=== PATIENT | male | born 1930 | race Caucasian/White ===

== ENCOUNTER 2016-09-12 18:03 | Inpatient (IN) | payer MEDICARE, OTHER ==
[2016-09-12 18:04] VITALS: PULSE 80; BMI 19.5
[2016-09-12] MEDS ORDERED: Vancomycin 1 gm/NS 200 ml 1 GM/200 ML BAG IVPB STA (18:53)
[2016-09-12] MEDS ORDERED: Cefepime IV 2 gm in Dextrose 2 GM/100 ML BAG IVPB STA (18:53)
[2016-09-12] MEDS ORDERED: Moxifloxacin IV 400mg/250ml NS 400 MG/250 ML BAG IVPB STA (18:53)
[2016-09-12 19:13] LABS: BASO # 0.1 K/uL (0.0-0.2); BASO % 0.5 % (0.0-2.0); EOS # 0.1 K/uL (0.0-0.7); EOS % 0.7 % (0.0-4.0); HEMATOCRIT 30.8 % (35.0-51.0); LYMPH # 0.7 K/uL (1.0-4.3); LYMPH % 4.1 % (20.0-40.0); MEAN CORPUSCULAR HEMOGLOBIN 26.8 pg (27.0-31.0); MEAN CORPUSCULAR HGB CONC 31.5 g/dL (33.0-37.0); MEAN PLATELET VOLUME 7.8 fL (7.2-11.7); MONO # 0.6 K/uL (0.0-0.8); MONO % 3.6 % (0.0-10.0); PLATELET COUNT 365 K/uL (130-400); RED CELL DISTRIBUTION WIDTH 13.6 % (11.5-14.5); WHITE BLOOD COUNT 15.7 K/uL (4.8-10.8)
[2016-09-12 19:13] LABS: VENOUS BLOOD GAS BASE EXCESS -4.8 mmol/L (0.0-2.0); VENOUS BLOOD GAS PCO2 47 mmHg (40-60); VENOUS BLOOD PH 7.28 (7.32-7.43)
--- NOTE | 2016-09-12 19:15 | C.PDOC ---
History Of Present Illness 86 y/o male sent from shelter for SOB and elevated white count. He was hypotensive and tachycardic. Pt poor historian. When asked why he is here, patient states he has "no idea what's happening...and feels fine." No complaints at this time. He was admitted here in Jun for CHF with pneumonia. He had a new onset afib at that time. Time Seen by Provider: 09/12/16 18:44 Chief Complaint (Nursing): Shortness Of Breath History Per: Patient History/Exam Limitations: clinical condition Recent travel outside of the [place]: No Additional History Per: [facility] Past Medical History Reviewed: Historical Data, Nursing Documentation, Vital Signs Vital Signs: Last Vital Signs Temp 97.2 F L 09/12/16 18:16 Pulse 103 H 09/12/16 20:48 Resp 24 09/12/16 20:48 BP 109/58 L 09/12/16 20:48 Pulse Ox 100 09/12/16 20:48 - Medical History PMH: Anemia, Arthritis, Bronchitis, COPD, Emphysema, Gastritis, HTN, Osteoporosis, Chronic Kidney Disease - [facility] Procedures BONE MARROW BIOPSY (10/20/03) CLOSED ENDOSCOPIC BIOPSY OF LARGE INTESTINE (05/02/14) COLONOSCOPY (10/20/03) ESOPHAGOGASTRODUODENOSCOPY [EGD] W/CLOSED BIOPSY (10/20/03) EXCISION OF ASCENDING COLON, ENDO, DIAGN (06/09/16) EXCISION OF LEFT UPPER LUNG LOBE, PERC APPROACH, DIAGN (06/09/16) EXCISION OF SIGMOID COLON, ENDO, DIAGN (06/09/16) EXCISION OF STOMACH, ENDO, DIAGN (06/09/16) INJECT STEROID (10/20/03) INJECTION INTO JOINT (10/20/03) INSPECTION OF UPPER INTESTINAL TRACT, ENDO (05/27/16) INTRODUCTION OF NUTRITIONAL INTO PERIPH ART, PERC APPROACH (06/09/16) PACKED CELL TRANSFUSION (10/20/03) RESECTION OF APPENDIX, OPEN APPROACH (06/09/16) RESECTION OF SIGMOID COLON, OPEN APPROACH (06/09/16) TRANSFUSE NONAUT RED BLOOD CELLS IN PERIPH VEIN, PERC (06/09/16) VACCINATION NEC (05/02/14) Family History: States: Unknown Family Hx, Diabetes - Social History Hx Tobacco Use: No (quit 15 yrs ago, was a heavy smoker) Hx Alcohol Use: Yes Hx Substance Use: No - Immunization History Hx Tetanus Toxoid Vaccination: No Hx Influenza Vaccination: No Hx Pneumococcal Vaccination: No Review Of Systems Review Of Systems: ROS cannot be obtained secondary to pt's inabilty to answer questions. Respiratory: Positive for: Shortness of Breath Physical Exam - Physical Exam Appears: In Acute Distress, Chronically Ill, Other (cachectic) Skin: Warm, Dry, No Rash Head: Atraumatic, Normacephalic Oral Mucosa: Dry Neck: Normal, Normal ROM, Supple Lymphatic: No Adenopathy Chest: Symmetrical Cardiovascular: Rhythm Regular (tachycardic), No Murmur Respiratory: No Accessory Muscle Use, No Rales, Rhonchi (course rhonchi L>R), No Wheezing Gastrointestinal/Abdominal: Soft, No Tenderness Back: Normal Inspection, No CVA Tenderness Extremity: No Pedal Edema Extremity: Bilateral: Atraumatic Neurological/Psych: Normal Motor, Normal Sensation ED Course And Treatment - Laboratory Results Result Diagrams: 09/12/16 19:06 09/12/16 19:06 Lab Interpretation: Abnormal (WBC 15.7 with left shift, BUN 116 Cr 2.6 c/w severe dehydration) ECG: Interpreted By Tn ECG Rhythm: Sinus Tachycardia ECG Interpretation: Abnormal O2 Sat by Pulse Oximetry: 100 (room air) Pulse Ox Interpretation: Normal - Radiology CXR: Interpreted by Me CXR Interpretation: Yes: Other (chronic interstitial changes. LLL pneumonia) Progress Note: Plan: labs, EKG, CXR, UA, avelox, maxipime in dextrose Reevaluation Time: 20:59 Reassessment Condition: Unchanged - Physician Consult Information Outcome Of Conversation: Case discussed with Dr Jayson Doan. Patient to be evaluated for admission to ICU due to severe dehydration with hypotension. IV fluids and antibiotics started in ED. Disposition - Disposition Disposition: HOSPITALIZED Disposition Time: 21:01 Condition: GUARDED - POA Present On Arrival: None - Clinical Impression Clinical Impression: Pneumonia, Severe dehydration, Hypotension - Scribe Statement The provider has reviewed the documentation as recorded by the Elaine Carpenter Provider Attestation: All medical record entries made by the Scribe were at my direction and personally dictated by me. I have reviewed the chart and agree that the record accurately reflects my personal performance of the history, physical exam, medical decision making, and the department course for this patient. I have also personally directed, reviewed, and agree with the discharge instructions and disposition.
[2016-09-12 19:22] LABS: POTASSIUM 4.5 mmol/L (3.6-5.2)
[2016-09-12 19:23] LABS: INR 1.2
[2016-09-12 19:24] LABS: BILIRUBIN,TOTAL 0.5 mg/dL (0.2-1.3)
[2016-09-12 19:25] LABS: CALCIUM 8.9 mg/dl (8.6-10.4); PHOSPHOROUS 5.1 mg/dL (2.5-4.5); TOTAL PROTEIN 7.2 g/dL (6.3-8.3)
[2016-09-12 19:26] LABS: MAGNESIUM 2.9 mg/dL (1.6-2.3)
[2016-09-12 19:29] LABS: ALB/GLOB RATIO 0.8 (1.0-2.1)
[2016-09-12] MEDS ORDERED: Sodium Chloride 0.9% 1,000 ML ONE (19:39)
[2016-09-12] MEDS ORDERED: Moxifloxacin IV 400mg/250ml NS 400 MG/250 ML BAG IVPB ONE (19:40)
[2016-09-12 19:55] LABS: NEUTROPHIL 89 % (50-75); TOTAL CELLS COUNTED 100
[2016-09-12] MEDS ORDERED: Sodium Chloride 0.9% 1,000 ML IV ONE (20:34)
[2016-09-12 20:54] LABS: RBC URINE < 1 /hpf (0-3); URINE BILIRUBIN NEGATIVE (NEGATIVE); URINE BLOOD NEGATIVE (NEGATIVE); URINE COLOR Yellow (YELLOW); URINE GLUCOSE (UA) NORMAL (Normal); URINE KETONE NEGATIVE (NEGATIVE); URINE LEUKOCYTE ESTERASE NEG Leu/uL (Negative); URINE PROTEIN NEGATIVE (NEGATIVE); URINE UROBILINOGEN NORMAL mg/dL (0.2-1.0); WBC URINE 2 /hpf (0-5)
--- NOTE | 2016-09-12 22:09 | CP.PCM.CON ---
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 patient had BUN/Cr of 27/1 on 08/17/16.Todays BUN/cr is 116/2.4 patient doesnot know why he was sent to hospital .daughter at bedside c/o cough and congestion,poor apitite and recent loss of weight.Denies chest pain and difficulty breathing Patient was living alone at home prior to admission to hospital end of may 2016.In [place] patient is wheelchair bound Review of Systems - Review of Systems Systems not reviewed;Unavailable: Unstable Vital Signs - Constitutional Constitutional: Anorexia, Fatigue, Weight Loss, Weakness. absent: Chills, Fever - EENT Eyes: absent: Change in Vision, Discharge Ears: absent: Ear Pain, Dizziness Nose/Mouth/Throat: absent: Nasal Congestion, Bleeding Gums, Dry Mouth, Neck Pain - Cardiovascular Cardiovascular: absent: Chest Pain, Diaphoresis, Dyspnea, Edema, Irregular Heart Rhythm, Leg Edema, Slow Heart Rate, Syncope - Respiratory Respiratory: Cough, Chest Congestion, Excessive Mucous Production. absent: Dyspnea, Hemoptysis, Wheezing - Gastrointestinal Gastrointestinal: absent: Abdominal Pain, Diarrhea, Nausea, Vomiting - Genitourinary Genitourinary: absent: Difficulty Urinating, Dysuria - Musculoskeletal Musculoskeletal: absent: Joint Swelling - Integumentary Integumentary: Dry Skin. 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 Alcohol: None (h/o excessive alchohol use in the past) Drugs: Denies - CARDIAC Hx Atrial Fibrillation: Yes Hx Hypertension: Yes - PULMONARY Hx Bronchitis: Yes Hx Chronic Obstructive Pulmonary Disease (COPD): Yes Hx Emphysema: Yes - NEUROLOGICAL Hx Neurological Disorder: No - HEENT Hx HEENT Problems: Yes Hx Cataracts: Yes - ENDOCRINE/METABOLIC Hx Hypothyroidism: No - HEMATOLOGICAL/ONCOLOGICAL Hx Anemia: Yes - INTEGUMENTARY Hx Dermatological Problems: No Hx Basil Cell: No Hx Sykes: No Hx Cellulitis: No Hx Eczema: No Hx Melanoma: No Hx Psoriasis: No Hx Squamous Cell: No Other/Comment: hx of temporary rashes. SI sacral ulcer - MUSCULOSKELETAL/RHEUMATOLOGICAL Hx Arthritis: Yes Hx Osteoporosis: Yes Other/Comment: h/o left hip surgery - GASTROINTESTINAL Hx Gastritis: Yes Other/Comment: Colon cancer and neuroendocrine tumor of appendix - GENITOURINARY/GYNECOLOGICAL Hx Sexually Transmitted Disorders: No - PSYCHIATRIC Hx Substance Use: No - SURGICAL HISTORY Hx Surgeries: Yes Hx Joint Replacement: Yes (left hip replacement) Hx Orthopedic Surgery: Yes (hip surgery) - ANESTHESIA Hx Anesthesia: Yes Hx Anesthesia Reactions: No Meds Allergies/Adverse Reactions: Allergies Allergy/AdvReac Type Severity Reaction Status Date / Time No Known Allergies Allergy Verified 05/27/16 01:08 Physical Exam - Constitutional Appears: No Acute Distress Additional comments: coughing - Head Exam Head Exam: ATRAUMATIC, NORMAL INSPECTION, NORMOCEPHALIC - Eye Exam Eye Exam: EOMI, Normal appearance Pupil Exam: NORMAL ACCOMODATION - ENT Exam ENT Exam: Mucous Membranes Dry - Neck Exam Neck exam: Positive for: Normal Inspection - Respiratory Exam Respiratory Exam: Rhonchi (bilateral rhonchi). absent: Chest Wall Tenderness, Rales, Respiratory Distress - Cardiovascular Exam Cardiovascular Exam: Tachycardia. absent: JVD - GI/Abdominal Exam GI & Abdominal Exam: Normal Bowel Sounds, Soft. absent: Guarding, Organomegaly , Tenderness - Rectal Exam Rectal Exam: Deferred - Exam Exam: NORMAL INSPECTION - Extremities Exam Extremities exam: Positive for: normal inspection. Negative for: calf tenderness, pedal edema, tenderness - Neurological Exam Neurological exam: Alert, Oriented x3 - Skin Skin Exam: Dry, Normal Color Results - Vital Signs Recent Vital Signs: Last Vital Signs Temp 97.2 F L 09/12/16 18:16 Pulse 102 H 09/12/16 21:11 Resp 25 H 09/12/16 21:11 BP 102/70 09/12/16 21:11 Pulse Ox 100 09/12/16 21:11 - Labs Result Diagrams: 09/12/16 19:06 09/12/16 19:06 - EKG Data EKG Interpreted by: Myself EKG shows normal: Sinus rhythm Rate: Tachycardia - Imaging and Cardiology Chest x-ray Status: Image reviewed by me (Bilateral increased intestitial markings,?mid lung infiltrates) Assessment & Plan - Assessment and Plan (Free Text) Assessment: 1.Acute Renal insufficiency/ dehydration- BUN/Cr was 27/1 on 08/17/16 slow hydration(pt with h/o CHF) hold lasix 2.Hypotension-?secondary to dehydration.r/o sepsis.Lactic acid normal.Chest xray with increased markings r/o pneumonia IV antibiotics given in ER rpt lactic acid level 3.H/O atrial fibrillation on [place]iltiazem in [place] 4.Hypothyrodism.Start meds.f/u TSH 5.anemia-f/u H/H 6.COPD-cont meds 7.Carcinoma colon/Neuroendocrine tumor appendix s/p resection,being f/u by Oncology
[2016-09-12 22:26] LABS: VENOUS BLOOD GAS BASE EXCESS -5.6 mmol/L (0.0-2.0); VENOUS BLOOD GAS PCO2 39 mmHg (40-60); VENOUS BLOOD PH 7.32 (7.32-7.43)
[2016-09-12] MEDS ORDERED: Dextrose 5%/0.9% NS 1,000 ML IV ONE (22:31)
[2016-09-12] MEDS ORDERED: guaiFENesin 100 mg/5 ml Syrup UD PO PRN (22:31)
[2016-09-13] MEDS: Albuterol-Ipratrop 3 mg / 0.5 (3 ml) UD INH SCH ×4 (02:14→19:17)
[2016-09-13 06:41] LABS: BASO # 0.1 K/uL (0.0-0.2); BASO % 0.4 % (0.0-2.0); EOS # 0.3 K/uL (0.0-0.7); LYMPH # 0.8 K/uL (1.0-4.3); LYMPH % 4.7 % (20.0-40.0); MEAN CELL VOLUME 84.9 fL (80.0-94.0); MEAN CORPUSCULAR HEMOGLOBIN 26.8 pg (27.0-31.0); MEAN CORPUSCULAR HGB CONC 31.6 g/dL (33.0-37.0); MEAN PLATELET VOLUME 7.5 fL (7.2-11.7); MONO # 0.7 K/uL (0.0-0.8); MONO % 4.4 % (0.0-10.0); PLATELET COUNT 299 K/uL (130-400); RED CELL DISTRIBUTION WIDTH 13.5 % (11.5-14.5); WHITE BLOOD COUNT 16.4 K/uL (4.8-10.8)
[2016-09-13] MEDS: Levothyroxine 100 MCG TAB PO SCH (06:42)
[2016-09-13 06:51] LABS: POTASSIUM 4.3 mmol/L (3.6-5.2)
[2016-09-13 06:53] LABS: ALB/GLOB RATIO 0.8 (1.0-2.1); BILIRUBIN,TOTAL 0.4 mg/dL (0.2-1.3); TOTAL PROTEIN 6.1 g/dL (6.3-8.3)
[2016-09-13 06:54] LABS: CALCIUM 8.1 mg/dl (8.6-10.4); PHOSPHOROUS 4.5 mg/dL (2.5-4.5)
[2016-09-13 06:55] LABS: MAGNESIUM 2.5 mg/dL (1.6-2.3)
[2016-09-13 07:24] LABS: THYROID STIMULATING HORMONE 0.62 mIU/L (0.46-4.68)
--- NOTE | 2016-09-13 07:48 | CP.CCUPN ---
Addendum entered and electronically signed by Tran Franco DO 09/13/16 12:31 : CT Chest: 12 mm right lung apex cavitary nodule re-identified, grossly stable. Irregular spiculated 10 mm nodule noted within the inferior aspect of the right upper lobe. 3.6 x 2.6 cm lingular masslike consolidation. Multiple additional scattered nodular and ground-glass patchy densities are evident. Bilateral left -[id number] compressive consolidations and small left pleural effusion. Recommend clinical correlation and continued follow-up. 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 Patient was admitted in June for CHF with pneumonia, where he had new onset A-Fib. Patient was seen and examined at bedside. He reports no SOB or pain. Patient is unaware of why he is in the hospital, states he feels fine. CCU Objective - Vital Signs / Intake & Output Vital Signs (Last 4 hours): Vital Signs Temp Pulse Resp BP Pulse Ox 09/13/16 06:00 91 H 26 H 121/57 L 98 09/13/16 05:00 100 H 24 113/53 L 100 09/13/16 04:00 97.6 F 09/13/16 03:59 82 21 115/60 100 Intake and Output (Last 8hrs): Intake & Output 09/12/16 09/13/16 09/13/16 22:59 06:59 14:59 Intake Total 800 Output Total 400 Balance 400 Intake: Intake, IV Amount 800 Left Forearm 800 Output: Urine 400 Urine, Voided 400 Other: Voiding Method Urinal - Physical Exam Head: Positive for: Atraumatic, Normocephalic Pupils: Positive for: PERRL Extroacular Muscles: Positive for: EOMI Mouth: Positive for: Dry Respiratory/Chest: Positive for: Decreased Breath Sounds, Rhonchi Cardiovascular: Positive for: Tachycardic Abdomen: Positive for: Normal Bowel Sounds Upper Extremity: Positive for: Normal Inspection, NORMAL PULSES. Negative for: Cyanosis, Edema Lower Extremity: Positive for: Normal Inspection, Edema, NORMAL PULSES. Negative for: CALF TENDERNESS Neurological: Positive for: GCS=15, CN II-XII Intact Skin: Positive for: Warm, Dry, Normal Color Psychiatric: Positive for: Alert, Oriented x 3 - Medications Active Medications: Active Medications Generic Name Dose Route Start Last Admin Trade Name Freq PRN Reason Stop Dose Admin Albuterol/Ipratropium 3 ml 09/13/16 02:00 09/13/16 07:26 Duoneb 3 Mg/0.5 Mg (3 Ml) Ud INH 3 ml RQ6 ANDREA Administration Famotidine 20 mg 09/13/16 10:00 Pepcid PO DAILY ANDREA Guaifenesin 100 mg 09/12/16 22:31 Robitussin PO Q4H PRN Cough Heparin Sodium (Porcine) 5,000 units 09/13/16 06:00 09/13/16 06:42 Heparin SC 5,000 units Q8 ANDREA Administration Dextrose/Sodium Chloride 1,000 mls @ 100 mls/hr 09/12/16 22:31 09/12/16 23:02 Dextrose 5%/0.9% Ns 1000 Ml IV 09/13/16 08:30 100 mls/hr .Q10H ONE Administration Moxifloxacin HCl 400 mg in 250 mls @ 167 mls/hr 09/13/16 10:00 Avelox Iv 400mg/250ml Ns IVPB Q24H [facility] Levothyroxine Sodium 100 mcg 09/13/16 06:30 09/13/16 06:42 Synthroid PO 100 mcg DAILY@0630 ANDREA Administration - Patient Studies Lab Studies: Lab Studies 09/13/16 09/13/16 09/13/16 Range/Units 06:52 06:38 06:38 WBC 16.4 H (4.8-10.8) K/uL RBC 3.06 L (4.40-5.90) Mil/uL Hgb 8.2 L (12.0-18.0) g/dL Hct 26.0 L (35.0-51.0) % MCV 84.9 (80.0-94.0) fL MCH 26.8 L (27.0-31.0) pg MCHC 31.6 L (33.0-37.0) g/dL RDW 13.5 (11.5-14.5) % Plt Count 299 (130-400) K/uL MPV 7.5 (7.2-11.7) fL Neut % (Auto) 88.5 H (50.0-75.0) % Lymph % (Auto) 4.7 L (20.0-40.0) % Wise % (Auto) 4.4 (0.0-10.0) % Eos % (Auto) 2.0 (0.0-4.0) % Baso % (Auto) 0.4 (0.0-2.0) % Neut # 14.5 H (1.8-7.0) K/uL Lymph # 0.8 L (1.0-4.3) K/uL Wise # 0.7 (0.0-0.8) K/uL Eos # 0.3 (0.0-0.7) K/uL Baso # 0.1 (0.0-0.2) K/uL pO2 (30-55) mm/Hg VBG pH (7.32-7.43) VBG pCO2 (40-60) mmHg VBG HCO3 mmol/L VBG Total CO2 (22-28) mmol/L VBG O2 Sat (Calc) (40-65) % VBG Base Excess (0.0-2.0) mmol/L VBG Potassium (3.6-5.2) mmol/L Sodium 140 (132-148) mmol/l Chloride 107 (98-107) mmol/L Glucose (75-110) mg/dl Lactate (0.7-2.1) mmol/L Potassium 4.3 (3.6-5.2) mmol/L Carbon Dioxide 18 L (22-30) mmol/L Anion Gap 19 (10-20) BUN 94 H (9-20) mg/dL Creatinine 2.0 H (0.8-1.5) MG/DL Est GFR ( Amer) 39 Est GFR (Non-Af Amer) 32 Random Glucose 104 (75-110) mg/dL Lactic Acid 1.2 (0.7-2.1) mmol/L Calcium 8.1 L (8.6-10.4) mg/dl Phosphorus 4.5 (2.5-4.5) mg/dL Magnesium 2.5 H (1.6-2.3) mg/dL Total Bilirubin 0.4 (0.2-1.3) mg/dL AST 11 L (17-59) U/L ALT 19 L D (21-72) U/L Alkaline Phosphatase 74 (38-126) U/L Total Protein 6.1 L (6.3-8.3) g/dL Albumin 2.8 L (3.5-5.0) g/dL Globulin 3.3 (2.2-3.9) gm/dL Albumin/Globulin Ratio 0.8 L (1.0-2.1) TSH 3rd Generation 0.62 (0.46-4.68) mIU/L Venous Blood Potassium (3.6-5.2) mmol/L /07/27 Range/Units 22:05 WBC (4.8-10.8) K/uL RBC (4.40-5.90) Mil/uL Hgb (12.0-18.0) g/dL Hct (35.0-51.0) % MCV (80.0-94.0) fL MCH (27.0-31.0) pg MCHC (33.0-37.0) g/dL RDW (11.5-14.5) % Plt Count (130-400) K/uL MPV (7.2-11.7) fL Neut % (Auto) (50.0-75.0) % Lymph % (Auto) (20.0-40.0) % Wise % (Auto) (0.0-10.0) % Eos % (Auto) (0.0-4.0) % Baso % (Auto) (0.0-2.0) % Neut # (1.8-7.0) K/uL Lymph # (1.0-4.3) K/uL Wise # (0.0-0.8) K/uL Eos # (0.0-0.7) K/uL Baso # (0.0-0.2) K/uL pO2 43 (30-55) mm/Hg VBG pH 7.32 (7.32-7.43) VBG pCO2 39 L (40-60) mmHg VBG HCO3 19.9 mmol/L VBG Total CO2 21.3 L (22-28) mmol/L VBG O2 Sat (Calc) 83.2 H (40-65) % VBG Base Excess -5.6 L (0.0-2.0) mmol/L VBG Potassium 4.1 (3.6-5.2) mmol/L Sodium 139.0 (132-148) mmol/l Chloride 111.0 H (98-107) mmol/L Glucose 82 (75-110) mg/dl Lactate 1.1 (0.7-2.1) mmol/L Potassium (3.6-5.2) mmol/L Carbon Dioxide (22-30) mmol/L Anion Gap (10-20) BUN (9-20) mg/dL Creatinine (0.8-1.5) MG/DL Est GFR ( Amer) Est GFR (Non-Af Amer) Random Glucose (75-110) mg/dL Lactic Acid (0.7-2.1) mmol/L Calcium (8.6-10.4) mg/dl Phosphorus (2.5-4.5) mg/dL Magnesium (1.6-2.3) mg/dL Total Bilirubin (0.2-1.3) mg/dL AST (17-59) U/L ALT (21-72) U/L Alkaline Phosphatase (38-126) U/L Total Protein (6.3-8.3) g/dL Albumin (3.5-5.0) g/dL Globulin (2.2-3.9) gm/dL Albumin/Globulin Ratio (1.0-2.1) TSH 3rd Generation (0.46-4.68) mIU/L Venous Blood Potassium 4.1 (3.6-5.2) mmol/L Laboratory Results - last 24 hr 09/12/16 09/13/16 09/13/16 22:05 06:38 06:38 WBC 16.4 H RBC 3.06 L Hgb 8.2 L Hct 26.0 L MCV 84.9 MCH 26.8 L MCHC 31.6 L RDW 13.5 Plt Count 299 MPV 7.5 Neut % (Auto) 88.5 H Lymph % (Auto) 4.7 L Wise % (Auto) 4.4 Eos % (Auto) 2.0 Baso % (Auto) 0.4 Neut # 14.5 H Lymph # 0.8 L Wise # 0.7 Eos # 0.3 Baso # 0.1 pO2 43 VBG pH 7.32 VBG pCO2 39 L VBG HCO3 19.9 VBG Total CO2 21.3 L VBG O2 Sat (Calc) 83.2 H VBG Base Excess -5.6 L VBG Potassium 4.1 Sodium 139.0 140 Chloride 111.0 H 107 Glucose 82 Lactate 1.1 Potassium 4.3 Carbon Dioxide 18 L Anion Gap 19 BUN 94 H Creatinine 2.0 H Est GFR ( Amer) 39 Est GFR (Non-Af Amer) 32 Random Glucose 104 Lactic Acid Calcium 8.1 L Phosphorus 4.5 Magnesium 2.5 H Total Bilirubin 0.4 AST 11 L ALT 19 L D Alkaline Phosphatase 74 Total Protein 6.1 L Albumin 2.8 L Globulin 3.3 Albumin/Globulin Ratio 0.8 L TSH 3rd Generation 0.62 Venous Blood Potassium 4.1 09/13/16 06:52 WBC RBC Hgb Hct MCV MCH MCHC RDW Plt Count MPV Neut % (Auto) Lymph % (Auto) Wise % (Auto) Eos % (Auto) Baso % (Auto) Neut # Lymph # Wise # Eos # Baso # pO2 VBG pH VBG pCO2 VBG HCO3 VBG Total CO2 VBG O2 Sat (Calc) VBG Base Excess VBG Potassium Sodium Chloride Glucose Lactate Potassium Carbon Dioxide Anion Gap BUN Creatinine Est GFR ( Amer) Est GFR (Non-Af Amer) Random Glucose Lactic Acid 1.2 Calcium Phosphorus Magnesium Total Bilirubin AST ALT Alkaline Phosphatase Total Protein Albumin Globulin Albumin/Globulin Ratio TSH 3rd Generation Venous Blood Potassium Assessment/Plan - Assessment and Plan (Free Text) Assessment: 86 M with PMHx of COPD, anemia, GI bleed, CHF (last ECHO done at 06/2015 EF 65 %), atrial fibrillation, hypothyroidism, history of colon carcinoma, and 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 Patient was admitted in June for CHF with pneumonia, where he had new onset A-Fib. Plan: Pneumonia * Afebrile, tachycardic, Leukocytosis, no bandemia, lactate level 1.6, 1.1 * CXR: increased lung markings, LLL infiltrate ? * Received cefepime and vanco in the ED, currently on Avelox. * On previous admission, chest ct on 06/22/16 showed: showed moderate bilateral pleural effusion increased from 05/08/2016. Multiple bilateral pulmonary nodules with cavitation in 2 right sided nodules, infectious vs neoplasm vs septic emboli. Several nonspecific ground-glass density (see full report). He underwent a lung biopsy ->>> PNA * ID consulted- Dr. Lorenzana- help appreciated * F/U CT CHEST * F/U procalcitonin Acute Renal Insufficiency * Severely dehydrated * Baseline creatine is 1.0-1.4. On admission BUN/CRE 116/2.6, now 94/2.0 * Slow IVF hydration @ 80cc/hr (hx of CHF) Hx of Anemia, GI bleed * Basline hemoglobin is 9-10. 9.7 on admission, currently 8.2 * Type and screen, crossmatch -2 units held * Continue Feosol * F/U stool occult * Monitor H/H Hx of A-Fib * Patient takes Cardizem 30mg PO Q8H and Midodrine 5mg PO BID- held due to hypotension Hypothyroidism * Resume home med: Synthroid 100mcg PO daily * TSH WNL Hx of CHF * Patient takes lasix 80mg PO daily - held due to hypotension * F/U ECHO Hx of COPD * Duonebs Carcinoma colon/Neuroendocrine tumor appendix s/p resection * Ex-Lap with resection of sigmoid mass and side to side anastomosis with Dr Agrawal. 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 * F/U by oncology BPH * Continue Flomax Prophylactic Measure * GI PPX: Pepcid 20mg PO daily * DVT PPX: Heparin 5000 SC Q8H * Heart Healthy Diet DW Joan Arias DO, PGY-1 <Yinka King - Last Filed: 09/13/16 14:55> CCU Objective - Vital Signs / Intake & Output Vital Signs (Last 4 hours): Vital Signs Temp Pulse Resp BP Pulse Ox 09/13/16 13:30 101 H 23 100 09/13/16 13:20 92 H 25 H 100 09/13/16 12:59 79 18 88/43 L 100 09/13/16 12:01 89 25 H 113/66 100 09/13/16 12:00 97.3 F L 100 09/13/16 11:01 85 18 96/40 L 100 Intake and Output (Last 8hrs): Intake & Output 09/12/16 09/13/16 09/13/16 22:59 06:59 14:59 Intake Total 800 1350 Output Total 400 250 Balance 400 1100 Intake: Intake, IV Amount 800 870 Left Forearm 800 870 Oral 480 Output: Urine 400 250 Urine, Voided 400 250 Other: Voiding Method Urinal # Voids Urine, Voided 0 # Bowel Movements 0 - Medications Active Medications: Active Medications Generic Name Dose Route Start Last Admin Trade Name Freq PRN Reason Stop Dose Admin Albuterol/Ipratropium 3 ml 09/13/16 02:00 09/13/16 13:00 Duoneb 3 Mg/0.5 Mg (3 Ml) Ud INH 3 ml RQ6 ANDREA Administration Famotidine 20 mg 09/13/16 10:00 09/13/16 09:37 Pepcid PO 20 mg DAILY ANDREA Administration Ferrous Sulfate 325 mg 09/13/16 10:00 09/13/16 09:37 Feosol PO 325 mg DAILY ANDREA Administration Folic Acid 1 mg 09/13/16 10:00 09/13/16 09:37 Folic Acid PO 1 mg DAILY ANDREA Administration Guaifenesin 100 mg 09/12/16 22:31 Robitussin PO Q4H PRN Cough Heparin Sodium (Porcine) 5,000 units 09/13/16 06:00 09/13/16 13:48 Heparin SC 5,000 units Q8 ANDREA Administration Moxifloxacin HCl 400 mg in 250 mls @ 167 mls/hr 09/13/16 10:00 09/13/16 09:37 Avelox Iv 400mg/250ml Ns IVPB 167 mls/hr Q24H ANDREA Administration Sodium Chloride 1,000 mls @ 80 mls/hr 09/13/16 08:15 09/13/16 09:35 Sodium Chloride 0.9% IV 80 mls/hr .[id number] ANDREA Administration Levothyroxine Sodium 100 mcg 09/13/16 06:30 09/13/16 06:42 Synthroid PO 100 mcg DAILY@0630 ANDREA Administration Megestrol Acetate 400 mg 09/13/16 10:45 09/13/16 11:32 Megace PO 400 mg DAILY ANDREA Administration Tamsulosin HCl 0.4 mg 09/13/16 10:00 09/13/16 09:37 Flomax PO 0.4 mg DAILY ANDREA Administration - Patient Studies Lab Studies: Lab Studies 09/13/16 09/13/16 09/13/16 Range/Units 09:06 09:06 06:52 WBC (4.8-10.8) K/uL RBC (4.40-5.90) Mil/uL Hgb (12.0-18.0) g/dL Hct (35.0-51.0) % MCV (80.0-94.0) fL MCH (27.0-31.0) pg MCHC (33.0-37.0) g/dL RDW (11.5-14.5) % Plt Count (130-400) K/uL MPV (7.2-11.7) fL Neut % (Auto) (50.0-75.0) % Lymph % (Auto) (20.0-40.0) % Wise % (Auto) (0.0-10.0) % Eos % (Auto) (0.0-4.0) % Baso % (Auto) (0.0-2.0) % Neut # (1.8-7.0) K/uL Lymph # (1.0-4.3) K/uL Wise # (0.0-0.8) K/uL Eos # (0.0-0.7) K/uL Baso # (0.0-0.2) K/uL Neutrophils % (Manual) (50-75) % Band Neutrophils % (0-2) % Lymphocytes % (Manual) (20-40) % Monocytes % (Manual) (0-10) % Eosinophils % (Manual) (0-4) % Toxic Granulation Platelet Estimate (NORMAL) Hypochromasia (manual) Poikilocytosis (manual Anisocytosis (manual) pO2 (30-55) mm/Hg VBG pH (7.32-7.43) VBG pCO2 (40-60) mmHg VBG HCO3 mmol/L VBG Total CO2 (22-28) mmol/L VBG O2 Sat (Calc) (40-65) % VBG Base Excess (0.0-2.0) mmol/L VBG Potassium (3.6-5.2) mmol/L Sodium (132-148) mmol/l Chloride (98-107) mmol/L Glucose (75-110) mg/dl Lactate (0.7-2.1) mmol/L Potassium (3.6-5.2) mmol/L Carbon Dioxide (22-30) mmol/L Anion Gap (10-20) BUN (9-20) mg/dL Creatinine (0.8-1.5) MG/DL Est GFR ( Amer) Est GFR (Non-Af Amer) Random Glucose (75-110) mg/dL Lactic Acid 1.2 (0.7-2.1) mmol/L Calcium (8.6-10.4) mg/dl Phosphorus (2.5-4.5) mg/dL Magnesium (1.6-2.3) mg/dL Total Bilirubin (0.2-1.3) mg/dL AST (17-59) U/L ALT (21-72) U/L Alkaline Phosphatase (38-126) U/L Total Protein (6.3-8.3) g/dL Albumin (3.5-5.0) g/dL Globulin (2.2-3.9) gm/dL Albumin/Globulin Ratio (1.0-2.1) Procalcitonin 0.67 H (0.19-0.49) NG/ML TSH 3rd Generation (0.46-4.68) mIU/L Venous Blood Potassium (3.6-5.2) mmol/L Blood Type A POSITIVE Antibody Screen Negative 09/13/16 09/13/16 09/12/16 Range/Units 06:38 06:38 22:05 WBC 16.4 H (4.8-10.8) K/uL RBC 3.06 L (4.40-5.90) Mil/uL Hgb 8.2 L (12.0-18.0) g/dL Hct 26.0 L (35.0-51.0) % MCV 84.9 (80.0-94.0) fL MCH 26.8 L (27.0-31.0) pg MCHC 31.6 L (33.0-37.0) g/dL RDW 13.5 (11.5-14.5) % Plt Count 299 (130-400) K/uL MPV 7.5 (7.2-11.7) fL Neut % (Auto) 88.5 H (50.0-75.0) % Lymph % (Auto) 4.7 L (20.0-40.0) % Wise % (Auto) 4.4 (0.0-10.0) % Eos % (Auto) 2.0 (0.0-4.0) % Baso % (Auto) 0.4 (0.0-2.0) % Neut # 14.5 H (1.8-7.0) K/uL Lymph # 0.8 L (1.0-4.3) K/uL Wise # 0.7 (0.0-0.8) K/uL Eos # 0.3 (0.0-0.7) K/uL Baso # 0.1 (0.0-0.2) K/uL Neutrophils % (Manual) 82 H (50-75) % Band Neutrophils % 1 (0-2) % Lymphocytes % (Manual) 6 L (20-40) % Monocytes % (Manual) 9 (0-10) % Eosinophils % (Manual) 2 (0-4) % Toxic Granulation Present Platelet Estimate Normal (NORMAL) Hypochromasia (manual) Slight Poikilocytosis (manual Slight Anisocytosis (manual) Slight pO2 43 (30-55) mm/Hg VBG pH 7.32 (7.32-7.43) VBG pCO2 39 L (40-60) mmHg VBG HCO3 19.9 mmol/L VBG Total CO2 21.3 L (22-28) mmol/L VBG O2 Sat (Calc) 83.2 H (40-65) % VBG Base Excess -5.6 L (0.0-2.0) mmol/L VBG Potassium 4.1 (3.6-5.2) mmol/L Sodium 140 139.0 (132-148) mmol/l Chloride 107 111.0 H (98-107) mmol/L Glucose 82 (75-110) mg/dl Lactate 1.1 (0.7-2.1) mmol/L Potassium 4.3 (3.6-5.2) mmol/L Carbon Dioxide 18 L (22-30) mmol/L Anion Gap 19 (10-20) BUN 94 H (9-20) mg/dL Creatinine 2.0 H (0.8-1.5) MG/DL Est GFR ( Amer) 39 Est GFR (Non-Af Amer) 32 Random Glucose 104 (75-110) mg/dL Lactic Acid (0.7-2.1) mmol/L Calcium 8.1 L (8.6-10.4) mg/dl Phosphorus 4.5 (2.5-4.5) mg/dL Magnesium 2.5 H (1.6-2.3) mg/dL Total Bilirubin 0.4 (0.2-1.3) mg/dL AST 11 L (17-59) U/L ALT 19 L D (21-72) U/L Alkaline Phosphatase 74 (38-126) U/L Total Protein 6.1 L (6.3-8.3) g/dL Albumin 2.8 L (3.5-5.0) g/dL Globulin 3.3 (2.2-3.9) gm/dL Albumin/Globulin Ratio 0.8 L (1.0-2.1) Procalcitonin (0.19-0.49) NG/ML TSH 3rd Generation 0.62 (0.46-4.68) mIU/L Venous Blood Potassium 4.1 (3.6-5.2) mmol/L Blood Type Antibody Screen Laboratory Results - last 24 hr 09/12/16 09/13/16 09/13/16 22:05 06:38 06:38 WBC 16.4 H RBC 3.06 L Hgb 8.2 L Hct 26.0 L MCV 84.9 MCH 26.8 L MCHC 31.6 L RDW 13.5 Plt Count 299 MPV 7.5 Neut % (Auto) 88.5 H Lymph % (Auto) 4.7 L Wise % (Auto) 4.4 Eos % (Auto) 2.0 Baso % (Auto) 0.4 Neut # 14.5 H Lymph # 0.8 L Wise # 0.7 Eos # 0.3 Baso # 0.1 Neutrophils % (Manual) 82 H Band Neutrophils % 1 Lymphocytes % (Manual) 6 L Monocytes % (Manual) 9 Eosinophils % (Manual) 2 Toxic Granulation Present Platelet Estimate Normal Hypochromasia (manual) Slight Poikilocytosis (manual Slight Anisocytosis (manual) Slight pO2 43 VBG pH 7.32 VBG pCO2 39 L VBG HCO3 19.9 VBG Total CO2 21.3 L VBG O2 Sat (Calc) 83.2 H VBG Base Excess -5.6 L VBG Potassium 4.1 Sodium 139.0 140 Chloride 111.0 H 107 Glucose 82 Lactate 1.1 Potassium 4.3 Carbon Dioxide 18 L Anion Gap 19 BUN 94 H Creatinine 2.0 H Est GFR ( Amer) 39 Est GFR (Non-Af Amer) 32 Random Glucose 104 Lactic Acid Calcium 8.1 L Phosphorus 4.5 Magnesium 2.5 H Total Bilirubin 0.4 AST 11 L ALT 19 L D Alkaline Phosphatase 74 Total Protein 6.1 L Albumin 2.8 L Globulin 3.3 Albumin/Globulin Ratio 0.8 L Procalcitonin TSH 3rd Generation 0.62 Venous Blood Potassium 4.1 Blood Type Antibody Screen 09/13/16 09/13/16 09/13/16 06:52 09:06 09:06 WBC RBC Hgb Hct MCV MCH MCHC RDW Plt Count MPV Neut % (Auto) Lymph % (Auto) Wise % (Auto) Eos % (Auto) Baso % (Auto) Neut # Lymph # Wise # Eos # Baso # Neutrophils % (Manual) Band Neutrophils % Lymphocytes % (Manual) Monocytes % (Manual) Eosinophils % (Manual) Toxic Granulation Platelet Estimate Hypochromasia (manual) Poikilocytosis (manual Anisocytosis (manual) pO2 VBG pH VBG pCO2 VBG HCO3 VBG Total CO2 VBG O2 Sat (Calc) VBG Base Excess VBG Potassium Sodium Chloride Glucose Lactate Potassium Carbon Dioxide Anion Gap BUN Creatinine Est GFR ( Amer) Est GFR (Non-Af Amer) Random Glucose Lactic Acid 1.2 Calcium Phosphorus Magnesium Total Bilirubin AST ALT Alkaline Phosphatase Total Protein Albumin Globulin Albumin/Globulin Ratio Procalcitonin 0.67 H TSH 3rd Generation Venous Blood Potassium Blood Type A POSITIVE Antibody Screen Negative Critical Care Progress Note - Nutrition Nutrition: Nutrition Category Date Time Status Heart Healthy Diet [DIET] Diets 09/13/16 Breakfast Active Attending/Attestation - Attestation I have personally seen and examined this patient.: Yes I have fully participated in the care of the patient.: Yes I have reviewed all pertinent clinical information: Yes Notes (Text): 09/13/16 14:53 I have seen and examined the patient. Medical records, lab studies, and imaging were reviewed by me and a management plan was formulated on multidisciplinary rounds with resident Dr. Franco. I agree with their above documented assessment and plan. Patient's chest CT shows improvement of pneumonia. WBC rising, unsure why, will reassess abx with Dr. Salomón RODRIGEZ. Assessing questionable history of CHF with echo. Critical Care Time 35 minutes. Multi-disciplinary rounds were performed with house staff, nursing, speech therapy, respiratory therapy, pharmacy and nutrition with integrated input from the primary team/attending and other consulting services. The documented time is cumulative and includes review of patient data/exams/labs/chart review and examination of the patient on rounds and throughout the day; time is exclusive of any procedures or teaching time.
--- NOTE | 2016-09-13 08:53 | RAD ---
PROCEDURE: CHEST RADIOGRAPH, 1 VIEW HISTORY: ?pneumonia COMPARISON: 09/12/2016 FINDINGS: LUNGS: Confluent consolidative changes seen within the left mid to lower lung zone laterally. Diffuse increased interstitial lung markings. Moderate venous congestion. Milder patchy left basilar airspace opacity. Right hilar prominence. Biapical pleural thickening with upper lobe granulomatous changes. PLEURA: As above. CARDIOVASCULAR: Normal. OSSEOUS STRUCTURES: Deformities of several right lateral ribs, likely chronic. Question deformity of the mid right clavicle which may be artifact. Clinical correlation. VISUALIZED UPPER ABDOMEN: Normal. OTHER FINDINGS: None. IMPRESSION: Confluent consolidative changes seen within the left mid to lower lung zone laterally. Post treatment interval followup study would be helpful. Diffuse increased interstitial lung markings. Moderate venous congestion. Milder patchy left basilar airspace opacity. Right hilar prominence. Biapical pleural thickening with upper lobe granulomatous changes.
--- NOTE | 2016-09-13 08:56 | RAD ---
HISTORY: Sepsis Patient COMPARISON: 07/02/2016 FINDINGS: LUNGS: Diffuse increased interstitial lung markings throughout the left lung suggestive for infiltrate and or edema. Bilateral hilar prominence. Biapical pleural thickening with upper lobe granulomatous changes. PLEURA: As above. CARDIOVASCULAR: Normal. OSSEOUS STRUCTURES: Deformities of several right lateral ribs. VISUALIZED UPPER ABDOMEN: Normal. OTHER FINDINGS: None. IMPRESSION: Diffuse increased interstitial lung markings throughout the left lung suggestive for infiltrate and or edema. Bilateral hilar prominence. Biapical pleural thickening with upper lobe granulomatous changes.
[2016-09-13 09:12] LABS: EOSINOPHIL 2 % (0-4); NEUTROPHIL 82 % (50-75); TOTAL CELLS COUNTED 100
[2016-09-13] MEDS: Sodium Chloride 0.9% 1,000 ML IV SCH ×2 (09:35→21:45)
[2016-09-13] MEDS: Moxifloxacin IV 400mg/250ml NS 400 MG/250 ML BAG IVPB SCH (09:37)
[2016-09-13] MEDS: Megestrol Acetate 40 mg/ml Cup PO SCH (11:32)
--- NOTE | 2016-09-13 12:15 | CT ---
CT chest without IV contrast Indication: Shortness of breath, pneumonia, severe dehydration Technique: Contiguous axial images were obtained through the chest without intravenous contrast enhancement. Sagittal and coronal reconstructions were generated and reviewed. This CT exam was performed using 1 or more of the falling dose reduction techniques: Automated exposure control, adjustment of the MAA and/or kV according to patient size, and/or use of iterative reconstruction technique. Radiation dose (DLP): 292.91 MGy-cm. Comparison: Chest x-ray performed 09/13/16, CT chest without contrast performed 06/22/16 Findings: Visualized portions of the inferior thyroid gland appear unremarkable. The heart appears within normal limits of size. Dense coronary artery calcifications. Dense atherosclerotic calcifications of the thoracic in included abdominal aorta. 12 mm right lung apex cavitary nodule re-identified, grossly stable. Irregular spiculated 10 mm nodule noted within the inferior aspect of the right upper lobe. 3.6 x 2.6 cm lingular masslike consolidation. Multiple additional scattered nodular and ground-glass patchy densities are evident. Bilateral [id number]-right compressive consolidations and small left pleural effusion. No pneumothorax. Limited visualization of the noncontrast upper abdomen demonstrates partially imaged gallstones. Osseous demineralization. Multilevel degenerative changes. Multiple compression fracture deformities. Vertebral plana at L1. Impression: 12 mm right lung apex cavitary nodule re-identified, grossly stable. Irregular spiculated 10 mm nodule noted within the inferior aspect of the right upper lobe. 3.6 x 2.6 cm lingular masslike consolidation. Multiple additional scattered nodular and ground-glass patchy densities are evident. Bilateral [id number]-right compressive consolidations and small left pleural effusion. Recommend clinical correlation and continued follow-up. Partially imaged cholelithiasis.
--- NOTE | 2016-09-13 14:21 | CP.PCM.CON ---
History of Present Illness - History of Present Illness History of Present Illness: Palliative consult requested by Joan MOTA Reason: Goals of care discussion Patient is a 86 yo male admitted [place] [facility] with SOB, hypotnsion, tachycardia , and decreased PO intake. CXR upon admission showed venous congestion and granulomatous changes. The CT chest confirmed right upper lobe mass 3.6 X 2.6 cm. WBC 16.4 on admission. Avelox IV started. BUN 94, Bartender Server 2.0. Doctor Paul called for consult. Hb 8.2 today, was 9.7 on admission. PMH: A fib, colon CA, excision of sigmoid colon in , Left lung Bx, anemia, COPD, HTN. OA Soc. 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 hx: Unknown Review of Systems - Review of Systems Systems not reviewed;Unavailable: Acuity of Condition, Altered Mental Status Past Patient History - Infectious Disease Hx of Infectious Diseases: None - Past Medical History & Family History Past Medical History?: Yes - Past Social History Smoking Status: Never Smoked - CARDIAC Hx Cardiac Disorders: Yes Hx Atrial Fibrillation: Yes Hx Hypertension: Yes - PULMONARY Hx Respiratory Disorders: Yes Hx Bronchitis: Yes Hx Chronic Obstructive Pulmonary Disease (COPD): Yes Hx Emphysema: Yes - NEUROLOGICAL Hx Neurological Disorder: No - HEENT Hx HEENT Problems: Yes Hx Cataracts: Yes - RENAL Hx Chronic Kidney Disease: Yes - ENDOCRINE/METABOLIC Hx Endocrine Disorders: No - HEMATOLOGICAL/ONCOLOGICAL Hx Blood Disorders: Yes Hx Anemia: Yes Hx Cancer: Yes - INTEGUMENTARY Hx Dermatological Problems: Yes Other/Comment: hx of temporary rashes. 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 - GENITOURINARY/GYNECOLOGICAL Hx Genitourinary Disorders: No - PSYCHIATRIC Hx Substance Use: No - SURGICAL HISTORY Hx Surgeries: Yes Hx Joint Replacement: Yes (left hip replacement) Hx Orthopedic Surgery: Yes (hip surgery) Other/Comment: colon resection 06/2016 - ANESTHESIA Hx Anesthesia: Yes Hx Anesthesia Reactions: No Hx Malignant Hyperthermia: No Has any member of the family had a problem w/ anesthesia?: No Meds Allergies/Adverse Reactions: Allergies Allergy/AdvReac Type Severity Reaction Status Date / Time No Known Allergies Allergy Verified 05/27/16 01:08 - Medications Medications: Current Medications Albuterol/Ipratropium (Duoneb 3 Mg/0.5 Mg (3 Ml) Ud) 3 ml INH RQ6 [facility] Last Admin: 09/13/16 13:00 Dose: 3 ml Famotidine (Pepcid) 20 mg PO DAILY [facility] Last Admin: 09/13/16 09:37 Dose: 20 mg Ferrous Sulfate (Feosol) 325 mg PO DAILY [facility] Last Admin: 09/13/16 09:37 Dose: 325 mg Folic Acid (Folic Acid) 1 mg PO DAILY [facility] Last Admin: 09/13/16 09:37 Dose: 1 mg Guaifenesin (Robitussin) 100 mg PO Q4H PRN PRN Reason: Cough Heparin Sodium (Porcine) (Heparin) 5,000 units SC Q8 [facility] Last Admin: 09/13/16 13:48 Dose: 5,000 units Moxifloxacin HCl (Avelox Iv 400mg/250ml Ns) 400 mg in 250 mls @ 167 mls/hr IVPB Q24H [facility] Last Admin: 09/13/16 09:37 Dose: 167 mls/hr Sodium Chloride (Sodium Chloride 0.9%) 1,000 mls @ 80 mls/hr IV .[id number] [facility] Last Admin: 09/13/16 09:35 Dose: 80 mls/hr Levothyroxine Sodium (Synthroid) 100 mcg PO DAILY@0630 [facility] Last Admin: 09/13/16 06:42 Dose: 100 mcg Megestrol Acetate (Megace) 400 mg PO DAILY [facility] Last Admin: 09/13/16 11:32 Dose: 400 mg Tamsulosin HCl (Flomax) 0.4 mg PO DAILY [facility] Last Admin: 09/13/16 09:37 Dose: 0.4 mg Physical Exam - Constitutional Appears: Chronically Ill - Head Exam Head Exam: ATRAUMATIC, NORMAL INSPECTION, NORMOCEPHALIC - Eye Exam Eye Exam: EOMI, Normal appearance, PERRL Pupil Exam: NORMAL ACCOMODATION, PERRL - ENT Exam ENT Exam: Mucous Membranes Moist, Normal Exam - Neck Exam Neck exam: Positive for: Normal Inspection - Respiratory Exam Respiratory Exam: Decreased Breath Sounds, Rhonchi, NORMAL BREATHING PATTERN - Cardiovascular Exam Cardiovascular Exam: Tachycardia, REGULAR RHYTHM, +S1, +S2 - GI/Abdominal Exam GI & Abdominal Exam: Hypoactive Bowel Sounds - Rectal Exam Rectal Exam: Deferred - Extremities Exam Extremities exam: Positive for: normal inspection - Back Exam Back exam: NORMAL INSPECTION - Neurological Exam Neurological exam: Alert, Altered - Psychiatric Exam Psychiatric exam: Flat Affect - Skin Skin Exam: Dry Results - Vital Signs Recent Vital Signs: Last Vital Signs Temp 97.3 F L 09/13/16 12:00 Pulse 101 H 09/13/16 13:30 Resp 23 09/13/16 13:30 BP 88/43 L 09/13/16 12:59 Pulse Ox 100 09/13/16 13:30 - Labs Result Diagrams: 09/13/16 06:38 09/13/16 06:38 Labs: Laboratory Results - last 24 hr 09/12/16 09/13/16 09/13/16 22:05 06:38 06:38 WBC 16.4 H RBC 3.06 L Hgb 8.2 L Hct 26.0 L MCV 84.9 MCH 26.8 L MCHC 31.6 L RDW 13.5 Plt Count 299 MPV 7.5 Neut % (Auto) 88.5 H Lymph % (Auto) 4.7 L [place] % (Auto) 4.4 Eos % (Auto) 2.0 Baso % (Auto) 0.4 Neut # 14.5 H Lymph # 0.8 L [place] # 0.7 Eos # 0.3 Baso # 0.1 Neutrophils % (Manual) 82 H Band Neutrophils % 1 Lymphocytes % (Manual) 6 L Monocytes % (Manual) 9 Eosinophils % (Manual) 2 Toxic Granulation Present Platelet Estimate Normal Hypochromasia (manual) Slight Poikilocytosis (manual Slight Anisocytosis (manual) Slight pO2 43 VBG pH 7.32 VBG pCO2 39 L VBG HCO3 19.9 VBG Total CO2 21.3 L VBG O2 Sat (Calc) 83.2 H VBG Base Excess -5.6 L VBG Potassium 4.1 Sodium 139.0 140 Chloride 111.0 H 107 Glucose 82 Lactate 1.1 Potassium 4.3 Carbon Dioxide 18 L Anion Gap 19 BUN 94 H Creatinine 2.0 H Est GFR ( Amer) 39 Est GFR (Non-Af Amer) 32 Random Glucose 104 Lactic Acid Calcium 8.1 L Phosphorus 4.5 Magnesium 2.5 H Total Bilirubin 0.4 AST 11 L ALT 19 L D Alkaline Phosphatase 74 Total Protein 6.1 L Albumin 2.8 L Globulin 3.3 Albumin/Globulin Ratio 0.8 L Procalcitonin TSH 3rd Generation 0.62 Venous Blood Potassium 4.1 Blood Type Antibody Screen 09/13/16 09/13/16 09/13/16 06:52 09:06 09:06 WBC RBC Hgb Hct MCV MCH MCHC RDW Plt Count MPV Neut % (Auto) Lymph % (Auto) [place] % (Auto) Eos % (Auto) Baso % (Auto) Neut # Lymph # [place] # Eos # Baso # Neutrophils % (Manual) Band Neutrophils % Lymphocytes % (Manual) Monocytes % (Manual) Eosinophils % (Manual) Toxic Granulation Platelet Estimate Hypochromasia (manual) Poikilocytosis (manual Anisocytosis (manual) pO2 VBG pH VBG pCO2 VBG HCO3 VBG Total CO2 VBG O2 Sat (Calc) VBG Base Excess VBG Potassium Sodium Chloride Glucose Lactate Potassium Carbon Dioxide Anion Gap BUN Creatinine Est GFR ( Amer) Est GFR (Non-Af Amer) Random Glucose Lactic Acid 1.2 Calcium Phosphorus Magnesium Total Bilirubin AST ALT Alkaline Phosphatase Total Protein Albumin Globulin Albumin/Globulin Ratio Procalcitonin 0.67 H TSH 3rd Generation Venous Blood Potassium Blood Type A POSITIVE Antibody Screen Negative Assessment & Plan - Assessment and Plan (Free Text) Assessment: Palliative consult Code status Full Code. No Advance directive on chart. PPS 20 %. YURY unobtainable due to acuity of condition and AMS I reviewed medical records, all diagnostic studies, examined patient in the bed and discussed goals of care with patient's daughter Oneyda at bed side. Patient is alert, but altered. Patient looks chronically ill. Patient is able only to answer simple questions. Patient unable to participate in decision making discussion. I met with patient's daughter Oneyda. Oneyda stated noticing changes in her father's condition since the Colon Sx in . She sees him looking more tired, depressed, with decreased appetite. She sees slow decline in patient's condition. The daughter siggessts that patient lost his [place] dent[place] and chewing become a problem for him. Patient likes fruit cup, pasta, oat meal and mashed potato. 91 lb at present. Ensure TID ordered and Dietitian consult. I reviewed the latest test results with the daughter, including the CT chest showing right upper lobe mass. Oneyda recalls that last lung Bx was negative. Patient was fallowed by Doctor Chu. We discussed goals of care and Code status. Oneyda agrees that her father is not able to be left home alone any more, and that bed bug exterminator facility placement looks like best option. She would also want her father to be allowed natural when he reaches the point that all prudent medical interventions were exhausted. Oneyda will talk to her sister before signing the POLST form. Daughter would like Doctor Vlad to continue taking care of her father. Impression * Anemia * Confusion * Weight loss * Decreassed appetite * Dehydration * Moist cough, chest congestion * generalized weakness * Right lung mass seen on CT * Patient's wishes for the end of life care are not known * Patient unable to participate in end of life care discussion due to confusion * Patient's daughter Oneyda prefers natural for the father. She would want to talk to her sister before POLST signed Suggestion * Soft diet, patient prefers pasta, fruit cup, mashed potato * Offer PO fluids as tolerated * Doctor Chu to fallow up with lung mass Palliative care will continue to fallow up with goals of care based on patient' s progress.
--- NOTE | 2016-09-13 16:03 | CP.PCM.HP ---
History of Present Illness - History of Present Illness History of Present Illness: 86-year-old male patient with a past medical history of COPD, emphysema, hypertension, osteoporosis, chronic kidney disease sent [facility] to [facility] ED for shortness of breath and elevated white count. Patient was hypotensive and tachycardic with. Patient is poor historian. When asked why he is here, patient states he has "no idea what is happening and feels fine". No complaint at this time. Patient was admitted here in June for CHF with pneumonia. Patient had a new onset atrial fibrillation at the time. Present on Admission - Present on Admission Any Indicators Present on Admission: No Past Patient History - Infectious Disease Hx of Infectious Diseases: None - Past Medical History & Family History Past Medical History?: Yes - Past Social History Smoking Status: Never Smoked - CARDIAC Hx Cardiac Disorders: Yes Hx Atrial Fibrillation: Yes Hx Hypertension: Yes - PULMONARY Hx Respiratory Disorders: Yes Hx Bronchitis: Yes Hx Chronic Obstructive Pulmonary Disease (COPD): Yes Hx Emphysema: Yes - NEUROLOGICAL Hx Neurological Disorder: No - HEENT Hx HEENT Problems: Yes Hx Cataracts: Yes - RENAL Hx Chronic Kidney Disease: Yes - ENDOCRINE/METABOLIC Hx Endocrine Disorders: No - HEMATOLOGICAL/ONCOLOGICAL Hx Blood Disorders: Yes Hx Anemia: Yes Hx Cancer: Yes - INTEGUMENTARY Hx Dermatological Problems: Yes Other/Comment: hx of temporary rashes. 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 - GENITOURINARY/GYNECOLOGICAL Hx Genitourinary Disorders: No - PSYCHIATRIC Hx Substance Use: No - SURGICAL HISTORY Hx Surgeries: Yes Hx Joint Replacement: Yes (left hip replacement) Hx Orthopedic Surgery: Yes (hip surgery) Other/Comment: colon resection 06/2016 - ANESTHESIA Hx Anesthesia: Yes Hx Anesthesia Reactions: No Hx Malignant Hyperthermia: No Has any member of the family had a problem w/ anesthesia?: No Meds Allergies/Adverse Reactions: Allergies Allergy/AdvReac Type Severity Reaction Status Date / Time No Known Allergies Allergy Verified 05/27/16 01:08 Results - Vital Signs Recent Vital Signs: Last Vital Signs Temp 97.3 F L 09/13/16 12:00 Pulse 90 09/13/16 15:10 Resp 21 09/13/16 15:10 BP 99/47 L 09/13/16 14:59 Pulse Ox 100 09/13/16 15:10 - Labs Result Diagrams: 09/24/16 07:00 09/24/16 07:00 Labs: Laboratory Results - last 24 hr 09/12/16 09/13/16 09/13/16 22:05 06:38 06:38 WBC 16.4 H RBC 3.06 L Hgb 8.2 L Hct 26.0 L MCV 84.9 MCH 26.8 L MCHC 31.6 L RDW 13.5 Plt Count 299 MPV 7.5 Neut % (Auto) 88.5 H Lymph % (Auto) 4.7 L [place] % (Auto) 4.4 Eos % (Auto) 2.0 Baso % (Auto) 0.4 Neut # 14.5 H Lymph # 0.8 L [place] # 0.7 Eos # 0.3 Baso # 0.1 Neutrophils % (Manual) 82 H Band Neutrophils % 1 Lymphocytes % (Manual) 6 L Monocytes % (Manual) 9 Eosinophils % (Manual) 2 Toxic Granulation Present Platelet Estimate Normal Hypochromasia (manual) Slight Poikilocytosis (manual Slight Anisocytosis (manual) Slight pO2 43 VBG pH 7.32 VBG pCO2 39 L VBG HCO3 19.9 VBG Total CO2 21.3 L VBG O2 Sat (Calc) 83.2 H VBG Base Excess -5.6 L VBG Potassium 4.1 Sodium 139.0 140 Chloride 111.0 H 107 Glucose 82 Lactate 1.1 Potassium 4.3 Carbon Dioxide 18 L Anion Gap 19 BUN 94 H Creatinine 2.0 H Est GFR ( Amer) 39 Est GFR (Non-Af Amer) 32 Random Glucose 104 Lactic Acid Calcium 8.1 L Phosphorus 4.5 Magnesium 2.5 H Total Bilirubin 0.4 AST 11 L ALT 19 L D Alkaline Phosphatase 74 Total Protein 6.1 L Albumin 2.8 L Globulin 3.3 Albumin/Globulin Ratio 0.8 L Procalcitonin TSH 3rd Generation 0.62 Venous Blood Potassium 4.1 Blood Type Antibody Screen 09/13/16 09/13/16 09/13/16 06:52 09:06 09:06 WBC RBC Hgb Hct MCV MCH MCHC RDW Plt Count MPV Neut % (Auto) Lymph % (Auto) [place] % (Auto) Eos % (Auto) Baso % (Auto) Neut # Lymph # [place] # Eos # Baso # Neutrophils % (Manual) Band Neutrophils % Lymphocytes % (Manual) Monocytes % (Manual) Eosinophils % (Manual) Toxic Granulation Platelet Estimate Hypochromasia (manual) Poikilocytosis (manual Anisocytosis (manual) pO2 VBG pH VBG pCO2 VBG HCO3 VBG Total CO2 VBG O2 Sat (Calc) VBG Base Excess VBG Potassium Sodium Chloride Glucose Lactate Potassium Carbon Dioxide Anion Gap BUN Creatinine Est GFR ( Amer) Est GFR (Non-Af Amer) Random Glucose Lactic Acid 1.2 Calcium Phosphorus Magnesium Total Bilirubin AST ALT Alkaline Phosphatase Total Protein Albumin Globulin Albumin/Globulin Ratio Procalcitonin 0.67 H TSH 3rd Generation Venous Blood Potassium Blood Type A POSITIVE Antibody Screen Negative Assessment & Plan (1) NOEMI (acute kidney injury) Status: Acute (2) Abdominal pain Status: Acute (3) Anemia Status: Acute (4) Anemia Status: Acute (5) Antral gastritis Status: Acute (6) Atrial fibrillation with rapid ventricular response Status: Acute (7) Chest pain Status: Acute (8) Coagulopathy Status: Acute (9) Coffee ground emesis Status: Acute (10) Colon cancer Status: Acute (11) Constipation Status: Acute (12) Contusion Status: Acute (13) Dehydration Status: Acute (14) Disorder of mediastinum Status: Acute (15) Dyspnea Status: Acute (16) Fall Status: Acute (17) GI bleed Status: Acute (18) Gastritis Status: Acute (19) Gastritis Status: Acute (20) Gouty arthritis Status: Acute (21) Hyperkalemia Status: Acute (22) Hypotension Status: Acute (23) Hypotension Status: Acute (24) Leukocytosis Status: Acute (25) Leukocytosis Status: Acute (26) Leukocytosis Status: Acute (27) Lung nodule < 6cm on CT Status: Acute (28) Mass of colon Status: Acute (29) Nausea Status: Acute (30) Pleural effusion Status: Acute (31) Pneumonia Status: Acute (32) Pneumonia Status: Acute (33) Pneumonia Status: Acute (34) Prophylactic measure Status: Acute (35) Rheumatoid arthritis Status: Acute (36) Severe dehydration Status: Acute (37) Skin tear of elbow without complication Status: Acute (38) Wedge compression fracture of T9 vertebra Status: Acute (39) COPD (chronic obstructive pulmonary disease) Status: Chronic (40) Hypertension Status: Chronic (41) Renal insufficiency Status: Chronic - Assessment and Plan (Free Text) Plan: Consult pulmonology Consult ID Consult nephrology Consult cardiology pt. denies Blood transfusion despite low hgb CT shows B/l nodules IV antibiotic Follow-up with labs
--- NOTE | 2016-09-13 16:43 | CP.PCM.CON ---
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 The patient is currently confused and I am unable to obtain further history from the patient. A CT chest shows bilateral lung nodules. Per his granddaughter at the bedside, he is looking better and looks more comfortable since being treated with antibiotics. Past medical, surgical, family, social history cannot be obtained from the patient. Allergies: Per documentation, NKA Review of systems cannot be obtained from the patient. Past Patient History - Infectious Disease Hx of Infectious Diseases: None - Past Medical History & Family History Past Medical History?: Yes - Past Social History Smoking Status: Never Smoked - CARDIAC Hx Cardiac Disorders: Yes Hx Atrial Fibrillation: Yes Hx Hypertension: Yes - PULMONARY Hx Respiratory Disorders: Yes Hx Bronchitis: Yes Hx Chronic Obstructive Pulmonary Disease (COPD): Yes Hx Emphysema: Yes - NEUROLOGICAL Hx Neurological Disorder: No - HEENT Hx HEENT Problems: Yes Hx Cataracts: Yes - RENAL Hx Chronic Kidney Disease: Yes - ENDOCRINE/METABOLIC Hx Endocrine Disorders: No - HEMATOLOGICAL/ONCOLOGICAL Hx Blood Disorders: Yes Hx Anemia: Yes Hx Cancer: Yes - INTEGUMENTARY Hx Dermatological Problems: Yes Other/Comment: hx of temporary rashes. 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 - GENITOURINARY/GYNECOLOGICAL Hx Genitourinary Disorders: No - PSYCHIATRIC Hx Substance Use: No - SURGICAL HISTORY Hx Surgeries: Yes Hx Joint Replacement: Yes (left hip replacement) Hx Orthopedic Surgery: Yes (hip surgery) Other/Comment: colon resection 06/2016 - ANESTHESIA Hx Anesthesia: Yes Hx Anesthesia Reactions: No Hx Malignant Hyperthermia: No Has any member of the family had a problem w/ anesthesia?: No Meds Allergies/Adverse Reactions: Allergies Allergy/AdvReac Type Severity Reaction Status Date / Time No Known Allergies Allergy Verified 05/27/16 01:08 - Medications Medications: Current Medications Albuterol/Ipratropium (Duoneb 3 Mg/0.5 Mg (3 Ml) Ud) 3 ml INH RQ6 [facility] Last Admin: 09/13/16 13:00 Dose: 3 ml Famotidine (Pepcid) 20 mg PO DAILY [facility] Last Admin: 09/13/16 09:37 Dose: 20 mg Ferrous Sulfate (Feosol) 325 mg PO DAILY [facility] Last Admin: 09/13/16 09:37 Dose: 325 mg Folic Acid (Folic Acid) 1 mg PO DAILY [facility] Last Admin: 09/13/16 09:37 Dose: 1 mg Guaifenesin (Robitussin) 100 mg PO Q4H PRN PRN Reason: Cough Heparin Sodium (Porcine) (Heparin) 5,000 units SC Q8 [facility] Last Admin: 09/13/16 13:48 Dose: 5,000 units Moxifloxacin HCl (Avelox Iv 400mg/250ml Ns) 400 mg in 250 mls @ 167 mls/hr IVPB Q24H [facility] Last Admin: 09/13/16 09:37 Dose: 167 mls/hr Sodium Chloride (Sodium Chloride 0.9%) 1,000 mls @ 80 mls/hr IV .[id number] [facility] Last Admin: 09/13/16 09:35 Dose: 80 mls/hr Levothyroxine Sodium (Synthroid) 100 mcg PO DAILY@0630 [facility] Last Admin: 09/13/16 06:42 Dose: 100 mcg Megestrol Acetate (Megace) 400 mg PO DAILY [facility] Last Admin: 09/13/16 11:32 Dose: 400 mg Tamsulosin HCl (Flomax) 0.4 mg PO DAILY [facility] Last Admin: 09/13/16 09:37 Dose: 0.4 mg Physical Exam - Head Exam Head Exam: ATRAUMATIC - Eye Exam Eye Exam: Normal appearance - ENT Exam ENT Exam: Mucous Membranes Dry - Respiratory Exam Respiratory Exam: Decreased Breath Sounds - Cardiovascular Exam Cardiovascular Exam: +S1, +S2 - GI/Abdominal Exam GI & Abdominal Exam: Normal Bowel Sounds - Extremities Exam Extremities exam: Positive for: normal inspection - Neurological Exam Neurological exam: Altered - Psychiatric Exam Psychiatric exam: Flat Affect - Skin Skin Exam: Warm Results - Vital Signs Recent Vital Signs: Last Vital Signs Temp 97.5 F L 09/13/16 16:00 Pulse 91 H 09/13/16 16:00 Resp 24 09/13/16 16:00 BP 99/55 L 09/13/16 16:00 Pulse Ox 100 09/13/16 16:00 - Labs Result Diagrams: 09/13/16 06:38 09/13/16 06:38 Labs: Laboratory Results - last 24 hr 09/12/16 09/13/16 09/13/16 22:05 06:38 06:38 WBC 16.4 H RBC 3.06 L Hgb 8.2 L Hct 26.0 L MCV 84.9 MCH 26.8 L MCHC 31.6 L RDW 13.5 Plt Count 299 MPV 7.5 Neut % (Auto) 88.5 H Lymph % (Auto) 4.7 L [place] % (Auto) 4.4 Eos % (Auto) 2.0 Baso % (Auto) 0.4 Neut # 14.5 H Lymph # 0.8 L [place] # 0.7 Eos # 0.3 Baso # 0.1 Neutrophils % (Manual) 82 H Band Neutrophils % 1 Lymphocytes % (Manual) 6 L Monocytes % (Manual) 9 Eosinophils % (Manual) 2 Toxic Granulation Present Platelet Estimate Normal Hypochromasia (manual) Slight Poikilocytosis (manual Slight Anisocytosis (manual) Slight pO2 43 VBG pH 7.32 VBG pCO2 39 L VBG HCO3 19.9 VBG Total CO2 21.3 L VBG O2 Sat (Calc) 83.2 H VBG Base Excess -5.6 L VBG Potassium 4.1 Sodium 139.0 140 Chloride 111.0 H 107 Glucose 82 Lactate 1.1 Potassium 4.3 Carbon Dioxide 18 L Anion Gap 19 BUN 94 H Creatinine 2.0 H Est GFR ( Amer) 39 Est GFR (Non-Af Amer) 32 Random Glucose 104 Lactic Acid Calcium 8.1 L Phosphorus 4.5 Magnesium 2.5 H Total Bilirubin 0.4 AST 11 L ALT 19 L D Alkaline Phosphatase 74 Total Protein 6.1 L Albumin 2.8 L Globulin 3.3 Albumin/Globulin Ratio 0.8 L Procalcitonin TSH 3rd Generation 0.62 Venous Blood Potassium 4.1 Blood Type Antibody Screen 09/13/16 09/13/16 09/13/16 06:52 09:06 09:06 WBC RBC Hgb Hct MCV MCH MCHC RDW Plt Count MPV Neut % (Auto) Lymph % (Auto) [place] % (Auto) Eos % (Auto) Baso % (Auto) Neut # Lymph # [place] # Eos # Baso # Neutrophils % (Manual) Band Neutrophils % Lymphocytes % (Manual) Monocytes % (Manual) Eosinophils % (Manual) Toxic Granulation Platelet Estimate Hypochromasia (manual) Poikilocytosis (manual Anisocytosis (manual) pO2 VBG pH VBG pCO2 VBG HCO3 VBG Total CO2 VBG O2 Sat (Calc) VBG Base Excess VBG Potassium Sodium Chloride Glucose Lactate Potassium Carbon Dioxide Anion Gap BUN Creatinine Est GFR ( Amer) Est GFR (Non-Af Amer) Random Glucose Lactic Acid 1.2 Calcium Phosphorus Magnesium Total Bilirubin AST ALT Alkaline Phosphatase Total Protein Albumin Globulin Albumin/Globulin Ratio Procalcitonin 0.67 H TSH 3rd Generation Venous Blood Potassium Blood Type A POSITIVE Antibody Screen Negative Assessment & Plan (1) NOEMI (acute kidney injury) Assessment and Plan: has 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 Status: Acute
--- NOTE | 2016-09-13 17:02 | CP.PCM.CON ---
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 Patient was living alone at home prior to admission to hospital end of may 2016. [place] patient is wheelchair bound Review of Systems - Review of Systems Systems not reviewed;Unavailable: Altered Mental Status - Constitutional Constitutional: As Per HPI - EENT Eyes: absent: As Per HPI, Blind Spots, Blurred Vision, Change in Vision, Decreased Night Vision, Diplopia, Discharge, Dry Eye, Exophthalmos, Floaters, Irritation, Itchy Eyes, Loss of Peripheral Vision, Pain, Photophobia, Requires Corrective Lenses, Sees Flashes, Spots in Vision, Tunnel Vision, Other Visual Disturbances, Loss of Vision, Other Ears: absent: As Per HPI, Decreased Hearing, Ear Discharge, Ear Pain, Tinnitus, Abnormal Hearing, Disequilibrium, Dizziness, Other Nose/Mouth/Throat: absent: As Per HPI, Epistaxis, Nasal Congestion, Nasal Discharge, Nasal Obstruction, Nasal Trauma, Nose Pain, Post Nasal Drip, Sinus Pain, Sinus Pressure, Bleeding Gums, Change in Voice, Dental Pain, Dry Mouth, Dysphagia, Halitosis, Hoarsness, Lip Swelling, Mouth Lesions, Mouth Pain, Odynophagia, Sore Throat, Throat Swelling, Tongue Swelling, Facial Pain, Neck Pain, Neck Mass, Other - Cardiovascular Cardiovascular: As Per HPI - Respiratory Respiratory: As Per HPI - Gastrointestinal Gastrointestinal: absent: As Per HPI, Abdominal Pain, Belching, Bloating, Change in Bowel Habits, Change in Stool Character, Coffee Ground Emesis, Constipation, Cramping, Diarrhea, Dyspepsia, Dysphagia, Early Satiety, Excessive Flatus, Fecal Incontinence, Heartburn, Hematemesis, Hematochezia, Loose Stools, Melena, Nausea, Odynophagia, Temesmus, Vomiting, Other - Genitourinary Genitourinary: absent: As Per HPI, Change in Urinary Stream, Difficulty Urinating, Dysuria, Flank Pain, Hematuria, Pyuria, Nocturia, Urinary Incontinence, Urinary Frequency, Urinary Hesitance, Urinary Urgency, Voiding Freq/Small Amts, Freq UTI, Hx Renal/Bladder Calculi, Hx /Renal Surgery, Bladder Distension, Other - Musculoskeletal Musculoskeletal: As Per HPI - Integumentary Integumentary: As Per HPI - Neurological Neurological: As Per HPI, Abnormal Gait - Psychiatric Psychiatric: absent: As Per HPI, Abnormal Sleep Pattern, Anhedonia, Anxiety, Auditory Hallucinations, Behavioral Changes, Change in Appetite, Change in Libido, Confusion, Depression, Difficulty Concentrating, Hallucinations, Homicidal Ideation, Hopelessness, Irritability, Memory Loss, Mood Swings, Panic Attacks, Paranoia, Suicidal Ideation, Visual Hallucinations, Tactile Hallucinations, Other - Endocrine Endocrine: absent: As Per HPI, Change in Body Appearance, Change in Libido, Cold Intolorance, Deepening of Voice, Excessive Sweating, Fatigue, Flushing, Heat Intolorance, Increase in Ring/Shoe/Hat Size, Palpitations, Polydipsia, Polyphagia, Polyuria, Other - Hematologic/Lymphatic Hematologic: absent: As Per HPI, Easy Bleeding, Easy Bruising, Lymphadenopathy, Other Past Patient History - Infectious Disease Hx of Infectious Diseases: None - Past Medical History & Family History Past Medical History?: Yes - Past Social History Smoking Status: Never Smoked - CARDIAC Hx Cardiac Disorders: Yes Hx Atrial Fibrillation: Yes Hx Hypertension: Yes - PULMONARY Hx Respiratory Disorders: Yes Hx Bronchitis: Yes Hx Chronic Obstructive Pulmonary Disease (COPD): Yes Hx Emphysema: Yes - NEUROLOGICAL Hx Neurological Disorder: No - HEENT Hx HEENT Problems: Yes Hx Cataracts: Yes - RENAL Hx Chronic Kidney Disease: Yes - ENDOCRINE/METABOLIC Hx Endocrine Disorders: No - HEMATOLOGICAL/ONCOLOGICAL Hx Blood Disorders: Yes Hx Anemia: Yes Hx Cancer: Yes - INTEGUMENTARY Hx Dermatological Problems: Yes Other/Comment: hx of temporary rashes. 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 - GENITOURINARY/GYNECOLOGICAL Hx Genitourinary Disorders: No - PSYCHIATRIC Hx Substance Use: No - SURGICAL HISTORY Hx Surgeries: Yes Hx Joint Replacement: Yes (left hip replacement) Hx Orthopedic Surgery: Yes (hip surgery) Other/Comment: colon resection 06/2016 - ANESTHESIA Hx Anesthesia: Yes Hx Anesthesia Reactions: No Hx Malignant Hyperthermia: No Has any member of the family had a problem w/ anesthesia?: No Meds Allergies/Adverse Reactions: Allergies Allergy/AdvReac Type Severity Reaction Status Date / Time No Known Allergies Allergy Verified 05/27/16 01:08 - Medications Medications: Current Medications Albuterol/Ipratropium (Duoneb 3 Mg/0.5 Mg (3 Ml) Ud) 3 ml INH RQ6 [facility] Last Admin: 09/13/16 13:00 Dose: 3 ml Famotidine (Pepcid) 20 mg PO DAILY [facility] Last Admin: 09/13/16 09:37 Dose: 20 mg Ferrous Sulfate (Feosol) 325 mg PO DAILY [facility] Last Admin: 09/13/16 09:37 Dose: 325 mg Folic Acid (Folic Acid) 1 mg PO DAILY [facility] Last Admin: 09/13/16 09:37 Dose: 1 mg Guaifenesin (Robitussin) 100 mg PO Q4H PRN PRN Reason: Cough Heparin Sodium (Porcine) (Heparin) 5,000 units SC Q8 [facility] Last Admin: 09/13/16 13:48 Dose: 5,000 units Moxifloxacin HCl (Avelox Iv 400mg/250ml Ns) 400 mg in 250 mls @ 167 mls/hr IVPB Q24H [facility] Last Admin: 09/13/16 09:37 Dose: 167 mls/hr Sodium Chloride (Sodium Chloride 0.9%) 1,000 mls @ 80 mls/hr IV .[id number] [facility] Last Admin: 09/13/16 09:35 Dose: 80 mls/hr Levothyroxine Sodium (Synthroid) 100 mcg PO DAILY@0630 [facility] Last Admin: 09/13/16 06:42 Dose: 100 mcg Megestrol Acetate (Megace) 400 mg PO DAILY [facility] Last Admin: 09/13/16 11:32 Dose: 400 mg Tamsulosin HCl (Flomax) 0.4 mg PO DAILY [facility] Last Admin: 09/13/16 09:37 Dose: 0.4 mg Physical Exam - Constitutional Appears: Toxic, Confused, Cachectic, Chronically Ill - Head Exam Head Exam: ATRAUMATIC, NORMAL INSPECTION, NORMOCEPHALIC - Eye Exam Eye Exam: EOMI, PERRL. absent: Scleral icterus - ENT Exam ENT Exam: Mucous Membranes Dry, Normal External Ear Exam - Neck Exam Neck exam: Negative for: Lymphadenopathy - Respiratory Exam Respiratory Exam: Decreased Breath Sounds, Rales, Rhonchi - Cardiovascular Exam Cardiovascular Exam: Tachycardia, REGULAR RHYTHM, +S1, +S2 - GI/Abdominal Exam GI & Abdominal Exam: Diminished Bowel Sounds, Soft. absent: Tenderness - Rectal Exam Rectal Exam: Deferred - Exam Exam: NORMAL INSPECTION - Extremities Exam Extremities exam: Positive for: pedal pulses present. Negative for: calf tenderness, pedal edema, tenderness - Back Exam Back exam: absent: CVA tenderness (L), CVA tenderness (R), paraspinal tenderness - Neurological Exam Neurological exam: Abnormal Gait, Alert, Altered, CN II-XII Intact, Motor Sensory Deficit - Psychiatric Exam Psychiatric exam: Depressed - Skin Skin Exam: Dry, Intact Results - Vital Signs Recent Vital Signs: Last Vital Signs Temp 97.5 F L 09/13/16 16:00 Pulse 91 H 09/13/16 16:00 Resp 24 09/13/16 16:00 BP 99/55 L 09/13/16 16:00 Pulse Ox 100 09/13/16 16:00 - Labs Result Diagrams: 09/13/16 06:38 09/13/16 06:38 Labs: Laboratory Results - last 24 hr 09/12/16 09/13/16 09/13/16 22:05 06:38 06:38 WBC 16.4 H RBC 3.06 L Hgb 8.2 L Hct 26.0 L MCV 84.9 MCH 26.8 L MCHC 31.6 L RDW 13.5 Plt Count 299 MPV 7.5 Neut % (Auto) 88.5 H Lymph % (Auto) 4.7 L [place] % (Auto) 4.4 Eos % (Auto) 2.0 Baso % (Auto) 0.4 Neut # 14.5 H Lymph # 0.8 L [place] # 0.7 Eos # 0.3 Baso # 0.1 Neutrophils % (Manual) 82 H Band Neutrophils % 1 Lymphocytes % (Manual) 6 L Monocytes % (Manual) 9 Eosinophils % (Manual) 2 Toxic Granulation Present Platelet Estimate Normal Hypochromasia (manual) Slight Poikilocytosis (manual Slight Anisocytosis (manual) Slight pO2 43 VBG pH 7.32 VBG pCO2 39 L VBG HCO3 19.9 VBG Total CO2 21.3 L VBG O2 Sat (Calc) 83.2 H VBG Base Excess -5.6 L VBG Potassium 4.1 Sodium 139.0 140 Chloride 111.0 H 107 Glucose 82 Lactate 1.1 Potassium 4.3 Carbon Dioxide 18 L Anion Gap 19 BUN 94 H Creatinine 2.0 H Est GFR ( Amer) 39 Est GFR (Non-Af Amer) 32 Random Glucose 104 Lactic Acid Calcium 8.1 L Phosphorus 4.5 Magnesium 2.5 H Total Bilirubin 0.4 AST 11 L ALT 19 L D Alkaline Phosphatase 74 Total Protein 6.1 L Albumin 2.8 L Globulin 3.3 Albumin/Globulin Ratio 0.8 L Procalcitonin TSH 3rd Generation 0.62 Venous Blood Potassium 4.1 Blood Type Antibody Screen 09/13/16 09/13/16 09/13/16 06:52 09:06 09:06 WBC RBC Hgb Hct MCV MCH MCHC RDW Plt Count MPV Neut % (Auto) Lymph % (Auto) [place] % (Auto) Eos % (Auto) Baso % (Auto) Neut # Lymph # [place] # Eos # Baso # Neutrophils % (Manual) Band Neutrophils % Lymphocytes % (Manual) Monocytes % (Manual) Eosinophils % (Manual) Toxic Granulation Platelet Estimate Hypochromasia (manual) Poikilocytosis (manual Anisocytosis (manual) pO2 VBG pH VBG pCO2 VBG HCO3 VBG Total CO2 VBG O2 Sat (Calc) VBG Base Excess VBG Potassium Sodium Chloride Glucose Lactate Potassium Carbon Dioxide Anion Gap BUN Creatinine Est GFR ( Amer) Est GFR (Non-Af Amer) Random Glucose Lactic Acid 1.2 Calcium Phosphorus Magnesium Total Bilirubin AST ALT Alkaline Phosphatase Total Protein Albumin Globulin Albumin/Globulin Ratio Procalcitonin 0.67 H TSH 3rd Generation Venous Blood Potassium Blood Type A POSITIVE Antibody Screen Negative Assessment & Plan (1) NOEMI (acute kidney injury) Status: Acute (2) Hypotension Status: Acute (3) Pneumonia Status: Acute (4) Severe dehydration Status: Acute (5) Abdominal pain Status: Acute (6) Rheumatoid arthritis Status: Acute (7) COPD (chronic obstructive pulmonary disease) Status: Chronic (8) Hypertension Status: Chronic (9) Renal insufficiency Status: Chronic - Assessment and Plan (Free Text) Assessment: r/o sepsis pneumonia dehydration cont IV antibiotics cultures sent
[2016-09-13] MEDS: Cefepime IV 1 gm in Dextrose 1 GM/50 ML BAG IVPB SCH (18:08)
--- NOTE | 2016-09-13 20:55 | CP.PCM.PN ---
Subjective - Date & Time of Evaluation Date of Evaluation: 09/13/16 Time of Evaluation: 14:00 - Subjective Subjective: clinically same Objective - Vital Signs/Intake and Output Vital Signs (last 24 hours): Temp Pulse Resp BP Pulse Ox 97.5 F L 82 20 91/38 L 100 09/13/16 16:00 09/13/16 18:59 09/13/16 18:59 09/13/16 18:59 09/13/16 18:59 Intake and Output: 09/13/16 09/14/16 18:59 06:59 Intake Total 2100 80 Output Total 850 Balance 1250 80 - Medications Medications: Current Medications Albuterol/Ipratropium (Duoneb 3 Mg/0.5 Mg (3 Ml) Ud) 3 ml INH RQ6 [facility] Last Admin: 09/13/16 19:17 Dose: 3 ml Famotidine (Pepcid) 20 mg PO DAILY [facility] Last Admin: 09/13/16 09:37 Dose: 20 mg Ferrous Sulfate (Feosol) 325 mg PO DAILY [facility] Last Admin: 09/13/16 09:37 Dose: 325 mg Folic Acid (Folic Acid) 1 mg PO DAILY [facility] Last Admin: 09/13/16 09:37 Dose: 1 mg Guaifenesin (Robitussin) 100 mg PO Q4H PRN PRN Reason: Cough Heparin Sodium (Porcine) (Heparin) 5,000 units SC Q8 [facility] Last Admin: 09/13/16 13:48 Dose: 5,000 units Moxifloxacin HCl (Avelox Iv 400mg/250ml Ns) 400 mg in 250 mls @ 167 mls/hr IVPB Q24H [facility] Last Admin: 09/13/16 09:37 Dose: 167 mls/hr Sodium Chloride (Sodium Chloride 0.9%) 1,000 mls @ 80 mls/hr IV .[id number] [facility] Last Admin: 09/13/16 09:35 Dose: 80 mls/hr Cefepime HCl (Maxipime Iv 1 Gm Premix) 1 gm in 50 mls @ 100 mls/hr IVPB Q12H [facility] Last Admin: 09/13/16 18:08 Dose: 100 mls/hr Levothyroxine Sodium (Synthroid) 100 mcg PO DAILY@0630 [facility] Last Admin: 09/13/16 06:42 Dose: 100 mcg Megestrol Acetate (Megace) 400 mg PO DAILY [facility] Last Admin: 09/13/16 11:32 Dose: 400 mg Tamsulosin HCl (Flomax) 0.4 mg PO DAILY [facility] Last Admin: 09/13/16 09:37 Dose: 0.4 mg - Labs Labs: 09/13/16 06:38 09/13/16 06:38 PT 13.5 SECONDS (9.7-12.2) H 09/12/16 19:06 INR 1.2 09/12/16 19:06 APTT 28 SECONDS (21-34) 09/12/16 19:06 - Constitutional Appears: Well - Head Exam Head Exam: ATRAUMATIC, NORMAL INSPECTION, NORMOCEPHALIC - Eye Exam Eye Exam: EOMI, Normal appearance, PERRL Pupil Exam: NORMAL ACCOMODATION, PERRL - ENT Exam ENT Exam: Mucous Membranes Moist, Normal Exam - Neck Exam Neck Exam: Full ROM, Normal Inspection. absent: Lymphadenopathy - Respiratory Exam Respiratory Exam: Decreased Breath Sounds - Cardiovascular Exam Cardiovascular Exam: REGULAR RHYTHM, +S1, +S2 - GI/Abdominal Exam GI & Abdominal Exam: Soft, Diminished Bowel Sounds - Rectal Exam Rectal Exam: Deferred Assessment and Plan - Assessment and Plan (Free Text) Plan: Consulting telegraph office manager consulting ID Appraiser Consulting parts department manager Consult hem/onc CT shows B/l nodules s/p lung biopsy shows organizing pneumonia and suspicious for malignancy IV antibiotic Follow-up with labs
[2016-09-14] MEDS: Albuterol-Ipratrop 3 mg / 0.5 (3 ml) UD INH SCH ×4 (01:14→19:17)
[2016-09-14] MEDS: Cefepime IV 1 gm in Dextrose 1 GM/50 ML BAG IVPB SCH ×2 (06:30→18:15)
[2016-09-14] MEDS: Levothyroxine 100 MCG TAB PO SCH (06:41)
--- NOTE | 2016-09-14 06:45 | CP.CCUPN ---
<Ney Golden - Last Filed: 09/14/16 11:50> CCU Subjective - Physician Review Subjective (Free Text): 09/14/16 06:44 Patient was seen and examined at bedside. Patient refusing blood transfusion this AM, despite low Hgb (7.3). Pt not actively bleeding. Repeat CBC ordered for this afternoon. Erika, Palliative care nurse, will follow up with daughter about pt care goals. Pt denies pain or discomfort this AM. Critical Care Time Spent (in minutes): 40 CCU Objective - Vital Signs / Intake & Output Vital Signs (Last 4 hours): Vital Signs Temp Pulse Resp BP Pulse Ox 09/14/16 04:10 92 H 31 H 100 09/14/16 04:00 98.1 F 80 18 100 09/14/16 03:59 78 19 92/46 L 100 09/14/16 03:50 89 26 H 100 09/14/16 03:40 96 H 23 100 09/14/16 03:30 88 26 H 100 09/14/16 03:20 69 17 100 09/14/16 03:10 85 21 100 09/14/16 03:00 93 H 25 H 100 09/14/16 02:59 91 H 26 H 112/56 L 100 09/14/16 02:50 75 19 100 Intake and Output (Last 8hrs): Intake & Output 09/13/16 09/13/16 09/14/16 14:59 22:59 06:59 Intake Total 1530 990 480 Output Total 350 700 350 Balance 1180 290 130 Intake: Intake, IV Amount 950 690 480 Left Forearm 950 690 480 Oral 580 300 0 Output: Urine 350 700 350 Urine, Voided 350 700 350 Other: # Voids Urine, Voided 1 1 1 # Bowel Movements 0 0 0 - Physical Exam Head: Positive for: Atraumatic, Normocephalic Pupils: Positive for: PERRL Extroacular Muscles: Positive for: EOMI Mouth: Positive for: Dry Respiratory/Chest: Positive for: Decreased Breath Sounds, Rhonchi Cardiovascular: Positive for: Tachycardic Abdomen: Positive for: Normal Bowel Sounds Upper Extremity: Positive for: Normal Inspection, NORMAL PULSES. Negative for: Cyanosis, Edema Lower Extremity: Positive for: Normal Inspection, Edema, NORMAL PULSES. Negative for: CALF TENDERNESS Neurological: Positive for: GCS=15, CN II-XII Intact Skin: Positive for: Warm, Dry, Normal Color Psychiatric: Positive for: Alert, Oriented x 3 - Medications Active Medications: Active Medications Generic Name Dose Route Start Last Admin Trade Name Freq PRN Reason Stop Dose Admin Albuterol/Ipratropium 3 ml 09/13/16 02:00 09/14/16 01:14 Duoneb 3 Mg/0.5 Mg (3 Ml) Ud INH Not Given RQ6 ANDREA Famotidine 20 mg 09/13/16 10:00 09/13/16 09:37 Pepcid PO 20 mg DAILY ANDREA Administration Ferrous Sulfate 325 mg 09/13/16 10:00 09/13/16 09:37 Feosol PO 325 mg DAILY ANDREA Administration Folic Acid 1 mg 09/13/16 10:00 09/13/16 09:37 Folic Acid PO 1 mg DAILY ANDREA Administration Guaifenesin 100 mg 09/12/16 22:31 Robitussin PO Q4H PRN Cough Heparin Sodium (Porcine) 5,000 units 09/13/16 06:00 09/14/16 06:41 Heparin SC 5,000 units Q8 ANDREA Administration Moxifloxacin HCl 400 mg in 250 mls @ 167 mls/hr 09/13/16 10:00 09/13/16 09:37 Avelox Iv 400mg/250ml Ns IVPB 167 mls/hr Q24H ANDREA Administration Sodium Chloride 1,000 mls @ 80 mls/hr 09/13/16 08:15 09/13/16 21:45 Sodium Chloride 0.9% IV 80 mls/hr .[id number] ANDREA Administration Cefepime HCl 1 gm in 50 mls @ 100 mls/hr 09/13/16 19:00 09/14/16 06:30 Maxipime Iv 1 Gm Premix IVPB 100 mls/hr Q12H ANDREA Administration Levothyroxine Sodium 100 mcg 09/13/16 06:30 09/14/16 06:41 Synthroid PO 100 mcg DAILY@0630 ANDREA Administration Megestrol Acetate 400 mg 09/13/16 10:45 09/13/16 11:32 Megace PO 400 mg DAILY ANDREA Administration Tamsulosin HCl 0.4 mg 09/13/16 10:00 09/13/16 09:37 Flomax PO 0.4 mg DAILY ANDREA Administration - Patient Studies Lab Studies: Microbiology Studies 09/12/16 22:15 Blood Culture - Preliminary Blood NO GROWTH AFTER 24 HOURS 09/12/16 22:15 Blood Culture - Preliminary Blood NO GROWTH AFTER 24 HOURS Lab Studies 09/13/16 09/13/16 09/13/16 Range/Units 17:38 17:38 09:06 WBC (4.8-10.8) K/uL RBC (4.40-5.90) Mil/uL Hgb (12.0-18.0) g/dL Hct (35.0-51.0) % MCV (80.0-94.0) fL MCH (27.0-31.0) pg MCHC (33.0-37.0) g/dL RDW (11.5-14.5) % Plt Count (130-400) K/uL MPV (7.2-11.7) fL Neut % (Auto) (50.0-75.0) % Lymph % (Auto) (20.0-40.0) % Wilson % (Auto) (0.0-10.0) % Eos % (Auto) (0.0-4.0) % Baso % (Auto) (0.0-2.0) % Neut # (1.8-7.0) K/uL Lymph # (1.0-4.3) K/uL Wilson # (0.0-0.8) K/uL Eos # (0.0-0.7) K/uL Baso # (0.0-0.2) K/uL Neutrophils % (Manual) (50-75) % Band Neutrophils % (0-2) % Lymphocytes % (Manual) (20-40) % Monocytes % (Manual) (0-10) % Eosinophils % (Manual) (0-4) % Toxic Granulation Platelet Estimate (NORMAL) Hypochromasia (manual) Poikilocytosis (manual Anisocytosis (manual) Sodium (132-148) mmol/L Potassium (3.6-5.2) mmol/L Chloride (98-107) mmol/L Carbon Dioxide (22-30) mmol/L Anion Gap (10-20) BUN (9-20) mg/dL Creatinine (0.8-1.5) MG/DL Est GFR ( Amer) Est GFR (Non-Af Amer) Random Glucose (75-110) mg/dL Lactic Acid (0.7-2.1) mmol/L Calcium (8.6-10.4) mg/dl Phosphorus (2.5-4.5) mg/dL Magnesium (1.6-2.3) mg/dL Total Bilirubin (0.2-1.3) mg/dL AST (17-59) U/L ALT (21-72) U/L Alkaline Phosphatase (38-126) U/L Total Protein (6.3-8.3) g/dL Albumin (3.5-5.0) g/dL Globulin (2.2-3.9) gm/dL Albumin/Globulin Ratio (1.0-2.1) Carcinoembryonic Ag 8.2 H (0-3.0) ng/mL Procalcitonin 0.67 H (0.19-0.49) NG/ML TSH 3rd Generation (0.46-4.68) mIU/L Ur L.pneumophila Ag Negative (NEGATIVE) Blood Type Antibody Screen 09/13/16 09/13/16 09/13/16 Range/Units 09:06 06:52 06:38 WBC (4.8-10.8) K/uL RBC (4.40-5.90) Mil/uL Hgb (12.0-18.0) g/dL Hct (35.0-51.0) % MCV (80.0-94.0) fL MCH (27.0-31.0) pg MCHC (33.0-37.0) g/dL RDW (11.5-14.5) % Plt Count (130-400) K/uL MPV (7.2-11.7) fL Neut % (Auto) (50.0-75.0) % Lymph % (Auto) (20.0-40.0) % Wilson % (Auto) (0.0-10.0) % Eos % (Auto) (0.0-4.0) % Baso % (Auto) (0.0-2.0) % Neut # (1.8-7.0) K/uL Lymph # (1.0-4.3) K/uL Wilson # (0.0-0.8) K/uL Eos # (0.0-0.7) K/uL Baso # (0.0-0.2) K/uL Neutrophils % (Manual) (50-75) % Band Neutrophils % (0-2) % Lymphocytes % (Manual) (20-40) % Monocytes % (Manual) (0-10) % Eosinophils % (Manual) (0-4) % Toxic Granulation Platelet Estimate (NORMAL) Hypochromasia (manual) Poikilocytosis (manual Anisocytosis (manual) Sodium 140 (132-148) mmol/L Potassium 4.3 (3.6-5.2) mmol/L Chloride 107 (98-107) mmol/L Carbon Dioxide 18 L (22-30) mmol/L Anion Gap 19 (10-20) BUN 94 H (9-20) mg/dL Creatinine 2.0 H (0.8-1.5) MG/DL Est GFR ( Amer) 39 Est GFR (Non-Af Amer) 32 Random Glucose 104 (75-110) mg/dL Lactic Acid 1.2 (0.7-2.1) mmol/L Calcium 8.1 L (8.6-10.4) mg/dl Phosphorus 4.5 (2.5-4.5) mg/dL Magnesium 2.5 H (1.6-2.3) mg/dL Total Bilirubin 0.4 (0.2-1.3) mg/dL AST 11 L (17-59) U/L ALT 19 L D (21-72) U/L Alkaline Phosphatase 74 (38-126) U/L Total Protein 6.1 L (6.3-8.3) g/dL Albumin 2.8 L (3.5-5.0) g/dL Globulin 3.3 (2.2-3.9) gm/dL Albumin/Globulin Ratio 0.8 L (1.0-2.1) Carcinoembryonic Ag (0-3.0) ng/mL Procalcitonin (0.19-0.49) NG/ML TSH 3rd Generation 0.62 (0.46-4.68) mIU/L Ur L.pneumophila Ag (NEGATIVE) Blood Type A POSITIVE Antibody Screen Negative 09/13/16 Range/Units 06:38 WBC 16.4 H (4.8-10.8) K/uL RBC 3.06 L (4.40-5.90) Mil/uL Hgb 8.2 L (12.0-18.0) g/dL Hct 26.0 L (35.0-51.0) % MCV 84.9 (80.0-94.0) fL MCH 26.8 L (27.0-31.0) pg MCHC 31.6 L (33.0-37.0) g/dL RDW 13.5 (11.5-14.5) % Plt Count 299 (130-400) K/uL MPV 7.5 (7.2-11.7) fL Neut % (Auto) 88.5 H (50.0-75.0) % Lymph % (Auto) 4.7 L (20.0-40.0) % Wilson % (Auto) 4.4 (0.0-10.0) % Eos % (Auto) 2.0 (0.0-4.0) % Baso % (Auto) 0.4 (0.0-2.0) % Neut # 14.5 H (1.8-7.0) K/uL Lymph # 0.8 L (1.0-4.3) K/uL Wilson # 0.7 (0.0-0.8) K/uL Eos # 0.3 (0.0-0.7) K/uL Baso # 0.1 (0.0-0.2) K/uL Neutrophils % (Manual) 82 H (50-75) % Band Neutrophils % 1 (0-2) % Lymphocytes % (Manual) 6 L (20-40) % Monocytes % (Manual) 9 (0-10) % Eosinophils % (Manual) 2 (0-4) % Toxic Granulation Present Platelet Estimate Normal (NORMAL) Hypochromasia (manual) Slight Poikilocytosis (manual Slight Anisocytosis (manual) Slight Sodium (132-148) mmol/L Potassium (3.6-5.2) mmol/L Chloride (98-107) mmol/L Carbon Dioxide (22-30) mmol/L Anion Gap (10-20) BUN (9-20) mg/dL Creatinine (0.8-1.5) MG/DL Est GFR ( Amer) Est GFR (Non-Af Amer) Random Glucose (75-110) mg/dL Lactic Acid (0.7-2.1) mmol/L Calcium (8.6-10.4) mg/dl Phosphorus (2.5-4.5) mg/dL Magnesium (1.6-2.3) mg/dL Total Bilirubin (0.2-1.3) mg/dL AST (17-59) U/L ALT (21-72) U/L Alkaline Phosphatase (38-126) U/L Total Protein (6.3-8.3) g/dL Albumin (3.5-5.0) g/dL Globulin (2.2-3.9) gm/dL Albumin/Globulin Ratio (1.0-2.1) Carcinoembryonic Ag (0-3.0) ng/mL Procalcitonin (0.19-0.49) NG/ML TSH 3rd Generation (0.46-4.68) mIU/L Ur L.pneumophila Ag (NEGATIVE) Blood Type Antibody Screen Laboratory Results - last 24 hr 09/13/16 09/13/16 09/13/16 06:38 06:38 06:52 WBC 16.4 H RBC 3.06 L Hgb 8.2 L Hct 26.0 L MCV 84.9 MCH 26.8 L MCHC 31.6 L RDW 13.5 Plt Count 299 MPV 7.5 Neut % (Auto) 88.5 H Lymph % (Auto) 4.7 L Wilson % (Auto) 4.4 Eos % (Auto) 2.0 Baso % (Auto) 0.4 Neut # 14.5 H Lymph # 0.8 L Wilson # 0.7 Eos # 0.3 Baso # 0.1 Neutrophils % (Manual) 82 H Band Neutrophils % 1 Lymphocytes % (Manual) 6 L Monocytes % (Manual) 9 Eosinophils % (Manual) 2 Toxic Granulation Present Platelet Estimate Normal Hypochromasia (manual) Slight Poikilocytosis (manual Slight Anisocytosis (manual) Slight Sodium 140 Potassium 4.3 Chloride 107 Carbon Dioxide 18 L Anion Gap 19 BUN 94 H Creatinine 2.0 H Est GFR ( Amer) 39 Est GFR (Non-Af Amer) 32 Random Glucose 104 Lactic Acid 1.2 Calcium 8.1 L Phosphorus 4.5 Magnesium 2.5 H Total Bilirubin 0.4 AST 11 L ALT 19 L D Alkaline Phosphatase 74 Total Protein 6.1 L Albumin 2.8 L Globulin 3.3 Albumin/Globulin Ratio 0.8 L Carcinoembryonic Ag Procalcitonin TSH 3rd Generation 0.62 Ur L.pneumophila Ag Blood Type Antibody Screen 09/13/16 09/13/16 09/13/16 09:06 09:06 17:38 WBC RBC Hgb Hct MCV MCH MCHC RDW Plt Count MPV Neut % (Auto) Lymph % (Auto) Wilson % (Auto) Eos % (Auto) Baso % (Auto) Neut # Lymph # Wilson # Eos # Baso # Neutrophils % (Manual) Band Neutrophils % Lymphocytes % (Manual) Monocytes % (Manual) Eosinophils % (Manual) Toxic Granulation Platelet Estimate Hypochromasia (manual) Poikilocytosis (manual Anisocytosis (manual) Sodium Potassium Chloride Carbon Dioxide Anion Gap BUN Creatinine Est GFR ( Amer) Est GFR (Non-Af Amer) Random Glucose Lactic Acid Calcium Phosphorus Magnesium Total Bilirubin AST ALT Alkaline Phosphatase Total Protein Albumin Globulin Albumin/Globulin Ratio Carcinoembryonic Ag 8.2 H Procalcitonin 0.67 H TSH 3rd Generation Ur L.pneumophila Ag Blood Type A POSITIVE Antibody Screen Negative 09/13/16 17:38 WBC RBC Hgb Hct MCV MCH MCHC RDW Plt Count MPV Neut % (Auto) Lymph % (Auto) Wilson % (Auto) Eos % (Auto) Baso % (Auto) Neut # Lymph # Wilson # Eos # Baso # Neutrophils % (Manual) Band Neutrophils % Lymphocytes % (Manual) Monocytes % (Manual) Eosinophils % (Manual) Toxic Granulation Platelet Estimate Hypochromasia (manual) Poikilocytosis (manual Anisocytosis (manual) Sodium Potassium Chloride Carbon Dioxide Anion Gap BUN Creatinine Est GFR ( Amer) Est GFR (Non-Af Amer) Random Glucose Lactic Acid Calcium Phosphorus Magnesium Total Bilirubin AST ALT Alkaline Phosphatase Total Protein Albumin Globulin Albumin/Globulin Ratio Carcinoembryonic Ag Procalcitonin TSH 3rd Generation Ur L.pneumophila Ag Negative Blood Type Antibody Screen Review of Systems - Constitutional Constitutional: absent: Fever, Chills - Cardiovascular Cardiovascular: absent: Chest Pain - Respiratory Respiratory: absent: Hemoptysis - Gastrointestinal Gastrointestinal: absent: Abdominal Pain - Musculoskeletal Musculoskeletal: absent: Back Pain - Neurological Neurological: absent: Tingling, Weakness Critical Care Progress Note - Nutrition Nutrition: Nutrition Category Date Time Status Heart Healthy Diet [DIET] Diets 09/13/16 Breakfast Active Assessment/Plan - Assessment and Plan (Free Text) Assessment: 86 M with PMHx of COPD, anemia, GI bleed, CHF (last ECHO done at 06/2015 EF 65 %), atrial fibrillation, hypothyroidism, history of colon carcinoma, and 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 Patient was admitted in June for CHF with pneumonia, where he had new onset A-Fib. Plan: Pneumonia * Afebrile, tachycardic, Leukocytosis, no bandemia, lactate level 1.6, 1.1 * CXR: increased lung markings, LLL infiltrate ? * Received cefepime and vanco in the ED, currently on Avelox. * On previous admission, chest ct on 06/22/16 showed: showed moderate bilateral pleural effusion increased from 05/08/2016. Multiple bilateral pulmonary nodules with cavitation in 2 right sided nodules, infectious vs neoplasm vs septic emboli. Several nonspecific ground-glass density (see full report). He underwent a lung biopsy ->>> PNA * ID consulted- Dr. Lorenzana- help appreciated * CT CHEST (09/13/16): 12 mm right lung apex cavitary nodule re-identified, grossly stable. Irregular spiculated 10 mm nodule noted within the inferior aspect of the right upper lobe. 3.6 x 2.6 cm lingular masslike consolidation. Multiple additional scattered nodular and ground-glass patchy densities are evident. Bilateral [id number]-right compressive consolidations and small left pleural effusion. Recommend clinical correlation and continued follow -up. * procalcitonin: 0.67, elevated Acute Renal Insufficiency * Severely dehydrated * Baseline creatine is 1.0-1.4. On admission BUN/CRE 116/2.6, now 94/2.0 * Slow IVF hydration @ 80cc/hr (hx of CHF) Hx of Anemia, GI bleed * Basline hemoglobin is 9-10. 9.7 on admission, currently 7.9 * Type and screen, crossmatch -2 units held * Continue Feosol * F/U stool occult * Monitor H/H Hx of A-Fib * Patient takes Cardizem 30mg PO Q8H and Midodrine 5mg PO BID- held due to hypotension Hypothyroidism * Resume home med: Synthroid 100mcg PO daily * TSH WNL Hx of CHF * Patient takes lasix 80mg PO daily - held due to hypotension * F/U ECHO Hx of COPD * Duonebs Carcinoma colon/Neuroendocrine tumor appendix s/p resection * Ex-Lap with resection of sigmoid mass and side to side anastomosis with Dr Agrawal. 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 * F/U by oncology BPH * Continue Flomax Prophylactic Measure * GI PPX: Pepcid 20mg PO daily * DVT PPX: Heparin 5000 SC Q8H * Heart Healthy Diet DW Dr. Honeycutt, Ney Golden DO, PGY-1 <Yinka King - Last Filed: 09/14/16 14:07> CCU Objective - Vital Signs / Intake & Output Vital Signs (Last 4 hours): Vital Signs Temp Pulse Resp BP Pulse Ox 09/14/16 13:01 85 28 H 112/37 L 100 09/14/16 12:00 98.5 F 100 09/14/16 11:59 79 21 102/47 L 98 09/14/16 10:59 92 H 24 104/53 L 100 Intake and Output (Last 8hrs): Intake & Output 09/13/16 09/14/16 09/14/16 22:59 06:59 14:59 Intake Total 653 326 0470 Output Total 700 550 100 Balance 290 130 900 Intake: Intake, IV Amount 690 640 730 Left Forearm 690 640 730 Oral 300 40 270 Output: Urine 700 550 100 Urine, Voided 700 550 100 Other: # Voids Urine, Voided 1 1 0 # Bowel Movements 0 0 0 - Medications Active Medications: Active Medications Generic Name Dose Route Start Last Admin Trade Name Freq PRN Reason Stop Dose Admin Albuterol/Ipratropium 3 ml 09/13/16 02:00 09/14/16 13:09 Duoneb 3 Mg/0.5 Mg (3 Ml) Ud INH 3 ml RQ6 ANDREA Administration Famotidine 20 mg 09/13/16 10:00 09/14/16 09:28 Pepcid PO 20 mg DAILY ANDREA Administration Ferrous Sulfate 325 mg 09/13/16 10:00 09/14/16 09:28 Feosol PO 325 mg DAILY ANDREA Administration Folic Acid 1 mg 09/13/16 10:00 09/14/16 09:28 Folic Acid PO 1 mg DAILY ANDREA Administration Guaifenesin 100 mg 09/12/16 22:31 Robitussin PO Q4H PRN Cough Heparin Sodium (Porcine) 5,000 units 09/13/16 06:00 09/14/16 13:38 Heparin SC 5,000 units Q8 ANDREA Administration Moxifloxacin HCl 400 mg in 250 mls @ 167 mls/hr 09/13/16 10:00 09/14/16 09:25 Avelox Iv 400mg/250ml Ns IVPB 167 mls/hr Q24H ANDREA Administration Sodium Chloride 1,000 mls @ 80 mls/hr 09/13/16 08:15 09/14/16 09:29 Sodium Chloride 0.9% IV 80 mls/hr .[id number] ANDREA Administration Cefepime HCl 1 gm in 50 mls @ 100 mls/hr 09/13/16 19:00 09/14/16 06:30 Maxipime Iv 1 Gm Premix IVPB 100 mls/hr Q12H ANDREA Administration Levothyroxine Sodium 100 mcg 09/13/16 06:30 09/14/16 06:41 Synthroid PO 100 mcg DAILY@0630 ANDREA Administration Megestrol Acetate 400 mg 09/13/16 10:45 09/14/16 09:28 Megace PO 400 mg DAILY ANDREA Administration Tamsulosin HCl 0.4 mg 09/13/16 10:00 09/14/16 09:28 Flomax PO 0.4 mg DAILY ANDREA Administration - Patient Studies Lab Studies: Microbiology Studies 09/13/16 07:00 MRSA Culture (Admit) - Final Naris MRSA NOT DETECTED 09/12/16 22:15 Blood Culture - Preliminary Blood NO GROWTH AFTER 24 HOURS 09/12/16 22:15 Blood Culture - Preliminary Blood NO GROWTH AFTER 24 HOURS Lab Studies 09/14/16 09/14/16 09/14/16 Range/Units 12:54 07:19 07:19 WBC 10.2 9.8 (4.8-10.8) K/uL RBC 2.73 L 2.75 L (4.40-5.90) Mil/uL Hgb 7.3 L 7.3 L (12.0-18.0) g/dL Hct 23.5 L 23.5 L (35.0-51.0) % MCV 86.0 85.7 (80.0-94.0) fL MCH 26.9 L 26.6 L (27.0-31.0) pg MCHC 31.3 L 31.0 L (33.0-37.0) g/dL RDW 13.6 13.6 (11.5-14.5) % Plt Count 266 284 (130-400) K/uL MPV 7.1 L 7.3 (7.2-11.7) fL Neut % (Auto) 82.7 H (50.0-75.0) % Lymph % (Auto) 7.7 L (20.0-40.0) % Wilson % (Auto) 4.6 (0.0-10.0) % Eos % (Auto) 3.9 (0.0-4.0) % Baso % (Auto) 1.1 (0.0-2.0) % Neut # 8.1 H (1.8-7.0) K/uL Lymph # 0.8 L (1.0-4.3) K/uL Wilson # 0.5 (0.0-0.8) K/uL Eos # 0.4 (0.0-0.7) K/uL Baso # 0.1 (0.0-0.2) K/uL Neutrophils % (Manual) 81 H (50-75) % Band Neutrophils % 1 (0-2) % Lymphocytes % (Manual) 8 L (20-40) % Monocytes % (Manual) 4 (0-10) % Eosinophils % (Manual) 5 H (0-4) % Basophils % (Manual) 1 (0-2) % Platelet Estimate Normal (NORMAL) Hypochromasia (manual) Slight Poikilocytosis (manual Slight Anisocytosis (manual) Slight Sodium 140 (132-148) mmol/L Potassium 4.9 (3.6-5.2) mmol/L Chloride 112 H (98-107) mmol/L Carbon Dioxide 21 L (22-30) mmol/L Anion Gap 12 (10-20) BUN 68 H (9-20) mg/dL Creatinine 1.6 H (0.8-1.5) MG/DL Est GFR ( Amer) 50 Est GFR (Non-Af Amer) 41 Random Glucose 89 (75-110) mg/dL Calcium 7.7 L (8.6-10.4) mg/dl Phosphorus 3.7 (2.5-4.5) mg/dL Magnesium 2.1 (1.6-2.3) mg/dL Total Bilirubin 0.4 (0.2-1.3) mg/dL AST 13 L (17-59) U/L ALT 21 (21-72) U/L Alkaline Phosphatase 73 (38-126) U/L Total Protein 5.6 L (6.3-8.3) g/dL Albumin 2.4 L (3.5-5.0) g/dL Globulin 3.2 (2.2-3.9) gm/dL Albumin/Globulin Ratio 0.8 L (1.0-2.1) Carcinoembryonic Ag (0-3.0) ng/mL Ur L.pneumophila Ag (NEGATIVE) 09/13/16 09/13/16 09/13/16 Range/Units 18:00 17:38 17:38 WBC (4.8-10.8) K/uL RBC (4.40-5.90) Mil/uL Hgb (12.0-18.0) g/dL Hct (35.0-51.0) % MCV (80.0-94.0) fL MCH (27.0-31.0) pg MCHC (33.0-37.0) g/dL RDW (11.5-14.5) % Plt Count (130-400) K/uL MPV (7.2-11.7) fL Neut % (Auto) (50.0-75.0) % Lymph % (Auto) (20.0-40.0) % Wilson % (Auto) (0.0-10.0) % Eos % (Auto) (0.0-4.0) % Baso % (Auto) (0.0-2.0) % Neut # (1.8-7.0) K/uL Lymph # (1.0-4.3) K/uL Wilson # (0.0-0.8) K/uL Eos # (0.0-0.7) K/uL Baso # (0.0-0.2) K/uL Neutrophils % (Manual) (50-75) % Band Neutrophils % (0-2) % Lymphocytes % (Manual) (20-40) % Monocytes % (Manual) (0-10) % Eosinophils % (Manual) (0-4) % Basophils % (Manual) (0-2) % Platelet Estimate (NORMAL) Hypochromasia (manual) Poikilocytosis (manual Anisocytosis (manual) Sodium (132-148) mmol/L Potassium (3.6-5.2) mmol/L Chloride (98-107) mmol/L Carbon Dioxide (22-30) mmol/L Anion Gap (10-20) BUN (9-20) mg/dL Creatinine (0.8-1.5) MG/DL Est GFR ( Amer) Est GFR (Non-Af Amer) Random Glucose (75-110) mg/dL Calcium (8.6-10.4) mg/dl Phosphorus (2.5-4.5) mg/dL Magnesium (1.6-2.3) mg/dL Total Bilirubin (0.2-1.3) mg/dL AST (17-59) U/L ALT (21-72) U/L Alkaline Phosphatase (38-126) U/L Total Protein (6.3-8.3) g/dL Albumin (3.5-5.0) g/dL Globulin (2.2-3.9) gm/dL Albumin/Globulin Ratio (1.0-2.1) Carcinoembryonic Ag 8.2 H (0-3.0) ng/mL Ur L.pneumophila Ag Negative Negative (NEGATIVE) Laboratory Results - last 24 hr 09/13/16 09/13/16 09/13/16 17:38 17:38 18:00 WBC RBC Hgb Hct MCV MCH MCHC RDW Plt Count MPV Neut % (Auto) Lymph % (Auto) Wilson % (Auto) Eos % (Auto) Baso % (Auto) Neut # Lymph # Wilson # Eos # Baso # Neutrophils % (Manual) Band Neutrophils % Lymphocytes % (Manual) Monocytes % (Manual) Eosinophils % (Manual) Basophils % (Manual) Platelet Estimate Hypochromasia (manual) Poikilocytosis (manual Anisocytosis (manual) Sodium Potassium Chloride Carbon Dioxide Anion Gap BUN Creatinine Est GFR ( Amer) Est GFR (Non-Af Amer) Random Glucose Calcium Phosphorus Magnesium Total Bilirubin AST ALT Alkaline Phosphatase Total Protein Albumin Globulin Albumin/Globulin Ratio Carcinoembryonic Ag 8.2 H Ur L.pneumophila Ag Negative Negative 09/14/16 09/14/16 09/14/16 07:19 07:19 12:54 WBC 9.8 10.2 RBC 2.75 L 2.73 L Hgb 7.3 L 7.3 L Hct 23.5 L 23.5 L MCV 85.7 86.0 MCH 26.6 L 26.9 L MCHC 31.0 L 31.3 L RDW 13.6 13.6 Plt Count 284 266 MPV 7.3 7.1 L Neut % (Auto) 82.7 H Lymph % (Auto) 7.7 L Wilson % (Auto) 4.6 Eos % (Auto) 3.9 Baso % (Auto) 1.1 Neut # 8.1 H Lymph # 0.8 L Wilson # 0.5 Eos # 0.4 Baso # 0.1 Neutrophils % (Manual) 81 H Band Neutrophils % 1 Lymphocytes % (Manual) 8 L Monocytes % (Manual) 4 Eosinophils % (Manual) 5 H Basophils % (Manual) 1 Platelet Estimate Normal Hypochromasia (manual) Slight Poikilocytosis (manual Slight Anisocytosis (manual) Slight Sodium 140 Potassium 4.9 Chloride 112 H Carbon Dioxide 21 L Anion Gap 12 BUN 68 H Creatinine 1.6 H Est GFR ( Amer) 50 Est GFR (Non-Af Amer) 41 Random Glucose 89 Calcium 7.7 L Phosphorus 3.7 Magnesium 2.1 Total Bilirubin 0.4 AST 13 L ALT 21 Alkaline Phosphatase 73 Total Protein 5.6 L Albumin 2.4 L Globulin 3.2 Albumin/Globulin Ratio 0.8 L Carcinoembryonic Ag Ur L.pneumophila Ag Critical Care Progress Note - Nutrition Nutrition: Nutrition Category Date Time Status Heart Healthy Diet [DIET] Diets 09/13/16 Breakfast Active Attending/Attestation - Attestation I have personally seen and examined this patient.: Yes I have fully participated in the care of the patient.: Yes I have reviewed all pertinent clinical information: Yes Notes (Text): 09/14/16 14:03 I have seen and examined the patient. Medical records, lab studies, and imaging were reviewed by me and a management plan was formulated on multidisciplinary rounds with resident Dr. Golden. I agree with their above documented assessment and plan. Patient's pneumonia has significantly improved. After reviewing CT chest with radiologist, no determination can be made about possibility of pulmonary mets, it is suggested to repeat chest CT once infection has completely resolved. Patient is clinically stable for downgrade to floors. Critical Care Time 35 minutes. Multi-disciplinary rounds were performed with house staff, nursing, speech therapy, respiratory therapy, pharmacy and nutrition with integrated input from the primary team/attending and other consulting services. The documented time is cumulative and includes review of patient data/exams/labs/chart review and examination of the patient on rounds and throughout the day; time is exclusive of any procedures or teaching time.
[2016-09-14 07:22] LABS: BASO # 0.1 K/uL (0.0-0.2); BASO % 1.1 % (0.0-2.0); EOS # 0.4 K/uL (0.0-0.7); EOS % 3.9 % (0.0-4.0); HEMATOCRIT 23.5 % (35.0-51.0); LYMPH # 0.8 K/uL (1.0-4.3); LYMPH % 7.7 % (20.0-40.0); MEAN CELL VOLUME 85.7 fL (80.0-94.0); MEAN CORPUSCULAR HEMOGLOBIN 26.6 pg (27.0-31.0); MEAN PLATELET VOLUME 7.3 fL (7.2-11.7); MONO # 0.5 K/uL (0.0-0.8); MONO % 4.6 % (0.0-10.0); PLATELET COUNT 284 K/uL (130-400); RED CELL DISTRIBUTION WIDTH 13.6 % (11.5-14.5); WHITE BLOOD COUNT 9.8 K/uL (4.8-10.8)
[2016-09-14 07:46] LABS: POTASSIUM 4.9 mmol/L (3.6-5.2)
[2016-09-14 07:48] LABS: BILIRUBIN,TOTAL 0.4 mg/dL (0.2-1.3); TOTAL PROTEIN 5.6 g/dL (6.3-8.3)
[2016-09-14 07:49] LABS: CALCIUM 7.7 mg/dl (8.6-10.4); MAGNESIUM 2.1 mg/dL (1.6-2.3); PHOSPHOROUS 3.7 mg/dL (2.5-4.5)
[2016-09-14 07:56] LABS: ALB/GLOB RATIO 0.8 (1.0-2.1)
[2016-09-14] MEDS: Moxifloxacin IV 400mg/250ml NS 400 MG/250 ML BAG IVPB SCH (09:25)
[2016-09-14] MEDS: Megestrol Acetate 40 mg/ml Cup PO SCH (09:28)
[2016-09-14] MEDS: Sodium Chloride 0.9% 1,000 ML IV SCH ×2 (09:29→22:47)
[2016-09-14 09:31] LABS: BASOPHIL 1 % (0-2); EOSINOPHIL 5 % (0-4); NEUTROPHIL 81 % (50-75); TOTAL CELLS COUNTED 100
--- NOTE | 2016-09-14 09:43 | CP.PCM.PN ---
Subjective - Date & Time of Evaluation Date of Evaluation: 09/14/16 Time of Evaluation: 15:00 - Subjective Subjective: clinically same Objective - Vital Signs/Intake and Output Vital Signs (last 24 hours): Temp Pulse Resp BP Pulse Ox 98.4 F 101 H 21 137/50 L 100 09/14/16 08:00 09/14/16 07:59 09/14/16 07:59 09/14/16 07:59 09/14/16 08:00 Intake and Output: 09/14/16 09/14/16 06:59 18:59 Intake Total 1100 160 Output Total 750 100 Balance 350 60 - Medications Medications: Current Medications Albuterol/Ipratropium (Duoneb 3 Mg/0.5 Mg (3 Ml) Ud) 3 ml INH RQ6 [facility] Last Admin: 09/14/16 07:20 Dose: 3 ml Famotidine (Pepcid) 20 mg PO DAILY [facility] Last Admin: 09/14/16 09:28 Dose: 20 mg Ferrous Sulfate (Feosol) 325 mg PO DAILY [facility] Last Admin: 09/14/16 09:28 Dose: 325 mg Folic Acid (Folic Acid) 1 mg PO DAILY [facility] Last Admin: 09/14/16 09:28 Dose: 1 mg Guaifenesin (Robitussin) 100 mg PO Q4H PRN PRN Reason: Cough Heparin Sodium (Porcine) (Heparin) 5,000 units SC Q8 [facility] Last Admin: 09/14/16 06:41 Dose: 5,000 units Moxifloxacin HCl (Avelox Iv 400mg/250ml Ns) 400 mg in 250 mls @ 167 mls/hr IVPB Q24H [facility] Last Admin: 09/14/16 09:25 Dose: 167 mls/hr Sodium Chloride (Sodium Chloride 0.9%) 1,000 mls @ 80 mls/hr IV .[id number] [facility] Last Admin: 09/14/16 09:29 Dose: 80 mls/hr Cefepime HCl (Maxipime Iv 1 Gm Premix) 1 gm in 50 mls @ 100 mls/hr IVPB Q12H [facility] Last Admin: 09/14/16 06:30 Dose: 100 mls/hr Levothyroxine Sodium (Synthroid) 100 mcg PO DAILY@0630 [facility] Last Admin: 09/14/16 06:41 Dose: 100 mcg Megestrol Acetate (Megace) 400 mg PO DAILY [facility] Last Admin: 09/14/16 09:28 Dose: 400 mg Tamsulosin HCl (Flomax) 0.4 mg PO DAILY [facility] Last Admin: 09/14/16 09:28 Dose: 0.4 mg - Labs Labs: 09/14/16 07:19 09/14/16 07:19 PT 13.5 SECONDS (9.7-12.2) H 09/12/16 19:06 INR 1.2 09/12/16 19:06 APTT 28 SECONDS (21-34) 09/12/16 19:06 - Constitutional Appears: Well - Head Exam Head Exam: ATRAUMATIC, NORMAL INSPECTION, NORMOCEPHALIC - Eye Exam Eye Exam: EOMI, Normal appearance, PERRL Pupil Exam: NORMAL ACCOMODATION, PERRL - ENT Exam ENT Exam: Mucous Membranes Moist, Normal Exam - Neck Exam Neck Exam: Full ROM, Normal Inspection. 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 denies Blood transfusion despite low hgb CT shows B/l nodules s/p lung biopsy shows organizing pneumonia and suspicious for malignancy IV antibiotic Follow-up with labs
--- NOTE | 2016-09-14 12:52 | CON ---
DATE: 09/14/2016 An 86-year-old male, known to me, history of COPD, colon cancer, status post resection. Admitted to the hospital with chief complaint of generalized weakness, fatigue, altered mental status patie nt found to be anemic. CAT scan chest revealed evidence of severe COPD and spiculated mass. The willow diaz is now in ICU, very lethargic, underbuilt. PHYSICAL EXAMINATION: VITAL SIGNS: Temperature 98, pulse 90. HEENT: Within normal limits. NECK: Supple. CHEST: Symmetrical. HEART: Regular. ABDOMEN: Soft. EXTREMITIES: No edema. The patient suffers from altered mental status with dehydration, anemia, history of colon cancer, dominic g nodule 1.1 cm. The patient neoplasm versus versus fibrotic lesion. At this point, willow diaz is very deconditioned, needs supportive care. Will reevaluate when infection is better. Finn Manning MD cc: [id number] TT: 09/14/2016 12:50:51 Confirmation # [id number] Dictation # [id number] en
[2016-09-14 13:01] LABS: HEMATOCRIT 23.5 % (35.0-51.0); MEAN CORPUSCULAR HEMOGLOBIN 26.9 pg (27.0-31.0); MEAN CORPUSCULAR HGB CONC 31.3 g/dL (33.0-37.0); MEAN PLATELET VOLUME 7.1 fL (7.2-11.7); RED CELL DISTRIBUTION WIDTH 13.6 % (11.5-14.5); WHITE BLOOD COUNT 10.2 K/uL (4.8-10.8)
--- NOTE | 2016-09-14 16:09 | CP.PCM.CON ---
History of Present Illness - History of Present Illness History of Present Illness: Patient refusing blood transfusion this AM, despite low Hgb (7.3). weak lethargic bedridden iv antibiotics in progress await cultures entire chart reviewed discussed with tone Doan on rounds Review of Systems - Review of Systems All systems: reviewed and no additional remarkable complaints except - EENT Eyes: As Per HPI Ears: As Per HPI Nose/Mouth/Throat: As Per HPI - Cardiovascular Cardiovascular: As Per HPI - Respiratory Respiratory: As Per HPI - Gastrointestinal Gastrointestinal: As Per HPI - Genitourinary Genitourinary: As Per HPI - Reproductive: Male Reproductive:Male: As Per HPI - Musculoskeletal Musculoskeletal: As Per HPI - Integumentary Integumentary: As Per HPI - Neurological Neurological: As Per HPI - Psychiatric Psychiatric: As Per HPI - Endocrine Endocrine: As Per HPI - Hematologic/Lymphatic Hematologic: As Per HPI Past Patient History - Infectious Disease Hx of Infectious Diseases: None - Past Medical History & Family History Past Medical History?: Yes - Past Social History Smoking Status: Never Smoked - CARDIAC Hx Cardiac Disorders: Yes Hx Atrial Fibrillation: Yes Hx Hypertension: Yes - PULMONARY Hx Respiratory Disorders: Yes Hx Bronchitis: Yes Hx Chronic Obstructive Pulmonary Disease (COPD): Yes Hx Emphysema: Yes - NEUROLOGICAL Hx Neurological Disorder: No - HEENT Hx HEENT Problems: Yes Hx Cataracts: Yes - RENAL Hx Chronic Kidney Disease: Yes - ENDOCRINE/METABOLIC Hx Endocrine Disorders: No - HEMATOLOGICAL/ONCOLOGICAL Hx Blood Disorders: Yes Hx Anemia: Yes Hx Cancer: Yes - INTEGUMENTARY Hx Dermatological Problems: Yes Other/Comment: hx of temporary rashes. 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 - GENITOURINARY/GYNECOLOGICAL Hx Genitourinary Disorders: No - PSYCHIATRIC Hx Substance Use: No - SURGICAL HISTORY Hx Surgeries: Yes Hx Joint Replacement: Yes (left hip replacement) Hx Orthopedic Surgery: Yes (hip surgery) Other/Comment: colon resection 06/2016 - ANESTHESIA Hx Anesthesia: Yes Hx Anesthesia Reactions: No Hx Malignant Hyperthermia: No Has any member of the family had a problem w/ anesthesia?: No Meds Allergies/Adverse Reactions: Allergies Allergy/AdvReac Type Severity Reaction Status Date / Time No Known Allergies Allergy Verified 05/27/16 01:08 - Medications Medications: Current Medications Albuterol/Ipratropium (Duoneb 3 Mg/0.5 Mg (3 Ml) Ud) 3 ml INH RQ6 [facility] Last Admin: 09/14/16 13:09 Dose: 3 ml Famotidine (Pepcid) 20 mg PO DAILY [facility] Last Admin: 09/14/16 09:28 Dose: 20 mg Ferrous Sulfate (Feosol) 325 mg PO DAILY [facility] Last Admin: 09/14/16 09:28 Dose: 325 mg Folic Acid (Folic Acid) 1 mg PO DAILY [facility] Last Admin: 09/14/16 09:28 Dose: 1 mg Guaifenesin (Robitussin) 100 mg PO Q4H PRN PRN Reason: Cough Heparin Sodium (Porcine) (Heparin) 5,000 units SC Q8 [facility] Last Admin: 09/14/16 13:38 Dose: 5,000 units Moxifloxacin HCl (Avelox Iv 400mg/250ml Ns) 400 mg in 250 mls @ 167 mls/hr IVPB Q24H [facility] Last Admin: 09/14/16 09:25 Dose: 167 mls/hr Sodium Chloride (Sodium Chloride 0.9%) 1,000 mls @ 80 mls/hr IV .[id number] [facility] Last Admin: 09/14/16 09:29 Dose: 80 mls/hr Cefepime HCl (Maxipime Iv 1 Gm Premix) 1 gm in 50 mls @ 100 mls/hr IVPB Q12H [facility] Last Admin: 09/14/16 06:30 Dose: 100 mls/hr Levothyroxine Sodium (Synthroid) 100 mcg PO DAILY@0630 [facility] Last Admin: 09/14/16 06:41 Dose: 100 mcg Megestrol Acetate (Megace) 400 mg PO DAILY [facility] Last Admin: 09/14/16 09:28 Dose: 400 mg Tamsulosin HCl (Flomax) 0.4 mg PO DAILY [facility] Last Admin: 09/14/16 09:28 Dose: 0.4 mg Physical Exam - Constitutional Appears: Confused, Cachectic, Chronically Ill - Head Exam Head Exam: ATRAUMATIC, NORMAL INSPECTION, NORMOCEPHALIC - Eye Exam Eye Exam: PERRL. absent: Scleral icterus - ENT Exam ENT Exam: Mucous Membranes Dry, Normal External Ear Exam, Normal Oropharynx - Neck Exam Neck exam: Negative for: Lymphadenopathy, Thyromegaly - Expanded Respiratory Exam Expanded Respiratory: decreased breath sounds: Right, rales: Right, rhonchi: Left - Cardiovascular Exam Cardiovascular Exam: REGULAR RHYTHM, +S1, +S2 - GI/Abdominal Exam GI & Abdominal Exam: Diminished Bowel Sounds, Soft. absent: Tenderness - Rectal Exam Rectal Exam: Deferred - Exam Exam: NORMAL INSPECTION. absent: Scrotal Swelling - Extremities Exam Extremities exam: Negative for: pedal edema - Back Exam Back exam: absent: CVA tenderness (L), CVA tenderness (R) - Neurological Exam Neurological exam: Alert, CN II-XII Intact, Oriented x3, Reflexes Normal - Psychiatric Exam Psychiatric exam: Normal Mood - Skin Skin Exam: Dry, Intact Results - Vital Signs Recent Vital Signs: Last Vital Signs Temp 98.4 F 09/14/16 16:00 Pulse 88 09/14/16 15:59 Resp 27 H 09/14/16 15:59 BP 117/56 L 09/14/16 15:59 Pulse Ox 100 09/14/16 16:00 - Labs Result Diagrams: 09/14/16 12:54 09/14/16 07:19 Labs: Laboratory Results - last 24 hr 09/13/16 09/13/16 09/13/16 17:38 17:38 18:00 WBC RBC Hgb Hct MCV MCH MCHC RDW Plt Count MPV Neut % (Auto) Lymph % (Auto) Kleberg % (Auto) Eos % (Auto) Baso % (Auto) Neut # Lymph # Kleberg # Eos # Baso # Neutrophils % (Manual) Band Neutrophils % Lymphocytes % (Manual) Monocytes % (Manual) Eosinophils % (Manual) Basophils % (Manual) Platelet Estimate Hypochromasia (manual) Poikilocytosis (manual Anisocytosis (manual) Sodium Potassium Chloride Carbon Dioxide Anion Gap BUN Creatinine Est GFR ( Amer) Est GFR (Non-Af Amer) Random Glucose Calcium Phosphorus Magnesium Total Bilirubin AST ALT Alkaline Phosphatase Total Protein Albumin Globulin Albumin/Globulin Ratio Carcinoembryonic Ag 8.2 H Ur L.pneumophila Ag Negative Negative 09/14/16 09/14/16 09/14/16 07:19 07:19 12:54 WBC 9.8 10.2 RBC 2.75 L 2.73 L Hgb 7.3 L 7.3 L Hct 23.5 L 23.5 L MCV 85.7 86.0 MCH 26.6 L 26.9 L MCHC 31.0 L 31.3 L RDW 13.6 13.6 Plt Count 284 266 MPV 7.3 7.1 L Neut % (Auto) 82.7 H Lymph % (Auto) 7.7 L Kleberg % (Auto) 4.6 Eos % (Auto) 3.9 Baso % (Auto) 1.1 Neut # 8.1 H Lymph # 0.8 L Kleberg # 0.5 Eos # 0.4 Baso # 0.1 Neutrophils % (Manual) 81 H Band Neutrophils % 1 Lymphocytes % (Manual) 8 L Monocytes % (Manual) 4 Eosinophils % (Manual) 5 H Basophils % (Manual) 1 Platelet Estimate Normal Hypochromasia (manual) Slight Poikilocytosis (manual Slight Anisocytosis (manual) Slight Sodium 140 Potassium 4.9 Chloride 112 H Carbon Dioxide 21 L Anion Gap 12 BUN 68 H Creatinine 1.6 H Est GFR ( Amer) 50 Est GFR (Non-Af Amer) 41 Random Glucose 89 Calcium 7.7 L Phosphorus 3.7 Magnesium 2.1 Total Bilirubin 0.4 AST 13 L ALT 21 Alkaline Phosphatase 73 Total Protein 5.6 L Albumin 2.4 L Globulin 3.2 Albumin/Globulin Ratio 0.8 L Carcinoembryonic Ag Ur L.pneumophila Ag Assessment & Plan (1) NOEMI (acute kidney injury) Status: Acute (2) Hypotension Status: Acute (3) Pneumonia Status: Acute (4) Severe dehydration Status: Acute (5) Abdominal pain Status: Acute (6) Rheumatoid arthritis Status: Acute (7) COPD (chronic obstructive pulmonary disease) Status: Chronic (8) Hypertension Status: Chronic (9) Renal insufficiency Status: Chronic - Assessment and Plan (Free Text) Assessment: cont iv rx await cultures
[2016-09-15] MEDS: Albuterol-Ipratrop 3 mg / 0.5 (3 ml) UD INH SCH ×4 (01:17→20:05)
[2016-09-15 05:58] LABS: BASO # 0.1 K/uL (0.0-0.2); EOS # 0.3 K/uL (0.0-0.7); EOS % 3.2 % (0.0-4.0); HEMATOCRIT 24.7 % (35.0-51.0); LYMPH # 0.8 K/uL (1.0-4.3); LYMPH % 7.6 % (20.0-40.0); MEAN CELL VOLUME 86.2 fL (80.0-94.0); MEAN CORPUSCULAR HEMOGLOBIN 26.8 pg (27.0-31.0); MEAN CORPUSCULAR HGB CONC 31.2 g/dL (33.0-37.0); MEAN PLATELET VOLUME 7.4 fL (7.2-11.7); MONO # 0.6 K/uL (0.0-0.8); MONO % 6.3 % (0.0-10.0); PLATELET COUNT 327 K/uL (130-400); RED CELL DISTRIBUTION WIDTH 13.4 % (11.5-14.5); WHITE BLOOD COUNT 9.9 K/uL (4.8-10.8)
[2016-09-15 06:08] LABS: POTASSIUM 5.3 mmol/L (3.6-5.2)
[2016-09-15] MEDS: Cefepime IV 1 gm in Dextrose 1 GM/50 ML BAG IVPB SCH (06:09)
[2016-09-15 06:10] LABS: ALB/GLOB RATIO 0.8 (1.0-2.1); BILIRUBIN,TOTAL 0.4 mg/dL (0.2-1.3); PHOSPHOROUS 2.5 mg/dL (2.5-4.5); TOTAL PROTEIN 5.6 g/dL (6.3-8.3)
[2016-09-15] MEDS: Levothyroxine 100 MCG TAB PO SCH (06:10)
[2016-09-15 06:11] LABS: MAGNESIUM 2.1 mg/dL (1.6-2.3)
[2016-09-15 08:16] LABS: ABG ALLEN TEST POS; DRAW SITE RR
[2016-09-15 09:09] LABS: EOSINOPHIL 3 % (0-4); NEUTROPHIL 80 % (50-75); TOTAL CELLS COUNTED 100
[2016-09-15 09:13] LABS: PLATELET CLUMPS PRESENT
[2016-09-15] MEDS: Moxifloxacin IV 400mg/250ml NS 400 MG/250 ML BAG IVPB SCH (09:43)
[2016-09-15] MEDS ORDERED: Acetylcysteine 20% Inhal Soln (4ml) INH SCH (10:45)
[2016-09-15] MEDS: Megestrol Acetate 40 mg/ml Cup PO SCH ×2 (11:55→12:02)
[2016-09-15] MEDS: Linezolid 600 mg in D5W 300 ml 600 MG/300 ML BAG IVPB SCH ×2 (12:00→22:00)
[2016-09-15 12:07] LABS: RBC URINE < 1 /hpf (0-3); URINE BILIRUBIN NEGATIVE (NEGATIVE); URINE BLOOD NEGATIVE (NEGATIVE); URINE COLOR Straw (YELLOW); URINE GLUCOSE (UA) NORMAL (Normal); URINE KETONE NEGATIVE (NEGATIVE); URINE LEUKOCYTE ESTERASE NEG Leu/uL (Negative); URINE PROTEIN NEGATIVE (NEGATIVE); URINE UROBILINOGEN NORMAL mg/dL (0.2-1.0); WBC URINE 1 /hpf (0-5)
[2016-09-15] MEDS: Meropenem 500 MG in Sodium Chloride 0.9% 100 ML IVPB SCH ×2 (12:08→20:00)
--- NOTE | 2016-09-15 12:10 | CP.CCUPN ---
CCU Subjective - Physician Review Events Since Last Encounter (Free Text): 09/15/16 12:09 patient is tachypneic and appears more ill today. CCU Objective - Vital Signs / Intake & Output Vital Signs (Last 4 hours): Vital Signs Pulse Resp BP 09/15/16 11:00 106 H 30 H 09/15/16 10:52 109 H 27 H 109/52 L 09/15/16 10:00 97 H 26 H 09/15/16 09:51 105 H 26 H 125/63 09/15/16 09:00 117 H 26 H 09/15/16 08:52 120 H 28 H 118/61 09/15/16 08:50 121 H 28 H Intake and Output (Last 8hrs): Intake & Output 09/14/16 09/15/16 09/15/16 22:59 06:59 14:59 Intake Total 1080 760 705 Output Total 200 800 600 Balance 880 -40 105 Intake: Intake, IV Amount 660 640 405 Left Forearm 660 640 405 Oral 420 120 300 Output: Urine 200 800 600 Urine, Voided 200 800 600 Other: # Voids Urine, Voided 0 # Bowel Movements 0 - Physical Exam Head: Positive for: Atraumatic, Normocephalic Pupils: Positive for: PERRL Extroacular Muscles: Positive for: EOMI Mouth: Positive for: Dry Respiratory/Chest: Positive for: Clear to Auscultation, Tachypneic Cardiovascular: Positive for: Tachycardic Abdomen: Positive for: Normal Bowel Sounds Upper Extremity: Positive for: Normal Inspection, NORMAL PULSES. Negative for: Cyanosis, Edema Lower Extremity: Positive for: Normal Inspection, Edema, NORMAL PULSES. Negative for: CALF TENDERNESS Neurological: Positive for: GCS=15, CN II-XII Intact Skin: Positive for: Warm, Dry, Normal Color Psychiatric: Positive for: Alert, Oriented x 3 - Medications Active Medications: Active Medications Generic Name Dose Route Start Last Admin Trade Name Freq PRN Reason Stop Dose Admin Acetylcysteine 4 ml 09/15/16 14:00 Acetylcysteine 20% INH RQ6 [facility] Albuterol/Ipratropium 3 ml 09/15/16 14:00 Duoneb 3 Mg/0.5 Mg (3 Ml) Ud INH RQ6 [facility] Famotidine 20 mg 09/13/16 10:00 09/15/16 09:44 Pepcid PO 20 mg DAILY [facility] Administration Ferrous Sulfate 325 mg 09/13/16 10:00 09/15/16 09:44 Feosol PO 325 mg DAILY [facility] Administration Folic Acid 1 mg 09/13/16 10:00 09/15/16 09:44 Folic Acid PO 1 mg DAILY [facility] Administration Guaifenesin 100 mg 09/12/16 22:31 Robitussin PO Q4H PRN Cough Heparin Sodium (Porcine) 5,000 units 09/13/16 06:00 09/15/16 06:09 Heparin SC 5,000 units Q8 [facility] Administration Sodium Bicarbonate 150 meq/ 1,150 mls @ 75 mls/hr 09/15/16 08:00 09/15/16 12: 02 Sodium Chloride IV 75 mls/hr .[id number] [facility] Administration Linezolid 600 mg in 300 mls @ 100 mls/hr 09/15/16 11:00 09/15/16 12:00 Zyvox 600mg/300ml D5w IVPB 100 mls/hr Q12H [facility] Administration Meropenem 500 mg/ Sodium 100 mls @ 100 mls/hr 09/15/16 13:00 Chloride IVPB Q8H [facility] Levothyroxine Sodium 100 mcg 09/13/16 06:30 09/15/16 06:10 Synthroid PO 100 mcg DAILY@0630 [facility] Administration Megestrol Acetate 400 mg 09/13/16 10:45 09/15/16 12:02 Megace PO 400 mg DAILY [facility] Administration Tamsulosin HCl 0.4 mg 09/13/16 10:00 09/15/16 09:44 Flomax PO 0.4 mg DAILY [facility] Administration - Patient Studies Lab Studies: Microbiology Studies 09/12/16 22:15 Blood Culture - Preliminary Blood NO GROWTH AFTER 48 HOURS 09/12/16 22:15 Blood Culture - Preliminary Blood NO GROWTH AFTER 48 HOURS 09/13/16 07:00 MRSA Culture (Admit) - Final Naris MRSA NOT DETECTED Lab Studies 09/15/16 09/15/16 09/15/16 Range/Units 08:13 05:50 05:50 WBC 9.9 (4.8-10.8) K/uL RBC 2.87 L (4.40-5.90) Mil/uL Hgb 7.7 L (12.0-18.0) g/dL Hct 24.7 L (35.0-51.0) % MCV 86.2 (80.0-94.0) fL MCH 26.8 L (27.0-31.0) pg MCHC 31.2 L (33.0-37.0) g/dL RDW 13.4 (11.5-14.5) % Plt Count 327 (130-400) K/uL MPV 7.4 (7.2-11.7) fL Neut % (Auto) 81.9 H (50.0-75.0) % Lymph % (Auto) 7.6 L (20.0-40.0) % Franklin % (Auto) 6.3 (0.0-10.0) % Eos % (Auto) 3.2 (0.0-4.0) % Baso % (Auto) 1.0 (0.0-2.0) % Neut # 8.1 H (1.8-7.0) K/uL Lymph # 0.8 L (1.0-4.3) K/uL Franklin # 0.6 (0.0-0.8) K/uL Eos # 0.3 (0.0-0.7) K/uL Baso # 0.1 (0.0-0.2) K/uL Neutrophils % (Manual) 80 H (50-75) % Band Neutrophils % 2 (0-2) % Lymphocytes % (Manual) 8 L (20-40) % Monocytes % (Manual) 7 (0-10) % Eosinophils % (Manual) 3 (0-4) % Toxic Granulation Present Platelet Estimate Normal (NORMAL) Plt Clumps, EDTA Present Polychromasia Slight Hypochromasia (manual) Slight Poikilocytosis (manual Slight Basophilic Stippling Slight Anisocytosis (manual) Slight Tear Drop Cells Slight Schistocytes Slight Puncture Site Rr pCO2 29 L (35-45) mm/Hg pO2 65 L (80-100) mm/Hg HCO3 20.5 L (21-28) mmol/L ABG pH 7.40 (7.35-7.45) ABG Total CO2 18.9 L (22-28) mmol/L ABG O2 Saturation 98.2 H (95-98) % ABG Base Excess -5.5 L (-2.0-3.0) mmol/L Alber Test Pos ABG Potassium 4.8 (3.6-5.2) mmol/L A-a O2 Difference 48.0 mm/Hg Respiratory Index 0.7 Glucose 96 (75-110) mg/dl Lactate 0.6 L (0.7-2.1) mmol/L FiO2 21.0 % Sodium 144.0 145 (132-148) mmol/L Potassium 5.3 H (3.6-5.2) mmol/L Chloride 123.0 H 113 H (98-107) mmol/L Carbon Dioxide 17 L (22-30) mmol/L Anion Gap 20 (10-20) BUN 52 H (9-20) mg/dL Creatinine 1.4 (0.8-1.5) MG/DL Est GFR ( Amer) 58 Est GFR (Non-Af Amer) 48 Random Glucose 82 (75-110) mg/dL Calcium 8.0 L (8.6-10.4) mg/dl Phosphorus 2.5 (2.5-4.5) mg/dL Magnesium 2.1 (1.6-2.3) mg/dL Total Bilirubin 0.4 (0.2-1.3) mg/dL AST 13 L (17-59) U/L ALT 21 (21-72) U/L Alkaline Phosphatase 66 (38-126) U/L Total Protein 5.6 L (6.3-8.3) g/dL Albumin 2.5 L (3.5-5.0) g/dL Globulin 3.1 (2.2-3.9) gm/dL Albumin/Globulin Ratio 0.8 L (1.0-2.1) Arterial Blood Potassium 4.8 (3.6-5.2) mmol/L /09/26 Range/Units 12:54 WBC 10.2 (4.8-10.8) K/uL RBC 2.73 L (4.40-5.90) Mil/uL Hgb 7.3 L (12.0-18.0) g/dL Hct 23.5 L (35.0-51.0) % MCV 86.0 (80.0-94.0) fL MCH 26.9 L (27.0-31.0) pg MCHC 31.3 L (33.0-37.0) g/dL RDW 13.6 (11.5-14.5) % Plt Count 266 (130-400) K/uL MPV 7.1 L (7.2-11.7) fL Neut % (Auto) (50.0-75.0) % Lymph % (Auto) (20.0-40.0) % Franklin % (Auto) (0.0-10.0) % Eos % (Auto) (0.0-4.0) % Baso % (Auto) (0.0-2.0) % Neut # (1.8-7.0) K/uL Lymph # (1.0-4.3) K/uL Franklin # (0.0-0.8) K/uL Eos # (0.0-0.7) K/uL Baso # (0.0-0.2) K/uL Neutrophils % (Manual) (50-75) % Band Neutrophils % (0-2) % Lymphocytes % (Manual) (20-40) % Monocytes % (Manual) (0-10) % Eosinophils % (Manual) (0-4) % Toxic Granulation Platelet Estimate (NORMAL) Plt Clumps, EDTA Polychromasia Hypochromasia (manual) Poikilocytosis (manual Basophilic Stippling Anisocytosis (manual) Tear Drop Cells Schistocytes Puncture Site pCO2 (35-45) mm/Hg pO2 (80-100) mm/Hg HCO3 (21-28) mmol/L ABG pH (7.35-7.45) ABG Total CO2 (22-28) mmol/L ABG O2 Saturation (95-98) % ABG Base Excess (-2.0-3.0) mmol/L Alber Test ABG Potassium (3.6-5.2) mmol/L A-a O2 Difference mm/Hg Respiratory Index Glucose (75-110) mg/dl Lactate (0.7-2.1) mmol/L FiO2 % Sodium (132-148) mmol/L Potassium (3.6-5.2) mmol/L Chloride (98-107) mmol/L Carbon Dioxide (22-30) mmol/L Anion Gap (10-20) BUN (9-20) mg/dL Creatinine (0.8-1.5) MG/DL Est GFR ( Amer) Est GFR (Non-Af Amer) Random Glucose (75-110) mg/dL Calcium (8.6-10.4) mg/dl Phosphorus (2.5-4.5) mg/dL Magnesium (1.6-2.3) mg/dL Total Bilirubin (0.2-1.3) mg/dL AST (17-59) U/L ALT (21-72) U/L Alkaline Phosphatase (38-126) U/L Total Protein (6.3-8.3) g/dL Albumin (3.5-5.0) g/dL Globulin (2.2-3.9) gm/dL Albumin/Globulin Ratio (1.0-2.1) Arterial Blood Potassium (3.6-5.2) mmol/L Laboratory Results - last 24 hr 09/14/16 09/15/16 09/15/16 12:54 05:50 05:50 WBC 10.2 9.9 RBC 2.73 L 2.87 L Hgb 7.3 L 7.7 L Hct 23.5 L 24.7 L MCV 86.0 86.2 MCH 26.9 L 26.8 L MCHC 31.3 L 31.2 L RDW 13.6 13.4 Plt Count 266 327 MPV 7.1 L 7.4 Neut % (Auto) 81.9 H Lymph % (Auto) 7.6 L Franklin % (Auto) 6.3 Eos % (Auto) 3.2 Baso % (Auto) 1.0 Neut # 8.1 H Lymph # 0.8 L Franklin # 0.6 Eos # 0.3 Baso # 0.1 Neutrophils % (Manual) 80 H Band Neutrophils % 2 Lymphocytes % (Manual) 8 L Monocytes % (Manual) 7 Eosinophils % (Manual) 3 Toxic Granulation Present Platelet Estimate Normal Plt Clumps, EDTA Present Polychromasia Slight Hypochromasia (manual) Slight Poikilocytosis (manual Slight Basophilic Stippling Slight Anisocytosis (manual) Slight Tear Drop Cells Slight Schistocytes Slight Puncture Site pCO2 pO2 HCO3 ABG pH ABG Total CO2 ABG O2 Saturation ABG Base Excess Alber Test ABG Potassium A-a O2 Difference Respiratory Index Glucose Lactate FiO2 Sodium 145 Potassium 5.3 H Chloride 113 H Carbon Dioxide 17 L Anion Gap 20 BUN 52 H Creatinine 1.4 Est GFR ( Amer) 58 Est GFR (Non-Af Amer) 48 Random Glucose 82 Calcium 8.0 L Phosphorus 2.5 Magnesium 2.1 Total Bilirubin 0.4 AST 13 L ALT 21 Alkaline Phosphatase 66 Total Protein 5.6 L Albumin 2.5 L Globulin 3.1 Albumin/Globulin Ratio 0.8 L Arterial Blood Potassium 09/15/16 08:13 WBC RBC Hgb Hct MCV MCH MCHC RDW Plt Count MPV Neut % (Auto) Lymph % (Auto) Franklin % (Auto) Eos % (Auto) Baso % (Auto) Neut # Lymph # Franklin # Eos # Baso # Neutrophils % (Manual) Band Neutrophils % Lymphocytes % (Manual) Monocytes % (Manual) Eosinophils % (Manual) Toxic Granulation Platelet Estimate Plt Clumps, EDTA Polychromasia Hypochromasia (manual) Poikilocytosis (manual Basophilic Stippling Anisocytosis (manual) Tear Drop Cells Schistocytes Puncture Site Rr pCO2 29 L pO2 65 L HCO3 20.5 L ABG pH 7.40 ABG Total CO2 18.9 L ABG O2 Saturation 98.2 H ABG Base Excess -5.5 L Alber Test Pos ABG Potassium 4.8 A-a O2 Difference 48.0 Respiratory Index 0.7 Glucose 96 Lactate 0.6 L FiO2 21.0 Sodium 144.0 Potassium Chloride 123.0 H Carbon Dioxide Anion Gap BUN Creatinine Est GFR ( Amer) Est GFR (Non-Af Amer) Random Glucose Calcium Phosphorus Magnesium Total Bilirubin AST ALT Alkaline Phosphatase Total Protein Albumin Globulin Albumin/Globulin Ratio Arterial Blood Potassium 4.8 Review of Systems - Review of Systems Systems not reviewed;Unavailable: Altered Mental Status All systems: reviewed and no additional remarkable complaints except Critical Care Progress Note - Nutrition Nutrition: Nutrition Category Date Time Status Heart Healthy Diet [DIET] Diets 09/13/16 Breakfast Active Assessment/Plan (1) Pneumonia Assessment and plan: 86 M with PMHx of COPD, anemia, GI bleed, CHF (last ECHO done at 06/2015 EF 65 %), atrial fibrillation, hypothyroidism, history of colon carcinoma, and 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 Patient was admitted in June for CHF with pneumonia, where he had new onset A-Fib. Neuro: Alert, metabolic encephalopathy secondary to sepsis. Pulm: Persistent left lingular pneumonia, continue duo nebs, mucolytics, antibiotics. Tachypnea as compensatory mechanism for underlying metabolic acidosis. CV: Hemodynamically stable, tachycardic. A. fib self rate controlled, Cardizem by mouth and Midodrine by mouth held for recent hypotension. Hem: No acute issues Renal: High anion gap Metabolic acidosis, lactate normal, possibly secondary to underlying infection. Started hypochloremic fluid 1/2NS+75meq SB@75 Endo: Hypothyroidism, continue Synthroid. GI: Heart healthy diet, megace for appetite stimulation. ID: Sepsis from pneumonia, started on Zyvox and meropenem. Will panculture. DVT proph - heparin subcutaneous GI proph -Pepcid weber for strict I/O's during acute illness Code status - full code Crtical Care Time spent 60 minutes Multi-disciplinary rounds were performed with house staff, nursing, speech therapy, respiratory therapy, pharmacy and nutrition with integrated input from the primary team/attending and other consulting services. The documented time is cumulative and includes review of patient data/exams/labs/chart review and examination of the patient on rounds and throughout the day; time is exclusive of any procedures or teaching time. Current Visit: Yes Status: Acute
--- NOTE | 2016-09-15 13:02 | RAD ---
HISTORY: Pneumonia. Portable study 08:06. COMPARISON: Multiple serial examinations preceding the most recent study: 09/13/2016 chest radiograph. 09/13/2016 CT thorax. FINDINGS: LUNGS: Stable stable infiltrates better seen on the prior CT scan in the lingula. PLEURA: No significant pleural effusion identified, no pneumothorax apparent. CARDIOVASCULAR: Normal. OSSEOUS STRUCTURES: No significant abnormalities. VISUALIZED UPPER ABDOMEN: Normal. OTHER FINDINGS: None. IMPRESSION: Stable lingular infiltrate. No new findings or interval changes.
[2016-09-15] MEDS: Acetylcysteine 20% Inhal Soln (4ml) INH SCH ×2 (13:24→20:04)
--- NOTE | 2016-09-15 14:27 | CP.PCM.PN ---
Subjective - Date & Time of Evaluation Date of Evaluation: 09/15/16 Time of Evaluation: 15:00 - Subjective Subjective: clinically same Objective - Vital Signs/Intake and Output Vital Signs (last 24 hours): Temp Pulse Resp BP Pulse Ox 98.1 F 105 H 30 H 109/52 L 87 L 09/15/16 08:00 09/15/16 12:00 09/15/16 12:00 09/15/16 10:52 09/15/16 08:00 Intake and Output: 09/15/16 09/15/16 06:59 18:59 Intake Total 1200 1230 Output Total 800 900 Balance 400 330 - Medications Medications: Current Medications Acetylcysteine (Acetylcysteine 20%) 4 ml INH RQ6 [facility] Last Admin: 09/15/16 13:24 Dose: 4 ml Albuterol/Ipratropium (Duoneb 3 Mg/0.5 Mg (3 Ml) Ud) 3 ml INH RQ6 [facility] Last Admin: 09/15/16 13:29 Dose: 3 ml Famotidine (Pepcid) 20 mg PO DAILY [facility] Last Admin: 09/15/16 09:44 Dose: 20 mg Ferrous Sulfate (Feosol) 325 mg PO DAILY [facility] Last Admin: 09/15/16 09:44 Dose: 325 mg Folic Acid (Folic Acid) 1 mg PO DAILY [facility] Last Admin: 09/15/16 09:44 Dose: 1 mg Guaifenesin (Robitussin) 100 mg PO Q4H PRN PRN Reason: Cough Heparin Sodium (Porcine) (Heparin) 5,000 units SC Q8 [facility] Last Admin: 09/15/16 06:09 Dose: 5,000 units Sodium Bicarbonate 150 meq/ (Sodium Chloride) 1,150 mls @ 75 mls/hr IV .[id number] [facility] Last Admin: 09/15/16 12:02 Dose: 75 mls/hr Linezolid (Zyvox 600mg/300ml D5w) 600 mg in 300 mls @ 100 mls/hr IVPB Q12H [facility] Last Admin: 09/15/16 12:00 Dose: 100 mls/hr Meropenem 500 mg/ Sodium (Chloride) 100 mls @ 100 mls/hr IVPB Q8H [facility] Last Admin: 09/15/16 12:08 Dose: 100 mls/hr Levothyroxine Sodium (Synthroid) 100 mcg PO DAILY@0630 [facility] Last Admin: 09/15/16 06:10 Dose: 100 mcg Megestrol Acetate (Megace) 400 mg PO DAILY [facility] Last Admin: 09/15/16 12:02 Dose: 400 mg Tamsulosin HCl (Flomax) 0.4 mg PO DAILY [facility] Last Admin: 09/15/16 09:44 Dose: 0.4 mg - Labs Labs: 09/15/16 05:50 09/15/16 05:50 PT 13.5 SECONDS (9.7-12.2) H 09/12/16 19:06 INR 1.2 09/12/16 19:06 APTT 28 SECONDS (21-34) 09/12/16 19:06 - Constitutional Appears: Well - Head Exam Head Exam: ATRAUMATIC, NORMAL INSPECTION, NORMOCEPHALIC - Eye Exam Eye Exam: EOMI, Normal appearance, PERRL Pupil Exam: NORMAL ACCOMODATION, PERRL - ENT Exam ENT Exam: Mucous Membranes Moist, Normal Exam - Neck Exam Neck Exam: Full ROM, Normal Inspection. 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 other meds as ordered Follow-up with labs
--- NOTE | 2016-09-15 15:06 | PN ---
DATE: 09/15/2016 An 12-ejpf-[age]-male, ____ very weak. Shortness of breath still present on exertion. ____ bronchodil ator, oxygen, antibiotic, ____. Finn Manning MD cc: [id number] TT: 09/15/2016 10:41:37 Confirmation # [id number] Dictation # [id number]
--- NOTE | 2016-09-15 21:33 | CP.PCM.PN ---
Subjective - Date & Time of Evaluation Date of Evaluation: 09/15/16 Time of Evaluation: 18:50 - Subjective Subjective: Appears uncomfortable, states he feels weak Objective - Vital Signs/Intake and Output Vital Signs (last 24 hours): Temp Pulse Resp BP Pulse Ox 98.6 F 100 H 27 H 105/51 L 87 L 09/15/16 16:00 09/15/16 20:00 09/15/16 20:00 09/15/16 19:51 09/15/16 08:00 Intake and Output: 09/15/16 09/16/16 18:59 06:59 Intake Total 2055 Output Total 1400 Balance 655 - Medications Medications: Current Medications Acetylcysteine (Acetylcysteine 20%) 4 ml INH RQ6 [facility] Last Admin: 09/15/16 20:04 Dose: 4 ml Albuterol/Ipratropium (Duoneb 3 Mg/0.5 Mg (3 Ml) Ud) 3 ml INH RQ6 [facility] Last Admin: 09/15/16 20:05 Dose: 3 ml Famotidine (Pepcid) 20 mg PO DAILY [facility] Last Admin: 09/15/16 09:44 Dose: 20 mg Ferrous Sulfate (Feosol) 325 mg PO DAILY [facility] Last Admin: 09/15/16 09:44 Dose: 325 mg Folic Acid (Folic Acid) 1 mg PO DAILY [facility] Last Admin: 09/15/16 09:44 Dose: 1 mg Guaifenesin (Robitussin) 100 mg PO Q4H PRN PRN Reason: Cough Heparin Sodium (Porcine) (Heparin) 5,000 units SC Q8 [facility] Last Admin: 09/15/16 21:01 Dose: 5,000 units Sodium Bicarbonate 150 meq/ (Sodium Chloride) 1,150 mls @ 75 mls/hr IV .[id number] [facility] Last Admin: 09/15/16 12:02 Dose: 75 mls/hr Linezolid (Zyvox 600mg/300ml D5w) 600 mg in 300 mls @ 100 mls/hr IVPB Q12H [facility] Last Admin: 09/15/16 12:00 Dose: 100 mls/hr Meropenem 500 mg/ Sodium (Chloride) 100 mls @ 100 mls/hr IVPB Q8H [facility] Last Admin: 09/15/16 20:00 Dose: 100 mls/hr Levothyroxine Sodium (Synthroid) 100 mcg PO DAILY@0630 [facility] Last Admin: 09/15/16 06:10 Dose: 100 mcg Megestrol Acetate (Megace) 400 mg PO DAILY [facility] Last Admin: 09/15/16 12:02 Dose: 400 mg Tamsulosin HCl (Flomax) 0.4 mg PO DAILY [facility] Last Admin: 09/15/16 09:44 Dose: 0.4 mg - Labs Labs: 09/15/16 05:50 09/15/16 05:50 PT 13.5 SECONDS (9.7-12.2) H 09/12/16 19:06 INR 1.2 09/12/16 19:06 APTT 28 SECONDS (21-34) 09/12/16 19:06 - Head Exam Head Exam: ATRAUMATIC - ENT Exam ENT Exam: Mucous Membranes Dry - Respiratory Exam Respiratory Exam: Rhonchi - Cardiovascular Exam Cardiovascular Exam: +S1, +S2 - GI/Abdominal Exam GI & Abdominal Exam: Normal Bowel Sounds - Extremities Exam Extremities Exam: Normal Inspection - Psychiatric Exam Psychiatric exam: Agitated Assessment and Plan (1) Anemia Assessment & Plan: anemia of chronic disease and anemia of CKD transfusion support PRN Status: Acute (2) Colon cancer Assessment & Plan: 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
[2016-09-15 22:32] LABS: BASO # 0.1 K/uL (0.0-0.2); BASO % 1.6 % (0.0-2.0); EOS # 0.2 K/uL (0.0-0.7); EOS % 2.1 % (0.0-4.0); LYMPH # 0.6 K/uL (1.0-4.3); LYMPH % 7.5 % (20.0-40.0); MEAN CELL VOLUME 85.8 fL (80.0-94.0); MEAN CORPUSCULAR HEMOGLOBIN 26.4 pg (27.0-31.0); MEAN CORPUSCULAR HGB CONC 30.7 g/dL (33.0-37.0); MEAN PLATELET VOLUME 7.1 fL (7.2-11.7); MONO # 0.5 K/uL (0.0-0.8); MONO % 6.3 % (0.0-10.0); PLATELET COUNT 297 K/uL (130-400); RED CELL DISTRIBUTION WIDTH 13.4 % (11.5-14.5); WHITE BLOOD COUNT 8.5 K/uL (4.8-10.8)
[2016-09-15 22:36] LABS: CHLORIDE 109 mmol/L (98-107); POTASSIUM 5.2 mmol/L (3.6-5.2); SODIUM 143 mmol/L (132-148)
[2016-09-15 22:38] LABS: AST/SGOT 13 U/L (17-59); BILIRUBIN,TOTAL 0.6 mg/dL (0.2-1.3); CARBON DIOXIDE 20 mmol/L (22-30); GFR AFRICAN-AMERICAN > 60
[2016-09-15 22:39] LABS: ALB/GLOB RATIO 0.8 (1.0-2.1); ALKALINE PHOSPHATASE 72 U/L (38-126); ALT/SGPT 15 U/L (21-72); BLOOD UREA NITROGEN 44 mg/dL (9-20); CALCIUM 7.9 mg/dl (8.6-10.4); GLUCOSE,RANDOM 111 mg/dL (75-110); TOTAL PROTEIN 6.1 g/dL (6.3-8.3)
[2016-09-15 23:39] LABS: EOSINOPHIL 2 % (0-4); METAMYELOCYTE 2 % (0-0); MYELOCYTE 1 % (0-0); NEUTROPHIL 75 % (50-75); TOTAL CELLS COUNTED 100
[2016-09-16] MEDS: Albuterol-Ipratrop 3 mg / 0.5 (3 ml) UD INH SCH ×4 (01:04→19:49)
[2016-09-16] MEDS: Acetylcysteine 20% Inhal Soln (4ml) INH SCH ×4 (01:04→19:49)
[2016-09-16] MEDS: Meropenem 500 MG in Sodium Chloride 0.9% 100 ML IVPB SCH ×3 (04:00→20:30)
[2016-09-16] MEDS: Levothyroxine 100 MCG TAB PO SCH (06:13)
[2016-09-16] MEDS: Linezolid 600 mg in D5W 300 ml 600 MG/300 ML BAG IVPB SCH ×2 (10:00→22:00)
[2016-09-16] MEDS: Megestrol Acetate 40 mg/ml Cup PO SCH (10:22)
--- NOTE | 2016-09-16 12:54 | CP.PCM.PN ---
Subjective - Date & Time of Evaluation Date of Evaluation: 09/16/16 Time of Evaluation: 14:00 - Subjective Subjective: clinically same Objective - Vital Signs/Intake and Output Vital Signs (last 24 hours): Temp Pulse Resp BP Pulse Ox 98.1 F 114 H 16 120/56 L 98 09/16/16 12:00 09/16/16 12:00 09/16/16 12:00 09/16/16 11:52 09/15/16 21:00 Intake and Output: 09/16/16 09/16/16 06:59 18:59 Intake Total 1360 800 Output Total 1485 235 Balance -125 565 - Medications Medications: Current Medications Acetylcysteine (Acetylcysteine 20%) 4 ml INH RQ6 [facility] Last Admin: 09/16/16 07:42 Dose: 4 ml Albuterol/Ipratropium (Duoneb 3 Mg/0.5 Mg (3 Ml) Ud) 3 ml INH RQ6 [facility] Last Admin: 09/16/16 07:41 Dose: 3 ml Famotidine (Pepcid) 20 mg PO DAILY [facility] Last Admin: 09/16/16 10:22 Dose: 20 mg Ferrous Sulfate (Feosol) 325 mg PO DAILY [facility] Last Admin: 09/16/16 10:22 Dose: 325 mg Folic Acid (Folic Acid) 1 mg PO DAILY [facility] Last Admin: 09/16/16 10:22 Dose: 1 mg Guaifenesin (Robitussin) 100 mg PO Q4H PRN PRN Reason: Cough Sodium Bicarbonate 150 meq/ (Sodium Chloride) 1,150 mls @ 75 mls/hr IV .[id number] [facility] Last Admin: 09/16/16 03:00 Dose: 75 mls/hr Linezolid (Zyvox 600mg/300ml D5w) 600 mg in 300 mls @ 100 mls/hr IVPB Q12H [facility] Last Admin: 09/16/16 10:00 Dose: 100 mls/hr Meropenem 500 mg/ Sodium (Chloride) 100 mls @ 100 mls/hr IVPB Q8H [facility] Last Admin: 09/16/16 04:00 Dose: 100 mls/hr Levothyroxine Sodium (Synthroid) 100 mcg PO DAILY@0630 [facility] Last Admin: 09/16/16 06:13 Dose: 100 mcg Megestrol Acetate (Megace) 400 mg PO DAILY [facility] Last Admin: 09/16/16 10:22 Dose: 400 mg Tamsulosin HCl (Flomax) 0.4 mg PO DAILY [facility] Last Admin: 09/16/16 10:22 Dose: 0.4 mg - Labs Labs: 09/15/16 22:22 09/15/16 22:22 PT 13.5 SECONDS (9.7-12.2) H 09/12/16 19:06 INR 1.2 09/12/16 19:06 APTT 28 SECONDS (21-34) 09/12/16 19:06 - Constitutional Appears: Well - Head Exam Head Exam: ATRAUMATIC, NORMAL INSPECTION, NORMOCEPHALIC - Eye Exam Eye Exam: EOMI, Normal appearance, PERRL Pupil Exam: NORMAL ACCOMODATION, PERRL - ENT Exam ENT Exam: Mucous Membranes Moist, Normal Exam - Neck Exam Neck Exam: Full ROM, Normal Inspection. 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
--- NOTE | 2016-09-16 13:11 | CP.CCUPN ---
CCU Subjective - Physician Review Events Since Last Encounter (Free Text): 09/16/16 12:50 Patient is alert and, persistently agitated and refusing most interventions. CCU Objective - Vital Signs / Intake & Output Vital Signs (Last 4 hours): Vital Signs Temp Pulse Resp BP 09/16/16 12:00 98.1 F 114 H 16 09/16/16 11:52 84 19 120/56 L 09/16/16 11:00 103 H 21 09/16/16 10:52 114 H 19 110/65 09/16/16 10:00 109 H 23 09/16/16 09:52 121 H 17 95/65 L 09/16/16 09:00 107 H 18 09/16/16 08:53 116 H 20 101/62 09/16/16 08:51 109 H 18 88/56 L Intake and Output (Last 8hrs): Intake & Output 09/15/16 09/16/16 09/16/16 22:59 06:59 14:59 Intake Total 995 940 800 Output Total 905 1080 235 Balance 90 -140 565 Intake: Intake, IV Amount 625 700 500 Left Forearm 625 700 500 Oral 370 240 300 Output: Urine 905 1080 235 Urine, Voided 905 1080 235 Other: # Bowel Movements 1 - Physical Exam Head: Positive for: Atraumatic, Normocephalic Pupils: Positive for: PERRL Extroacular Muscles: Positive for: EOMI Mouth: Positive for: Dry Respiratory/Chest: Positive for: Clear to Auscultation, Tachypneic Cardiovascular: Positive for: Tachycardic Abdomen: Positive for: Normal Bowel Sounds Upper Extremity: Positive for: Normal Inspection, NORMAL PULSES. Negative for: Cyanosis, Edema Lower Extremity: Positive for: Normal Inspection, Edema, NORMAL PULSES. Negative for: CALF TENDERNESS Neurological: Positive for: GCS=15, CN II-XII Intact Skin: Positive for: Warm, Dry, Normal Color Psychiatric: Positive for: Alert, Oriented x 3 - Medications Active Medications: Active Medications Generic Name Dose Route Start Last Admin Trade Name Freq PRN Reason Stop Dose Admin Acetylcysteine 4 ml 09/15/16 14:00 09/16/16 07:42 Acetylcysteine 20% INH 4 ml RQ6 [facility] Administration Albuterol/Ipratropium 3 ml 09/15/16 14:00 09/16/16 07:41 Duoneb 3 Mg/0.5 Mg (3 Ml) Ud INH 3 ml RQ6 [facility] Administration Famotidine 20 mg 09/13/16 10:00 09/16/16 10:22 Pepcid PO 20 mg DAILY [facility] Administration Ferrous Sulfate 325 mg 09/13/16 10:00 09/16/16 10:22 Feosol PO 325 mg DAILY [facility] Administration Folic Acid 1 mg 09/13/16 10:00 09/16/16 10:22 Folic Acid PO 1 mg DAILY [facility] Administration Guaifenesin 100 mg 09/12/16 22:31 Robitussin PO Q4H PRN Cough Sodium Bicarbonate 150 meq/ 1,150 mls @ 75 mls/hr 09/15/16 08:00 09/16/16 03: 00 Sodium Chloride IV 75 mls/hr .[id number] [facility] Administration Linezolid 600 mg in 300 mls @ 100 mls/hr 09/15/16 11:00 09/16/16 10:00 Zyvox 600mg/300ml D5w IVPB 100 mls/hr Q12H [facility] Administration Meropenem 500 mg/ Sodium 100 mls @ 100 mls/hr 09/15/16 13:00 09/16/16 04:00 Chloride IVPB 100 mls/hr Q8H [facility] Administration Levothyroxine Sodium 100 mcg 09/13/16 06:30 09/16/16 06:13 Synthroid PO 100 mcg DAILY@0630 [facility] Administration Megestrol Acetate 400 mg 09/13/16 10:45 09/16/16 10:22 Megace PO 400 mg DAILY [facility] Administration Tamsulosin HCl 0.4 mg 09/13/16 10:00 09/16/16 10:22 Flomax PO 0.4 mg DAILY [facility] Administration - Patient Studies Lab Studies: Microbiology Studies 09/15/16 12:00 Blood Culture - Preliminary Blood-Venous NO GROWTH AFTER 24 HOURS 09/15/16 12:00 Blood Culture - Preliminary Blood-Venous NO GROWTH AFTER 24 HOURS 09/15/16 15:30 Gram Stain - Final Sputum Induced Sputum Culture - Preliminary Gram Negative Iban 09/15/16 12:00 Urine Culture - Final Urine,Catheterized No Growth (<1,000 CFU/ML) 09/12/16 22:15 Blood Culture - Preliminary Blood NO GROWTH AFTER 3 DAYS 09/12/16 22:15 Blood Culture - Preliminary Blood NO GROWTH AFTER 3 DAYS Lab Studies 09/15/16 09/15/16 Range/Units 22:22 22:22 WBC 8.5 (4.8-10.8) K/uL RBC 2.91 L (4.40-5.90) Mil/uL Hgb 7.7 L (12.0-18.0) g/dL Hct 25.0 L (35.0-51.0) % MCV 85.8 (80.0-94.0) fL MCH 26.4 L (27.0-31.0) pg MCHC 30.7 L (33.0-37.0) g/dL RDW 13.4 (11.5-14.5) % Plt Count 297 (130-400) K/uL MPV 7.1 L (7.2-11.7) fL Neut % (Auto) 82.5 H (50.0-75.0) % Lymph % (Auto) 7.5 L (20.0-40.0) % [place] % (Auto) 6.3 (0.0-10.0) % Eos % (Auto) 2.1 (0.0-4.0) % Baso % (Auto) 1.6 (0.0-2.0) % Neut # 7.1 H (1.8-7.0) K/uL Lymph # 0.6 L (1.0-4.3) K/uL [place] # 0.5 (0.0-0.8) K/uL Eos # 0.2 (0.0-0.7) K/uL Baso # 0.1 (0.0-0.2) K/uL Neutrophils % (Manual) 75 (50-75) % Band Neutrophils % 1 (0-2) % Lymphocytes % (Manual) 10 L (20-40) % Monocytes % (Manual) 9 (0-10) % Eosinophils % (Manual) 2 (0-4) % Metamyelocytes % 2 H (0-0) % Myelocytes % 1 H (0-0) % Platelet Estimate Normal (NORMAL) RBC Morphology Normal Sodium 143 (132-148) mmol/L Potassium 5.2 (3.6-5.2) mmol/L Chloride 109 H (98-107) mmol/L Carbon Dioxide 20 L (22-30) mmol/L Anion Gap 19 (10-20) BUN 44 H (9-20) mg/dL Creatinine 1.3 (0.8-1.5) MG/DL Est GFR ( Amer) > 60 Est GFR (Non-Af Amer) 53 Random Glucose 111 H (75-110) mg/dL Calcium 7.9 L (8.6-10.4) mg/dl Total Bilirubin 0.6 (0.2-1.3) mg/dL AST 13 L (17-59) U/L ALT 15 L D (21-72) U/L Alkaline Phosphatase 72 (38-126) U/L Total Protein 6.1 L (6.3-8.3) g/dL Albumin 2.8 L (3.5-5.0) g/dL Globulin 3.3 (2.2-3.9) gm/dL Albumin/Globulin Ratio 0.8 L (1.0-2.1) Laboratory Results - last 24 hr 09/15/16 09/15/16 22:22 22:22 WBC 8.5 RBC 2.91 L Hgb 7.7 L Hct 25.0 L MCV 85.8 MCH 26.4 L MCHC 30.7 L RDW 13.4 Plt Count 297 MPV 7.1 L Neut % (Auto) 82.5 H Lymph % (Auto) 7.5 L [place] % (Auto) 6.3 Eos % (Auto) 2.1 Baso % (Auto) 1.6 Neut # 7.1 H Lymph # 0.6 L [place] # 0.5 Eos # 0.2 Baso # 0.1 Neutrophils % (Manual) 75 Band Neutrophils % 1 Lymphocytes % (Manual) 10 L Monocytes % (Manual) 9 Eosinophils % (Manual) 2 Metamyelocytes % 2 H Myelocytes % 1 H Platelet Estimate Normal RBC Morphology Normal Sodium 143 Potassium 5.2 Chloride 109 H Carbon Dioxide 20 L Anion Gap 19 BUN 44 H Creatinine 1.3 Est GFR ( Amer) > 60 Est GFR (Non-Af Amer) 53 Random Glucose 111 H Calcium 7.9 L Total Bilirubin 0.6 AST 13 L ALT 15 L D Alkaline Phosphatase 72 Total Protein 6.1 L Albumin 2.8 L Globulin 3.3 Albumin/Globulin Ratio 0.8 L Review of Systems - Review of Systems Systems not reviewed;Unavailable: Uncooperative Critical Care Progress Note - Nutrition Nutrition: Nutrition Category Date Time Status Heart Healthy Diet [DIET] Diets 09/13/16 Breakfast Active Assessment/Plan (1) Pneumonia Assessment and plan: 86 M with PMHx of COPD, anemia, GI bleed, CHF (last ECHO done at 06/2015 EF 65 %), atrial fibrillation, hypothyroidism, history of colon carcinoma, and 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 Patient was admitted in June for CHF with pneumonia, where he had new onset A-Fib. Neuro: Alert, metabolic encephalopathy secondary to sepsis. Pulm: Persistent left lingular pneumonia, continue duo nebs, mucolytics, antibiotics. Tachypnea as compensatory mechanism for underlying metabolic acidosis. CV: Hemodynamically stable, tachycardic. A. fib self rate controlled, Cardizem by mouth and Midodrine by mouth held for recent hypotension. Hem: No acute issues Renal: High anion gap Metabolic acidosis, lactate normal, possibly secondary to underlying infection. continue hypochloremic fluid 1/2NS+75meq SB@75. Patient may need to be on extended sodium bicarbonate tabs by mouth. Would consult renal. Endo: Hypothyroidism, continue Synthroid. GI: Heart healthy diet, megace for appetite stimulation. ID: Sepsis from pneumonia, started on Zyvox and meropenem. Will panculture. DVT proph - heparin subcutaneous GI proph -Pepcid weber for strict I/O's during acute illness Code status - full code Patient is clinically stable, and refusing most medical interventions, will downgrade to the floor. Patient has underlying moderate dementia goals of care and advanced directives should be addressed with family. Crtical Care Time spent 35 minutes Multi-disciplinary rounds were performed with house staff, nursing, speech therapy, respiratory therapy, pharmacy and nutrition with integrated input from the primary team/attending and other consulting services. The documented time is cumulative and includes review of patient data/exams/labs/chart review and examination of the patient on rounds and throughout the day; time is exclusive of any procedures or teaching time. Current Visit: Yes Status: Acute
--- NOTE | 2016-09-16 16:55 | CP.PCM.PN ---
Subjective - Date & Time of Evaluation Date of Evaluation: 09/16/16 Time of Evaluation: 08:00 - Subjective Subjective: alert/ confused still septic denies chest pain Objective - Vital Signs/Intake and Output Vital Signs (last 24 hours): Temp Pulse Resp BP Pulse Ox 98.1 F 114 H 26 H 131/71 98 09/16/16 12:00 09/16/16 15:00 09/16/16 15:00 09/16/16 14:53 09/15/16 21:00 Intake and Output: 09/16/16 09/16/16 06:59 18:59 Intake Total 1360 1075 Output Total 1485 435 Balance -125 640 - Medications Medications: Current Medications Acetylcysteine (Acetylcysteine 20%) 4 ml INH RQ6 [facility] Last Admin: 09/16/16 14:18 Dose: 4 ml Albuterol/Ipratropium (Duoneb 3 Mg/0.5 Mg (3 Ml) Ud) 3 ml INH RQ6 [facility] Last Admin: 09/16/16 14:18 Dose: 3 ml Famotidine (Pepcid) 20 mg PO DAILY [facility] Last Admin: 09/16/16 10:22 Dose: 20 mg Ferrous Sulfate (Feosol) 325 mg PO DAILY [facility] Last Admin: 09/16/16 10:22 Dose: 325 mg Folic Acid (Folic Acid) 1 mg PO DAILY [facility] Last Admin: 09/16/16 10:22 Dose: 1 mg Guaifenesin (Robitussin) 100 mg PO Q4H PRN PRN Reason: Cough Sodium Bicarbonate 150 meq/ (Sodium Chloride) 1,150 mls @ 75 mls/hr IV .[id number] [facility] Last Admin: 09/16/16 03:00 Dose: 75 mls/hr Linezolid (Zyvox 600mg/300ml D5w) 600 mg in 300 mls @ 100 mls/hr IVPB Q12H [facility] Last Admin: 09/16/16 10:00 Dose: 100 mls/hr Meropenem 500 mg/ Sodium (Chloride) 100 mls @ 100 mls/hr IVPB Q8H [facility] Last Admin: 09/16/16 13:25 Dose: 100 mls/hr Levothyroxine Sodium (Synthroid) 100 mcg PO DAILY@0630 [facility] Last Admin: 09/16/16 06:13 Dose: 100 mcg Megestrol Acetate (Megace) 400 mg PO DAILY [facility] Last Admin: 09/16/16 10:22 Dose: 400 mg Tamsulosin HCl (Flomax) 0.4 mg PO DAILY [facility] Last Admin: 09/16/16 10:22 Dose: 0.4 mg - Labs Labs: 09/15/16 22:22 09/15/16 22:22 PT 13.5 SECONDS (9.7-12.2) H 09/12/16 19:06 INR 1.2 09/12/16 19:06 APTT 28 SECONDS (21-34) 09/12/16 19:06 - Constitutional Appears: Non-toxic, Cachectic, Chronically Ill - Head Exam Head Exam: NORMOCEPHALIC - Eye Exam Eye Exam: PERRL. absent: Scleral icterus - ENT Exam ENT Exam: Mucous Membranes Dry, Normal External Ear Exam, Normal Oropharynx - Neck Exam Neck Exam: absent: Lymphadenopathy - Respiratory Exam Respiratory Exam: Decreased Breath Sounds, Rhonchi - Cardiovascular Exam Cardiovascular Exam: REGULAR RHYTHM, +S1, +S2 - GI/Abdominal Exam GI & Abdominal Exam: Distended, Soft. absent: Tenderness - Rectal Exam Rectal Exam: Deferred - Exam Exam: NORMAL INSPECTION - Extremities Exam Extremities Exam: absent: Pedal Edema - Back Exam Back Exam: absent: CVA tenderness (L), CVA tenderness (R) - Neurological Exam Neurological Exam: Alert, Awake, Oriented x3 Assessment and Plan (1) NOEMI (acute kidney injury) Status: Acute (2) Hypotension Status: Acute (3) Pneumonia Status: Acute (4) Severe dehydration Status: Acute (5) Abdominal pain Status: Acute (6) Rheumatoid arthritis Status: Acute (7) COPD (chronic obstructive pulmonary disease) Status: Chronic (8) Hypertension Status: Chronic (9) Renal insufficiency Status: Chronic
--- NOTE | 2016-09-16 19:07 | CP.PCM.PN ---
Subjective - Date & Time of Evaluation Date of Evaluation: 09/16/16 Time of Evaluation: 17:40 - Subjective Subjective: No complaints but agitated Objective - Vital Signs/Intake and Output Vital Signs (last 24 hours): Temp Pulse Resp BP Pulse Ox 98 F 117 H 27 H 86/58 L 100 09/16/16 16:00 09/16/16 18:00 09/16/16 18:00 09/16/16 17:52 09/16/16 16:00 Intake and Output: 09/16/16 09/17/16 18:59 06:59 Intake Total 2100 Output Total 660 Balance 1440 - Medications Medications: Current Medications Acetylcysteine (Acetylcysteine 20%) 4 ml INH RQ6 [facility] Last Admin: 09/16/16 14:18 Dose: 4 ml Albuterol/Ipratropium (Duoneb 3 Mg/0.5 Mg (3 Ml) Ud) 3 ml INH RQ6 [facility] Last Admin: 09/16/16 14:18 Dose: 3 ml Famotidine (Pepcid) 20 mg PO DAILY [facility] Last Admin: 09/16/16 10:22 Dose: 20 mg Ferrous Sulfate (Feosol) 325 mg PO DAILY [facility] Last Admin: 09/16/16 10:22 Dose: 325 mg Folic Acid (Folic Acid) 1 mg PO DAILY [facility] Last Admin: 09/16/16 10:22 Dose: 1 mg Guaifenesin (Robitussin) 100 mg PO Q4H PRN PRN Reason: Cough Sodium Bicarbonate 150 meq/ (Sodium Chloride) 1,150 mls @ 75 mls/hr IV .[id number] [facility] Last Admin: 09/16/16 03:00 Dose: 75 mls/hr Linezolid (Zyvox 600mg/300ml D5w) 600 mg in 300 mls @ 100 mls/hr IVPB Q12H [facility] Last Admin: 09/16/16 10:00 Dose: 100 mls/hr Meropenem 500 mg/ Sodium (Chloride) 100 mls @ 100 mls/hr IVPB Q8H [facility] Last Admin: 09/16/16 13:25 Dose: 100 mls/hr Levothyroxine Sodium (Synthroid) 100 mcg PO DAILY@0630 [facility] Last Admin: 09/16/16 06:13 Dose: 100 mcg Megestrol Acetate (Megace) 400 mg PO DAILY [facility] Last Admin: 09/16/16 10:22 Dose: 400 mg Tamsulosin HCl (Flomax) 0.4 mg PO DAILY [facility] Last Admin: 09/16/16 10:22 Dose: 0.4 mg - Labs Labs: 09/15/16 22:22 09/15/16 22:22 PT 13.5 SECONDS (9.7-12.2) H 09/12/16 19:06 INR 1.2 09/12/16 19:06 APTT 28 SECONDS (21-34) 09/12/16 19:06 - Head Exam Head Exam: ATRAUMATIC - Eye Exam Eye Exam: Normal appearance - ENT Exam ENT Exam: Mucous Membranes Dry - Respiratory Exam Respiratory Exam: Decreased Breath Sounds - Cardiovascular Exam Cardiovascular Exam: +S1, +S2 - GI/Abdominal Exam GI & Abdominal Exam: Normal Bowel Sounds - Extremities Exam Extremities Exam: Normal Inspection Assessment and Plan (1) Anemia Assessment & Plan: chronic disease transfusion support PRN Status: Acute (2) Colon cancer Assessment & Plan: s/p surgery lung lesions suspicious for metastatic malignancy despite past biopsy showing organizing pneumonia Status: Acute
[2016-09-17] MEDS: Acetylcysteine 20% Inhal Soln (4ml) INH SCH ×4 (01:13→19:47)
[2016-09-17] MEDS: Albuterol-Ipratrop 3 mg / 0.5 (3 ml) UD INH SCH ×4 (01:13→19:47)
[2016-09-17] MEDS: Meropenem 500 MG in Sodium Chloride 0.9% 100 ML IVPB SCH ×3 (04:15→20:15)
[2016-09-17] MEDS: Levothyroxine 100 MCG TAB PO SCH (06:12)
[2016-09-17 06:26] LABS: BASO # 0.1 K/uL (0.0-0.2); EOS # 0.4 K/uL (0.0-0.7); EOS % 3.9 % (0.0-4.0); HEMATOCRIT 23.1 % (35.0-51.0); LYMPH # 0.8 K/uL (1.0-4.3); LYMPH % 8.1 % (20.0-40.0); MEAN CELL VOLUME 84.4 fL (80.0-94.0); MEAN CORPUSCULAR HEMOGLOBIN 26.9 pg (27.0-31.0); MEAN CORPUSCULAR HGB CONC 31.8 g/dL (33.0-37.0); MEAN PLATELET VOLUME 6.7 fL (7.2-11.7); MONO # 0.7 K/uL (0.0-0.8); MONO % 7.1 % (0.0-10.0); PLATELET COUNT 280 K/uL (130-400); RED CELL DISTRIBUTION WIDTH 13.5 % (11.5-14.5); WHITE BLOOD COUNT 10.2 K/uL (4.8-10.8)
[2016-09-17 06:38] LABS: CHLORIDE 105 mmol/L (98-107); SODIUM 139 mmol/L (132-148)
[2016-09-17 06:39] LABS: POTASSIUM 5.6 mmol/L (3.6-5.2)
[2016-09-17 06:40] LABS: GFR AFRICAN-AMERICAN > 60
[2016-09-17 06:41] LABS: ALB/GLOB RATIO 0.8 (1.0-2.1); ALKALINE PHOSPHATASE 74 U/L (38-126); ALT/SGPT 26 U/L (21-72); AST/SGOT 10 U/L (17-59); BILIRUBIN,TOTAL < 0.1 mg/dL (0.2-1.3); BLOOD UREA NITROGEN 38 mg/dL (9-20); CARBON DIOXIDE 26 mmol/L (22-30); GLUCOSE,RANDOM 85 mg/dL (75-110); PHOSPHOROUS 1.9 mg/dL (2.5-4.5); TOTAL PROTEIN 5.3 g/dL (6.3-8.3)
[2016-09-17 06:42] LABS: CALCIUM 7.6 mg/dl (8.6-10.4); MAGNESIUM 1.6 mg/dL (1.6-2.3)
--- NOTE | 2016-09-17 07:28 | PN ---
DATE: 09/16/2016 The patient is complaining of weakness, fatigue, confusion, shortness of breath. The patient will ge t bedrest, supportive care, IV hydration, bronchodilator. Finn Manning MD cc: [id number] TT: 09/16/2016 13:40:46 Confirmation # [id number] Dictation # [id number]
[2016-09-17 08:53] LABS: MYELOCYTE 1 % (0-0); TOTAL CELLS COUNTED 100
[2016-09-17 08:54] LABS: EOSINOPHIL 1 % (0-4); NEUTROPHIL 86 % (50-75)
[2016-09-17] MEDS: Megestrol Acetate 40 mg/ml Cup PO SCH (10:01)
[2016-09-17] MEDS: Linezolid 600 mg in D5W 300 ml 600 MG/300 ML BAG IVPB SCH ×2 (10:02→22:17)
--- NOTE | 2016-09-17 10:07 | CARD ---
APPROVED REPORT EKG Measurement Heart [id number] CA [id number] [id number] <Conclusion> Sinus tachycardia Otherwise normal ECG
--- NOTE | 2016-09-17 11:00 | PN ---
DATE: 09/17/2016 The patient is still confused. Shortness of breath at rest. He is receiving oxygen, bronchodilators , ____ prognosis guarded. Finn Manning MD cc: [id number] TT: 09/17/2016 10:52:41 Confirmation # [id number] Dictation # [id number]
--- NOTE | 2016-09-17 12:42 | CP.PCM.PN ---
Subjective - Date & Time of Evaluation Date of Evaluation: 09/17/16 Time of Evaluation: 09:00 - Subjective Subjective: Patient is asking for mittens to be removed. Sputum and urine C&S positive. Zyvox and Merrem IV on board. Objective - Vital Signs/Intake and Output Vital Signs (last 24 hours): Temp Pulse Resp BP Pulse Ox 97.5 F L 110 H 19 116/61 100 09/17/16 12:00 09/17/16 12:00 09/17/16 12:00 09/17/16 12:00 09/17/16 12:00 Intake and Output: 09/17/16 09/17/16 06:59 18:59 Intake Total 1050 725 Output Total 1200 Balance -150 725 - Medications Medications: Current Medications Acetylcysteine (Acetylcysteine 20%) 4 ml INH RQ6 [facility] Last Admin: 09/17/16 07:29 Dose: 4 ml Albuterol/Ipratropium (Duoneb 3 Mg/0.5 Mg (3 Ml) Ud) 3 ml INH RQ6 [facility] Last Admin: 09/17/16 07:29 Dose: 3 ml Famotidine (Pepcid) 20 mg PO DAILY [facility] Last Admin: 09/17/16 10:02 Dose: 20 mg Ferrous Sulfate (Feosol) 325 mg PO DAILY [facility] Last Admin: 09/17/16 10:02 Dose: 325 mg Folic Acid (Folic Acid) 1 mg PO DAILY [facility] Last Admin: 09/17/16 10:02 Dose: 1 mg Guaifenesin (Robitussin) 100 mg PO Q4H PRN PRN Reason: Cough Sodium Bicarbonate 150 meq/ (Sodium Chloride) 1,150 mls @ 75 mls/hr IV .[id number] [facility] Last Admin: 09/17/16 05:30 Dose: 75 mls/hr Linezolid (Zyvox 600mg/300ml D5w) 600 mg in 300 mls @ 100 mls/hr IVPB Q12H [facility] Last Admin: 09/17/16 10:02 Dose: 100 mls/hr Meropenem 500 mg/ Sodium (Chloride) 100 mls @ 100 mls/hr IVPB Q8H [facility] Last Admin: 09/17/16 04:15 Dose: 100 mls/hr Levothyroxine Sodium (Synthroid) 100 mcg PO DAILY@0630 [facility] Last Admin: 09/17/16 06:12 Dose: 100 mcg Megestrol Acetate (Megace) 400 mg PO DAILY [facility] Last Admin: 09/17/16 10:01 Dose: 400 mg Tamsulosin HCl (Flomax) 0.4 mg PO DAILY [facility] Last Admin: 09/17/16 10:04 Dose: 0.4 mg - Labs Labs: 09/17/16 06:18 09/17/16 06:17 PT 13.5 SECONDS (9.7-12.2) H 09/12/16 19:06 INR 1.2 09/12/16 19:06 APTT 28 SECONDS (21-34) 09/12/16 19:06 - Constitutional Appears: No Acute Distress, Chronically Ill - Head Exam Head Exam: ATRAUMATIC, NORMAL INSPECTION, NORMOCEPHALIC - Eye Exam Eye Exam: Normal appearance, PERRL Pupil Exam: NORMAL ACCOMODATION, PERRL - ENT Exam ENT Exam: Mucous Membranes Moist, Normal Exam - Neck Exam Neck Exam: Full ROM, Normal Inspection - Respiratory Exam Respiratory Exam: Decreased Breath Sounds, NORMAL BREATHING PATTERN - Cardiovascular Exam Cardiovascular Exam: Tachycardia, REGULAR RHYTHM, +S1, +S2 - GI/Abdominal Exam GI & Abdominal Exam: Hypoactive Bowel Sounds, Normal Bowel Sounds - Rectal Exam Rectal Exam: Deferred - Exam Exam: NORMAL INSPECTION - Extremities Exam Extremities Exam: Full ROM, Normal Capillary Refill, Normal Inspection - Back Exam Back Exam: NORMAL INSPECTION - Neurological Exam Neurological Exam: Alert Neuro motor strength exam: Left Upper Extremity: 2/1, Right Upper Extremity: 2/1 , Left Lower Extremity: 2/1, Right Lower Extremity: 2/1 - Skin Skin Exam: Normal Color, Warm Assessment and Plan - Assessment and Plan (Free Text) Assessment: Patient examined in bed in no acute distress. Mittens on. Patient is alert, fallow commends, able to make basic needs known. Speech is mumbled. Patient swallows well. Patient is missing upper dentures and prefers soft food only. As per nursing, patient has been refusing food and care. Patient took two orange juices from or. Patient is agitated and is asking for the mittens to be removed. HR 110. O2Sat 100% NC. There are ronchis on auscultation and occasional moist cough. Sputum C& S positive E jass. Patient is afebrile. I discussed patient's clinical presentation with nursing and case management. We agreed that patient is chronically ill, stable at present in no acute distress and able to return back to [facility]. I called patient's daughter Oneyda to discuss further goals of care and left voice mail. Patient was seen by Doctor Vlad for right lung mass. Prognosis was deemed guarded. I will suggest patient's daughter DNR/DNI status for this patient. 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 Prognosis seen as guarded * Patient has mild shortness of breath, but saturates at 100% on NC * Patient is agitated , with mild confusion, alert enough to fallow commends and ask simple questions * I feel that patient feels restricted by the ICU environment and safety measures what is causing his agitation. * Positive sputum and urine culture , needing IV Tx * Code status not defined yet Suggestion * DNR/ DNI would be appropriate level of care for this patient ( discussed once with daughter, needs to be confirmed) * Would consider PICC line * * Transfer patient back to [facility] for completion of IV Tx and long-term care. Patient would feel less agitated in the familiar surrounding * Soft food, patient likes fruit cups, massed potato and pasta
--- NOTE | 2016-09-17 13:08 | CP.PCM.PN ---
Subjective - Date & Time of Evaluation Date of Evaluation: 09/17/16 Time of Evaluation: 08:00 - Subjective Subjective: iv merrem in progress esbl e coli in sputum, Objective - Vital Signs/Intake and Output Vital Signs (last 24 hours): Temp Pulse Resp BP Pulse Ox 97.5 F L 110 H 19 116/61 100 09/17/16 12:00 09/17/16 12:00 09/17/16 12:00 09/17/16 12:00 09/17/16 12:00 Intake and Output: 09/17/16 09/17/16 06:59 18:59 Intake Total 1050 725 Output Total 1200 Balance -150 725 - Medications Medications: Current Medications Acetylcysteine (Acetylcysteine 20%) 4 ml INH RQ6 [facility] Last Admin: 09/17/16 07:29 Dose: 4 ml Albuterol/Ipratropium (Duoneb 3 Mg/0.5 Mg (3 Ml) Ud) 3 ml INH RQ6 [facility] Last Admin: 09/17/16 07:29 Dose: 3 ml Famotidine (Pepcid) 20 mg PO DAILY [facility] Last Admin: 09/17/16 10:02 Dose: 20 mg Ferrous Sulfate (Feosol) 325 mg PO DAILY [facility] Last Admin: 09/17/16 10:02 Dose: 325 mg Folic Acid (Folic Acid) 1 mg PO DAILY [facility] Last Admin: 09/17/16 10:02 Dose: 1 mg Guaifenesin (Robitussin) 100 mg PO Q4H PRN PRN Reason: Cough Linezolid (Zyvox 600mg/300ml D5w) 600 mg in 300 mls @ 100 mls/hr IVPB Q12H [facility] Last Admin: 09/17/16 10:02 Dose: 100 mls/hr Meropenem 500 mg/ Sodium (Chloride) 100 mls @ 100 mls/hr IVPB Q8H [facility] Last Admin: 09/17/16 04:15 Dose: 100 mls/hr Levothyroxine Sodium (Synthroid) 100 mcg PO DAILY@0630 [facility] Last Admin: 09/17/16 06:12 Dose: 100 mcg Megestrol Acetate (Megace) 400 mg PO DAILY [facility] Last Admin: 09/17/16 10:01 Dose: 400 mg Sodium Bicarbonate (Sodium Bicarbonate Tab) 650 mg PO TID [facility] Tamsulosin HCl (Flomax) 0.4 mg PO DAILY [facility] Last Admin: 09/17/16 10:04 Dose: 0.4 mg - Labs Labs: 09/17/16 06:18 09/17/16 06:17 PT 13.5 SECONDS (9.7-12.2) H 09/12/16 19:06 INR 1.2 09/12/16 19:06 APTT 28 SECONDS (21-34) 09/12/16 19:06 - Constitutional Appears: Cachectic, Chronically Ill - Eye Exam Eye Exam: PERRL. absent: Scleral icterus - ENT Exam ENT Exam: Mucous Membranes Dry - Neck Exam Neck Exam: absent: Lymphadenopathy - Respiratory Exam Respiratory Exam: Decreased Breath Sounds, Rhonchi - Cardiovascular Exam Cardiovascular Exam: REGULAR RHYTHM, +S1, +S2 - GI/Abdominal Exam GI & Abdominal Exam: Distended, Soft. absent: Tenderness - Rectal Exam Rectal Exam: Deferred - Exam Exam: NORMAL INSPECTION - Extremities Exam Extremities Exam: absent: Pedal Edema - Back Exam Back Exam: absent: CVA tenderness (L), CVA tenderness (R) - Neurological Exam Neurological Exam: Alert, Altered, Awake Assessment and Plan (1) NOEMI (acute kidney injury) Status: Acute (2) Hypotension Status: Acute (3) Pneumonia Status: Acute (4) Severe dehydration Status: Acute (5) Abdominal pain Status: Acute (6) Rheumatoid arthritis Status: Acute (7) COPD (chronic obstructive pulmonary disease) Status: Chronic (8) Hypertension Status: Chronic (9) Renal insufficiency Status: Chronic
--- NOTE | 2016-09-17 14:09 | CP.PCM.PN ---
Subjective - Date & Time of Evaluation Date of Evaluation: 09/17/16 Time of Evaluation: 15:20 - Subjective Subjective: clinically same Objective - Vital Signs/Intake and Output Vital Signs (last 24 hours): Temp Pulse Resp BP Pulse Ox 97.5 F L 110 H 19 116/61 100 09/17/16 12:00 09/17/16 12:00 09/17/16 12:00 09/17/16 12:00 09/17/16 12:00 Intake and Output: 09/17/16 09/17/16 06:59 18:59 Intake Total 1050 925 Output Total 1200 Balance -150 925 - Medications Medications: Current Medications Acetylcysteine (Acetylcysteine 20%) 4 ml INH RQ6 [facility] Last Admin: 09/17/16 13:12 Dose: 4 ml Albuterol/Ipratropium (Duoneb 3 Mg/0.5 Mg (3 Ml) Ud) 3 ml INH RQ6 [facility] Last Admin: 09/17/16 13:12 Dose: 3 ml Famotidine (Pepcid) 20 mg PO DAILY [facility] Last Admin: 09/17/16 10:02 Dose: 20 mg Ferrous Sulfate (Feosol) 325 mg PO DAILY [facility] Last Admin: 09/17/16 10:02 Dose: 325 mg Folic Acid (Folic Acid) 1 mg PO DAILY [facility] Last Admin: 09/17/16 10:02 Dose: 1 mg Guaifenesin (Robitussin) 100 mg PO Q4H PRN PRN Reason: Cough Linezolid (Zyvox 600mg/300ml D5w) 600 mg in 300 mls @ 100 mls/hr IVPB Q12H [facility] Last Admin: 09/17/16 10:02 Dose: 100 mls/hr Meropenem 500 mg/ Sodium (Chloride) 100 mls @ 100 mls/hr IVPB Q8H [facility] Last Admin: 09/17/16 13:16 Dose: 100 mls/hr Levothyroxine Sodium (Synthroid) 100 mcg PO DAILY@0630 [facility] Last Admin: 09/17/16 06:12 Dose: 100 mcg Megestrol Acetate (Megace) 400 mg PO DAILY [facility] Last Admin: 09/17/16 10:01 Dose: 400 mg Sodium Bicarbonate (Sodium Bicarbonate Tab) 650 mg PO TID [facility] Tamsulosin HCl (Flomax) 0.4 mg PO DAILY [facility] Last Admin: 09/17/16 10:04 Dose: 0.4 mg - Labs Labs: 09/17/16 06:18 09/17/16 06:17 PT 13.5 SECONDS (9.7-12.2) H 09/12/16 19:06 INR 1.2 09/12/16 19:06 APTT 28 SECONDS (21-34) 09/12/16 19:06 - Constitutional Appears: Well - Head Exam Head Exam: ATRAUMATIC, NORMAL INSPECTION, NORMOCEPHALIC - Eye Exam Eye Exam: EOMI, Normal appearance, PERRL Pupil Exam: NORMAL ACCOMODATION, PERRL - ENT Exam ENT Exam: Mucous Membranes Moist, Normal Exam - Neck Exam Neck Exam: Full ROM, Normal Inspection. 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
[2016-09-17] MEDS ORDERED: Epoetin Alfa Dialysis 20000 UNIT/ML Inj SC ONE (20:59)
--- NOTE | 2016-09-17 21:00 | CP.PCM.PN ---
Subjective - Date & Time of Evaluation Date of Evaluation: 09/17/16 Time of Evaluation: 20:20 - Subjective Subjective: Appears comfortable but agitated at times Objective - Vital Signs/Intake and Output Vital Signs (last 24 hours): Temp Pulse Resp BP Pulse Ox 97.5 F L 110 H 22 128/79 4 L 09/17/16 12:00 09/17/16 16:00 09/17/16 16:00 09/17/16 16:00 09/17/16 16:00 Intake and Output: 09/17/16 09/18/16 18:59 06:59 Intake Total 975 Balance 975 - Medications Medications: Current Medications Acetylcysteine (Acetylcysteine 20%) 4 ml INH RQ6 [facility] Last Admin: 09/17/16 19:47 Dose: 4 ml Albuterol/Ipratropium (Duoneb 3 Mg/0.5 Mg (3 Ml) Ud) 3 ml INH RQ6 [facility] Last Admin: 09/17/16 19:47 Dose: 3 ml Famotidine (Pepcid) 20 mg PO DAILY [facility] Last Admin: 09/17/16 10:02 Dose: 20 mg Ferrous Sulfate (Feosol) 325 mg PO DAILY [facility] Last Admin: 09/17/16 10:02 Dose: 325 mg Folic Acid (Folic Acid) 1 mg PO DAILY [facility] Last Admin: 09/17/16 10:02 Dose: 1 mg Guaifenesin (Robitussin) 100 mg PO Q4H PRN PRN Reason: Cough Linezolid (Zyvox 600mg/300ml D5w) 600 mg in 300 mls @ 100 mls/hr IVPB Q12H [facility] Last Admin: 09/17/16 10:02 Dose: 100 mls/hr Meropenem 500 mg/ Sodium (Chloride) 100 mls @ 100 mls/hr IVPB Q8H [facility] Last Admin: 09/17/16 20:15 Dose: 100 mls/hr Levothyroxine Sodium (Synthroid) 100 mcg PO DAILY@0630 [facility] Last Admin: 09/17/16 06:12 Dose: 100 mcg Megestrol Acetate (Megace) 400 mg PO DAILY [facility] Last Admin: 09/17/16 10:01 Dose: 400 mg Sodium Bicarbonate (Sodium Bicarbonate Tab) 650 mg PO TID [facility] Last Admin: 09/17/16 17:55 Dose: 650 mg Tamsulosin HCl (Flomax) 0.4 mg PO DAILY [facility] Last Admin: 09/17/16 10:04 Dose: 0.4 mg - Labs Labs: 09/17/16 06:18 09/17/16 06:17 PT 13.5 SECONDS (9.7-12.2) H 09/12/16 19:06 INR 1.2 09/12/16 19:06 APTT 28 SECONDS (21-34) 09/12/16 19:06 - Head Exam Head Exam: ATRAUMATIC - Eye Exam Eye Exam: Normal appearance - ENT Exam ENT Exam: Mucous Membranes Dry - Respiratory Exam Respiratory Exam: Decreased Breath Sounds - Cardiovascular Exam Cardiovascular Exam: +S1, +S2 - GI/Abdominal Exam GI & Abdominal Exam: Normal Bowel Sounds Assessment and Plan (1) Anemia Assessment & Plan: anemia of chronic disease will give Procrit today in attempt to decrease transfusion dependence Status: Acute (2) 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
[2016-09-18] MEDS: Acetylcysteine 20% Inhal Soln (4ml) INH SCH ×4 (02:33→20:12)
[2016-09-18] MEDS: Albuterol-Ipratrop 3 mg / 0.5 (3 ml) UD INH SCH ×4 (02:34→20:12)
[2016-09-18] MEDS: Meropenem 500 MG in Sodium Chloride 0.9% 100 ML IVPB SCH ×3 (05:02→20:55)
[2016-09-18] MEDS: Levothyroxine 100 MCG TAB PO SCH (06:05)
[2016-09-18 06:47] LABS: CHLORIDE 105 mmol/L (98-107)
[2016-09-18 06:48] LABS: BASO # 0.1 K/uL (0.0-0.2); EOS # 0.3 K/uL (0.0-0.7); EOS % 2.6 % (0.0-4.0); LYMPH % 8.4 % (20.0-40.0); MEAN CELL VOLUME 84.9 fL (80.0-94.0); MEAN CORPUSCULAR HEMOGLOBIN 26.5 pg (27.0-31.0); MEAN CORPUSCULAR HGB CONC 31.2 g/dL (33.0-37.0); MONO # 0.7 K/uL (0.0-0.8); MONO % 6.1 % (0.0-10.0); NRBC % 0.1 % (0.0-2.0); PLATELET COUNT 298 K/uL (130-400); RED CELL DISTRIBUTION WIDTH 13.5 % (11.5-14.5); WHITE BLOOD COUNT 12.2 K/uL (4.8-10.8)
[2016-09-18 06:48] LABS: POTASSIUM 5.9 mmol/L (3.6-5.2); SODIUM 135 mmol/L (132-148)
[2016-09-18 06:50] LABS: ALB/GLOB RATIO 0.7 (1.0-2.1); ALKALINE PHOSPHATASE 84 U/L (38-126); AST/SGOT 14 U/L (17-59); BILIRUBIN,TOTAL < 0.1 mg/dL (0.2-1.3); CARBON DIOXIDE 20 mmol/L (22-30); GFR AFRICAN-AMERICAN 58; TOTAL PROTEIN 6.2 g/dL (6.3-8.3)
[2016-09-18 06:51] LABS: ALT/SGPT 25 U/L (21-72); BLOOD UREA NITROGEN 34 mg/dL (9-20); CALCIUM 8.4 mg/dl (8.6-10.4); GLUCOSE,RANDOM 81 mg/dL (75-110); MAGNESIUM 1.6 mg/dL (1.6-2.3); PHOSPHOROUS 2.2 mg/dL (2.5-4.5)
[2016-09-18 09:31] LABS: EOSINOPHIL 3 % (0-4); NEUTROPHIL 85 % (50-75); TOTAL CELLS COUNTED 100
[2016-09-18] MEDS: Megestrol Acetate 40 mg/ml Cup PO SCH (09:40)
--- NOTE | 2016-09-18 10:19 | CP.PCM.PN ---
Subjective - Date & Time of Evaluation Date of Evaluation: 09/18/16 Time of Evaluation: 10:00 - Subjective Subjective: remains lethargic and bed bound in ICU all entries reviewed labs reviewed Has ESBL + organism in sputum Objective - Vital Signs/Intake and Output Vital Signs (last 24 hours): Temp Pulse Resp BP Pulse Ox 98 F 88 21 140/85 100 09/18/16 08:00 09/18/16 08:00 09/18/16 08:00 09/18/16 08:00 09/18/16 08:00 Intake and Output: 09/18/16 09/18/16 06:59 18:59 Intake Total 1020 Output Total 1001 Balance 19 - Medications Medications: Current Medications Acetylcysteine (Acetylcysteine 20%) 4 ml INH RQ6 [facility] Last Admin: 09/18/16 08:52 Dose: 4 ml Albuterol/Ipratropium (Duoneb 3 Mg/0.5 Mg (3 Ml) Ud) 3 ml INH RQ6 [facility] Last Admin: 09/18/16 08:52 Dose: 3 ml Famotidine (Pepcid) 20 mg PO DAILY [facility] Last Admin: 09/18/16 09:40 Dose: 20 mg Ferrous Sulfate (Feosol) 325 mg PO DAILY [facility] Last Admin: 09/18/16 09:40 Dose: 325 mg Folic Acid (Folic Acid) 1 mg PO DAILY [facility] Last Admin: 09/18/16 09:40 Dose: 1 mg Guaifenesin (Robitussin) 100 mg PO Q4H PRN PRN Reason: Cough Linezolid (Zyvox 600mg/300ml D5w) 600 mg in 300 mls @ 100 mls/hr IVPB Q12H [facility] Last Admin: 09/17/16 22:17 Dose: 100 mls/hr Meropenem 500 mg/ Sodium (Chloride) 100 mls @ 100 mls/hr IVPB Q8H [facility] Last Admin: 09/18/16 05:02 Dose: 100 mls/hr Levothyroxine Sodium (Synthroid) 100 mcg PO DAILY@0630 [facility] Last Admin: 09/18/16 06:05 Dose: 100 mcg Megestrol Acetate (Megace) 400 mg PO DAILY [facility] Last Admin: 09/18/16 09:40 Dose: 400 mg Sodium Bicarbonate (Sodium Bicarbonate Tab) 650 mg PO TID [facility] Last Admin: 09/18/16 09:40 Dose: 650 mg Tamsulosin HCl (Flomax) 0.4 mg PO DAILY [facility] Last Admin: 09/18/16 09:40 Dose: 0.4 mg - Labs Labs: 09/18/16 06:43 09/18/16 06:04 PT 13.5 SECONDS (9.7-12.2) H 09/12/16 19:06 INR 1.2 09/12/16 19:06 APTT 28 SECONDS (21-34) 09/12/16 19:06 - Constitutional Appears: Confused, Cachectic, Chronically Ill - Head Exam Head Exam: NORMOCEPHALIC - Eye Exam Eye Exam: PERRL. absent: Scleral icterus - ENT Exam ENT Exam: Mucous Membranes Dry, Normal External Ear Exam - Neck Exam Neck Exam: absent: Lymphadenopathy - Respiratory Exam Respiratory Exam: Decreased Breath Sounds, Rhonchi - Cardiovascular Exam Cardiovascular Exam: REGULAR RHYTHM, +S1, +S2 - GI/Abdominal Exam GI & Abdominal Exam: Distended, Soft. absent: Tenderness - Rectal Exam Rectal Exam: Deferred - Exam Exam: NORMAL INSPECTION - Extremities Exam Extremities Exam: absent: Pedal Edema - Back Exam Back Exam: absent: CVA tenderness (L), CVA tenderness (R) - Neurological Exam Neurological Exam: Altered Neuro motor strength exam: Left Upper Extremity: 2/1, Right Upper Extremity: 2/1 , Left Lower Extremity: 2/1, Right Lower Extremity: 2/1 - Psychiatric Exam Psychiatric exam: Flat Affect - Skin Skin Exam: Intact Assessment and Plan (1) NOEMI (acute kidney injury) Status: Acute (2) Hypotension Status: Acute (3) Pneumonia Status: Acute (4) Severe dehydration Status: Acute (5) Abdominal pain Status: Acute (6) Rheumatoid arthritis Status: Acute (7) COPD (chronic obstructive pulmonary disease) Status: Chronic (8) Hypertension Status: Chronic (9) Renal insufficiency Status: Chronic - Assessment and Plan (Free Text) Assessment: sepsis / pneumonia / resp failure hx of GI malignancy x2 cont iv antibiotics
--- NOTE | 2016-09-18 10:27 | CARD ---
APPROVED REPORT EXAM: Two-dimensional and M-mode echocardiogram with Doppler and color Doppler. Other Information Quality : Technically LimitedRhythm : INDICATION Dyspnea COPD CKD, RISK FACTORS Hypertension M-Mode DIMENSIONS RVDd1.41 (2.1-3.2cm)Left Atrium (MM)2.11 (2.5-4.0cm) IVSd1.09 (0.7-1.1cm)Aortic Root2.54 (2.2-3.7cm) LVDd4.72 (4.0-5.6cm)Aortic Cusp Exc.1.41 (1.5-2.0cm) PWd1.33 (0.7-1.1cm)FS (%) 17 % LVDs3.94 (2.0-3.8cm)LVEF (%)35 (>50%) Aortic Valve AoV Peak Foehwceg520.5cm/Osman Peak GR.5mmHg Mitral Valve MV E Prbkpklg24.5cm/sMV A Ahazczuo376.1cm/sE/A ratio0.7 TDI E/Lateral E'0.0E/Medial E'0.0 Tricuspid Valve TR Peak Vtqguewn166zp/sTR Peak Gr.[id number] LEFT VENTRICLE The left ventricle is normal size. There is mild asymmetric left ventricular hypertrophy. The Ejection Fraction is 45-50%. No regional wall motion abnormalities noted. The left ventricular diastolic function is normal. No left ventricle thrombus noted on this study. There is no ventricular septal defect visualized. There is no left ventricular aneurysm. There is no mass noted in the left ventricle. RIGHT VENTRICLE The right ventricle is normal size. There is normal right ventricular wall thickness. The right ventricular systolic function is normal. ATRIA The left atrium size is normal. The right atrium size is normal. The interatrial septum is intact with no evidence for an atrial septal defect. AORTIC VALVE The aortic valve is normal in structure and function. No aortic regurgitation is present. There is no aortic valvular stenosis. There is no aortic valvular vegetation. MITRAL VALVE The mitral valve is normal in structure and function. There is no evidence of mitral valve prolapse. There is no mitral valve stenosis. There is no mitral valve regurgitation noted. TRICUSPID VALVE The tricuspid valve is normal in structure and function. There is trace to mild tricuspid regurgitation. Right ventricular systolic pressure is estimated at 30-40 mmHg. There is mild pulmonary hypertension. There is no tricuspid valve prolapse or vegetation. There is no tricuspid valve stenosis. PULMONIC VALVE The pulmonary valve is normal in structure and function. There is no pulmonic valvular regurgitation. There is no pulmonic valvular stenosis. GREAT VESSELS The aortic root is normal in size. The ascending aorta is normal in size. The pulmonary artery is normal. The IVC is normal in size and collapses >50% with inspiration. PERICARDIAL EFFUSION The pericardium appears normal. There is no pleural effusion. <Conclusion> The left ventricle is normal size. There is mild asymmetric left ventricular hypertrophy. The Ejection Fraction is 45-50%. Right ventricular systolic pressure is estimated at 30-40 mmHg. There is trace to mild tricuspid regurgitation.
[2016-09-18] MEDS: Linezolid 600 mg in D5W 300 ml 600 MG/300 ML BAG IVPB SCH ×2 (11:19→22:49)
--- NOTE | 2016-09-18 16:17 | CP.PCM.PN ---
Subjective - Date & Time of Evaluation Date of Evaluation: 09/18/16 Time of Evaluation: 16:00 - Subjective Subjective: clinically same Objective - Vital Signs/Intake and Output Vital Signs (last 24 hours): Temp Pulse Resp BP Pulse Ox 97.3 F L 90 15 141/79 100 09/18/16 12:00 09/18/16 12:00 09/18/16 12:00 09/18/16 12:00 09/18/16 12:00 Intake and Output: 09/18/16 09/18/16 06:59 18:59 Intake Total 1020 240 Output Total 1001 150 Balance 19 90 - Medications Medications: Current Medications Acetylcysteine (Acetylcysteine 20%) 4 ml INH RQ6 [facility] Last Admin: 09/18/16 13:58 Dose: 4 ml Albuterol/Ipratropium (Duoneb 3 Mg/0.5 Mg (3 Ml) Ud) 3 ml INH RQ6 [facility] Last Admin: 09/18/16 13:58 Dose: 3 ml Famotidine (Pepcid) 20 mg PO DAILY [facility] Last Admin: 09/18/16 09:40 Dose: 20 mg Ferrous Sulfate (Feosol) 325 mg PO DAILY [facility] Last Admin: 09/18/16 09:40 Dose: 325 mg Folic Acid (Folic Acid) 1 mg PO DAILY [facility] Last Admin: 09/18/16 09:40 Dose: 1 mg Guaifenesin (Robitussin) 100 mg PO Q4H PRN PRN Reason: Cough Linezolid (Zyvox 600mg/300ml D5w) 600 mg in 300 mls @ 100 mls/hr IVPB Q12H [facility] Last Admin: 09/18/16 11:19 Dose: 100 mls/hr Meropenem 500 mg/ Sodium (Chloride) 100 mls @ 100 mls/hr IVPB Q8H [facility] Last Admin: 09/18/16 13:26 Dose: 100 mls/hr Levothyroxine Sodium (Synthroid) 100 mcg PO DAILY@0630 [facility] Last Admin: 09/18/16 06:05 Dose: 100 mcg Megestrol Acetate (Megace) 400 mg PO DAILY [facility] Last Admin: 09/18/16 09:40 Dose: 400 mg Sodium Bicarbonate (Sodium Bicarbonate Tab) 650 mg PO TID [facility] Last Admin: 09/18/16 13:28 Dose: 650 mg Tamsulosin HCl (Flomax) 0.4 mg PO DAILY [facility] Last Admin: 09/18/16 09:40 Dose: 0.4 mg - Labs Labs: 09/18/16 06:43 09/18/16 06:04 PT 13.5 SECONDS (9.7-12.2) H 09/12/16 19:06 INR 1.2 09/12/16 19:06 APTT 28 SECONDS (21-34) 09/12/16 19:06 - Constitutional Appears: Well - Head Exam Head Exam: ATRAUMATIC, NORMAL INSPECTION, NORMOCEPHALIC - Eye Exam Eye Exam: EOMI, Normal appearance, PERRL Pupil Exam: NORMAL ACCOMODATION, PERRL - ENT Exam ENT Exam: Mucous Membranes Moist, Normal Exam - Neck Exam Neck Exam: Full ROM, Normal Inspection. absent: Lymphadenopathy - Respiratory Exam Respiratory Exam: Decreased Breath Sounds - Cardiovascular Exam Cardiovascular Exam: REGULAR RHYTHM, +S1, +S2 - GI/Abdominal Exam GI & Abdominal Exam: Soft, Diminished Bowel Sounds - Rectal Exam Rectal Exam: Deferred Assessment and Plan - Assessment and Plan (Free Text) Plan: Follow-up student development dean Follow-up ID Follow-up Minesweeping Officer Follow-up supervisor net making Follow-up hem/onc Culture and sensitivity is positive IV Zyvox and IV Merrem and IV antibiotic Follow-up with labs
--- NOTE | 2016-09-18 17:11 | CP.PCM.PN ---
Subjective - Date & Time of Evaluation Date of Evaluation: 09/18/16 Time of Evaluation: 16:35 - Subjective Subjective: Fatigued with periods of agitation Objective - Vital Signs/Intake and Output Vital Signs (last 24 hours): Temp Pulse Resp BP Pulse Ox 97.3 F L 90 15 141/79 100 09/18/16 12:00 09/18/16 12:00 09/18/16 12:00 09/18/16 12:00 09/18/16 12:00 Intake and Output: 09/18/16 09/18/16 06:59 18:59 Intake Total 1020 240 Output Total 1001 150 Balance 19 90 - Medications Medications: Current Medications Acetylcysteine (Acetylcysteine 20%) 4 ml INH RQ6 [facility] Last Admin: 09/18/16 13:58 Dose: 4 ml Albuterol/Ipratropium (Duoneb 3 Mg/0.5 Mg (3 Ml) Ud) 3 ml INH RQ6 [facility] Last Admin: 09/18/16 13:58 Dose: 3 ml Famotidine (Pepcid) 20 mg PO DAILY [facility] Last Admin: 09/18/16 09:40 Dose: 20 mg Ferrous Sulfate (Feosol) 325 mg PO DAILY [facility] Last Admin: 09/18/16 09:40 Dose: 325 mg Folic Acid (Folic Acid) 1 mg PO DAILY [facility] Last Admin: 09/18/16 09:40 Dose: 1 mg Guaifenesin (Robitussin) 100 mg PO Q4H PRN PRN Reason: Cough Linezolid (Zyvox 600mg/300ml D5w) 600 mg in 300 mls @ 100 mls/hr IVPB Q12H [facility] Last Admin: 09/18/16 11:19 Dose: 100 mls/hr Meropenem 500 mg/ Sodium (Chloride) 100 mls @ 100 mls/hr IVPB Q8H [facility] Last Admin: 09/18/16 13:26 Dose: 100 mls/hr Levothyroxine Sodium (Synthroid) 100 mcg PO DAILY@0630 [facility] Last Admin: 09/18/16 06:05 Dose: 100 mcg Megestrol Acetate (Megace) 400 mg PO DAILY [facility] Last Admin: 09/18/16 09:40 Dose: 400 mg Sodium Bicarbonate (Sodium Bicarbonate Tab) 650 mg PO TID [facility] Last Admin: 09/18/16 13:28 Dose: 650 mg Tamsulosin HCl (Flomax) 0.4 mg PO DAILY [facility] Last Admin: 09/18/16 09:40 Dose: 0.4 mg - Labs Labs: 09/18/16 06:43 09/18/16 06:04 PT 13.5 SECONDS (9.7-12.2) H 09/12/16 19:06 INR 1.2 09/12/16 19:06 APTT 28 SECONDS (21-34) 09/12/16 19:06 - Head Exam Head Exam: ATRAUMATIC - Eye Exam Eye Exam: Normal appearance - ENT Exam ENT Exam: Mucous Membranes Dry - Respiratory Exam Respiratory Exam: Decreased Breath Sounds, Rhonchi - Cardiovascular Exam Cardiovascular Exam: +S1, +S2 - GI/Abdominal Exam GI & Abdominal Exam: Normal Bowel Sounds - Extremities Exam Extremities Exam: Normal Inspection Assessment and Plan (1) Anemia Assessment & Plan: chronic disease transfusion support PRN Status: Acute (2) Colon cancer Assessment & Plan: 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
[2016-09-18] MEDS ORDERED: Sod Polystyrene Sulf 15 gm/60 ml Oral Susp PO ONE ×2 (17:29→19:15)
[2016-09-19] MEDS: Acetylcysteine 20% Inhal Soln (4ml) INH SCH ×4 (01:27→20:02)
[2016-09-19] MEDS: Albuterol-Ipratrop 3 mg / 0.5 (3 ml) UD INH SCH ×4 (01:27→20:02)
[2016-09-19] MEDS: Meropenem 500 MG in Sodium Chloride 0.9% 100 ML IVPB SCH ×3 (04:51→21:00)
[2016-09-19] MEDS: Levothyroxine 100 MCG TAB PO SCH (06:14)
[2016-09-19 06:22] LABS: POTASSIUM 5.6 mmol/L (3.6-5.2)
[2016-09-19 06:26] LABS: CALCIUM 8.3 mg/dl (8.6-10.4)
[2016-09-19] MEDS: Megestrol Acetate 40 mg/ml Cup PO SCH (09:08)
[2016-09-19] MEDS ORDERED: Sod Polystyrene Sulf 15 gm/60 ml Oral Susp PO ONE (11:00)
--- NOTE | 2016-09-19 11:53 | CP.PCM.PN ---
Subjective - Date & Time of Evaluation Date of Evaluation: 09/19/16 Time of Evaluation: 11:10 - Subjective Subjective: Appears comfortable Objective - Vital Signs/Intake and Output Vital Signs (last 24 hours): Temp Pulse Resp BP Pulse Ox 98 F 78 17 113/67 100 09/19/16 08:00 09/19/16 08:00 09/19/16 08:00 09/19/16 08:00 09/19/16 08:00 Intake and Output: 09/19/16 09/19/16 06:59 18:59 Intake Total 620 250 Output Total 485 100 Balance 135 150 - Medications Medications: Current Medications Acetylcysteine (Acetylcysteine 20%) 4 ml INH RQ6 [facility] Last Admin: 09/19/16 08:00 Dose: 4 ml Albuterol/Ipratropium (Duoneb 3 Mg/0.5 Mg (3 Ml) Ud) 3 ml INH RQ6 [facility] Last Admin: 09/19/16 08:00 Dose: 3 ml Famotidine (Pepcid) 20 mg PO DAILY [facility] Last Admin: 09/19/16 09:09 Dose: 20 mg Ferrous Sulfate (Feosol) 325 mg PO DAILY [facility] Last Admin: 09/19/16 09:09 Dose: 325 mg Folic Acid (Folic Acid) 1 mg PO DAILY [facility] Last Admin: 09/19/16 09:09 Dose: 1 mg Guaifenesin (Robitussin) 100 mg PO Q4H PRN PRN Reason: Cough Linezolid (Zyvox 600mg/300ml D5w) 600 mg in 300 mls @ 100 mls/hr IVPB Q12H [facility] Last Admin: 09/18/16 22:49 Dose: 100 mls/hr Meropenem 500 mg/ Sodium (Chloride) 100 mls @ 100 mls/hr IVPB Q8H [facility] Last Admin: 09/19/16 04:51 Dose: 100 mls/hr Levothyroxine Sodium (Synthroid) 100 mcg PO DAILY@0630 [facility] Last Admin: 09/19/16 06:14 Dose: 100 mcg Megestrol Acetate (Megace) 400 mg PO DAILY [facility] Last Admin: 09/19/16 09:08 Dose: 400 mg Sodium Bicarbonate (Sodium Bicarbonate Tab) 650 mg PO TID [facility] Last Admin: 09/19/16 09:08 Dose: 650 mg Tamsulosin HCl (Flomax) 0.4 mg PO DAILY [facility] Last Admin: 09/19/16 09:09 Dose: 0.4 mg - Labs Labs: 09/18/16 06:43 09/19/16 06:05 PT 13.5 SECONDS (9.7-12.2) H 09/12/16 19:06 INR 1.2 09/12/16 19:06 APTT 28 SECONDS (21-34) 09/12/16 19:06 - Head Exam Head Exam: ATRAUMATIC - Eye Exam Eye Exam: Normal appearance - ENT Exam ENT Exam: Mucous Membranes Dry - Respiratory Exam Respiratory Exam: NORMAL BREATHING PATTERN - Cardiovascular Exam Cardiovascular Exam: +S1, +S2 - GI/Abdominal Exam GI & Abdominal Exam: Normal Bowel Sounds - Extremities Exam Extremities Exam: Normal Inspection Assessment and Plan (1) Anemia Assessment & Plan: chronic disease and CKD transfusion support PRN Status: Acute (2) Colon cancer Assessment & Plan: 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
[2016-09-19] MEDS: Linezolid 600 mg in D5W 300 ml 600 MG/300 ML BAG IVPB SCH ×2 (12:35→22:30)
--- NOTE | 2016-09-19 13:32 | PN ---
DATE: 09/19/2016 The patient is feeling better. Shortness of breath is less, more awake. ____ at this point suggest followup CAT scan of the chest to assess this patient's status of the lesion in the lung. Supportive care. Finn Manning MD cc: [id number] TT: 09/19/2016 10:38:50 Confirmation # [id number] Dictation # [id number]
--- NOTE | 2016-09-19 16:06 | CP.PCM.PN ---
Subjective - Date & Time of Evaluation Date of Evaluation: 09/19/16 Time of Evaluation: 08:00 - Subjective Subjective: IMPROVING Objective - Vital Signs/Intake and Output Vital Signs (last 24 hours): Temp Pulse Resp BP Pulse Ox 97.9 F 88 16 90/45 L 100 09/19/16 12:00 09/19/16 12:00 09/19/16 12:00 09/19/16 12:00 09/19/16 12:00 Intake and Output: 09/19/16 09/19/16 06:59 18:59 Intake Total 620 700 Output Total 485 250 Balance 135 450 - Medications Medications: Current Medications Acetylcysteine (Acetylcysteine 20%) 4 ml INH RQ6 [facility] Last Admin: 09/19/16 13:48 Dose: 4 ml Albuterol/Ipratropium (Duoneb 3 Mg/0.5 Mg (3 Ml) Ud) 3 ml INH RQ6 [facility] Last Admin: 09/19/16 13:47 Dose: 3 ml Famotidine (Pepcid) 20 mg PO DAILY [facility] Last Admin: 09/19/16 09:09 Dose: 20 mg Ferrous Sulfate (Feosol) 325 mg PO DAILY [facility] Last Admin: 09/19/16 09:09 Dose: 325 mg Folic Acid (Folic Acid) 1 mg PO DAILY [facility] Last Admin: 09/19/16 09:09 Dose: 1 mg Guaifenesin (Robitussin) 100 mg PO Q4H PRN PRN Reason: Cough Linezolid (Zyvox 600mg/300ml D5w) 600 mg in 300 mls @ 100 mls/hr IVPB Q12H [facility] Last Admin: 09/19/16 12:35 Dose: 100 mls/hr Meropenem 500 mg/ Sodium (Chloride) 100 mls @ 100 mls/hr IVPB Q8H [facility] Last Admin: 09/19/16 15:36 Dose: 100 mls/hr Levothyroxine Sodium (Synthroid) 100 mcg PO DAILY@0630 [facility] Last Admin: 09/19/16 06:14 Dose: 100 mcg Megestrol Acetate (Megace) 400 mg PO DAILY [facility] Last Admin: 09/19/16 09:08 Dose: 400 mg Sodium Bicarbonate (Sodium Bicarbonate Tab) 650 mg PO TID [facility] Last Admin: 09/19/16 14:00 Dose: Not Given Tamsulosin HCl (Flomax) 0.4 mg PO DAILY [facility] Last Admin: 09/19/16 09:09 Dose: 0.4 mg - Labs Labs: 09/18/16 06:43 09/19/16 06:05 PT 13.5 SECONDS (9.7-12.2) H 09/12/16 19:06 INR 1.2 09/12/16 19:06 APTT 28 SECONDS (21-34) 09/12/16 19:06 - Constitutional Appears: Confused, Cachectic, Chronically Ill - Head Exam Head Exam: NORMOCEPHALIC - Eye Exam Eye Exam: PERRL. absent: Scleral icterus - ENT Exam ENT Exam: Mucous Membranes Dry - Neck Exam Neck Exam: absent: Lymphadenopathy - Respiratory Exam Respiratory Exam: Decreased Breath Sounds - Cardiovascular Exam Cardiovascular Exam: REGULAR RHYTHM, +S1, +S2 Assessment and Plan (1) NOEMI (acute kidney injury) Status: Acute (2) Hypotension Status: Acute (3) Pneumonia Status: Acute (4) Severe dehydration Status: Acute (5) Abdominal pain Status: Acute (6) Rheumatoid arthritis Status: Acute (7) COPD (chronic obstructive pulmonary disease) Status: Chronic (8) Hypertension Status: Chronic (9) Renal insufficiency Status: Chronic
--- NOTE | 2016-09-19 18:17 | CP.PCM.PN ---
Subjective - Date & Time of Evaluation Date of Evaluation: 09/19/16 Time of Evaluation: 14:20 - Subjective Subjective: clinically same Objective - Vital Signs/Intake and Output Vital Signs (last 24 hours): Temp Pulse Resp BP Pulse Ox 97.9 F 88 16 90/45 L 100 09/19/16 12:00 09/19/16 12:00 09/19/16 12:00 09/19/16 12:00 09/19/16 12:00 Intake and Output: 09/19/16 09/19/16 06:59 18:59 Intake Total 620 700 Output Total 485 250 Balance 135 450 - Medications Medications: Current Medications Acetylcysteine (Acetylcysteine 20%) 4 ml INH RQ6 [facility] Last Admin: 09/19/16 13:48 Dose: 4 ml Albuterol/Ipratropium (Duoneb 3 Mg/0.5 Mg (3 Ml) Ud) 3 ml INH RQ6 [facility] Last Admin: 09/19/16 13:47 Dose: 3 ml Famotidine (Pepcid) 20 mg PO DAILY [facility] Last Admin: 09/19/16 09:09 Dose: 20 mg Ferrous Sulfate (Feosol) 325 mg PO DAILY [facility] Last Admin: 09/19/16 09:09 Dose: 325 mg Folic Acid (Folic Acid) 1 mg PO DAILY [facility] Last Admin: 09/19/16 09:09 Dose: 1 mg Guaifenesin (Robitussin) 100 mg PO Q4H PRN PRN Reason: Cough Linezolid (Zyvox 600mg/300ml D5w) 600 mg in 300 mls @ 100 mls/hr IVPB Q12H [facility] Last Admin: 09/19/16 12:35 Dose: 100 mls/hr Meropenem 500 mg/ Sodium (Chloride) 100 mls @ 100 mls/hr IVPB Q8H [facility] Last Admin: 09/19/16 15:36 Dose: 100 mls/hr Levothyroxine Sodium (Synthroid) 100 mcg PO DAILY@0630 [facility] Last Admin: 09/19/16 06:14 Dose: 100 mcg Megestrol Acetate (Megace) 400 mg PO DAILY [facility] Last Admin: 09/19/16 09:08 Dose: 400 mg Sodium Bicarbonate (Sodium Bicarbonate Tab) 650 mg PO TID [facility] Last Admin: 09/19/16 17:59 Dose: 650 mg Tamsulosin HCl (Flomax) 0.4 mg PO DAILY [facility] Last Admin: 09/19/16 09:09 Dose: 0.4 mg - Labs Labs: 09/18/16 06:43 09/19/16 06:05 PT 13.5 SECONDS (9.7-12.2) H 09/12/16 19:06 INR 1.2 09/12/16 19:06 APTT 28 SECONDS (21-34) 09/12/16 19:06 - Constitutional Appears: Well - Head Exam Head Exam: ATRAUMATIC, NORMAL INSPECTION, NORMOCEPHALIC - Eye Exam Eye Exam: EOMI, Normal appearance, PERRL Pupil Exam: NORMAL ACCOMODATION, PERRL - ENT Exam ENT Exam: Mucous Membranes Moist, Normal Exam - Neck Exam Neck Exam: Full ROM, Normal Inspection. absent: Lymphadenopathy - Respiratory Exam Respiratory Exam: Decreased Breath Sounds - Cardiovascular Exam Cardiovascular Exam: REGULAR RHYTHM, +S1, +S2 - GI/Abdominal Exam GI & Abdominal Exam: Soft, Diminished Bowel Sounds - Rectal Exam Rectal Exam: Deferred Assessment and Plan - Assessment and Plan (Free Text) Plan: Follow-up longwall headgate operator Follow-up ID Follow-up Burnt Lime Drawer Follow-up rehab care assistant Follow-up hem/onc Continue IV antibiotic Follow-up with labs Continue other meds as ordered
[2016-09-20] MEDS: Acetylcysteine 20% Inhal Soln (4ml) INH SCH ×3 (01:24→20:05)
[2016-09-20] MEDS: Albuterol-Ipratrop 3 mg / 0.5 (3 ml) UD INH SCH ×3 (01:24→20:05)
[2016-09-20] MEDS: Meropenem 500 MG in Sodium Chloride 0.9% 100 ML IVPB SCH ×3 (04:05→21:25)
[2016-09-20] MEDS: Levothyroxine 100 MCG TAB PO SCH (07:18)
--- NOTE | 2016-09-20 09:19 | CP.PCM.PN ---
Subjective - Date & Time of Evaluation Date of Evaluation: 09/20/16 Time of Evaluation: 12:40 - Subjective Subjective: clinically same Objective - Vital Signs/Intake and Output Vital Signs (last 24 hours): Temp Pulse Resp BP Pulse Ox 98.4 F 89 20 128/68 99 09/20/16 04:00 09/20/16 04:00 09/20/16 04:00 09/20/16 04:00 09/20/16 04:00 Intake and Output: 09/20/16 09/20/16 06:59 18:59 Intake Total 450 Output Total 450 Balance 0 - Medications Medications: Current Medications Acetylcysteine (Acetylcysteine 20%) 4 ml INH RQ6 [facility] Last Admin: 09/20/16 07:58 Dose: 4 ml Albuterol/Ipratropium (Duoneb 3 Mg/0.5 Mg (3 Ml) Ud) 3 ml INH RQ6 [facility] Last Admin: 09/20/16 07:58 Dose: 3 ml Famotidine (Pepcid) 20 mg PO DAILY [facility] Last Admin: 09/19/16 09:09 Dose: 20 mg Ferrous Sulfate (Feosol) 325 mg PO DAILY [facility] Last Admin: 09/19/16 09:09 Dose: 325 mg Folic Acid (Folic Acid) 1 mg PO DAILY [facility] Last Admin: 09/19/16 09:09 Dose: 1 mg Guaifenesin (Robitussin) 100 mg PO Q4H PRN PRN Reason: Cough Linezolid (Zyvox 600mg/300ml D5w) 600 mg in 300 mls @ 100 mls/hr IVPB Q12H [facility] Last Admin: 09/19/16 22:30 Dose: 100 mls/hr Meropenem 500 mg/ Sodium (Chloride) 100 mls @ 100 mls/hr IVPB Q8H [facility] Last Admin: 09/20/16 04:05 Dose: 100 mls/hr Levothyroxine Sodium (Synthroid) 100 mcg PO DAILY@0630 [facility] Last Admin: 09/20/16 07:18 Dose: 100 mcg Megestrol Acetate (Megace) 400 mg PO DAILY [facility] Last Admin: 09/19/16 09:08 Dose: 400 mg Sodium Bicarbonate (Sodium Bicarbonate Tab) 650 mg PO TID [facility] Last Admin: 09/19/16 17:59 Dose: 650 mg Tamsulosin HCl (Flomax) 0.4 mg PO DAILY [facility] Last Admin: 09/19/16 09:09 Dose: 0.4 mg - Labs Labs: 09/18/16 06:43 09/19/16 06:05 PT 13.5 SECONDS (9.7-12.2) H 09/12/16 19:06 INR 1.2 09/12/16 19:06 APTT 28 SECONDS (21-34) 09/12/16 19:06 - Constitutional Appears: Well - Head Exam Head Exam: ATRAUMATIC, NORMAL INSPECTION, NORMOCEPHALIC - Eye Exam Eye Exam: EOMI, Normal appearance, PERRL Pupil Exam: NORMAL ACCOMODATION, PERRL - ENT Exam ENT Exam: Mucous Membranes Moist, Normal Exam - Neck Exam Neck Exam: Full ROM, Normal Inspection. absent: Lymphadenopathy - Respiratory Exam Respiratory Exam: Decreased Breath Sounds - Cardiovascular Exam Cardiovascular Exam: REGULAR RHYTHM, +S1, +S2 - GI/Abdominal Exam GI & Abdominal Exam: Soft, Diminished Bowel Sounds - Rectal Exam Rectal Exam: Deferred Assessment and Plan - Assessment and Plan (Free Text) Plan: Follow-up dental ceramist Follow-up ID Follow-up Grinding Wheel Operator Follow-up margin trimmer Follow-up hem/onc Continue IV antibiotic Continue CBC monitor Continue other meds as ordered
[2016-09-20] MEDS: Linezolid 600 mg in D5W 300 ml 600 MG/300 ML BAG IVPB SCH ×2 (10:59→22:34)
[2016-09-20] MEDS: Megestrol Acetate 40 mg/ml Cup PO SCH (11:00)
[2016-09-20] MEDS ORDERED: Lidocaine 2% Inj (20ml) ONE (15:29)
--- NOTE | 2016-09-20 15:46 | PCM.SURG1 ---
Surgeon's Initial Post Op Note - Surgeon's Notes Surgeon: Rodrigue Oseguera md Isolation Washer: none Type of Anesthesia: Local Pre-Operative Diagnosis: pNA Operative Findings: Patent brachial vein Post-Operative Diagnosis: PNA Operation Performed: Right brachial single lumen picc placement. Lenght 35 cm. Tip in the SVC. Specimen/Specimens Removed: none Estimated Blood Loss: EBL {In ML}: 2 Blood Products Given: N/A Drains Used: No Drains Post-Op Condition: Fair Date of Surgery/Procedure: 09/20/16 Time of Surgery/Procedure: 15:45
[2016-09-20] MEDS ORDERED: Epoetin Alfa 20000 UNIT/ML Inj SC ONE (17:33)
--- NOTE | 2016-09-20 17:34 | CP.PCM.PN ---
Subjective - Date & Time of Evaluation Date of Evaluation: 09/20/16 Time of Evaluation: 14:00 - Subjective Subjective: No complaints, eating lunch Objective - Vital Signs/Intake and Output Vital Signs (last 24 hours): Temp Pulse Resp BP Pulse Ox 97.9 F 91 H 22 114/60 98 09/20/16 15:21 09/20/16 15:21 09/20/16 15:21 09/20/16 15:21 09/20/16 15:21 Intake and Output: 09/20/16 09/20/16 06:59 18:59 Intake Total 450 780 Output Total 450 Balance 0 780 - Medications Medications: Current Medications Acetylcysteine (Acetylcysteine 20%) 4 ml INH RQ6 [facility] Last Admin: 09/20/16 07:58 Dose: 4 ml Famotidine (Pepcid) 20 mg PO DAILY [facility] Last Admin: 09/20/16 09:45 Dose: 20 mg Ferrous Sulfate (Feosol) 325 mg PO DAILY [facility] Last Admin: 09/20/16 09:45 Dose: 325 mg Folic Acid (Folic Acid) 1 mg PO DAILY [facility] Last Admin: 09/20/16 09:45 Dose: 1 mg Guaifenesin (Robitussin) 100 mg PO Q4H PRN PRN Reason: Cough Linezolid (Zyvox 600mg/300ml D5w) 600 mg in 300 mls @ 100 mls/hr IVPB Q12H [facility] Last Admin: 09/20/16 10:59 Dose: 100 mls/hr Meropenem 500 mg/ Sodium (Chloride) 100 mls @ 100 mls/hr IVPB Q8H [facility] Last Admin: 09/20/16 13:30 Dose: Not Given Levothyroxine Sodium (Synthroid) 100 mcg PO DAILY@0630 [facility] Last Admin: 09/20/16 07:18 Dose: 100 mcg Megestrol Acetate (Megace) 400 mg PO DAILY [facility] Last Admin: 09/20/16 11:00 Dose: 400 mg Sodium Bicarbonate (Sodium Bicarbonate Tab) 650 mg PO TID [facility] Last Admin: 09/20/16 14:30 Dose: Not Given Tamsulosin HCl (Flomax) 0.4 mg PO DAILY [facility] Last Admin: 09/20/16 09:45 Dose: 0.4 mg - Labs Labs: 09/18/16 06:43 09/19/16 06:05 PT 13.5 SECONDS (9.7-12.2) H 09/12/16 19:06 INR 1.2 09/12/16 19:06 APTT 28 SECONDS (21-34) 09/12/16 19:06 - Head Exam Head Exam: ATRAUMATIC - Eye Exam Eye Exam: Normal appearance - ENT Exam ENT Exam: Mucous Membranes Dry - Respiratory Exam Respiratory Exam: NORMAL BREATHING PATTERN - Cardiovascular Exam Cardiovascular Exam: +S1, +S2 - GI/Abdominal Exam GI & Abdominal Exam: Normal Bowel Sounds Assessment and Plan (1) Anemia Assessment & Plan: chronic disease, CKD transfusion support PRN will give Procrit to decrease transfusion dependence Status: Acute (2) Colon cancer Assessment & Plan: 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
[2016-09-20 18:42] LABS: AB TO F ANTIGEN NEGATIVE; AB TO TP ANTIGEN NEGATIVE
[2016-09-21] MEDS: Acetylcysteine 20% Inhal Soln (4ml) INH SCH ×4 (01:35→19:25)
[2016-09-21] MEDS: Meropenem 500 MG in Sodium Chloride 0.9% 100 ML IVPB SCH ×3 (05:36→21:33)
[2016-09-21] MEDS: Levothyroxine 100 MCG TAB PO SCH (06:45)
[2016-09-21 07:05] LABS: BASO # 0.1 K/uL (0.0-0.2); BASO % 1.4 % (0.0-2.0); EOS # 0.3 K/uL (0.0-0.7); EOS % 3.1 % (0.0-4.0); LYMPH # 1.6 K/uL (1.0-4.3); LYMPH % 16.3 % (20.0-40.0); MEAN CELL VOLUME 86.6 fL (80.0-94.0); MEAN CORPUSCULAR HEMOGLOBIN 27.6 pg (27.0-31.0); MEAN CORPUSCULAR HGB CONC 31.8 g/dL (33.0-37.0); MEAN PLATELET VOLUME 7.5 fL (7.2-11.7); MONO # 0.8 K/uL (0.0-0.8); MONO % 7.8 % (0.0-10.0); RED CELL DISTRIBUTION WIDTH 13.8 % (11.5-14.5); WHITE BLOOD COUNT 9.7 K/uL (4.8-10.8)
[2016-09-21 07:43] LABS: POTASSIUM 4.4 mmol/L (3.6-5.2)
[2016-09-21 07:45] LABS: ALB/GLOB RATIO 0.8 (1.0-2.1); BILIRUBIN,TOTAL 0.4 mg/dL (0.2-1.3); CALCIUM 7.6 mg/dl (8.6-10.4); TOTAL PROTEIN 5.3 g/dL (6.3-8.3)
--- NOTE | 2016-09-21 10:16 | CP.PCM.PN ---
Subjective - Date & Time of Evaluation Date of Evaluation: 09/21/16 Time of Evaluation: 11:00 - Subjective Subjective: clinically same Objective - Vital Signs/Intake and Output Vital Signs (last 24 hours): Temp Pulse Resp BP Pulse Ox 98.3 F 89 18 109/61 100 09/21/16 09:44 09/21/16 09:44 09/21/16 09:44 09/21/16 09:44 09/21/16 09:44 Intake and Output: 09/21/16 09/21/16 06:59 18:59 Intake Total 300 Balance 300 - Medications Medications: Current Medications Acetylcysteine (Acetylcysteine 20%) 4 ml INH RQ6 [facility] Last Admin: 09/21/16 01:35 Dose: Not Given Famotidine (Pepcid) 20 mg PO DAILY [facility] Last Admin: 09/20/16 09:45 Dose: 20 mg Ferrous Sulfate (Feosol) 325 mg PO DAILY [facility] Last Admin: 09/20/16 09:45 Dose: 325 mg Folic Acid (Folic Acid) 1 mg PO DAILY [facility] Last Admin: 09/20/16 09:45 Dose: 1 mg Guaifenesin (Robitussin) 100 mg PO Q4H PRN PRN Reason: Cough Linezolid (Zyvox 600mg/300ml D5w) 600 mg in 300 mls @ 100 mls/hr IVPB Q12H [facility] Last Admin: 09/20/16 22:34 Dose: 100 mls/hr Meropenem 500 mg/ Sodium (Chloride) 100 mls @ 100 mls/hr IVPB Q8H [facility] Last Admin: 09/21/16 05:36 Dose: 100 mls/hr Levothyroxine Sodium (Synthroid) 100 mcg PO DAILY@0630 [facility] Last Admin: 09/21/16 06:45 Dose: 100 mcg Megestrol Acetate (Megace) 400 mg PO DAILY [facility] Last Admin: 09/20/16 11:00 Dose: 400 mg Sodium Bicarbonate (Sodium Bicarbonate Tab) 650 mg PO TID [facility] Last Admin: 09/20/16 18:56 Dose: 650 mg Tamsulosin HCl (Flomax) 0.4 mg PO DAILY [facility] Last Admin: 09/20/16 09:45 Dose: 0.4 mg - Labs Labs: 09/21/16 06:55 09/21/16 06:55 PT 13.5 SECONDS (9.7-12.2) H 09/12/16 19:06 INR 1.2 09/12/16 19:06 APTT 28 SECONDS (21-34) 09/12/16 19:06 - Constitutional Appears: Well - Head Exam Head Exam: ATRAUMATIC, NORMAL INSPECTION, NORMOCEPHALIC - Eye Exam Eye Exam: EOMI, Normal appearance, PERRL Pupil Exam: NORMAL ACCOMODATION, PERRL - ENT Exam ENT Exam: Mucous Membranes Moist, Normal Exam - Neck Exam Neck Exam: Full ROM, Normal Inspection. absent: Lymphadenopathy - Respiratory Exam Respiratory Exam: Decreased Breath Sounds - Cardiovascular Exam Cardiovascular Exam: REGULAR RHYTHM, +S1, +S2 - GI/Abdominal Exam GI & Abdominal Exam: Soft, Diminished Bowel Sounds - Rectal Exam Rectal Exam: Deferred Assessment and Plan - Assessment and Plan (Free Text) Plan: Follow-up distributed energy systems consultant Follow-up ID Follow-up Professor Of Business Administration Follow-up supervisor fertilizer processing Follow-up hem/onc Continue CBC monitor IV antibiotic Follow-up with labs
--- NOTE | 2016-09-21 10:34 | SPECPROC ---
PROCEDURE: Date of procedure: 09/20/2016 Procedure: 1. Placement of a right arm PICC with ultrasound and fluoroscopic guidance, CPT 23752 2. PICC tip confirmation with spot radiograph and is in the superior vena cava Medications: 3cc 1 percent lidocaine HISTORY: Infection requiring long-term IV antibiotics TECHNIQUE: Following informed consent and procedure time-out, the patient was placed supine on the interventional table and the right arm prepped and draped in the usual sterile fashion. Ultrasound showed a patent and compressible right brachial vein. After the skin was anesthetized with lidocaine, the brachial vein was accessed with micro micropuncture technique using ultrasound guidance. A guidewire was then advanced under fluoroscopic guidance into the superior vena cava. An image documenting ultrasound guidance for vascular access was permanently saved. The length of the single-lumen 4 Turkish PICC was trimmed to 35 centimeters and advanced through a peel-away sheath. The PICC was position with tip of PICC confirm a spot radiograph the superior vena cava. The PICC was secured to the patient's skin. The PICC was flushed. A biopatch and sterile dressing was applied. IMPRESSION: Placement of a single-lumen 4 Turkish PICC trimmed to 35 centimeters via right brachial vein. The tip of the PICC is confirmed with spot radiograph and is in the superior vena cava.
[2016-09-21] MEDS: Sodium Chloride 0.9% 1,000 ML IV SCH (11:06)
[2016-09-21] MEDS: Megestrol Acetate 40 mg/ml Cup PO SCH (11:06)
[2016-09-21] MEDS: Linezolid 600 mg in D5W 300 ml 600 MG/300 ML BAG IVPB SCH (12:48)
--- NOTE | 2016-09-21 18:34 | CP.PCM.PN ---
Subjective - Date & Time of Evaluation Date of Evaluation: 09/21/16 Time of Evaluation: 08:00 - Subjective Subjective: seen on rounds awake alert afebrile all entries reviewed cultures and labs reviewed for possible d/c after transfusion Objective - Vital Signs/Intake and Output Vital Signs (last 24 hours): Temp Pulse Resp BP Pulse Ox 98 F 88 20 115/65 100 09/21/16 15:51 09/21/16 15:51 09/21/16 15:51 09/21/16 15:51 09/21/16 15:51 Intake and Output: 09/21/16 09/21/16 06:59 18:59 Intake Total 300 0 Output Total 200 Balance 300 -200 - Medications Medications: Current Medications Acetylcysteine (Acetylcysteine 20%) 4 ml INH RQ6 [facility] Last Admin: 09/21/16 13:19 Dose: Not Given Albuterol Sulfate (Albuterol 0.083% Inhal Luz (2.5 Mg/3 Ml) Ud) 2.5 mg INH RQ6 [facility] Famotidine (Pepcid) 20 mg PO DAILY [facility] Last Admin: 09/21/16 11:06 Dose: 20 mg Ferrous Sulfate (Feosol) 325 mg PO DAILY [facility] Last Admin: 09/21/16 11:06 Dose: 325 mg Folic Acid (Folic Acid) 1 mg PO DAILY [facility] Last Admin: 09/21/16 11:06 Dose: 1 mg Guaifenesin (Robitussin) 100 mg PO Q4H PRN PRN Reason: Cough Linezolid (Zyvox 600mg/300ml D5w) 600 mg in 300 mls @ 100 mls/hr IVPB Q12H [facility] Last Admin: 09/21/16 12:48 Dose: 100 mls/hr Meropenem 500 mg/ Sodium (Chloride) 100 mls @ 100 mls/hr IVPB Q8H [facility] Last Admin: 09/21/16 17:16 Dose: Not Given Sodium Chloride (Sodium Chloride 0.9%) 1,000 mls @ 50 mls/hr IV .Q20H [facility] Stop: 09/22/16 11:00 Last Admin: 09/21/16 11:06 Dose: 50 mls/hr Levothyroxine Sodium (Synthroid) 100 mcg PO DAILY@0630 [facility] Last Admin: 09/21/16 06:45 Dose: 100 mcg Megestrol Acetate (Megace) 400 mg PO DAILY [facility] Last Admin: 09/21/16 11:06 Dose: 400 mg Sodium Bicarbonate (Sodium Bicarbonate Tab) 650 mg PO TID [facility] Last Admin: 09/21/16 14:15 Dose: 650 mg Tamsulosin HCl (Flomax) 0.4 mg PO DAILY [facility] Last Admin: 09/21/16 11:06 Dose: 0.4 mg - Labs Labs: 09/21/16 06:55 09/21/16 06:55 PT 13.5 SECONDS (9.7-12.2) H 09/12/16 19:06 INR 1.2 09/12/16 19:06 APTT 28 SECONDS (21-34) 09/12/16 19:06 - Constitutional Appears: Non-toxic, Chronically Ill - Head Exam Head Exam: NORMOCEPHALIC - Eye Exam Eye Exam: PERRL. absent: Scleral icterus - ENT Exam ENT Exam: Mucous Membranes Dry, Normal External Ear Exam - Neck Exam Neck Exam: absent: Lymphadenopathy - Respiratory Exam Respiratory Exam: Decreased Breath Sounds, Rhonchi - Cardiovascular Exam Cardiovascular Exam: REGULAR RHYTHM, +S1, +S2 - GI/Abdominal Exam GI & Abdominal Exam: Distended, Soft. absent: Tenderness - Rectal Exam Rectal Exam: Deferred - Exam Exam: NORMAL INSPECTION - Extremities Exam Extremities Exam: absent: Pedal Edema - Back Exam Back Exam: absent: CVA tenderness (L), CVA tenderness (R) - Neurological Exam Neurological Exam: Alert, Awake, Oriented x3 Assessment and Plan (1) NOEMI (acute kidney injury) Status: Acute (2) Hypotension Status: Acute (3) Pneumonia Status: Acute (4) Severe dehydration Status: Acute (5) Abdominal pain Status: Acute (6) Rheumatoid arthritis Status: Acute (7) COPD (chronic obstructive pulmonary disease) Status: Chronic (8) Hypertension Status: Chronic (9) Renal insufficiency Status: Chronic - Assessment and Plan (Free Text) Assessment: d/c zyvox cont merrem for esbl putum
[2016-09-21] MEDS: Albuterol 0.083% Inhal Sol (2.5 mg/3 mL) UD INH SCH (19:25)
[2016-09-22] MEDS: Albuterol 0.083% Inhal Sol (2.5 mg/3 mL) UD INH SCH ×4 (01:34→20:05)
[2016-09-22] MEDS: Acetylcysteine 20% Inhal Soln (4ml) INH SCH ×4 (01:34→20:05)
[2016-09-22] MEDS: Meropenem 500 MG in Sodium Chloride 0.9% 100 ML IVPB SCH ×3 (05:16→22:02)
[2016-09-22] MEDS: Levothyroxine 100 MCG TAB PO SCH (06:00)
[2016-09-22] MEDS: Megestrol Acetate 40 mg/ml Cup PO SCH (09:24)
[2016-09-22] MEDS: Sodium Chloride 0.9% 1,000 ML IV SCH (13:15)
--- NOTE | 2016-09-22 14:40 | CP.PCM.PN ---
Subjective - Date & Time of Evaluation Date of Evaluation: 09/22/16 Time of Evaluation: 11:20 - Subjective Subjective: clinically same Objective - Vital Signs/Intake and Output Vital Signs (last 24 hours): Temp Pulse Resp BP Pulse Ox 98.3 F 101 H 18 128/63 95 09/22/16 08:15 09/22/16 08:15 09/22/16 08:15 09/22/16 08:15 09/22/16 08:15 Intake and Output: 09/22/16 09/22/16 06:59 18:59 Intake Total 400 Output Total 350 Balance 50 - Medications Medications: Current Medications Acetylcysteine (Acetylcysteine 20%) 4 ml INH RQ6 [facility] Last Admin: 09/22/16 14:00 Dose: 4 ml Albuterol Sulfate (Albuterol 0.083% Inhal Luz (2.5 Mg/3 Ml) Ud) 2.5 mg INH RQ6 [facility] Last Admin: 09/22/16 14:01 Dose: 2.5 mg Famotidine (Pepcid) 20 mg PO DAILY [facility] Last Admin: 09/22/16 09:24 Dose: 20 mg Ferrous Sulfate (Feosol) 325 mg PO DAILY [facility] Last Admin: 09/22/16 09:24 Dose: 325 mg Folic Acid (Folic Acid) 1 mg PO DAILY [facility] Last Admin: 09/22/16 09:24 Dose: 1 mg Guaifenesin (Robitussin) 100 mg PO Q4H PRN PRN Reason: Cough Meropenem 500 mg/ Sodium (Chloride) 100 mls @ 100 mls/hr IVPB Q8H [facility] Last Admin: 09/22/16 13:15 Dose: 100 mls/hr Levothyroxine Sodium (Synthroid) 100 mcg PO DAILY@0630 [facility] Last Admin: 09/22/16 06:00 Dose: 100 mcg Megestrol Acetate (Megace) 400 mg PO DAILY [facility] Last Admin: 09/22/16 09:24 Dose: 400 mg Sodium Bicarbonate (Sodium Bicarbonate Tab) 650 mg PO TID [facility] Last Admin: 09/22/16 13:16 Dose: 650 mg Tamsulosin HCl (Flomax) 0.4 mg PO DAILY [facility] Last Admin: 09/22/16 09:24 Dose: 0.4 mg - Labs Labs: 09/21/16 06:55 09/21/16 06:55 PT 13.5 SECONDS (9.7-12.2) H 09/12/16 19:06 INR 1.2 09/12/16 19:06 APTT 28 SECONDS (21-34) 09/12/16 19:06 - Constitutional Appears: Well - Head Exam Head Exam: ATRAUMATIC, NORMAL INSPECTION, NORMOCEPHALIC - Eye Exam Eye Exam: EOMI, Normal appearance, PERRL Pupil Exam: NORMAL ACCOMODATION, PERRL - ENT Exam ENT Exam: Mucous Membranes Moist, Normal Exam - Neck Exam Neck Exam: Full ROM, Normal Inspection. 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
[2016-09-22 22:22] LABS: BASO # 0.2 K/uL (0.0-0.2); BASO % 1.9 % (0.0-2.0); EOS # 0.3 K/uL (0.0-0.7); HEMATOCRIT 29.1 % (35.0-51.0); LYMPH # 1.3 K/uL (1.0-4.3); LYMPH % 14.6 % (20.0-40.0); MEAN CELL VOLUME 85.8 fL (80.0-94.0); MEAN CORPUSCULAR HEMOGLOBIN 27.1 pg (27.0-31.0); MEAN CORPUSCULAR HGB CONC 31.6 g/dL (33.0-37.0); MEAN PLATELET VOLUME 7.3 fL (7.2-11.7); MONO # 0.8 K/uL (0.0-0.8); MONO % 8.3 % (0.0-10.0); PLATELET COUNT 278 K/uL (130-400); RED CELL DISTRIBUTION WIDTH 14.4 % (11.5-14.5); WHITE BLOOD COUNT 9.2 K/uL (4.8-10.8)
[2016-09-22 22:55] LABS: EOSINOPHIL 1 % (0-4); METAMYELOCYTE 1 % (0-0); MYELOCYTE 1 % (0-0); NEUTROPHIL 74 % (50-75); TOTAL CELLS COUNTED 100
[2016-09-22 22:56] LABS: LARGE PLATELETS PRESENT
[2016-09-23] MEDS: Albuterol 0.083% Inhal Sol (2.5 mg/3 mL) UD INH SCH ×4 (02:06→20:15)
[2016-09-23] MEDS: Acetylcysteine 20% Inhal Soln (4ml) INH SCH ×4 (02:06→20:15)
[2016-09-23] MEDS: Meropenem 500 MG in Sodium Chloride 0.9% 100 ML IVPB SCH ×3 (05:29→21:09)
[2016-09-23] MEDS: Levothyroxine 100 MCG TAB PO SCH (05:35)
[2016-09-23] MEDS: Megestrol Acetate 40 mg/ml Cup PO SCH (09:13)
[2016-09-23 11:11] LABS: BASO # 0.2 K/uL (0.0-0.2); BASO % 1.9 % (0.0-2.0); EOS # 0.3 K/uL (0.0-0.7); EOS % 3.6 % (0.0-4.0); HEMATOCRIT 29.2 % (35.0-51.0); LYMPH # 1.4 K/uL (1.0-4.3); LYMPH % 15.4 % (20.0-40.0); MEAN CELL VOLUME 86.7 fL (80.0-94.0); MEAN CORPUSCULAR HEMOGLOBIN 26.8 pg (27.0-31.0); MEAN PLATELET VOLUME 7.5 fL (7.2-11.7); MONO # 0.7 K/uL (0.0-0.8); MONO % 8.1 % (0.0-10.0); NRBC % 0.1 % (0.0-2.0); RED CELL DISTRIBUTION WIDTH 14.5 % (11.5-14.5)
[2016-09-23 11:24] LABS: CHLORIDE 109 mmol/L (98-107)
[2016-09-23 11:25] LABS: POTASSIUM 3.5 mmol/L (3.6-5.2); SODIUM 141 mmol/L (132-148)
[2016-09-23 11:27] LABS: ALB/GLOB RATIO 0.8 (1.0-2.1); ALKALINE PHOSPHATASE 56 U/L (38-126); ALT/SGPT 19 U/L (21-72); AST/SGOT 11 U/L (17-59); BILIRUBIN,TOTAL 0.4 mg/dL (0.2-1.3); BLOOD UREA NITROGEN 31 mg/dL (9-20); CARBON DIOXIDE 23 mmol/L (22-30); GFR AFRICAN-AMERICAN > 60; TOTAL PROTEIN 5.5 g/dL (6.3-8.3)
[2016-09-23 11:28] LABS: CALCIUM 7.7 mg/dl (8.6-10.4); GLUCOSE,RANDOM 68 mg/dL (75-110)
[2016-09-23] MEDS ORDERED: Potassium Chloride 20 mEq ER Tab PO STA (11:41)
--- NOTE | 2016-09-23 14:29 | CP.PCM.PN ---
Subjective - Date & Time of Evaluation Date of Evaluation: 09/23/16 Time of Evaluation: 09:00 - Subjective Subjective: AFEB ALERT NAD Objective - Vital Signs/Intake and Output Vital Signs (last 24 hours): Temp Pulse Resp BP Pulse Ox 98.4 F 95 H 19 149/70 94 L 09/23/16 08:13 09/23/16 08:13 09/23/16 08:13 09/23/16 08:13 09/23/16 08:13 Intake and Output: 09/23/16 09/23/16 06:59 18:59 Intake Total 500 Output Total 800 Balance -300 - Medications Medications: Current Medications Acetylcysteine (Acetylcysteine 20%) 4 ml INH RQ6 [facility] Last Admin: 09/23/16 14:13 Dose: 4 ml Albuterol Sulfate (Albuterol 0.083% Inhal Luz (2.5 Mg/3 Ml) Ud) 2.5 mg INH RQ6 [facility] Last Admin: 09/23/16 14:13 Dose: 2.5 mg Famotidine (Pepcid) 20 mg PO DAILY [facility] Last Admin: 09/23/16 09:13 Dose: 20 mg Ferrous Sulfate (Feosol) 325 mg PO DAILY [facility] Last Admin: 09/23/16 09:12 Dose: 325 mg Folic Acid (Folic Acid) 1 mg PO DAILY [facility] Last Admin: 09/23/16 09:13 Dose: 1 mg Guaifenesin (Robitussin) 100 mg PO Q4H PRN PRN Reason: Cough Meropenem 500 mg/ Sodium (Chloride) 100 mls @ 100 mls/hr IVPB Q8H [facility] Last Admin: 09/23/16 13:27 Dose: 100 mls/hr Levothyroxine Sodium (Synthroid) 100 mcg PO DAILY@0630 [facility] Last Admin: 09/23/16 05:35 Dose: 100 mcg Megestrol Acetate (Megace) 400 mg PO DAILY [facility] Last Admin: 09/23/16 09:13 Dose: 400 mg Sodium Bicarbonate (Sodium Bicarbonate Tab) 650 mg PO TID [facility] Last Admin: 09/23/16 13:27 Dose: 650 mg Tamsulosin HCl (Flomax) 0.4 mg PO DAILY [facility] Last Admin: 09/23/16 09:13 Dose: 0.4 mg - Labs Labs: 09/23/16 11:03 09/23/16 11:03 PT 13.5 SECONDS (9.7-12.2) H 09/12/16 19:06 INR 1.2 09/12/16 19:06 APTT 28 SECONDS (21-34) 09/12/16 19:06 - Constitutional Appears: Non-toxic, Cachectic, Chronically Ill - Head Exam Head Exam: NORMOCEPHALIC - Eye Exam Eye Exam: PERRL. absent: Scleral icterus - ENT Exam ENT Exam: Mucous Membranes Dry - Neck Exam Neck Exam: absent: Lymphadenopathy - Respiratory Exam Respiratory Exam: Decreased Breath Sounds, Rhonchi - Cardiovascular Exam Cardiovascular Exam: REGULAR RHYTHM, +S1, +S2 - GI/Abdominal Exam GI & Abdominal Exam: Distended, Soft - Rectal Exam Rectal Exam: Deferred - Exam Exam: NORMAL INSPECTION - Extremities Exam Extremities Exam: absent: Pedal Edema - Back Exam Back Exam: absent: CVA tenderness (L), CVA tenderness (R) - Neurological Exam Neurological Exam: Alert, Awake, Normal Gait - Psychiatric Exam Psychiatric exam: Normal Mood - Skin Skin Exam: Dry, Intact Assessment and Plan (1) NOEMI (acute kidney injury) Status: Acute (2) Hypotension Status: Acute (3) Pneumonia Status: Acute (4) Severe dehydration Status: Acute (5) Abdominal pain Status: Acute (6) Rheumatoid arthritis Status: Acute (7) COPD (chronic obstructive pulmonary disease) Status: Chronic (8) Hypertension Status: Chronic (9) Renal insufficiency Status: Chronic
--- NOTE | 2016-09-23 14:54 | CP.PCM.PN ---
Subjective - Date & Time of Evaluation Date of Evaluation: 09/22/16 Time of Evaluation: 16:00 - Subjective Subjective: No complaints Objective - Vital Signs/Intake and Output Vital Signs (last 24 hours): Temp Pulse Resp BP Pulse Ox 98.4 F 95 H 19 149/70 94 L 09/23/16 08:13 09/23/16 08:13 09/23/16 08:13 09/23/16 08:13 09/23/16 08:13 Intake and Output: 09/23/16 09/23/16 06:59 18:59 Intake Total 500 Output Total 800 Balance -300 - Medications Medications: Current Medications Acetylcysteine (Acetylcysteine 20%) 4 ml INH RQ6 [facility] Last Admin: 09/23/16 14:13 Dose: 4 ml Albuterol Sulfate (Albuterol 0.083% Inhal Luz (2.5 Mg/3 Ml) Ud) 2.5 mg INH RQ6 [facility] Last Admin: 09/23/16 14:13 Dose: 2.5 mg Famotidine (Pepcid) 20 mg PO DAILY [facility] Last Admin: 09/23/16 09:13 Dose: 20 mg Ferrous Sulfate (Feosol) 325 mg PO DAILY [facility] Last Admin: 09/23/16 09:12 Dose: 325 mg Folic Acid (Folic Acid) 1 mg PO DAILY [facility] Last Admin: 09/23/16 09:13 Dose: 1 mg Guaifenesin (Robitussin) 100 mg PO Q4H PRN PRN Reason: Cough Meropenem 500 mg/ Sodium (Chloride) 100 mls @ 100 mls/hr IVPB Q8H [facility] Last Admin: 09/23/16 13:27 Dose: 100 mls/hr Levothyroxine Sodium (Synthroid) 100 mcg PO DAILY@0630 [facility] Last Admin: 09/23/16 05:35 Dose: 100 mcg Megestrol Acetate (Megace) 400 mg PO DAILY [facility] Last Admin: 09/23/16 09:13 Dose: 400 mg Sodium Bicarbonate (Sodium Bicarbonate Tab) 650 mg PO TID [facility] Last Admin: 09/23/16 13:27 Dose: 650 mg Tamsulosin HCl (Flomax) 0.4 mg PO DAILY [facility] Last Admin: 09/23/16 09:13 Dose: 0.4 mg - Labs Labs: 09/23/16 11:03 09/23/16 11:03 PT 13.5 SECONDS (9.7-12.2) H 09/12/16 19:06 INR 1.2 09/12/16 19:06 APTT 28 SECONDS (21-34) 09/12/16 19:06 - Head Exam Head Exam: ATRAUMATIC - Eye Exam Eye Exam: Normal appearance - ENT Exam ENT Exam: Mucous Membranes Moist - Respiratory Exam Respiratory Exam: NORMAL BREATHING PATTERN - Cardiovascular Exam Cardiovascular Exam: +S1, +S2 - GI/Abdominal Exam GI & Abdominal Exam: Normal Bowel Sounds Assessment and Plan (1) Anemia Assessment & Plan: chronic disease, CKD transfusion support PRN Status: Acute (2) Colon cancer Assessment & Plan: 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
[2016-09-23] MEDS ORDERED: Potassium Chloride 10 mEq ER Tab PO STA (16:17)
--- NOTE | 2016-09-23 16:24 | CP.PCM.PN ---
Subjective - Date & Time of Evaluation Date of Evaluation: 09/23/16 Time of Evaluation: 07:00 - Subjective Subjective: Clinically same Objective - Vital Signs/Intake and Output Vital Signs (last 24 hours): Temp Pulse Resp BP Pulse Ox 98.4 F 95 H 19 149/70 94 L 09/23/16 08:13 09/23/16 08:13 09/23/16 08:13 09/23/16 08:13 09/23/16 08:13 Intake and Output: 09/23/16 09/23/16 06:59 18:59 Intake Total 500 350 Output Total 800 400 Balance -300 -50 - Medications Medications: Current Medications Acetylcysteine (Acetylcysteine 20%) 4 ml INH RQ6 [facility] Last Admin: 09/23/16 14:13 Dose: 4 ml Albuterol Sulfate (Albuterol 0.083% Inhal Luz (2.5 Mg/3 Ml) Ud) 2.5 mg INH RQ6 [facility] Last Admin: 09/23/16 14:13 Dose: 2.5 mg Famotidine (Pepcid) 20 mg PO DAILY [facility] Last Admin: 09/23/16 09:13 Dose: 20 mg Ferrous Sulfate (Feosol) 325 mg PO DAILY [facility] Last Admin: 09/23/16 09:12 Dose: 325 mg Folic Acid (Folic Acid) 1 mg PO DAILY [facility] Last Admin: 09/23/16 09:13 Dose: 1 mg Guaifenesin (Robitussin) 100 mg PO Q4H PRN PRN Reason: Cough Meropenem 500 mg/ Sodium (Chloride) 100 mls @ 100 mls/hr IVPB Q8H [facility] Last Admin: 09/23/16 13:27 Dose: 100 mls/hr Levothyroxine Sodium (Synthroid) 100 mcg PO DAILY@0630 [facility] Last Admin: 09/23/16 05:35 Dose: 100 mcg Megestrol Acetate (Megace) 400 mg PO DAILY [facility] Last Admin: 09/23/16 09:13 Dose: 400 mg Sodium Bicarbonate (Sodium Bicarbonate Tab) 650 mg PO TID [facility] Last Admin: 09/23/16 13:27 Dose: 650 mg Tamsulosin HCl (Flomax) 0.4 mg PO DAILY [facility] Last Admin: 09/23/16 09:13 Dose: 0.4 mg - Labs Labs: 09/23/16 11:03 09/23/16 11:03 PT 13.5 SECONDS (9.7-12.2) H 09/12/16 19:06 INR 1.2 09/12/16 19:06 APTT 28 SECONDS (21-34) 09/12/16 19:06 - Constitutional Appears: Well - Head Exam Head Exam: ATRAUMATIC, NORMAL INSPECTION, NORMOCEPHALIC - Eye Exam Eye Exam: EOMI, Normal appearance, PERRL Pupil Exam: NORMAL ACCOMODATION, PERRL - ENT Exam ENT Exam: Mucous Membranes Moist, Normal Exam - Neck Exam Neck Exam: Full ROM, Normal Inspection. absent: Lymphadenopathy - Respiratory Exam Respiratory Exam: Clear to Ausculation Bilateral, NORMAL BREATHING PATTERN - Cardiovascular Exam Cardiovascular Exam: REGULAR RHYTHM, +S1, +S2. absent: Murmur - GI/Abdominal Exam GI & Abdominal Exam: Soft, Diminished Bowel Sounds - Rectal Exam Rectal Exam: Deferred - Neurological Exam Neurological Exam: Oriented x3 Assessment and Plan - Assessment and Plan (Free Text) Plan: Patient can be discharged Continue antibiotics as ordered Continue other meds
[2016-09-24 00:35] VITALS: TEMP 98
[2016-09-24] MEDS: Albuterol 0.083% Inhal Sol (2.5 mg/3 mL) UD INH SCH ×3 (01:58→13:49)
[2016-09-24] MEDS: Acetylcysteine 20% Inhal Soln (4ml) INH SCH ×3 (01:58→13:49)
[2016-09-24] MEDS: Meropenem 500 MG in Sodium Chloride 0.9% 100 ML IVPB SCH ×2 (05:27→13:09)
[2016-09-24] MEDS: Levothyroxine 100 MCG TAB PO SCH (05:30)
[2016-09-24 07:05] LABS: BASO # 0.2 K/uL (0.0-0.2); BASO % 2.2 % (0.0-2.0); EOS # 0.4 K/uL (0.0-0.7); EOS % 4.6 % (0.0-4.0); HEMATOCRIT 30.6 % (35.0-51.0); LYMPH # 1.4 K/uL (1.0-4.3); LYMPH % 16.2 % (20.0-40.0); MEAN CELL VOLUME 86.7 fL (80.0-94.0); MEAN CORPUSCULAR HEMOGLOBIN 27.1 pg (27.0-31.0); MEAN CORPUSCULAR HGB CONC 31.3 g/dL (33.0-37.0); MEAN PLATELET VOLUME 7.6 fL (7.2-11.7); MONO # 0.7 K/uL (0.0-0.8); NRBC % 0.1 % (0.0-2.0); RED CELL DISTRIBUTION WIDTH 14.2 % (11.5-14.5); WHITE BLOOD COUNT 8.6 K/uL (4.8-10.8)
--- NOTE | 2016-09-24 07:36 | PN ---
DATE: 09/22/2016 The patient getting supportive care. Continue treatment . Finn Manning MD cc: [id number] TT: 09/22/2016 19:44:45 Confirmation # [id number] Dictation # [id number]
[2016-09-24 07:37] LABS: CHLORIDE 108 mmol/L (98-107); POTASSIUM 4.1 mmol/L (3.6-5.2); SODIUM 140 mmol/L (132-148)
[2016-09-24 07:39] LABS: GFR AFRICAN-AMERICAN > 60
[2016-09-24 07:40] LABS: ALB/GLOB RATIO 0.8 (1.0-2.1); ALKALINE PHOSPHATASE 63 U/L (38-126); ALT/SGPT 19 U/L (21-72); AST/SGOT 15 U/L (17-59); BILIRUBIN,TOTAL 0.5 mg/dL (0.2-1.3); BLOOD UREA NITROGEN 27 mg/dL (9-20); CALCIUM 7.9 mg/dl (8.6-10.4); CARBON DIOXIDE 23 mmol/L (22-30); GLUCOSE,RANDOM 93 mg/dL (75-110); TOTAL PROTEIN 5.7 g/dL (6.3-8.3)
[2016-09-24] MEDS: Megestrol Acetate 40 mg/ml Cup PO SCH (09:05)
--- NOTE | 2016-09-24 12:34 | CP.PCM.PN ---
Subjective - Date & Time of Evaluation Date of Evaluation: 09/24/16 Time of Evaluation: 06:00 - Subjective Subjective: afebrile alert NAD less cough needs 14 days merrem ESBL sputum Objective - Vital Signs/Intake and Output Vital Signs (last 24 hours): Temp Pulse Resp BP Pulse Ox 98 F 88 19 152/72 H 95 09/24/16 07:00 09/24/16 07:00 09/24/16 07:00 09/24/16 07:00 09/24/16 07:00 Intake and Output: 09/24/16 09/24/16 06:59 18:59 Intake Total 300 Output Total 250 Balance 50 - Medications Medications: Current Medications Acetylcysteine (Acetylcysteine 20%) 4 ml INH RQ6 [facility] Last Admin: 09/24/16 07:34 Dose: 4 ml Albuterol Sulfate (Albuterol 0.083% Inhal Luz (2.5 Mg/3 Ml) Ud) 2.5 mg INH RQ6 [facility] Last Admin: 09/24/16 07:34 Dose: 2.5 mg Famotidine (Pepcid) 20 mg PO DAILY [facility] Last Admin: 09/24/16 09:05 Dose: 20 mg Ferrous Sulfate (Feosol) 325 mg PO DAILY [facility] Last Admin: 09/24/16 09:06 Dose: 325 mg Folic Acid (Folic Acid) 1 mg PO DAILY [facility] Last Admin: 09/24/16 09:05 Dose: 1 mg Guaifenesin (Robitussin) 100 mg PO Q4H PRN PRN Reason: Cough Meropenem 500 mg/ Sodium (Chloride) 100 mls @ 100 mls/hr IVPB Q8H [facility] Last Admin: 09/24/16 05:27 Dose: 100 mls/hr Levothyroxine Sodium (Synthroid) 100 mcg PO DAILY@0630 [facility] Last Admin: 09/24/16 05:30 Dose: 100 mcg Megestrol Acetate (Megace) 400 mg PO DAILY [facility] Last Admin: 09/24/16 09:05 Dose: 400 mg Sodium Bicarbonate (Sodium Bicarbonate Tab) 650 mg PO TID [facility] Last Admin: 09/24/16 09:05 Dose: 650 mg Tamsulosin HCl (Flomax) 0.4 mg PO DAILY [facility] Last Admin: 09/24/16 09:05 Dose: 0.4 mg - Labs Labs: 09/24/16 07:00 09/24/16 07:00 PT 13.5 SECONDS (9.7-12.2) H 09/12/16 19:06 INR 1.2 09/12/16 19:06 APTT 28 SECONDS (21-34) 09/12/16 19:06 - Constitutional Appears: Non-toxic, Cachectic, Chronically Ill - Head Exam Head Exam: NORMOCEPHALIC - Eye Exam Eye Exam: PERRL. absent: Scleral icterus - ENT Exam ENT Exam: Mucous Membranes Dry, Normal External Ear Exam - Neck Exam Neck Exam: absent: Lymphadenopathy - Respiratory Exam Respiratory Exam: Decreased Breath Sounds, Rhonchi - Cardiovascular Exam Cardiovascular Exam: REGULAR RHYTHM, +S1, +S2 - GI/Abdominal Exam GI & Abdominal Exam: Distended, Soft. absent: Tenderness - Rectal Exam Rectal Exam: Deferred - Extremities Exam Extremities Exam: absent: Pedal Edema - Back Exam Back Exam: absent: CVA tenderness (L), CVA tenderness (R) - Neurological Exam Neurological Exam: Alert, Awake, Oriented x3 - Psychiatric Exam Psychiatric exam: Depressed - Skin Skin Exam: Dry Assessment and Plan (1) NOEMI (acute kidney injury) Status: Acute (2) Hypotension Status: Acute (3) Pneumonia Status: Acute (4) Severe dehydration Status: Acute (5) Abdominal pain Status: Acute (6) Rheumatoid arthritis Status: Acute (7) COPD (chronic obstructive pulmonary disease) Status: Chronic (8) Hypertension Status: Chronic (9) Renal insufficiency Status: Chronic
--- NOTE | 2016-09-24 13:25 | PN ---
DATE: 09/23/2016 The patient has less shortness of breath. Receiving bronchodilators. Monitor vital signs. Finn Manning MD cc: [id number] TT: 09/24/2016 10:26:07 Confirmation # [id number] Dictation # [id number]
[2016-09-24 14:59] VITALS: BP 140/70; PULSE 86; RESP 18; O2SAT 98
--- NOTE | 2016-09-24 17:50 | CP.PCM.PN ---
Subjective - Date & Time of Evaluation Date of Evaluation: 09/24/16 Time of Evaluation: 11:00 - Subjective Subjective: AWke, alert, remains weak , no acute distress. Objective - Vital Signs/Intake and Output Vital Signs (last 24 hours): Temp Pulse Resp BP Pulse Ox 98 F 86 18 140/70 98 09/24/16 14:58 09/24/16 14:58 09/24/16 14:58 09/24/16 14:58 09/24/16 14:58 Intake and Output: 09/24/16 09/24/16 06:59 18:59 Intake Total 300 375 Output Total 250 340 Balance 50 35 - Labs Labs: 09/24/16 07:00 09/24/16 07:00 PT 13.5 SECONDS (9.7-12.2) H 09/12/16 19:06 INR 1.2 09/12/16 19:06 APTT 28 SECONDS (21-34) 09/12/16 19:06 Assessment and Plan - Assessment and Plan (Free Text) Assessment: Patient with multiple medical issues, seen and examined, remains weak no acute distress. D/W DR Jayson Doan and DR Lorenzana on iv meropenum to complete 14 days. [address]ICC line in place.
== END 2016-09-24 15:45 | DRG 871 ==
LOC: C.ER 18:03 → C.9I 21:02 → C.5T 09-20 11:41
PROVIDERS: ADMIT Internal Medicine Nephrology; ATTEND Internal Medicine Nephrology
PROC: 02HV33Z Insertion of Infusion Device into Superior Vena Cava, Percutaneous Approach (ICD-10-PCS; principal; 2016-09-21)
DX: A41.9 Sepsis, unspecified organism (principal); J18.9 Pneumonia, unspecified organism; J96.90 Respiratory failure, unspecified, unspecified whether with hypoxia or hypercapnia; N17.9 Acute kidney failure, unspecified; G93.41 Metabolic encephalopathy; I13.0 Hypertensive heart and chronic kidney disease with heart failure and stage 1 through stage 4 chronic kidney disease, or unspecified chronic kidney disease; D68.9 Coagulation defect, unspecified; I95.9 Hypotension, unspecified; I50.9 Heart failure, unspecified; F03.90 Unspecified dementia, unspecified severity, without behavioral disturbance, psychotic disturbance, mood disturbance, and anxiety; R65.20 Severe sepsis without septic shock; I48.91 Unspecified atrial fibrillation; J43.9 Emphysema, unspecified; N18.9 Chronic kidney disease, unspecified; E86.0 Dehydration; M19.90 Unspecified osteoarthritis, unspecified site; D64.9 Anemia, unspecified; M81.0 Age-related osteoporosis without current pathological fracture; Z96.642 Presence of left artificial hip joint; Z85.038 Personal history of other malignant neoplasm of large intestine; E03.9 Hypothyroidism, unspecified; Z99.3 Dependence on wheelchair; Z87.891 Personal history of nicotine dependence; M06.9 Rheumatoid arthritis, unspecified; R91.8 Other nonspecific abnormal finding of lung field

== ENCOUNTER 2016-10-26 16:14 | Inpatient (IN) | payer MEDICARE ==
[2016-10-26 16:14] VITALS: PULSE 80; BMI 19.5
--- NOTE | 2016-10-26 16:38 | C.PDOC ---
History Of Present Illness 86 y/o M c PMHx Afib, CHF, COPD from [place] being actively treated for PNA sent for episode of CHF this morning. Patient states that he does not know why he was sent here and denies any shortness of breath, chest pain, palpitations, or any other complaint. Time Seen by Provider: 10/26/16 16:23 Chief Complaint (Nursing): Shortness Of Breath Past Medical History Vital Signs: Last Vital Signs Temp Pulse 98 H 10/26/16 16:21 Resp 22 10/26/16 16:21 BP 125/67 10/26/16 17:08 Pulse Ox 99 10/26/16 17:08 - Medical History PMH: Anemia, Arthritis, Atrial Fibrillation, Bronchitis, CHF, COPD, Emphysema, Gastritis, HTN, Osteoporosis, Pneumonia, Chronic Kidney Disease Denies: Anxiety, Bipolar Disorder, Crohn's Disease, Depression, Diverticulitis, Gall Bladder Disease, HIV, Hypothyroidism, Kidney Stones, Pancreatitis, Post Traumatic Stress Disorder, Rheumatoid Arthritis, Schizophrenia, Sickle Cell Disease, Sexually Transmitted Disease Surgical History: - [facility] Procedures BONE MARROW BIOPSY (10/20/03) CLOSED ENDOSCOPIC BIOPSY OF LARGE INTESTINE (05/02/14) COLONOSCOPY (10/20/03) ESOPHAGOGASTRODUODENOSCOPY [EGD] W/CLOSED BIOPSY (10/20/03) EXCISION OF ASCENDING COLON, ENDO, DIAGN (06/09/16) EXCISION OF LEFT UPPER LUNG LOBE, PERC APPROACH, DIAGN (06/09/16) EXCISION OF SIGMOID COLON, ENDO, DIAGN (06/09/16) EXCISION OF STOMACH, ENDO, DIAGN (06/09/16) INJECT STEROID (10/20/03) INJECTION INTO JOINT (10/20/03) INSERTION OF INFUSION DEV INTO SUP VENA CAVA, PERC APPROACH (09/12/16) INSPECTION OF UPPER INTESTINAL TRACT, ENDO (05/27/16) INTRODUCTION OF NUTRITIONAL INTO PERIPH ART, PERC APPROACH (06/09/16) PACKED CELL TRANSFUSION (10/20/03) RESECTION OF APPENDIX, OPEN APPROACH (06/09/16) RESECTION OF SIGMOID COLON, OPEN APPROACH (06/09/16) TRANSFUSE NONAUT RED BLOOD CELLS IN PERIPH VEIN, PERC (06/09/16) VACCINATION NEC (05/02/14) Family History: States: Unknown Family Hx, Diabetes - Social History Hx Tobacco Use: No (quit 15 yrs ago, was a heavy smoker) Hx Alcohol Use: No Hx Substance Use: No - Immunization History Hx Tetanus Toxoid Vaccination: No Hx Influenza Vaccination: No Hx Pneumococcal Vaccination: No Review Of Systems Except As Marked, All Systems Reviewed And Found Negative. Constitutional: Negative for: Fever Cardiovascular: Negative for: Chest Pain Respiratory: Negative for: Shortness of Breath Physical Exam - Physical Exam Additional Physical Exam Comments: Constitutional: No acute distress. Head: Normocephalic. Atraumatic. Eyes: PERRL. ENT: Moist mucous membranes. Neck: Supple. No JVD. Cardiovascular: Regular rate. Radial pulses 2+ bilaterally. No S3. Chest: No tenderness. Respiratory: Clear to auscultation bilaterally. No respiratory distress. Crackles bilaterally. GI: Soft. Nontender. Nondistended. Back: No CVA tenderness. Musculoskeletal: No tenderness or swelling of extremities. Skin: No rashes. Neurologic: Alert, no focal deficit. ED Course And Treatment - Laboratory Results Result Diagrams: 10/26/16 16:51 10/26/16 16:51 O2 Sat by Pulse Oximetry: 99 Medical Decision Making Medical Decision Makin86 y/o M sent from [place] for CHF exacerbation with no current complaints but with bilateral crackles on exam. Plan: Check labs, vital signs off supplemental O2, CXR, EKG and reassess patient. EKG NS 95 bpm, no ST/T wave changes. CXR shows no pulm edema, does show consolidation. Leukocytosis worsened, also with anemia, dehydration, worsening renal function. Dr. Doan accepts patient to his service on telemetry. Disposition Discussed With : Angelica Doan Doctor Will See Patient In The: Hospital - Disposition Disposition: HOSPITALIZED Disposition Time: 17:44 Condition: GUARDED - POA Core Measure Indicators: Pneumonia - Clinical Impression Clinical Impression: Pneumonia, Leukocytosis, Dehydration, Anemia
[2016-10-26 16:54] LABS: BASO # 0.1 K/uL (0.0-0.2); BASO % 0.5 % (0.0-2.0); EOS # 0.3 K/uL (0.0-0.7); EOS % 1.6 % (0.0-4.0); HEMATOCRIT 25.6 % (35.0-51.0); LYMPH # 0.8 K/uL (1.0-4.3); LYMPH % 4.7 % (20.0-40.0); MEAN CELL VOLUME 84.8 fL (80.0-94.0); MEAN CORPUSCULAR HEMOGLOBIN 26.3 pg (27.0-31.0); MEAN PLATELET VOLUME 7.3 fL (7.2-11.7); MONO # 1.5 K/uL (0.0-0.8); MONO % 8.3 % (0.0-10.0); PLATELET COUNT 294 K/uL (130-400); RED CELL DISTRIBUTION WIDTH 15.1 % (11.5-14.5)
[2016-10-26 17:04] LABS: INR 1.1
[2016-10-26 17:07] LABS: CHLORIDE 107 mmol/L (98-107)
[2016-10-26 17:08] LABS: POTASSIUM 5.3 mmol/L (3.6-5.2); SODIUM 140 mmol/L (132-148)
[2016-10-26 17:10] LABS: AST/SGOT 9 U/L (17-59); BILIRUBIN,TOTAL 0.3 mg/dL (0.2-1.3); CARBON DIOXIDE 24 mmol/L (22-30); GFR AFRICAN-AMERICAN 50
[2016-10-26 17:11] LABS: ALB/GLOB RATIO 0.9 (1.0-2.1); ALKALINE PHOSPHATASE 82 U/L (38-126); ALT/SGPT 20 U/L (21-72); BLOOD UREA NITROGEN 49 mg/dL (9-20); GLUCOSE,RANDOM 88 mg/dL (75-110); TOTAL PROTEIN 6.3 g/dL (6.3-8.3)
--- NOTE | 2016-10-26 17:11 | RAD ---
HISTORY: crackles COMPARISON: 09/15/2016 FINDINGS: The right PICC line terminates in the SVC. LUNGS: There is redemonstration of airspace disease in the lingula slightly improved since the prior examination. The right lung is clear. PLEURA: No significant pleural effusion identified, no pneumothorax apparent. CARDIOVASCULAR: Normal. OSSEOUS STRUCTURES: No significant abnormalities. VISUALIZED UPPER ABDOMEN: Normal. OTHER FINDINGS: None. IMPRESSION: Improving lingular pneumonia. Follow-up to resolution is advised.
[2016-10-26 18:19] LABS: EOSINOPHIL 2 % (0-4); NEUTROPHIL 85 % (50-75); TOTAL CELLS COUNTED 100
[2016-10-26] MEDS ORDERED: Azithromycin 500 MG in Sodium Chloride 0.9% 250 ML IVPB STA (18:25)
[2016-10-26] MEDS ORDERED: cefTRIAXone IV 1 gm in Dextros 50 ML IVPB ONE (18:47)
[2016-10-26] MEDS ORDERED: Azithromycin 500mg/250ML NS 500 MG/250 ML BAG IVPB ONE (18:48)
[2016-10-26] MEDS: guaiFENesin 600 mg ER Tab PO SCH (22:24)
[2016-10-26] MEDS: Albuterol-Ipratrop 3 mg / 0.5 (3 ml) UD INH SCH (23:56)
[2016-10-27] MEDS: Acetylcysteine 20% Inhal Soln (4ml) INH SCH ×3 (03:04→21:21)
[2016-10-27] MEDS: Albuterol-Ipratrop 3 mg / 0.5 (3 ml) UD INH SCH ×4 (03:05→21:21)
[2016-10-27] MEDS: Levothyroxine 100 MCG TAB PO SCH (06:59)
[2016-10-27] MEDS ORDERED: ZINC PO SCH (10:00)
[2016-10-27] MEDS ORDERED: AMINO ACID PO SCH (10:00)
[2016-10-27] MEDS ORDERED: PROTEIN PO SCH (10:00)
[2016-10-27] MEDS ORDERED: VIT C PO SCH (10:00)
[2016-10-27] MEDS: Megestrol Acetate 40 mg/ml Cup PO SCH (10:18)
[2016-10-27] MEDS: Enoxaparin 40 mg Syringe SC SCH (10:18)
[2016-10-27] MEDS: guaiFENesin 600 mg ER Tab PO SCH ×2 (10:18→21:54)
--- NOTE | 2016-10-27 10:29 | CP.PCM.HP ---
Past Patient History - Infectious Disease Hx of Infectious Diseases: None - Past Medical History & Family History Past Medical History?: Yes - Past Social History Smoking Status: Former Smoker - CARDIAC Hx Atrial Fibrillation: Yes Hx Congestive Heart Failure: Yes Hx Hypertension: Yes - PULMONARY Hx Bronchitis: Yes Hx Chronic Obstructive Pulmonary Disease (COPD): Yes Hx Emphysema: Yes Hx Pneumonia: Yes - NEUROLOGICAL Hx Neurological Disorder: No - HEENT Hx HEENT Problems: Yes Hx Cataracts: Yes - RENAL Hx Chronic Kidney Disease: Yes Hx Kidney Stones: No - ENDOCRINE/METABOLIC Hx Hypothyroidism: No - HEMATOLOGICAL/ONCOLOGICAL Hx Anemia: Yes Hx Human Immunodeficiency Virus (HIV): No Hx Sickle Cell Disease: No - INTEGUMENTARY Hx Dermatological Problems: Yes Other/Comment: hx of temporary rashes. SI sacral ulcer - MUSCULOSKELETAL/RHEUMATOLOGICAL Hx Arthritis: Yes Hx Falls: Yes Hx Osteoporosis: Yes Hx Rheumatoid Arthritis: No - GASTROINTESTINAL Hx Crohn's Disease: No Hx Diverticulitis: No Hx Gall Bladder Disease: No Hx Gastritis: Yes Hx Pancreatitis: No - GENITOURINARY/GYNECOLOGICAL Hx Sexually Transmitted Disorders: No - PSYCHIATRIC Hx Anxiety: No Hx Bipolar Disorder: No Hx Depression: No Hx Post Traumatic Stress Disorder: No Hx Schizophrenia: No Hx Substance Use: No - SURGICAL HISTORY Hx Surgeries: Yes Hx Joint Replacement: Yes (left hip replacement) Hx Orthopedic Surgery: Yes (hip surgery) Other/Comment: colon resection 06/2016 - ANESTHESIA Hx Anesthesia: Yes Hx Anesthesia Reactions: No Hx Malignant Hyperthermia: No Meds Allergies/Adverse Reactions: Allergies Allergy/AdvReac Type Severity Reaction Status Date / Time No Known Allergies Allergy Verified 05/27/16 01:08 Physical Exam - Constitutional Appears: Well - Head Exam Head Exam: ATRAUMATIC, NORMAL INSPECTION, NORMOCEPHALIC - Eye Exam Eye Exam: EOMI, Normal appearance, PERRL Pupil Exam: NORMAL ACCOMODATION, PERRL - ENT Exam ENT Exam: Mucous Membranes Moist, Normal Exam - Neck Exam Neck exam: Positive for: Normal Inspection - Respiratory Exam Respiratory Exam: Decreased Breath Sounds - Cardiovascular Exam Cardiovascular Exam: REGULAR RHYTHM, +S1, +S2 - GI/Abdominal Exam GI & Abdominal Exam: Diminished Bowel Sounds, Soft - Rectal Exam Rectal Exam: Deferred Results - Vital Signs Recent Vital Signs: Last Vital Signs Temp 98.2 F 10/27/16 08:48 Pulse 90 10/27/16 08:59 Resp 18 10/27/16 08:48 BP 128/61 10/27/16 08:48 Pulse Ox 97 10/27/16 08:48 - Labs Result Diagrams: 10/26/16 16:51 10/26/16 16:51
[2016-10-27] MEDS: Bacitracin Ointment 30 GM TUBE TOP SCH ×2 (15:02→21:56)
--- NOTE | 2016-10-27 16:25 | CP.PCM.CON ---
Past Patient History - Infectious Disease Hx of Infectious Diseases: None - Past Medical History & Family History Past Medical History?: Yes - Past Social History Smoking Status: Former Smoker - CARDIAC Hx Atrial Fibrillation: Yes Hx Congestive Heart Failure: Yes Hx Hypertension: Yes - PULMONARY Hx Bronchitis: Yes Hx Chronic Obstructive Pulmonary Disease (COPD): Yes Hx Emphysema: Yes Hx Pneumonia: Yes - NEUROLOGICAL Hx Neurological Disorder: No - HEENT Hx HEENT Problems: Yes Hx Cataracts: Yes - RENAL Hx Chronic Kidney Disease: Yes Hx Kidney Stones: No - ENDOCRINE/METABOLIC Hx Hypothyroidism: No - HEMATOLOGICAL/ONCOLOGICAL Hx Anemia: Yes Hx Human Immunodeficiency Virus (HIV): No Hx Sickle Cell Disease: No - INTEGUMENTARY Hx Dermatological Problems: Yes Other/Comment: hx of temporary rashes. SI sacral ulcer - MUSCULOSKELETAL/RHEUMATOLOGICAL Hx Arthritis: Yes Hx Falls: Yes Hx Osteoporosis: Yes Hx Rheumatoid Arthritis: No - GASTROINTESTINAL Hx Crohn's Disease: No Hx Diverticulitis: No Hx Gall Bladder Disease: No Hx Gastritis: Yes Hx Pancreatitis: No - GENITOURINARY/GYNECOLOGICAL Hx Sexually Transmitted Disorders: No - PSYCHIATRIC Hx Anxiety: No Hx Bipolar Disorder: No Hx Depression: No Hx Post Traumatic Stress Disorder: No Hx Schizophrenia: No Hx Substance Use: No - SURGICAL HISTORY Hx Surgeries: Yes Hx Joint Replacement: Yes (left hip replacement) Hx Orthopedic Surgery: Yes (hip surgery) Other/Comment: colon resection 06/2016 - ANESTHESIA Hx Anesthesia: Yes Hx Anesthesia Reactions: No Hx Malignant Hyperthermia: No Meds Allergies/Adverse Reactions: Allergies Allergy/AdvReac Type Severity Reaction Status Date / Time No Known Allergies Allergy Verified 05/27/16 01:08 - Medications Medications: Current Medications Acetaminophen (Tylenol 325mg Tab) 650 mg PO Q4 PRN PRN Reason: Pain, Mild (1-3) Acetylcysteine (Acetylcysteine 20%) 4 ml INH RQ6 [facility] Last Admin: 10/27/16 08:54 Dose: 4 ml Albuterol/Ipratropium (Duoneb 3 Mg/0.5 Mg (3 Ml) Ud) 3 ml INH RQ6 [facility] Albuterol/Ipratropium (Duoneb 3 Mg/0.5 Mg (3 Ml) Ud) 3 ml INH RQ6 [facility] Bacitracin (Bacitracin) 0 gm TOP QSHIFT [facility] Last Admin: 10/27/16 15:02 Dose: Not Given Enoxaparin Sodium (Lovenox) 40 mg SC DAILY [facility] Last Admin: 10/27/16 10:18 Dose: 40 mg Famotidine (Pepcid) 20 mg PO DAILY [facility] Last Admin: 10/27/16 10:18 Dose: 20 mg Ferrous Sulfate (Feosol) 325 mg PO DAILY [facility] Last Admin: 10/27/16 10:18 Dose: 325 mg Folic Acid (Folic Acid) 1 mg PO DAILY [facility] Last Admin: 10/27/16 10:18 Dose: 1 mg Guaifenesin (Mucinex La) 600 mg PO Q12 [facility] Last Admin: 10/27/16 10:18 Dose: 600 mg Azithromycin 500 mg/ Sodium (Chloride) 250 mls @ 250 mls/hr IVPB Q24H [facility] Ceftriaxone Sodium 1 gm/ (Sodium Chloride) 100 mls @ 100 mls/hr IVPB Q24H [facility] Levothyroxine Sodium (Synthroid) 100 mcg PO DAILY@0630 [facility] Last Admin: 10/27/16 06:59 Dose: 100 mcg Megestrol Acetate (Megace) 400 mg PO DAILY [facility] Last Admin: 10/27/16 10:18 Dose: 400 mg Sodium Bicarbonate (Sodium Bicarbonate Tab) 650 mg PO TID [facility] Last Admin: 10/27/16 15:00 Dose: Not Given Tamsulosin HCl (Flomax) 0.4 mg PO DAILY [facility] Last Admin: 10/27/16 10:18 Dose: 0.4 mg Results - Vital Signs Recent Vital Signs: Last Vital Signs Temp 98.6 F 10/27/16 15:35 Pulse 86 10/27/16 15:35 Resp 20 10/27/16 15:35 BP 113/65 10/27/16 15:35 Pulse Ox 96 10/27/16 15:35 - Labs Result Diagrams: 10/26/16 16:51 10/26/16 16:51
[2016-10-27 16:57] LABS: BASO # 0.1 K/uL (0.0-0.2); BASO % 1.1 % (0.0-2.0); EOS # 0.5 K/uL (0.0-0.7); EOS % 5.6 % (0.0-4.0); HEMATOCRIT 24.7 % (35.0-51.0); LYMPH # 1.1 K/uL (1.0-4.3); LYMPH % 11.7 % (20.0-40.0); MEAN CELL VOLUME 84.5 fL (80.0-94.0); MEAN CORPUSCULAR HEMOGLOBIN 26.7 pg (27.0-31.0); MEAN CORPUSCULAR HGB CONC 31.6 g/dL (33.0-37.0); MEAN PLATELET VOLUME 7.3 fL (7.2-11.7); MONO # 0.7 K/uL (0.0-0.8); MONO % 7.6 % (0.0-10.0); RED CELL DISTRIBUTION WIDTH 15.8 % (11.5-14.5); WHITE BLOOD COUNT 9.7 K/uL (4.8-10.8)
[2016-10-27] MEDS: Azithromycin 500 MG in Sodium Chloride 0.9% 250 ML IVPB SCH (19:43)
[2016-10-28] MEDS: Albuterol-Ipratrop 3 mg / 0.5 (3 ml) UD INH SCH ×4 (01:48→19:54)
[2016-10-28] MEDS: Acetylcysteine 20% Inhal Soln (4ml) INH SCH ×4 (01:48→19:54)
[2016-10-28] MEDS: Levothyroxine 100 MCG TAB PO SCH (05:57)
[2016-10-28] MEDS: Bacitracin 500 Units/gm Oint Foilpak UD TOP SCH ×3 (06:05→21:19)
[2016-10-28] MEDS: Megestrol Acetate 40 mg/ml Cup PO SCH (10:07)
[2016-10-28] MEDS: guaiFENesin 600 mg ER Tab PO SCH ×2 (10:07→21:18)
[2016-10-28] MEDS: Enoxaparin 40 mg Syringe SC SCH (10:07)
--- NOTE | 2016-10-28 18:11 | CP.PCM.PN ---
Subjective - Date & Time of Evaluation Date of Evaluation: 10/28/16 Time of Evaluation: 18:10 Objective - Vital Signs/Intake and Output Vital Signs (last 24 hours): Temp Pulse Resp BP Pulse Ox 98.1 F 99 H 20 106/64 95 10/28/16 15:52 10/28/16 15:56 10/28/16 15:52 10/28/16 15:52 10/28/16 15:52 Intake and Output: 10/28/16 10/28/16 06:59 18:59 Intake Total 120 Balance 120 - Medications Medications: Current Medications Acetaminophen (Tylenol 325mg Tab) 650 mg PO Q4 PRN PRN Reason: Pain, Mild (1-3) Acetylcysteine (Acetylcysteine 20%) 4 ml INH RQ6 [facility] Last Admin: 10/28/16 13:57 Dose: 4 ml Albuterol/Ipratropium (Duoneb 3 Mg/0.5 Mg (3 Ml) Ud) 3 ml INH RQ6 [facility] Last Admin: 10/28/16 13:57 Dose: 3 ml Albuterol/Ipratropium (Duoneb 3 Mg/0.5 Mg (3 Ml) Ud) 3 ml INH RQ6 [facility] Bacitracin (Bacitracin) 0 ea TOP QSHIFT [facility] Last Admin: 10/28/16 13:54 Dose: 1 ea Enoxaparin Sodium (Lovenox) 40 mg SC DAILY [facility] Last Admin: 10/28/16 10:07 Dose: 40 mg Famotidine (Pepcid) 20 mg PO DAILY [facility] Last Admin: 10/28/16 10:07 Dose: 20 mg Ferrous Sulfate (Feosol) 325 mg PO DAILY [facility] Last Admin: 10/28/16 10:07 Dose: 325 mg Folic Acid (Folic Acid) 1 mg PO DAILY [facility] Last Admin: 10/28/16 10:07 Dose: 1 mg Guaifenesin (Mucinex La) 600 mg PO Q12 [facility] Last Admin: 10/28/16 10:07 Dose: 600 mg Azithromycin 500 mg/ Sodium (Chloride) 250 mls @ 250 mls/hr IVPB Q24H [facility] Last Admin: 10/27/16 19:43 Dose: 250 mls/hr Ceftriaxone Sodium 1 gm/ (Sodium Chloride) 100 mls @ 100 mls/hr IVPB Q24H [facility] Last Admin: 10/28/16 17:08 Dose: 100 mls/hr Levothyroxine Sodium (Synthroid) 100 mcg PO DAILY@0630 [facility] Last Admin: 10/28/16 05:57 Dose: 100 mcg Megestrol Acetate (Megace) 400 mg PO DAILY [facility] Last Admin: 10/28/16 10:07 Dose: 400 mg Sodium Bicarbonate (Sodium Bicarbonate Tab) 650 mg PO TID [facility] Last Admin: 10/28/16 17:08 Dose: 650 mg Tamsulosin HCl (Flomax) 0.4 mg PO DAILY [facility] Last Admin: 10/28/16 10:07 Dose: 0.4 mg - Labs Labs: 10/27/16 16:54 PT 12.5 SECONDS (9.7-12.2) H 10/26/16 16:51 INR 1.1 10/26/16 16:51 APTT 27 SECONDS (21-34) 10/26/16 16:51
[2016-10-28] MEDS: Azithromycin 500 MG in Sodium Chloride 0.9% 250 ML IVPB SCH (18:33)
[2016-10-29] MEDS: Acetylcysteine 20% Inhal Soln (4ml) INH SCH ×4 (01:51→20:55)
[2016-10-29] MEDS: Levothyroxine 100 MCG TAB PO SCH (05:58)
[2016-10-29] MEDS: Bacitracin 500 Units/gm Oint Foilpak UD TOP SCH ×3 (05:58→21:55)
[2016-10-29] MEDS: Enoxaparin 40 mg Syringe SC SCH (09:33)
[2016-10-29] MEDS: Megestrol Acetate 40 mg/ml Cup PO SCH (09:33)
[2016-10-29] MEDS: guaiFENesin 600 mg ER Tab PO SCH ×2 (09:34→21:52)
[2016-10-29] MEDS: Albuterol-Ipratrop 3 mg / 0.5 (3 ml) UD INH SCH ×3 (10:11→20:55)
[2016-10-29 11:21] LABS: BASO # 0.1 K/uL (0.0-0.2); BASO % 1.6 % (0.0-2.0); EOS # 0.6 K/uL (0.0-0.7); EOS % 8.4 % (0.0-4.0); HEMATOCRIT 27.1 % (35.0-51.0); LYMPH # 1.2 K/uL (1.0-4.3); LYMPH % 15.9 % (20.0-40.0); MEAN CELL VOLUME 85.6 fL (80.0-94.0); MEAN CORPUSCULAR HEMOGLOBIN 26.3 pg (27.0-31.0); MEAN CORPUSCULAR HGB CONC 30.7 g/dL (33.0-37.0); MONO # 0.7 K/uL (0.0-0.8); MONO % 9.1 % (0.0-10.0); WHITE BLOOD COUNT 7.5 K/uL (4.8-10.8)
[2016-10-29 11:33] LABS: POTASSIUM 4.6 mmol/L (3.6-5.2)
[2016-10-29 11:35] LABS: BILIRUBIN,TOTAL 0.3 mg/dL (0.2-1.3); TOTAL PROTEIN 6.1 g/dL (6.3-8.3)
[2016-10-29 11:36] LABS: CALCIUM 8.1 mg/dl (8.6-10.4)
--- NOTE | 2016-10-29 15:41 | CP.PCM.PN ---
Subjective - Date & Time of Evaluation Date of Evaluation: 10/29/16 Time of Evaluation: 15:41 Objective - Vital Signs/Intake and Output Vital Signs (last 24 hours): Temp Pulse Resp BP Pulse Ox 98.9 F 79 18 143/76 95 10/29/16 07:10 10/29/16 08:56 10/29/16 07:10 10/29/16 07:10 10/29/16 07:10 Intake and Output: 10/29/16 10/29/16 06:59 18:59 Intake Total 450 Output Total 500 Balance -50 - Medications Medications: Current Medications Acetaminophen (Tylenol 325mg Tab) 650 mg PO Q4 PRN PRN Reason: Pain, Mild (1-3) Acetylcysteine (Acetylcysteine 20%) 4 ml INH RQ6 [facility] Last Admin: 10/29/16 10:11 Dose: Not Given Albuterol/Ipratropium (Duoneb 3 Mg/0.5 Mg (3 Ml) Ud) 3 ml INH RQ6 [facility] Last Admin: 10/29/16 10:11 Dose: Not Given Albuterol/Ipratropium (Duoneb 3 Mg/0.5 Mg (3 Ml) Ud) 3 ml INH RQ6 [facility] Bacitracin (Bacitracin) 0 ea TOP QSHIFT [facility] Last Admin: 10/29/16 13:42 Dose: Not Given Enoxaparin Sodium (Lovenox) 40 mg SC DAILY [facility] Last Admin: 10/29/16 09:33 Dose: 40 mg Famotidine (Pepcid) 20 mg PO DAILY [facility] Last Admin: 10/29/16 09:34 Dose: 20 mg Ferrous Sulfate (Feosol) 325 mg PO DAILY [facility] Last Admin: 10/29/16 09:34 Dose: 325 mg Folic Acid (Folic Acid) 1 mg PO DAILY [facility] Last Admin: 10/29/16 09:34 Dose: 1 mg Guaifenesin (Mucinex La) 600 mg PO Q12 [facility] Last Admin: 10/29/16 09:34 Dose: 600 mg Azithromycin 500 mg/ Sodium (Chloride) 250 mls @ 250 mls/hr IVPB Q24H [facility] Last Admin: 10/28/16 18:33 Dose: 250 mls/hr Ceftriaxone Sodium 1 gm/ (Sodium Chloride) 100 mls @ 100 mls/hr IVPB Q24H [facility] Last Admin: 10/28/16 17:08 Dose: 100 mls/hr Levothyroxine Sodium (Synthroid) 100 mcg PO DAILY@0630 [facility] Last Admin: 10/29/16 05:58 Dose: 100 mcg Megestrol Acetate (Megace) 400 mg PO DAILY [facility] Last Admin: 10/29/16 09:33 Dose: 400 mg Sodium Bicarbonate (Sodium Bicarbonate Tab) 650 mg PO TID [facility] Last Admin: 10/29/16 13:42 Dose: 650 mg Tamsulosin HCl (Flomax) 0.4 mg PO DAILY [facility] Last Admin: 10/29/16 09:34 Dose: 0.4 mg - Labs Labs: 10/29/16 11:06 10/29/16 11:06 PT 12.5 SECONDS (9.7-12.2) H 10/26/16 16:51 INR 1.1 10/26/16 16:51 APTT 27 SECONDS (21-34) 10/26/16 16:51
[2016-10-29 15:53] VITALS: RESP 20
--- NOTE | 2016-10-29 17:02 | CP.PCM.PN ---
Subjective - Date & Time of Evaluation Date of Evaluation: 10/29/16 Time of Evaluation: 12:00 - Subjective Subjective: clinically same Objective - Vital Signs/Intake and Output Vital Signs (last 24 hours): Temp Pulse Resp BP Pulse Ox 98.2 F 87 20 110/62 97 10/29/16 15:46 10/29/16 15:46 10/29/16 15:46 10/29/16 15:46 10/29/16 15:46 Intake and Output: 10/29/16 10/29/16 06:59 18:59 Intake Total 450 Output Total 500 Balance -50 - Medications Medications: Current Medications Acetaminophen (Tylenol 325mg Tab) 650 mg PO Q4 PRN PRN Reason: Pain, Mild (1-3) Acetylcysteine (Acetylcysteine 20%) 4 ml INH RQ6 [facility] Last Admin: 10/29/16 10:11 Dose: Not Given Albuterol/Ipratropium (Duoneb 3 Mg/0.5 Mg (3 Ml) Ud) 3 ml INH RQ6 [facility] Bacitracin (Bacitracin) 0 ea TOP QSHIFT [facility] Last Admin: 10/29/16 13:42 Dose: Not Given Enoxaparin Sodium (Lovenox) 40 mg SC DAILY [facility] Last Admin: 10/29/16 09:33 Dose: 40 mg Famotidine (Pepcid) 20 mg PO DAILY [facility] Last Admin: 10/29/16 09:34 Dose: 20 mg Ferrous Sulfate (Feosol) 325 mg PO DAILY [facility] Last Admin: 10/29/16 09:34 Dose: 325 mg Folic Acid (Folic Acid) 1 mg PO DAILY [facility] Last Admin: 10/29/16 09:34 Dose: 1 mg Guaifenesin (Mucinex La) 600 mg PO Q12 [facility] Last Admin: 10/29/16 09:34 Dose: 600 mg Azithromycin 500 mg/ Sodium (Chloride) 250 mls @ 250 mls/hr IVPB Q24H [facility] Last Admin: 10/28/16 18:33 Dose: 250 mls/hr Ceftriaxone Sodium 1 gm/ (Sodium Chloride) 100 mls @ 100 mls/hr IVPB Q24H [facility] Last Admin: 10/28/16 17:08 Dose: 100 mls/hr Levothyroxine Sodium (Synthroid) 100 mcg PO DAILY@0630 [facility] Last Admin: 10/29/16 05:58 Dose: 100 mcg Megestrol Acetate (Megace) 400 mg PO DAILY [facility] Last Admin: 10/29/16 09:33 Dose: 400 mg Sodium Bicarbonate (Sodium Bicarbonate Tab) 650 mg PO TID [facility] Last Admin: 10/29/16 13:42 Dose: 650 mg Tamsulosin HCl (Flomax) 0.4 mg PO DAILY [facility] Last Admin: 10/29/16 09:34 Dose: 0.4 mg - Labs Labs: 10/29/16 11:06 10/29/16 11:06 PT 12.5 SECONDS (9.7-12.2) H 10/26/16 16:51 INR 1.1 10/26/16 16:51 APTT 27 SECONDS (21-34) 10/26/16 16:51 - Constitutional Appears: Well - Head Exam Head Exam: ATRAUMATIC, NORMAL INSPECTION, NORMOCEPHALIC - Eye Exam Eye Exam: EOMI, Normal appearance, PERRL Pupil Exam: NORMAL ACCOMODATION, PERRL - ENT Exam ENT Exam: Mucous Membranes Moist, Normal Exam - Neck Exam Neck Exam: Full ROM, Normal Inspection. absent: Lymphadenopathy - Respiratory Exam Respiratory Exam: Decreased Breath Sounds - Cardiovascular Exam Cardiovascular Exam: REGULAR RHYTHM, +S1, +S2 - GI/Abdominal Exam GI & Abdominal Exam: Soft, Diminished Bowel Sounds - Rectal Exam Rectal Exam: Deferred
[2016-10-29] MEDS: Azithromycin 500 MG in Sodium Chloride 0.9% 250 ML IVPB SCH (17:19)
--- NOTE | 2016-10-29 21:19 | CP.PCM.CON ---
History of Present Illness - History of Present Illness History of Present Illness: History Of Present Illness 86 y/o M c PMHx Aof CHF, COPD from NH being actively treated for PNA sent for episode of CHF this morning. Patient states that he does not know why he was sent here and denies any shortness of breath, chest pain, palpitations, or any other complaint. Chief Complaint (Nursing): Shortness Of Breath - Medical History PMH: Anemia, Arthritis, Atrial Fibrillation, Bronchitis, CHF, COPD, Emphysema, Gastritis, HTN, Osteoporosis, Pneumonia, Chronic Kidney Disease Denies: Anxiety, Bipolar Disorder, Crohn's Disease, Depression, Diverticulitis, Gall Bladder Disease, HIV, Hypothyroidism, Kidney Stones, Pancreatitis, Post Traumatic Stress Disorder, Rheumatoid Arthritis, Schizophrenia, Sickle Cell Disease, Sexually Transmitted Disease Surgical History: - [facility] Procedures BONE MARROW BIOPSY (10/20/03) CLOSED ENDOSCOPIC BIOPSY OF LARGE INTESTINE (05/02/14) COLONOSCOPY (10/20/03) ESOPHAGOGASTRODUODENOSCOPY [EGD] W/CLOSED BIOPSY (10/20/03) EXCISION OF ASCENDING COLON, ENDO, DIAGN (06/09/16) EXCISION OF LEFT UPPER LUNG LOBE, PERC APPROACH, DIAGN (06/09/16) EXCISION OF SIGMOID COLON, ENDO, DIAGN (06/09/16) EXCISION OF STOMACH, ENDO, DIAGN (06/09/16) INJECT STEROID (10/20/03) INJECTION INTO JOINT (10/20/03) INSERTION OF INFUSION DEV INTO SUP VENA CAVA, PERC APPROACH (09/12/16) INSPECTION OF UPPER INTESTINAL TRACT, ENDO (05/27/16) INTRODUCTION OF NUTRITIONAL INTO PERIPH ART, PERC APPROACH (06/09/16) PACKED CELL TRANSFUSION (10/20/03) RESECTION OF APPENDIX, OPEN APPROACH (06/09/16) RESECTION OF SIGMOID COLON, OPEN APPROACH (06/09/16) TRANSFUSE NONAUT RED BLOOD CELLS IN PERIPH VEIN, PERC (06/09/16) VACCINATION NEC (05/02/14) Family History: States: Unknown Family Hx, Diabetes - Social History Hx Tobacco Use: No (quit 15 yrs ago, was a heavy smoker) Hx Alcohol Use: No Hx Substance Use: No - Immunization History Hx Tetanus Toxoid Vaccination: No Hx Influenza Vaccination: No Hx Pneumococcal Vaccination: No Review Of Systems Except As Marked, All Systems Reviewed And Found Negative. Constitutional: Negative for: Fever Cardiovascular: Negative for: Chest Pain Respiratory: Negative for: Shortness of Breath Physical Exam - Physical Exam Additional Physical Exam Comments: Constitutional: No acute distress. Head: Normocephalic. Atraumatic. Eyes: PERRL. ENT: Moist mucous membranes. Neck: Supple. No JVD. Cardiovascular: Regular rate. Radial pulses 2+ bilaterally. No S3. Chest: No tenderness. Respiratory: Clear to auscultation bilaterally. No respiratory distress. Crackles bilaterally. GI: Soft. Nontender. Nondistended. Back: No CVA tenderness. Musculoskeletal: No tenderness or swelling of extremities. Skin: No rashes. Neurologic: Alert, no focal deficit. Past Patient History - Infectious Disease Hx of Infectious Diseases: None - Past Medical History & Family History Past Medical History?: Yes - Past Social History Smoking Status: Former Smoker - CARDIAC Hx Atrial Fibrillation: Yes Hx Congestive Heart Failure: Yes Hx Hypertension: Yes - PULMONARY Hx Bronchitis: Yes Hx Chronic Obstructive Pulmonary Disease (COPD): Yes Hx Emphysema: Yes Hx Pneumonia: Yes - NEUROLOGICAL Hx Neurological Disorder: No - HEENT Hx HEENT Problems: Yes Hx Cataracts: Yes - RENAL Hx Chronic Kidney Disease: Yes Hx Kidney Stones: No - ENDOCRINE/METABOLIC Hx Hypothyroidism: No - HEMATOLOGICAL/ONCOLOGICAL Hx Anemia: Yes Hx Human Immunodeficiency Virus (HIV): No Hx Sickle Cell Disease: No - INTEGUMENTARY Hx Dermatological Problems: Yes Other/Comment: hx of temporary rashes. SI sacral ulcer - MUSCULOSKELETAL/RHEUMATOLOGICAL Hx Arthritis: Yes Hx Falls: Yes Hx Osteoporosis: Yes Hx Rheumatoid Arthritis: No - GASTROINTESTINAL Hx Crohn's Disease: No Hx Diverticulitis: No Hx Gall Bladder Disease: No Hx Gastritis: Yes Hx Pancreatitis: No - GENITOURINARY/GYNECOLOGICAL Hx Sexually Transmitted Disorders: No - PSYCHIATRIC Hx Anxiety: No Hx Bipolar Disorder: No Hx Depression: No Hx Post Traumatic Stress Disorder: No Hx Schizophrenia: No Hx Substance Use: No - SURGICAL HISTORY Hx Surgeries: Yes Hx Joint Replacement: Yes (left hip replacement) Hx Orthopedic Surgery: Yes (hip surgery) Other/Comment: colon resection 06/2016 - ANESTHESIA Hx Anesthesia: Yes Hx Anesthesia Reactions: No Hx Malignant Hyperthermia: No Meds Allergies/Adverse Reactions: Allergies Allergy/AdvReac Type Severity Reaction Status Date / Time No Known Allergies Allergy Verified 05/27/16 01:08 - Medications Medications: Current Medications Acetaminophen (Tylenol 325mg Tab) 650 mg PO Q4 PRN PRN Reason: Pain, Mild (1-3) Acetylcysteine (Acetylcysteine 20%) 4 ml INH RQ6 [facility] Last Admin: 10/29/16 20:55 Dose: 4 ml Albuterol/Ipratropium (Duoneb 3 Mg/0.5 Mg (3 Ml) Ud) 3 ml INH RQ6 [facility] Last Admin: 10/29/16 20:55 Dose: 3 ml Bacitracin (Bacitracin) 0 ea TOP QSHIFT [facility] Last Admin: 10/29/16 13:42 Dose: Not Given Enoxaparin Sodium (Lovenox) 40 mg SC DAILY [facility] Last Admin: 10/29/16 09:33 Dose: 40 mg Famotidine (Pepcid) 20 mg PO DAILY [facility] Last Admin: 10/29/16 09:34 Dose: 20 mg Ferrous Sulfate (Feosol) 325 mg PO DAILY [facility] Last Admin: 10/29/16 09:34 Dose: 325 mg Folic Acid (Folic Acid) 1 mg PO DAILY [facility] Last Admin: 10/29/16 09:34 Dose: 1 mg Guaifenesin (Mucinex La) 600 mg PO Q12 [facility] Last Admin: 10/29/16 09:34 Dose: 600 mg Azithromycin 500 mg/ Sodium (Chloride) 250 mls @ 250 mls/hr IVPB Q24H [facility] Last Admin: 10/29/16 17:19 Dose: 250 mls/hr Ceftriaxone Sodium 1 gm/ (Sodium Chloride) 100 mls @ 100 mls/hr IVPB Q24H [facility] Last Admin: 10/29/16 17:19 Dose: 100 mls/hr Levothyroxine Sodium (Synthroid) 100 mcg PO DAILY@0630 [facility] Last Admin: 10/29/16 05:58 Dose: 100 mcg Megestrol Acetate (Megace) 400 mg PO DAILY [facility] Last Admin: 10/29/16 09:33 Dose: 400 mg Sodium Bicarbonate (Sodium Bicarbonate Tab) 650 mg PO TID [facility] Last Admin: 10/29/16 17:19 Dose: 650 mg Tamsulosin HCl (Flomax) 0.4 mg PO DAILY [facility] Last Admin: 10/29/16 09:34 Dose: 0.4 mg Results - Vital Signs Recent Vital Signs: Last Vital Signs Temp 98.2 F 10/29/16 15:46 Pulse 87 10/29/16 15:46 Resp 20 10/29/16 15:46 BP 110/62 10/29/16 15:46 Pulse Ox 97 10/29/16 15:46 - Labs Result Diagrams: 10/29/16 11:06 10/29/16 11:06 Labs: Laboratory Results - last 24 hr 10/29/16 10/29/16 11:06 11:06 WBC 7.5 RBC 3.16 L Hgb 8.3 L Hct 27.1 L MCV 85.6 MCH 26.3 L MCHC 30.7 L RDW 16.0 H Plt Count 323 MPV 8.0 Neut % (Auto) 65.0 Lymph % (Auto) 15.9 L Bradley % (Auto) 9.1 Eos % (Auto) 8.4 H Baso % (Auto) 1.6 Neut # 4.9 Lymph # 1.2 Bradley # 0.7 Eos # 0.6 Baso # 0.1 Sodium 144 Potassium 4.6 Chloride 111 H Carbon Dioxide 22 Anion Gap 16 BUN 42 H Creatinine 1.6 H Est GFR ( Amer) 50 Est GFR (Non-Af Amer) 41 Random Glucose 91 Calcium 8.1 L Total Bilirubin 0.3 AST 12 L D ALT 13 L D Alkaline Phosphatase 76 Total Protein 6.1 L Albumin 3.0 L Globulin 3.1 Albumin/Globulin Ratio 1.0 Assessment & Plan - Assessment and Plan (Free Text) Assessment: 1. Diastolic CHF 2. HTN 3. Hyperlipidemia ECHO reviewed. EF normal Clinically stable Continue all meds
[2016-10-30] MEDS: Albuterol-Ipratrop 3 mg / 0.5 (3 ml) UD INH SCH ×3 (02:35→13:40)
[2016-10-30] MEDS: Acetylcysteine 20% Inhal Soln (4ml) INH SCH ×3 (02:35→13:39)
[2016-10-30] MEDS: Levothyroxine 100 MCG TAB PO SCH (06:19)
[2016-10-30] MEDS: Bacitracin 500 Units/gm Oint Foilpak UD TOP SCH ×2 (06:21→14:03)
[2016-10-30 08:02] LABS: BASO % 0.3 % (0.0-2.0); EOS # 0.6 K/uL (0.0-0.7); EOS % 7.8 % (0.0-4.0); HEMATOCRIT 27.7 % (35.0-51.0); LYMPH # 1.5 K/uL (1.0-4.3); LYMPH % 17.8 % (20.0-40.0); MEAN CELL VOLUME 86.5 fL (80.0-94.0); MEAN CORPUSCULAR HEMOGLOBIN 26.6 pg (27.0-31.0); MEAN CORPUSCULAR HGB CONC 30.7 g/dL (33.0-37.0); MEAN PLATELET VOLUME 7.9 fL (7.2-11.7); MONO # 0.7 K/uL (0.0-0.8); MONO % 8.2 % (0.0-10.0); NRBC % 0.4 % (0.0-2.0); RED CELL DISTRIBUTION WIDTH 16.2 % (11.5-14.5); WHITE BLOOD COUNT 8.3 K/uL (4.8-10.8)
[2016-10-30 08:15] LABS: POTASSIUM 5.2 mmol/L (3.6-5.2)
[2016-10-30 08:17] LABS: BILIRUBIN,TOTAL 0.4 mg/dL (0.2-1.3)
[2016-10-30 08:18] LABS: ALB/GLOB RATIO 0.9 (1.0-2.1); CALCIUM 8.3 mg/dl (8.6-10.4); TOTAL PROTEIN 6.2 g/dL (6.3-8.3)
[2016-10-30 10:03] VITALS: O2SAT 95
[2016-10-30] MEDS: Megestrol Acetate 40 mg/ml Cup PO SCH (10:06)
[2016-10-30] MEDS: Enoxaparin 40 mg Syringe SC SCH (10:06)
[2016-10-30] MEDS: guaiFENesin 600 mg ER Tab PO SCH (10:07)
--- NOTE | 2016-10-30 11:59 | CP.PCM.PN ---
Subjective - Date & Time of Evaluation Date of Evaluation: 10/30/16 Time of Evaluation: 07:55 - Subjective Subjective: PGY2 Medicine Note - Dr. Gill's / Dr. Doan's Service Patient seen and examined at bedside. No overnight events per nursing. Patient is resting comfortably, however reports weakness and mild SOB. Denies f/c, headache, blurry vision, chest pain, palpitations, abdominal pain, n/v, d/c, dysuria, urinary frequency, or any other acute complaints. Objective - Vital Signs/Intake and Output Vital Signs (last 24 hours): Temp Pulse Resp BP Pulse Ox 98.6 F 77 20 130/64 95 10/30/16 07:00 10/30/16 07:00 10/30/16 07:00 10/30/16 07:00 10/30/16 07:00 Intake and Output: 10/30/16 10/30/16 06:59 18:59 Output Total 200 Balance -200 - Medications Medications: Current Medications Acetaminophen (Tylenol 325mg Tab) 650 mg PO Q4 PRN PRN Reason: Pain, Mild (1-3) Acetylcysteine (Acetylcysteine 20%) 4 ml INH RQ6 [facility] Last Admin: 10/30/16 07:38 Dose: Not Given Albuterol/Ipratropium (Duoneb 3 Mg/0.5 Mg (3 Ml) Ud) 3 ml INH RQ6 [facility] Last Admin: 10/30/16 07:38 Dose: Not Given Bacitracin (Bacitracin) 0 ea TOP QSHIFT [facility] Last Admin: 10/30/16 06:21 Dose: 1 ea Enoxaparin Sodium (Lovenox) 40 mg SC DAILY [facility] Last Admin: 10/30/16 10:06 Dose: 40 mg Famotidine (Pepcid) 20 mg PO DAILY [facility] Last Admin: 10/30/16 10:07 Dose: 20 mg Ferrous Sulfate (Feosol) 325 mg PO DAILY [facility] Last Admin: 10/30/16 10:07 Dose: 325 mg Folic Acid (Folic Acid) 1 mg PO DAILY [facility] Last Admin: 10/30/16 10:07 Dose: 1 mg Guaifenesin (Mucinex La) 600 mg PO Q12 [facility] Last Admin: 10/30/16 10:07 Dose: 600 mg Azithromycin 500 mg/ Sodium (Chloride) 250 mls @ 250 mls/hr IVPB Q24H [facility] Last Admin: 10/29/16 17:19 Dose: 250 mls/hr Ceftriaxone Sodium 1 gm/ (Sodium Chloride) 100 mls @ 100 mls/hr IVPB Q24H [facility] Last Admin: 10/29/16 17:19 Dose: 100 mls/hr Levothyroxine Sodium (Synthroid) 100 mcg PO DAILY@0630 [facility] Last Admin: 10/30/16 06:19 Dose: 100 mcg Megestrol Acetate (Megace) 400 mg PO DAILY [facility] Last Admin: 10/30/16 10:06 Dose: 400 mg Sodium Bicarbonate (Sodium Bicarbonate Tab) 650 mg PO TID [facility] Last Admin: 10/30/16 10:06 Dose: 650 mg Tamsulosin HCl (Flomax) 0.4 mg PO DAILY [facility] Last Admin: 10/30/16 10:07 Dose: 0.4 mg - Labs Labs: 10/30/16 07:53 10/30/16 07:53 PT 12.5 SECONDS (9.7-12.2) H 10/26/16 16:51 INR 1.1 10/26/16 16:51 APTT 27 SECONDS (21-34) 10/26/16 16:51 Assessment and Plan - Assessment and Plan (Free Text) Assessment: Diastolic CHF Pneumonia HTN Hyperlipidemia ECHO reviewed. EF normal Clinically stable
--- NOTE | 2016-10-30 14:56 | CP.PCM.PN ---
Subjective - Date & Time of Evaluation Date of Evaluation: 10/30/16 Time of Evaluation: 14:56 Objective - Vital Signs/Intake and Output Vital Signs (last 24 hours): Temp Pulse Resp BP Pulse Ox 98.6 F 77 20 130/64 95 10/30/16 07:00 10/30/16 07:00 10/30/16 07:00 10/30/16 07:00 10/30/16 07:00 Intake and Output: 10/30/16 10/30/16 06:59 18:59 Output Total 200 Balance -200 - Medications Medications: Current Medications Acetaminophen (Tylenol 325mg Tab) 650 mg PO Q4 PRN PRN Reason: Pain, Mild (1-3) Acetylcysteine (Acetylcysteine 20%) 4 ml INH RQ6 [facility] Last Admin: 10/30/16 13:39 Dose: 4 ml Albuterol/Ipratropium (Duoneb 3 Mg/0.5 Mg (3 Ml) Ud) 3 ml INH RQ6 [facility] Last Admin: 10/30/16 13:40 Dose: 3 ml Bacitracin (Bacitracin) 0 ea TOP QSHIFT [facility] Last Admin: 10/30/16 14:03 Dose: 1 ea Enoxaparin Sodium (Lovenox) 40 mg SC DAILY [facility] Last Admin: 10/30/16 10:06 Dose: 40 mg Famotidine (Pepcid) 20 mg PO DAILY [facility] Last Admin: 10/30/16 10:07 Dose: 20 mg Ferrous Sulfate (Feosol) 325 mg PO DAILY [facility] Last Admin: 10/30/16 10:07 Dose: 325 mg Folic Acid (Folic Acid) 1 mg PO DAILY [facility] Last Admin: 10/30/16 10:07 Dose: 1 mg Guaifenesin (Mucinex La) 600 mg PO Q12 [facility] Last Admin: 10/30/16 10:07 Dose: 600 mg Azithromycin 500 mg/ Sodium (Chloride) 250 mls @ 250 mls/hr IVPB Q24H [facility] Last Admin: 10/29/16 17:19 Dose: 250 mls/hr Ceftriaxone Sodium 1 gm/ (Sodium Chloride) 100 mls @ 100 mls/hr IVPB Q24H [facility] Last Admin: 10/29/16 17:19 Dose: 100 mls/hr Levothyroxine Sodium (Synthroid) 100 mcg PO DAILY@0630 [facility] Last Admin: 10/30/16 06:19 Dose: 100 mcg Megestrol Acetate (Megace) 400 mg PO DAILY [facility] Last Admin: 10/30/16 10:06 Dose: 400 mg Sodium Bicarbonate (Sodium Bicarbonate Tab) 650 mg PO TID [facility] Last Admin: 10/30/16 14:02 Dose: 650 mg Tamsulosin HCl (Flomax) 0.4 mg PO DAILY [facility] Last Admin: 10/30/16 10:07 Dose: 0.4 mg - Labs Labs: 10/30/16 07:53 10/30/16 07:53 PT 12.5 SECONDS (9.7-12.2) H 10/26/16 16:51 INR 1.1 10/26/16 16:51 APTT 27 SECONDS (21-34) 10/26/16 16:51
--- NOTE | 2016-10-30 15:30 | CP.PCM.PN ---
Subjective - Date & Time of Evaluation Date of Evaluation: 10/30/16 Time of Evaluation: 15:30 Objective - Vital Signs/Intake and Output Vital Signs (last 24 hours): Temp Pulse Resp BP Pulse Ox 98.6 F 77 20 130/64 95 10/30/16 07:00 10/30/16 07:00 10/30/16 07:00 10/30/16 07:00 10/30/16 07:00 Intake and Output: 10/30/16 10/30/16 06:59 18:59 Output Total 200 Balance -200 - Medications Medications: Current Medications Acetaminophen (Tylenol 325mg Tab) 650 mg PO Q4 PRN PRN Reason: Pain, Mild (1-3) Acetylcysteine (Acetylcysteine 20%) 4 ml INH RQ6 [facility] Last Admin: 10/30/16 13:39 Dose: 4 ml Albuterol/Ipratropium (Duoneb 3 Mg/0.5 Mg (3 Ml) Ud) 3 ml INH RQ6 [facility] Last Admin: 10/30/16 13:40 Dose: 3 ml Bacitracin (Bacitracin) 0 ea TOP QSHIFT [facility] Last Admin: 10/30/16 14:03 Dose: 1 ea Enoxaparin Sodium (Lovenox) 40 mg SC DAILY [facility] Last Admin: 10/30/16 10:06 Dose: 40 mg Famotidine (Pepcid) 20 mg PO DAILY [facility] Last Admin: 10/30/16 10:07 Dose: 20 mg Ferrous Sulfate (Feosol) 325 mg PO DAILY [facility] Last Admin: 10/30/16 10:07 Dose: 325 mg Folic Acid (Folic Acid) 1 mg PO DAILY [facility] Last Admin: 10/30/16 10:07 Dose: 1 mg Guaifenesin (Mucinex La) 600 mg PO Q12 [facility] Last Admin: 10/30/16 10:07 Dose: 600 mg Azithromycin 500 mg/ Sodium (Chloride) 250 mls @ 250 mls/hr IVPB Q24H [facility] Last Admin: 10/29/16 17:19 Dose: 250 mls/hr Ceftriaxone Sodium 1 gm/ (Sodium Chloride) 100 mls @ 100 mls/hr IVPB Q24H [facility] Last Admin: 10/29/16 17:19 Dose: 100 mls/hr Levothyroxine Sodium (Synthroid) 100 mcg PO DAILY@0630 [facility] Last Admin: 10/30/16 06:19 Dose: 100 mcg Megestrol Acetate (Megace) 400 mg PO DAILY [facility] Last Admin: 10/30/16 10:06 Dose: 400 mg Sodium Bicarbonate (Sodium Bicarbonate Tab) 650 mg PO TID [facility] Last Admin: 10/30/16 14:02 Dose: 650 mg Tamsulosin HCl (Flomax) 0.4 mg PO DAILY [facility] Last Admin: 10/30/16 10:07 Dose: 0.4 mg - Labs Labs: 10/30/16 07:53 10/30/16 07:53 PT 12.5 SECONDS (9.7-12.2) H 10/26/16 16:51 INR 1.1 10/26/16 16:51 APTT 27 SECONDS (21-34) 10/26/16 16:51
[2016-10-30 15:36] VITALS: BP 118/66; PULSE 84; TEMP 98.4
--- NOTE | 2016-10-30 15:41 | CP.PCM.PN ---
Subjective - Date & Time of Evaluation Date of Evaluation: 10/30/16 Time of Evaluation: 11:20 - Subjective Subjective: clinically same Objective - Vital Signs/Intake and Output Vital Signs (last 24 hours): Temp Pulse Resp BP Pulse Ox 98.4 F 84 20 118/66 95 10/30/16 15:31 10/30/16 15:31 10/30/16 15:31 10/30/16 15:31 10/30/16 15:31 Intake and Output: 10/30/16 10/30/16 06:59 18:59 Output Total 200 300 Balance -200 -300 - Medications Medications: Current Medications Acetaminophen (Tylenol 325mg Tab) 650 mg PO Q4 PRN PRN Reason: Pain, Mild (1-3) Acetylcysteine (Acetylcysteine 20%) 4 ml INH RQ6 [facility] Last Admin: 10/30/16 13:39 Dose: 4 ml Albuterol/Ipratropium (Duoneb 3 Mg/0.5 Mg (3 Ml) Ud) 3 ml INH RQ6 [facility] Last Admin: 10/30/16 13:40 Dose: 3 ml Bacitracin (Bacitracin) 0 ea TOP QSHIFT [facility] Last Admin: 10/30/16 14:03 Dose: 1 ea Enoxaparin Sodium (Lovenox) 40 mg SC DAILY [facility] Last Admin: 10/30/16 10:06 Dose: 40 mg Famotidine (Pepcid) 20 mg PO DAILY [facility] Last Admin: 10/30/16 10:07 Dose: 20 mg Ferrous Sulfate (Feosol) 325 mg PO DAILY [facility] Last Admin: 10/30/16 10:07 Dose: 325 mg Folic Acid (Folic Acid) 1 mg PO DAILY [facility] Last Admin: 10/30/16 10:07 Dose: 1 mg Guaifenesin (Mucinex La) 600 mg PO Q12 [facility] Last Admin: 10/30/16 10:07 Dose: 600 mg Azithromycin 500 mg/ Sodium (Chloride) 250 mls @ 250 mls/hr IVPB Q24H [facility] Last Admin: 10/29/16 17:19 Dose: 250 mls/hr Ceftriaxone Sodium 1 gm/ (Sodium Chloride) 100 mls @ 100 mls/hr IVPB Q24H [facility] Last Admin: 10/29/16 17:19 Dose: 100 mls/hr Levothyroxine Sodium (Synthroid) 100 mcg PO DAILY@0630 [facility] Last Admin: 10/30/16 06:19 Dose: 100 mcg Megestrol Acetate (Megace) 400 mg PO DAILY [facility] Last Admin: 10/30/16 10:06 Dose: 400 mg Sodium Bicarbonate (Sodium Bicarbonate Tab) 650 mg PO TID [facility] Last Admin: 10/30/16 14:02 Dose: 650 mg Tamsulosin HCl (Flomax) 0.4 mg PO DAILY [facility] Last Admin: 10/30/16 10:07 Dose: 0.4 mg - Labs Labs: 10/30/16 07:53 10/30/16 07:53 PT 12.5 SECONDS (9.7-12.2) H 10/26/16 16:51 INR 1.1 10/26/16 16:51 APTT 27 SECONDS (21-34) 10/26/16 16:51 - Constitutional Appears: Well - Head Exam Head Exam: ATRAUMATIC, NORMAL INSPECTION, NORMOCEPHALIC - Eye Exam Eye Exam: EOMI, Normal appearance, PERRL Pupil Exam: NORMAL ACCOMODATION, PERRL - ENT Exam ENT Exam: Mucous Membranes Moist, Normal Exam - Neck Exam Neck Exam: Full ROM, Normal Inspection. absent: Lymphadenopathy - Respiratory Exam Respiratory Exam: Decreased Breath Sounds - Cardiovascular Exam Cardiovascular Exam: REGULAR RHYTHM, +S1, +S2 - GI/Abdominal Exam GI & Abdominal Exam: Soft, Diminished Bowel Sounds - Rectal Exam Rectal Exam: Deferred
== END 2016-10-30 17:50 | DRG 291 ==
LOC: C.ER 16:14 → C.9E 18:24 → C.6T 19:11
PROVIDERS: ADMIT Internal Medicine Nephrology; ATTEND Internal Medicine Nephrology
DX: I13.0 Hypertensive heart and chronic kidney disease with heart failure and stage 1 through stage 4 chronic kidney disease, or unspecified chronic kidney disease (principal); J18.9 Pneumonia, unspecified organism; E86.0 Dehydration; J44.0 Chronic obstructive pulmonary disease with (acute) lower respiratory infection; I48.91 Unspecified atrial fibrillation; D64.9 Anemia, unspecified; I50.33 Acute on chronic diastolic (congestive) heart failure; N18.9 Chronic kidney disease, unspecified; Z87.891 Personal history of nicotine dependence; M81.0 Age-related osteoporosis without current pathological fracture; Z96.642 Presence of left artificial hip joint; E78.5 Hyperlipidemia, unspecified

== ENCOUNTER 2016-11-07 23:01 | Inpatient (IN) | payer MEDICARE ==
[2016-11-07 23:02] VITALS: PULSE 80; BMI 19.5
--- NOTE | 2016-11-08 00:11 | C.PDOC ---
History Of Present Illness Patient is an 86 year old male who was sent to the ER by [facility] for abnormal labs. Patient has a Hx of renal insufficiency, CHF, COPD, and colon CA with possible metathesis to the lungs. shelter has been monitoring his BUN and creatinine; initially they notice his BUN was 51, creatinine 2.3, and potassium 2.3. Patient was given kayexalate PO and reevaluated; on reevaluation BUN was 47, creatinine 2.2, and potassium 6.6 which prompted ER visit. Patient has no physical complaints other than his chronic back pain and chronic SOB; which he report is unchanged from his baseline. He did receive another dose of kayexalate today. Time Seen by Provider: 11/07/16 23:43 Chief Complaint (Nursing): Abnormal Labs History Per: Patient, Other History/Exam Limitations: no limitations Onset/Duration Of Symptoms: Hrs Current Symptoms Are (Timing): Still Present Recent travel outside of the [place]: No Additional History Per: Assisted Past Medical History Reviewed: Historical Data, Nursing Documentation, Vital Signs Vital Signs: Last Vital Signs Temp 98.5 F 11/08/16 00:14 Pulse 111 H 11/08/16 00:14 Resp 22 11/08/16 00:14 BP 118/68 11/08/16 00:14 Pulse Ox 92 L 11/08/16 00:14 - Medical History PMH: Anemia, Arthritis, Atrial Fibrillation, Bronchitis, CHF, COPD, Emphysema, Gastritis, HTN, Hypothyroidism, Osteoporosis, Pneumonia Surgical History: - [facility] Procedures BONE MARROW BIOPSY (10/20/03) CLOSED ENDOSCOPIC BIOPSY OF LARGE INTESTINE (05/02/14) COLONOSCOPY (10/20/03) ESOPHAGOGASTRODUODENOSCOPY [EGD] W/CLOSED BIOPSY (10/20/03) EXCISION OF ASCENDING COLON, ENDO, DIAGN (06/09/16) EXCISION OF LEFT UPPER LUNG LOBE, PERC APPROACH, DIAGN (06/09/16) EXCISION OF SIGMOID COLON, ENDO, DIAGN (06/09/16) EXCISION OF STOMACH, ENDO, DIAGN (06/09/16) INJECT STEROID (10/20/03) INJECTION INTO JOINT (10/20/03) INSERTION OF INFUSION DEV INTO SUP VENA CAVA, PERC APPROACH (09/12/16) INSPECTION OF UPPER INTESTINAL TRACT, ENDO (05/27/16) INTRODUCTION OF NUTRITIONAL INTO PERIPH ART, PERC APPROACH (06/09/16) PACKED CELL TRANSFUSION (10/20/03) RESECTION OF APPENDIX, OPEN APPROACH (06/09/16) RESECTION OF SIGMOID COLON, OPEN APPROACH (06/09/16) TRANSFUSE NONAUT RED BLOOD CELLS IN PERIPH VEIN, PERC (06/09/16) VACCINATION NEC (05/02/14) Family History: States: Unknown Family Hx, Diabetes - Social History Hx Tobacco Use: No (quit 15 yrs ago, was a heavy smoker) Hx Alcohol Use: No Hx Substance Use: No - Immunization History Hx Tetanus Toxoid Vaccination: No Hx Influenza Vaccination: No Hx Pneumococcal Vaccination: No Review Of Systems Constitutional: Negative for: Fever, Chills Cardiovascular: Negative for: Chest Pain Respiratory: Positive for: Shortness of Breath (Chronic) Gastrointestinal: Negative for: Nausea, Vomiting, Abdominal Pain Musculoskeletal: Positive for: Back Pain (Chronic) Physical Exam - Physical Exam Appears: Non-toxic, Other (tachypneic) Skin: Normal Color, Warm, Dry Head: Atraumatic, Normacephalic Oral Mucosa: Moist Chest: Symmetrical, No Tenderness Cardiovascular: Rhythm Regular (Tachycardic), No Murmur Respiratory: Other (Audible crackles at bedside) Gastrointestinal/Abdominal: Soft, No Tenderness Extremity: Pedal Edema (Mild, no pitting) Neurological/Psych: Oriented x3, Normal Speech, Normal Cognition ED Course And Treatment ECG: Interpreted By Me ECG Rhythm: Sinus Tachycardia (with left axis deviation) - Radiology CXR: Interpreted by Me CXR Interpretation: Yes: No Acute Disease (imporved from prior done 10/26 which showed left lingular pneumonia) Progress Note: EKG, blood work, CXR, and urinalysis ordered. Lasix administered. Disposition - Disposition Disposition Time: 00:29 Condition: STABLE - Clinical Impression Clinical Impression: Renal insufficiency, Hyperkalemia - Scribe Statement The provider has reviewed the documentation as recorded by the Scribelan Montano All medical record entries made by the Scribe were at my direction and personally dictated by me. I have reviewed the chart and agree that the record accurately reflects my personal performance of the history, physical exam, medical decision making, and the department course for this patient. I have also personally directed, reviewed, and agree with the discharge instructions and disposition. Physician Patient Turnover Patient Signed Over To: Gerald Friedman Handoff Comments: Pending labs and disposition.
[2016-11-08 00:20] LABS: BASO # 0.1 K/uL (0.0-0.2); LYMPH # 1.2 K/uL (1.0-4.3)
[2016-11-08 00:36] LABS: BASO % 0.9 % (0.0-2.0); EOS # 0.6 K/uL (0.0-0.7); HEMOGLOBIN 8.5 g/dL (12.0-18.0); LYMPH % 10.8 % (20.0-40.0); MEAN CELL VOLUME 85.9 fL (80.0-94.0); MEAN CORPUSCULAR HEMOGLOBIN 26.6 pg (27.0-31.0); MEAN PLATELET VOLUME 7.8 fL (7.2-11.7); MONO # 0.8 K/uL (0.0-0.8); NEUT # 8.5 K/uL (1.8-7.0); NEUT % 76.3 % (50.0-75.0); NRBC % 0.1 % (0.0-2.0); RBC 3.19 Mil/uL (4.40-5.90); RED CELL DISTRIBUTION WIDTH 16.5 % (11.5-14.5); WHITE BLOOD COUNT 11.2 K/uL (4.8-10.8)
[2016-11-08 00:47] LABS: ALBUMIN 3.5 g/dL (3.5-5.0)
[2016-11-08 00:51] LABS: CALCIUM 8.6 mg/dl (8.6-10.4)
[2016-11-08 00:52] LABS: MAGNESIUM 2.3 mg/dL (1.6-2.3)
[2016-11-08] MEDS ORDERED: Sod Polystyrene Sulf 15 gm/60 ml Oral Susp PO ONE ×2 (00:59→10:00)
[2016-11-08] MEDS ORDERED: Albuterol 0.083% Inhal Sol (2.5 mg/3 mL) UD IH STA (00:59)
[2016-11-08 01:03] LABS: TROPONIN I 0.018 ng/mL (0.00-0.120)
[2016-11-08] MEDS ORDERED: Albuterol 0.083% Inhal Sol (2.5 mg/3 mL) UD ONE (01:27)
[2016-11-08] MEDS ORDERED: Sod Polystyrene Sulf 15 gm/60 ml Oral Susp ONE (01:52)
[2016-11-08 01:56] LABS: URINE BILIRUBIN NEGATIVE (NEGATIVE); URINE BLOOD NEGATIVE (NEGATIVE); URINE CLARITY Clear (Clear); URINE COLOR Straw (YELLOW); URINE GLUCOSE (UA) NORMAL (Normal); URINE LEUKOCYTE ESTERASE TRACE Leu/uL (Negative); URINE NITRATE NEGATIVE (NEGATIVE); URINE PROTEIN NEGATIVE (NEGATIVE); URINE UROBILINOGEN NORMAL mg/dL (0.2-1.0)
[2016-11-08] MEDS ORDERED: Albuterol-Ipratrop 3 mg / 0.5 (3 ml) UD ONE (04:49)
[2016-11-08] MEDS: Albuterol-Ipratrop 3 mg / 0.5 (3 ml) UD INH SCH ×5 (04:49→20:05)
[2016-11-08 05:00] LABS: BASO # 0.1 K/uL (0.0-0.2); EOS # 0.4 K/uL (0.0-0.7); EOS % 3.5 % (0.0-4.0); HEMOGLOBIN 7.9 g/dL (12.0-18.0); MEAN CELL VOLUME 84.8 fL (80.0-94.0); MEAN CORPUSCULAR HEMOGLOBIN 26.8 pg (27.0-31.0); MEAN CORPUSCULAR HGB CONC 31.6 g/dL (33.0-37.0); MEAN PLATELET VOLUME 6.8 fL (7.2-11.7); MONO # 0.8 K/uL (0.0-0.8); MONO % 7.4 % (0.0-10.0); NEUT # 8.3 K/uL (1.8-7.0); NEUT % 79.1 % (50.0-75.0); PLATELET COUNT 227 K/uL (130-400); RBC 2.94 Mil/uL (4.40-5.90); RED CELL DISTRIBUTION WIDTH 16.3 % (11.5-14.5); WHITE BLOOD COUNT 10.5 K/uL (4.8-10.8)
[2016-11-08 05:11] LABS: ALBUMIN 3.3 g/dL (3.5-5.0)
[2016-11-08 05:15] LABS: CALCIUM 8.5 mg/dl (8.6-10.4)
[2016-11-08] MEDS: Bacitracin Ointment 30 GM TUBE TOP SCH ×3 (06:06→22:48)
[2016-11-08] MEDS: Acetylcysteine 20% Inhal Soln (4ml) INH SCH ×3 (07:15→20:05)
[2016-11-08 07:44] LABS: BANDS 5 % (0-2); BASOPHIL 1 % (0-2); EOSINOPHIL 6 % (0-4); LYMPHOCYTE 6 % (20-40); METAMYELOCYTE 1 % (0-0); MONOCYTE 9 % (0-10); MYELOCYTE 1 % (0-0); NEUTROPHIL 71 % (50-75); PLATELET ESTIMATE NORMAL (NORMAL); TOTAL CELLS COUNTED 100
[2016-11-08 07:45] LABS: ANISOCYTOSIS SLIGHT; HYPOCHROMIC SLIGHT
[2016-11-08] MEDS ORDERED: VIT C PO SCH (10:00)
[2016-11-08] MEDS ORDERED: ZINC PO SCH (10:00)
[2016-11-08] MEDS ORDERED: SODIUM BICARBONATE 650 MG PO SCH (10:00)
[2016-11-08] MEDS ORDERED: Levothyroxine 100 MCG TAB PO SCH (10:00)
[2016-11-08] MEDS ORDERED: PROTEIN PO SCH (10:00)
[2016-11-08] MEDS ORDERED: AMINO ACID PO SCH (10:00)
--- NOTE | 2016-11-08 10:38 | RAD ---
PROCEDURE: CHEST RADIOGRAPH, 1 VIEW HISTORY: Shortness of breath COMPARISON: None available. FINDINGS: LUNGS: Clear. PLEURA: No pneumothorax or pleural fluid seen. CARDIOVASCULAR: Normal. OSSEOUS STRUCTURES: No significant abnormalities. VISUALIZED UPPER ABDOMEN: Normal. OTHER FINDINGS: None. IMPRESSION: No active disease.
--- NOTE | 2016-11-08 10:46 | CP.PCM.HP ---
Past Patient History - Infectious Disease Hx of Infectious Diseases: None - Past Medical History & Family History Past Medical History?: Yes - Past Social History Smoking Status: Former Smoker - CARDIAC Hx Atrial Fibrillation: Yes Hx Congestive Heart Failure: Yes Hx Hypertension: Yes - PULMONARY Hx Bronchitis: Yes Hx Chronic Obstructive Pulmonary Disease (COPD): Yes Hx Emphysema: Yes Hx Pneumonia: Yes - NEUROLOGICAL Hx Neurological Disorder: No - HEENT Hx HEENT Problems: Yes Hx Cataracts: Yes - RENAL Hx Chronic Kidney Disease: No Hx Kidney Stones: No - ENDOCRINE/METABOLIC Hx Hypothyroidism: Yes - HEMATOLOGICAL/ONCOLOGICAL Hx Anemia: Yes - INTEGUMENTARY Hx Dermatological Problems: No - MUSCULOSKELETAL/RHEUMATOLOGICAL Hx Arthritis: Yes Hx Osteoporosis: Yes - GASTROINTESTINAL Hx Gastritis: Yes - GENITOURINARY/GYNECOLOGICAL Hx Sexually Transmitted Disorders: No - PSYCHIATRIC Hx Substance Use: No - SURGICAL HISTORY Hx Surgeries: Yes Hx Joint Replacement: Yes (left hip replacement) Hx Orthopedic Surgery: Yes (hip surgery) Other/Comment: colon resection 06/2016 - ANESTHESIA Hx Anesthesia: Yes Hx Anesthesia Reactions: No Hx Malignant Hyperthermia: No Meds Allergies/Adverse Reactions: Allergies Allergy/AdvReac Type Severity Reaction Status Date / Time No Known Allergies Allergy Verified 05/27/16 01:08 Physical Exam - Constitutional Appears: Well - Head Exam Head Exam: ATRAUMATIC, NORMAL INSPECTION, NORMOCEPHALIC - Eye Exam Eye Exam: EOMI, Normal appearance, PERRL Pupil Exam: NORMAL ACCOMODATION, PERRL - ENT Exam ENT Exam: Mucous Membranes Moist, Normal Exam - Neck Exam Neck exam: Positive for: Normal Inspection - Respiratory Exam Respiratory Exam: Decreased Breath Sounds - Cardiovascular Exam Cardiovascular Exam: REGULAR RHYTHM, +S1, +S2 - GI/Abdominal Exam GI & Abdominal Exam: Diminished Bowel Sounds, Soft - Rectal Exam Rectal Exam: Deferred Results - Vital Signs Recent Vital Signs: Last Vital Signs Temp 98.1 F 11/08/16 08:54 Pulse 108 H 11/08/16 08:54 Resp 18 11/08/16 08:54 BP 144/79 11/08/16 08:54 Pulse Ox 95 11/08/16 08:54 - Labs Result Diagrams: 11/08/16 04:54 11/08/16 04:54 Labs: Laboratory Results - last 24 hr 11/08/16 11/08/16 11/08/16 01:38 04:54 04:54 WBC 10.5 RBC 2.94 L Hgb 7.9 L Hct 25.0 L MCV 84.8 MCH 26.8 L MCHC 31.6 L RDW 16.3 H Plt Count 227 MPV 6.8 L Neut % (Auto) 79.1 H Lymph % (Auto) 9.0 L [place] % (Auto) 7.4 Eos % (Auto) 3.5 Baso % (Auto) 1.0 Neut # 8.3 H Lymph # 1.0 [place] # 0.8 Eos # 0.4 Baso # 0.1 Neutrophils % (Manual) 71 Band Neutrophils % 5 H Lymphocytes % (Manual) 6 L Monocytes % (Manual) 9 Eosinophils % (Manual) 6 H Basophils % (Manual) 1 Metamyelocytes % 1 H Myelocytes % 1 H Platelet Estimate Normal Hypochromasia (manual) Slight Basophilic Stippling Slight Anisocytosis (manual) Slight Sodium 144 Potassium 5.7 H Chloride 106 Carbon Dioxide 25 Anion Gap 19 BUN 56 H Creatinine 2.0 H Est GFR ( Amer) 39 Est GFR (Non-Af Amer) 32 Random Glucose 107 Calcium 8.5 L Total Bilirubin 0.5 AST 14 L ALT 11 L D Alkaline Phosphatase 71 Total Protein 6.7 Albumin 3.3 L Globulin 3.4 Albumin/Globulin Ratio 1.0 Urine Color Straw Urine Clarity Clear Urine pH 5.0 Ur Specific [place] 1.009 Urine Protein Negative Urine Glucose (UA) Normal Urine Ketones Negative Urine Blood Negative Urine Nitrate Negative Urine Bilirubin Negative Urine Urobilinogen Normal Ur Leukocyte Esterase Trace Urine WBC (Auto) 16 H Hyaline Casts 3-5 H
[2016-11-08] MEDS: Megestrol Acetate 40 mg/ml Cup PO SCH (12:15)
[2016-11-08] MEDS: guaiFENesin 600 mg ER Tab PO SCH ×2 (12:15→22:48)
[2016-11-08 12:22] LABS: IRON 80 ug/dL (49-181)
[2016-11-08 12:32] LABS: % IRON SATURATION 38 (20-55); TOTAL IRON BINDING CAPACITY 210 ug/dL (250-450)
--- NOTE | 2016-11-08 22:43 | CARD ---
APPROVED REPORT EKG Measurement Heart [id number] <Conclusion> Sinus tachycardia Left axis deviation Possible Anterior infarct, age undetermined Abnormal ECG
[2016-11-09] MEDS: Albuterol-Ipratrop 3 mg / 0.5 (3 ml) UD INH SCH ×6 (00:59→19:12)
[2016-11-09] MEDS: Acetylcysteine 20% Inhal Soln (4ml) INH SCH ×4 (02:17→19:12)
[2016-11-09] MEDS: Levothyroxine 100 MCG TAB PO SCH (06:25)
[2016-11-09] MEDS: Bacitracin Ointment 30 GM TUBE TOP SCH ×3 (06:25→22:07)
[2016-11-09] MEDS ORDERED: Sod Polystyrene Sulf 15 gm/60 ml Oral Susp PO ONE (09:00)
--- NOTE | 2016-11-09 09:00 | CP.PCM.PN ---
Subjective - Date & Time of Evaluation Date of Evaluation: 11/09/16 Time of Evaluation: 07:45 - Subjective Subjective: Dr. Jayson Doan's Service: Patient seen and examined at bedside this AM. He is lying comfortably in bed. He is alert and oriented to self, place and time. He has no complaints this AM other than feeling cold. Denies chest pain, SOB, fevers, chills, nausea, vomiting. Objective - Vital Signs/Intake and Output Vital Signs (last 24 hours): Temp Pulse Resp BP Pulse Ox 98.6 F 89 20 122/70 98 11/09/16 08:33 11/09/16 08:33 11/09/16 08:33 11/09/16 08:33 11/09/16 08:33 - Medications Medications: Current Medications Acetaminophen (Tylenol 325mg Tab) 650 mg PO Q4 PRN PRN Reason: Pain, Mild (1-3) Acetylcysteine (Acetylcysteine 20%) 4 ml INH RQ6 [facility] Last Admin: 11/09/16 07:38 Dose: Not Given Albuterol/Ipratropium (Duoneb 3 Mg/0.5 Mg (3 Ml) Ud) 3 ml INH RQ4 [facility] Last Admin: 11/09/16 07:38 Dose: Not Given Bacitracin (Bacitracin) 0 gm TOP QSHIFT [facility] Last Admin: 11/09/16 06:25 Dose: 1 applic Famotidine (Pepcid) 20 mg PO DAILY [facility] Last Admin: 11/08/16 12:15 Dose: 20 mg Ferrous Sulfate (Feosol) 325 mg PO DAILY [facility] Last Admin: 11/08/16 12:15 Dose: 325 mg Folic Acid (Folic Acid) 1 mg PO DAILY [facility] Last Admin: 11/08/16 12:15 Dose: 1 mg Furosemide (Lasix) 40 mg IVP DAILY [facility] Last Admin: 11/08/16 12:15 Dose: 40 mg Guaifenesin (Mucinex La) 600 mg PO Q12 [facility] Last Admin: 11/08/16 22:48 Dose: 600 mg Levothyroxine Sodium (Synthroid) 100 mcg PO DAILY@0630 [facility] Last Admin: 11/09/16 06:25 Dose: 100 mcg Megestrol Acetate (Megace) 400 mg PO DAILY [facility] Last Admin: 11/08/16 12:15 Dose: 400 mg Sodium Bicarbonate (Sodium Bicarbonate Tab) 650 mg PO TID [facility] Last Admin: 11/08/16 18:47 Dose: 650 mg Sodium Polystyrene Sulfonate (Kayexalate Oral Susp) 30 gm PO ONCE ONE Stop: 11/09/16 09:01 Tamsulosin HCl (Flomax) 0.4 mg PO DAILY [facility] Last Admin: 11/08/16 12:15 Dose: 0.4 mg - Labs Labs: 11/08/16 04:54 11/08/16 04:54 - Constitutional Appears: No Acute Distress - Head Exam Head Exam: NORMAL INSPECTION, NORMOCEPHALIC - Eye Exam Eye Exam: EOMI, Normal appearance - ENT Exam ENT Exam: Mucous Membranes Moist - Neck Exam Neck Exam: Full ROM, Normal Inspection - Respiratory Exam Respiratory Exam: Rales (bilateral ), NORMAL BREATHING PATTERN - Cardiovascular Exam Cardiovascular Exam: REGULAR RHYTHM, +S1, +S2 - GI/Abdominal Exam GI & Abdominal Exam: Soft. absent: Distended, Tenderness - Neurological Exam Neurological Exam: Alert, Awake, Oriented x3 - Psychiatric Exam Psychiatric exam: Flat Affect, Normal Affect, Normal Mood - Skin Skin Exam: Dry, Pallor Assessment and Plan - Assessment and Plan (Free Text) Assessment: (1) Hyperkalemia * 5.7 on admission and again this AM. * Kayexalate this AM. * Recheck CMP later today. (2) Anemia * H/H downtrending. Hgb 7.9. Down from 8.5 yesterday. * Patient with history of colon cancer (see below), active GI bleed. * Check stool OB. * Dr. Chu saw patient during September admission. * Continue Feosol PO daily * Will transfuse PRN. 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 Perea) following at the time who discovered mass during colonoscopy in May 2016. * EGD found gastric ulcers, hiatal hernia. * Heme/Onc Dr. Perea followed patient during September admission and recommended PRN transfusions. (4) Lung Nodules * IR biopsy of nodules 06/27. pathology results: organizing pneumonia. * Chest CT showed moderate bilateral pleural effusion increased from 2015. Multiple bilateral pulmonary nodules with cavitation in 2 right sided nodules, infectious vs neoplasm vs septic emboli. Several nonspecific ground- glass density (see full report). (5) Afib * Currently rate controlled * Cardizem changed from 60 mg PO Q6H to * Amiodarone 200 mg daily as per cardio * No anticoagulation due to history of GI bleed (8) NOEMI * Resolved, Cr 2.0, currently stable * Avoid nephrotoxins * Renal ultrasound 06/19/16- interstitial disease (9) Diastolic CHF * EF normal as per most recent ECHO. * Continue Lasix 40 mg IVP daily (10) COPD (chronic obstructive pulmonary disease) * Duonebs Q4H [facility] * Monitor (11) Prophylactic measure Start Protonix 40 mg IVP daily SCDs chemical AC c/i due to GI bleed PT/OT Management as per Dr. Doan.
[2016-11-09] MEDS ORDERED: ZINC PO SCH (10:00)
[2016-11-09] MEDS ORDERED: VIT C PO SCH (10:00)
[2016-11-09] MEDS ORDERED: PROTEIN PO SCH (10:00)
[2016-11-09] MEDS ORDERED: AMINO ACID PO SCH (10:00)
[2016-11-09] MEDS: Megestrol Acetate 40 mg/ml Cup PO SCH (10:23)
[2016-11-09 10:29] LABS: BASO # 0.2 K/uL (0.0-0.2); BASO % 1.2 % (0.0-2.0); EOS # 0.6 K/uL (0.0-0.7); EOS % 4.3 % (0.0-4.0); HEMOGLOBIN 8.9 g/dL (12.0-18.0); LYMPH # 1.4 K/uL (1.0-4.3); LYMPH % 10.5 % (20.0-40.0); MEAN CELL VOLUME 84.3 fL (80.0-94.0); MEAN CORPUSCULAR HEMOGLOBIN 26.3 pg (27.0-31.0); MEAN CORPUSCULAR HGB CONC 31.1 g/dL (33.0-37.0); MEAN PLATELET VOLUME 7.5 fL (7.2-11.7); MONO # 0.8 K/uL (0.0-0.8); MONO % 5.8 % (0.0-10.0); NEUT # 10.3 K/uL (1.8-7.0); NEUT % 78.2 % (50.0-75.0); RBC 3.39 Mil/uL (4.40-5.90); RED CELL DISTRIBUTION WIDTH 15.9 % (11.5-14.5); WHITE BLOOD COUNT 13.2 K/uL (4.8-10.8)
[2016-11-09 11:00] LABS: ALBUMIN 3.1 g/dL (3.5-5.0)
[2016-11-09 11:03] LABS: ALB/GLOB RATIO 0.9 (1.0-2.1); CALCIUM 8.3 mg/dl (8.6-10.4)
--- NOTE | 2016-11-09 11:12 | CP.PCM.PN ---
Subjective - Date & Time of Evaluation Date of Evaluation: 11/09/16 Time of Evaluation: 08:40 - Subjective Subjective: clinically same Objective - Vital Signs/Intake and Output Vital Signs (last 24 hours): Temp Pulse Resp BP Pulse Ox 98.6 F 89 20 122/70 98 11/09/16 08:33 11/09/16 08:33 11/09/16 08:33 11/09/16 10:23 11/09/16 08:33 - Medications Medications: Current Medications Acetaminophen (Tylenol 325mg Tab) 650 mg PO Q4 PRN PRN Reason: Pain, Mild (1-3) Acetylcysteine (Acetylcysteine 20%) 4 ml INH RQ6 [facility] Last Admin: 11/09/16 07:38 Dose: Not Given Albuterol/Ipratropium (Duoneb 3 Mg/0.5 Mg (3 Ml) Ud) 3 ml INH RQ4 [facility] Last Admin: 11/09/16 07:38 Dose: Not Given Bacitracin (Bacitracin) 0 gm TOP QSHIFT [facility] Last Admin: 11/09/16 06:25 Dose: 1 applic Ferrous Sulfate (Feosol) 325 mg PO DAILY [facility] Last Admin: 11/09/16 10:23 Dose: 325 mg Folic Acid (Folic Acid) 1 mg PO DAILY [facility] Last Admin: 11/09/16 10:22 Dose: 1 mg Furosemide (Lasix) 40 mg IVP DAILY [facility] Last Admin: 11/09/16 10:23 Dose: 40 mg Guaifenesin (Mucinex La) 600 mg PO Q12 [facility] Last Admin: 11/08/16 22:48 Dose: 600 mg Levothyroxine Sodium (Synthroid) 100 mcg PO DAILY@0630 [facility] Last Admin: 11/09/16 06:25 Dose: 100 mcg Megestrol Acetate (Megace) 400 mg PO DAILY [facility] Last Admin: 11/09/16 10:23 Dose: 400 mg Pantoprazole Sodium (Protonix Inj) 40 mg IVP DAILY [facility] Sodium Bicarbonate (Sodium Bicarbonate Tab) 650 mg PO TID [facility] Last Admin: 11/09/16 10:23 Dose: 650 mg Tamsulosin HCl (Flomax) 0.4 mg PO DAILY [facility] Last Admin: 11/09/16 10:22 Dose: 0.4 mg - Labs Labs: 11/09/16 10:26 11/09/16 10:26 - Constitutional Appears: Well - Head Exam Head Exam: ATRAUMATIC, NORMAL INSPECTION, NORMOCEPHALIC - Eye Exam Eye Exam: EOMI, Normal appearance, PERRL Pupil Exam: NORMAL ACCOMODATION, PERRL - ENT Exam ENT Exam: Mucous Membranes Moist, Normal Exam - Neck Exam Neck Exam: Full ROM, Normal Inspection. absent: Lymphadenopathy - Respiratory Exam Respiratory Exam: Decreased Breath Sounds - Cardiovascular Exam Cardiovascular Exam: REGULAR RHYTHM, +S1, +S2 - GI/Abdominal Exam GI & Abdominal Exam: Soft, Diminished Bowel Sounds - Rectal Exam Rectal Exam: Deferred
[2016-11-09] MEDS: guaiFENesin 600 mg ER Tab PO SCH ×2 (12:10→22:05)
[2016-11-09 17:37] LABS: ALBUMIN 2.9 g/dL (3.5-5.0)
[2016-11-09 17:41] LABS: CALCIUM 7.6 mg/dl (8.6-10.4)
[2016-11-09] MEDS: Ferric Sodium Gluconat Complex 62.5 mg/5 ml Vial IVPB SCH (18:21)
[2016-11-10] MEDS: Albuterol-Ipratrop 3 mg / 0.5 (3 ml) UD INH SCH ×4 (04:05→20:05)
[2016-11-10] MEDS: Acetylcysteine 20% Inhal Soln (4ml) INH SCH ×4 (04:05→20:05)
[2016-11-10] MEDS: Levothyroxine 100 MCG TAB PO SCH (05:46)
[2016-11-10] MEDS: Bacitracin Ointment 30 GM TUBE TOP SCH ×3 (06:00→21:25)
[2016-11-10 06:31] LABS: BASO # 0.1 K/uL (0.0-0.2); BASO % 1.1 % (0.0-2.0); EOS # 0.4 K/uL (0.0-0.7); EOS % 3.4 % (0.0-4.0); HEMOGLOBIN 8.3 g/dL (12.0-18.0); LYMPH # 1.1 K/uL (1.0-4.3); LYMPH % 8.5 % (20.0-40.0); MEAN CELL VOLUME 83.4 fL (80.0-94.0); MEAN CORPUSCULAR HEMOGLOBIN 26.4 pg (27.0-31.0); MEAN CORPUSCULAR HGB CONC 31.7 g/dL (33.0-37.0); MEAN PLATELET VOLUME 7.4 fL (7.2-11.7); MONO # 1.1 K/uL (0.0-0.8); MONO % 8.6 % (0.0-10.0); NEUT # 10.4 K/uL (1.8-7.0); NEUT % 78.4 % (50.0-75.0); PLATELET COUNT 219 K/uL (130-400); RBC 3.13 Mil/uL (4.40-5.90); RED CELL DISTRIBUTION WIDTH 16.4 % (11.5-14.5); WHITE BLOOD COUNT 13.2 K/uL (4.8-10.8)
[2016-11-10 07:27] LABS: ALBUMIN 2.7 g/dL (3.5-5.0)
[2016-11-10 07:30] LABS: ALB/GLOB RATIO 0.9 (1.0-2.1)
[2016-11-10 07:31] LABS: MAGNESIUM 1.9 mg/dL (1.6-2.3)
[2016-11-10 10:08] LABS: ANISOCYTOSIS SLIGHT; BANDS 5 % (0-2); EOSINOPHIL 1 % (0-4); LYMPHOCYTE 8 % (20-40); MONOCYTE 2 % (0-10); NEUTROPHIL 84 % (50-75); PLATELET ESTIMATE NORMAL (NORMAL); TOTAL CELLS COUNTED 100
[2016-11-10 10:09] LABS: HYPOCHROMIC SLIGHT
[2016-11-10] MEDS: Megestrol Acetate 40 mg/ml Cup PO SCH (13:52)
[2016-11-10] MEDS: Ferric Sodium Gluconat Complex 62.5 mg/5 ml Vial IVPB SCH (13:52)
[2016-11-10] MEDS: guaiFENesin 600 mg ER Tab PO SCH ×2 (13:53→21:23)
[2016-11-10] MEDS ORDERED: Potassium Chloride 20 mEq ER Tab PO STA (21:09)
[2016-11-11] MEDS: Albuterol-Ipratrop 3 mg / 0.5 (3 ml) UD INH SCH ×7 (00:06→23:48)
[2016-11-11] MEDS: Acetylcysteine 20% Inhal Soln (4ml) INH SCH ×4 (03:19→20:14)
[2016-11-11] MEDS: Levothyroxine 100 MCG TAB PO SCH (05:54)
[2016-11-11] MEDS: Bacitracin Ointment 30 GM TUBE TOP SCH ×3 (05:55→21:29)
--- NOTE | 2016-11-11 07:00 | CP.PCM.PN ---
Subjective - Date & Time of Evaluation Date of Evaluation: 11/11/16 Time of Evaluation: 08:20 - Subjective Subjective: clinically same Objective - Vital Signs/Intake and Output Vital Signs (last 24 hours): Temp Pulse Resp BP Pulse Ox 97.6 F 89 20 103/67 94 L 11/11/16 00:00 11/11/16 00:00 11/11/16 00:00 11/11/16 00:00 11/11/16 00:00 Intake and Output: 11/10/16 11/11/16 18:59 06:59 Intake Total 320 Balance 320 - Medications Medications: Current Medications Acetaminophen (Tylenol 325mg Tab) 650 mg PO Q4 PRN PRN Reason: Pain, Mild (1-3) Acetylcysteine (Acetylcysteine 20%) 4 ml INH RQ6 [facility] Last Admin: 11/11/16 03:19 Dose: Not Given Albuterol/Ipratropium (Duoneb 3 Mg/0.5 Mg (3 Ml) Ud) 3 ml INH RQ4 [facility] Last Admin: 11/11/16 03:20 Dose: Not Given Bacitracin (Bacitracin) 0 gm TOP QSHIFT [facility] Last Admin: 11/11/16 05:55 Dose: 1 applic Ferric Sodium Gluconate Complex (Ferrlecit) 125 mg IVPB DAILY [facility] Stop: 11/14/16 16:46 Last Admin: 11/10/16 13:52 Dose: 125 mg Folic Acid (Folic Acid) 1 mg PO DAILY [facility] Last Admin: 11/10/16 13:52 Dose: 1 mg Furosemide (Lasix) 40 mg IVP DAILY [facility] Last Admin: 11/10/16 13:53 Dose: Not Given Guaifenesin (Mucinex La) 600 mg PO Q12 [facility] Last Admin: 11/10/16 21:23 Dose: 600 mg Levothyroxine Sodium (Synthroid) 100 mcg PO DAILY@0630 [facility] Last Admin: 11/11/16 05:54 Dose: 100 mcg Megestrol Acetate (Megace) 400 mg PO DAILY [facility] Last Admin: 11/10/16 13:52 Dose: 400 mg Pantoprazole Sodium (Protonix Inj) 40 mg IVP DAILY [facility] Last Admin: 11/10/16 13:53 Dose: 40 mg Sodium Bicarbonate (Sodium Bicarbonate Tab) 650 mg PO TID [facility] Last Admin: 11/10/16 13:53 Dose: 650 mg Tamsulosin HCl (Flomax) 0.4 mg PO DAILY [facility] Last Admin: 11/10/16 13:52 Dose: 0.4 mg - Constitutional Appears: Well - Head Exam Head Exam: ATRAUMATIC, NORMAL INSPECTION, NORMOCEPHALIC - Eye Exam Eye Exam: EOMI, Normal appearance, PERRL - ENT Exam ENT Exam: Mucous Membranes Moist, Normal Exam - Neck Exam Neck Exam: Full ROM, Normal Inspection. absent: Lymphadenopathy - Respiratory Exam Respiratory Exam: Decreased Breath Sounds - Cardiovascular Exam Cardiovascular Exam: REGULAR RHYTHM, +S1, +S2 - GI/Abdominal Exam GI & Abdominal Exam: Soft, Diminished Bowel Sounds - Rectal Exam Rectal Exam: Deferred
[2016-11-11 07:29] LABS: BASO # 0.1 K/uL (0.0-0.2); BASO % 0.9 % (0.0-2.0); EOS # 0.2 K/uL (0.0-0.7); EOS % 2.2 % (0.0-4.0); HEMOGLOBIN 8.2 g/dL (12.0-18.0); LYMPH # 0.8 K/uL (1.0-4.3); LYMPH % 8.9 % (20.0-40.0); MEAN CELL VOLUME 84.1 fL (80.0-94.0); MEAN CORPUSCULAR HEMOGLOBIN 26.6 pg (27.0-31.0); MEAN CORPUSCULAR HGB CONC 31.7 g/dL (33.0-37.0); MEAN PLATELET VOLUME 7.6 fL (7.2-11.7); MONO # 0.8 K/uL (0.0-0.8); MONO % 8.3 % (0.0-10.0); NEUT # 7.5 K/uL (1.8-7.0); NEUT % 79.7 % (50.0-75.0); PLATELET COUNT 185 K/uL (130-400); RBC 3.08 Mil/uL (4.40-5.90); RED CELL DISTRIBUTION WIDTH 15.5 % (11.5-14.5); WHITE BLOOD COUNT 9.4 K/uL (4.8-10.8)
[2016-11-11 07:40] LABS: ALBUMIN 2.7 g/dL (3.5-5.0)
[2016-11-11 07:43] LABS: ALB/GLOB RATIO 0.9 (1.0-2.1); CALCIUM 8.2 mg/dl (8.6-10.4)
[2016-11-11 09:05] LABS: ANISOCYTOSIS SLIGHT; BANDS 2 % (0-2); EOSINOPHIL 2 % (0-4); HYPOCHROMIC SLIGHT; LYMPHOCYTE 7 % (20-40); MONOCYTE 3 % (0-10); NEUTROPHIL 86 % (50-75); PLATELET ESTIMATE NORMAL (NORMAL); TOTAL CELLS COUNTED 100
[2016-11-11] MEDS: Ferric Sodium Gluconat Complex 62.5 mg/5 ml Vial IVPB SCH (09:37)
[2016-11-11] MEDS: Megestrol Acetate 40 mg/ml Cup PO SCH (09:37)
[2016-11-11] MEDS: guaiFENesin 600 mg ER Tab PO SCH ×2 (09:38→21:27)
[2016-11-11] MEDS: Pantoprazole 40 mg EC Tab PO SCH (09:50)
--- NOTE | 2016-11-11 13:36 | CP.PCM.CON ---
Past Patient History - Infectious Disease Hx of Infectious Diseases: None - Past Medical History & Family History Past Medical History?: Yes - Past Social History Smoking Status: Former Smoker - CARDIAC Hx Congestive Heart Failure: Yes Hx Hypertension: Yes - PULMONARY Hx Chronic Obstructive Pulmonary Disease (COPD): Yes - NEUROLOGICAL Hx Neurological Disorder: No - HEENT Hx HEENT Problems: Yes Hx Cataracts: Yes - RENAL Hx Chronic Kidney Disease: No Hx Kidney Stones: No - ENDOCRINE/METABOLIC Hx Hypothyroidism: Yes - HEMATOLOGICAL/ONCOLOGICAL Hx Anemia: Yes - INTEGUMENTARY Hx Dermatological Problems: No - MUSCULOSKELETAL/RHEUMATOLOGICAL Hx Arthritis: Yes (L HIP SURG) - GASTROINTESTINAL Hx Gastritis: Yes - GENITOURINARY/GYNECOLOGICAL Hx Sexually Transmitted Disorders: No - PSYCHIATRIC Hx Substance Use: No - SURGICAL HISTORY Hx Surgeries: Yes Hx Joint Replacement: Yes (left hip replacement) Hx Orthopedic Surgery: Yes (hip surgery) Other/Comment: colon resection 06/2016 - ANESTHESIA Hx Anesthesia: Yes Hx Anesthesia Reactions: No Hx Malignant Hyperthermia: No Meds Allergies/Adverse Reactions: Allergies Allergy/AdvReac Type Severity Reaction Status Date / Time No Known Allergies Allergy Verified 05/27/16 01:08 - Medications Medications: Current Medications Acetaminophen (Tylenol 325mg Tab) 650 mg PO Q4 PRN PRN Reason: Pain, Mild (1-3) Acetylcysteine (Acetylcysteine 20%) 4 ml INH RQ6 [facility] Last Admin: 11/11/16 07:10 Dose: 4 ml Albuterol/Ipratropium (Duoneb 3 Mg/0.5 Mg (3 Ml) Ud) 3 ml INH RQ4 [facility] Last Admin: 11/11/16 11:30 Dose: 3 ml Bacitracin (Bacitracin) 0 gm TOP QSHIFT [facility] Last Admin: 11/11/16 13:24 Dose: 1 applic Ferric Sodium Gluconate Complex (Ferrlecit) 125 mg IVPB DAILY [facility] Stop: 11/14/16 16:46 Last Admin: 11/11/16 09:37 Dose: 125 mg Folic Acid (Folic Acid) 1 mg PO DAILY [facility] Last Admin: 11/11/16 09:38 Dose: 1 mg Furosemide (Lasix) 40 mg IVP DAILY [facility] Last Admin: 11/11/16 09:34 Dose: Not Given Guaifenesin (Mucinex La) 600 mg PO Q12 [facility] Last Admin: 11/11/16 09:38 Dose: 600 mg Levothyroxine Sodium (Synthroid) 100 mcg PO DAILY@0630 [facility] Last Admin: 11/11/16 05:54 Dose: 100 mcg Megestrol Acetate (Megace) 400 mg PO DAILY [facility] Last Admin: 11/11/16 09:37 Dose: 400 mg Pantoprazole Sodium (Protonix Ec Tab) 40 mg PO DAILY [facility] Last Admin: 11/11/16 09:50 Dose: 40 mg Sodium Bicarbonate (Sodium Bicarbonate Tab) 650 mg PO TID [facility] Last Admin: 11/11/16 13:24 Dose: 650 mg Tamsulosin HCl (Flomax) 0.4 mg PO DAILY [facility] Last Admin: 11/11/16 09:38 Dose: 0.4 mg Results - Vital Signs Recent Vital Signs: Last Vital Signs Temp 98.4 F 11/11/16 08:49 Pulse 107 H 11/11/16 08:49 Resp 20 11/11/16 08:49 BP 128/62 11/11/16 08:49 Pulse Ox 94 L 11/11/16 08:49 - Labs Result Diagrams: 11/11/16 07:17 11/11/16 07:17 Labs: Laboratory Results - last 24 hr 11/10/16 11/10/16 11/11/16 16:28 21:11 07:17 WBC 9.4 RBC 3.08 L Hgb 8.2 L Hct 25.9 L MCV 84.1 MCH 26.6 L MCHC 31.7 L RDW 15.5 H Plt Count 185 MPV 7.6 Neut % (Auto) 79.7 H Lymph % (Auto) 8.9 L [place] % (Auto) 8.3 Eos % (Auto) 2.2 Baso % (Auto) 0.9 Neut # 7.5 H Lymph # 0.8 L [place] # 0.8 Eos # 0.2 Baso # 0.1 Neutrophils % (Manual) 86 H Band Neutrophils % 2 Lymphocytes % (Manual) 7 L Monocytes % (Manual) 3 Eosinophils % (Manual) 2 Platelet Estimate Normal Hypochromasia (manual) Slight Anisocytosis (manual) Slight Sodium Potassium Chloride Carbon Dioxide Anion Gap BUN Creatinine Est GFR ( Amer) Est GFR (Non-Af Amer) POC Glucose (mg/dL) 136 H 164 H Random Glucose Calcium Magnesium Total Bilirubin AST ALT Alkaline Phosphatase Total Protein Albumin Globulin Albumin/Globulin Ratio 11/11/16 11/11/16 11/11/16 07:17 07:20 11:26 WBC RBC Hgb Hct MCV MCH MCHC RDW Plt Count MPV Neut % (Auto) Lymph % (Auto) [place] % (Auto) Eos % (Auto) Baso % (Auto) Neut # Lymph # [place] # Eos # Baso # Neutrophils % (Manual) Band Neutrophils % Lymphocytes % (Manual) Monocytes % (Manual) Eosinophils % (Manual) Platelet Estimate Hypochromasia (manual) Anisocytosis (manual) Sodium 142 Potassium 4.0 Chloride 107 Carbon Dioxide 25 Anion Gap 14 BUN 55 H Creatinine 1.6 H Est GFR ( Amer) 50 Est GFR (Non-Af Amer) 41 POC Glucose (mg/dL) 145 H 106 Random Glucose 89 Calcium 8.2 L Magnesium 2.0 Total Bilirubin 0.5 AST 10 L D ALT 16 L Alkaline Phosphatase 64 Total Protein 5.8 L Albumin 2.7 L Globulin 3.1 Albumin/Globulin Ratio 0.9 L
[2016-11-12] MEDS: Albuterol-Ipratrop 3 mg / 0.5 (3 ml) UD INH SCH ×5 (03:02→19:50)
[2016-11-12] MEDS: Acetylcysteine 20% Inhal Soln (4ml) INH SCH ×4 (03:02→19:50)
[2016-11-12] MEDS: Levothyroxine 100 MCG TAB PO SCH (06:10)
[2016-11-12] MEDS: Bacitracin Ointment 30 GM TUBE TOP SCH ×3 (06:11→21:45)
[2016-11-12 06:29] LABS: ALBUMIN 2.8 g/dL (3.5-5.0)
[2016-11-12 06:32] LABS: CALCIUM 8.1 mg/dl (8.6-10.4)
[2016-11-12 06:33] LABS: BASO # 0.1 K/uL (0.0-0.2); BASO % 0.8 % (0.0-2.0); EOS # 0.1 K/uL (0.0-0.7); EOS % 1.4 % (0.0-4.0); HEMOGLOBIN 7.5 g/dL (12.0-18.0); LYMPH # 0.6 K/uL (1.0-4.3); LYMPH % 7.7 % (20.0-40.0); MAGNESIUM 1.8 mg/dL (1.6-2.3); MEAN CELL VOLUME 83.7 fL (80.0-94.0); MEAN CORPUSCULAR HEMOGLOBIN 26.7 pg (27.0-31.0); MEAN CORPUSCULAR HGB CONC 31.9 g/dL (33.0-37.0); MEAN PLATELET VOLUME 7.5 fL (7.2-11.7); MONO # 0.6 K/uL (0.0-0.8); MONO % 7.6 % (0.0-10.0); NEUT # 6.8 K/uL (1.8-7.0); NEUT % 82.5 % (50.0-75.0); PLATELET COUNT 164 K/uL (130-400); RBC 2.82 Mil/uL (4.40-5.90); RED CELL DISTRIBUTION WIDTH 15.8 % (11.5-14.5); WHITE BLOOD COUNT 8.3 K/uL (4.8-10.8)
[2016-11-12 08:34] LABS: BANDS 5 % (0-2); EOSINOPHIL 2 % (0-4); LYMPHOCYTE 10 % (20-40); MONOCYTE 14 % (0-10); NEUTROPHIL 69 % (50-75); TOTAL CELLS COUNTED 100
[2016-11-12 08:35] LABS: ANISOCYTOSIS SLIGHT; HYPOCHROMIC SLIGHT; PLATELET ESTIMATE NORMAL (NORMAL)
--- NOTE | 2016-11-12 09:26 | CP.PCM.PN ---
Objective - Vital Signs/Intake and Output Vital Signs (last 24 hours): Temp Pulse Resp BP Pulse Ox 98.4 F 100 H 22 117/73 95 11/12/16 08:24 11/12/16 08:24 11/12/16 08:24 11/12/16 08:24 11/12/16 08:24 Intake and Output: 11/12/16 11/12/16 06:59 18:59 Intake Total 730 Balance 730 - Medications Medications: Current Medications Acetaminophen (Tylenol 325mg Tab) 650 mg PO Q4 PRN PRN Reason: Pain, Mild (1-3) Acetylcysteine (Acetylcysteine 20%) 4 ml INH RQ6 [facility] Last Admin: 11/12/16 07:34 Dose: 4 ml Albuterol/Ipratropium (Duoneb 3 Mg/0.5 Mg (3 Ml) Ud) 3 ml INH RQ4 [facility] Last Admin: 11/12/16 07:34 Dose: 3 ml Bacitracin (Bacitracin) 0 gm TOP QSHIFT [facility] Last Admin: 11/12/16 06:11 Dose: 1 applic Ferric Sodium Gluconate Complex (Ferrlecit) 125 mg IVPB DAILY [facility] Stop: 11/14/16 16:46 Last Admin: 11/11/16 09:37 Dose: 125 mg Folic Acid (Folic Acid) 1 mg PO DAILY [facility] Last Admin: 11/11/16 09:38 Dose: 1 mg Furosemide (Lasix) 40 mg IVP DAILY [facility] Last Admin: 11/11/16 09:34 Dose: Not Given Guaifenesin (Mucinex La) 600 mg PO Q12 [facility] Last Admin: 11/11/16 21:27 Dose: 600 mg Levothyroxine Sodium (Synthroid) 100 mcg PO DAILY@0630 [facility] Last Admin: 11/12/16 06:10 Dose: 100 mcg Megestrol Acetate (Megace) 400 mg PO DAILY [facility] Last Admin: 11/11/16 09:37 Dose: 400 mg Pantoprazole Sodium (Protonix Ec Tab) 40 mg PO DAILY [facility] Last Admin: 11/11/16 09:50 Dose: 40 mg Sodium Bicarbonate (Sodium Bicarbonate Tab) 650 mg PO TID [facility] Last Admin: 11/11/16 17:50 Dose: 650 mg Tamsulosin HCl (Flomax) 0.4 mg PO DAILY [facility] Last Admin: 11/11/16 09:38 Dose: 0.4 mg - Labs Labs: 11/12/16 06:00 11/12/16 06:00
[2016-11-12] MEDS: Pantoprazole 40 mg EC Tab PO SCH (09:40)
[2016-11-12] MEDS: guaiFENesin 600 mg ER Tab PO SCH ×2 (09:40→21:44)
[2016-11-12] MEDS: Megestrol Acetate 40 mg/ml Cup PO SCH (09:40)
[2016-11-12] MEDS: Ferric Sodium Gluconat Complex 62.5 mg/5 ml Vial IVPB SCH (09:41)
--- NOTE | 2016-11-12 13:03 | CP.PCM.PN ---
Subjective - Date & Time of Evaluation Date of Evaluation: 11/12/16 Time of Evaluation: 13:03 Objective - Vital Signs/Intake and Output Vital Signs (last 24 hours): Temp Pulse Resp BP Pulse Ox 98.4 F 100 H 22 140/78 95 11/12/16 08:24 11/12/16 08:24 11/12/16 08:24 11/12/16 09:40 11/12/16 08:24 Intake and Output: 11/12/16 11/12/16 06:59 18:59 Intake Total 730 Balance 730 - Medications Medications: Current Medications Acetaminophen (Tylenol 325mg Tab) 650 mg PO Q4 PRN PRN Reason: Pain, Mild (1-3) Acetylcysteine (Acetylcysteine 20%) 4 ml INH RQ6 [facility] Last Admin: 11/12/16 07:34 Dose: 4 ml Albuterol/Ipratropium (Duoneb 3 Mg/0.5 Mg (3 Ml) Ud) 3 ml INH RQ4 [facility] Last Admin: 11/12/16 07:34 Dose: 3 ml Bacitracin (Bacitracin) 0 gm TOP QSHIFT [facility] Last Admin: 11/12/16 06:11 Dose: 1 applic Ferric Sodium Gluconate Complex (Ferrlecit) 125 mg IVPB DAILY [facility] Stop: 11/14/16 16:46 Last Admin: 11/12/16 09:41 Dose: 125 mg Folic Acid (Folic Acid) 1 mg PO DAILY [facility] Last Admin: 11/12/16 09:40 Dose: 1 mg Furosemide (Lasix) 40 mg IVP DAILY [facility] Last Admin: 11/12/16 09:40 Dose: 40 mg Guaifenesin (Mucinex La) 600 mg PO Q12 [facility] Last Admin: 11/12/16 09:40 Dose: 600 mg Levothyroxine Sodium (Synthroid) 100 mcg PO DAILY@0630 [facility] Last Admin: 11/12/16 06:10 Dose: 100 mcg Megestrol Acetate (Megace) 400 mg PO DAILY [facility] Last Admin: 11/12/16 09:40 Dose: 400 mg Pantoprazole Sodium (Protonix Ec Tab) 40 mg PO DAILY [facility] Last Admin: 11/12/16 09:40 Dose: 40 mg Tamsulosin HCl (Flomax) 0.4 mg PO DAILY [facility] Last Admin: 11/12/16 09:40 Dose: 0.4 mg - Labs Labs: 11/12/16 06:00 11/12/16 06:00
[2016-11-13] MEDS: Albuterol-Ipratrop 3 mg / 0.5 (3 ml) UD INH SCH ×6 (01:34→20:29)
[2016-11-13] MEDS: Acetylcysteine 20% Inhal Soln (4ml) INH SCH ×3 (01:34→20:29)
[2016-11-13] MEDS: Levothyroxine 100 MCG TAB PO SCH (05:57)
[2016-11-13] MEDS: Bacitracin Ointment 30 GM TUBE TOP SCH ×3 (06:09→22:33)
[2016-11-13 07:17] LABS: BASO # 0.1 K/uL (0.0-0.2); BASO % 1.3 % (0.0-2.0); EOS # 0.2 K/uL (0.0-0.7); EOS % 2.9 % (0.0-4.0); HEMOGLOBIN 9.4 g/dL (12.0-18.0); LYMPH # 0.6 K/uL (1.0-4.3); LYMPH % 9.2 % (20.0-40.0); MEAN CELL VOLUME 83.3 fL (80.0-94.0); MEAN CORPUSCULAR HEMOGLOBIN 26.8 pg (27.0-31.0); MEAN CORPUSCULAR HGB CONC 32.1 g/dL (33.0-37.0); MEAN PLATELET VOLUME 7.7 fL (7.2-11.7); MONO # 0.5 K/uL (0.0-0.8); MONO % 8.5 % (0.0-10.0); NEUT % 78.1 % (50.0-75.0); NRBC % 0.1 % (0.0-2.0); PLATELET COUNT 180 K/uL (130-400); RBC 3.52 Mil/uL (4.40-5.90); RED CELL DISTRIBUTION WIDTH 15.6 % (11.5-14.5); WHITE BLOOD COUNT 6.4 K/uL (4.8-10.8)
[2016-11-13 07:40] LABS: ALB/GLOB RATIO 0.9 (1.0-2.1)
[2016-11-13 07:41] LABS: CALCIUM 8.7 mg/dl (8.6-10.4); MAGNESIUM 2.1 mg/dL (1.6-2.3)
[2016-11-13 09:20] LABS: ANISOCYTOSIS SLIGHT; BANDS 4 % (0-2); EOSINOPHIL 2 % (0-4); LYMPHOCYTE 11 % (20-40); MONOCYTE 6 % (0-10); MYELOCYTE 2 % (0-0); NEUTROPHIL 75 % (50-75); PLATELET ESTIMATE NORMAL (NORMAL); TOTAL CELLS COUNTED 100
[2016-11-13 09:21] LABS: HYPOCHROMIC SLIGHT; MICROCYTOSIS SLIGHT; POIKILOCYTOSIS SLIGHT; TARGET CELLS SLIGHT
[2016-11-13] MEDS: guaiFENesin 600 mg ER Tab PO SCH ×2 (10:28→22:32)
[2016-11-13] MEDS: Megestrol Acetate 40 mg/ml Cup PO SCH (10:28)
[2016-11-13] MEDS: Ferric Sodium Gluconat Complex 62.5 mg/5 ml Vial IVPB SCH (10:29)
[2016-11-13] MEDS: Pantoprazole 40 mg EC Tab PO SCH (10:30)
--- NOTE | 2016-11-13 13:17 | CP.PCM.PN ---
Subjective - Date & Time of Evaluation Date of Evaluation: 11/13/16 Time of Evaluation: 13:17 Objective - Vital Signs/Intake and Output Vital Signs (last 24 hours): Temp Pulse Resp BP Pulse Ox 98.5 F 103 H 20 120/66 94 L 11/13/16 08:46 11/13/16 08:46 11/13/16 08:46 11/13/16 10:29 11/13/16 08:46 Intake and Output: 11/13/16 11/13/16 06:59 18:59 Intake Total 1130 Output Total 600 Balance 530 - Medications Medications: Current Medications Acetaminophen (Tylenol 325mg Tab) 650 mg PO Q4 PRN PRN Reason: Pain, Mild (1-3) Last Admin: 11/12/16 16:54 Dose: 650 mg Acetylcysteine (Acetylcysteine 20%) 4 ml INH RQ6 [facility] Last Admin: 11/13/16 07:20 Dose: 4 ml Albuterol/Ipratropium (Duoneb 3 Mg/0.5 Mg (3 Ml) Ud) 3 ml INH RQ4 [facility] Last Admin: 11/13/16 11:38 Dose: 3 ml Bacitracin (Bacitracin) 0 gm TOP QSHIFT [facility] Last Admin: 11/13/16 06:09 Dose: 1 applic Ferric Sodium Gluconate Complex (Ferrlecit) 125 mg IVPB DAILY [facility] Stop: 11/14/16 16:46 Last Admin: 11/13/16 10:29 Dose: 125 mg Folic Acid (Folic Acid) 1 mg PO DAILY [facility] Last Admin: 11/13/16 10:28 Dose: 1 mg Furosemide (Lasix) 40 mg IVP DAILY [facility] Last Admin: 11/13/16 10:29 Dose: 40 mg Guaifenesin (Mucinex La) 600 mg PO Q12 [facility] Last Admin: 11/13/16 10:28 Dose: 600 mg Levothyroxine Sodium (Synthroid) 100 mcg PO DAILY@0630 [facility] Last Admin: 11/13/16 05:57 Dose: 100 mcg Megestrol Acetate (Megace) 400 mg PO DAILY [facility] Last Admin: 11/13/16 10:28 Dose: 400 mg Pantoprazole Sodium (Protonix Ec Tab) 40 mg PO DAILY [facility] Last Admin: 11/13/16 10:30 Dose: 40 mg Tamsulosin HCl (Flomax) 0.4 mg PO DAILY [facility] Last Admin: 11/13/16 10:28 Dose: 0.4 mg - Labs Labs: 11/13/16 07:09 11/13/16 07:09
[2016-11-14 00:58] VITALS: RESP 20
[2016-11-14] MEDS: Acetylcysteine 20% Inhal Soln (4ml) INH SCH ×3 (01:04→13:21)
[2016-11-14] MEDS: Levothyroxine 100 MCG TAB PO SCH (06:00)
[2016-11-14] MEDS: Bacitracin Ointment 30 GM TUBE TOP SCH ×2 (06:02→13:00)
[2016-11-14 08:59] LABS: BASO # 0.1 K/uL (0.0-0.2); EOS # 0.3 K/uL (0.0-0.7); EOS % 5.2 % (0.0-4.0); HEMOGLOBIN 9.5 g/dL (12.0-18.0); LYMPH # 0.9 K/uL (1.0-4.3); LYMPH % 14.3 % (20.0-40.0); MEAN CORPUSCULAR HEMOGLOBIN 26.9 pg (27.0-31.0); MEAN CORPUSCULAR HGB CONC 32.4 g/dL (33.0-37.0); MEAN PLATELET VOLUME 7.3 fL (7.2-11.7); MONO # 0.7 K/uL (0.0-0.8); MONO % 10.9 % (0.0-10.0); NEUT # 4.4 K/uL (1.8-7.0); NEUT % 68.6 % (50.0-75.0); RBC 3.52 Mil/uL (4.40-5.90); RED CELL DISTRIBUTION WIDTH 15.2 % (11.5-14.5); WHITE BLOOD COUNT 6.4 K/uL (4.8-10.8)
[2016-11-14] MEDS: Pantoprazole 40 mg EC Tab PO SCH (09:08)
[2016-11-14] MEDS: Megestrol Acetate 40 mg/ml Cup PO SCH (09:08)
[2016-11-14 09:09] VITALS: BP 130/80
[2016-11-14 09:15] LABS: ALBUMIN 2.9 g/dL (3.5-5.0)
[2016-11-14] MEDS: Ferric Sodium Gluconat Complex 62.5 mg/5 ml Vial IVPB SCH (09:15)
[2016-11-14 09:18] LABS: ALB/GLOB RATIO 0.9 (1.0-2.1)
[2016-11-14 09:19] LABS: CALCIUM 8.5 mg/dl (8.6-10.4)
[2016-11-14] MEDS: guaiFENesin 600 mg ER Tab PO SCH (11:45)
[2016-11-14 12:11] VITALS: PULSE 87; TEMP 97.6; O2SAT 95
--- NOTE | 2016-11-14 17:20 | PCM.HF ---
Heart Failure Core Measure - Heart Failure Ejection Fraction: 40 % or Greater (EF 40-45%) ESTHER Inhibitor Prescribed: No Contraindication/Reason for not providing: CKD Beta-Ilsa Prescribed: None Contraindication/Reason for not providing: COPD Angiotensin II Receptor Ilsa Prescribed: No Contraindication/Reason for not providing: CKD AnticoagulationTherapy for Atrial Fibrillation/Atrialflutter: No Contraindication/Reason for not providing: no afib Aldosterone Antagonist Prescribed: No Contraindication/Reason for not providing: CKD Contraindication/Reason for not providing: EF >40% Implantable Cardioverter Defibrillator Therapy: No Contraindication/Reason for not providing: EF> 40 % Contraindication/Reason for not providing: not indicated - Follow up Will be discharged to: Residential Facility ([facility]
--- NOTE | 2016-11-14 17:26 | CP.PCM.PN ---
Subjective - Date & Time of Evaluation Date of Evaluation: 11/14/16 Time of Evaluation: 11:00 - Subjective Subjective: Awake, confused, follows commands, NAD. Objective - Vital Signs/Intake and Output Vital Signs (last 24 hours): Temp Pulse Resp BP Pulse Ox 97.6 F 87 20 130/80 95 11/14/16 08:00 11/14/16 08:00 11/14/16 08:00 11/14/16 09:08 11/14/16 08:00 Intake and Output: 11/14/16 11/14/16 06:59 18:59 Intake Total 640 Balance 640 - Medications Medications: Current Medications Acetaminophen (Tylenol 325mg Tab) 650 mg PO Q4 PRN PRN Reason: Pain, Mild (1-3) Last Admin: 11/13/16 23:58 Dose: 650 mg Acetylcysteine (Acetylcysteine 20%) 4 ml INH RQ6 [facility] Last Admin: 11/14/16 13:21 Dose: Not Given Bacitracin (Bacitracin) 0 gm TOP QSHIFT [facility] Last Admin: 11/14/16 13:00 Dose: 1 applic Folic Acid (Folic Acid) 1 mg PO DAILY [facility] Last Admin: 11/14/16 09:08 Dose: 1 mg Furosemide (Lasix) 40 mg IVP DAILY [facility] Last Admin: 11/14/16 09:08 Dose: 40 mg Guaifenesin (Mucinex La) 600 mg PO Q12 [facility] Last Admin: 11/14/16 11:45 Dose: 600 mg Levothyroxine Sodium (Synthroid) 100 mcg PO DAILY@0630 [facility] Last Admin: 11/14/16 06:00 Dose: 100 mcg Megestrol Acetate (Megace) 400 mg PO DAILY [facility] Last Admin: 11/14/16 09:08 Dose: 400 mg Pantoprazole Sodium (Protonix Ec Tab) 40 mg PO DAILY [facility] Last Admin: 11/14/16 09:08 Dose: 40 mg Tamsulosin HCl (Flomax) 0.4 mg PO DAILY [facility] Last Admin: 11/14/16 09:08 Dose: 0.4 mg - Labs Labs: 11/14/16 08:53 11/14/16 08:53 Assessment and Plan - Assessment and Plan (Free Text) Assessment: Patient is seen and examined. Confused, demented, no agitation or sob. Hemoglobin improved to 9.1 today, afebrile. D/W DR Olmos, plan to discharge back to [facility] and monitor closely. No acute distress.
--- NOTE | 2016-11-21 09:12 | PQF GENQUE ---
This form is a permanent part of the medical record Dr. Doan, Please clarify the diagnosis of Pneumonia and UTI mentioned on the DS. As per the chest x.ray there is no abnormal findings. Also, there is no treatment for either DXs. Thank you. Clarification of your documentation is requested to better reflect the severity of illness and intensity of treatment of your patient. Indicators present [] Specify: [] [] Specify: [] [] Specify: [] [] Specify: [] Location in the medical record that reflects the above clinical findings: [] Treatment Provided: [] PHYSICIAN'S RESPONSE Based on your medical judgment of the clinical indicators outlined above please clarify the following: [] Practitioner response [] If unable to determine, please check the box, sign and date. Present On Admission (POA) Indicator: [] Present at the time of admission [] Not present at the time of admission [] Clinically Undetermined In responding to this query, please exercise your independent professional judgment. The fact that a question is asked does not imply that any particular answer is desired or expected. Thank you for your clarification on this documentation. If you have any questions please call:[ ] * Thank you, [ ] post office clerk ARISTIDES
== END 2016-11-14 18:00 | DRG 683 ==
LOC: C.ER 23:01 → C.3T 11-08 01:28 → C.9E 11-08 02:22 → C.5T 11-08 07:15 → C.3T 11-09 06:51 → OBSVTOIN 11-10 12:58
PROVIDERS: ADMIT Internal Medicine Nephrology; ATTEND Internal Medicine Nephrology
PROC: 30233N1 Transfusion of Nonautologous Red Blood Cells into Peripheral Vein, Percutaneous Approach (ICD-10-PCS; principal; 2016-11-12)
DX: N17.9 Acute kidney failure, unspecified (principal); I50.42 Chronic combined systolic (congestive) and diastolic (congestive) heart failure; I11.0 Hypertensive heart disease with heart failure; F03.90 Unspecified dementia, unspecified severity, without behavioral disturbance, psychotic disturbance, mood disturbance, and anxiety; N39.0 Urinary tract infection, site not specified; J84.89 Other specified interstitial pulmonary diseases; K25.9 Gastric ulcer, unspecified as acute or chronic, without hemorrhage or perforation; E87.5 Hyperkalemia; D64.9 Anemia, unspecified; E03.9 Hypothyroidism, unspecified; G89.29 Other chronic pain; M54.9 Dorsalgia, unspecified; I48.91 Unspecified atrial fibrillation; J44.9 Chronic obstructive pulmonary disease, unspecified; M81.0 Age-related osteoporosis without current pathological fracture; K44.9 Diaphragmatic hernia without obstruction or gangrene; Z96.642 Presence of left artificial hip joint; Z85.038 Personal history of other malignant neoplasm of large intestine; Z87.891 Personal history of nicotine dependence

== ENCOUNTER 2016-12-23 05:31 | Emergency (ER) | payer MEDICARE ==
[2016-12-23 05:31] VITALS: PULSE 80; BMI 19.5
[2016-12-23] MEDS ORDERED: Lidocaine 5% Patch TD STA (06:03)
--- NOTE | 2016-12-23 06:04 | C.PDOC ---
History Of Present Illness 86 year old male with a history of osteoarthritis, COPD, CHF, and renal insufficiency was brought to the ED by EMS with complaints of chronic lower back pain that has been worsening. Patient states he has been using over the counter pain medications but with no relief. He notes he walks on his own without the assistance of a cane and denies fall, weakness, or numbness, hematuria. (Corinne Brady) History Per: Patient History/Exam Limitations: no limitations Onset/Duration Of Symptoms: Persistent Current Symptoms Are (Timing): Still Present Quality Of Discomfort: "Pain" Previous Symptoms: Back Pain (chronic back pain), Chronic Pain Associated Symptoms: None Recent travel outside of the [place]: No Additional History Per: EMS Time Seen by Provider: 12/23/16 05:53 Chief Complaint (Nursing): Back Pain Past Medical History Reviewed: Historical Data, Nursing Documentation, Vital Signs - Medical History PMH: Anemia, Arthritis (L HIP SURG), Atrial Fibrillation, Bronchitis, CHF, COPD , Emphysema, Gastritis, HTN, Hypothyroidism, Osteoporosis, Pneumonia, Chronic Kidney Disease Surgical History: Family History: States: Diabetes - Social History Hx Tobacco Use: No (quit 15 yrs ago, was a heavy smoker) Hx Alcohol Use: No Hx Substance Use: No - Immunization History Hx Tetanus Toxoid Vaccination: No Hx Influenza Vaccination: No Hx Pneumococcal Vaccination: No Review Of Systems Constitutional: Negative for: Fever, Chills Cardiovascular: Negative for: Chest Pain, Palpitations Respiratory: Negative for: Shortness of Breath Gastrointestinal: Negative for: Nausea, Vomiting, Abdominal Pain Genitourinary: Negative for: Dysuria, Frequency, Incontinence, Hematuria Musculoskeletal: Positive for: Back Pain Neurological: Negative for: Weakness, Numbness Physical Exam - Physical Exam Appears: Non-toxic, Other (Patient is elderly, thin, and COPD appearance) Skin: Warm, Dry, No Diaphoretic, No Pale, No Rash Head: Atraumatic, Normacephalic Eye(s): bilateral: Normal Inspection Oral Mucosa: Moist Neck: Supple Chest: Symmetrical, No Deformity Cardiovascular: Rhythm Regular Respiratory: Decreased Breath Sounds (at bilateral bases ) Gastrointestinal/Abdominal: Soft, No Tenderness, No Distention, No Guarding, No Rebound Back: Normal Inspection (no ecchymosis, no swelling or bulging), Paraspinal Tenderness (paralumbar tenderness ) Extremity: Normal ROM, No Pedal Edema, No Calf Tenderness Neurological/Psych: Oriented x3, Normal Speech ED Course And Treatment O2 Sat by Pulse Oximetry: 97 (room air) Pulse Ox Interpretation: Normal Medical Decision Making Medical Decision Makin86 year old male with low back pain, history of chronic back pain and denies any injury. No apparent signs of injury on exam. Patient was treated with Tylenol, Neurontin, and lidocaine patch. Prior records reviewed, patient last seen and admitted 11/08/16 for renal insufficiency and hyperkalemia. Patient had MRI 04/24/16 which shows compression fractures at T6 and T9 without retropulsion or epidural hematoma. Muliple old osteroporotic compression fractures in T8, T12, L1, L2 vertebra. Upon re-eval, patient reports pain mildly improving. Patient advised to follow up with PCP or clinic in few days and Rx given (Corinne Brady) Disposition Counseled Patient/Family Regarding: Diagnosis, Need For Followup, Rx Given - Disposition Disposition Time: 06:50 - POA Present On Arrival: None - Disposition Referrals: [facility] [Outside] Finn Gill MD [Staff Provider] - Disposition: HOME/ ROUTINE Condition: STABLE Additional Instructions: Please follow up with your doctor or clinic for further care Take pain medicine as needed Prescriptions: Gabapentin 300 mg PO DAILY #15 capsule Instructions: Back Pain (ED) Forms: [facility] (Russian) - Clinical Impression Clinical Impression: Back pain - PA / POST SPLITTER / Resident Statement MD/ has reviewed & agrees with the documentation as recorded. - Scribe Statement The provider has reviewed the documentation as recorded by the Scribe - Scribe Statement Leesa Ludwig All medical record entries made by the Scribe were at my direction and personally dictated by me. I have reviewed the chart and agree that the record accurately reflects my personal performance of the history, physical exam, medical decision making, and the department course for this patient. I have also personally directed, reviewed, and agree with the discharge instructions and disposition. (Corinne Brady) Addendum Addendum: 12/23/16 08:23 Patient seen by PA on overnight. Elderly male c/o back pain. 02/19, difficulty standing. Patient lives alone, states he was able to care for himself but " these things happen suddenly". At the start of my shift the patient was discharged, pending voucher for a ride home, however, he still has pain and difficulty walking. On exam frail, pin point pupils chest clear abdomen soft point tenderness to L5-L4 Unable to ambulate. Plan: Pain management CT LS spine re-evaluate (Rocio Dan)
[2016-12-23] MEDS ORDERED: Lidocaine 5% Patch TD ONE (06:19)
[2016-12-23 06:49] VITALS: TEMP 97.8
[2016-12-23] MEDS ORDERED: Tramadol 25 mg PO STA (08:18)
[2016-12-23] MEDS ORDERED: Tramadol 25 mg ONE (08:27)
[2016-12-23 08:37] VITALS: RESP 22
--- NOTE | 2016-12-23 09:59 | CT ---
PROCEDURE: CT Lumbar Spine without contrast HISTORY: pain and point tenderness COMPARISON: Comparison is made to the previous CT of the abdomen and pelvis dated 05/08/2016 TECHNIQUE: Axial computed tomography images were obtained of the lumbar spine without the use of intravenous contrast. Coronal and sagittal reformatted images were created and reviewed. Radiation dose: Total exam DLP = 471.46 mGy-cm. This CT exam was performed using one or more of the following dose reduction techniques: Automated exposure control, adjustment of the mA and/or kV according to patient size, and/or use of iterative reconstruction technique. FINDINGS: VERTEBRAE: Again seen a is diffuse severe osteopenia. Again seen are multiple compression deformities in the lower thoracic and upper lumbar spine. There are multiple compression fractures at the lumbar spine. There is severe compression deformity of L1 with vertebral plana appearance again noted. There is interval worsening of compression deformity of L2 since the previous exam. Mild compression deformity of L3 is again noted. Mlxk-em-fylhotae compression deformity of L4 appears worse compared to the previous study. Interval worsening of compression deformity of L5 since the previous study. DISCS/SPINAL CANAL/NEURAL FORAMINA: L1-2: There is mild narrowing of the spinal canal at this level. L2-3: There is small osteophyte disc bulging complex associated with posterior ligament and facet joint hypertrophy which resulting in moderate spinal and neural foraminal narrowing. L3-4: Small to moderate-sized disc bulging associated with posterior ligament and facet joint hypertrophy which resulting in mild spinal and neural foraminal narrowing. L4-5: There is a disc bulging seen associated with posterior ligament and facet joint hypertrophy which resulting in [id number]-uoixtnyt spinal and neural foraminal narrowing left more than right. L5-S1: Small osteophyte disc bulging complex without evidence of significant spinal or neural foraminal narrowing. PARASPINAL SOFT TISSUES: Opacity seen at the lung bases may represent atelectasis. OTHER FINDINGS: None. IMPRESSION: Diffuse severe osteopenia. Interval worsening of compression deformity of the lumbar vertebrae since the previous exam. Multilevel osteophyte disc bulging complex associated with spinal and neural foraminal narrowing more prominent at L2-L3 and L3-L4 as described above.
[2016-12-23 11:27] VITALS: BP 143/65; PULSE 83; O2SAT 96
== END 2016-12-23 12:03 | disposition home or self-care (01) ==
LOC: C.ER 05:31
DX: M54.5 Low back pain (principal)

== ENCOUNTER 2017-03-04 01:28 | Inpatient (IN) | payer MEDICARE, MEDICAID ==
[2017-03-04 01:28] VITALS: PULSE 80; BMI 19.5
--- NOTE | 2017-03-04 01:48 | C.PDOC ---
History Of Present Illness Patient BIBA for evaluation of chest pain that woke patient up (approx 30 min [employer]), found to be in rapid atrial fibrillation and given Cardizem 10mg IVP in the field. As per EMS, daughter stated that patient typically has low BP. Patient currently denies chest pain, SOB, abdominal pain, nausea/vomiting, palpitations. PMHx of CHF, COPD, anemia (currently on Feosol), HTN, hypothyroidism, pneumonia, atrial fibrillation. Time Seen by Provider: 03/04/17 01:30 Chief Complaint (Nursing): Chest Pain History Per: Patient, EMS History/Exam Limitations: no limitations Onset/Duration Of Symptoms: Mins Current Symptoms Are (Timing): Better Severity: Mild Quality: "Pain" Past Medical History Reviewed: Historical Data, Nursing Documentation, Vital Signs Vital Signs: Last Vital Signs Temp 97.9 F 03/06/17 08:00 Pulse 115 H 03/06/17 08:00 Resp 25 H 03/06/17 08:00 BP 96/61 L 03/06/17 04:01 Pulse Ox 85 L 03/06/17 08:00 - Medical History PMH: Anemia, Arthritis (L HIP SURG), Atrial Fibrillation, Bronchitis, CHF, COPD , Emphysema, Gastritis, HTN, Hypothyroidism, Osteoporosis, Pneumonia Surgical History: - [facility] Procedures BONE MARROW BIOPSY (10/20/03) CLOSED ENDOSCOPIC BIOPSY OF LARGE INTESTINE (05/02/14) COLONOSCOPY (10/20/03) ESOPHAGOGASTRODUODENOSCOPY [EGD] W/CLOSED BIOPSY (10/20/03) EXCISION OF ASCENDING COLON, ENDO, DIAGN (06/09/16) EXCISION OF LEFT UPPER LUNG LOBE, PERC APPROACH, DIAGN (06/09/16) EXCISION OF SIGMOID COLON, ENDO, DIAGN (06/09/16) EXCISION OF STOMACH, ENDO, DIAGN (06/09/16) INJECT STEROID (10/20/03) INJECTION INTO JOINT (10/20/03) INSERTION OF INFUSION DEV INTO SUP VENA CAVA, PERC APPROACH (09/12/16) INSPECTION OF UPPER INTESTINAL TRACT, ENDO (05/27/16) INTRODUCTION OF NUTRITIONAL INTO PERIPH ART, PERC APPROACH (06/09/16) PACKED CELL TRANSFUSION (10/20/03) RESECTION OF APPENDIX, OPEN APPROACH (06/09/16) RESECTION OF SIGMOID COLON, OPEN APPROACH (06/09/16) TRANSFUSE NONAUT RED BLOOD CELLS IN PERIPH VEIN, PERC (11/10/16) VACCINATION NEC (05/02/14) Family History: States: Diabetes - Social History Hx Tobacco Use: No (quit 15 yrs ago, was a heavy smoker) Hx Alcohol Use: No Hx Substance Use: No - Immunization History Hx Tetanus Toxoid Vaccination: No Hx Influenza Vaccination: No Hx Pneumococcal Vaccination: No Review Of Systems Except As Marked, All Systems Reviewed And Found Negative. Constitutional: Negative for: Fever, Chills Cardiovascular: Positive for: Chest Pain. Negative for: Palpitations Respiratory: Negative for: Cough, Shortness of Breath Gastrointestinal: Negative for: Nausea, Vomiting, Abdominal Pain Physical Exam - Physical Exam Appears: Well, Non-toxic, No Acute Distress, Other (frail and elderly appearing ) Skin: Normal Color, Warm, Dry, Ecchymosis (small scattered ecchymoses on extremities) Head: Normacephalic Oral Mucosa: Moist Chest: Symmetrical Cardiovascular: Rhythm Regular, No Murmur Respiratory: No Accessory Muscle Use, Rales (mild at bases B/L), No Rhonchi, No Wheezing, Other (coarse breath sounds B/L) Gastrointestinal/Abdominal: Normal Exam, Bowel Sounds, Soft, No Tenderness Extremity: Normal ROM, No Pedal Edema, No Calf Tenderness Extremity: Bilateral: Atraumatic, Normal Color And Temperature, Normal ROM Neurological/Psych: Oriented x3 ED Course And Treatment - Laboratory Results Result Diagrams: 03/04/17 01:47 03/04/17 01:47 ECG: Interpreted By Me, Viewed By Me (NSR 91 bpm, left axis deviation, no acute ST/T wave changes ) ECG Interpretation: No Acute Changes O2 Sat by Pulse Oximetry: 95 (RA) Pulse Ox Interpretation: Normal - Radiology CXR: Interpreted by Me, Viewed By Me CXR Interpretation: Yes: Other (hazy opacities B/L, ? lung masses, no effusions) . No: Infiltrates Progress Note: Rhythm strips from the field reviewed, showed atrial fibrillation with RVR. EKG in ED is NSR. Blood work, CXR, EKG ordered and reviewed. Prior visits reviewed, EKG from 06/13/2016 confirms prior atrial fibrillation. 2:05AM - Patient's daughter at bedside. She confirms patient's prior history of atrial fibrillation, and also states that his blood pressure is typically low. He is not currently on ASA at home, or other blodo thinners. Daughter also states patient is full code, not DNR/DNI. - Physician Consult Information Physician Contacted: Angelica Doan Outcome Of Conversation: Discussed patient with Dr. Jayson Doan, agrees with admission to his service for chest pain, r/o ACS, A fib with RVR, anemia, acute on chronic renal failure, dehydration. Disposition - Disposition Disposition: HOSPITALIZED Disposition Time: 02:29 Condition: STABLE - Clinical Impression Clinical Impression: Chest pain, Acute on chronic renal failure, Anemia, Atrial fibrillation with RVR, Dehydration Decision To Admit - Pt Status Changed To: Hospital Disposition Of: Inpatient - Admit Certification Admit to Inpatient:: After my assessment, the patient will require hospitalization for at least two midnights. This is because of the severity of symptoms shown, intensity of services needed, and/or the medical risk in this patient being treated as an outpatient. - InPatient: Physician Admission Certification: I certify that this patient requires 2 or more midnights of care for the following reason:: see notes - . Bed Request Type: Telemetry Admitting Physician: Angelica Doan Patient Diagnosis: Chest pain, Atrial fibrillation with RVR, Anemia, Acute on chronic renal failure, Dehydration
[2017-03-04 01:52] LABS: BASO # 0.1 K/uL (0.0-0.2); BASO % 1.2 % (0.0-2.0); EOS # 0.8 K/uL (0.0-0.7); EOS % 7.3 % (0.0-4.0); HEMATOCRIT 29.1 % (35.0-51.0); LYMPH # 1.4 K/uL (1.0-4.3); LYMPH % 12.4 % (20.0-40.0); MEAN CELL VOLUME 84.1 fL (80.0-94.0); MEAN CORPUSCULAR HEMOGLOBIN 26.1 pg (27.0-31.0); MEAN CORPUSCULAR HGB CONC 31.1 g/dL (33.0-37.0); MEAN PLATELET VOLUME 8.1 fL (7.2-11.7); MONO # 0.9 K/uL (0.0-0.8); MONO % 7.9 % (0.0-10.0); RED CELL DISTRIBUTION WIDTH 13.6 % (11.5-14.5); WHITE BLOOD COUNT 11.5 K/uL (4.8-10.8)
[2017-03-04 01:57] LABS: INR 1.1
[2017-03-04] MEDS ORDERED: Sodium Chloride 0.9% 250 ML IV ONE ×2 (01:58→02:16)
[2017-03-04 02:06] LABS: CHLORIDE 104 mmol/L (98-107)
[2017-03-04 02:07] LABS: SODIUM 136 mmol/L (132-148)
[2017-03-04 02:09] LABS: GFR AFRICAN-AMERICAN 22
[2017-03-04 02:10] LABS: ALB/GLOB RATIO 0.9 (1.0-2.1); ALKALINE PHOSPHATASE 95 U/L (38-126); ALT/SGPT 22 U/L (21-72); AST/SGOT 17 U/L (17-59); BILIRUBIN,TOTAL 0.8 mg/dL (0.2-1.3); BLOOD UREA NITROGEN 75 mg/dL (9-20); CARBON DIOXIDE 16 mmol/L (22-30); GLUCOSE,RANDOM 90 mg/dL (75-110); TOTAL PROTEIN 8.1 g/dL (6.3-8.3)
[2017-03-04 02:12] LABS: POTASSIUM 5.7 mmol/L (3.6-5.2)
--- NOTE | 2017-03-04 09:05 | RAD ---
PROCEDURE: CHEST RADIOGRAPH, 1 VIEW HISTORY: cp COMPARISON: 11/08/2016 FINDINGS: LUNGS: Clear. PLEURA: No pneumothorax or pleural fluid seen. CARDIOVASCULAR: Normal. OSSEOUS STRUCTURES: No significant abnormalities. VISUALIZED UPPER ABDOMEN: Normal. OTHER FINDINGS: None. IMPRESSION: No active disease.
[2017-03-04] MEDS ORDERED: Sod Polystyrene Sulf 15 gm/60 ml Susp PO ONE (12:49)
[2017-03-04] MEDS: Enoxaparin 60 mg Syringe SC SCH (12:59)
--- NOTE | 2017-03-04 13:15 | CP.PCM.CON ---
History of Present Illness - History of Present Illness History of Present Illness: 86-year-old indra with questionable history of colon malignancy, was in a [facility] with questionable heart failure. Reported ejection fraction of 45% on echo. Also with prior history of atrial fibrillation. At this time she is admitted through the emergency department with chest pain and atrial fibrillation. Initially with hypotension and renal insufficiency. He received Cardizem, the heartrates is controlled. At this time she is pain-free and the rate in the 80s. Observe renal function, check echocardiogram and thyroid- stimulating hormone. Observe with the GI malignancy, now back in sinus Review of Systems - Constitutional Constitutional: Anorexia, Weakness - EENT Eyes: absent: Discharge Ears: absent: Ear Discharge, Dizziness Nose/Mouth/Throat: absent: Epistaxis - Cardiovascular Cardiovascular: absent: Acrocyanosis, Chest Pain, Diaphoresis, Leg Edema, Palpitations, Syncope - Respiratory Respiratory: absent: Cough, Dyspnea, Hemoptysis - Gastrointestinal Gastrointestinal: absent: Abdominal Pain, Diarrhea, Nausea, Vomiting - Genitourinary Genitourinary: absent: Difficulty Urinating Past Patient History - Infectious Disease Hx of Infectious Diseases: None - Past Medical History & Family History Past Medical History?: Yes - Past Social History Smoking Status: Former Smoker - CARDIAC Hx Atrial Fibrillation: Yes Hx Congestive Heart Failure: Yes Hx Hypertension: Yes - PULMONARY Hx Bronchitis: Yes Hx Chronic Obstructive Pulmonary Disease (COPD): Yes Hx Emphysema: Yes Hx Pneumonia: Yes - NEUROLOGICAL Hx Neurological Disorder: No - HEENT Hx HEENT Problems: Yes Hx Cataracts: Yes - RENAL Hx Chronic Kidney Disease: No Hx Kidney Stones: No - ENDOCRINE/METABOLIC Hx Hypothyroidism: Yes - HEMATOLOGICAL/ONCOLOGICAL Hx Anemia: Yes - INTEGUMENTARY Hx Dermatological Problems: No - MUSCULOSKELETAL/RHEUMATOLOGICAL Hx Falls: Yes - GASTROINTESTINAL Hx Gastritis: Yes - GENITOURINARY/GYNECOLOGICAL Hx Sexually Transmitted Disorders: No - PSYCHIATRIC Hx Substance Use: No - SURGICAL HISTORY Hx Surgeries: Yes Hx Joint Replacement: Yes (left hip replacement) Hx Orthopedic Surgery: Yes (hip surgery) Other/Comment: colon resection 06/2016 - ANESTHESIA Hx Anesthesia: Yes Hx Anesthesia Reactions: No Hx Malignant Hyperthermia: No Meds Allergies/Adverse Reactions: Allergies Allergy/AdvReac Type Severity Reaction Status Date / Time No Known Allergies Allergy Verified 03/04/17 01:40 - Medications Medications: Current Medications Acetaminophen (Tylenol 325mg Tab) 650 mg PO Q4 PRN PRN Reason: Pain, Mild (1-3) Albuterol/Ipratropium (Duoneb 3 Mg/0.5 Mg (3 Ml) Ud) 3 ml INH RQ4 [facility] Aspirin (Aspirin) 325 mg PO DAILY [facility] Clopidogrel Bisulfate (Plavix) 75 mg PO DAILY [facility] Last Admin: 03/04/17 09:49 Dose: 75 mg Enoxaparin Sodium (Lovenox) 60 mg SC DAILY [facility] Last Admin: 03/04/17 12:59 Dose: 60 mg Famotidine (Pepcid) 20 mg PO DAILY [facility] Last Admin: 03/04/17 09:49 Dose: 20 mg Famotidine (Pepcid) 20 mg PO DAILY [facility] Ferrous Sulfate (Feosol) 325 mg PO DAILY [facility] Ceftriaxone Sodium 1 gm/ (Sodium Chloride) 100 mls @ 100 mls/hr IVPB DAILY [facility] Levothyroxine Sodium (Synthroid) 100 mcg PO QD7 [facility] Megestrol Acetate (Megace) 400 mg PO DAILY [facility] Tamsulosin HCl (Flomax) 0.4 mg PO DAILY [facility] Physical Exam - Constitutional Appears: Non-toxic - Head Exam Head Exam: ATRAUMATIC - Eye Exam Eye Exam: EOMI - ENT Exam ENT Exam: Mucous Membranes Moist - Neck Exam Neck exam: Negative for: Lymphadenopathy, Thyromegaly - Respiratory Exam Respiratory Exam: Clear to Auscultation Bilateral. absent: Rales - Cardiovascular Exam Cardiovascular Exam: REGULAR RHYTHM, Systolic Murmur - GI/Abdominal Exam GI & Abdominal Exam: Normal Bowel Sounds. absent: Organomegaly - Rectal Exam Rectal Exam: Deferred - Extremities Exam Extremities exam: Positive for: normal capillary refill. Negative for: calf tenderness - Neurological Exam Neurological exam: Alert, Oriented x3 - Psychiatric Exam Psychiatric exam: Normal Mood - Skin Skin Exam: Dry Results - Vital Signs Recent Vital Signs: Last Vital Signs Temp 97.6 F 03/04/17 04:00 Pulse 87 03/04/17 10:55 Resp 21 03/04/17 06:00 BP 99/45 L 03/04/17 06:00 Pulse Ox 97 03/04/17 06:00 - Labs Result Diagrams: 03/04/17 01:47 03/04/17 01:47 Labs: Laboratory Results - last 24 hr 03/04/17 03/04/17 03/04/17 01:47 01:47 01:47 WBC 11.5 H D RBC 3.47 L Hgb 9.0 L Hct 29.1 L MCV 84.1 MCH 26.1 L MCHC 31.1 L RDW 13.6 Plt Count 249 MPV 8.1 Neut % (Auto) 71.2 Lymph % (Auto) 12.4 L Ashley % (Auto) 7.9 Eos % (Auto) 7.3 H Baso % (Auto) 1.2 Neut # 8.2 H Lymph # 1.4 Ashley # 0.9 H Eos # 0.8 H Baso # 0.1 PT 12.4 H INR 1.1 APTT 39 H Sodium 136 Potassium 5.7 H Chloride 104 Carbon Dioxide 16 L Anion Gap 22 H BUN 75 H Creatinine 3.3 H Est GFR ( Amer) 22 Est GFR (Non-Af Amer) 18 POC Glucose (mg/dL) Random Glucose 90 Calcium 9.0 Total Bilirubin 0.8 AST 17 ALT 22 Alkaline Phosphatase 95 Total Creatine Kinase 77 CK-MB (Mass) 3.63 H Troponin I < 0.0120 NT-Pro-B Natriuret Pep 1200 H Total Protein 8.1 Albumin 3.9 Globulin 4.3 H Albumin/Globulin Ratio 0.9 L 03/04/17 01:48 WBC RBC Hgb Hct MCV MCH MCHC RDW Plt Count MPV Neut % (Auto) Lymph % (Auto) Ashley % (Auto) Eos % (Auto) Baso % (Auto) Neut # Lymph # Ashley # Eos # Baso # PT INR APTT Sodium Potassium Chloride Carbon Dioxide Anion Gap BUN Creatinine Est GFR ( Amer) Est GFR (Non-Af Amer) POC Glucose (mg/dL) 109 Random Glucose Calcium Total Bilirubin AST ALT Alkaline Phosphatase Total Creatine Kinase CK-MB (Mass) Troponin I NT-Pro-B Natriuret Pep Total Protein Albumin Globulin Albumin/Globulin Ratio Assessment & Plan (1) Heart failure Status: Acute Comment: 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
[2017-03-04 13:59] LABS: THYROID STIMULATING HORMONE 0.05 mIU/L (0.46-4.68)
[2017-03-04] MEDS: Albuterol-Ipratrop 3 mg / 0.5 (3 ml) UD INH SCH ×2 (16:43→20:08)
[2017-03-04] MEDS: cefTRIAXone IV 1 gm in Dextros 50 ML IVPB SCH (17:55)
--- NOTE | 2017-03-04 19:10 | CP.PCM.HP ---
History of Present Illness - History of Present Illness History of Present Illness: An 86-year-old male with PMHCHF, COPD, anemia, HTN, hypothyroidism and atrial fibrillation presents to the ER with C/Ochest pain when he woke up in the morning. 's C/Ochest pain which made him wake up in the morning. It was sudden, severe , excruciating, heaviness, squeezing type, intensity of 8/10, occurred at rest, not relieved by any medications. C/Ofunny sensation in the chest which made him wake up in the morning. No C/Odyspnea, cough, hemoptysis, orthopnea, PND. Past Patient History - Infectious Disease Hx of Infectious Diseases: None - Past Medical History & Family History Past Medical History?: Yes - Past Social History Smoking Status: Former Smoker - CARDIAC Hx Atrial Fibrillation: Yes Hx Congestive Heart Failure: Yes Hx Hypertension: Yes - PULMONARY Hx Bronchitis: Yes Hx Chronic Obstructive Pulmonary Disease (COPD): Yes Hx Emphysema: Yes Hx Pneumonia: Yes - NEUROLOGICAL Hx Neurological Disorder: No - HEENT Hx HEENT Problems: Yes Hx Cataracts: Yes - RENAL Hx Chronic Kidney Disease: No Hx Kidney Stones: No - ENDOCRINE/METABOLIC Hx Hypothyroidism: Yes - HEMATOLOGICAL/ONCOLOGICAL Hx Anemia: Yes - INTEGUMENTARY Hx Dermatological Problems: No - MUSCULOSKELETAL/RHEUMATOLOGICAL Hx Falls: Yes - GASTROINTESTINAL Hx Gastritis: Yes - GENITOURINARY/GYNECOLOGICAL Hx Sexually Transmitted Disorders: No - PSYCHIATRIC Hx Substance Use: No - SURGICAL HISTORY Hx Surgeries: Yes Hx Joint Replacement: Yes (left hip replacement) Hx Orthopedic Surgery: Yes (hip surgery) Other/Comment: colon resection 06/2016 - ANESTHESIA Hx Anesthesia: Yes Hx Anesthesia Reactions: No Hx Malignant Hyperthermia: No Meds Allergies/Adverse Reactions: Allergies Allergy/AdvReac Type Severity Reaction Status Date / Time No Known Allergies Allergy Verified 03/04/17 01:40 Physical Exam - Constitutional Appears: Well - Head Exam Head Exam: ATRAUMATIC, NORMAL INSPECTION, NORMOCEPHALIC - Eye Exam Eye Exam: EOMI, Normal appearance, PERRL Pupil Exam: NORMAL ACCOMODATION, PERRL - ENT Exam ENT Exam: Mucous Membranes Moist, Normal Exam - Neck Exam Neck exam: Positive for: Normal Inspection - Respiratory Exam Respiratory Exam: Decreased Breath Sounds - Cardiovascular Exam Cardiovascular Exam: REGULAR RHYTHM, +S1, +S2 - GI/Abdominal Exam GI & Abdominal Exam: Diminished Bowel Sounds, Soft - Rectal Exam Rectal Exam: Deferred Results - Vital Signs Recent Vital Signs: Last Vital Signs Temp 97.8 F 03/04/17 16:00 Pulse 79 03/04/17 16:00 Resp 20 03/04/17 16:00 BP 130/86 03/04/17 16:00 Pulse Ox 97 03/04/17 16:00 - Labs Result Diagrams: 03/04/17 01:47 03/04/17 01:47 Labs: Laboratory Results - last 24 hr 03/04/17 03/04/17 03/04/17 01:47 01:47 01:47 WBC 11.5 H D RBC 3.47 L Hgb 9.0 L Hct 29.1 L MCV 84.1 MCH 26.1 L MCHC 31.1 L RDW 13.6 Plt Count 249 MPV 8.1 Neut % (Auto) 71.2 Lymph % (Auto) 12.4 L Mccracken % (Auto) 7.9 Eos % (Auto) 7.3 H Baso % (Auto) 1.2 Neut # 8.2 H Lymph # 1.4 Mccracken # 0.9 H Eos # 0.8 H Baso # 0.1 PT 12.4 H INR 1.1 APTT 39 H Sodium 136 Potassium 5.7 H Chloride 104 Carbon Dioxide 16 L Anion Gap 22 H BUN 75 H Creatinine 3.3 H Est GFR ( Amer) 22 Est GFR (Non-Af Amer) 18 POC Glucose (mg/dL) Random Glucose 90 Calcium 9.0 Total Bilirubin 0.8 AST 17 ALT 22 Alkaline Phosphatase 95 Total Creatine Kinase 77 CK-MB (Mass) 3.63 H Troponin I < 0.0120 Troponin I, Quant NT-Pro-B Natriuret Pep 1200 H Total Protein 8.1 Albumin 3.9 Globulin 4.3 H Albumin/Globulin Ratio 0.9 L TSH 3rd Generation 03/04/17 03/04/17 01:48 13:13 WBC RBC Hgb Hct MCV MCH MCHC RDW Plt Count MPV Neut % (Auto) Lymph % (Auto) Mccracken % (Auto) Eos % (Auto) Baso % (Auto) Neut # Lymph # Mccracken # Eos # Baso # PT INR APTT Sodium Potassium Chloride Carbon Dioxide Anion Gap BUN Creatinine Est GFR ( Amer) Est GFR (Non-Af Amer) POC Glucose (mg/dL) 109 Random Glucose Calcium Total Bilirubin AST ALT Alkaline Phosphatase Total Creatine Kinase 48 L CK-MB (Mass) 3.76 H Troponin I Troponin I, Quant 0.0340 NT-Pro-B Natriuret Pep Total Protein Albumin Globulin Albumin/Globulin Ratio TSH 3rd Generation 0.05 L
[2017-03-05] MEDS: Albuterol-Ipratrop 3 mg / 0.5 (3 ml) UD INH SCH ×6 (00:23→19:03)
[2017-03-05] MEDS ORDERED: Levothyroxine 100 MCG TAB PO SCH (07:30)
[2017-03-05] MEDS: Enoxaparin 60 mg Syringe SC SCH (09:21)
[2017-03-05] MEDS: Megestrol Acetate 40 mg/ml Cup PO SCH (09:21)
--- NOTE | 2017-03-05 13:04 | CP.PCM.PN ---
Subjective - Date & Time of Evaluation Date of Evaluation: 03/05/17 Time of Evaluation: 13:00 - Subjective Subjective: Back in sinus, no shortness of breath, follow-up with echo. repeat NL LV contractility Objective - Vital Signs/Intake and Output Vital Signs (last 24 hours): Temp Pulse Resp BP Pulse Ox 97.8 F 94 H 20 106/94 H 96 03/05/17 04:00 03/05/17 08:00 03/05/17 04:00 03/05/17 04:00 03/05/17 04:00 Intake and Output: 03/05/17 03/05/17 06:59 18:59 Intake Total 100 Output Total 550 Balance -450 - Medications Medications: Current Medications Acetaminophen (Tylenol 325mg Tab) 650 mg PO Q4 PRN PRN Reason: Pain, Mild (1-3) Albuterol/Ipratropium (Duoneb 3 Mg/0.5 Mg (3 Ml) Ud) 3 ml INH RQ4 [facility] Last Admin: 03/05/17 11:09 Dose: 3 ml Aspirin (Aspirin) 325 mg PO DAILY [facility] Last Admin: 03/05/17 09:20 Dose: 325 mg Clopidogrel Bisulfate (Plavix) 75 mg PO DAILY [facility] Last Admin: 03/05/17 09:20 Dose: 75 mg Enoxaparin Sodium (Lovenox) 60 mg SC DAILY [facility] Last Admin: 03/05/17 09:21 Dose: 60 mg Famotidine (Pepcid) 20 mg PO DAILY [facility] Last Admin: 03/05/17 09:20 Dose: 20 mg Famotidine (Pepcid) 20 mg PO DAILY [facility] Last Admin: 03/05/17 10:17 Dose: Not Given Ferrous Sulfate (Feosol) 325 mg PO DAILY [facility] Last Admin: 03/05/17 09:20 Dose: 325 mg Ceftriaxone Sodium (Rocephin Iv 1 Gm Duplex) 50 mls @ 100 mls/hr IVPB DAILY@ 1800 [facility] Last Admin: 03/04/17 17:55 Dose: 100 mls/hr Levothyroxine Sodium (Synthroid) 100 mcg PO DAILY@0630 [facility] Megestrol Acetate (Megace) 400 mg PO DAILY [facility] Last Admin: 03/05/17 09:21 Dose: 400 mg Tamsulosin HCl (Flomax) 0.4 mg PO DAILY [facility] Last Admin: 03/05/17 09:20 Dose: 0.4 mg - Labs Labs: 03/04/17 01:47 03/04/17 01:47 PT 12.4 SECONDS (9.7-12.2) H 03/04/17 01:47 INR 1.1 03/04/17 01:47 APTT 39 SECONDS (21-34) H 03/04/17 01:47 - Constitutional Appears: Non-toxic - Head Exam Head Exam: ATRAUMATIC - Eye Exam Eye Exam: EOMI - ENT Exam ENT Exam: Mucous Membranes Moist - Neck Exam Neck Exam: absent: Lymphadenopathy, Thyromegaly - Respiratory Exam Respiratory Exam: Clear to Ausculation Bilateral. absent: Rales - Cardiovascular Exam Cardiovascular Exam: REGULAR RHYTHM, Murmur - GI/Abdominal Exam GI & Abdominal Exam: Normal Bowel Sounds. absent: Organomegaly - Rectal Exam Rectal Exam: Deferred - Extremities Exam Extremities Exam: Normal Capillary Refill. absent: Calf Tenderness - Neurological Exam Neurological Exam: Alert, Oriented x3 - Psychiatric Exam Psychiatric exam: Normal Mood - Skin Skin Exam: Dry Assessment and Plan (1) Heart failure Status: Acute (2) NOEMI (acute kidney injury) Status: Acute (3) Atrial fibrillation with rapid ventricular response Status: Chronic
--- NOTE | 2017-03-05 17:22 | CARD ---
APPROVED REPORT EXAM: Two-dimensional and M-mode echocardiogram with Doppler and color Doppler. Other Information Quality : GoodRhythm : NSR INDICATION Atrial Fibrillation Chest Pain COPD RISK FACTORS Hypertension Hyperlipidemia M-Mode DIMENSIONS RVDd1.21 (2.1-3.2cm)Left Atrium (MM)3.90 (2.5-4.0cm) IVSd0.98 (0.7-1.1cm)Aortic Root3.08 (2.2-3.7cm) LVDd5.54 (4.0-5.6cm)Aortic Cusp Exc.1.76 (1.5-2.0cm) PWd0.94 (0.7-1.1cm)FS (%) 33 % LVDs3.71 (2.0-3.8cm)LVEF (%)61 (>50%) Aortic Valve AoV Peak Wmpgehgd140.0cm/Osman Peak GR.9mmHg Mitral Valve MV E Phcgnhdj41.2cm/sMV A Rbsqjqix046.2cm/sE/A ratio0.7 TDI E/Lateral E'0.0E/Medial E'0.0 Tricuspid Valve TR Peak [id number]/sTR Peak [id number] LEFT VENTRICLE The left ventricle is normal size. There is normal left ventricular wall thickness. The left ventricular function is normal. The left ventricular ejection fraction is within the normal range. There is normal LV segmental wall motion. Transmitral Doppler flow pattern is abnormal. RIGHT VENTRICLE The right ventricle is normal size. ATRIA The left atrium size is normal. The right atrium size is normal. AORTIC VALVE The aortic valve is normal in structure. MITRAL VALVE The mitral valve is normal in structure. TRICUSPID VALVE There is mild tricuspid regurgitation. <Conclusion> Technically limited and difficult study. Normal LV systolic function. Diastolic dysfunction. Normal chamber size. Mild to moderate TR.
[2017-03-05] MEDS: cefTRIAXone IV 1 gm in Dextros 50 ML IVPB SCH (18:16)
--- NOTE | 2017-03-05 18:52 | CP.PCM.PN ---
Subjective - Date & Time of Evaluation Date of Evaluation: 03/05/17 Time of Evaluation: 13:40 - Subjective Subjective: clinically same Objective - Vital Signs/Intake and Output Vital Signs (last 24 hours): Temp Pulse Resp BP Pulse Ox 97.8 F 74 22 103/51 L 96 03/05/17 04:00 03/05/17 16:40 03/05/17 15:02 03/05/17 15:02 03/05/17 04:00 Intake and Output: 03/05/17 03/05/17 06:59 18:59 Intake Total 100 Output Total 550 Balance -450 - Medications Medications: Current Medications Acetaminophen (Tylenol 325mg Tab) 650 mg PO Q4 PRN PRN Reason: Pain, Mild (1-3) Albuterol/Ipratropium (Duoneb 3 Mg/0.5 Mg (3 Ml) Ud) 3 ml INH RQ4 [facility] Last Admin: 03/05/17 15:48 Dose: 3 ml Aspirin (Aspirin) 325 mg PO DAILY [facility] Last Admin: 03/05/17 09:20 Dose: 325 mg Clopidogrel Bisulfate (Plavix) 75 mg PO DAILY [facility] Last Admin: 03/05/17 09:20 Dose: 75 mg Enoxaparin Sodium (Lovenox) 60 mg SC DAILY [facility] Last Admin: 03/05/17 09:21 Dose: 60 mg Famotidine (Pepcid) 20 mg PO DAILY [facility] Last Admin: 03/05/17 09:20 Dose: 20 mg Famotidine (Pepcid) 20 mg PO DAILY [facility] Last Admin: 03/05/17 10:17 Dose: Not Given Ferrous Sulfate (Feosol) 325 mg PO DAILY [facility] Last Admin: 03/05/17 09:20 Dose: 325 mg Ceftriaxone Sodium (Rocephin Iv 1 Gm Duplex) 50 mls @ 100 mls/hr IVPB DAILY@ 1800 [facility] Last Admin: 03/05/17 18:16 Dose: 100 mls/hr Levothyroxine Sodium (Synthroid) 100 mcg PO DAILY@0630 [facility] Megestrol Acetate (Megace) 400 mg PO DAILY [facility] Last Admin: 03/05/17 09:21 Dose: 400 mg Tamsulosin HCl (Flomax) 0.4 mg PO DAILY [facility] Last Admin: 03/05/17 09:20 Dose: 0.4 mg - Labs Labs: 03/04/17 01:47 10/23/17 01:47 PT 12.4 SECONDS (9.7-12.2) H 03/04/17 01:47 INR 1.1 03/04/17 01:47 APTT 39 SECONDS (21-34) H 03/04/17 01:47 - Constitutional Appears: Well - Head Exam Head Exam: ATRAUMATIC, NORMAL INSPECTION, NORMOCEPHALIC - Eye Exam Eye Exam: EOMI, Normal appearance, PERRL Pupil Exam: NORMAL ACCOMODATION, PERRL - ENT Exam ENT Exam: Mucous Membranes Moist, Normal Exam - Neck Exam Neck Exam: Full ROM, Normal Inspection. absent: Lymphadenopathy - Respiratory Exam Respiratory Exam: Decreased Breath Sounds - Cardiovascular Exam Cardiovascular Exam: REGULAR RHYTHM, +S1, +S2 - GI/Abdominal Exam GI & Abdominal Exam: Soft, Diminished Bowel Sounds - Rectal Exam Rectal Exam: Deferred - Exam Exam: Circumcision, NORMAL INSPECTION External exam: NORMAL EXTERNAL EXAM Speculum exam: NORMAL SPECULUM EXAM Bimanual exam: NORMAL BIMANUAL EXAM - Extremities Exam Extremities Exam: Full ROM, Normal Capillary Refill, Normal Inspection. absent : Joint Swelling, Pedal Edema - Back Exam Back Exam: NORMAL INSPECTION - Neurological Exam Neurological Exam: Alert, Awake, CN II-XII Intact, Normal Gait, Oriented x3 - Psychiatric Exam Psychiatric exam: Normal Affect, Normal Mood - Skin Skin Exam: Dry, Intact, Normal Color, Warm Assessment and Plan (1) NOEMI (acute kidney injury) Status: Acute (2) Abdominal pain Status: Acute (3) Acute on chronic renal failure Status: Acute (4) Anemia Status: Acute (5) Anemia Status: Acute (6) Antral gastritis Status: Acute (7) Back pain Status: Acute (8) Chest pain Status: Acute (9) Chest pain Status: Acute (10) Coagulopathy Status: Acute (11) Coffee ground emesis Status: Acute (12) Colon cancer Status: Acute (13) Constipation Status: Acute (14) Contusion Status: Acute (15) Dehydration Status: Acute (16) Disorder of mediastinum Status: Acute (17) Dyspnea Status: Acute (18) Fall Status: Acute (19) GI bleed Status: Acute (20) Gastritis Status: Acute (21) Gastritis Status: Acute (22) Gouty arthritis Status: Acute (23) Heart failure Status: Acute (24) Hyperkalemia Status: Acute (25) Hypotension Status: Acute (26) Hypotension Status: Acute (27) Leukocytosis Status: Acute (28) Leukocytosis Status: Acute (29) Leukocytosis Status: Acute (30) Lung nodule < 6cm on CT Status: Acute (31) Mass of colon Status: Acute (32) Nausea Status: Acute (33) Pleural effusion Status: Acute (34) Pneumonia Status: Acute (35) Pneumonia Status: Acute (36) Pneumonia Status: Acute (37) Prophylactic measure Status: Acute (38) Rheumatoid arthritis Status: Acute (39) Severe dehydration Status: Acute (40) Skin tear of elbow without complication Status: Acute (41) Wedge compression fracture of T9 vertebra Status: Acute (42) Atrial fibrillation with rapid ventricular response Status: Chronic (43) COPD (chronic obstructive pulmonary disease) Status: Chronic (44) Hypertension Status: Chronic (45) Renal insufficiency Status: Chronic - Assessment and Plan (Free Text) Plan: Patient examined. Patient observed. Patient clinically better. EKG suggestive of LAD. 2D echo suggestive of only diastolic dysfunction and [id number] TR. Chest x-ray normal. CK-MB raised, troponin I negative, and natriuretic peptide significantly raised. Continue enoxaparin, aspirin, clopidogrel, supportive medications.
[2017-03-06] MEDS: Albuterol-Ipratrop 3 mg / 0.5 (3 ml) UD INH SCH ×7 (00:04→23:59)
[2017-03-06] MEDS: Levothyroxine 100 MCG TAB PO SCH (06:15)
[2017-03-06] MEDS: Megestrol Acetate 40 mg/ml Cup PO SCH (09:34)
[2017-03-06] MEDS: Enoxaparin 60 mg Syringe SC SCH (09:35)
[2017-03-06] MEDS: cefTRIAXone IV 1 gm in Dextros 50 ML IVPB SCH (17:21)
--- NOTE | 2017-03-06 20:17 | CP.PCM.PN ---
Subjective - Date & Time of Evaluation Date of Evaluation: 03/06/17 Time of Evaluation: 13:20 - Subjective Subjective: clinically same Objective - Vital Signs/Intake and Output Vital Signs (last 24 hours): Temp Pulse Resp BP Pulse Ox 98.8 F 97 H 19 94/51 L 98 03/06/17 20:00 03/06/17 20:00 03/06/17 20:00 03/06/17 20:00 03/06/17 20:00 Intake and Output: 03/06/17 03/07/17 18:59 06:59 Output Total 100 Balance -100 - Medications Medications: Current Medications Acetaminophen (Tylenol 325mg Tab) 650 mg PO Q4 PRN PRN Reason: Pain, Mild (1-3) Albuterol/Ipratropium (Duoneb 3 Mg/0.5 Mg (3 Ml) Ud) 3 ml INH RQ4 [facility] Last Admin: 03/06/17 19:14 Dose: 3 ml Aspirin (Aspirin) 325 mg PO DAILY [facility] Last Admin: 03/06/17 09:34 Dose: 325 mg Clopidogrel Bisulfate (Plavix) 75 mg PO DAILY [facility] Last Admin: 03/06/17 09:34 Dose: 75 mg Enoxaparin Sodium (Lovenox) 60 mg SC DAILY [facility] Last Admin: 03/06/17 09:35 Dose: 60 mg Famotidine (Pepcid) 20 mg PO DAILY [facility] Last Admin: 03/06/17 09:35 Dose: 20 mg Ferrous Sulfate (Feosol) 325 mg PO DAILY [facility] Last Admin: 03/06/17 09:35 Dose: 325 mg Ceftriaxone Sodium (Rocephin Iv 1 Gm Duplex) 50 mls @ 100 mls/hr IVPB DAILY@ 1800 [facility] Last Admin: 03/06/17 17:21 Dose: 100 mls/hr Levothyroxine Sodium (Synthroid) 100 mcg PO DAILY@0630 [facility] Last Admin: 03/06/17 06:15 Dose: 100 mcg Megestrol Acetate (Megace) 400 mg PO DAILY [facility] Last Admin: 03/06/17 09:34 Dose: 400 mg Tamsulosin HCl (Flomax) 0.4 mg PO DAILY [facility] Last Admin: 03/06/17 09:34 Dose: 0.4 mg - Labs Labs: 03/04/17 01:47 03/04/17 01:47 PT 12.4 SECONDS (9.7-12.2) H 03/04/17 01:47 INR 1.1 03/04/17 01:47 APTT 39 SECONDS (21-34) H 03/04/17 01:47 - Constitutional Appears: Well - Head Exam Head Exam: ATRAUMATIC, NORMAL INSPECTION, NORMOCEPHALIC - Eye Exam Eye Exam: EOMI, Normal appearance, PERRL Pupil Exam: NORMAL ACCOMODATION, PERRL - ENT Exam ENT Exam: Mucous Membranes Moist, Normal Exam - Neck Exam Neck Exam: Full ROM, Normal Inspection. absent: Lymphadenopathy - Respiratory Exam Respiratory Exam: Decreased Breath Sounds - Cardiovascular Exam Cardiovascular Exam: REGULAR RHYTHM, +S1, +S2 - GI/Abdominal Exam GI & Abdominal Exam: Soft, Diminished Bowel Sounds - Rectal Exam Rectal Exam: Deferred - Exam Exam: Circumcision, NORMAL INSPECTION External exam: NORMAL EXTERNAL EXAM Speculum exam: NORMAL SPECULUM EXAM Bimanual exam: NORMAL BIMANUAL EXAM - Extremities Exam Extremities Exam: Full ROM, Normal Capillary Refill, Normal Inspection. absent : Joint Swelling, Pedal Edema - Back Exam Back Exam: NORMAL INSPECTION - Neurological Exam Neurological Exam: Alert, Awake, CN II-XII Intact, Normal Gait, Oriented x3 - Psychiatric Exam Psychiatric exam: Normal Affect, Normal Mood - Skin Skin Exam: Dry, Intact, Normal Color, Warm Assessment and Plan (1) NOEMI (acute kidney injury) Status: Acute (2) Abdominal pain Status: Acute (3) Acute on chronic renal failure Status: Acute (4) Anemia Status: Acute (5) Anemia Status: Acute (6) Antral gastritis Status: Acute (7) Back pain Status: Acute (8) Chest pain Status: Acute (9) Chest pain Status: Acute (10) Coagulopathy Status: Acute (11) Coffee ground emesis Status: Acute (12) Colon cancer Status: Acute (13) Constipation Status: Acute (14) Contusion Status: Acute (15) Dehydration Status: Acute (16) Disorder of mediastinum Status: Acute (17) Dyspnea Status: Acute (18) Fall Status: Acute (19) GI bleed Status: Acute (20) Gastritis Status: Acute (21) Gastritis Status: Acute (22) Gouty arthritis Status: Acute (23) Heart failure Status: Acute (24) Hyperkalemia Status: Acute (25) Hypotension Status: Acute (26) Hypotension Status: Acute (27) Leukocytosis Status: Acute (28) Leukocytosis Status: Acute (29) Leukocytosis Status: Acute (30) Lung nodule < 6cm on CT Status: Acute (31) Mass of colon Status: Acute (32) Nausea Status: Acute (33) Pleural effusion Status: Acute (34) Pneumonia Status: Acute (35) Pneumonia Status: Acute (36) Pneumonia Status: Acute (37) Prophylactic measure Status: Acute (38) Rheumatoid arthritis Status: Acute (39) Severe dehydration Status: Acute (40) Skin tear of elbow without complication Status: Acute (41) Wedge compression fracture of T9 vertebra Status: Acute (42) Atrial fibrillation with rapid ventricular response Status: Chronic (43) COPD (chronic obstructive pulmonary disease) Status: Chronic (44) Hypertension Status: Chronic (45) Renal insufficiency Status: Chronic - Assessment and Plan (Free Text) Plan: Patient examined. Patient better. No chest pain. Continue aspirin, clopidogrel, enoxaparin, supportive medications.
[2017-03-07] MEDS: Albuterol-Ipratrop 3 mg / 0.5 (3 ml) UD INH SCH ×5 (03:48→19:55)
[2017-03-07] MEDS: Levothyroxine 100 MCG TAB PO SCH (06:00)
[2017-03-07] MEDS: Enoxaparin 60 mg Syringe SC SCH (09:19)
[2017-03-07] MEDS: Megestrol Acetate 40 mg/ml Cup PO SCH (09:20)
--- NOTE | 2017-03-07 13:41 | CP.PCM.PN ---
Subjective - Date & Time of Evaluation Date of Evaluation: 03/07/17 Time of Evaluation: 13:00 - Subjective Subjective: Seen at the ICU both on the and the . No shortness of breath, in sinus , on NOAG Objective - Vital Signs/Intake and Output Vital Signs (last 24 hours): Temp Pulse Resp BP Pulse Ox 98.4 F 89 20 141/76 100 03/07/17 12:00 03/07/17 10:20 03/07/17 10:20 03/07/17 08:12 03/07/17 10:20 Intake and Output: 03/07/17 03/07/17 06:59 18:59 Intake Total 240 Output Total 400 Balance -160 - Medications Medications: Current Medications Acetaminophen (Tylenol 325mg Tab) 650 mg PO Q4 PRN PRN Reason: Pain, Mild (1-3) Albuterol/Ipratropium (Duoneb 3 Mg/0.5 Mg (3 Ml) Ud) 3 ml INH RQ4 [facility] Last Admin: 03/07/17 11:21 Dose: 3 ml Aspirin (Aspirin) 325 mg PO DAILY [facility] Last Admin: 03/07/17 09:20 Dose: 325 mg Clopidogrel Bisulfate (Plavix) 75 mg PO DAILY [facility] Last Admin: 03/07/17 09:20 Dose: 75 mg Enoxaparin Sodium (Lovenox) 60 mg SC DAILY [facility] Last Admin: 03/07/17 09:19 Dose: 60 mg Famotidine (Pepcid) 20 mg PO DAILY [facility] Last Admin: 03/07/17 09:19 Dose: 20 mg Ferrous Sulfate (Feosol) 325 mg PO DAILY [facility] Last Admin: 03/07/17 09:20 Dose: 325 mg Ceftriaxone Sodium (Rocephin Iv 1 Gm Duplex) 50 mls @ 100 mls/hr IVPB DAILY@ 1800 [facility] Last Admin: 03/06/17 17:21 Dose: 100 mls/hr Levothyroxine Sodium (Synthroid) 100 mcg PO DAILY@0630 [facility] Last Admin: 03/07/17 06:00 Dose: 100 mcg Megestrol Acetate (Megace) 400 mg PO DAILY [facility] Last Admin: 03/07/17 09:20 Dose: 400 mg Tamsulosin HCl (Flomax) 0.4 mg PO DAILY [facility] Last Admin: 03/07/17 09:20 Dose: 0.4 mg - Labs Labs: 03/04/17 01:47 03/04/17 01:47 PT 12.4 SECONDS (9.7-12.2) H 03/04/17 01:47 INR 1.1 03/04/17 01:47 APTT 39 SECONDS (21-34) H 03/04/17 01:47 - Constitutional Appears: Non-toxic - Eye Exam Eye Exam: EOMI - ENT Exam ENT Exam: Mucous Membranes Moist - Neck Exam Neck Exam: absent: Lymphadenopathy, Thyromegaly - Respiratory Exam Respiratory Exam: Clear to Ausculation Bilateral. absent: Chest Wall Tenderness , Rales - Cardiovascular Exam Cardiovascular Exam: REGULAR RHYTHM, Murmur - GI/Abdominal Exam GI & Abdominal Exam: Normal Bowel Sounds. absent: Organomegaly - Rectal Exam Rectal Exam: Deferred - Extremities Exam Extremities Exam: Full ROM, Normal Capillary Refill. absent: Calf Tenderness - Neurological Exam Neurological Exam: Alert, Oriented x3 - Psychiatric Exam Psychiatric exam: Anxious - Skin Skin Exam: Dry Assessment and Plan (1) Heart failure Status: Acute (2) NOEMI (acute kidney injury) Status: Acute (3) Atrial fibrillation with rapid ventricular response Status: Chronic
[2017-03-07 16:10] VITALS: TEMP 96.5
[2017-03-07] MEDS: cefTRIAXone IV 1 gm in Dextros 50 ML IVPB SCH (17:12)
--- NOTE | 2017-03-07 18:37 | CP.PCM.PN ---
Subjective - Date & Time of Evaluation Date of Evaluation: 03/07/17 Time of Evaluation: 14:20 - Subjective Subjective: clinically same Objective - Vital Signs/Intake and Output Vital Signs (last 24 hours): Temp Pulse Resp BP Pulse Ox 96.5 F L 98 H 19 112/61 100 03/07/17 16:00 03/07/17 14:40 03/07/17 14:40 03/07/17 12:01 03/07/17 14:40 Intake and Output: 03/07/17 03/07/17 06:59 18:59 Intake Total 240 Output Total 400 Balance -160 - Medications Medications: Current Medications Acetaminophen (Tylenol 325mg Tab) 650 mg PO Q4 PRN PRN Reason: Pain, Mild (1-3) Albuterol/Ipratropium (Duoneb 3 Mg/0.5 Mg (3 Ml) Ud) 3 ml INH RQ4 [facility] Last Admin: 03/07/17 15:45 Dose: 3 ml Aspirin (Aspirin) 325 mg PO DAILY [facility] Last Admin: 03/07/17 09:20 Dose: 325 mg Clopidogrel Bisulfate (Plavix) 75 mg PO DAILY [facility] Last Admin: 03/07/17 09:20 Dose: 75 mg Enoxaparin Sodium (Lovenox) 60 mg SC DAILY [facility] Last Admin: 03/07/17 09:19 Dose: 60 mg Famotidine (Pepcid) 20 mg PO DAILY [facility] Last Admin: 03/07/17 09:19 Dose: 20 mg Ferrous Sulfate (Feosol) 325 mg PO DAILY [facility] Last Admin: 03/07/17 09:20 Dose: 325 mg Ceftriaxone Sodium (Rocephin Iv 1 Gm Duplex) 50 mls @ 100 mls/hr IVPB DAILY@ 1800 [facility] Last Admin: 03/07/17 17:12 Dose: 100 mls/hr Levothyroxine Sodium (Synthroid) 100 mcg PO DAILY@0630 [facility] Last Admin: 03/07/17 06:00 Dose: 100 mcg Megestrol Acetate (Megace) 400 mg PO DAILY [facility] Last Admin: 03/07/17 09:20 Dose: 400 mg Tamsulosin HCl (Flomax) 0.4 mg PO DAILY [facility] Last Admin: 03/07/17 09:20 Dose: 0.4 mg - Labs Labs: 03/04/17 01:47 03/04/17 01:47 PT 12.4 SECONDS (9.7-12.2) H 03/04/17 01:47 INR 1.1 03/04/17 01:47 APTT 39 SECONDS (21-34) H 03/04/17 01:47 - Constitutional Appears: Well - Head Exam Head Exam: ATRAUMATIC, NORMAL INSPECTION, NORMOCEPHALIC - Eye Exam Eye Exam: EOMI, Normal appearance, PERRL Pupil Exam: NORMAL ACCOMODATION, PERRL - ENT Exam ENT Exam: Mucous Membranes Moist, Normal Exam - Neck Exam Neck Exam: Full ROM, Normal Inspection. absent: Lymphadenopathy - Respiratory Exam Respiratory Exam: Clear to Ausculation Bilateral, NORMAL BREATHING PATTERN - Cardiovascular Exam Cardiovascular Exam: REGULAR RHYTHM, +S1, +S2. absent: Murmur - GI/Abdominal Exam GI & Abdominal Exam: Soft, Normal Bowel Sounds. absent: Tenderness - Rectal Exam Rectal Exam: NORMAL INSPECTION - Exam Exam: Circumcision, NORMAL INSPECTION External exam: NORMAL EXTERNAL EXAM Speculum exam: NORMAL SPECULUM EXAM Bimanual exam: NORMAL BIMANUAL EXAM - Extremities Exam Extremities Exam: Full ROM, Normal Capillary Refill, Normal Inspection. absent : Joint Swelling, Pedal Edema - Back Exam Back Exam: NORMAL INSPECTION - Neurological Exam Neurological Exam: Alert, Awake, CN II-XII Intact, Normal Gait, Oriented x3 - Psychiatric Exam Psychiatric exam: Normal Affect, Normal Mood - Skin Skin Exam: Dry, Intact, Normal Color, Warm Assessment and Plan (1) NOEMI (acute kidney injury) Status: Acute (2) Abdominal pain Status: Acute (3) Acute on chronic renal failure Status: Acute (4) Anemia Status: Acute (5) Anemia Status: Acute (6) Antral gastritis Status: Acute (7) Back pain Status: Acute (8) Chest pain Status: Acute (9) Chest pain Status: Acute (10) Coagulopathy Status: Acute (11) Coffee ground emesis Status: Acute (12) Colon cancer Status: Acute (13) Constipation Status: Acute (14) Contusion Status: Acute (15) Dehydration Status: Acute (16) Disorder of mediastinum Status: Acute (17) Dyspnea Status: Acute (18) Fall Status: Acute (19) GI bleed Status: Acute (20) Gastritis Status: Acute (21) Gastritis Status: Acute (22) Gouty arthritis Status: Acute (23) Heart failure Status: Acute (24) Hyperkalemia Status: Acute (25) Hypotension Status: Acute (26) Hypotension Status: Acute (27) Leukocytosis Status: Acute (28) Leukocytosis Status: Acute (29) Leukocytosis Status: Acute (30) Lung nodule < 6cm on CT Status: Acute (31) Mass of colon Status: Acute (32) Nausea Status: Acute (33) Pleural effusion Status: Acute (34) Pneumonia Status: Acute (35) Pneumonia Status: Acute (36) Pneumonia Status: Acute (37) Prophylactic measure Status: Acute (38) Rheumatoid arthritis Status: Acute (39) Severe dehydration Status: Acute (40) Skin tear of elbow without complication Status: Acute (41) Wedge compression fracture of T9 vertebra Status: Acute (42) Atrial fibrillation with rapid ventricular response Status: Chronic (43) COPD (chronic obstructive pulmonary disease) Status: Chronic (44) Hypertension Status: Chronic (45) Renal insufficiency Status: Chronic - Assessment and Plan (Free Text) Plan: Patient examined. Patient better. Continue aspirin, clopidogrel, enoxaparin and supportive medications.
[2017-03-07 19:40] VITALS: BP 108/55; PULSE 96; RESP 17; O2SAT 95
--- NOTE | 2017-03-08 17:05 | CARD ---
APPROVED REPORT EKG Measurement Heart [id number] <Conclusion> Normal sinus rhythm Left axis deviation Abnormal ECG
== END 2017-03-07 20:13 | disposition home or self-care (01) | DRG 308 ==
LOC: C.ER 01:28 → C.9I 02:29
PROVIDERS: ADMIT Internal Medicine Nephrology; ATTEND Internal Medicine Nephrology
DX: I48.91 Unspecified atrial fibrillation (principal); I50.43 Acute on chronic combined systolic (congestive) and diastolic (congestive) heart failure; N17.9 Acute kidney failure, unspecified; I13.0 Hypertensive heart and chronic kidney disease with heart failure and stage 1 through stage 4 chronic kidney disease, or unspecified chronic kidney disease; E11.22 Type 2 diabetes mellitus with diabetic chronic kidney disease; E86.0 Dehydration; J43.9 Emphysema, unspecified; D64.9 Anemia, unspecified; J44.9 Chronic obstructive pulmonary disease, unspecified; E03.9 Hypothyroidism, unspecified; Z96.642 Presence of left artificial hip joint; N18.9 Chronic kidney disease, unspecified; M16.12 Unilateral primary osteoarthritis, left hip; M81.0 Age-related osteoporosis without current pathological fracture; Z87.01 Personal history of pneumonia (recurrent); Z87.891 Personal history of nicotine dependence; Z90.49 Acquired absence of other specified parts of digestive tract; Z85.038 Personal history of other malignant neoplasm of large intestine

== ENCOUNTER 2017-06-13 10:48 | Inpatient (IN) | payer MEDICARE, MEDICAID ==
[2017-06-13 10:49] VITALS: PULSE 80; BMI 19.5
--- NOTE | 2017-06-13 10:55 | C.PDOC ---
History Of Present Illness 87 Y/O MALE PRESENTS TO ED FOR EVALUATION OF RECUR INTERMITTENT CP ONSET LAST NIGHT.PATIENT REPORTS NOW MID CHEST AND LOWER ABD PAIN. PATIENT DENIES SOB, FEVER. NVD PMHCHF, COPD, anemia, HTN, hypothyroidism and atrial fibrillation EXAM MILD DIST NONTOXIC LUNGS B/L EXP WHEEZE SLIGHT DIMINISHED NO RALES CV RRR NO EDEMA ABD NEG REMAINDE RNEG Time Seen by Provider: 06/13/17 10:53 Chief Complaint (Nursing): Chest Pain History Per: Patient History/Exam Limitations: no limitations Onset/Duration Of Symptoms: Days Current Symptoms Are (Timing): Still Present Past Medical History Vital Signs: Last Vital Signs Temp 98.4 F 06/13/17 11:05 Pulse 95 H 06/13/17 12:22 Resp 18 06/13/17 12:22 BP 129/61 06/13/17 12:22 Pulse Ox 99 06/13/17 12:22 - Medical History PMH: Anemia, Arthritis (L HIP SURG), Atrial Fibrillation, Bronchitis, CHF, COPD , Emphysema, Gastritis, HTN, Hypothyroidism, Osteoporosis, Pneumonia Surgical History: No Surg Hx - [facility] Procedures BONE MARROW BIOPSY (10/20/03) CLOSED ENDOSCOPIC BIOPSY OF LARGE INTESTINE (05/02/14) COLONOSCOPY (10/20/03) ESOPHAGOGASTRODUODENOSCOPY [EGD] W/CLOSED BIOPSY (10/20/03) EXCISION OF ASCENDING COLON, ENDO, DIAGN (06/09/16) EXCISION OF LEFT UPPER LUNG LOBE, PERC APPROACH, DIAGN (06/09/16) EXCISION OF SIGMOID COLON, ENDO, DIAGN (06/09/16) EXCISION OF STOMACH, ENDO, DIAGN (06/09/16) INJECT STEROID (10/20/03) INJECTION INTO JOINT (10/20/03) INSERTION OF INFUSION DEV INTO SUP VENA CAVA, PERC APPROACH (09/12/16) INSPECTION OF UPPER INTESTINAL TRACT, ENDO (05/27/16) INTRODUCTION OF NUTRITIONAL INTO PERIPH ART, PERC APPROACH (06/09/16) PACKED CELL TRANSFUSION (10/20/03) RESECTION OF APPENDIX, OPEN APPROACH (06/09/16) RESECTION OF SIGMOID COLON, OPEN APPROACH (06/09/16) TRANSFUSE NONAUT RED BLOOD CELLS IN PERIPH VEIN, PERC (11/10/16) VACCINATION NEC (05/02/14) Family History: States: Diabetes - Social History Hx Tobacco Use: No (quit 15 yrs ago, was a heavy smoker) Hx Alcohol Use: No Hx Substance Use: No - Immunization History Hx Tetanus Toxoid Vaccination: No Hx Influenza Vaccination: No Hx Pneumococcal Vaccination: No Review Of Systems Constitutional: Negative for: Fever, Chills Cardiovascular: Positive for: Chest Pain Respiratory: Negative for: Shortness of Breath Gastrointestinal: Positive for: Abdominal Pain. Negative for: Nausea, Vomiting Skin: Negative for: Rash Physical Exam - Physical Exam Appears: Non-toxic, Other (Mild distress) Skin: Warm, Dry, No Rash Head: Atraumatic, Normacephalic Oral Mucosa: Moist Neck: Normal ROM, Supple Cardiovascular: Rhythm Regular Respiratory: No Rales, No Rhonchi, Wheezing (B/L expiratory), Other (slight diminished breath sounds) Gastrointestinal/Abdominal: Soft, No Tenderness, No Guarding, No Rebound Back: No CVA Tenderness Extremity: Normal ROM, Capillary Refill (<2 seconds) Neurological/Psych: Oriented x3 ED Course And Treatment - Laboratory Results Result Diagrams: 06/13/17 11:39 06/13/17 12:22 ECG: Interpreted By Me ECG Rhythm: Sinus Rhythm ECG Interpretation: Abnormal Interpretation Of ECG: TWI II,III, AVF, V5-6 COMPARED TO 03/04/17 Rate From EC (bpm) Progress - Re-Evaluation Re-evaluation Note: 06/13/17 11:32 ADVISED BY RN PT Syeda SHINE. PT DENIES PRIOR HO GI BLEED OR RECENT LOWER GI BLEEDING. EXAM NO SIG CHANGE PRIOR. 141/69 HR 95 O2 98%. GI MEDS, IVF SUPPORT, CONSIDER BLOOD PRODUCT 06/13/17 13:17 D/W DR Jayson DOAN: STATES IS HIS PMD BUT IS NOT AVAILABLE FOR ADMISSION. ADMIT TO DR DANIELS 06/13/17 13:22 NO RECUR GI BLEED. VSS APPEARS COMFORTABLE. D/W DR DANIELS, AWARE OF ER FINDINGS. ADMIT TO Jayson DOAN BUT WILL EVAL PT - Data Reviewed Data Reviewed: Lab, Diagnostic imaging, EKG, Old records - Critical Care Citical Care: Excluding Proc Time Critical Care Time: 120 minutes - Continuity of Care Discussed patient case with:: Patient, PMD Medical Decision Making Medical Decision Making: Plan: ecg, cxr ordered. Pepcid, Tylenol, Nitrogylcerin, Protonix administered Disposition Counseled Patient/Family Regarding: Studies Performed, Diagnosis - Disposition Disposition: HOSPITALIZED Disposition Time: 13:22 Condition: STABLE Forms: [facility] (Estonian) - POA Present On Arrival: None - Clinical Impression Clinical Impression: GI bleed, Acute CHF, Chest pain - Scribe Statement The provider has reviewed the documentation as recorded by the Chelseyibelan Farfan All medical record entries made by the Scribe were at my direction and personally dictated by me. I have reviewed the chart and agree that the record accurately reflects my personal performance of the history, physical exam, medical decision making, and the department course for this patient. I have also personally directed, reviewed, and agree with the discharge instructions and disposition. Decision To Admit - Pt Status Changed To: Hospital Disposition Of: Inpatient - Admit Certification Admit to Inpatient:: After my assessment, the patient will require hospitalization for at least two midnights. This is because of the severity of symptoms shown, intensity of services needed, and/or the medical risk in this patient being treated as an outpatient. - InPatient: Physician Admission Certification: I certify that this patient requires 2 or more midnights of care for the following reason:: SEE NOTE - . Bed Request Type: Telemetry Admitting Physician: Angelica Doan Patient Diagnosis: GI bleed, Acute CHF, Chest pain
[2017-06-13] MEDS ORDERED: Aspirin 325 mg EC Tablets PO STA (11:20)
[2017-06-13 11:45] LABS: BASO # 0.2 K/uL (0.0-0.2); BASO % 1.4 % (0.0-2.0); EOS # 1.1 K/uL (0.0-0.7); HEMOGLOBIN 10.2 g/dL (12.0-18.0); LYMPH # 1.6 K/uL (1.0-4.3); MEAN CELL VOLUME 82.5 fL (80.0-94.0); MEAN CORPUSCULAR HEMOGLOBIN 26.5 pg (27.0-31.0); MEAN CORPUSCULAR HGB CONC 32.1 g/dL (33.0-37.0); MEAN PLATELET VOLUME 7.7 fL (7.2-11.7); MONO # 1.1 K/uL (0.0-0.8); MONO % 8.5 % (0.0-10.0); NEUT # 8.5 K/uL (1.8-7.0); NEUT % 68.1 % (50.0-75.0); RBC 3.84 Mil/uL (4.40-5.90); RED CELL DISTRIBUTION WIDTH 15.9 % (11.5-14.5); WHITE BLOOD COUNT 12.4 K/uL (4.8-10.8)
[2017-06-13 12:26] LABS: INR 1.5; PROTHROMBIN TIME 16.8 SECONDS (9.7-12.2)
[2017-06-13 12:43] LABS: ALB/GLOB RATIO 1.1 (1.0-2.1); ALBUMIN 2.9 g/dL (3.5-5.0); CALCIUM 8.1 mg/dl (8.6-10.4)
[2017-06-13 12:53] LABS: TROPONIN I 0.061 ng/mL (0.00-0.120)
--- NOTE | 2017-06-13 12:55 | RAD ---
PROCEDURE: CHEST RADIOGRAPH, 1 VIEW HISTORY: chest pain COMPARISON: 03/04/2017 FINDINGS: LUNGS: No consolidation. The overall interstitial markings appear diffusely and mildly increased yet similar appearing PLEURA: No pneumothorax or pleural fluid seen. CARDIOVASCULAR: Probable top-normal heart size. OSSEOUS STRUCTURES: Bilateral shoulder arthrosis old healed lateral right mid lung zone rib fracture deformity. VISUALIZED UPPER ABDOMEN: Normal. OTHER FINDINGS: None. IMPRESSION: No interval cardiopulmonary pathology noted. Probable background interstitial lung disease -similar-appearing
[2017-06-13] MEDS ORDERED: Promethazine DM 12.5 mg-30 mg/10 ml Syrup PO PRN (17:31)
[2017-06-13] MEDS: MethylPREDNISolone 40 mg Vial IVP SCH (18:08)
[2017-06-13] MEDS ORDERED: Phytonadione 10 mg/ml Inj (Adult) IV STA (18:27)
[2017-06-13] MEDS ORDERED: Phytonadione 10 mg/ml Inj (Adult) SC STA (18:27)
--- NOTE | 2017-06-13 18:42 | CP.PCM.HP ---
Past Patient History - Infectious Disease Hx of Infectious Diseases: None - Past Medical History & Family History Past Medical History?: Yes - Past Social History Smoking Status: Former Smoker - CARDIAC Hx Atrial Fibrillation: Yes Hx Congestive Heart Failure: Yes Hx Hypertension: Yes - PULMONARY Hx Bronchitis: Yes Hx Chronic Obstructive Pulmonary Disease (COPD): Yes Hx Emphysema: Yes Hx Pneumonia: Yes - NEUROLOGICAL Hx Neurological Disorder: No - HEENT Hx HEENT Problems: Yes Hx Cataracts: Yes - RENAL Hx Chronic Kidney Disease: No - ENDOCRINE/METABOLIC Hx Hypothyroidism: Yes - HEMATOLOGICAL/ONCOLOGICAL Hx Anemia: Yes - INTEGUMENTARY Hx Dermatological Problems: No - MUSCULOSKELETAL/RHEUMATOLOGICAL Hx Arthritis: Yes (L HIP SURG) Hx Falls: No Hx Osteoporosis: Yes - GASTROINTESTINAL Hx Gastritis: Yes - GENITOURINARY/GYNECOLOGICAL Hx Sexually Transmitted Disorders: No - PSYCHIATRIC Hx Substance Use: No - SURGICAL HISTORY Hx Surgeries: Yes Hx Joint Replacement: Yes (left hip replacement) Hx Orthopedic Surgery: Yes (hip surgery) Other/Comment: colon resection 06/2016 - ANESTHESIA Hx Anesthesia: Yes Hx Anesthesia Reactions: No Hx Malignant Hyperthermia: No Meds Allergies/Adverse Reactions: Allergies Allergy/AdvReac Type Severity Reaction Status Date / Time No Known Allergies Allergy Verified 06/13/17 11:05 Results - Vital Signs Recent Vital Signs: Last Vital Signs Temp 97.8 F 06/13/17 16:20 Pulse 96 H 06/13/17 16:37 Resp 18 06/13/17 16:20 BP 122/63 06/13/17 16:20 Pulse Ox 98 06/13/17 16:20 - Labs Result Diagrams: 06/13/17 11:39 06/13/17 12:22 Labs: Laboratory Results - last 24 hr 06/13/17 06/13/17 06/13/17 11:39 11:39 12:22 WBC 12.4 H RBC 3.84 L Hgb 10.2 L Hct 31.6 L MCV 82.5 MCH 26.5 L MCHC 32.1 L RDW 15.9 H Plt Count 327 MPV 7.7 Neut % (Auto) 68.1 Lymph % (Auto) 13.0 L Boyd % (Auto) 8.5 Eos % (Auto) 9.0 H Baso % (Auto) 1.4 Neut # (Auto) 8.5 H Lymph # (Auto) 1.6 Boyd # (Auto) 1.1 H Eos # (Auto) 1.1 H Baso # (Auto) 0.2 PT 16.8 H INR 1.5 APTT 32 Sodium 136 Potassium 5.2 Chloride 112 H Carbon Dioxide 18 L Anion Gap 11 BUN 44 H Creatinine 1.8 H Est GFR ( Amer) 44 Est GFR (Non-Af Amer) 36 Random Glucose 95 Calcium 8.1 L Total Bilirubin 0.2 AST 8 L D ALT 13 L D Alkaline Phosphatase 54 Troponin I 0.0610 NT-Pro-B Natriuret Pep 53919 H Total Protein 5.6 L Albumin 2.9 L D Globulin 2.7 Albumin/Globulin Ratio 1.1 Lipase 58 Blood Type Antibody Screen 06/13/17 12:22 WBC RBC Hgb Hct MCV MCH MCHC RDW Plt Count MPV Neut % (Auto) Lymph % (Auto) Boyd % (Auto) Eos % (Auto) Baso % (Auto) Neut # (Auto) Lymph # (Auto) Boyd # (Auto) Eos # (Auto) Baso # (Auto) PT INR APTT Sodium Potassium Chloride Carbon Dioxide Anion Gap BUN Creatinine Est GFR ( Amer) Est GFR (Non-Af Amer) Random Glucose Calcium Total Bilirubin AST ALT Alkaline Phosphatase Troponin I NT-Pro-B Natriuret Pep Total Protein Albumin Globulin Albumin/Globulin Ratio Lipase Blood Type A POSITIVE Antibody Screen Negative
[2017-06-13 20:15] LABS: CK-MB 4.35 ng/mL (0.0-3.38); TROPONIN I 0.057 ng/mL (0.00-0.120)
[2017-06-13] MEDS: Fluticasone-Salmeterol 250-50mcg Diskus INH SCH (20:15)
[2017-06-13] MEDS: Albuterol-Ipratrop 3 mg / 0.5 (3 ml) UD INH PRN (20:16)
[2017-06-14 00:58] LABS: CK-MB 3.83 ng/mL (0.0-3.38); TROPONIN I 0.047 ng/mL (0.00-0.120)
[2017-06-14] MEDS: MethylPREDNISolone 40 mg Vial IVP SCH ×3 (01:34→17:52)
[2017-06-14] MEDS: Levothyroxine 100 MCG TAB PO SCH (06:02)
[2017-06-14 06:31] LABS: EOS % 0.1 % (0.0-4.0); HEMOGLOBIN 9.6 g/dL (12.0-18.0); LYMPH # 0.4 K/uL (1.0-4.3); LYMPH % 8.5 % (20.0-40.0); MEAN CELL VOLUME 82.8 fL (80.0-94.0); MEAN CORPUSCULAR HEMOGLOBIN 27.1 pg (27.0-31.0); MEAN CORPUSCULAR HGB CONC 32.7 g/dL (33.0-37.0); MEAN PLATELET VOLUME 7.8 fL (7.2-11.7); MONO % 0.3 % (0.0-10.0); NEUT # 4.4 K/uL (1.8-7.0); NEUT % 90.1 % (50.0-75.0); PLATELET COUNT 263 K/uL (130-400); RBC 3.55 Mil/uL (4.40-5.90); RED CELL DISTRIBUTION WIDTH 15.6 % (11.5-14.5); WHITE BLOOD COUNT 4.8 K/uL (4.8-10.8)
[2017-06-14 06:39] LABS: INR 1.3; PROTHROMBIN TIME 14.5 SECONDS (9.7-12.2)
[2017-06-14] MEDS: Fluticasone-Salmeterol 250-50mcg Diskus INH SCH ×2 (07:41→19:07)
[2017-06-14] MEDS ORDERED: Phytonadione 10 mg/ml Inj (Adult) SC SCH (08:00)
[2017-06-14] MEDS: Albuterol-Ipratrop 3 mg / 0.5 (3 ml) UD INH PRN (08:45)
[2017-06-14] MEDS: Megestrol Acetate 40 mg/ml Cup PO SCH (09:42)
[2017-06-14 09:54] LABS: ANISOCYTOSIS SLIGHT; HYPOCHROMIC SLIGHT; LYMPHOCYTE 6 % (20-40); NEUTROPHIL 94 % (50-75); PLATELET ESTIMATE NORMAL (NORMAL); POIKILOCYTOSIS SLIGHT; TOTAL CELLS COUNTED 100
[2017-06-14 09:55] LABS: BURR CELLS SLIGHT; TEARDROP CELLS SLIGHT
[2017-06-14] MEDS ORDERED: Propofol 10 mg/ml Inj (20 ML) ONE (11:43)
[2017-06-14] MEDS ORDERED: Lidocaine Hydrochloride 5 ML INJ ONE (11:44)
[2017-06-14] MEDS ORDERED: Lactated Ringer's 1,000 ML IV SCH (12:15)
[2017-06-14] MEDS: Sucralfate 1 gm/10 ml Oral Susp UD PO SCH ×3 (13:49→21:06)
[2017-06-14] MEDS: Albuterol-Ipratrop 3 mg / 0.5 (3 ml) UD INH SCH ×2 (14:07→19:07)
--- NOTE | 2017-06-14 15:36 | CP.PCM.PN ---
Subjective - Date & Time of Evaluation Date of Evaluation: 06/14/17 Time of Evaluation: 15:36 Objective - Vital Signs/Intake and Output Vital Signs (last 24 hours): Temp Pulse Resp BP Pulse Ox 98.9 F 86 24 113/86 100 06/14/17 11:59 06/14/17 12:29 06/14/17 12:29 06/14/17 12:29 06/14/17 12:29 Intake and Output: 06/14/17 06/14/17 06:59 18:59 Intake Total 100 Balance 100 - Medications Medications: Current Medications Albuterol/Ipratropium (Duoneb 3 Mg/0.5 Mg (3 Ml) Ud) 3 ml INH RQ6 [facility] Last Admin: 06/14/17 14:07 Dose: Not Given Carvedilol (Coreg) 3.125 mg PO BID [facility] Last Admin: 06/14/17 09:42 Dose: 3.125 mg Donepezil HCl (Aricept) 10 mg PO HS [facility] Last Admin: 06/13/17 21:29 Dose: 10 mg Ferrous Sulfate (Feosol) 325 mg PO DAILY [facility] Last Admin: 06/14/17 09:39 Dose: 325 mg Folic Acid (Folic Acid) 1 mg PO DAILY [facility] Last Admin: 06/14/17 09:42 Dose: 1 mg Furosemide (Lasix) 40 mg PO DAILY [facility] Last Admin: 06/14/17 09:42 Dose: 40 mg Lactated Ringer's (Lactated Ringer's) 1,000 mls @ 10 mls/hr IV .Q24H [facility] Levothyroxine Sodium (Synthroid) 100 mcg PO DAILY@0630 [facility] Last Admin: 06/14/17 06:02 Dose: 100 mcg Megestrol Acetate (Megace) 400 mg PO DAILY [facility] Last Admin: 06/14/17 09:42 Dose: 400 mg Methylprednisolone (Solu-Medrol) 40 mg IVP Q8H [facility] Last Admin: 06/14/17 09:39 Dose: 40 mg Pantoprazole Sodium (Protonix Inj) 40 mg IVP Q12H [facility] Last Admin: 06/14/17 06:15 Dose: 40 mg Phytonadione (Vitamin K Inj) 10 mg SC ONCE [facility] Promethazine HCl/Dextromethorphan (Phenergan Dm Syrup) 15 ml PO Q6H PRN PRN Reason: Cough Fluticasone/Salmeterol (Advair Diskus 250/50) 1 puff INH RQ12 [facility] Last Admin: 06/14/17 07:41 Dose: 1 puff Sucralfate (Carafate Oral Susp) 1 gm PO QID [facility] Last Admin: 06/14/17 13:49 Dose: 1 gm Tamsulosin HCl (Flomax) 0.4 mg PO DAILY [facility] Last Admin: 06/14/17 09:39 Dose: 0.4 mg - Labs Labs: 06/14/17 06:23 06/13/17 12:22 PT 14.5 SECONDS (9.7-12.2) H 06/14/17 06:23 INR 1.3 06/14/17 06:23 APTT 29 SECONDS (21-34) 06/14/17 06:23
--- NOTE | 2017-06-14 19:20 | CARD ---
APPROVED REPORT EKG Measurement Heart [id number] [place] 130P57 [id number] <Conclusion> Normal sinus rhythm Left anterior fascicular block Inferior infarct, age undetermined Abnormal ECG
--- NOTE | 2017-06-14 19:20 | CARD ---
APPROVED REPORT EKG Measurement Heart [id number] [place] 128P44 [id number] <Conclusion> Normal sinus rhythm Left anterior fascicular block Inferior infarct, age undetermined Abnormal ECG
--- NOTE | 2017-06-14 19:21 | CARD ---
APPROVED REPORT EKG Measurement Heart [id number] [place] 130P58 [id number] <Conclusion> Normal sinus rhythm Left anterior fascicular block Inferior infarct, age undetermined T wave abnormality, consider lateral ischemia Abnormal ECG
[2017-06-15] MEDS: Albuterol-Ipratrop 3 mg / 0.5 (3 ml) UD INH SCH ×4 (01:44→19:33)
[2017-06-15] MEDS: MethylPREDNISolone 40 mg Vial IVP SCH ×3 (02:08→17:26)
[2017-06-15] MEDS: Levothyroxine 100 MCG TAB PO SCH (06:09)
[2017-06-15] MEDS: Fluticasone-Salmeterol 250-50mcg Diskus INH SCH ×2 (07:51→19:33)
[2017-06-15] MEDS: Megestrol Acetate 40 mg/ml Cup PO SCH (10:10)
[2017-06-15] MEDS: Sucralfate 1 gm/10 ml Oral Susp UD PO SCH ×4 (10:14→21:09)
--- NOTE | 2017-06-15 17:16 | PN ---
DATE: LOCATION: [facility], bed A. SUBJECTIVE: This is an 87-year-old male, post upper endoscopy, seen and examined in rounds, appeared to be somewhat more awake, alert, oriented without reported active bleeding, post upper endoscopy with biopsy yesterday. Biopsy results still pending. The entire chart is reviewed including, but not limited to, the most recent lab and radiology study results, current and the previous medication list, current and the previous medical events, and today's lab is still pending. However, the patient's CEA level was reported to be elevated to 3.2 with mildly increased PT at 14.5. PHYSICAL EXAMINATION: GENERAL: An 87-year-old male tolerated oral intake with assistance, afebrile without reported chest pain, significant shortness of breath, palpitations, chills, or fever. VITAL SIGNS: With pulse of 76, respiratory rate 20-22, blood pressure 150/76. HEENT: Showed mildly pale, dry oral mucoid membrane, anicteric sclerae. LUNGS: With scattered crepitation, decreased air entry at bases. HEART: Positive S1 and S2. ABDOMEN: Soft. Bowel sounds are present with mild generalized tenderness. No mass or organomegaly. No rebound tenderness or guarding. EXTREMITIES: With mild lower extremity edematous changes. No clubbing or cyanosis. NEUROLOGICAL: No reported new neurological deficits, sensory or motor. IMPRESSION: 1. The patient with peptic ulcer disease. 2. Recent history of hematemesis with coffee-ground material, none recently. 3. Known history of, but not limited to, chronic obstructive pulmonary disease, hypertension, congestive heart failure, atrial fibrillation, hypothyroidism, osteoporosis with osteoarthritis, and left hip surgery before. 4. Anemia most likely secondary to above. SUGGESTIONS: 1. Agree with your plan. 2. Follow up H and H as well as the rest of cancer markers. 3. If the patient has subsequent drop of hemoglobin and the hematocrit, then colonoscopy might be scheduled due to the elevated CEA level. Further recommendation to follow. Zarina Maddox MD
--- NOTE | 2017-06-15 17:46 | CP.PCM.PN ---
Subjective - Date & Time of Evaluation Date of Evaluation: 06/15/17 Time of Evaluation: 17:45 Objective - Vital Signs/Intake and Output Vital Signs (last 24 hours): Temp Pulse Resp BP Pulse Ox 97.9 F 75 18 129/65 99 06/15/17 16:00 06/15/17 16:00 06/15/17 16:00 06/15/17 16:00 06/15/17 16:00 Intake and Output: 06/15/17 06/15/17 06:59 18:59 Intake Total 400 Output Total 900 Balance -900 400 - Medications Medications: Current Medications Albuterol/Ipratropium (Duoneb 3 Mg/0.5 Mg (3 Ml) Ud) 3 ml INH RQ6 [facility] Last Admin: 06/15/17 13:28 Dose: 3 ml Carvedilol (Coreg) 3.125 mg PO BID [facility] Last Admin: 06/15/17 17:26 Dose: 3.125 mg Donepezil HCl (Aricept) 10 mg PO HS [facility] Last Admin: 06/14/17 21:06 Dose: 10 mg Ferrous Sulfate (Feosol) 325 mg PO DAILY [facility] Last Admin: 06/15/17 10:10 Dose: 325 mg Folic Acid (Folic Acid) 1 mg PO DAILY [facility] Last Admin: 06/15/17 10:11 Dose: 1 mg Furosemide (Lasix) 40 mg PO DAILY [facility] Last Admin: 06/15/17 10:17 Dose: 40 mg Lactated Ringer's (Lactated Ringer's) 1,000 mls @ 10 mls/hr IV .Q24H [facility] Levothyroxine Sodium (Synthroid) 100 mcg PO DAILY@0630 [facility] Last Admin: 06/15/17 06:09 Dose: 100 mcg Megestrol Acetate (Megace) 400 mg PO DAILY [facility] Last Admin: 06/15/17 10:10 Dose: 400 mg Methylprednisolone (Solu-Medrol) 40 mg IVP Q8H [facility] Last Admin: 06/15/17 17:26 Dose: 40 mg Pantoprazole Sodium (Protonix Inj) 40 mg IVP Q12H [facility] Last Admin: 06/15/17 05:10 Dose: 40 mg Phytonadione (Vitamin K Inj) 10 mg SC ONCE [facility] Promethazine HCl/Dextromethorphan (Phenergan Dm Syrup) 15 ml PO Q6H PRN PRN Reason: Cough Fluticasone/Salmeterol (Advair Diskus 250/50) 1 puff INH RQ12 [facility] Last Admin: 06/15/17 07:51 Dose: 1 puff Sucralfate (Carafate Oral Susp) 1 gm PO QID [facility] Last Admin: 06/15/17 17:26 Dose: 1 gm Tamsulosin HCl (Flomax) 0.4 mg PO DAILY [facility] Last Admin: 06/15/17 10:14 Dose: 0.4 mg - Labs Labs: 06/14/17 06:23 06/13/17 12:22 PT 14.5 SECONDS (9.7-12.2) H 06/14/17 06:23 INR 1.3 06/14/17 06:23 APTT 29 SECONDS (21-34) 06/14/17 06:23
[2017-06-16] MEDS: MethylPREDNISolone 40 mg Vial IVP SCH ×3 (01:54→17:28)
[2017-06-16] MEDS: Albuterol-Ipratrop 3 mg / 0.5 (3 ml) UD INH SCH ×4 (01:59→20:07)
[2017-06-16] MEDS: Levothyroxine 100 MCG TAB PO SCH (05:40)
[2017-06-16] MEDS: Fluticasone-Salmeterol 250-50mcg Diskus INH SCH ×2 (08:55→20:07)
[2017-06-16] MEDS: Sucralfate 1 gm/10 ml Oral Susp UD PO SCH ×4 (10:24→21:22)
[2017-06-16] MEDS: Megestrol Acetate 40 mg/ml Cup PO SCH (10:25)
--- NOTE | 2017-06-16 12:46 | PN ---
DATE: LOCATION: [facility], bed A. SUBJECTIVE: This is an 87-year-old male seen and examined in rounds without significant clinical changes or reported active bleeding. No reported chest pain or palpitation. The entire chart is reviewed including, but not limited to, the most recent lab and radiology study results, current and the previous medication list, current and the previous medical events. Today's lab is still pending. Hence the patient CEA level was reported to be elevated to 3.2 before. PHYSICAL EXAMINATION: GENERAL: An 87-year-old male. VITAL SIGNS: Afebrile, pulse of 74, respiratory rate 20 to 22, blood pressure is 116/66. HEENT: Showed mildly pale, dry oral mucoid membrane. ABDOMEN: No rebound tenderness. Bowel sounds are present. EXTREMITIES: Without significant clubbing, cyanosis or edema. NEUROLOGIC: No reported new neurological deficits, sensory or motor. IMPRESSION: 1. Recent history of hematemesis, none since admission. 2. Peptic ulcer disease. 3. Known history of chronic obstructive pulmonary disease, congestive heart failure, hypertension, atrial fibrillation. 4. History of hypothyroidism, osteoporosis with osteoarthritis and left hip surgery before. 5. Anemia most likely secondary to above. 6. Elevated CEA level to rule out occult lower gastrointestinal tract malignancy. SUGGESTION: 1. Agree with your plan. 2. Follow up H and H, if there is significant drop of hemoglobin and hematocrit then colonoscopy to be scheduled after adequate preparation. Zarina Maddox MD
--- NOTE | 2017-06-16 14:20 | CP.PCM.PN ---
Subjective - Date & Time of Evaluation Date of Evaluation: 06/16/17 Time of Evaluation: 14:20 Objective - Vital Signs/Intake and Output Vital Signs (last 24 hours): Temp Pulse Resp BP Pulse Ox 98.2 F 77 20 123/62 99 06/15/17 23:35 06/16/17 08:43 06/15/17 23:35 06/16/17 10:24 06/15/17 23:35 - Medications Medications: Current Medications Albuterol/Ipratropium (Duoneb 3 Mg/0.5 Mg (3 Ml) Ud) 3 ml INH RQ6 [facility] Last Admin: 06/16/17 13:40 Dose: 3 ml Carvedilol (Coreg) 3.125 mg PO BID [facility] Last Admin: 06/16/17 10:25 Dose: 3.125 mg Donepezil HCl (Aricept) 10 mg PO HS [facility] Last Admin: 06/15/17 21:09 Dose: 10 mg Ferrous Sulfate (Feosol) 325 mg PO DAILY [facility] Last Admin: 06/16/17 10:25 Dose: 325 mg Folic Acid (Folic Acid) 1 mg PO DAILY [facility] Last Admin: 06/16/17 10:24 Dose: 1 mg Furosemide (Lasix) 40 mg PO DAILY [facility] Last Admin: 06/16/17 10:24 Dose: 40 mg Lactated Ringer's (Lactated Ringer's) 1,000 mls @ 10 mls/hr IV .Q24H [facility] Levothyroxine Sodium (Synthroid) 100 mcg PO DAILY@0630 [facility] Last Admin: 06/15/17 06:09 Dose: 100 mcg Megestrol Acetate (Megace) 400 mg PO DAILY [facility] Last Admin: 06/16/17 10:25 Dose: 400 mg Methylprednisolone (Solu-Medrol) 40 mg IVP Q8H [facility] Last Admin: 06/16/17 10:24 Dose: 40 mg Pantoprazole Sodium (Protonix Inj) 40 mg IVP Q12H [facility] Last Admin: 06/16/17 05:28 Dose: 40 mg Phytonadione (Vitamin K Inj) 10 mg SC ONCE [facility] Promethazine HCl/Dextromethorphan (Phenergan Dm Syrup) 15 ml PO Q6H PRN PRN Reason: Cough Fluticasone/Salmeterol (Advair Diskus 250/50) 1 puff INH RQ12 [facility] Last Admin: 06/16/17 08:55 Dose: 1 puff Sucralfate (Carafate Oral Susp) 1 gm PO QID [facility] Last Admin: 06/16/17 13:22 Dose: 1 gm Tamsulosin HCl (Flomax) 0.4 mg PO DAILY [facility] Last Admin: 06/16/17 10:25 Dose: 0.4 mg - Labs Labs: 06/14/17 06:23 06/13/17 12:22 PT 14.5 SECONDS (9.7-12.2) H 06/14/17 06:23 INR 1.3 06/14/17 06:23 APTT 29 SECONDS (21-34) 06/14/17 06:23
[2017-06-17] MEDS: MethylPREDNISolone 40 mg Vial IVP SCH ×3 (01:22→17:44)
[2017-06-17] MEDS: Albuterol-Ipratrop 3 mg / 0.5 (3 ml) UD INH SCH ×4 (01:27→19:51)
--- NOTE | 2017-06-17 02:54 | CON ---
DATE: 06/13/[address] Maddox to Dr. Zenobia Doan. I was called for GI consultation by the admitting MD. The patient is seen and fully examined on 06/13/2017 as requested by the admitting medical staff. The entire chart is reviewed including, but not limited to the most recent lab and radiology study results, current and previous medication list, current and previous medical events. Case discussed with the staff at length on 06/13/2017. HISTORY OF PRESENT ILLNESS: This is an 87-year-old male, who was admitted to the hospital initially with reported intermittent periods of mild mid chest and midepigastric, as well as lower abdominal pain with postprandial abdominal distention with intermittent period of mild nausea and dyspepsia. No reported significant shortness of breath, palpitations, active bleeding recently or chills or fever. PAST MEDICAL HISTORY: Including but not limited to, 1. Hypertension with congestive heart failure. 2. Hypothyroidism. 3. Atrial fibrillation. 4. COPD with bronchitis. 5. History of anemia before. 6. Known history of osteoporosis. 7. Osteoarthritis with left hip surgery recently. 8. Peptic ulcer disease. 9. Bone marrow biopsy before. FAMILY HISTORY: Mainly diabetes mellitus. SOCIAL HISTORY: Ex-smoker, but no alcohol intake. CURRENT MEDICATIONS: All medication lists were reviewed. ALLERGY TO MEDICATIONS: LIST IS REVIEWED. REVIEW OF SYSTEMS: Initial blood workup at the admission showed leukocytosis of 12.4 with low hemoglobin of 10.2, hematocrit 31.0, increased BUN is 44 with creatinine elevated to 1.8 with low CO2 content of 18. Subsequently and after being admitted to the hospital, the patient experienced more than one episodes of gross hematemesis, for which I was called for GI consultation. PHYSICAL EXAMINATION: GENERAL: An 87-year-old male, appeared to be somewhat cachexic, but awake, alert and oriented. HEENT: Showed pale, dry oral mucous membrane, nonicteric sclerae. LUNGS: Few scattered crepitations with decreased air entry at the bases. HEART: Positive S1 and S2. LYMPH NODES: No lymphadenitis or lymphadenopathy. VITAL SIGNS: The patient is afebrile with pulse of 90, respiratory rate 18 to 20, and blood pressure 134/64. ABDOMEN: Soft with generalized tenderness, but mainly midepigastric and midabdominal line. No mass or organomegaly. No rebound tenderness or guarding. RECTAL: The patient refused. EXTREMITIES: Show evidence of osteoarthritis in lower extremities, mild edematous changes. No clubbing or cyanosis. NEUROLOGIC: No reported new neurological deficits, sensory or motor. No focal deficits newly reported. Peripheral pulses are present, but decreased at bases. IMPRESSION: 1. Hematemesis, rule out gastric versus duodenal ulcer versus, less likely Aleksandra-Lofton tear. 2. Anemia secondary to above versus chronic disease. 3. Multiple past medical history including, but not limited to hypertension, congestive heart failure, atrial fibrillation, chronic obstructive pulmonary disease with pneumonia before, hypothyroidism, osteoporosis, as well as osteoarthritis with left hip surgery before. 4. Low CO2 content with metabolic acidosis, most likely secondary to above. 5. Renal insufficiency with dehydration. SUGGESTIONS: 1. Agree with your plan. 2. Blood transfusion as needed to keep hemoglobin around 10 gm percent. 3. Gentle rehydration. 4. Proton pump inhibitors. 5. Cancer markers including CEA and PSA. 6. Endoscopic evaluation of upper GI tract once the patient is more stable clinically. Thank you for letting me to participate in your patient's case management. Zarina Maddox MD
[2017-06-17] MEDS: Levothyroxine 100 MCG TAB PO SCH (06:22)
[2017-06-17] MEDS: Fluticasone-Salmeterol 250-50mcg Diskus INH SCH ×2 (07:00→19:51)
[2017-06-17] MEDS: Sucralfate 1 gm/10 ml Oral Susp UD PO SCH ×4 (09:53→21:56)
[2017-06-17] MEDS: Megestrol Acetate 40 mg/ml Cup PO SCH (09:53)
[2017-06-17 11:51] LABS: HEMOGLOBIN 9.3 g/dL (12.0-18.0); MEAN CELL VOLUME 81.9 fL (80.0-94.0); MEAN CORPUSCULAR HEMOGLOBIN 27.5 pg (27.0-31.0); MEAN CORPUSCULAR HGB CONC 33.6 g/dL (33.0-37.0); MEAN PLATELET VOLUME 8.3 fL (7.2-11.7); RBC 3.4 Mil/uL (4.40-5.90); RED CELL DISTRIBUTION WIDTH 15.6 % (11.5-14.5); WHITE BLOOD COUNT 3.8 K/uL (4.8-10.8)
[2017-06-17 12:00] LABS: ALBUMIN 2.8 g/dL (3.5-5.0); CALCIUM 8.1 mg/dl (8.6-10.4)
--- NOTE | 2017-06-17 14:37 | PN ---
DATE: 06/17/2017 LOCATION: 656, bed A. SUBJECTIVE: This is an 87 years old male seen and examined in rounds early today, tolerating oral intake well. No reported active bleeding. The entire chart is reviewed, including, but not limited to the most recent lab and radiology study results, current and the previous medication list, current and the previous medical events. Case discussed at length with the staff and the patient reported no evidence of active bleeding this morning with much less abdominal pain and less nausea and dyspepsia. The entire chart is reviewed, including, but not limited to the most recent lab and radiology study results, current and the previous medication list, current and the previous medical events and the patient still have low hemoglobin and hematocrit with reported increase CEA level. Case discussed with the staff at length. PHYSICAL EXAMINATION: GENERAL: An 87 years female, appears to be slightly cachectic. VITAL SIGNS: Afebrile with pulse of 74, respiratory rate of 20 to 22, blood pressure of 124/68. HEENT: Showed pale dry oral mucoid membranes. Nonicteric sclerae. LUNGS: Few scattered crepitation, decreased air entry at bases. HEART: Positive S1 and S2. ABDOMEN: Soft with mild generalized tenderness. No mass or organomegaly. No rebound tenderness or guarding. Mild distention noticed. RECTAL: vault empty. EXTREMITIES: Without significant clubbing, cyanosis or edema. NEUROLOGIC: No reported new focal neurological deficits, sensory or motor. Peripheral pulses are present bilaterally. IMPRESSION: 1. Recent history of hematemesis, none reported this morning. 2. Peptic ulcer disease. 3. Known history of but not limited to hypertension, congestive heat failure, chronic obstructive pulmonary disease, atrial fibrillation. 4. History of hypothyroidism, osteoporosis with osteoarthritis with left hip surgery. 5. Mildly elevated CEA level, the possibility of occult gastrointestinal malignancy showed be ruled out. 6. Anemia secondary to above. SUGGESTIONS: 1. Agree with your plan. 2. Colonoscopy if there is significant drop of hemoglobin and hematocrit, however, today's lab is still pending. That will be discussed with the admitting medical staff . Zarina Maddox MD [facility] # [id number]
--- NOTE | 2017-06-17 19:30 | CP.PCM.PN ---
Subjective - Date & Time of Evaluation Date of Evaluation: 06/17/17 Time of Evaluation: 09:40 - Subjective Subjective: clinically same Objective - Vital Signs/Intake and Output Vital Signs (last 24 hours): Temp Pulse Resp BP Pulse Ox 97.6 F 76 18 110/61 98 06/17/17 15:00 06/17/17 19:14 06/17/17 15:00 06/17/17 15:00 06/17/17 15:00 Intake and Output: 06/17/17 06/18/17 18:59 06:59 Intake Total 540 Balance 540 - Medications Medications: Current Medications Albuterol/Ipratropium (Duoneb 3 Mg/0.5 Mg (3 Ml) Ud) 3 ml INH RQ6 [facility] Last Admin: 06/17/17 14:01 Dose: 3 ml Carvedilol (Coreg) 3.125 mg PO BID [facility] Last Admin: 06/17/17 17:43 Dose: 3.125 mg Donepezil HCl (Aricept) 10 mg PO HS [facility] Last Admin: 06/16/17 21:22 Dose: 10 mg Ferrous Sulfate (Feosol) 325 mg PO DAILY [facility] Last Admin: 06/17/17 09:52 Dose: 325 mg Folic Acid (Folic Acid) 1 mg PO DAILY [facility] Last Admin: 06/17/17 09:52 Dose: 1 mg Furosemide (Lasix) 40 mg PO DAILY [facility] Last Admin: 06/17/17 09:52 Dose: 40 mg Levothyroxine Sodium (Synthroid) 100 mcg PO DAILY@0630 [facility] Last Admin: 06/17/17 06:22 Dose: 100 mcg Megestrol Acetate (Megace) 400 mg PO DAILY [facility] Last Admin: 06/17/17 09:53 Dose: 400 mg Methylprednisolone (Solu-Medrol) 40 mg IVP Q8H [facility] Last Admin: 06/17/17 17:44 Dose: 40 mg Pantoprazole Sodium (Protonix Inj) 40 mg IVP Q12H [facility] Last Admin: 06/17/17 17:44 Dose: 40 mg Phytonadione (Vitamin K Inj) 10 mg SC ONCE [facility] Promethazine HCl/Dextromethorphan (Phenergan Dm Syrup) 15 ml PO Q6H PRN PRN Reason: Cough Fluticasone/Salmeterol (Advair Diskus 250/50) 1 puff INH RQ12 [facility] Last Admin: 06/17/17 07:00 Dose: 1 puff Sucralfate (Carafate Oral Susp) 1 gm PO QID [facility] Last Admin: 06/17/17 17:43 Dose: 1 gm Tamsulosin HCl (Flomax) 0.4 mg PO DAILY [facility] Last Admin: 06/17/17 09:53 Dose: 0.4 mg - Labs Labs: 06/17/17 11:37 06/17/17 11:37 PT 14.5 SECONDS (9.7-12.2) H 06/14/17 06:23 INR 1.3 06/14/17 06:23 APTT 29 SECONDS (21-34) 06/14/17 06:23 - Constitutional Appears: Well - Head Exam Head Exam: ATRAUMATIC, NORMAL INSPECTION, NORMOCEPHALIC - Eye Exam Eye Exam: EOMI, Normal appearance, PERRL Pupil Exam: NORMAL ACCOMODATION, PERRL - ENT Exam ENT Exam: Mucous Membranes Moist, Normal Exam - Neck Exam Neck Exam: Full ROM, Normal Inspection. absent: Lymphadenopathy - Respiratory Exam Respiratory Exam: Decreased Breath Sounds - Cardiovascular Exam Cardiovascular Exam: REGULAR RHYTHM, +S1, +S2 - GI/Abdominal Exam GI & Abdominal Exam: Soft, Diminished Bowel Sounds - Rectal Exam Rectal Exam: Deferred
--- NOTE | 2017-06-17 20:05 | CP.PCM.CON ---
History of Present Illness - History of Present Illness History of Present Illness: 87 Y/O MALE PRESENTS TO ED FOR EVALUATION OF RECUR INTERMITTENT CP ONSET LAST NIGHT.PATIENT REPORTS NOW MID CHEST AND LOWER ABD PAIN. PATIENT DENIES SOB, FEVER. NVD PMHCHF, COPD, anemia, HTN, hypothyroidism and atrial fibrillation Review Of Systems Constitutional: Negative for: Fever, Chills Cardiovascular: Positive for: Chest Pain Respiratory: Negative for: Shortness of Breath Gastrointestinal: Positive for: Abdominal Pain. Negative for: Nausea, Vomiting Skin: Negative for: Rash Physical Exam - Physical Exam Appears: Non-toxic, Other (Mild distress) Skin: Warm, Dry, No Rash Head: Atraumatic, Normacephalic Oral Mucosa: Moist Neck: Normal ROM, Supple Cardiovascular: Rhythm Regular Respiratory: No Rales, No Rhonchi, Wheezing (B/L expiratory), Other (slight diminished breath sounds) Gastrointestinal/Abdominal: Soft, No Tenderness, No Guarding, No Rebound Back: No CVA Tenderness Extremity: Normal ROM, Capillary Refill (<2 seconds) Neurological/Psych: Oriented x3 Past Patient History - Infectious Disease Hx of Infectious Diseases: None - Past Medical History & Family History Past Medical History?: Yes - Past Social History Smoking Status: Former Smoker - CARDIAC Hx Congestive Heart Failure: Yes Hx Hypertension: Yes - PULMONARY Hx Chronic Obstructive Pulmonary Disease (COPD): Yes - NEUROLOGICAL Hx Neurological Disorder: No - HEENT Hx HEENT Problems: Yes Hx Cataracts: Yes - RENAL Hx Chronic Kidney Disease: No - ENDOCRINE/METABOLIC Hx Hypothyroidism: Yes - HEMATOLOGICAL/ONCOLOGICAL Hx Anemia: Yes - INTEGUMENTARY Hx Dermatological Problems: No - MUSCULOSKELETAL/RHEUMATOLOGICAL Hx Arthritis: Yes (L HIP SURG) - GASTROINTESTINAL Hx Gastritis: Yes - GENITOURINARY/GYNECOLOGICAL Hx Sexually Transmitted Disorders: No - PSYCHIATRIC Hx Substance Use: No - SURGICAL HISTORY Hx Surgeries: Yes Hx Joint Replacement: Yes (left hip replacement) Hx Orthopedic Surgery: Yes (hip surgery) Other/Comment: colon resection 06/2016 - ANESTHESIA Hx Anesthesia: Yes Hx Anesthesia Reactions: No Hx Malignant Hyperthermia: No Meds Allergies/Adverse Reactions: Allergies Allergy/AdvReac Type Severity Reaction Status Date / Time No Known Allergies Allergy Verified 06/13/17 11:05 - Medications Medications: Current Medications Albuterol/Ipratropium (Duoneb 3 Mg/0.5 Mg (3 Ml) Ud) 3 ml INH RQ6 [facility] Last Admin: 06/17/17 19:51 Dose: 3 ml Carvedilol (Coreg) 3.125 mg PO BID [facility] Last Admin: 06/17/17 17:43 Dose: 3.125 mg Donepezil HCl (Aricept) 10 mg PO HS [facility] Last Admin: 06/16/17 21:22 Dose: 10 mg Ferrous Sulfate (Feosol) 325 mg PO DAILY [facility] Last Admin: 06/17/17 09:52 Dose: 325 mg Folic Acid (Folic Acid) 1 mg PO DAILY [facility] Last Admin: 06/17/17 09:52 Dose: 1 mg Furosemide (Lasix) 40 mg PO DAILY [facility] Last Admin: 06/17/17 09:52 Dose: 40 mg Levothyroxine Sodium (Synthroid) 100 mcg PO DAILY@0630 [facility] Last Admin: 06/17/17 06:22 Dose: 100 mcg Megestrol Acetate (Megace) 400 mg PO DAILY [facility] Last Admin: 06/17/17 09:53 Dose: 400 mg Methylprednisolone (Solu-Medrol) 40 mg IVP Q8H [facility] Last Admin: 06/17/17 17:44 Dose: 40 mg Pantoprazole Sodium (Protonix Inj) 40 mg IVP Q12H [facility] Last Admin: 06/17/17 17:44 Dose: 40 mg Phytonadione (Vitamin K Inj) 10 mg SC ONCE [facility] Promethazine HCl/Dextromethorphan (Phenergan Dm Syrup) 15 ml PO Q6H PRN PRN Reason: Cough Fluticasone/Salmeterol (Advair Diskus 250/50) 1 puff INH RQ12 [facility] Last Admin: 06/17/17 19:51 Dose: 1 puff Sucralfate (Carafate Oral Susp) 1 gm PO QID [facility] Last Admin: 06/17/17 17:43 Dose: 1 gm Tamsulosin HCl (Flomax) 0.4 mg PO DAILY [facility] Last Admin: 06/17/17 09:53 Dose: 0.4 mg Results - Vital Signs Recent Vital Signs: Last Vital Signs Temp 97.6 F 06/17/17 15:00 Pulse 76 06/17/17 19:14 Resp 18 06/17/17 15:00 BP 110/61 06/17/17 15:00 Pulse Ox 98 06/17/17 15:00 - Labs Result Diagrams: 06/17/17 11:37 06/17/17 11:37 Labs: Laboratory Results - last 24 hr 06/17/17 06/17/17 11:37 11:37 WBC 3.8 L RBC 3.40 L Hgb 9.3 L Hct 27.8 L MCV 81.9 MCH 27.5 MCHC 33.6 RDW 15.6 H Plt Count 273 MPV 8.3 Sodium 137 Potassium 3.6 Chloride 109 H Carbon Dioxide 18 L Anion Gap 14 BUN 71 H Creatinine 2.1 H Est GFR ( Amer) 37 Est GFR (Non-Af Amer) 30 Random Glucose 173 H Calcium 8.1 L Total Bilirubin 0.3 AST 12 L D ALT 24 Alkaline Phosphatase 43 Total Protein 5.5 L Albumin 2.8 L Globulin 2.7 Albumin/Globulin Ratio 1.0 Assessment & Plan - Assessment and Plan (Free Text) Assessment: 1. Diastolic CHF 2. HTN 3. Hyperlipidemia 4. Hx of A Fib and GI bleed Continue current meds
[2017-06-18] MEDS: Albuterol-Ipratrop 3 mg / 0.5 (3 ml) UD INH SCH ×3 (01:08→13:41)
[2017-06-18] MEDS: MethylPREDNISolone 40 mg Vial IVP SCH ×2 (01:26→09:55)
[2017-06-18] MEDS: Levothyroxine 100 MCG TAB PO SCH (06:05)
[2017-06-18] MEDS: Fluticasone-Salmeterol 250-50mcg Diskus INH SCH (07:32)
[2017-06-18 08:16] VITALS: PULSE 77
[2017-06-18] MEDS: Megestrol Acetate 40 mg/ml Cup PO SCH (09:55)
[2017-06-18] MEDS: Sucralfate 1 gm/10 ml Oral Susp UD PO SCH ×2 (09:55→13:50)
--- NOTE | 2017-06-18 14:49 | CP.PCM.PN ---
Subjective - Date & Time of Evaluation Date of Evaluation: 06/18/17 Time of Evaluation: 07:31 - Subjective Subjective: PGY 2 Medicine Note- Dr. Jayson Doan's service Patient seen and examined in no immediate acute distress. Patient stated that he was feeling cold and wanted blankets pulled over his head. Patient could not seem to recall having initial complaints of chest pain when asked about initial presentation. He denies chest pain, palpitations, nausea, vomiting, diarrhea or constipation at this time. Objective - Vital Signs/Intake and Output Vital Signs (last 24 hours): Temp Pulse Resp BP Pulse Ox 97.7 F 77 18 130/85 98 06/18/17 08:15 06/18/17 08:15 06/18/17 08:15 06/18/17 09:56 06/18/17 08:15 Intake and Output: 06/18/17 06/18/17 06:59 18:59 Intake Total 600 Balance 600 - Medications Medications: Current Medications Albuterol/Ipratropium (Duoneb 3 Mg/0.5 Mg (3 Ml) Ud) 3 ml INH RQ6 [facility] Last Admin: 06/18/17 13:41 Dose: 3 ml Carvedilol (Coreg) 3.125 mg PO BID [facility] Last Admin: 06/18/17 09:56 Dose: 3.125 mg Donepezil HCl (Aricept) 10 mg PO HS [facility] Last Admin: 06/17/17 21:56 Dose: 10 mg Ferrous Sulfate (Feosol) 325 mg PO DAILY [facility] Last Admin: 06/18/17 10:00 Dose: 325 mg Folic Acid (Folic Acid) 1 mg PO DAILY [facility] Last Admin: 06/18/17 09:55 Dose: 1 mg Furosemide (Lasix) 40 mg PO DAILY [facility] Last Admin: 06/18/17 09:56 Dose: 40 mg Heparin Sodium (Porcine) (Heparin) 5,000 units SC Q8 [facility] Last Admin: 06/18/17 06:06 Dose: 5,000 units Levothyroxine Sodium (Synthroid) 100 mcg PO DAILY@0630 [facility] Last Admin: 06/18/17 06:05 Dose: 100 mcg Megestrol Acetate (Megace) 400 mg PO DAILY [facility] Last Admin: 06/18/17 09:55 Dose: 400 mg Methylprednisolone (Solu-Medrol) 40 mg IVP Q8H [facility] Last Admin: 06/18/17 09:55 Dose: 40 mg Pantoprazole Sodium (Protonix Inj) 40 mg IVP Q12H [facility] Last Admin: 06/18/17 05:10 Dose: 40 mg Phytonadione (Vitamin K Inj) 10 mg SC ONCE [facility] Promethazine HCl/Dextromethorphan (Phenergan Dm Syrup) 15 ml PO Q6H PRN PRN Reason: Cough Fluticasone/Salmeterol (Advair Diskus 250/50) 1 puff INH RQ12 [facility] Last Admin: 06/18/17 07:32 Dose: 1 puff Sucralfate (Carafate Oral Susp) 1 gm PO QID [facility] Last Admin: 06/18/17 13:50 Dose: 1 gm Tamsulosin HCl (Flomax) 0.4 mg PO DAILY [facility] Last Admin: 06/18/17 09:55 Dose: 0.4 mg - Labs Labs: 06/17/17 11:37 06/17/17 11:37 PT 14.5 SECONDS (9.7-12.2) H 06/14/17 06:23 INR 1.3 06/14/17 06:23 APTT 29 SECONDS (21-34) 06/14/17 06:23 - Constitutional Appears: Non-toxic, No Acute Distress - Head Exam Head Exam: ATRAUMATIC, NORMAL INSPECTION - Eye Exam Eye Exam: EOMI, Normal appearance - ENT Exam ENT Exam: Mucous Membranes Moist - Neck Exam Neck Exam: Full ROM - Respiratory Exam Respiratory Exam: NORMAL BREATHING PATTERN - Cardiovascular Exam Cardiovascular Exam: +S1, +S2 - GI/Abdominal Exam GI & Abdominal Exam: Soft, Normal Bowel Sounds - Extremities Exam Extremities Exam: Full ROM - Back Exam Back Exam: Full ROM - Neurological Exam Neurological Exam: Alert, Awake, Oriented x3 - Psychiatric Exam Psychiatric exam: Flat Affect - Skin Skin Exam: Dry, Normal Color, Warm Assessment and Plan - Assessment and Plan (Free Text) Assessment: GI Bleed Hematemesis noted as per initial reports Dr. Perea ( GI) on the case- F/U recommendations Upper Endoscopy- LA Grade B reflux esophagitis, medium-sized hiatal hernia; normal duodenum. Refer to complete report. Anemia Likely chronic in nature Recommendations for Hgb to be close to 10 Feosol Folic acid Cont to monitor NOEMI Elevated Cr Hx of fluctuating Cr Recommend IV fuid hydration and PO intake as tolerated History of Atrial Fibrillation On Coreg F/U recommendations of Nurse Reviewer, Dr. Huang Continue to monitor Diastolic CHF On Lasix, Coreg at this time Recommendations for echo outpatient if patient is to be discharged as there is no echo in the record. Hx of COPD On Duonebs, advair, solu-medrol, promethazine Cont to monitor Hypothyroidism On synthroid Hyperlipidemia Heart healthy diet at this time Dementia Baseline flat affect Donepezil Prophylactic Measure PPI 40 IV Q12 Heparin [facility] Patient to be discharged. refer to discharge planning in the chart. Discussed with attending. All management and planning per Dr. Doan
--- NOTE | 2017-06-18 14:54 | CP.PCM.PN ---
Subjective - Date & Time of Evaluation Date of Evaluation: 06/18/17 Time of Evaluation: 14:54 - Subjective Subjective: PT STABLE AND CLEARED FOR D/C PER DR. KOWALSKI. DISCUSSED D/C PLAN WITH DAUGHTER CRIS AND THE PT. THEY ARE IN AGREEMENT WITH PLAN. MEDICATION CHANGES ALSO DISCUSSED. NEW RX SENT TO PHARMACY. TO F/U WITH DR BAXTER IN THE OFFICE WELL DR. DURAND AND DR. PALMER. NO FURTHER ORDERS. -FOLLOW UP WITH DR. Zenobia KOWALSKI IN THE OFFICE WITHIN 5-7 DAYS AFTER DISCHARGE--- CALL THE OFFICE TOMORROW TO MAKE AN APPOINTMENT. -FOLLOW UP WITH DR. DURAND OR YOUR PRIMARY LEGAL BILLING CLERK IN THE OFFICE WITHIN 10- 14 DAYS AFTER DISCHARGE---CALL THE OFFICE TOMORROW TO MAKE AN APPOINTMENT. -FOLLOW UP WITH DR. PALMER (STOMACH DOCTOR) IN THE OFFICE WITHIN 10-14 DAYS AFTER DISCHARGE---CALL THE OFFICE TOMORROW TO MAKE AN APPOINTMENT. -CONTINUE HOME MEDICATIONS USUAL. -HOLD YOUR BLOOD THINNER UNTIL YOU SEE Venessa KOWALSKI IN THE OFFICE. -NEW PRESCRIPTIONS PER YOUR DOCTOR AND THE STOMACH DOCTOR; THESE PRESCRIPTIONS HAVE BEEN SENT TO YOUR PHARMACY ALREADY; PACK MASTER TODAY: 1) COREG 3.125 MG (1 TABLET) BY MOUTH TWICE A DAY(MORNING AND EVENING) ---- FOR BLOOD PRESSURE 2) ARICEPT 10 MG ( 1 TABLET) BY MOUTH AT BEDTIME----FOR MEMORY 3) ADVAIR INHALER USE TWICE A DAY (MORNING AND EVENING)---FOR YOUR BREATHING 4) FOLIC ACID 1 MG ( 1 TABLET) BY MOUTH DAILY--- VITAMIN 5) LASIX 40 MG (1 TABLET) BY MOUTH DAILY ----WATER PILL 6) CARAFATE 1 GM BY MOUTH 4 TIMES A DAY ----FOR YOUR STOMACH -FOR FURTHER CONCERNS OR QUESTIONS, CONTACT DR. Jayson KOWALSKI'S OFFICE. Objective - Vital Signs/Intake and Output Vital Signs (last 24 hours): Temp Pulse Resp BP Pulse Ox 97.7 F 77 18 130/85 98 06/18/17 08:15 06/18/17 08:15 06/18/17 08:15 06/18/17 09:56 06/18/17 08:15 Intake and Output: 06/18/17 06/18/17 06:59 18:59 Intake Total 600 Balance 600 - Medications Medications: Current Medications Albuterol/Ipratropium (Duoneb 3 Mg/0.5 Mg (3 Ml) Ud) 3 ml INH RQ6 [facility] Last Admin: 06/18/17 13:41 Dose: 3 ml Carvedilol (Coreg) 3.125 mg PO BID [facility] Last Admin: 06/18/17 09:56 Dose: 3.125 mg Donepezil HCl (Aricept) 10 mg PO HS [facility] Last Admin: 06/17/17 21:56 Dose: 10 mg Ferrous Sulfate (Feosol) 325 mg PO DAILY [facility] Last Admin: 06/18/17 10:00 Dose: 325 mg Folic Acid (Folic Acid) 1 mg PO DAILY [facility] Last Admin: 06/18/17 09:55 Dose: 1 mg Furosemide (Lasix) 40 mg PO DAILY [facility] Last Admin: 06/18/17 09:56 Dose: 40 mg Heparin Sodium (Porcine) (Heparin) 5,000 units SC Q8 [facility] Last Admin: 06/18/17 14:51 Dose: 5,000 units Levothyroxine Sodium (Synthroid) 100 mcg PO DAILY@0630 [facility] Last Admin: 06/18/17 06:05 Dose: 100 mcg Megestrol Acetate (Megace) 400 mg PO DAILY [facility] Last Admin: 06/18/17 09:55 Dose: 400 mg Methylprednisolone (Solu-Medrol) 40 mg IVP Q8H [facility] Last Admin: 06/18/17 09:55 Dose: 40 mg Pantoprazole Sodium (Protonix Inj) 40 mg IVP Q12H [facility] Last Admin: 06/18/17 05:10 Dose: 40 mg Phytonadione (Vitamin K Inj) 10 mg SC ONCE [facility] Promethazine HCl/Dextromethorphan (Phenergan Dm Syrup) 15 ml PO Q6H PRN PRN Reason: Cough Fluticasone/Salmeterol (Advair Diskus 250/50) 1 puff INH RQ12 [facility] Last Admin: 06/18/17 07:32 Dose: 1 puff Sucralfate (Carafate Oral Susp) 1 gm PO QID [facility] Last Admin: 06/18/17 13:50 Dose: 1 gm Tamsulosin HCl (Flomax) 0.4 mg PO DAILY [facility] Last Admin: 06/18/17 09:55 Dose: 0.4 mg - Labs Labs: 06/17/17 11:37 06/17/17 11:37 PT 14.5 SECONDS (9.7-12.2) H 06/14/17 06:23 INR 1.3 06/14/17 06:23 APTT 29 SECONDS (21-34) 06/14/17 06:23
--- NOTE | 2017-06-18 16:09 | CP.PCM.PN ---
<Pepito Lerma - Last Filed: 06/18/17 16:03> Subjective - Date & Time of Evaluation Date of Evaluation: 06/18/17 Time of Evaluation: 16:03 - Subjective Subjective: PGY-[address] Huang No acute events overnight. Patient denied chest pain or palpitations. Offered no other complaints. Objective - Vital Signs/Intake and Output Vital Signs (last 24 hours): Temp Pulse Resp BP Pulse Ox 97.7 F 77 18 130/85 98 06/18/17 08:15 06/18/17 08:15 06/18/17 08:15 06/18/17 09:56 06/18/17 08:15 Intake and Output: 06/18/17 06/18/17 06:59 18:59 Intake Total 600 Balance 600 - Medications Medications: Current Medications Albuterol/Ipratropium (Duoneb 3 Mg/0.5 Mg (3 Ml) Ud) 3 ml INH RQ6 [facility] Last Admin: 06/18/17 13:41 Dose: 3 ml Carvedilol (Coreg) 3.125 mg PO BID [facility] Last Admin: 06/18/17 09:56 Dose: 3.125 mg Donepezil HCl (Aricept) 10 mg PO HS [facility] Last Admin: 06/17/17 21:56 Dose: 10 mg Ferrous Sulfate (Feosol) 325 mg PO DAILY [facility] Last Admin: 06/18/17 10:00 Dose: 325 mg Folic Acid (Folic Acid) 1 mg PO DAILY [facility] Last Admin: 06/18/17 09:55 Dose: 1 mg Furosemide (Lasix) 40 mg PO DAILY [facility] Last Admin: 06/18/17 09:56 Dose: 40 mg Heparin Sodium (Porcine) (Heparin) 5,000 units SC Q8 [facility] Last Admin: 06/18/17 14:51 Dose: 5,000 units Levothyroxine Sodium (Synthroid) 100 mcg PO DAILY@0630 [facility] Last Admin: 06/18/17 06:05 Dose: 100 mcg Megestrol Acetate (Megace) 400 mg PO DAILY [facility] Last Admin: 06/18/17 09:55 Dose: 400 mg Methylprednisolone (Solu-Medrol) 40 mg IVP Q8H [facility] Last Admin: 06/18/17 09:55 Dose: 40 mg Pantoprazole Sodium (Protonix Inj) 40 mg IVP Q12H [facility] Last Admin: 06/18/17 05:10 Dose: 40 mg Phytonadione (Vitamin K Inj) 10 mg SC ONCE [facility] Promethazine HCl/Dextromethorphan (Phenergan Dm Syrup) 15 ml PO Q6H PRN PRN Reason: Cough Fluticasone/Salmeterol (Advair Diskus 250/50) 1 puff INH RQ12 [facility] Last Admin: 06/18/17 07:32 Dose: 1 puff Sucralfate (Carafate Oral Susp) 1 gm PO QID [facility] Last Admin: 06/18/17 13:50 Dose: 1 gm Tamsulosin HCl (Flomax) 0.4 mg PO DAILY [facility] Last Admin: 06/18/17 09:55 Dose: 0.4 mg - Labs Labs: 06/17/17 11:37 06/17/17 11:37 PT 14.5 SECONDS (9.7-12.2) H 06/14/17 06:23 INR 1.3 06/14/17 06:23 APTT 29 SECONDS (21-34) 06/14/17 06:23 - Additional Findings Additional findings: - Constitutional Appears: Non-toxic, No Acute Distress - Head Exam Head Exam: ATRAUMATIC, NORMAL INSPECTION - Eye Exam Eye Exam: EOMI, Normal appearance - ENT Exam ENT Exam: Mucous Membranes Moist - Neck Exam Neck Exam: Full ROM - Respiratory Exam Respiratory Exam: NORMAL BREATHING PATTERN - Cardiovascular Exam Cardiovascular Exam: +S1, +S2 - GI/Abdominal Exam GI & Abdominal Exam: Soft, Normal Bowel Sounds - Extremities Exam Extremities Exam: Full ROM - Back Exam Back Exam: Full ROM - Neurological Exam Neurological Exam: Alert, Awake, Oriented x3 - Skin Skin Exam: Dry, Normal Color, Warm Assessment and Plan - Assessment and Plan (Free Text) Assessment: History of Atrial Fibrillation Con't Coreg 3.125mg BID Rate controlled Diastolic CHF Pro-bnp on admission: 56219 Con't Lasix 40mg PO QD Con't coreg 3.125mg BID Recommendations for echo outpatient if patient is to be discharged as there is no echo in the record Hypertension BP well controlled Con't coreg 3.125mg BID <Jv Huang - Last Filed: 06/18/17 18:35> Objective - Vital Signs/Intake and Output Vital Signs (last 24 hours): Temp Pulse Resp BP Pulse Ox 97.8 F 77 20 109/60 99 06/18/17 15:45 06/18/17 15:45 06/18/17 15:45 06/18/17 15:45 06/18/17 15:45 Intake and Output: 06/18/17 06/18/17 06:59 18:59 Intake Total 600 Balance 600 - Labs Labs: 06/17/17 11:37 06/17/17 11:37 PT 14.5 SECONDS (9.7-12.2) H 06/14/17 06:23 INR 1.3 06/14/17 06:23 APTT 29 SECONDS (21-34) 06/14/17 06:23 Assessment and Plan - Assessment and Plan (Free Text) Plan: Patient seen and evaluated Plan of care discussed during rounds and as documented
[2017-06-18 16:10] VITALS: BP 109/60; RESP 20; TEMP 97.8; O2SAT 99
--- NOTE | 2017-06-18 16:34 | CP.PCM.PN ---
Subjective - Date & Time of Evaluation Date of Evaluation: 06/18/17 Time of Evaluation: 11:40 - Subjective Subjective: clinically same Objective - Vital Signs/Intake and Output Vital Signs (last 24 hours): Temp Pulse Resp BP Pulse Ox 97.8 F 77 20 109/60 99 06/18/17 15:45 06/18/17 15:45 06/18/17 15:45 06/18/17 15:45 06/18/17 15:45 Intake and Output: 06/18/17 06/18/17 06:59 18:59 Intake Total 600 Balance 600 - Medications Medications: Current Medications Albuterol/Ipratropium (Duoneb 3 Mg/0.5 Mg (3 Ml) Ud) 3 ml INH RQ6 [facility] Last Admin: 06/18/17 13:41 Dose: 3 ml Carvedilol (Coreg) 3.125 mg PO BID [facility] Last Admin: 06/18/17 09:56 Dose: 3.125 mg Donepezil HCl (Aricept) 10 mg PO HS [facility] Last Admin: 06/17/17 21:56 Dose: 10 mg Ferrous Sulfate (Feosol) 325 mg PO DAILY [facility] Last Admin: 06/18/17 10:00 Dose: 325 mg Folic Acid (Folic Acid) 1 mg PO DAILY [facility] Last Admin: 06/18/17 09:55 Dose: 1 mg Furosemide (Lasix) 40 mg PO DAILY [facility] Last Admin: 06/18/17 09:56 Dose: 40 mg Heparin Sodium (Porcine) (Heparin) 5,000 units SC Q8 [facility] Last Admin: 06/18/17 14:51 Dose: 5,000 units Levothyroxine Sodium (Synthroid) 100 mcg PO DAILY@0630 [facility] Last Admin: 06/18/17 06:05 Dose: 100 mcg Megestrol Acetate (Megace) 400 mg PO DAILY [facility] Last Admin: 06/18/17 09:55 Dose: 400 mg Methylprednisolone (Solu-Medrol) 40 mg IVP Q8H [facility] Last Admin: 06/18/17 09:55 Dose: 40 mg Pantoprazole Sodium (Protonix Inj) 40 mg IVP Q12H [facility] Last Admin: 06/18/17 05:10 Dose: 40 mg Phytonadione (Vitamin K Inj) 10 mg SC ONCE [facility] Promethazine HCl/Dextromethorphan (Phenergan Dm Syrup) 15 ml PO Q6H PRN PRN Reason: Cough Fluticasone/Salmeterol (Advair Diskus 250/50) 1 puff INH RQ12 [facility] Last Admin: 06/18/17 07:32 Dose: 1 puff Sucralfate (Carafate Oral Susp) 1 gm PO QID [facility] Last Admin: 06/18/17 13:50 Dose: 1 gm Tamsulosin HCl (Flomax) 0.4 mg PO DAILY [facility] Last Admin: 06/18/17 09:55 Dose: 0.4 mg - Labs Labs: 06/17/17 11:37 06/17/17 11:37 PT 14.5 SECONDS (9.7-12.2) H 06/14/17 06:23 INR 1.3 06/14/17 06:23 APTT 29 SECONDS (21-34) 06/14/17 06:23 - Constitutional Appears: Well - Head Exam Head Exam: ATRAUMATIC, NORMAL INSPECTION, NORMOCEPHALIC - Eye Exam Eye Exam: EOMI, Normal appearance, PERRL Pupil Exam: NORMAL ACCOMODATION, PERRL - ENT Exam ENT Exam: Mucous Membranes Moist, Normal Exam - Neck Exam Neck Exam: Full ROM, Normal Inspection. absent: Lymphadenopathy - Respiratory Exam Respiratory Exam: Decreased Breath Sounds - Cardiovascular Exam Cardiovascular Exam: REGULAR RHYTHM, +S1, +S2 - GI/Abdominal Exam GI & Abdominal Exam: Soft, Diminished Bowel Sounds - Rectal Exam Rectal Exam: Deferred
--- NOTE | 2017-06-18 19:47 | PN ---
DATE: 06/18/2017 LOCATION: 656, bed A. SUBJECTIVE: This is an 87 years old male seen and examined in rounds without significant clinical changes or reported active bleeding. Somewhat tolerating oral intake when seen by the solar sales consultant ____. His recommendation was reviewed and appreciated. The patient still intermittent period of mild abdominal pain with dyspepsia, but no reported severe chest pain, palpitation or significant shortness of breath. Most recent lab result today is still pending. However, the patient reported still to have low hemoglobin and hematocrit with low albumin and low total protein with elevated CEA level to 3.2. The rest of the lab results is seen was BUN of 71, creatinine 2.1 . PHYSICAL EXAMINATION: GENERAL: An 87 years old male, afebrile. VITAL SIGNS: With pulse of 80, respiratory rate 20 - 22, blood pressure 136/52. HEENT: Showed mildly pale, dry oral mucoid membrane, nonicteric sclerae. LUNGS: With scattered crepitation, decreased air entry at bases. HEART: Positive S1 and S2. ABDOMEN: Soft. Bowel sounds are present. No mass or organomegaly. No rebound tenderness or guarding. EXTREMITIES: Without significant clubbing, cyanosis or edema. NEUROLOGIC: No reported new focal neurological deficits, sensory or motor. IMPRESSION: 1. Reexacerbation of peptic ulcer disease. 2. Recent history of gastrointestinal bleeding, none now. 3. Known history of hypertension, congestive heart failure with atrial fibrillation. 4. Known history of chronic obstructive pulmonary disease with bronchitis. 5. History of hypothyroidism with osteoporosis. 6. Mildly elevated CEA level to rule out occult gastrointestinal malignancy. 7. Anemia secondary to above. SUGGESTIONS: 1. Continue current management. 2. Endoscopic evaluation of the lower GI tract if the patient is stable clinically. Otherwise, close observation to follow. Zarina Maddox MD
== END 2017-06-18 17:13 | disposition home or self-care (01) | DRG 193 ==
LOC: C.ER 10:48 → C.6T 13:23
PROVIDERS: ADMIT Internal Medicine Nephrology; ATTEND Internal Medicine Nephrology
PROC: 0DB68ZX Excision of Stomach, Via Natural or Artificial Opening Endoscopic, Diagnostic (ICD-10-PCS; principal; 2017-06-14 11:45)
DX: J18.9 Pneumonia, unspecified organism (principal); I50.33 Acute on chronic diastolic (congestive) heart failure; K92.0 Hematemesis; J44.0 Chronic obstructive pulmonary disease with (acute) lower respiratory infection; N17.9 Acute kidney failure, unspecified; E87.2 Acidosis; D63.8 Anemia in other chronic diseases classified elsewhere; I48.91 Unspecified atrial fibrillation; E86.0 Dehydration; J43.9 Emphysema, unspecified; E11.9 Type 2 diabetes mellitus without complications; I11.0 Hypertensive heart disease with heart failure; E03.9 Hypothyroidism, unspecified; E78.5 Hyperlipidemia, unspecified; F03.90 Unspecified dementia, unspecified severity, without behavioral disturbance, psychotic disturbance, mood disturbance, and anxiety; K21.0 Gastro-esophageal reflux disease with esophagitis; M16.12 Unilateral primary osteoarthritis, left hip; K44.9 Diaphragmatic hernia without obstruction or gangrene; K27.9 Peptic ulcer, site unspecified, unspecified as acute or chronic, without hemorrhage or perforation; M81.0 Age-related osteoporosis without current pathological fracture; Z87.01 Personal history of pneumonia (recurrent); Z87.11 Personal history of peptic ulcer disease; Z87.891 Personal history of nicotine dependence; Z96.642 Presence of left artificial hip joint

== ENCOUNTER 2017-11-01 21:33 | Inpatient (IN) | payer MEDICARE, MEDICAID ==
[2017-11-01 21:33] VITALS: PULSE 80
--- NOTE | 2017-11-01 22:19 | C.PDOC ---
History Of Present Illness Patient seen tonite due to increased SOB and leg swelling fo the past few days desspite taking diuretics. Denies any chest pain. Chief Complaint (Nursing): Shortness Of Breath History Per: Patient, Family History/Exam Limitations: no limitations Onset/Duration Of Symptoms: Days Current Symptoms Are (Timing): Still Present Quality: Other (Shortness of breath) Exacerbating Factor(s): Exertion, Laying Flat Current Respiratory Medications: Diuretic Severity: Moderate Pain Scale Rating Of: 2 Associated Symptoms: Ankle/Leg Swelling Reports Recently: Treated By A Physician Recent travel outside of the [place]: No Additional History Per: Family Past Medical History Reviewed: Historical Data, Nursing Documentation, Vital Signs Vital Signs: Last Vital Signs Temp 98.5 F 11/01/17 21:50 Pulse 91 H 11/01/17 21:50 Resp 26 H 11/01/17 22:07 BP 148/68 11/01/17 21:50 Pulse Ox 100 11/01/17 22:56 - Medical History PMH: Anemia, Arthritis (L HIP SURG), Atrial Fibrillation, Bronchitis, CHF, COPD , Emphysema, Gastritis, HTN, Hypothyroidism, Osteoporosis, Pneumonia Denies: Anxiety, Bipolar Disorder, Crohn's Disease, Depression, Diverticulitis, Gall Bladder Disease, HIV, Kidney Stones, Pancreatitis, Post Traumatic Stress Disorder, Chronic Kidney Disease, Rheumatoid Arthritis, Schizophrenia, Sickle Cell Disease, Sexually Transmitted Disease Surgical History: No Surg Hx - [facility] BONE MARROW BIOPSY (10/20/03) CLOSED ENDOSCOPIC BIOPSY OF LARGE INTESTINE (05/02/14) COLONOSCOPY (10/20/03) ESOPHAGOGASTRODUODENOSCOPY [EGD] W/CLOSED BIOPSY (10/20/03) EXCISION OF ASCENDING COLON, ENDO, DIAGN (06/09/16) EXCISION OF LEFT UPPER LUNG LOBE, PERC APPROACH, DIAGN (06/09/16) EXCISION OF SIGMOID COLON, ENDO, DIAGN (06/09/16) EXCISION OF STOMACH, ENDO, DIAGN (06/13/17) INJECT STEROID (10/20/03) INJECTION INTO JOINT (10/20/03) INSERTION OF INFUSION DEV INTO SUP VENA CAVA, PERC APPROACH (09/12/16) INSPECTION OF UPPER INTESTINAL TRACT, ENDO (05/27/16) INTRODUCTION OF NUTRITIONAL INTO PERIPH ART, PERC APPROACH (06/09/16) PACKED CELL TRANSFUSION (10/20/03) RESECTION OF APPENDIX, OPEN APPROACH (06/09/16) RESECTION OF SIGMOID COLON, OPEN APPROACH (06/09/16) TRANSFUSE NONAUT RED BLOOD CELLS IN PERIPH VEIN, PERC (11/10/16) VACCINATION NEC (05/02/14) Family History: States: Unknown Family Hx, Diabetes - Social History Hx Tobacco Use: No (quit 15 yrs ago, was a heavy smoker) Hx Alcohol Use: No Hx Substance Use: No - Immunization History Hx Tetanus Toxoid Vaccination: No Hx Influenza Vaccination: No Hx Pneumococcal Vaccination: No Review Of Systems Except As Marked, All Systems Reviewed And Found Negative. Respiratory: Positive for: Shortness of Breath Musculoskeletal: Positive for: Other (lrg swelling) Physical Exam - Physical Exam Appears: No Acute Distress Skin: Normal Color Eye(s): bilateral: Normal Inspection, PERRL, EOMI Nose: Normal Throat: Normal Neck: Normal Cardiovascular: Rhythm Regular, Edema, No Murmur, No JVD Respiratory: Rales (bilateral) Gastrointestinal/Abdominal: Normal Exam Back: Normal Inspection Extremity: Normal ROM, No Tenderness, Pedal Edema, Swelling, Other (bilateral leg edema) Extremity: Bilateral: Atraumatic, Bony Point Tenderness, Hips Non-Tender ED Course And Treatment - Laboratory Results Result Diagrams: 11/01/17 22:26 11/01/17 22:26 ECG: Interpreted By Me, Viewed By Me ECG Rhythm: Sinus Rhythm ECG Interpretation: Normal, No Acute Changes Interpretation Of ECG: NSR, normal tracings. Rate From EC O2 Sat by Pulse Oximetry: 100 (ON RA) Pulse Ox Interpretation: Normal - Radiology CXR: Interpreted by Me, Viewed By Me CXR Interpretation: Yes: Other (CHF) Disposition Discussed With : Angelica Doan Doctor Will See Patient In The: Hospital Counseled Patient/Family Regarding: Diagnosis - Disposition Disposition: HOSPITALIZED Disposition Time: 22:59 Condition: STABLE Forms: [facility] ([place]) - POA Present On Arrival: None - Clinical Impression Clinical Impression: CHF (congestive heart failure), Leg edema
[2017-11-01 22:31] LABS: BASO # 0.1 K/uL (0.0-0.2); BASO % 0.9 % (0.0-2.0); EOS # 1.4 K/uL (0.0-0.7); EOS % 19.8 % (0.0-4.0); HEMOGLOBIN 8.2 g/dL (12.0-18.0); LYMPH # 1.5 K/uL (1.0-4.3); LYMPH % 21.8 % (20.0-40.0); MEAN CELL VOLUME 80.4 fL (80.0-94.0); MEAN CORPUSCULAR HEMOGLOBIN 25.9 pg (27.0-31.0); MEAN CORPUSCULAR HGB CONC 32.2 g/dL (33.0-37.0); MEAN PLATELET VOLUME 7.1 fL (7.2-11.7); MONO # 0.7 K/uL (0.0-0.8); MONO % 9.9 % (0.0-10.0); NEUT # 3.3 K/uL (1.8-7.0); NEUT % 47.6 % (50.0-75.0); RBC 3.16 Mil/uL (4.40-5.90); RED CELL DISTRIBUTION WIDTH 14.7 % (11.5-14.5)
[2017-11-01 22:41] LABS: INR 1.3; PROTHROMBIN TIME 14.6 SECONDS (9.7-12.2)
[2017-11-01 22:45] LABS: ALB/GLOB RATIO 1.3 (1.0-2.1); ALBUMIN 3.7 g/dL (3.5-5.0); ALT/SGPT 21 U/L (21-72); AST/SGOT 22 U/L (17-59); BLOOD UREA NITROGEN 43 mg/dL (9-20); CALCIUM 8.2 mg/dl (8.6-10.4); GFR AFRICAN-AMERICAN 23; GFR NON-AFRICAN AMERICAN 19
[2017-11-01 22:56] LABS: B-TYPE NATRIURETIC PEPTIDE 6620 pg/mL (0-900)
[2017-11-02] MEDS: Albuterol-Ipratrop 3 mg / 0.5 (3 ml) UD INH SCH ×3 (02:31→20:06)
[2017-11-02] MEDS ORDERED: Albuterol-Ipratrop 3 mg / 0.5 (3 ml) UD ONE ×3 (02:35→15:40)
[2017-11-02 06:56] LABS: CK-MB 2.24 ng/mL (0.0-3.38)
[2017-11-02] MEDS ORDERED: MethylPREDNISolone 40 mg Vial ONE ×3 (06:59→22:20)
[2017-11-02] MEDS: Fluticasone-Salmeterol 250-50mcg Diskus INH SCH ×2 (10:23→20:05)
[2017-11-02] MEDS: Sucralfate 1 gm/10 ml Oral Susp UD PO SCH ×4 (10:41→22:03)
[2017-11-02] MEDS: Megestrol Acetate 40 mg/ml Cup PO SCH (10:42)
[2017-11-02] MEDS: Pantoprazole 40 mg EC Tab PO SCH (10:42)
[2017-11-02] MEDS: Levothyroxine 100 MCG TAB PO SCH (10:42)
[2017-11-02] MEDS: Enoxaparin 40 mg Syringe SC SCH (10:50)
--- NOTE | 2017-11-02 13:36 | CP.PCM.CON ---
History of Present Illness - History of Present Illness History of Present Illness: patient seen examined full consutl to follow. Patient presents with lower extremity edema, pulmonary edema. currently lying flat in bed. recommend diuretic therapy, but will have to watch creatinine. recommend echocardiogram Past Patient History - Infectious Disease Hx of Infectious Diseases: None - Past Medical History & Family History Past Medical History?: Yes - Past Social History Smoking Status: Former Smoker - CARDIAC Hx Atrial Fibrillation: Yes Hx Congestive Heart Failure: Yes Hx Hypertension: Yes - PULMONARY Hx Bronchitis: Yes Hx Chronic Obstructive Pulmonary Disease (COPD): Yes Hx Emphysema: Yes Hx Pneumonia: Yes - NEUROLOGICAL Hx Neurological Disorder: No - HEENT Hx HEENT Problems: Yes Hx Cataracts: Yes - RENAL Hx Chronic Kidney Disease: No Hx Kidney Stones: No - ENDOCRINE/METABOLIC Hx Hypothyroidism: Yes - HEMATOLOGICAL/ONCOLOGICAL Hx Anemia: Yes Hx Human Immunodeficiency Virus (HIV): No Hx Sickle Cell Disease: No - INTEGUMENTARY Hx Dermatological Problems: No - MUSCULOSKELETAL/RHEUMATOLOGICAL Hx Arthritis: Yes (L HIP SURG) Hx Osteoporosis: Yes Hx Rheumatoid Arthritis: No - GASTROINTESTINAL Hx Crohn's Disease: No Hx Diverticulitis: No Hx Gall Bladder Disease: No Hx Gastritis: Yes Hx Pancreatitis: No - GENITOURINARY/GYNECOLOGICAL Hx Sexually Transmitted Disorders: No - PSYCHIATRIC Hx Anxiety: No Hx Bipolar Disorder: No Hx Depression: No Hx Post Traumatic Stress Disorder: No Hx Schizophrenia: No Hx Substance Use: No - SURGICAL HISTORY Hx Surgeries: Yes Hx Joint Replacement: Yes (left hip replacement) Hx Orthopedic Surgery: Yes (hip surgery) Other/Comment: colon resection 06/2016 - ANESTHESIA Hx Anesthesia: Yes Hx Anesthesia Reactions: No Hx Malignant Hyperthermia: No Meds Allergies/Adverse Reactions: Allergies Allergy/AdvReac Type Severity Reaction Status Date / Time No Known Allergies Allergy Verified 06/13/17 11:05 - Medications Medications: Current Medications Acetaminophen (Tylenol 325mg Tab) 2 mg PO Q4 PRN PRN Reason: Pain, Mild (1-3) Albuterol/Ipratropium (Duoneb 3 Mg/0.5 Mg (3 Ml) Ud) 3 ml INH RQ6 [facility] Last Admin: 11/02/17 08:30 Dose: 3 ml Carvedilol (Coreg) 3.125 mg PO BID [facility] Last Admin: 11/02/17 10:41 Dose: 3.125 mg Donepezil HCl (Aricept) 10 mg PO HS [facility] Enoxaparin Sodium (Lovenox) 40 mg SC DAILY [facility] Last Admin: 11/02/17 10:50 Dose: 40 mg Ferrous Sulfate (Feosol) 325 mg PO DAILY [facility] Last Admin: 11/02/17 10:41 Dose: 325 mg Folic Acid (Folic Acid) 1 mg PO DAILY [facility] Last Admin: 11/02/17 10:42 Dose: 1 mg Furosemide (Lasix) 40 mg IVP DAILY [facility] Last Admin: 11/02/17 10:48 Dose: 40 mg Ceftriaxone Sodium 1 gm/ (Sodium Chloride) 100 mls @ 100 mls/hr IVPB DAILY [facility] PRN Reason: Protocol Last Admin: 11/02/17 10:52 Dose: 100 mls/hr Azithromycin 500 mg/ Sodium (Chloride) 250 mls @ 250 mls/hr IVPB DAILY [facility] PRN Reason: Protocol Levothyroxine Sodium (Synthroid) 100 mcg PO DAILY [facility] Last Admin: 11/02/17 10:42 Dose: 100 mcg Megestrol Acetate (Megace) 400 mg PO DAILY [facility] Last Admin: 11/02/17 10:42 Dose: 400 mg Methylprednisolone (Solu-Medrol) 40 mg IV Q8 [facility] Last Admin: 11/02/17 06:57 Dose: 40 mg Pantoprazole Sodium (Protonix Ec Tab) 40 mg PO DAILY [facility] Last Admin: 11/02/17 10:42 Dose: 40 mg Fluticasone/Salmeterol (Advair Diskus 250/50) 1 puff INH RQ12 [facility] Last Admin: 11/02/17 10:23 Dose: Not Given Sucralfate (Carafate Oral Susp) 1 gm PO QID [facility] Last Admin: 11/02/17 10:41 Dose: 1 gm Tamsulosin HCl (Flomax) 0.4 mg PO DAILY [facility] Last Admin: 11/02/17 10:41 Dose: 0.4 mg Results - Vital Signs Recent Vital Signs: Last Vital Signs Temp 98.3 F 11/02/17 09:15 Pulse 84 11/02/17 10:24 Resp 18 11/02/17 10:24 BP 138/65 11/02/17 10:48 Pulse Ox 100 11/02/17 10:24 - Labs Result Diagrams: 11/01/17 22:26 11/01/17 22:26 Labs: Laboratory Results - last 24 hr 11/01/17 11/01/17 11/01/17 22:26 22:26 22:26 WBC 7.0 D RBC 3.16 L Hgb 8.2 L Hct 25.4 L MCV 80.4 MCH 25.9 L MCHC 32.2 L RDW 14.7 H Plt Count 282 MPV 7.1 L Neut % (Auto) 47.6 L Lymph % (Auto) 21.8 [place] % (Auto) 9.9 Eos % (Auto) 19.8 H Baso % (Auto) 0.9 Neut # (Auto) 3.3 Lymph # (Auto) 1.5 [place] # (Auto) 0.7 Eos # (Auto) 1.4 H Baso # (Auto) 0.1 PT 14.6 H INR 1.3 APTT 34 Sodium 137 Potassium 5.4 H Chloride 102 Carbon Dioxide 24 Anion Gap 17 BUN 43 H Creatinine 3.1 H Est GFR ( Amer) 23 Est GFR (Non-Af Amer) 19 Random Glucose 105 Calcium 8.2 L Total Bilirubin 0.3 AST 22 ALT 21 Alkaline Phosphatase 109 Total Creatine Kinase CK-MB (Mass) Troponin I < 0.0120 NT-Pro-B Natriuret Pep 6620 H Total Protein 6.5 Albumin 3.7 Globulin 2.8 Albumin/Globulin Ratio 1.3 11/02/17 06:28 WBC RBC Hgb Hct MCV MCH MCHC RDW Plt Count MPV Neut % (Auto) Lymph % (Auto) [place] % (Auto) Eos % (Auto) Baso % (Auto) Neut # (Auto) Lymph # (Auto) [place] # (Auto) Eos # (Auto) Baso # (Auto) PT INR APTT Sodium Potassium Chloride Carbon Dioxide Anion Gap BUN Creatinine Est GFR ( Amer) Est GFR (Non-Af Amer) Random Glucose Calcium Total Bilirubin AST ALT Alkaline Phosphatase Total Creatine Kinase 49 L CK-MB (Mass) 2.24 Troponin I < 0.0120 NT-Pro-B Natriuret Pep Total Protein Albumin Globulin Albumin/Globulin Ratio
--- NOTE | 2017-11-02 13:36 | CP.PCM.CON ---
History of Present Illness - History of Present Illness History of Present Illness: I was asked to evaluate patient by Dr Jayson jaime. Patient is a 87 year old male with a PMH colonic polyp s/p low anterior resection, HTN atrial fibrillation who presents with lower extremity edema. The patient states symptoms have been present for the last few days. He has noted dyspnea although currently symptoms have improved. previous echocardiogram was normal LV function Review of Systems - Constitutional Constitutional: absent: As Per HPI, Anorexia, Chills, Daytime Sleepiness, Excessive Sweating, Fatigue, Fever, Frequent Falls, Headache, Increased Appetite , Lethargy, Malaise, Night Sweats, Snoring, Sleep Apnea, Weight Gain, Weight Loss, Weakness, Other - EENT Eyes: absent: As Per HPI, Blind Spots, Blurred Vision, Change in Vision, Decreased Night Vision, Diplopia, Discharge, Dry Eye, Exophthalmos, Floaters, Irritation, Itchy Eyes, Loss of Peripheral Vision, Pain, Photophobia, Requires Corrective Lenses, Sees Flashes, Spots in Vision, Tunnel Vision, Other Visual Disturbances, Loss of Vision, Other Ears: absent: As Per HPI, Decreased Hearing, Ear Discharge, Ear Pain, Tinnitus, Abnormal Hearing, Disequilibrium, Dizziness, Other Nose/Mouth/Throat: absent: As Per HPI, Epistaxis, Nasal Congestion, Nasal Discharge, Nasal Obstruction, Nasal Trauma, Nose Pain, Post Nasal Drip, Sinus Pain, Sinus Pressure, Bleeding Gums, Change in Voice, Dental Pain, Dry Mouth, Dysphagia, Halitosis, Hoarsness, Lip Swelling, Mouth Lesions, Mouth Pain, Odynophagia, Sore Throat, Throat Swelling, Tongue Swelling, Facial Pain, Neck Pain, Neck Mass, Other - Cardiovascular Cardiovascular: Edema - Respiratory Respiratory: absent: As Per HPI, Cough, Dyspnea, Hemoptysis, Dyspnea on Exertion , Wheezing, Snoring, Stridor, Pain on Inspiration, Chest Congestion, Excessive Mucous Production, Change in Mucous Color, Pain with Coughing, Other - Gastrointestinal Gastrointestinal: absent: As Per HPI, Abdominal Pain, Belching, Bloating, Change in Bowel Habits, Change in Stool Character, Coffee Ground Emesis, Constipation, Cramping, Diarrhea, Dyspepsia, Dysphagia, Early Satiety, Excessive Flatus, Fecal Incontinence, Heartburn, Hematemesis, Hematochezia, Loose Stools, Melena, Nausea, Odynophagia, Temesmus, Vomiting, Other - Genitourinary Genitourinary: absent: As Per HPI, Change in Urinary Stream, Difficulty Urinating, Dysuria, Flank Pain, Hematuria, Pyuria, Nocturia, Urinary Incontinence, Urinary Frequency, Urinary Hesitance, Urinary Urgency, Voiding Freq/Small Amts, Freq UTI, Hx Renal/Bladder Calculi, Hx /Renal Surgery, Bladder Distension, Other - Musculoskeletal Musculoskeletal: absent: As Per HPI, Abnormal Gait, Arthralgias, Atrophy, Back Pain, Deformity, Joint Swelling, Limited Range of Motion, Loss of Height, Muscle Cramps, Muscle Weakness, Myalgias, Neck Pain, Numbness, Radiating Pain into Limb, Stiffness, Tingling, Other - Integumentary Integumentary: absent: As Per HPI, Acne, Alopecia, Bleeding Lesions, Change in Hair, Change in Nails, Change in Pigmentation, Changing Lesions, Dry Skin, Erythema, Furuncle, Hirsutism, Lesions, New Lesions, Non-Healing Lesions, Photosensitivity, Pruritus, Rash, Skin Pain, Skin Ulcer, Sores, Striae, Swelling , Unusual Bruising, Wounds, Jaundice, Other - Neurological Neurological: absent: As Per HPI, Abnormal Gait, Abnormal Hearing, Abnormal Movements, Abnormal Speech, Behavioral Changes, Burning Sensations, Confusion, Convulsions, Disequilibrium, Dizziness, Numbness, Focal Weakness, Frequent Falls , Headaches, Lack of Coordination, Loss of Vision, Memory Loss, Paresthesias, Radicular Pain, Restless Legs, Sensory Deficit, Syncope, Tingling, Tremor, Vertigo, Weakness, Other Visual Disturbances, Other - Psychiatric Psychiatric: absent: As Per HPI, Abnormal Sleep Pattern, Anhedonia, Anxiety, Auditory Hallucinations, Behavioral Changes, Change in Appetite, Change in Libido, Confusion, Depression, Difficulty Concentrating, Hallucinations, Homicidal Ideation, Hopelessness, Irritability, Memory Loss, Mood Swings, Panic Attacks, Paranoia, Suicidal Ideation, Visual Hallucinations, Tactile Hallucinations, Other - Endocrine Endocrine: absent: As Per HPI, Change in Body Appearance, Change in Libido, Cold Intolorance, Deepening of Voice, Excessive Sweating, Fatigue, Flushing, Heat Intolorance, Increase in Ring/Shoe/Hat Size, Palpitations, Polydipsia, Polyphagia, Polyuria, Other - Hematologic/Lymphatic Hematologic: absent: As Per HPI, Easy Bleeding, Easy Bruising, Lymphadenopathy, Other Past Patient History - Infectious Disease Hx of Infectious Diseases: None - Past Medical History & Family History Past Medical History?: Yes - Past Social History Smoking Status: Former Smoker - CARDIAC Hx Atrial Fibrillation: Yes Hx Congestive Heart Failure: Yes Hx Hypertension: Yes - PULMONARY Hx Bronchitis: Yes Hx Chronic Obstructive Pulmonary Disease (COPD): Yes Hx Emphysema: Yes Hx Pneumonia: Yes - NEUROLOGICAL Hx Neurological Disorder: No - HEENT Hx HEENT Problems: Yes Hx Cataracts: Yes - RENAL Hx Chronic Kidney Disease: No Hx Kidney Stones: No - ENDOCRINE/METABOLIC Hx Hypothyroidism: Yes - HEMATOLOGICAL/ONCOLOGICAL Hx Anemia: Yes Hx Human Immunodeficiency Virus (HIV): No Hx Sickle Cell Disease: No - INTEGUMENTARY Hx Dermatological Problems: No - MUSCULOSKELETAL/RHEUMATOLOGICAL Hx Arthritis: Yes (L HIP SURG) Hx Osteoporosis: Yes Hx Rheumatoid Arthritis: No - GASTROINTESTINAL Hx Crohn's Disease: No Hx Diverticulitis: No Hx Gall Bladder Disease: No Hx Gastritis: Yes Hx Pancreatitis: No - GENITOURINARY/GYNECOLOGICAL Hx Sexually Transmitted Disorders: No - PSYCHIATRIC Hx Anxiety: No Hx Bipolar Disorder: No Hx Depression: No Hx Post Traumatic Stress Disorder: No Hx Schizophrenia: No Hx Substance Use: No - SURGICAL HISTORY Hx Surgeries: Yes Hx Joint Replacement: Yes (left hip replacement) Hx Orthopedic Surgery: Yes (hip surgery) Other/Comment: colon resection 06/2016 - ANESTHESIA Hx Anesthesia: Yes Hx Anesthesia Reactions: No Hx Malignant Hyperthermia: No Meds Allergies/Adverse Reactions: Allergies Allergy/AdvReac Type Severity Reaction Status Date / Time No Known Allergies Allergy Verified 06/13/17 11:05 - Medications Medications: Current Medications Acetaminophen (Tylenol 325mg Tab) 2 mg PO Q4 PRN PRN Reason: Pain, Mild (1-3) Albuterol/Ipratropium (Duoneb 3 Mg/0.5 Mg (3 Ml) Ud) 3 ml INH RQ6 [facility] Last Admin: 11/02/17 08:30 Dose: 3 ml Carvedilol (Coreg) 3.125 mg PO BID [facility] Last Admin: 11/02/17 10:41 Dose: 3.125 mg Donepezil HCl (Aricept) 10 mg PO HS [facility] Enoxaparin Sodium (Lovenox) 40 mg SC DAILY [facility] Last Admin: 11/02/17 10:50 Dose: 40 mg Ferrous Sulfate (Feosol) 325 mg PO DAILY [facility] Last Admin: 11/02/17 10:41 Dose: 325 mg Folic Acid (Folic Acid) 1 mg PO DAILY [facility] Last Admin: 11/02/17 10:42 Dose: 1 mg Furosemide (Lasix) 40 mg IVP DAILY [facility] Last Admin: 11/02/17 10:48 Dose: 40 mg Ceftriaxone Sodium 1 gm/ (Sodium Chloride) 100 mls @ 100 mls/hr IVPB DAILY [facility] PRN Reason: Protocol Last Admin: 11/02/17 10:52 Dose: 100 mls/hr Azithromycin 500 mg/ Sodium (Chloride) 250 mls @ 250 mls/hr IVPB DAILY [facility] PRN Reason: Protocol Levothyroxine Sodium (Synthroid) 100 mcg PO DAILY [facility] Last Admin: 11/02/17 10:42 Dose: 100 mcg Megestrol Acetate (Megace) 400 mg PO DAILY [facility] Last Admin: 11/02/17 10:42 Dose: 400 mg Methylprednisolone (Solu-Medrol) 40 mg IV Q8 [facility] Last Admin: 11/02/17 06:57 Dose: 40 mg Pantoprazole Sodium (Protonix Ec Tab) 40 mg PO DAILY [facility] Last Admin: 11/02/17 10:42 Dose: 40 mg Fluticasone/Salmeterol (Advair Diskus 250/50) 1 puff INH RQ12 [facility] Last Admin: 11/02/17 10:23 Dose: Not Given Sucralfate (Carafate Oral Susp) 1 gm PO QID [facility] Last Admin: 11/02/17 10:41 Dose: 1 gm Tamsulosin HCl (Flomax) 0.4 mg PO DAILY [facility] Last Admin: 11/02/17 10:41 Dose: 0.4 mg Physical Exam - Constitutional Appears: Non-toxic - Head Exam Head Exam: NORMAL INSPECTION - Eye Exam Eye Exam: Normal appearance - ENT Exam ENT Exam: Mucous Membranes Moist - Neck Exam Neck exam: Positive for: Normal Inspection - Respiratory Exam Respiratory Exam: Decreased Breath Sounds - Cardiovascular Exam Cardiovascular Exam: REGULAR RHYTHM - GI/Abdominal Exam GI & Abdominal Exam: Normal Bowel Sounds - Rectal Exam Rectal Exam: Deferred - Extremities Exam Extremities exam: Positive for: pedal edema - Back Exam Back exam: NORMAL INSPECTION - Neurological Exam Neurological exam: Alert, Oriented x3 - Psychiatric Exam Psychiatric exam: Normal Affect - Skin Skin Exam: Normal Color Results - Vital Signs Recent Vital Signs: Last Vital Signs Temp 98.3 F 11/02/17 09:15 Pulse 84 11/02/17 10:24 Resp 18 11/02/17 10:24 BP 138/65 11/02/17 10:48 Pulse Ox 100 11/02/17 10:24 - Labs Result Diagrams: 11/01/17 22:26 11/01/17 22:26 Labs: Laboratory Results - last 24 hr 11/01/17 11/01/17 11/01/17 22:26 22:26 22:26 WBC 7.0 D RBC 3.16 L Hgb 8.2 L Hct 25.4 L MCV 80.4 MCH 25.9 L MCHC 32.2 L RDW 14.7 H Plt Count 282 MPV 7.1 L Neut % (Auto) 47.6 L Lymph % (Auto) 21.8 [place] % (Auto) 9.9 Eos % (Auto) 19.8 H Baso % (Auto) 0.9 Neut # (Auto) 3.3 Lymph # (Auto) 1.5 [place] # (Auto) 0.7 Eos # (Auto) 1.4 H Baso # (Auto) 0.1 PT 14.6 H INR 1.3 APTT 34 Sodium 137 Potassium 5.4 H Chloride 102 Carbon Dioxide 24 Anion Gap 17 BUN 43 H Creatinine 3.1 H Est GFR ( Amer) 23 Est GFR (Non-Af Amer) 19 Random Glucose 105 Calcium 8.2 L Total Bilirubin 0.3 AST 22 ALT 21 Alkaline Phosphatase 109 Total Creatine Kinase CK-MB (Mass) Troponin I < 0.0120 NT-Pro-B Natriuret Pep 6620 H Total Protein 6.5 Albumin 3.7 Globulin 2.8 Albumin/Globulin Ratio 1.3 11/02/17 06:28 WBC RBC Hgb Hct MCV MCH MCHC RDW Plt Count MPV Neut % (Auto) Lymph % (Auto) [place] % (Auto) Eos % (Auto) Baso % (Auto) Neut # (Auto) Lymph # (Auto) [place] # (Auto) Eos # (Auto) Baso # (Auto) PT INR APTT Sodium Potassium Chloride Carbon Dioxide Anion Gap BUN Creatinine Est GFR ( Amer) Est GFR (Non-Af Amer) Random Glucose Calcium Total Bilirubin AST ALT Alkaline Phosphatase Total Creatine Kinase 49 L CK-MB (Mass) 2.24 Troponin I < 0.0120 NT-Pro-B Natriuret Pep Total Protein Albumin Globulin Albumin/Globulin Ratio - EKG Data EKG Interpreted by: Myself EKG shows normal: Sinus rhythm Assessment & Plan (1) Leg edema Assessment and Plan: may also be related to renal failure. can use diuretic therapy, but must remain cautious given renal insufficiency Status: Acute (2) Acute on chronic renal failure Assessment and Plan: follow creatinine Status: Acute (3) Hypertension Assessment and Plan: blood pressure control. avoid nephrotoxic agents Status: Chronic (4) CHF (congestive heart failure) Assessment and Plan: elevated pro BNP. will need to reevaluate LV function. echocardiogram Status: Acute
[2017-11-02] MEDS: Azithromycin 500 MG in Sodium Chloride 0.9% 250 ML IVPB SCH (14:17)
--- NOTE | 2017-11-02 14:56 | CP.PCM.HP ---
History of Present Illness - History of Present Illness History of Present Illness: 87 yr old tajik male with h.o copd chf multiple admission with element of dementia nad ams cameitwh sob and ches tpainn with out fever/chills soketo dashaneeer eventually pt was brought ot hosp for sob pt recieved alsix with some good output and felt better no other ocmplaints Present on Admission - Present on Admission Any Indicators Present on Admission: No Past Patient History - Infectious Disease Hx of Infectious Diseases: None - Past Medical History & Family History Past Medical History?: Yes - Past Social History Smoking Status: Former Smoker - CARDIAC Hx Atrial Fibrillation: Yes Hx Congestive Heart Failure: Yes Hx Hypertension: Yes - PULMONARY Hx Bronchitis: Yes Hx Chronic Obstructive Pulmonary Disease (COPD): Yes Hx Emphysema: Yes Hx Pneumonia: Yes - NEUROLOGICAL Hx Neurological Disorder: No - HEENT Hx HEENT Problems: Yes Hx Cataracts: Yes - RENAL Hx Chronic Kidney Disease: No Hx Kidney Stones: No - ENDOCRINE/METABOLIC Hx Hypothyroidism: Yes - HEMATOLOGICAL/ONCOLOGICAL Hx Anemia: Yes Hx Human Immunodeficiency Virus (HIV): No Hx Sickle Cell Disease: No - INTEGUMENTARY Hx Dermatological Problems: No - MUSCULOSKELETAL/RHEUMATOLOGICAL Hx Arthritis: Yes (L HIP SURG) Hx Osteoporosis: Yes Hx Rheumatoid Arthritis: No - GASTROINTESTINAL Hx Crohn's Disease: No Hx Diverticulitis: No Hx Gall Bladder Disease: No Hx Gastritis: Yes Hx Pancreatitis: No - GENITOURINARY/GYNECOLOGICAL Hx Sexually Transmitted Disorders: No - PSYCHIATRIC Hx Anxiety: No Hx Bipolar Disorder: No Hx Depression: No Hx Post Traumatic Stress Disorder: No Hx Schizophrenia: No Hx Substance Use: No - SURGICAL HISTORY Hx Surgeries: Yes Hx Joint Replacement: Yes (left hip replacement) Hx Orthopedic Surgery: Yes (hip surgery) Other/Comment: colon resection 06/2016 - ANESTHESIA Hx Anesthesia: Yes Hx Anesthesia Reactions: No Hx Malignant Hyperthermia: No Meds Home Medications: Home Medication List Medication Instructions Recorded Confirmed Type predniSONE [Prednisone] 10 mg PO DAILY #10 tab 11/05/17 Rx Allergies/Adverse Reactions: Allergies Allergy/AdvReac Type Severity Reaction Status Date / Time No Known Allergies Allergy Verified 06/13/17 11:05 Physical Exam - Constitutional Appears: Well - Head Exam Head Exam: ATRAUMATIC, NORMAL INSPECTION, NORMOCEPHALIC - Eye Exam Eye Exam: EOMI, Normal appearance, PERRL Pupil Exam: NORMAL ACCOMODATION, PERRL - ENT Exam ENT Exam: Mucous Membranes Moist, Normal Exam - Neck Exam Neck exam: Positive for: Normal Inspection - Respiratory Exam Respiratory Exam: Decreased Breath Sounds - Cardiovascular Exam Cardiovascular Exam: REGULAR RHYTHM, +S1, +S2 - GI/Abdominal Exam GI & Abdominal Exam: Diminished Bowel Sounds, Soft - Rectal Exam Rectal Exam: Deferred Results - Vital Signs Recent Vital Signs: Last Vital Signs Temp 98.7 F 11/02/17 13:44 Pulse 99 H 11/02/17 13:44 Resp 18 11/02/17 13:44 BP 137/72 11/02/17 13:44 Pulse Ox 99 11/02/17 13:44 - Labs Result Diagrams: 11/05/17 13:54 11/05/17 13:54 Labs: Laboratory Results - last 24 hr 11/01/17 11/01/17 11/01/17 22:26 22:26 22:26 WBC 7.0 D RBC 3.16 L Hgb 8.2 L Hct 25.4 L MCV 80.4 MCH 25.9 L MCHC 32.2 L RDW 14.7 H Plt Count 282 MPV 7.1 L Neut % (Auto) 47.6 L Lymph % (Auto) 21.8 [place] % (Auto) 9.9 Eos % (Auto) 19.8 H Baso % (Auto) 0.9 Neut # (Auto) 3.3 Lymph # (Auto) 1.5 [place] # (Auto) 0.7 Eos # (Auto) 1.4 H Baso # (Auto) 0.1 PT 14.6 H INR 1.3 APTT 34 Sodium 137 Potassium 5.4 H Chloride 102 Carbon Dioxide 24 Anion Gap 17 BUN 43 H Creatinine 3.1 H Est GFR ( Amer) 23 Est GFR (Non-Af Amer) 19 Random Glucose 105 Calcium 8.2 L Total Bilirubin 0.3 AST 22 ALT 21 Alkaline Phosphatase 109 Total Creatine Kinase CK-MB (Mass) Troponin I < 0.0120 NT-Pro-B Natriuret Pep 6620 H Total Protein 6.5 Albumin 3.7 Globulin 2.8 Albumin/Globulin Ratio 1.3 11/02/17 06:28 WBC RBC Hgb Hct MCV MCH MCHC RDW Plt Count MPV Neut % (Auto) Lymph % (Auto) [place] % (Auto) Eos % (Auto) Baso % (Auto) Neut # (Auto) Lymph # (Auto) [place] # (Auto) Eos # (Auto) Baso # (Auto) PT INR APTT Sodium Potassium Chloride Carbon Dioxide Anion Gap BUN Creatinine Est GFR ( Amer) Est GFR (Non-Af Amer) Random Glucose Calcium Total Bilirubin AST ALT Alkaline Phosphatase Total Creatine Kinase 49 L CK-MB (Mass) 2.24 Troponin I < 0.0120 NT-Pro-B Natriuret Pep Total Protein Albumin Globulin Albumin/Globulin Ratio Assessment & Plan (1) CHF (congestive heart failure) Status: Acute (2) Leg edema Status: Acute (3) NOEMI (acute kidney injury) Status: Acute (4) Abdominal pain Status: Acute (5) Acute CHF Status: Acute (6) Acute on chronic renal failure Status: Acute (7) Anemia Status: Acute (8) Anemia Status: Acute (9) Antral gastritis Status: Acute (10) Back pain Status: Acute (11) Chest pain Status: Acute (12) Chest pain Status: Acute (13) Coagulopathy Status: Acute (14) Coffee ground emesis Status: Acute (15) Colon cancer Status: Acute (16) Constipation Status: Acute (17) Contusion Status: Acute (18) Dehydration Status: Acute (19) Disorder of mediastinum Status: Acute (20) Dyspnea Status: Acute (21) Fall Status: Acute (22) GI bleed Status: Acute (23) Gastritis Status: Acute (24) Gastritis Status: Acute (25) Gouty arthritis Status: Acute (26) Heart failure Status: Acute (27) Hyperkalemia Status: Acute (28) Hypotension Status: Acute (29) Hypotension Status: Acute (30) Leukocytosis Status: Acute (31) Leukocytosis Status: Acute (32) Leukocytosis Status: Acute (33) Lung nodule < 6cm on CT Status: Acute (34) Mass of colon Status: Acute (35) Nausea Status: Acute (36) Pleural effusion Status: Acute (37) Pneumonia Status: Acute (38) Pneumonia Status: Acute (39) Pneumonia Status: Acute (40) Prophylactic measure Status: Acute (41) Rheumatoid arthritis Status: Acute (42) Severe dehydration Status: Acute (43) Skin tear of elbow without complication Status: Acute (44) Wedge compression fracture of T9 vertebra Status: Acute (45) Atrial fibrillation with rapid ventricular response Status: Chronic (46) COPD (chronic obstructive pulmonary disease) Status: Chronic (47) Hypertension Status: Chronic (48) Renal insufficiency Status: Chronic - Assessment and Plan (Free Text) Plan: duoneb pulm cardio iv antibiotc lasix gi dvt prpohylaxis cbc cmp labs seen as ordered
--- NOTE | 2017-11-02 14:56 | CP.PCM.PN ---
Subjective - Date & Time of Evaluation Date of Evaluation: 11/02/17 Time of Evaluation: 10:40 - Subjective Subjective: clinically same Objective - Vital Signs/Intake and Output Vital Signs (last 24 hours): Temp Pulse Resp BP Pulse Ox 98.7 F 99 H 18 137/72 99 11/02/17 13:44 11/02/17 13:44 11/02/17 13:44 11/02/17 13:44 11/02/17 13:44 Intake and Output: 11/02/17 11/02/17 06:59 18:59 Intake Total 80 Output Total 450 Balance -370 - Medications Medications: Current Medications Acetaminophen (Tylenol 325mg Tab) 2 mg PO Q4 PRN PRN Reason: Pain, Mild (1-3) Albuterol/Ipratropium (Duoneb 3 Mg/0.5 Mg (3 Ml) Ud) 3 ml INH RQ6 [facility] Last Admin: 11/02/17 08:30 Dose: 3 ml Carvedilol (Coreg) 3.125 mg PO BID [facility] Last Admin: 11/02/17 10:41 Dose: 3.125 mg Donepezil HCl (Aricept) 10 mg PO [facility] Enoxaparin Sodium (Lovenox) 40 mg SC DAILY [facility] Last Admin: 11/02/17 10:50 Dose: 40 mg Ferrous Sulfate (Feosol) 325 mg PO DAILY [facility] Last Admin: 11/02/17 10:41 Dose: 325 mg Folic Acid (Folic Acid) 1 mg PO DAILY [facility] Last Admin: 11/02/17 10:42 Dose: 1 mg Furosemide (Lasix) 40 mg IVP DAILY [facility] Last Admin: 11/02/17 10:48 Dose: 40 mg Ceftriaxone Sodium 1 gm/ (Sodium Chloride) 100 mls @ 100 mls/hr IVPB DAILY [facility] PRN Reason: Protocol Last Admin: 11/02/17 10:52 Dose: 100 mls/hr Azithromycin 500 mg/ Sodium (Chloride) 250 mls @ 250 mls/hr IVPB DAILY [facility] PRN Reason: Protocol Last Admin: 11/02/17 14:17 Dose: 250 mls/hr Levothyroxine Sodium (Synthroid) 100 mcg PO DAILY [facility] Last Admin: 11/02/17 10:42 Dose: 100 mcg Megestrol Acetate (Megace) 400 mg PO DAILY [facility] Last Admin: 11/02/17 10:42 Dose: 400 mg Methylprednisolone (Solu-Medrol) 40 mg IV Q8 [facility] Last Admin: 11/02/17 06:57 Dose: 40 mg Pantoprazole Sodium (Protonix Ec Tab) 40 mg PO DAILY [facility] Last Admin: 11/02/17 10:42 Dose: 40 mg Fluticasone/Salmeterol (Advair Diskus 250/50) 1 puff INH RQ12 [facility] Last Admin: 11/02/17 10:23 Dose: Not Given Sucralfate (Carafate Oral Susp) 1 gm PO QID [facility] Last Admin: 11/02/17 10:41 Dose: 1 gm Tamsulosin HCl (Flomax) 0.4 mg PO DAILY [facility] Last Admin: 11/02/17 10:41 Dose: 0.4 mg - Labs Labs: 11/01/17 22:26 11/01/17 22:26 PT 14.6 SECONDS (9.7-12.2) H 11/01/17 22:26 INR 1.3 11/01/17 22:26 APTT 34 SECONDS (21-34) 11/01/17 22:26 - Constitutional Appears: Well - Head Exam Head Exam: ATRAUMATIC, NORMAL INSPECTION, NORMOCEPHALIC - Eye Exam Eye Exam: EOMI, Normal appearance, PERRL Pupil Exam: NORMAL ACCOMODATION, PERRL - ENT Exam ENT Exam: Mucous Membranes Moist, Normal Exam - Neck Exam Neck Exam: Full ROM, Normal Inspection. absent: Lymphadenopathy - Respiratory Exam Respiratory Exam: Decreased Breath Sounds - Cardiovascular Exam Cardiovascular Exam: REGULAR RHYTHM, +S1, +S2 - GI/Abdominal Exam GI & Abdominal Exam: Soft, Diminished Bowel Sounds - Rectal Exam Rectal Exam: Deferred
[2017-11-02 16:27] LABS: CK-MB 1.87 ng/mL (0.0-3.38)
--- NOTE | 2017-11-02 16:45 | RAD ---
PROCEDURE: CHEST RADIOGRAPH, 1 VIEW HISTORY: SOB COMPARISON: 06/13/2017. FINDINGS: LUNGS: The lungs are hyperinflated and there is peribronchial thickening with chronic changes in both lungs. No focal consolidation. PLEURA: No pneumothorax or pleural fluid seen. CARDIOVASCULAR: Normal. OSSEOUS STRUCTURES: No significant abnormalities. VISUALIZED UPPER ABDOMEN: Normal. OTHER FINDINGS: None. IMPRESSION: No active pulmonary disease. COPD.
[2017-11-02] MEDS ORDERED: Sucralfate 1 gm/10 ml Oral Susp UD ONE (21:29)
[2017-11-03] MEDS: Albuterol-Ipratrop 3 mg / 0.5 (3 ml) UD INH SCH ×5 (01:57→19:12)
[2017-11-03] MEDS ORDERED: Albuterol-Ipratrop 3 mg / 0.5 (3 ml) UD ONE (01:58)
[2017-11-03 06:49] VITALS: BMI 20.6
--- NOTE | 2017-11-03 07:42 | CP.PCM.PN ---
Subjective - Date & Time of Evaluation Date of Evaluation: 11/03/17 Time of Evaluation: 07:30 - Subjective Subjective: no new complaints. Objective - Vital Signs/Intake and Output Vital Signs (last 24 hours): Temp Pulse Resp BP Pulse Ox 98.8 F 87 16 149/66 100 11/03/17 05:17 11/03/17 05:17 11/03/17 05:17 11/03/17 05:17 11/03/17 05:17 Intake and Output: 11/03/17 11/03/17 06:59 18:59 Output Total 200 Balance -200 - Medications Medications: Current Medications Acetaminophen (Tylenol 325mg Tab) 2 mg PO Q4 PRN PRN Reason: Pain, Mild (1-3) Albuterol/Ipratropium (Duoneb 3 Mg/0.5 Mg (3 Ml) Ud) 3 ml INH RQ6 [facility] Last Admin: 11/03/17 07:26 Dose: 3 ml Carvedilol (Coreg) 3.125 mg PO BID [facility] Last Admin: 11/02/17 18:20 Dose: 3.125 mg Donepezil HCl (Aricept) 10 mg PO HS [facility] Last Admin: 11/02/17 22:03 Dose: 10 mg Enoxaparin Sodium (Lovenox) 40 mg SC DAILY [facility] Last Admin: 11/02/17 10:50 Dose: 40 mg Ferrous Sulfate (Feosol) 325 mg PO DAILY [facility] Last Admin: 11/02/17 10:41 Dose: 325 mg Folic Acid (Folic Acid) 1 mg PO DAILY [facility] Last Admin: 11/02/17 10:42 Dose: 1 mg Furosemide (Lasix) 40 mg IVP DAILY [facility] Last Admin: 11/02/17 10:48 Dose: 40 mg Ceftriaxone Sodium 1 gm/ (Sodium Chloride) 100 mls @ 100 mls/hr IVPB DAILY [facility] PRN Reason: Protocol Last Admin: 11/02/17 10:52 Dose: 100 mls/hr Azithromycin 500 mg/ Sodium (Chloride) 250 mls @ 250 mls/hr IVPB DAILY [facility] PRN Reason: Protocol Last Admin: 11/02/17 14:17 Dose: 250 mls/hr Levothyroxine Sodium (Synthroid) 100 mcg PO DAILY [facility] Last Admin: 11/02/17 10:42 Dose: 100 mcg Megestrol Acetate (Megace) 400 mg PO DAILY [facility] Last Admin: 11/02/17 10:42 Dose: 400 mg Methylprednisolone (Solu-Medrol) 40 mg IV Q8 [facility] Last Admin: 11/03/17 06:21 Dose: 40 mg Pantoprazole Sodium (Protonix Ec Tab) 40 mg PO DAILY [facility] Last Admin: 11/02/17 10:42 Dose: 40 mg Fluticasone/Salmeterol (Advair Diskus 250/50) 1 puff INH RQ12 [facility] Last Admin: 11/02/17 20:05 Dose: Not Given Sucralfate (Carafate Oral Susp) 1 gm PO QID [facility] Last Admin: 11/02/17 22:03 Dose: 1 gm Tamsulosin HCl (Flomax) 0.4 mg PO DAILY [facility] Last Admin: 11/02/17 10:41 Dose: 0.4 mg - Labs Labs: 11/01/17 22:26 11/01/17 22:26 PT 14.6 SECONDS (9.7-12.2) H 11/01/17 22:26 INR 1.3 11/01/17 22:26 APTT 34 SECONDS (21-34) 11/01/17 22:26 - Constitutional Appears: Non-toxic - Head Exam Head Exam: NORMAL INSPECTION - Eye Exam Eye Exam: Normal appearance - ENT Exam ENT Exam: Mucous Membranes Moist - Neck Exam Neck Exam: Full ROM - Respiratory Exam Respiratory Exam: NORMAL BREATHING PATTERN - Cardiovascular Exam Cardiovascular Exam: REGULAR RHYTHM - GI/Abdominal Exam GI & Abdominal Exam: Normal Bowel Sounds - Rectal Exam Rectal Exam: Deferred - Extremities Exam Extremities Exam: Pedal Edema - Back Exam Back Exam: NORMAL INSPECTION - Neurological Exam Neurological Exam: Alert - Psychiatric Exam Psychiatric exam: Normal Affect - Skin Skin Exam: Normal Color Assessment and Plan (1) Leg edema Assessment & Plan: on diuretic therapy Status: Acute (2) Acute on chronic renal failure Status: Acute (3) Hypertension Status: Chronic (4) CHF (congestive heart failure) Assessment & Plan: await echo Status: Acute
[2017-11-03] MEDS: Enoxaparin 40 mg Syringe SC SCH (09:17)
[2017-11-03] MEDS: Pantoprazole 40 mg EC Tab PO SCH (09:18)
[2017-11-03] MEDS: Levothyroxine 100 MCG TAB PO SCH (09:18)
[2017-11-03] MEDS: Megestrol Acetate 40 mg/ml Cup PO SCH (09:18)
[2017-11-03] MEDS: Sucralfate 1 gm/10 ml Oral Susp UD PO SCH ×4 (09:19→21:25)
[2017-11-03] MEDS: Azithromycin 500 MG in Sodium Chloride 0.9% 250 ML IVPB SCH (09:47)
[2017-11-03] MEDS: Fluticasone-Salmeterol 250-50mcg Diskus INH SCH ×2 (13:14→19:11)
--- NOTE | 2017-11-03 15:58 | CP.PCM.PN ---
Subjective - Date & Time of Evaluation Date of Evaluation: 11/03/17 Time of Evaluation: 11:20 - Subjective Subjective: clinically same Objective - Vital Signs/Intake and Output Vital Signs (last 24 hours): Temp Pulse Resp BP Pulse Ox 98.5 F 81 16 147/56 L 100 11/03/17 12:00 11/03/17 10:00 11/03/17 05:17 11/03/17 09:17 11/03/17 12:00 Intake and Output: 11/03/17 11/03/17 06:59 18:59 Output Total 200 Balance -200 - Medications Medications: Current Medications Acetaminophen (Tylenol 325mg Tab) 325 mg PO Q4 PRN PRN Reason: Pain, Mild (1-3) Albuterol/Ipratropium (Duoneb 3 Mg/0.5 Mg (3 Ml) Ud) 3 ml INH RQ6 [facility] Last Admin: 11/03/17 13:13 Dose: 3 ml Carvedilol (Coreg) 3.125 mg PO BID [facility] Last Admin: 11/03/17 09:18 Dose: 3.125 mg Donepezil HCl (Aricept) 10 mg PO HS [facility] Last Admin: 11/02/17 22:03 Dose: 10 mg Enoxaparin Sodium (Lovenox) 40 mg SC DAILY [facility] Last Admin: 11/03/17 09:17 Dose: 40 mg Ferrous Sulfate (Feosol) 325 mg PO DAILY [facility] Last Admin: 11/03/17 09:17 Dose: 325 mg Folic Acid (Folic Acid) 1 mg PO DAILY [facility] Last Admin: 11/03/17 09:18 Dose: 1 mg Furosemide (Lasix) 40 mg IVP DAILY [facility] Last Admin: 11/03/17 09:17 Dose: 40 mg Azithromycin 500 mg/ Sodium (Chloride) 250 mls @ 250 mls/hr IVPB DAILY [facility] PRN Reason: Protocol Last Admin: 11/03/17 09:47 Dose: 250 mls/hr Levothyroxine Sodium (Synthroid) 100 mcg PO DAILY [facility] Last Admin: 11/03/17 09:18 Dose: 100 mcg Megestrol Acetate (Megace) 400 mg PO DAILY [facility] Last Admin: 11/03/17 09:18 Dose: 400 mg Methylprednisolone (Solu-Medrol) 40 mg IV Q8 [facility] Last Admin: 11/03/17 14:04 Dose: 40 mg Pantoprazole Sodium (Protonix Ec Tab) 40 mg PO DAILY [facility] Last Admin: 11/03/17 09:18 Dose: 40 mg Fluticasone/Salmeterol (Advair Diskus 250/50) 1 puff INH RQ12 [facility] Last Admin: 11/03/17 13:14 Dose: Not Given Sucralfate (Carafate Oral Susp) 1 gm PO QID [facility] Last Admin: 11/03/17 14:00 Dose: 1 gm Tamsulosin HCl (Flomax) 0.4 mg PO DAILY [facility] Last Admin: 11/03/17 09:18 Dose: 0.4 mg - Labs Labs: 11/01/17 22:26 11/01/17 22:26 PT 14.6 SECONDS (9.7-12.2) H 11/01/17 22:26 INR 1.3 11/01/17 22:26 APTT 34 SECONDS (21-34) 11/01/17 22:26 - Constitutional Appears: Well - Head Exam Head Exam: ATRAUMATIC, NORMAL INSPECTION, NORMOCEPHALIC - Eye Exam Eye Exam: EOMI, Normal appearance, PERRL Pupil Exam: NORMAL ACCOMODATION, PERRL - ENT Exam ENT Exam: Mucous Membranes Moist, Normal Exam - Neck Exam Neck Exam: Full ROM, Normal Inspection. absent: Lymphadenopathy - Respiratory Exam Respiratory Exam: Decreased Breath Sounds - Cardiovascular Exam Cardiovascular Exam: REGULAR RHYTHM, +S1, +S2 - GI/Abdominal Exam GI & Abdominal Exam: Soft, Diminished Bowel Sounds - Rectal Exam Rectal Exam: Deferred Assessment and Plan (1) CHF (congestive heart failure) Status: Acute (2) Leg edema Status: Acute (3) NOEMI (acute kidney injury) Status: Acute (4) Abdominal pain Status: Acute (5) Acute CHF Status: Acute (6) Acute on chronic renal failure Status: Acute (7) Anemia Status: Acute (8) Anemia Status: Acute (9) Antral gastritis Status: Acute (10) Back pain Status: Acute (11) Chest pain Status: Acute (12) Chest pain Status: Acute (13) Coagulopathy Status: Acute (14) Coffee ground emesis Status: Acute (15) Colon cancer Status: Acute (16) Constipation Status: Acute (17) Contusion Status: Acute (18) Dehydration Status: Acute (19) Disorder of mediastinum Status: Acute (20) Dyspnea Status: Acute (21) Fall Status: Acute (22) GI bleed Status: Acute (23) Gastritis Status: Acute (24) Gastritis Status: Acute (25) Gouty arthritis Status: Acute (26) Heart failure Status: Acute (27) Hyperkalemia Status: Acute (28) Hypotension Status: Acute (29) Hypotension Status: Acute (30) Leukocytosis Status: Acute (31) Leukocytosis Status: Acute (32) Leukocytosis Status: Acute (33) Lung nodule < 6cm on CT Status: Acute (34) Mass of colon Status: Acute (35) Nausea Status: Acute (36) Pleural effusion Status: Acute (37) Pneumonia Status: Acute (38) Pneumonia Status: Acute (39) Pneumonia Status: Acute (40) Prophylactic measure Status: Acute (41) Rheumatoid arthritis Status: Acute (42) Severe dehydration Status: Acute (43) Skin tear of elbow without complication Status: Acute (44) Wedge compression fracture of T9 vertebra Status: Acute (45) Atrial fibrillation with rapid ventricular response Status: Chronic (46) COPD (chronic obstructive pulmonary disease) Status: Chronic (47) Hypertension Status: Chronic (48) Renal insufficiency Status: Chronic - Assessment and Plan (Free Text) Plan: I had DuoNeb IV azithromycin Megace Solu-Medrol Protonix GI prophylaxis DVT prophylaxis Follow-up with the consultations IV Lasix
[2017-11-04] MEDS: Albuterol-Ipratrop 3 mg / 0.5 (3 ml) UD INH SCH ×3 (01:09→14:05)
[2017-11-04] MEDS: Sucralfate 1 gm/10 ml Oral Susp UD PO SCH ×4 (09:28→21:34)
[2017-11-04] MEDS: Megestrol Acetate 40 mg/ml Cup PO SCH (09:28)
[2017-11-04] MEDS: Enoxaparin 40 mg Syringe SC SCH (09:28)
[2017-11-04] MEDS: Pantoprazole 40 mg EC Tab PO SCH (09:28)
[2017-11-04] MEDS: Azithromycin 500 MG in Sodium Chloride 0.9% 250 ML IVPB SCH (09:46)
[2017-11-04] MEDS: Levothyroxine 100 MCG TAB PO SCH (09:46)
[2017-11-04] MEDS: Fluticasone-Salmeterol 250-50mcg Diskus INH SCH (13:50)
--- NOTE | 2017-11-04 16:16 | CARD ---
APPROVED REPORT EXAM: Two-dimensional and M-mode echocardiogram with Doppler and color Doppler. Other Information Quality : Technically LimitedRhythm : NSR INDICATION Atrial Fibrillation Congestive Heart Failure COPD RISK FACTORS Hypertension M-Mode DIMENSIONS Left Atrium (MM)3.67 (2.5-4.0cm)Aortic Root3.20 (2.2-3.7cm) Aortic Cusp Exc.2.03 (1.5-2.0cm) Aortic Valve AoV Peak [place]289.5cm/[place] Peak GR.8mmHg Mitral Valve MV E Toobxhye41.8cm/sMV A Yipwxphr803.2cm/sE/A ratio0.8 TDI E/Lateral E'0.0E/Medial E'0.0 Tricuspid Valve TR Peak [id number]/sTR Peak Gr.[id number] <Conclusion> poor window. lv is off axis. only 4 chamber views are adequate., la,lv & ra rv size appears normal. lvef is more than 70%. lv diastolic dysfunciton grade one. mitral & tv appears nromal. aortic root appears normal size. no pericardial effusion seen.
--- NOTE | 2017-11-04 20:51 | CP.PCM.PN ---
Subjective - Date & Time of Evaluation Date of Evaluation: 11/04/17 Time of Evaluation: 08:00 - Subjective Subjective: clinically same Objective - Vital Signs/Intake and Output Vital Signs (last 24 hours): Temp Pulse Resp BP Pulse Ox 98.8 F 84 20 103/58 L 98 11/04/17 16:00 11/04/17 16:00 11/04/17 16:00 11/04/17 16:00 11/04/17 16:00 Intake and Output: 11/04/17 11/05/17 18:59 06:59 Intake Total 110 Balance 110 - Medications Medications: Current Medications Acetaminophen (Tylenol 325mg Tab) 325 mg PO Q4 PRN PRN Reason: Pain, Mild (1-3) Albuterol/Ipratropium (Duoneb 3 Mg/0.5 Mg (3 Ml) Ud) 3 ml INH RQ6 [facility] Last Admin: 11/04/17 14:05 Dose: 3 ml Carvedilol (Coreg) 3.125 mg PO BID [facility] Last Admin: 11/04/17 17:23 Dose: 3.125 mg Donepezil HCl (Aricept) 10 mg PO HS [facility] Last Admin: 11/03/17 21:25 Dose: 10 mg Enoxaparin Sodium (Lovenox) 40 mg SC DAILY [facility] Last Admin: 11/04/17 09:28 Dose: 40 mg Ferrous Sulfate (Feosol) 325 mg PO DAILY [facility] Last Admin: 11/04/17 09:28 Dose: 325 mg Folic Acid (Folic Acid) 1 mg PO DAILY [facility] Last Admin: 11/04/17 09:28 Dose: 1 mg Furosemide (Lasix) 40 mg IVP DAILY [facility] Last Admin: 11/04/17 09:27 Dose: 40 mg Azithromycin 500 mg/ Sodium (Chloride) 250 mls @ 250 mls/hr IVPB DAILY [facility] PRN Reason: Protocol Last Admin: 11/04/17 09:46 Dose: 250 mls/hr Levothyroxine Sodium (Synthroid) 100 mcg PO DAILY [facility] Last Admin: 11/04/17 09:46 Dose: 100 mcg Megestrol Acetate (Megace) 400 mg PO DAILY [facility] Last Admin: 11/04/17 09:28 Dose: 400 mg Methylprednisolone (Solu-Medrol) 40 mg IV Q8 [facility] Last Admin: 11/04/17 13:35 Dose: 40 mg Pantoprazole Sodium (Protonix Ec Tab) 40 mg PO DAILY [facility] Last Admin: 11/04/17 09:28 Dose: 40 mg Fluticasone/Salmeterol (Advair Diskus 250/50) 1 puff INH RQ12 [facility] Last Admin: 11/04/17 13:50 Dose: Not Given Sucralfate (Carafate Oral Susp) 1 gm PO QID [facility] Last Admin: 11/04/17 17:23 Dose: 1 gm Tamsulosin HCl (Flomax) 0.4 mg PO DAILY [facility] Last Admin: 11/04/17 09:28 Dose: 0.4 mg - Labs Labs: 11/01/17 22:26 11/01/17 22:26 PT 14.6 SECONDS (9.7-12.2) H 11/01/17 22:26 INR 1.3 11/01/17 22:26 APTT 34 SECONDS (21-34) 11/01/17 22:26 - Constitutional Appears: Well - Head Exam Head Exam: ATRAUMATIC, NORMAL INSPECTION, NORMOCEPHALIC - Eye Exam Eye Exam: EOMI, Normal appearance, PERRL Pupil Exam: NORMAL ACCOMODATION, PERRL - ENT Exam ENT Exam: Mucous Membranes Moist, Normal Exam - Neck Exam Neck Exam: Full ROM, Normal Inspection. absent: Lymphadenopathy - Respiratory Exam Respiratory Exam: Decreased Breath Sounds - Cardiovascular Exam Cardiovascular Exam: REGULAR RHYTHM, +S1, +S2 - GI/Abdominal Exam GI & Abdominal Exam: Soft, Diminished Bowel Sounds - Rectal Exam Rectal Exam: Deferred Assessment and Plan (1) CHF (congestive heart failure) Status: Acute (2) Leg edema Status: Acute (3) NOEMI (acute kidney injury) Status: Acute (4) Abdominal pain Status: Acute (5) Acute CHF Status: Acute (6) Acute on chronic renal failure Status: Acute (7) Anemia Status: Acute (8) Anemia Status: Acute (9) Antral gastritis Status: Acute (10) Back pain Status: Acute (11) Chest pain Status: Acute (12) Chest pain Status: Acute (13) Coagulopathy Status: Acute (14) Coffee ground emesis Status: Acute (15) Colon cancer Status: Acute (16) Constipation Status: Acute (17) Contusion Status: Acute (18) Dehydration Status: Acute (19) Disorder of mediastinum Status: Acute (20) Dyspnea Status: Acute (21) Fall Status: Acute (22) GI bleed Status: Acute (23) Gastritis Status: Acute (24) Gastritis Status: Acute (25) Gouty arthritis Status: Acute (26) Heart failure Status: Acute (27) Hyperkalemia Status: Acute (28) Hypotension Status: Acute (29) Hypotension Status: Acute (30) Leukocytosis Status: Acute (31) Leukocytosis Status: Acute (32) Leukocytosis Status: Acute (33) Lung nodule < 6cm on CT Status: Acute (34) Mass of colon Status: Acute (35) Nausea Status: Acute (36) Pleural effusion Status: Acute (37) Pneumonia Status: Acute (38) Pneumonia Status: Acute (39) Pneumonia Status: Acute (40) Prophylactic measure Status: Acute (41) Rheumatoid arthritis Status: Acute (42) Severe dehydration Status: Acute (43) Skin tear of elbow without complication Status: Acute (44) Wedge compression fracture of T9 vertebra Status: Acute (45) Atrial fibrillation with rapid ventricular response Status: Chronic (46) COPD (chronic obstructive pulmonary disease) Status: Chronic (47) Hypertension Status: Chronic (48) Renal insufficiency Status: Chronic - Assessment and Plan (Free Text) Plan: DuoNeb GI prophylaxis DVT prophylaxis IV antibiotic Cardiology IV Lasix
[2017-11-04] MEDS: MethylPREDNISolone 40 mg Vial IV SCH (21:34)
[2017-11-05] MEDS: Albuterol-Ipratrop 3 mg / 0.5 (3 ml) UD INH SCH ×4 (03:22→20:59)
[2017-11-05] MEDS: MethylPREDNISolone 40 mg Vial IV SCH ×3 (05:25→21:06)
[2017-11-05] MEDS: Fluticasone-Salmeterol 250-50mcg Diskus INH SCH ×2 (07:34→20:59)
[2017-11-05] MEDS: Azithromycin 500 MG in Sodium Chloride 0.9% 250 ML IVPB SCH (10:50)
[2017-11-05] MEDS: Sucralfate 1 gm/10 ml Oral Susp UD PO SCH ×4 (10:51→21:03)
[2017-11-05] MEDS: Megestrol Acetate 40 mg/ml Cup PO SCH (10:51)
[2017-11-05] MEDS: Pantoprazole 40 mg EC Tab PO SCH (10:53)
[2017-11-05] MEDS: Enoxaparin 30 mg Syringe SC SCH (10:53)
--- NOTE | 2017-11-05 12:03 | CARD ---
APPROVED REPORT EKG Measurement Heart [id number] <Conclusion> Normal sinus rhythm Normal ECG
--- NOTE | 2017-11-05 12:28 | CP.PCM.PN ---
Subjective - Date & Time of Evaluation Date of Evaluation: 11/05/17 Time of Evaluation: 08:00 - Subjective Subjective: clinically same Objective - Vital Signs/Intake and Output Vital Signs (last 24 hours): Temp Pulse Resp BP Pulse Ox 97.6 F 75 20 129/63 99 11/05/17 08:00 11/05/17 08:00 11/05/17 08:00 11/05/17 10:53 11/05/17 08:00 Intake and Output: 11/05/17 11/05/17 06:59 18:59 Intake Total 215 Output Total 300 Balance -85 - Medications Medications: Current Medications Acetaminophen (Tylenol 325mg Tab) 325 mg PO Q4 PRN PRN Reason: Pain, Mild (1-3) Albuterol/Ipratropium (Duoneb 3 Mg/0.5 Mg (3 Ml) Ud) 3 ml INH RQ6 [facility] Last Admin: 11/05/17 07:34 Dose: 3 ml Carvedilol (Coreg) 3.125 mg PO BID [facility] Last Admin: 11/05/17 10:53 Dose: 3.125 mg Donepezil HCl (Aricept) 10 mg PO HS [facility] Last Admin: 11/04/17 21:34 Dose: 10 mg Enoxaparin Sodium (Lovenox) 30 mg SC DAILY [facility] Last Admin: 11/05/17 10:53 Dose: 30 mg Ferrous Sulfate (Feosol) 325 mg PO DAILY [facility] Last Admin: 11/05/17 10:53 Dose: 325 mg Folic Acid (Folic Acid) 1 mg PO DAILY [facility] Last Admin: 11/05/17 10:53 Dose: 1 mg Furosemide (Lasix) 40 mg IVP DAILY [facility] Last Admin: 11/05/17 10:53 Dose: 40 mg Azithromycin 500 mg/ Sodium (Chloride) 250 mls @ 250 mls/hr IVPB DAILY [facility] PRN Reason: Protocol Last Admin: 11/05/17 10:50 Dose: 250 mls/hr Levothyroxine Sodium (Levothroid) 100 mcg PO DAILY@0630 [facility] Last Admin: 11/05/17 05:30 Dose: 100 mcg Megestrol Acetate (Megace) 400 mg PO DAILY [facility] Last Admin: 11/05/17 10:51 Dose: 400 mg Methylprednisolone (Solu-Medrol) 40 mg IV Q8 [facility] Last Admin: 11/05/17 05:25 Dose: 40 mg Pantoprazole Sodium (Protonix Ec Tab) 40 mg PO DAILY [facility] Last Admin: 11/05/17 10:53 Dose: 40 mg Fluticasone/Salmeterol (Advair Diskus 250/50) 1 puff INH RQ12 [facility] Last Admin: 11/05/17 07:34 Dose: 1 puff Sucralfate (Carafate Oral Susp) 1 gm PO QID [facility] Last Admin: 11/05/17 10:51 Dose: 1 gm Tamsulosin HCl (Flomax) 0.4 mg PO DAILY [facility] Last Admin: 11/05/17 10:53 Dose: 0.4 mg - Labs Labs: 11/01/17 22:26 11/01/17 22:26 PT 14.6 SECONDS (9.7-12.2) H 11/01/17 22:26 INR 1.3 11/01/17 22:26 APTT 34 SECONDS (21-34) 11/01/17 22:26 - Constitutional Appears: Well - Head Exam Head Exam: ATRAUMATIC, NORMAL INSPECTION, NORMOCEPHALIC - Eye Exam Eye Exam: EOMI, Normal appearance, PERRL Pupil Exam: NORMAL ACCOMODATION, PERRL - ENT Exam ENT Exam: Mucous Membranes Moist, Normal Exam - Neck Exam Neck Exam: Full ROM, Normal Inspection. absent: Lymphadenopathy - Respiratory Exam Respiratory Exam: Decreased Breath Sounds - Cardiovascular Exam Cardiovascular Exam: REGULAR RHYTHM, +S1, +S2 - GI/Abdominal Exam GI & Abdominal Exam: Soft, Diminished Bowel Sounds - Rectal Exam Rectal Exam: Deferred Assessment and Plan (1) CHF (congestive heart failure) Status: Acute (2) Leg edema Status: Acute (3) NOEMI (acute kidney injury) Status: Acute (4) Abdominal pain Status: Acute (5) Acute CHF Status: Acute (6) Acute on chronic renal failure Status: Acute (7) Anemia Status: Acute (8) Anemia Status: Acute (9) Antral gastritis Status: Acute (10) Back pain Status: Acute (11) Chest pain Status: Acute (12) Chest pain Status: Acute (13) Coagulopathy Status: Acute (14) Coffee ground emesis Status: Acute (15) Colon cancer Status: Acute (16) Constipation Status: Acute (17) Contusion Status: Acute (18) Dehydration Status: Acute (19) Disorder of mediastinum Status: Acute (20) Dyspnea Status: Acute (21) Fall Status: Acute (22) GI bleed Status: Acute (23) Gastritis Status: Acute (24) Gastritis Status: Acute (25) Gouty arthritis Status: Acute (26) Heart failure Status: Acute (27) Hyperkalemia Status: Acute (28) Hypotension Status: Acute (29) Hypotension Status: Acute (30) Leukocytosis Status: Acute (31) Leukocytosis Status: Acute (32) Leukocytosis Status: Acute (33) Lung nodule < 6cm on CT Status: Acute (34) Mass of colon Status: Acute (35) Nausea Status: Acute (36) Pleural effusion Status: Acute (37) Pneumonia Status: Acute (38) Pneumonia Status: Acute (39) Pneumonia Status: Acute (40) Prophylactic measure Status: Acute (41) Rheumatoid arthritis Status: Acute (42) Severe dehydration Status: Acute (43) Skin tear of elbow without complication Status: Acute (44) Wedge compression fracture of T9 vertebra Status: Acute (45) Atrial fibrillation with rapid ventricular response Status: Chronic (46) COPD (chronic obstructive pulmonary disease) Status: Chronic (47) Hypertension Status: Chronic (48) Renal insufficiency Status: Chronic - Assessment and Plan (Free Text) Plan: Cardiology consult DuoNeb IV Lasix IV antibiotic Chest x-ray no active disease COPD As
[2017-11-05 14:08] LABS: ABG ALLEN TEST POS; ARTERIAL BLOOD GAS HCO3 24.3 mmol/L (21-28); ARTERIAL BLOOD GAS HEMOGLOBIN 7.8 g/dL (11.7-17.4); ARTERIAL BLOOD GAS O2 SAT 96.2 % (95-98); ARTERIAL BLOOD GAS PCO2 48 mm/Hg (35-45); ARTERIAL BLOOD GAS PH 7.33 (7.35-7.45); ARTERIAL BLOOD GAS PO2 58 mm/Hg (80-100); ARTERIAL BLOOD GAS TCO2 26.8 mmol/L (22-28)
[2017-11-05 14:08] LABS: HEMOGLOBIN 8.4 g/dL (12.0-18.0); LYMPH # 0.3 K/uL (1.0-4.3); LYMPH % 4.8 % (20.0-40.0); MEAN CELL VOLUME 80.4 fL (80.0-94.0); MEAN CORPUSCULAR HEMOGLOBIN 25.8 pg (27.0-31.0); MEAN CORPUSCULAR HGB CONC 32.1 g/dL (33.0-37.0); MEAN PLATELET VOLUME 7.2 fL (7.2-11.7); MONO # 0.2 K/uL (0.0-0.8); MONO % 2.6 % (0.0-10.0); NEUT # 5.7 K/uL (1.8-7.0); NEUT % 92.6 % (50.0-75.0); PLATELET COUNT 288 K/uL (130-400); RBC 3.25 Mil/uL (4.40-5.90); RED CELL DISTRIBUTION WIDTH 14.6 % (11.5-14.5); WHITE BLOOD COUNT 6.2 K/uL (4.8-10.8)
[2017-11-05 14:59] LABS: LYMPHOCYTE 3 % (20-40); MONOCYTE 1 % (0-10); NEUTROPHIL 96 % (50-75); PLATELET ESTIMATE NORMAL (NORMAL); TOTAL CELLS COUNTED 100
[2017-11-05 15:00] LABS: HYPOCHROMIC SLIGHT; POLYCHROMIC SLIGHT
[2017-11-06] MEDS: Albuterol-Ipratrop 3 mg / 0.5 (3 ml) UD INH SCH ×4 (01:46→20:00)
[2017-11-06] MEDS: Levothyroxine 100 MCG TAB PO SCH (05:47)
[2017-11-06] MEDS: Fluticasone-Salmeterol 250-50mcg Diskus INH SCH (08:19)
[2017-11-06 09:20] VITALS: RESP 20
[2017-11-06] MEDS: Sucralfate 1 gm/10 ml Oral Susp UD PO SCH ×4 (10:00→21:20)
[2017-11-06] MEDS: Megestrol Acetate 40 mg/ml Cup PO SCH (12:21)
[2017-11-06] MEDS: Enoxaparin 30 mg Syringe SC SCH (12:21)
[2017-11-06] MEDS: Pantoprazole 40 mg EC Tab PO SCH (12:22)
[2017-11-06] MEDS: MethylPREDNISolone 40 mg Vial IV SCH (12:22)
[2017-11-06] MEDS: Azithromycin 500 MG in Sodium Chloride 0.9% 250 ML IVPB SCH (12:45)
--- NOTE | 2017-11-06 19:11 | CP.PCM.PN ---
Subjective - Date & Time of Evaluation Date of Evaluation: 11/06/17 Time of Evaluation: 07:20 - Subjective Subjective: clinically same Objective - Vital Signs/Intake and Output Vital Signs (last 24 hours): Temp Pulse Resp BP Pulse Ox 98.2 F 86 20 96/56 L 96 11/06/17 16:00 11/06/17 16:00 11/06/17 16:00 11/06/17 16:00 11/06/17 16:00 - Medications Medications: Current Medications Acetaminophen (Tylenol 325mg Tab) 325 mg PO Q4 PRN PRN Reason: Pain, Mild (1-3) Albuterol/Ipratropium (Duoneb 3 Mg/0.5 Mg (3 Ml) Ud) 3 ml INH RQ6 [facility] Last Admin: 11/06/17 13:29 Dose: 3 ml Azithromycin (Zithromax) 250 mg PO DAILY [facility] PRN Reason: Protocol Last Admin: 11/06/17 15:15 Dose: 250 mg Carvedilol (Coreg) 3.125 mg PO BID [facility] Last Admin: 11/06/17 17:55 Dose: 3.125 mg Donepezil HCl (Aricept) 10 mg PO HS [facility] Last Admin: 11/05/17 21:03 Dose: 10 mg Enoxaparin Sodium (Lovenox) 30 mg SC DAILY [facility] Last Admin: 11/06/17 12:21 Dose: 30 mg Ferrous Sulfate (Feosol) 325 mg PO DAILY [facility] Last Admin: 11/06/17 12:21 Dose: 325 mg Folic Acid (Folic Acid) 1 mg PO DAILY [facility] Last Admin: 11/06/17 12:22 Dose: 1 mg Furosemide (Lasix) 40 mg PO DAILY [facility] Last Admin: 11/06/17 12:26 Dose: 40 mg Levothyroxine Sodium (Synthroid) 100 mcg PO DAILY@0630 [facility] Last Admin: 11/06/17 05:47 Dose: 100 mcg Megestrol Acetate (Megace) 400 mg PO DAILY [facility] Last Admin: 11/06/17 12:21 Dose: 400 mg Pantoprazole Sodium (Protonix Ec Tab) 40 mg PO DAILY [facility] Last Admin: 11/06/17 12:22 Dose: 40 mg Prednisone (Prednisone Tab) 20 mg PO DAILY [facility] Last Admin: 11/06/17 15:14 Dose: 20 mg Fluticasone/Salmeterol (Advair Diskus 250/50) 1 puff INH RQ12 [facility] Last Admin: 11/06/17 08:19 Dose: 1 puff Sucralfate (Carafate Oral Susp) 1 gm PO QID [facility] Last Admin: 11/06/17 17:55 Dose: 1 gm Tamsulosin HCl (Flomax) 0.4 mg PO DAILY [facility] Last Admin: 11/06/17 12:21 Dose: 0.4 mg - Labs Labs: 11/05/17 13:54 11/05/17 13:54 PT 14.6 SECONDS (9.7-12.2) H 11/01/17 22:26 INR 1.3 11/01/17 22:26 APTT 34 SECONDS (21-34) 11/01/17 22:26 - Constitutional Appears: Well - Head Exam Head Exam: ATRAUMATIC, NORMAL INSPECTION, NORMOCEPHALIC - Eye Exam Eye Exam: EOMI, Normal appearance, PERRL Pupil Exam: NORMAL ACCOMODATION, PERRL - ENT Exam ENT Exam: Mucous Membranes Moist, Normal Exam - Neck Exam Neck Exam: Full ROM, Normal Inspection. absent: Lymphadenopathy - Respiratory Exam Respiratory Exam: Decreased Breath Sounds - Cardiovascular Exam Cardiovascular Exam: REGULAR RHYTHM, +S1, +S2 - GI/Abdominal Exam GI & Abdominal Exam: Soft, Diminished Bowel Sounds - Rectal Exam Rectal Exam: Deferred Assessment and Plan (1) CHF (congestive heart failure) Status: Acute (2) Leg edema Status: Acute (3) NOEMI (acute kidney injury) Status: Acute (4) Abdominal pain Status: Acute (5) Acute CHF Status: Acute (6) Acute on chronic renal failure Status: Acute (7) Anemia Status: Acute (8) Anemia Status: Acute (9) Antral gastritis Status: Acute (10) Back pain Status: Acute (11) Chest pain Status: Acute (12) Chest pain Status: Acute (13) Coagulopathy Status: Acute (14) Coffee ground emesis Status: Acute (15) Colon cancer Status: Acute (16) Constipation Status: Acute (17) Contusion Status: Acute (18) Dehydration Status: Acute (19) Disorder of mediastinum Status: Acute (20) Dyspnea Status: Acute (21) Fall Status: Acute (22) GI bleed Status: Acute (23) Gastritis Status: Acute (24) Gastritis Status: Acute (25) Gouty arthritis Status: Acute (26) Heart failure Status: Acute (27) Hyperkalemia Status: Acute (28) Hypotension Status: Acute (29) Hypotension Status: Acute (30) Leukocytosis Status: Acute (31) Leukocytosis Status: Acute (32) Leukocytosis Status: Acute (33) Lung nodule < 6cm on CT Status: Acute (34) Mass of colon Status: Acute (35) Nausea Status: Acute (36) Pleural effusion Status: Acute (37) Pneumonia Status: Acute (38) Pneumonia Status: Acute (39) Pneumonia Status: Acute (40) Prophylactic measure Status: Acute (41) Rheumatoid arthritis Status: Acute (42) Severe dehydration Status: Acute (43) Skin tear of elbow without complication Status: Acute (44) Wedge compression fracture of T9 vertebra Status: Acute (45) Atrial fibrillation with rapid ventricular response Status: Chronic (46) COPD (chronic obstructive pulmonary disease) Status: Chronic (47) Hypertension Status: Chronic (48) Renal insufficiency Status: Chronic - Assessment and Plan (Free Text) Plan: pt usually wheel chair bound and jorge refuses to send pt to rehab spoke to pts daughter at [facility] pt may need short term oxygen as pt desautrates only on walking mildly uncomfotbale whle in bed [facility] same med followupwthcardio
[2017-11-07] MEDS: Albuterol-Ipratrop 3 mg / 0.5 (3 ml) UD INH SCH ×4 (01:37→20:40)
[2017-11-07] MEDS: Levothyroxine 100 MCG TAB PO SCH (05:40)
[2017-11-07] MEDS: Fluticasone-Salmeterol 250-50mcg Diskus INH SCH ×2 (07:36→20:40)
[2017-11-07] MEDS: Sucralfate 1 gm/10 ml Oral Susp UD PO SCH ×4 (10:31→21:56)
[2017-11-07] MEDS: Enoxaparin 30 mg Syringe SC SCH (10:31)
[2017-11-07] MEDS: Megestrol Acetate 40 mg/ml Cup PO SCH (10:31)
[2017-11-07] MEDS: Pantoprazole 40 mg EC Tab PO SCH (10:32)
--- NOTE | 2017-11-07 15:07 | CP.PCM.PN ---
Subjective - Date & Time of Evaluation Date of Evaluation: 11/07/17 Time of Evaluation: 15:05 - Subjective Subjective: HOME OXYGEN USE FOR EXERTIONAL DYSPNES AND HYPOXIA. O2 SATS FOLLOWS: O2 SAT AT ROOM AIR AT REST: 90 % O2 SAT AT ROOM AIR AFTER EXERTION/AMBULATION: 85 % O2 SAT WITH 3 LMP VIA NASAL CANNULA AFTER EXERTION/AMBULATION: 93 % Objective - Vital Signs/Intake and Output Vital Signs (last 24 hours): Temp Pulse Resp BP Pulse Ox 98.7 F 84 20 108/62 96 11/07/17 08:34 11/07/17 08:34 11/07/17 08:34 11/07/17 10:33 11/07/17 08:34 Intake and Output: 11/07/17 11/07/17 06:59 18:59 Intake Total 240 Balance 240 - Medications Medications: Current Medications Acetaminophen (Tylenol 325mg Tab) 325 mg PO Q4 PRN PRN Reason: Pain, Mild (1-3) Albuterol/Ipratropium (Duoneb 3 Mg/0.5 Mg (3 Ml) Ud) 3 ml INH RQ6 [facility] Last Admin: 11/07/17 13:00 Dose: 3 ml Azithromycin (Zithromax) 250 mg PO DAILY [facility] PRN Reason: Protocol Last Admin: 11/07/17 10:32 Dose: 250 mg Carvedilol (Coreg) 3.125 mg PO BID [facility] Last Admin: 11/07/17 10:33 Dose: 3.125 mg Donepezil HCl (Aricept) 10 mg PO HS [facility] Last Admin: 11/06/17 21:20 Dose: 10 mg Enoxaparin Sodium (Lovenox) 30 mg SC DAILY [facility] Last Admin: 11/07/17 10:31 Dose: 30 mg Ferrous Sulfate (Feosol) 325 mg PO DAILY [facility] Last Admin: 11/07/17 10:32 Dose: 325 mg Folic Acid (Folic Acid) 1 mg PO DAILY [facility] Last Admin: 11/07/17 10:32 Dose: 1 mg Furosemide (Lasix) 40 mg PO DAILY [facility] Last Admin: 11/07/17 10:33 Dose: 40 mg Levothyroxine Sodium (Synthroid) 100 mcg PO DAILY@0630 [facility] Last Admin: 11/07/17 05:40 Dose: 100 mcg Megestrol Acetate (Megace) 400 mg PO DAILY [facility] Last Admin: 11/07/17 10:31 Dose: 400 mg Pantoprazole Sodium (Protonix Ec Tab) 40 mg PO DAILY [facility] Last Admin: 11/07/17 10:32 Dose: 40 mg Prednisone (Prednisone Tab) 20 mg PO DAILY [facility] Last Admin: 11/07/17 10:32 Dose: 20 mg Fluticasone/Salmeterol (Advair Diskus 250/50) 1 puff INH RQ12 [facility] Last Admin: 11/07/17 07:36 Dose: 1 puff Sucralfate (Carafate Oral Susp) 1 gm PO QID [facility] Last Admin: 11/07/17 13:13 Dose: 1 gm Tamsulosin HCl (Flomax) 0.4 mg PO DAILY [facility] Last Admin: 11/07/17 10:32 Dose: 0.4 mg - Labs Labs: 11/05/17 13:54 11/05/17 13:54 PT 14.6 SECONDS (9.7-12.2) H 11/01/17 22:26 INR 1.3 11/01/17 22:26 APTT 34 SECONDS (21-34) 11/01/17 22:26
--- NOTE | 2017-11-07 16:58 | CP.PCM.PN ---
Subjective - Date & Time of Evaluation Date of Evaluation: 11/07/17 Time of Evaluation: 07:20 - Subjective Subjective: clinically same Objective - Vital Signs/Intake and Output Vital Signs (last 24 hours): Temp Pulse Resp BP Pulse Ox 98.7 F 84 20 108/62 96 11/07/17 08:34 11/07/17 08:34 11/07/17 08:34 11/07/17 10:33 11/07/17 08:34 Intake and Output: 11/07/17 11/07/17 06:59 18:59 Intake Total 240 Balance 240 - Medications Medications: Current Medications Acetaminophen (Tylenol 325mg Tab) 325 mg PO Q4 PRN PRN Reason: Pain, Mild (1-3) Albuterol/Ipratropium (Duoneb 3 Mg/0.5 Mg (3 Ml) Ud) 3 ml INH RQ6 [facility] Last Admin: 11/07/17 13:00 Dose: 3 ml Azithromycin (Zithromax) 250 mg PO DAILY [facility] PRN Reason: Protocol Last Admin: 11/07/17 10:32 Dose: 250 mg Carvedilol (Coreg) 3.125 mg PO BID [facility] Last Admin: 11/07/17 10:33 Dose: 3.125 mg Donepezil HCl (Aricept) 10 mg PO HS [facility] Last Admin: 11/06/17 21:20 Dose: 10 mg Enoxaparin Sodium (Lovenox) 30 mg SC DAILY [facility] Last Admin: 11/07/17 10:31 Dose: 30 mg Ferrous Sulfate (Feosol) 325 mg PO DAILY [facility] Last Admin: 11/07/17 10:32 Dose: 325 mg Folic Acid (Folic Acid) 1 mg PO DAILY [facility] Last Admin: 11/07/17 10:32 Dose: 1 mg Furosemide (Lasix) 40 mg PO DAILY [facility] Last Admin: 11/07/17 10:33 Dose: 40 mg Levothyroxine Sodium (Synthroid) 100 mcg PO DAILY@0630 [facility] Last Admin: 11/07/17 05:40 Dose: 100 mcg Megestrol Acetate (Megace) 400 mg PO DAILY [facility] Last Admin: 11/07/17 10:31 Dose: 400 mg Pantoprazole Sodium (Protonix Ec Tab) 40 mg PO DAILY [facility] Last Admin: 11/07/17 10:32 Dose: 40 mg Prednisone (Prednisone Tab) 20 mg PO DAILY [facility] Last Admin: 11/07/17 10:32 Dose: 20 mg Fluticasone/Salmeterol (Advair Diskus 250/50) 1 puff INH RQ12 [facility] Last Admin: 11/07/17 07:36 Dose: 1 puff Sucralfate (Carafate Oral Susp) 1 gm PO QID [facility] Last Admin: 11/07/17 13:13 Dose: 1 gm Tamsulosin HCl (Flomax) 0.4 mg PO DAILY [facility] Last Admin: 11/07/17 10:32 Dose: 0.4 mg - Labs Labs: 11/05/17 13:54 11/05/17 13:54 PT 14.6 SECONDS (9.7-12.2) H 11/01/17 22:26 INR 1.3 11/01/17 22:26 APTT 34 SECONDS (21-34) 11/01/17 22:26 - Constitutional Appears: Well - Head Exam Head Exam: ATRAUMATIC, NORMAL INSPECTION, NORMOCEPHALIC - Eye Exam Eye Exam: EOMI, Normal appearance, PERRL Pupil Exam: NORMAL ACCOMODATION, PERRL - ENT Exam ENT Exam: Mucous Membranes Moist, Normal Exam - Neck Exam Neck Exam: Full ROM, Normal Inspection. absent: Lymphadenopathy - Respiratory Exam Respiratory Exam: Decreased Breath Sounds - Cardiovascular Exam Cardiovascular Exam: REGULAR RHYTHM, +S1, +S2 - GI/Abdominal Exam GI & Abdominal Exam: Soft, Diminished Bowel Sounds - Rectal Exam Rectal Exam: Deferred Assessment and Plan (1) CHF (congestive heart failure) Status: Acute (2) Leg edema Status: Acute (3) NOEMI (acute kidney injury) Status: Acute (4) Abdominal pain Status: Acute (5) Acute CHF Status: Acute (6) Acute on chronic renal failure Status: Acute (7) Anemia Status: Acute (8) Anemia Status: Acute (9) Antral gastritis Status: Acute (10) Back pain Status: Acute (11) Chest pain Status: Acute (12) Chest pain Status: Acute (13) Coagulopathy Status: Acute (14) Coffee ground emesis Status: Acute (15) Colon cancer Status: Acute (16) Constipation Status: Acute (17) Contusion Status: Acute (18) Dehydration Status: Acute (19) Disorder of mediastinum Status: Acute (20) Dyspnea Status: Acute (21) Fall Status: Acute (22) GI bleed Status: Acute (23) Gastritis Status: Acute (24) Gastritis Status: Acute (25) Gouty arthritis Status: Acute (26) Heart failure Status: Acute (27) Hyperkalemia Status: Acute (28) Hypotension Status: Acute (29) Hypotension Status: Acute (30) Leukocytosis Status: Acute (31) Leukocytosis Status: Acute (32) Leukocytosis Status: Acute (33) Lung nodule < 6cm on CT Status: Acute (34) Mass of colon Status: Acute (35) Nausea Status: Acute (36) Pleural effusion Status: Acute (37) Pneumonia Status: Acute (38) Pneumonia Status: Acute (39) Pneumonia Status: Acute (40) Prophylactic measure Status: Acute (41) Rheumatoid arthritis Status: Acute (42) Severe dehydration Status: Acute (43) Skin tear of elbow without complication Status: Acute (44) Wedge compression fracture of T9 vertebra Status: Acute (45) Atrial fibrillation with rapid ventricular response Status: Chronic (46) COPD (chronic obstructive pulmonary disease) Status: Chronic (47) Hypertension Status: Chronic (48) Renal insufficiency Status: Chronic - Assessment and Plan (Free Text) Plan: IV Zithromax Lovenox p.o. Lasix Discharge planning Nurse thinks patient needs oxygen permanently although patient is not tolerating Discharge planning Patient is room air is 90% with walk ewnt downt o 85percent huma same d.w daughter for d cpt refuses hd
--- NOTE | 2017-11-07 18:36 | CP.PCM.CON ---
Past Patient History - Infectious Disease Hx of Infectious Diseases: None - Past Medical History & Family History Past Medical History?: Yes - Past Social History Smoking Status: Former Smoker - CARDIAC Hx Atrial Fibrillation: Yes Hx Congestive Heart Failure: Yes Hx Hypertension: Yes - PULMONARY Hx Bronchitis: Yes Hx Chronic Obstructive Pulmonary Disease (COPD): Yes Hx Emphysema: Yes Hx Pneumonia: Yes - NEUROLOGICAL Hx Neurological Disorder: No - HEENT Hx HEENT Problems: Yes Hx Cataracts: Yes - RENAL Hx Chronic Kidney Disease: No Hx Kidney Stones: No - ENDOCRINE/METABOLIC Hx Hypothyroidism: Yes - HEMATOLOGICAL/ONCOLOGICAL Hx Anemia: Yes Hx Human Immunodeficiency Virus (HIV): No Hx Sickle Cell Disease: No - INTEGUMENTARY Hx Dermatological Problems: No - MUSCULOSKELETAL/RHEUMATOLOGICAL Hx Arthritis: Yes (L HIP SURG) Hx Osteoporosis: Yes Hx Rheumatoid Arthritis: No - GASTROINTESTINAL Hx Crohn's Disease: No Hx Diverticulitis: No Hx Gall Bladder Disease: No Hx Gastritis: Yes Hx Pancreatitis: No - GENITOURINARY/GYNECOLOGICAL Hx Sexually Transmitted Disorders: No - PSYCHIATRIC Hx Anxiety: No Hx Bipolar Disorder: No Hx Depression: No Hx Post Traumatic Stress Disorder: No Hx Schizophrenia: No Hx Substance Use: No - SURGICAL HISTORY Hx Surgeries: Yes Hx Joint Replacement: Yes (left hip replacement) Hx Orthopedic Surgery: Yes (hip surgery) Other/Comment: colon resection 06/2016 - ANESTHESIA Hx Anesthesia: Yes Hx Anesthesia Reactions: No Hx Malignant Hyperthermia: No Meds Home Medications: Home Medication List Medication Instructions Recorded Confirmed Type predniSONE [Prednisone] 10 mg PO DAILY #10 tab 11/05/17 Rx Allergies/Adverse Reactions: Allergies Allergy/AdvReac Type Severity Reaction Status Date / Time No Known Allergies Allergy Verified 06/13/17 11:05 - Medications Medications: Current Medications Acetaminophen (Tylenol 325mg Tab) 325 mg PO Q4 PRN PRN Reason: Pain, Mild (1-3) Albuterol/Ipratropium (Duoneb 3 Mg/0.5 Mg (3 Ml) Ud) 3 ml INH RQ6 [facility] Last Admin: 11/07/17 13:00 Dose: 3 ml Azithromycin (Zithromax) 250 mg PO DAILY [facility] PRN Reason: Protocol Last Admin: 11/07/17 10:32 Dose: 250 mg Carvedilol (Coreg) 3.125 mg PO BID [facility] Last Admin: 11/07/17 18:08 Dose: 3.125 mg Donepezil HCl (Aricept) 10 mg PO HS [facility] Last Admin: 11/06/17 21:20 Dose: 10 mg Enoxaparin Sodium (Lovenox) 30 mg SC DAILY [facility] Last Admin: 11/07/17 10:31 Dose: 30 mg Ferrous Sulfate (Feosol) 325 mg PO DAILY [facility] Last Admin: 11/07/17 10:32 Dose: 325 mg Folic Acid (Folic Acid) 1 mg PO DAILY [facility] Last Admin: 11/07/17 10:32 Dose: 1 mg Furosemide (Lasix) 40 mg PO DAILY [facility] Last Admin: 11/07/17 10:33 Dose: 40 mg Levothyroxine Sodium (Synthroid) 100 mcg PO DAILY@0630 [facility] Last Admin: 11/07/17 05:40 Dose: 100 mcg Megestrol Acetate (Megace) 400 mg PO DAILY [facility] Last Admin: 11/07/17 10:31 Dose: 400 mg Pantoprazole Sodium (Protonix Ec Tab) 40 mg PO DAILY [facility] Last Admin: 11/07/17 10:32 Dose: 40 mg Prednisone (Prednisone Tab) 20 mg PO DAILY [facility] Last Admin: 11/07/17 10:32 Dose: 20 mg Fluticasone/Salmeterol (Advair Diskus 250/50) 1 puff INH RQ12 [facility] Last Admin: 11/07/17 07:36 Dose: 1 puff Sucralfate (Carafate Oral Susp) 1 gm PO QID [facility] Last Admin: 11/07/17 18:08 Dose: 1 gm Tamsulosin HCl (Flomax) 0.4 mg PO DAILY [facility] Last Admin: 11/07/17 10:32 Dose: 0.4 mg Results - Vital Signs Recent Vital Signs: Last Vital Signs Temp 98.6 F 11/07/17 16:00 Pulse 89 11/07/17 16:00 Resp 20 11/07/17 16:00 BP 96/59 L 11/07/17 16:00 Pulse Ox 98 11/07/17 16:00 - Labs Result Diagrams: 11/05/17 13:54 11/05/17 13:54
[2017-11-08] MEDS: Albuterol-Ipratrop 3 mg / 0.5 (3 ml) UD INH SCH ×3 (01:15→13:25)
[2017-11-08] MEDS: Levothyroxine 100 MCG TAB PO SCH (05:30)
[2017-11-08] MEDS: Fluticasone-Salmeterol 250-50mcg Diskus INH SCH (08:12)
[2017-11-08] MEDS: Enoxaparin 30 mg Syringe SC SCH (09:44)
[2017-11-08] MEDS: Megestrol Acetate 40 mg/ml Cup PO SCH (09:44)
[2017-11-08] MEDS: Pantoprazole 40 mg EC Tab PO SCH (09:44)
[2017-11-08] MEDS: Sucralfate 1 gm/10 ml Oral Susp UD PO SCH (09:44)
--- NOTE | 2017-11-08 10:07 | CP.PCM.PN ---
Subjective - Date & Time of Evaluation Date of Evaluation: 11/08/17 Time of Evaluation: 10:06 - Subjective Subjective: Patient is seen and examined No events overnight Objective - Vital Signs/Intake and Output Vital Signs (last 24 hours): Temp Pulse Resp BP Pulse Ox 98.4 F 92 H 20 129/54 L 95 11/07/17 23:36 11/07/17 23:36 11/07/17 23:36 11/08/17 09:44 11/07/17 23:36 Intake and Output: 11/08/17 11/08/17 06:59 18:59 Intake Total 540 Balance 540 - Medications Medications: Current Medications Acetaminophen (Tylenol 325mg Tab) 325 mg PO Q4 PRN PRN Reason: Pain, Mild (1-3) Albuterol/Ipratropium (Duoneb 3 Mg/0.5 Mg (3 Ml) Ud) 3 ml INH RQ6 [facility] Last Admin: 11/08/17 08:12 Dose: 3 ml Azithromycin (Zithromax) 250 mg PO DAILY [facility] PRN Reason: Protocol Last Admin: 11/08/17 09:44 Dose: 250 mg Carvedilol (Coreg) 3.125 mg PO BID [facility] Last Admin: 11/07/17 18:08 Dose: 3.125 mg Donepezil HCl (Aricept) 10 mg PO HS [facility] Last Admin: 11/07/17 22:41 Dose: 10 mg Enoxaparin Sodium (Lovenox) 30 mg SC DAILY [facility] Last Admin: 11/08/17 09:44 Dose: 30 mg Ferrous Sulfate (Feosol) 325 mg PO DAILY [facility] Last Admin: 11/08/17 09:44 Dose: 325 mg Folic Acid (Folic Acid) 1 mg PO DAILY [facility] Last Admin: 11/08/17 09:44 Dose: 1 mg Furosemide (Lasix) 40 mg PO DAILY [facility] Last Admin: 11/08/17 09:44 Dose: 40 mg Levothyroxine Sodium (Synthroid) 100 mcg PO DAILY@0630 [facility] Last Admin: 11/08/17 05:30 Dose: 100 mcg Megestrol Acetate (Megace) 400 mg PO DAILY [facility] Last Admin: 11/08/17 09:44 Dose: 400 mg Pantoprazole Sodium (Protonix Ec Tab) 40 mg PO DAILY [facility] Last Admin: 11/08/17 09:44 Dose: 40 mg Prednisone (Prednisone Tab) 20 mg PO DAILY [facility] Last Admin: 11/08/17 09:44 Dose: 20 mg Fluticasone/Salmeterol (Advair Diskus 250/50) 1 puff INH RQ12 [facility] Last Admin: 11/07/17 20:40 Dose: 1 puff Sucralfate (Carafate Oral Susp) 1 gm PO QID [facility] Last Admin: 11/08/17 09:44 Dose: 1 gm Tamsulosin HCl (Flomax) 0.4 mg PO DAILY [facility] Last Admin: 11/08/17 09:44 Dose: 0.4 mg - Labs Labs: 11/05/17 13:54 11/05/17 13:54 PT 14.6 SECONDS (9.7-12.2) H 11/01/17 22:26 INR 1.3 11/01/17 22:26 APTT 34 SECONDS (21-34) 11/01/17 22:26 - Head Exam Head Exam: NORMAL INSPECTION - Eye Exam Eye Exam: Normal appearance - ENT Exam ENT Exam: Mucous Membranes Moist - Respiratory Exam Respiratory Exam: Decreased Breath Sounds - Cardiovascular Exam Cardiovascular Exam: REGULAR RHYTHM, +S1, +S2 - GI/Abdominal Exam GI & Abdominal Exam: Soft, Normal Bowel Sounds - Extremities Exam Extremities Exam: Normal Inspection - Neurological Exam Neurological Exam: Alert Assessment and Plan (1) Hypoxemia Status: Acute (2) CHF (congestive heart failure) Status: Acute (3) COPD (chronic obstructive pulmonary disease) Status: Chronic - Assessment and Plan (Free Text) Plan: Continue Steroids Advair Bronchodilators Patient will need O2 on discharge DVT/GI prophalaxis
--- NOTE | 2017-11-08 10:18 | CP.PCM.PN ---
Subjective - Date & Time of Evaluation Date of Evaluation: 11/08/17 Time of Evaluation: 07:20 - Subjective Subjective: clinically same Objective - Vital Signs/Intake and Output Vital Signs (last 24 hours): Temp Pulse Resp BP Pulse Ox 98.4 F 92 H 20 129/54 L 95 11/07/17 23:36 11/07/17 23:36 11/07/17 23:36 11/08/17 09:44 11/07/17 23:36 Intake and Output: 11/08/17 11/08/17 06:59 18:59 Intake Total 540 Balance 540 - Medications Medications: Current Medications Acetaminophen (Tylenol 325mg Tab) 325 mg PO Q4 PRN PRN Reason: Pain, Mild (1-3) Albuterol/Ipratropium (Duoneb 3 Mg/0.5 Mg (3 Ml) Ud) 3 ml INH RQ6 [facility] Last Admin: 11/08/17 08:12 Dose: 3 ml Azithromycin (Zithromax) 250 mg PO DAILY [facility] PRN Reason: Protocol Last Admin: 11/08/17 09:44 Dose: 250 mg Carvedilol (Coreg) 3.125 mg PO BID [facility] Last Admin: 11/07/17 18:08 Dose: 3.125 mg Donepezil HCl (Aricept) 10 mg PO HS [facility] Last Admin: 11/07/17 22:41 Dose: 10 mg Enoxaparin Sodium (Lovenox) 30 mg SC DAILY [facility] Last Admin: 11/08/17 09:44 Dose: 30 mg Ferrous Sulfate (Feosol) 325 mg PO DAILY [facility] Last Admin: 11/08/17 09:44 Dose: 325 mg Folic Acid (Folic Acid) 1 mg PO DAILY [facility] Last Admin: 11/08/17 09:44 Dose: 1 mg Furosemide (Lasix) 40 mg PO DAILY [facility] Last Admin: 11/08/17 09:44 Dose: 40 mg Levothyroxine Sodium (Synthroid) 100 mcg PO DAILY@0630 [facility] Last Admin: 11/08/17 05:30 Dose: 100 mcg Megestrol Acetate (Megace) 400 mg PO DAILY [facility] Last Admin: 11/08/17 09:44 Dose: 400 mg Pantoprazole Sodium (Protonix Ec Tab) 40 mg PO DAILY [facility] Last Admin: 11/08/17 09:44 Dose: 40 mg Prednisone (Prednisone Tab) 20 mg PO DAILY [facility] Last Admin: 11/08/17 09:44 Dose: 20 mg Fluticasone/Salmeterol (Advair Diskus 250/50) 1 puff INH RQ12 [facility] Last Admin: 11/07/17 20:40 Dose: 1 puff Sucralfate (Carafate Oral Susp) 1 gm PO QID [facility] Last Admin: 11/08/17 09:44 Dose: 1 gm Tamsulosin HCl (Flomax) 0.4 mg PO DAILY [facility] Last Admin: 11/08/17 09:44 Dose: 0.4 mg - Labs Labs: 11/05/17 13:54 11/05/17 13:54 PT 14.6 SECONDS (9.7-12.2) H 11/01/17 22:26 INR 1.3 11/01/17 22:26 APTT 34 SECONDS (21-34) 11/01/17 22:26 - Constitutional Appears: Well - Head Exam Head Exam: ATRAUMATIC, NORMAL INSPECTION, NORMOCEPHALIC - Eye Exam Eye Exam: EOMI, Normal appearance, PERRL Pupil Exam: NORMAL ACCOMODATION, PERRL - ENT Exam ENT Exam: Mucous Membranes Moist, Normal Exam - Neck Exam Neck Exam: Full ROM, Normal Inspection. absent: Lymphadenopathy - Respiratory Exam Respiratory Exam: Decreased Breath Sounds - Cardiovascular Exam Cardiovascular Exam: REGULAR RHYTHM, +S1, +S2 - GI/Abdominal Exam GI & Abdominal Exam: Soft, Diminished Bowel Sounds - Rectal Exam Rectal Exam: Deferred Assessment and Plan (1) CHF (congestive heart failure) Status: Acute (2) Leg edema Status: Acute (3) NOEMI (acute kidney injury) Status: Acute (4) Abdominal pain Status: Acute (5) Acute CHF Status: Acute (6) Acute on chronic renal failure Status: Acute (7) Anemia Status: Acute (8) Anemia Status: Acute (9) Antral gastritis Status: Acute (10) Back pain Status: Acute (11) Chest pain Status: Acute (12) Chest pain Status: Acute (13) Coagulopathy Status: Acute (14) Coffee ground emesis Status: Acute (15) Colon cancer Status: Acute (16) Constipation Status: Acute (17) Contusion Status: Acute (18) Dehydration Status: Acute (19) Disorder of mediastinum Status: Acute (20) Dyspnea Status: Acute (21) Fall Status: Acute (22) GI bleed Status: Acute (23) Gastritis Status: Acute (24) Gastritis Status: Acute (25) Gouty arthritis Status: Acute (26) Heart failure Status: Acute (27) Hyperkalemia Status: Acute (28) Hypotension Status: Acute (29) Hypotension Status: Acute (30) Leukocytosis Status: Acute (31) Leukocytosis Status: Acute (32) Leukocytosis Status: Acute (33) Lung nodule < 6cm on CT Status: Acute (34) Mass of colon Status: Acute (35) Nausea Status: Acute (36) Pleural effusion Status: Acute (37) Pneumonia Status: Acute (38) Pneumonia Status: Acute (39) Pneumonia Status: Acute (40) Prophylactic measure Status: Acute (41) Rheumatoid arthritis Status: Acute (42) Severe dehydration Status: Acute (43) Skin tear of elbow without complication Status: Acute (44) Wedge compression fracture of T9 vertebra Status: Acute (45) Atrial fibrillation with rapid ventricular response Status: Chronic (46) COPD (chronic obstructive pulmonary disease) Status: Chronic (47) Hypertension Status: Chronic (48) Renal insufficiency Status: Chronic
[2017-11-08 17:02] VITALS: BP 109/58; PULSE 86; TEMP 98.5; O2SAT 100
--- NOTE | 2017-11-08 17:25 | PCM.HF ---
Heart Failure Core Measure - Heart Failure Ejection Fraction: 40 % or Greater (EF 70%) ESTHER Inhibitor Prescribed: No Contraindication/Reason for not providing: RENAL INSUFFICIENCY Beta-Ilsa Prescribed: Carvedilol Angiotensin II Receptor Ilsa Prescribed: No Contraindication/Reason for not providing: BP at the low side AnticoagulationTherapy for Atrial Fibrillation/Atrialflutter: No Contraindication/Reason for not providing: no afib Aldosterone Antagonist Prescribed: No Contraindication/Reason for not providing: BP at the low side Hydralazine Nitrate Prescribed: No Contraindication/Reason for not providing: EF >40% Implantable Cardioverter Defibrillator Therapy: No Contraindication/Reason for not providing: EF >40% Cardiac Resynchronization Therapy Prescribed: No Contraindication/Reason for not providing: not indicated - Follow up Will be discharged to: Home Follow Up Date (must be within 7 days from discharge): 11/15/17 Follow Up Time: 09:00
--- NOTE | 2017-11-08 17:31 | CP.PCM.PN ---
Subjective - Date & Time of Evaluation Date of Evaluation: 11/01/17 Time of Evaluation: 11:00 - Subjective Subjective: Awake, alert, no sob or chest pains. Objective - Vital Signs/Intake and Output Vital Signs (last 24 hours): Temp Pulse Resp BP Pulse Ox 98.5 F 86 20 109/58 L 100 11/08/17 16:58 11/08/17 16:58 11/08/17 16:58 11/08/17 16:58 11/08/17 16:58 Intake and Output: 11/08/17 11/08/17 06:59 18:59 Intake Total 540 Balance 540 - Labs Labs: 11/05/17 13:54 11/05/17 13:54 PT 14.6 SECONDS (9.7-12.2) H 11/01/17 22:26 INR 1.3 11/01/17 22:26 APTT 34 SECONDS (21-34) 11/01/17 22:26 Assessment and Plan - Assessment and Plan (Free Text) Assessment: Patient is seen and examined. Alert, awake, denies sob or chest pains, NAD. Discharge plan for today with home oxygen arranged. Advised to follow up with PMD in 1 week.
== END 2017-11-08 17:17 | disposition home or self-care (01) | DRG 291 ==
LOC: C.ER 21:33 → C.9E 23:00 → C.9I 11-03 04:13 → C.3T 11-04 14:13
PROVIDERS: ADMIT Internal Medicine Nephrology; ATTEND Internal Medicine Nephrology
DX: I13.0 Hypertensive heart and chronic kidney disease with heart failure and stage 1 through stage 4 chronic kidney disease, or unspecified chronic kidney disease (principal); J18.9 Pneumonia, unspecified organism; N17.9 Acute kidney failure, unspecified; J44.1 Chronic obstructive pulmonary disease with (acute) exacerbation; Z87.891 Personal history of nicotine dependence; Z96.642 Presence of left artificial hip joint; Z99.81 Dependence on supplemental oxygen; R09.02 Hypoxemia; M10.9 Gout, unspecified; M16.12 Unilateral primary osteoarthritis, left hip; N18.9 Chronic kidney disease, unspecified; K29.60 Other gastritis without bleeding; K59.00 Constipation, unspecified; I48.91 Unspecified atrial fibrillation; E87.5 Hyperkalemia; E86.0 Dehydration; E03.9 Hypothyroidism, unspecified; F03.90 Unspecified dementia, unspecified severity, without behavioral disturbance, psychotic disturbance, mood disturbance, and anxiety; D64.9 Anemia, unspecified; I50.9 Heart failure, unspecified; J43.9 Emphysema, unspecified; M06.9 Rheumatoid arthritis, unspecified

== ENCOUNTER 2018-01-22 11:27 | Inpatient (IN) | payer MEDICARE, MEDICAID ==
[2018-01-22 11:28] VITALS: PULSE 80; BMI 20.6
--- NOTE | 2018-01-22 11:45 | C.PDOC ---
History Of Present Illness 87 year old male sent in from alf after being found lethargic. 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 Unable to obtain further Hx from patient. 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, lung nodules s/p biopsy showing organizing pneumonia but suspicious for lung metastasis, Time Seen by Provider: 01/22/18 11:44 Chief Complaint (Nursing): Shortness Of Breath History Per: Other ([facility]) History/Exam Limitations: clinical condition Onset/Duration Of Symptoms: Hrs Current Symptoms Are (Timing): Still Present Past Medical History Reviewed: Historical Data, Nursing Documentation, Vital Signs Vital Signs: Last Vital Signs Temp 97.6 F 01/22/18 15:52 Pulse 87 01/22/18 16:50 Resp 18 01/22/18 16:50 BP 86/35 L 01/22/18 16:50 Pulse Ox 99 01/22/18 16:50 - Medical History PMH: Anemia, Arthritis (L HIP SURG), Atrial Fibrillation, Bronchitis, CHF, COPD , Emphysema, Gastritis, HTN, Hypothyroidism, Osteoporosis, Pneumonia Denies: Anxiety, Bipolar Disorder, Crohn's Disease, Depression, Diverticulitis, Gall Bladder Disease, HIV, Kidney Stones, Pancreatitis, Post Traumatic Stress Disorder, Chronic Kidney Disease, Rheumatoid Arthritis, Schizophrenia, Sickle Cell Disease, Sexually Transmitted Disease Surgical History: - [facility] Procedures (12/13/17) BONE MARROW BIOPSY (10/20/03) CLOSED ENDOSCOPIC BIOPSY OF LARGE INTESTINE (05/02/14) COLONOSCOPY (10/20/03) ESOPHAGOGASTRODUODENOSCOPY [EGD] W/CLOSED BIOPSY (10/20/03) EXCISION OF ASCENDING COLON, ENDO, DIAGN (06/09/16) EXCISION OF LEFT UPPER LUNG LOBE, PERC APPROACH, DIAGN (06/09/16) EXCISION OF SIGMOID COLON, ENDO, DIAGN (06/09/16) EXCISION OF STOMACH, ENDO, DIAGN (06/13/17) FLUOROSCOPY OF SUPERIOR VENA CAVA, GUIDANCE (12/13/17) INJECT STEROID (10/20/03) INJECTION INTO JOINT (10/20/03) INSERTION OF INFUSION DEV INTO SUP VENA CAVA, PERC APPROACH (12/13/17) INSERTION OF VAD INTO CHEST SUBCU/FASCIA, OPEN APPROACH (12/13/17) INSPECTION OF UPPER INTESTINAL TRACT, ENDO (05/27/16) INTRODUCTION OF NUTRITIONAL INTO PERIPH ART, PERC APPROACH (06/09/16) PACKED CELL TRANSFUSION (10/20/03) RESECTION OF APPENDIX, OPEN APPROACH (06/09/16) RESECTION OF SIGMOID COLON, OPEN APPROACH (06/09/16) TRANSFUSE NONAUT RED BLOOD CELLS IN PERIPH VEIN, PERC (11/10/16) ULTRASONOGRAPHY OF RIGHT JUGULAR VEINS, GUIDANCE (12/13/17) VACCINATION NEC (05/02/14) Family History: States: Diabetes - Social History Hx Tobacco Use: No (quit 15 yrs ago, was a heavy smoker) Hx Alcohol Use: No Hx Substance Use: No - Immunization History Hx Tetanus Toxoid Vaccination: No Hx Influenza Vaccination: No Hx Pneumococcal Vaccination: No Review Of Systems Review Of Systems: ROS cannot be obtained secondary to pt's inabilty to answer questions. Physical Exam - Physical Exam Appears: Non-toxic Skin: Warm, Dry, Other (Multiple old bruises to bilateral legs and forearms) Head: Atraumatic, Normacephalic Eye(s): bilateral: Normal Inspection, PERRL, EOMI Oral Mucosa: Moist Neck: Normal, Supple Chest: Symmetrical, No Tenderness Cardiovascular: Rhythm Regular Respiratory: No Rales, Rhonchi (Bilateral), No Wheezing Gastrointestinal/Abdominal: Soft, No Tenderness Back: No CVA Tenderness Neurological/Psych: Other (Sleepy, arousable to voice, nonverbal) Gait: Unable To Assess ED Course And Treatment - Laboratory Results Result Diagrams: 01/22/18 12:12 01/22/18 12:12 - CT Scan/US CT head Other Rad Studies (CT/US): Read By Radiologist, Radiology Report Reviewed CT/US Interpretation: PROCEDURE: CT HEAD WITHOUT CONTRAST. HISTORY: AMS. COMPARISON: Comparison made with CT scan brain 04/08/2016. TECHNIQUE: Axial computed tomography images were obtained through the head/brain without intravenous contrast. Radiation dose: Total exam DLP = 1062.05 mGy-cm. This CT exam was performed using one or more of the following dose reduction techniques: Automated exposure control, adjustment of the mA and/or kV according to patient size, and/or use of iterative reconstruction technique. FINDINGS: HEMORRHAGE: No acute parenchymal, subarachnoid or extra-axial hemorrhage. BRAIN: There is a relatively large area encephalomalacia left temporal lobe and similar but less severe changes of right inferior temporal lobe that may represent sequela of old trauma. Clinical correlation recommended. There is associated ex vacuo dilatation of the left temporal horn and left atrium. Mild chronic periventricular white matter ischemic changes seen extending peripherally into the deep and to lesser degree subcortical white matter both cerebral hemispheres. Questionable of few chronic bilateral basal nuclei lacunar type infarcts. Note that the possibility of a small hyperacute infarct cannot be excluded. No obvious parenchymal nor extra-axial mass or collection seen on this noncontrast study. There is moderate to fairly significant volume loss. VENTRICLES: No obstructive hydrocephalus. CALVARIUM : No acute calvarial fractures. PARANASAL SINUSES: Unremarkable as visualized. No significant inflammatory changes. MASTOID AIR CELLS: Unremarkable as visualized. No inflammatory changes. OTHER FINDINGS: None. IMPRESSION: No evidence acute intracranial hemorrhage. Fairly significant encephalomalacia changes left temporal lobe with mild of encephalomalacia right the inferior temporal lobe ; rule out sequela of old trauma. There is associated ex vacuo dilatation of the left temporal horn Mild chronic white matter ischemic changes. 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 Moderate to fairly significant atrophy. Progress - Re-Evaluation Re-evaluation Note: 01/22/18 13:31 DAUGHTER @ BEDSIDE, PT W PRIOR HO TRANSFUSIONS FOR RECURRENT ANEMIA. EXAM [facility]. TYPE CROSS PENDING. FULL CODE D/W DR Jayson KOWALSKI WILL ADMIT. 01/22/18 13:50 D/W DR STEARNS WILL EVAL IN ER - Data Reviewed Data Reviewed: Lab, Diagnostic imaging, EKG, Old records - Critical Care Citical Care: Excluding Proc Time Critical Care Time: 90 minutes Medical Decision Making Medical Decision Making: Plan: Blood work CT head EKG CXR Urinalysis Disposition Counseled Patient/Family Regarding: Studies Performed, Diagnosis - Disposition Disposition: HOSPITALIZED Disposition Time: 14:15 Condition: CRITICAL - POA Present On Arrival: Poor Glycemic Control - Clinical Impression Clinical Impression: Severe anemia, Hypotension, ESRD (end stage renal disease) - Scribe Statement The provider has reviewed the documentation as recorded by the Scribe Ab Montano All medical record entries made by the Scribe were at my direction and personally dictated by me. I have reviewed the chart and agree that the record accurately reflects my personal performance of the history, physical exam, medical decision making, and the department course for this patient. I have also personally directed, reviewed, and agree with the discharge instructions and disposition.
[2018-01-22 12:19] LABS: BASO % 0.3 % (0.0-2.0); EOS % 0.2 % (0.0-4.0); LYMPH # 0.4 K/uL (1.0-4.3); LYMPH % 4.2 % (20.0-40.0); MEAN CORPUSCULAR HEMOGLOBIN 28.7 pg (27.0-31.0); MEAN CORPUSCULAR HGB CONC 32.1 g/dL (33.0-37.0); MEAN PLATELET VOLUME 10.9 fL (7.2-11.7); MONO # 0.3 K/uL (0.0-0.8); MONO % 3.5 % (0.0-10.0); NEUT # 8.7 K/uL (1.8-7.0); NEUT % 91.8 % (50.0-75.0); NRBC % 0.1 % (0.0-2.0); RBC 1.39 Mil/uL (4.40-5.90); RED CELL DISTRIBUTION WIDTH 20.4 % (11.5-14.5); WHITE BLOOD COUNT 9.5 K/uL (4.8-10.8)
[2018-01-22 12:30] LABS: MEAN CELL VOLUME 89.1 fL (80.0-94.0); PLATELET COUNT 64 K/uL (130-400)
[2018-01-22 12:37] LABS: VENOUS BLOOD GAS BASE EXCESS -0.9 mmol/L (0.0-2.0); VENOUS BLOOD GAS PCO2 70 mmHg (40-60); VENOUS BLOOD GAS PO2 36 mm/Hg (30-55); VENOUS BLOOD PH 7.22 (7.32-7.43)
[2018-01-22 12:42] LABS: TROPONIN I 0.044 ng/mL (0.00-0.120)
[2018-01-22 12:57] LABS: ANISOCYTOSIS MODERATE; BANDS 5 % (0-2); EOSINOPHIL 1 % (0-4); LYMPHOCYTE 4 % (20-40); MONOCYTE 2 % (0-10); NEUTROPHIL 88 % (50-75); PLATELET ESTIMATE DECREASED (NORMAL); TOTAL CELLS COUNTED 100
[2018-01-22 12:58] LABS: HYPOCHROMIC SLIGHT
[2018-01-22 13:03] LABS: ALB/GLOB RATIO 1.2 (1.0-2.1); ALBUMIN 2.1 g/dL (3.5-5.0); CALCIUM 7.4 mg/dl (8.6-10.4)
--- NOTE | 2018-01-22 13:29 | RAD ---
HISTORY: SOB COMPARISON: Chest x-ray performed 12/31/17 TECHNIQUE: Chest, one view. FINDINGS: Right IJ approach dialysis catheter extends expected location of the SVC. LUNGS: Small right greater than left pleural effusions and associated consolidations. Mild pulmonary venous congestion. No definite pneumothorax. CARDIOVASCULAR: Borderline cardiomegaly. Atherosclerotic calcifications of the aorta. OSSEOUS STRUCTURES: Osseous demineralization. Degenerative changes. VISUALIZED UPPER ABDOMEN: Unremarkable. OTHER FINDINGS: None. IMPRESSION: Right IJ approach dialysis catheter. Small right greater than left pleural effusions and associated consolidations. Mild pulmonary venous congestion. Borderline cardiomegaly.
--- NOTE | 2018-01-22 14:21 | CT ---
Date of service: 01/22/2018 PROCEDURE: CT HEAD WITHOUT CONTRAST. HISTORY: AMS COMPARISON: Comparison made with CT scan brain 04/08/2016 TECHNIQUE: Axial computed tomography images were obtained through the head/brain without intravenous contrast. Radiation dose: Total exam DLP = 1062.05 mGy-cm. This CT exam was performed using one or more of the following dose reduction techniques: Automated exposure control, adjustment of the mA and/or kV according to patient size, and/or use of iterative reconstruction technique. FINDINGS: HEMORRHAGE: No acute parenchymal, subarachnoid or extra-axial hemorrhage. BRAIN: There is a relatively large area encephalomalacia left temporal lobe and similar but less severe changes of right inferior temporal lobe that may represent sequela of old trauma. Clinical correlation recommended. There is associated ex vacuo dilatation of the left temporal horn and left atrium. Mild chronic periventricular white matter ischemic changes seen extending peripherally into the deep and to lesser degree subcortical white matter both cerebral hemispheres. Questionable of few chronic bilateral basal nuclei lacunar type infarcts. Note that the possibility of a small hyperacute infarct cannot be excluded. No obvious parenchymal nor extra-axial mass or collection seen on this noncontrast study. There is moderate to fairly significant volume loss. VENTRICLES: No obstructive hydrocephalus. CALVARIUM: No acute calvarial fractures. PARANASAL SINUSES: Unremarkable as visualized. No significant inflammatory changes. MASTOID AIR CELLS: Unremarkable as visualized. No inflammatory changes. OTHER FINDINGS: None. IMPRESSION: No evidence acute intracranial hemorrhage. Fairly significant encephalomalacia changes left temporal lobe with mild of encephalomalacia right the inferior temporal lobe ; rule out sequela of old trauma. There is associated ex vacuo dilatation of the left temporal horn Mild chronic white matter ischemic changes. 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 Moderate to fairly significant atrophy.
[2018-01-22 16:01] LABS: VENOUS BLOOD GAS BASE EXCESS -0.2 mmol/L (0.0-2.0); VENOUS BLOOD GAS PCO2 63 mmHg (40-60); VENOUS BLOOD GAS PO2 29 mm/Hg (30-55); VENOUS BLOOD PH 7.26 (7.32-7.43)
--- NOTE | 2018-01-22 16:17 | CP.PCM.CON ---
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 In the ED labwork was done and showed the patient had Hb of 4. Patient hypotensive with blood pressure of 78/30. ICU consulted for anemia with hb of 4 and hypotension. 12 Point ROS unobtainable as patient is currently altered. Past Patient History - Infectious Disease Hx of Infectious Diseases: None - Past Medical History & Family History Past Medical History?: Yes - Past Social History Smoking Status: Former Smoker - CARDIAC Hx Atrial Fibrillation: Yes Hx Congestive Heart Failure: Yes Hx Hypertension: Yes - PULMONARY Hx Bronchitis: Yes Hx Chronic Obstructive Pulmonary Disease (COPD): Yes Hx Emphysema: Yes Hx Pneumonia: Yes - NEUROLOGICAL Hx Neurological Disorder: No - HEENT Hx HEENT Problems: Yes Hx Cataracts: Yes - RENAL Hx Chronic Kidney Disease: No Hx Kidney Stones: No - ENDOCRINE/METABOLIC Hx Hypothyroidism: Yes - HEMATOLOGICAL/ONCOLOGICAL Hx Anemia: Yes Hx Human Immunodeficiency Virus (HIV): No Hx Sickle Cell Disease: No - INTEGUMENTARY Hx Dermatological Problems: No - MUSCULOSKELETAL/RHEUMATOLOGICAL Hx Arthritis: Yes (L HIP SURG) Hx Osteoporosis: Yes Hx Rheumatoid Arthritis: No - GASTROINTESTINAL Hx Crohn's Disease: No Hx Diverticulitis: No Hx Gall Bladder Disease: No Hx Gastritis: Yes Hx Pancreatitis: No - GENITOURINARY/GYNECOLOGICAL Hx Sexually Transmitted Disorders: No - PSYCHIATRIC Hx Anxiety: No Hx Bipolar Disorder: No Hx Depression: No Hx Post Traumatic Stress Disorder: No Hx Schizophrenia: No Hx Substance Use: No - SURGICAL HISTORY Hx Surgeries: Yes Hx Joint Replacement: Yes (left hip replacement) Hx Orthopedic Surgery: Yes (hip surgery) Other/Comment: colon resection 06/2016 - ANESTHESIA Hx Anesthesia: Yes Hx Anesthesia Reactions: No Hx Malignant Hyperthermia: No Meds Allergies/Adverse Reactions: Allergies Allergy/AdvReac Type Severity Reaction Status Date / Time No Known Allergies Allergy Verified 01/22/18 11:49 Physical Exam - Constitutional Appears: No Acute Distress - Head Exam Head Exam: ATRAUMATIC, NORMOCEPHALIC - Eye Exam Eye Exam: PERRL, Scleral icterus Pupil Exam: NORMAL ACCOMODATION - ENT Exam ENT Exam: Mucous Membranes Moist - Respiratory Exam Respiratory Exam: Clear to Auscultation Bilateral. absent: Rales, Rhonchi, Wheezes - Cardiovascular Exam Cardiovascular Exam: REGULAR RHYTHM, RRR, +S1, +S2 - GI/Abdominal Exam GI & Abdominal Exam: Normal Bowel Sounds, Soft. absent: Distended, Tenderness - Extremities Exam Extremities exam: Negative for: calf tenderness, pedal edema - Neurological Exam Neurological exam: Altered, CN II-XII Intact - Skin Skin Exam: Dry, Pallor (Very pale ), Warm Results - Vital Signs Recent Vital Signs: Last Vital Signs Temp 97.6 F 01/22/18 15:52 Pulse 85 01/22/18 15:52 Resp 20 01/22/18 15:52 BP 99/41 L 01/22/18 15:52 Pulse Ox 99 01/22/18 15:52 - Labs Result Diagrams: 01/22/18 12:12 01/22/18 12:12 Labs: Laboratory Results - last 24 hr 01/22/18 01/22/18 01/22/18 12:12 12:12 12:31 WBC 9.5 RBC 1.39 L Hgb 4.0 L* D Hct 12.4 L MCV 89.1 D MCH 28.7 MCHC 32.1 L RDW 20.4 H Plt Count 64 L D MPV 10.9 Neut % (Auto) 91.8 H Lymph % (Auto) 4.2 L [place] % (Auto) 3.5 Eos % (Auto) 0.2 Baso % (Auto) 0.3 Neut # (Auto) 8.7 H Lymph # (Auto) 0.4 L [place] # (Auto) 0.3 Eos # (Auto) 0.0 Baso # (Auto) 0.0 Neutrophils % (Manual) 88 H Band Neutrophils % 5 H Lymphocytes % (Manual) 4 L Monocytes % (Manual) 2 Eosinophils % (Manual) 1 Platelet Estimate Decreased L Hypochromasia (manual) Slight Anisocytosis (manual) Moderate pO2 36 VBG pH 7.22 L VBG pCO2 70 H* VBG HCO3 23.1 VBG Total CO2 30.7 H VBG O2 Sat (Calc) 70.6 H VBG Base Excess -0.9 L VBG Potassium 3.3 L Glucose 105 Lactate 1.3 FiO2 Crit Value Called To Dr myrick Crit Value Called By Sam coronado assistant fitness manager Crit Value Read Back Y Blood Gas Notified Time 1237 Sodium 137 139.0 Potassium 3.6 Chloride 98 103.0 Carbon Dioxide 27 Anion Gap 15 BUN 112 H* D Creatinine 3.4 H Est GFR ( Amer) 21 Est GFR (Non-Af Amer) 17 Random Glucose 122 H Calcium 7.4 L Total Bilirubin 0.2 AST 7 L D ALT 32 Alkaline Phosphatase 56 Troponin I 0.0440 NT-Pro-B Natriuret Pep 51837 H Total Protein 3.9 L Albumin 2.1 L Globulin 1.7 L Albumin/Globulin Ratio 1.2 Venous Blood Potassium 3.3 L Blood Type Antibody Screen 01/22/18 01/22/18 12:48 15:45 WBC RBC Hgb Hct MCV MCH MCHC RDW Plt Count MPV Neut % (Auto) Lymph % (Auto) [place] % (Auto) Eos % (Auto) Baso % (Auto) Neut # (Auto) Lymph # (Auto) [place] # (Auto) Eos # (Auto) Baso # (Auto) Neutrophils % (Manual) Band Neutrophils % Lymphocytes % (Manual) Monocytes % (Manual) Eosinophils % (Manual) Platelet Estimate Hypochromasia (manual) Anisocytosis (manual) pO2 29 L VBG pH 7.26 L VBG pCO2 63 H VBG HCO3 23.3 VBG Total CO2 30.2 H VBG O2 Sat (Calc) 57.9 VBG Base Excess -0.2 L VBG Potassium 3.3 L Glucose 97 Lactate 1.5 FiO2 21.0 Crit Value Called To Crit Value Called By Crit Value Read Back Blood Gas Notified Time Sodium 139.0 Potassium Chloride 105.0 Carbon Dioxide Anion Gap BUN Creatinine Est GFR ( Amer) Est GFR (Non-Af Amer) Random Glucose Calcium Total Bilirubin AST ALT Alkaline Phosphatase Troponin I NT-Pro-B Natriuret Pep Total Protein Albumin Globulin Albumin/Globulin Ratio Venous Blood Potassium 3.3 L Blood Type A POSITIVE Antibody Screen Negative Assessment & Plan - Assessment and Plan (Free Text) Assessment: 87 year old male with PMHx of ESRD (Saturday/Saturday), HTN, Atrial Fibrillation on Eliquis, CHF, COPD/Bronchitis, Gastritis, Hypothyroidism, Osteoporosis, Anemia, Pneumonia Arthritis, 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 Patient found to have Hb of 4 and hypotensive 78/30. Neuro: - Altered - Head Ct showed no evidence of acute intracranial hemorrhage Pulm: - maintain SPO2 > 90% - NC as needed - CXR showed pulm effusion and associated consolidation, R> L CV: - Currently hypotensive to systolics of 80-90s - Maintain MAP> 65 GI: - NPO - patient with prior hx of anemia and transfusions - Hb of 4 - Started on protonix ggt - Plan to transfuse 3 units of PRBC - CBC Q4H - GI consulted for recs - Elevated BUN 112 - Cont to monitor H/H - Hold all anticoagulation Heme: - Hb of 4 - Plan to transfuse 3 units of PRBC - Monitor H/H Endo: - maintain euglycemia Renal: - Patient receives dialysis sat/sat - Cr of 3.4 - Monitor I and O - Replete electrolytes as needed ID: - Afebrile - Wbc of 9.5 - No signs of infection - Monitor off of abx for now - F/u septic work up GI/DVT ppx Case and plan was reviewed and discussed in detail with Dr May. <Noel May - Last Filed: 01/22/18 19:04> Meds - Medications Medications: Current Medications Pantoprazole Sodium 80 mg/ (Sodium Chloride) 100 mls @ 10 mls/hr IVP .Q10H ANDREA PRN Reason: 8 MG/HR Results - Vital Signs Recent Vital Signs: Last Vital Signs Temp 97.6 F 01/22/18 15:52 Pulse 87 01/22/18 16:50 Resp 18 01/22/18 16:50 BP 86/35 L 01/22/18 16:50 Pulse Ox 99 01/22/18 16:50 - Labs Result Diagrams: 01/22/18 12:12 01/22/18 12:12 Labs: Laboratory Results - last 24 hr 01/22/18 01/22/18 01/22/18 12:12 12:12 12:31 WBC 9.5 RBC 1.39 L Hgb 4.0 L* D Hct 12.4 L MCV 89.1 D MCH 28.7 MCHC 32.1 L RDW 20.4 H Plt Count 64 L D MPV 10.9 Neut % (Auto) 91.8 H Lymph % (Auto) 4.2 L [place] % (Auto) 3.5 Eos % (Auto) 0.2 Baso % (Auto) 0.3 Neut # (Auto) 8.7 H Lymph # (Auto) 0.4 L [place] # (Auto) 0.3 Eos # (Auto) 0.0 Baso # (Auto) 0.0 Neutrophils % (Manual) 88 H Band Neutrophils % 5 H Lymphocytes % (Manual) 4 L Monocytes % (Manual) 2 Eosinophils % (Manual) 1 Platelet Estimate Decreased L Hypochromasia (manual) Slight Anisocytosis (manual) Moderate pO2 36 VBG pH 7.22 L VBG pCO2 70 H* VBG HCO3 23.1 VBG Total CO2 30.7 H VBG O2 Sat (Calc) 70.6 H VBG Base Excess -0.9 L VBG Potassium 3.3 L Glucose 105 Lactate 1.3 FiO2 Crit Value Called To Dr myrick Crit Value Called By Sam coronado assistant fitness manager Crit Value Read Back Y Blood Gas Notified Time 1237 Sodium 137 139.0 Potassium 3.6 Chloride 98 103.0 Carbon Dioxide 27 Anion Gap 15 BUN 112 H* D Creatinine 3.4 H Est GFR ( Amer) 21 Est GFR (Non-Af Amer) 17 Random Glucose 122 H Calcium 7.4 L Total Bilirubin 0.2 AST 7 L D ALT 32 Alkaline Phosphatase 56 Troponin I 0.0440 NT-Pro-B Natriuret Pep 77243 H Total Protein 3.9 L Albumin 2.1 L Globulin 1.7 L Albumin/Globulin Ratio 1.2 Venous Blood Potassium 3.3 L Blood Type Antibody Screen 01/22/18 01/22/18 12:48 15:45 WBC RBC Hgb Hct MCV MCH MCHC RDW Plt Count MPV Neut % (Auto) Lymph % (Auto) [place] % (Auto) Eos % (Auto) Baso % (Auto) Neut # (Auto) Lymph # (Auto) [place] # (Auto) Eos # (Auto) Baso # (Auto) Neutrophils % (Manual) Band Neutrophils % Lymphocytes % (Manual) Monocytes % (Manual) Eosinophils % (Manual) Platelet Estimate Hypochromasia (manual) Anisocytosis (manual) pO2 29 L VBG pH 7.26 L VBG pCO2 63 H VBG HCO3 23.3 VBG Total CO2 30.2 H VBG O2 Sat (Calc) 57.9 VBG Base Excess -0.2 L VBG Potassium 3.3 L Glucose 97 Lactate 1.5 FiO2 21.0 Crit Value Called To Crit Value Called By Crit Value Read Back Blood Gas Notified Time Sodium 139.0 Potassium Chloride 105.0 Carbon Dioxide Anion Gap BUN Creatinine Est GFR ( Amer) Est GFR (Non-Af Amer) Random Glucose Calcium Total Bilirubin AST ALT Alkaline Phosphatase Troponin I NT-Pro-B Natriuret Pep Total Protein Albumin Globulin Albumin/Globulin Ratio Venous Blood Potassium 3.3 L Blood Type A POSITIVE Antibody Screen Negative Attending/Attestation - Attestation I have personally seen and examined this patient.: Yes I have fully participated in the care of the patient.: Yes I have reviewed all pertinent clinical information: Yes Notes (Text): 01/22/18 19:03 patient seen and examined 87-year-old male presented with hemoglobin of 4 and hypotension Transfused PRBCs Follow-up CBC hold Anticoagulation GI evaluation
[2018-01-22] MEDS ORDERED: Pantoprazole 80 MG in Sodium Chloride 0.9% 100 ML IVP SCH (16:45)
[2018-01-22] MEDS ORDERED: Pantoprazole 80 MG in Sodium Chloride 0.9% 100 ML IVP ONE (17:00)
[2018-01-22] MEDS ORDERED: Pantoprazole 80 MG in Sodium Chloride 0.9% 100 ML IVPB SCH (20:00)
[2018-01-22] MEDS ORDERED: Pantoprazole 80 MG in Sodium Chloride 0.9% 100 ML IVPB ONE (20:00)
[2018-01-22] MEDS ORDERED: Magnesium Hydroxide Susp 30 ml UD PO PRN (20:09)
[2018-01-22] MEDS: MethylPREDNISolone 40 mg Vial IVP SCH (21:42)
[2018-01-22] MEDS: Pantoprazole 80 MG in Sodium Chloride 0.9% 100 ML IVPB SCH (21:45)
--- NOTE | 2018-01-22 21:52 | CP.PCM.HP ---
Past Patient History - Infectious Disease Hx of Infectious Diseases: None - Past Medical History & Family History Past Medical History?: Yes - Past Social History Smoking Status: Former Smoker - CARDIAC Hx Cardiac Disorders: Yes Hx Atrial Fibrillation: Yes Hx Congestive Heart Failure: Yes Hx Hypertension: Yes - PULMONARY Hx Respiratory Disorders: Yes Hx Bronchitis: Yes Hx Chronic Obstructive Pulmonary Disease (COPD): Yes Hx Emphysema: Yes Hx Pneumonia: Yes - NEUROLOGICAL Hx Neurological Disorder: No - HEENT Hx HEENT Problems: Yes Hx Cataracts: Yes - RENAL Hx Chronic Kidney Disease: Yes Hx Dialysis: Yes Type of Dialysis Access: PermaCath Date of Last Dialysis Treatment: 01/20/18 Hx Kidney Stones: No - ENDOCRINE/METABOLIC Hx Endocrine Disorders: Yes Hx Hypothyroidism: Yes - HEMATOLOGICAL/ONCOLOGICAL Hx Blood Disorders: Yes Hx Anemia: Yes Hx Blood Transfusions: Yes Hx Human Immunodeficiency Virus (HIV): No Hx Sickle Cell Disease: No - INTEGUMENTARY Hx Dermatological Problems: No - MUSCULOSKELETAL/RHEUMATOLOGICAL Hx Musculoskeletal Disorders: Yes Hx Arthritis: Yes Hx Falls: No Hx Osteoporosis: Yes - GASTROINTESTINAL Hx Gastrointestinal Disorders: Yes Hx Crohn's Disease: No Hx Diverticulitis: No Hx Gall Bladder Disease: No Hx Gastritis: Yes Hx Pancreatitis: No Other/Comment: Ca of colon - GENITOURINARY/GYNECOLOGICAL Hx Genitourinary Disorders: No Hx Sexually Transmitted Disorders: No - PSYCHIATRIC Hx Anxiety: No Hx Bipolar Disorder: No Hx Depression: No Hx Post Traumatic Stress Disorder: No Hx Schizophrenia: No Hx Substance Use: No - SURGICAL HISTORY Hx Surgeries: Yes Hx Joint Replacement: Yes (left hip replacement) Hx Orthopedic Surgery: Yes (hip surgery) Other/Comment: colon resection 06/2016 - ANESTHESIA Hx Anesthesia: Yes Hx Anesthesia Reactions: No Hx Malignant Hyperthermia: No Meds Allergies/Adverse Reactions: Allergies Allergy/AdvReac Type Severity Reaction Status Date / Time No Known Allergies Allergy Verified 01/22/18 11:49 Physical Exam - Constitutional Appears: Well - Head Exam Head Exam: ATRAUMATIC, NORMAL INSPECTION, NORMOCEPHALIC - Eye Exam Eye Exam: EOMI, Normal appearance, PERRL Pupil Exam: NORMAL ACCOMODATION, PERRL - ENT Exam ENT Exam: Mucous Membranes Moist, Normal Exam - Neck Exam Neck exam: Positive for: Normal Inspection - Respiratory Exam Respiratory Exam: Decreased Breath Sounds - Cardiovascular Exam Cardiovascular Exam: REGULAR RHYTHM, +S1, +S2 - GI/Abdominal Exam GI & Abdominal Exam: Diminished Bowel Sounds, Soft - Rectal Exam Rectal Exam: Deferred Results - Vital Signs Recent Vital Signs: Last Vital Signs Temp 97.3 F L 01/22/18 20:20 Pulse 78 01/22/18 20:20 Resp 17 01/22/18 20:20 BP 71/29 L 01/22/18 20:20 Pulse Ox 99 01/22/18 16:50 - Labs Result Diagrams: 01/22/18 12:12 01/22/18 12:12 Labs: Laboratory Results - last 24 hr 01/22/18 01/22/18 01/22/18 12:12 12:12 12:31 WBC 9.5 RBC 1.39 L Hgb 4.0 L* D Hct 12.4 L MCV 89.1 D MCH 28.7 MCHC 32.1 L RDW 20.4 H Plt Count 64 L D MPV 10.9 Neut % (Auto) 91.8 H Lymph % (Auto) 4.2 L [place] % (Auto) 3.5 Eos % (Auto) 0.2 Baso % (Auto) 0.3 Neut # (Auto) 8.7 H Lymph # (Auto) 0.4 L [place] # (Auto) 0.3 Eos # (Auto) 0.0 Baso # (Auto) 0.0 Neutrophils % (Manual) 88 H Band Neutrophils % 5 H Lymphocytes % (Manual) 4 L Monocytes % (Manual) 2 Eosinophils % (Manual) 1 Platelet Estimate Decreased L Hypochromasia (manual) Slight Anisocytosis (manual) Moderate pO2 36 VBG pH 7.22 L VBG pCO2 70 H* VBG HCO3 23.1 VBG Total CO2 30.7 H VBG O2 Sat (Calc) 70.6 H VBG Base Excess -0.9 L VBG Potassium 3.3 L Glucose 105 Lactate 1.3 FiO2 Crit Value Called To Dr myrick Crit Value Called By Sam coronado reed fixer Crit Value Read Back Y Blood Gas Notified Time 1237 Sodium 137 139.0 Potassium 3.6 Chloride 98 103.0 Carbon Dioxide 27 Anion Gap 15 BUN 112 H* D Creatinine 3.4 H Est GFR ( Amer) 21 Est GFR (Non-Af Amer) 17 Random Glucose 122 H Calcium 7.4 L Total Bilirubin 0.2 AST 7 L D ALT 32 Alkaline Phosphatase 56 Troponin I 0.0440 NT-Pro-B Natriuret Pep 91022 H Total Protein 3.9 L Albumin 2.1 L Globulin 1.7 L Albumin/Globulin Ratio 1.2 Venous Blood Potassium 3.3 L Blood Type Antibody Screen 01/22/18 01/22/18 12:48 15:45 WBC RBC Hgb Hct MCV MCH MCHC RDW Plt Count MPV Neut % (Auto) Lymph % (Auto) [place] % (Auto) Eos % (Auto) Baso % (Auto) Neut # (Auto) Lymph # (Auto) [place] # (Auto) Eos # (Auto) Baso # (Auto) Neutrophils % (Manual) Band Neutrophils % Lymphocytes % (Manual) Monocytes % (Manual) Eosinophils % (Manual) Platelet Estimate Hypochromasia (manual) Anisocytosis (manual) pO2 29 L VBG pH 7.26 L VBG pCO2 63 H VBG HCO3 23.3 VBG Total CO2 30.2 H VBG O2 Sat (Calc) 57.9 VBG Base Excess -0.2 L VBG Potassium 3.3 L Glucose 97 Lactate 1.5 FiO2 21.0 Crit Value Called To Crit Value Called By Crit Value Read Back Blood Gas Notified Time Sodium 139.0 Potassium Chloride 105.0 Carbon Dioxide Anion Gap BUN Creatinine Est GFR ( Amer) Est GFR (Non-Af Amer) Random Glucose Calcium Total Bilirubin AST ALT Alkaline Phosphatase Troponin I NT-Pro-B Natriuret Pep Total Protein Albumin Globulin Albumin/Globulin Ratio Venous Blood Potassium 3.3 L Blood Type A POSITIVE Antibody Screen Negative
[2018-01-23] MEDS: Piperacill/Tazo 2.25gm in Dex 2.25 GM/50 ML BAG IVPB SCH ×3 (02:00→17:53)
[2018-01-23] MEDS: MethylPREDNISolone 40 mg Vial IVP SCH ×3 (06:10→22:50)
[2018-01-23] MEDS: Pantoprazole 80 MG in Sodium Chloride 0.9% 100 ML IVPB SCH (06:10)
[2018-01-23 06:30] LABS: HEMOGLOBIN 8.6 g/dL (12.0-18.0); LYMPH # 0.1 K/uL (1.0-4.3); LYMPH % 1.2 % (20.0-40.0); MEAN CELL VOLUME 86.3 fL (80.0-94.0); MEAN CORPUSCULAR HEMOGLOBIN 29.8 pg (27.0-31.0); MEAN CORPUSCULAR HGB CONC 34.5 g/dL (33.0-37.0); MEAN PLATELET VOLUME 10.2 fL (7.2-11.7); MONO # 0.1 K/uL (0.0-0.8); MONO % 0.9 % (0.0-10.0); NEUT % 97.9 % (50.0-75.0); PLATELET COUNT 55 K/uL (130-400); RBC 2.87 Mil/uL (4.40-5.90); RED CELL DISTRIBUTION WIDTH 15.6 % (11.5-14.5); WHITE BLOOD COUNT 8.2 K/uL (4.8-10.8)
[2018-01-23] MEDS: Levothyroxine 100 MCG TAB PO SCH (06:30)
[2018-01-23 06:43] LABS: ALBUMIN 2.1 g/dL (3.5-5.0); CALCIUM 7.5 mg/dl (8.6-10.4)
[2018-01-23] MEDS: Albuterol-Ipratrop 3 mg / 0.5 (3 ml) UD INH SCH ×2 (07:40→14:00)
[2018-01-23] MEDS: Fluticasone-Salmeterol 250-50mcg Diskus INH SCH (07:40)
[2018-01-23 08:50] LABS: BANDS 5 % (0-2); LYMPHOCYTE 2 % (20-40); MONOCYTE 1 % (0-10); NEUTROPHIL 92 % (50-75); PLATELET ESTIMATE DECREASED (NORMAL); TOTAL CELLS COUNTED 100
[2018-01-23 08:51] LABS: ANISOCYTOSIS SLIGHT; HYPOCHROMIC SLIGHT
[2018-01-23] MEDS: Azithromycin 500 MG in Sodium Chloride 0.9% 250 ML IVPB SCH (09:15)
--- NOTE | 2018-01-23 09:51 | CP.PCM.CON ---
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 In the ED labwork was done and showed the patient had Hb of 4. Patient hypotensive with blood pressure of 78/30. s/p several units prbcs blood transfusions since 01/22. Has dementia, cannot obtain further hx from patient. Dialysis started due to severe azotemia- BUN of 190 and persistent congestion. Twice weekly dialysis problematic as pt increasingly dyspneic between treatments 12 Point ROS unobtainable as patient is currently altered. Review of Systems - Review of Systems Systems not reviewed;Unavailable: Altered Mental Status Past Patient History - Infectious Disease Hx of Infectious Diseases: None - Past Medical History & Family History Past Medical History?: Yes Past Family History: Reviewed and not pertinent - Past Social History Smoking Status: Former Smoker Chewing Tobacco Use: No Cigar Use: No Alcohol: None Drugs: Denies Home Situation {Lives}: Half-Way - CARDIAC Hx Cardiac Disorders: Yes Hx Atrial Fibrillation: Yes Hx Congestive Heart Failure: Yes Hx Hypertension: Yes - PULMONARY Hx Respiratory Disorders: Yes Hx Bronchitis: Yes Hx Chronic Obstructive Pulmonary Disease (COPD): Yes Hx Emphysema: Yes Hx Pneumonia: Yes - NEUROLOGICAL Hx Neurological Disorder: No - HEENT Hx HEENT Problems: Yes Hx Cataracts: Yes - RENAL Hx Chronic Kidney Disease: Yes Hx Dialysis: Yes Type of Dialysis Access: PermaCath Date of Last Dialysis Treatment: 01/20/18 Hx Kidney Stones: No - ENDOCRINE/METABOLIC Hx Endocrine Disorders: Yes Hx Hypothyroidism: Yes - HEMATOLOGICAL/ONCOLOGICAL Hx Blood Disorders: Yes Hx Anemia: Yes Hx Blood Transfusions: Yes Hx Human Immunodeficiency Virus (HIV): No Hx Sickle Cell Disease: No - INTEGUMENTARY Hx Dermatological Problems: No - MUSCULOSKELETAL/RHEUMATOLOGICAL Hx Musculoskeletal Disorders: Yes Hx Arthritis: Yes Hx Falls: No Hx Osteoporosis: Yes - GASTROINTESTINAL Hx Gastrointestinal Disorders: Yes Hx Crohn's Disease: No Hx Diverticulitis: No Hx Gall Bladder Disease: No Hx Gastritis: Yes Hx Pancreatitis: No Other/Comment: Ca of colon - GENITOURINARY/GYNECOLOGICAL Hx Genitourinary Disorders: No Hx Sexually Transmitted Disorders: No - PSYCHIATRIC Hx Anxiety: No Hx Bipolar Disorder: No Hx Depression: No Hx Post Traumatic Stress Disorder: No Hx Schizophrenia: No Hx Substance Use: No - SURGICAL HISTORY Hx Surgeries: Yes Hx Joint Replacement: Yes (left hip replacement) Hx Orthopedic Surgery: Yes (hip surgery) Other/Comment: colon resection 06/2016 - ANESTHESIA Hx Anesthesia: Yes Hx Anesthesia Reactions: No Hx Malignant Hyperthermia: No Meds Allergies/Adverse Reactions: Allergies Allergy/AdvReac Type Severity Reaction Status Date / Time No Known Allergies Allergy Verified 01/22/18 11:49 - Medications Medications: Current Medications Acetaminophen (Tylenol 325mg Tab) 650 mg PO Q4 PRN PRN Reason: Pain, Mild (1-3) Albuterol/Ipratropium (Duoneb 3 Mg/0.5 Mg (3 Ml) Ud) 3 ml INH RQ6 [facility] Last Admin: 01/23/18 07:40 Dose: 3 ml Ferrous Sulfate (Feosol) 325 mg PO BID [facility] Folic Acid (Folic Acid) 1 mg PO DAILY [facility] Pantoprazole Sodium 80 mg/ (Sodium Chloride) 100 mls @ 10 mls/hr IVPB .Q10H [facility] PRN Reason: 8 MG/HR Last Admin: 01/23/18 06:10 Dose: 10 mls/hr Azithromycin 500 mg/ Sodium (Chloride) 250 mls @ 250 mls/hr IVPB DAILY [facility] PRN Reason: Protocol Last Admin: 01/23/18 09:15 Dose: 250 mls/hr Piperacillin Sod/Tazobactam Sod (Zosyn 2.25 Gm Iv Premix) 2.25 gm in 50 mls @ 100 mls/hr IVPB Q8H [facility] PRN Reason: Protocol Last Admin: 01/23/18 09:15 Dose: 100 mls/hr Levothyroxine Sodium (Synthroid) 100 mcg PO DAILY@0630 [facility] Last Admin: 01/23/18 06:30 Dose: Not Given Magnesium Hydroxide (Milk Of Magnesia) 30 ml PO HS PRN PRN Reason: Constipation Methylprednisolone (Solu-Medrol) 40 mg IVP Q8 [facility] Last Admin: 01/23/18 06:10 Dose: 40 mg Fluticasone/Salmeterol (Advair Diskus 250/50) 1 puff INH RQ12 [facility] Sucralfate (Carafate Oral Susp) 1 gm PO BID [facility] Physical Exam - Constitutional Appears: Confused, Chronically Ill - Head Exam Head Exam: ATRAUMATIC, NORMAL INSPECTION - Eye Exam Eye Exam: EOMI, Normal appearance - Neck Exam Neck exam: Positive for: Normal Inspection. Negative for: Tenderness - Respiratory Exam Respiratory Exam: Rhonchi, Respiratory Distress - Cardiovascular Exam Cardiovascular Exam: Irregular Rhythm, +S1 - GI/Abdominal Exam GI & Abdominal Exam: Soft. absent: Tenderness - Extremities Exam Extremities exam: Positive for: normal inspection. Negative for: tenderness - Neurological Exam Neurological exam: Altered - Skin Skin Exam: Dry, Warm Results - Vital Signs Recent Vital Signs: Last Vital Signs Temp 97.5 F L 01/23/18 08:00 Pulse 90 01/23/18 09:01 Resp 15 01/23/18 09:01 BP 81/34 L 01/23/18 09:01 Pulse Ox 100 01/23/18 09:01 - Labs Result Diagrams: 01/23/18 06:22 01/23/18 06:17 Labs: Laboratory Results - last 24 hr 01/22/18 01/22/18 01/22/18 12:12 12:12 12:31 WBC 9.5 RBC 1.39 L Hgb 4.0 L* D Hct 12.4 L MCV 89.1 D MCH 28.7 MCHC 32.1 L RDW 20.4 H Plt Count 64 L D MPV 10.9 Neut % (Auto) 91.8 H Lymph % (Auto) 4.2 L [place] % (Auto) 3.5 Eos % (Auto) 0.2 Baso % (Auto) 0.3 Neut # (Auto) 8.7 H Lymph # (Auto) 0.4 L [place] # (Auto) 0.3 Eos # (Auto) 0.0 Baso # (Auto) 0.0 Neutrophils % (Manual) 88 H Band Neutrophils % 5 H Lymphocytes % (Manual) 4 L Monocytes % (Manual) 2 Eosinophils % (Manual) 1 Platelet Estimate Decreased L Hypochromasia (manual) Slight Anisocytosis (manual) Moderate pO2 36 VBG pH 7.22 L VBG pCO2 70 H* VBG HCO3 23.1 VBG Total CO2 30.7 H VBG O2 Sat (Calc) 70.6 H VBG Base Excess -0.9 L VBG Potassium 3.3 L Glucose 105 Lactate 1.3 FiO2 Crit Value Called To Dr myrick Crit Value Called By Sam coronado backup administrator Crit Value Read Back Y Blood Gas Notified Time 1237 Sodium 137 139.0 Potassium 3.6 Chloride 98 103.0 Carbon Dioxide 27 Anion Gap 15 BUN 112 H* D Creatinine 3.4 H Est GFR ( Amer) 21 Est GFR (Non-Af Amer) 17 Random Glucose 122 H Calcium 7.4 L Phosphorus Magnesium Total Bilirubin 0.2 AST 7 L D ALT 32 Alkaline Phosphatase 56 Troponin I 0.0440 NT-Pro-B Natriuret Pep 22874 H Total Protein 3.9 L Albumin 2.1 L Globulin 1.7 L Albumin/Globulin Ratio 1.2 Alpha Fetoprotein Carcinoembryonic Ag CA 19-9 Antigen Venous Blood Potassium 3.3 L Blood Type Antibody Screen 01/22/18 01/22/18 01/23/18 12:48 15:45 06:17 WBC RBC Hgb Hct MCV MCH MCHC RDW Plt Count MPV Neut % (Auto) Lymph % (Auto) [place] % (Auto) Eos % (Auto) Baso % (Auto) Neut # (Auto) Lymph # (Auto) [place] # (Auto) Eos # (Auto) Baso # (Auto) Neutrophils % (Manual) Band Neutrophils % Lymphocytes % (Manual) Monocytes % (Manual) Eosinophils % (Manual) Platelet Estimate Hypochromasia (manual) Anisocytosis (manual) pO2 29 L VBG pH 7.26 L VBG pCO2 63 H VBG HCO3 23.3 VBG Total CO2 30.2 H VBG O2 Sat (Calc) 57.9 VBG Base Excess -0.2 L VBG Potassium 3.3 L Glucose 97 Lactate 1.5 FiO2 21.0 Crit Value Called To Crit Value Called By Crit Value Read Back Blood Gas Notified Time Sodium 139.0 Potassium Chloride 105.0 Carbon Dioxide Anion Gap BUN Creatinine Est GFR ( Amer) Est GFR (Non-Af Amer) Random Glucose Calcium Phosphorus Magnesium Total Bilirubin AST ALT Alkaline Phosphatase Troponin I NT-Pro-B Natriuret Pep Total Protein Albumin Globulin Albumin/Globulin Ratio Alpha Fetoprotein 1.6 Carcinoembryonic Ag CA 19-9 Antigen Venous Blood Potassium 3.3 L Blood Type A POSITIVE Antibody Screen Negative 01/23/18 01/23/18 01/23/18 06:17 06:17 06:22 WBC 8.2 RBC 2.87 L Hgb 8.6 L D Hct 24.8 L MCV 86.3 D MCH 29.8 MCHC 34.5 RDW 15.6 H Plt Count 55 L MPV 10.2 Neut % (Auto) 97.9 H Lymph % (Auto) 1.2 L [place] % (Auto) 0.9 Eos % (Auto) 0.0 Baso % (Auto) 0.0 Neut # (Auto) 8.0 H Lymph # (Auto) 0.1 L [place] # (Auto) 0.1 Eos # (Auto) 0.0 Baso # (Auto) 0.0 Neutrophils % (Manual) 92 H Band Neutrophils % 5 H Lymphocytes % (Manual) 2 L Monocytes % (Manual) 1 Eosinophils % (Manual) Platelet Estimate Decreased L Hypochromasia (manual) Slight Anisocytosis (manual) Slight pO2 VBG pH VBG pCO2 VBG HCO3 VBG Total CO2 VBG O2 Sat (Calc) VBG Base Excess VBG Potassium Glucose Lactate FiO2 Crit Value Called To Crit Value Called By Crit Value Read Back Blood Gas Notified Time Sodium 140 Potassium 3.7 Chloride 103 Carbon Dioxide 29 Anion Gap 12 BUN 60 H Creatinine 2.0 H Est GFR ( Amer) 39 Est GFR (Non-Af Amer) 32 Random Glucose 110 Calcium 7.5 L Phosphorus 3.3 Magnesium 2.2 Total Bilirubin 0.7 AST 13 L D ALT 31 Alkaline Phosphatase 52 Troponin I NT-Pro-B Natriuret Pep Total Protein 4.2 L Albumin 2.1 L Globulin 2.1 L Albumin/Globulin Ratio 1.0 Alpha Fetoprotein Carcinoembryonic Ag 3.9 H CA 19-9 Antigen 22.4 Venous Blood Potassium Blood Type Antibody Screen Assessment & Plan (1) ESRD (end stage renal disease) Status: Acute (2) Severe anemia Status: Acute (3) Acute CHF Status: Acute (4) Atrial fibrillation with rapid ventricular response Status: Chronic - Assessment and Plan (Free Text) Plan: Agree with blood transfusions ang GI workup Continue PPIs If CHF worsens will need dialysis again, will follow
--- NOTE | 2018-01-23 10:38 | CP.PCM.PN ---
Subjective - Date & Time of Evaluation Date of Evaluation: 01/23/18 Time of Evaluation: 13:45 - Subjective Subjective: clinically same Objective - Vital Signs/Intake and Output Vital Signs (last 24 hours): Temp Pulse Resp BP Pulse Ox 97.5 F L 97 H 14 107/26 L 95 01/23/18 08:00 01/23/18 10:01 01/23/18 10:01 01/23/18 10:01 01/23/18 10:01 Intake and Output: 01/23/18 01/23/18 06:59 18:59 Intake Total 2305 90 Output Total 700 0 Balance 1605 90 - Medications Medications: Current Medications Acetaminophen (Tylenol 325mg Tab) 650 mg PO Q4 PRN PRN Reason: Pain, Mild (1-3) Albuterol/Ipratropium (Duoneb 3 Mg/0.5 Mg (3 Ml) Ud) 3 ml INH RQ6 [facility] Last Admin: 01/23/18 07:40 Dose: 3 ml Ferrous Sulfate (Feosol) 325 mg PO BID [facility] Folic Acid (Folic Acid) 1 mg PO DAILY [facility] Pantoprazole Sodium 80 mg/ (Sodium Chloride) 100 mls @ 10 mls/hr IVPB .Q10H [facility] PRN Reason: 8 MG/HR Last Admin: 01/23/18 06:10 Dose: 10 mls/hr Azithromycin 500 mg/ Sodium (Chloride) 250 mls @ 250 mls/hr IVPB DAILY [facility] PRN Reason: Protocol Last Admin: 01/23/18 09:15 Dose: 250 mls/hr Piperacillin Sod/Tazobactam Sod (Zosyn 2.25 Gm Iv Premix) 2.25 gm in 50 mls @ 100 mls/hr IVPB Q8H [facility] PRN Reason: Protocol Last Admin: 01/23/18 09:15 Dose: 100 mls/hr Levothyroxine Sodium (Synthroid) 100 mcg PO DAILY@0630 [facility] Last Admin: 01/23/18 06:30 Dose: Not Given Magnesium Hydroxide (Milk Of Magnesia) 30 ml PO HS PRN PRN Reason: Constipation Methylprednisolone (Solu-Medrol) 40 mg IVP Q8 [facility] Last Admin: 01/23/18 06:10 Dose: 40 mg Fluticasone/Salmeterol (Advair Diskus 250/50) 1 puff INH RQ12 [facility] Sucralfate (Carafate Oral Susp) 1 gm PO BID [facility]RE[facility] - Labs Labs: 01/23/18 06:22 01/23/18 06:17
[2018-01-23] MEDS: Sucralfate 1 gm/10 ml Oral Susp UD PO SCH ×2 (11:02→17:54)
[2018-01-23] MEDS ORDERED: Lactated Ringer's 1,000 ML IV ONE (12:30)
--- NOTE | 2018-01-23 12:35 | RAD ---
HISTORY: sob COMPARISON: Chest x-ray performed 01/22/18 TECHNIQUE: Chest, one view. FINDINGS: Examination limited by habitus and hypoinflation. Right IJ approach central venous catheter extends expected location of the cavoatrial junction. LUNGS: Mild to moderate pulmonary venous congestion. Biapical pleural thickening. Please note that chest x-ray has limited sensitivity for the detection of pulmonary masses. PLEURA: Small bilateral pleural effusions. No definite pneumothorax. CARDIOVASCULAR: Cardiomegaly. Atherosclerotic calcifications of the aorta. OSSEOUS STRUCTURES: Degenerative changes. Osseous demineralization. VISUALIZED UPPER ABDOMEN: Unremarkable. OTHER FINDINGS: None. IMPRESSION: Hypoinflation. Right IJ approach central venous catheter extends to the expected location of the cavoatrial junction. Mild to moderate pulmonary venous congestion.Small bilateral pleural effusions. Biapical pleural thickening. Cardiomegaly.
[2018-01-23] MEDS ORDERED: Etomidate 20 mg/10ml Inj IV ONE (12:41)
--- NOTE | 2018-01-23 13:48 | CP.CCUPN ---
<Thomas Garcia - Last Filed: 01/23/18 16:02> CCU Subjective - Physician Review Subjective (Free Text): Critical care progress note: Pt seen and examined at bedside. No acute events overnight. Patient is s/p 3 units PRBC. NPO for endoscopy today showing medium size hiatal hernia, erythematous antrum and duodenum. No other complaints. 12 Point ROS limited as patient is not AAO x 3 CCU Objective - Vital Signs / Intake & Output Vital Signs (Last 4 hours): Vital Signs Temp Pulse Resp BP Pulse Ox 01/23/18 12:00 98.4 F 90 17 100/23 L 100 01/23/18 11:01 98 H 26 H 92/21 L 95 01/23/18 11:00 100 H 16 96 01/23/18 10:01 97 H 14 107/26 L 95 Intake and Output (Last 8hrs): Intake & Output 01/22/18 01/23/18 01/23/18 22:59 06:59 14:59 Intake Total 845 1460 100 Output Total 700 0 Balance 845 760 100 Weight 117 lb 15.157 oz 117 lb 15.157 oz Intake: Intake, IV Amount 120 80 100 Left AC 50 Left Antecubital 20 80 50 Right Antecubital 100 Blood Product 675 1300 Red Blood Cells Cpd As1 325 Lr Unit [id number] Red Blood Cells Cpd As1 325 Lr Unit [id number] Red Blood Cells Cpd As1 325 Lr Unit [id number] Other 50 80 Red Blood Cells Cpd As1 40 Lr Unit [id number] Red Blood Cells Cpd As1 40 Lr Unit [id number] Red Blood Cells Cpd As1 50 Lr Unit [id number] Output: Urine 0 0 Urine, Voided 0 0 Other 700 Other: # Bowel Movements 1 - Physical Exam Physical Exam Limitations: Positive for: Altered Mental Status Head: Positive for: Atraumatic, Normocephalic Pupils: Positive for: PERRL Extroacular Muscles: Positive for: EOMI Mouth: Positive for: Moist Mucous Membranes Neck: Positive for: Normal Range of Motion. Negative for: JVD Respiratory/Chest: Positive for: Clear to Auscultation. Negative for: Wheezes, Rales Cardiovascular: Positive for: Regular Rate and Rhythm, Normal S1, S2 Abdomen: Positive for: Normal Bowel Sounds. Negative for: Tenderness, Distention Upper Extremity: Negative for: Cyanosis, Edema Lower Extremity: Negative for: Edema, CALF TENDERNESS Neurological: Positive for: CN II-XII Intact Skin: Positive for: Warm, Dry Psychiatric: Positive for: Oriented x 3 - Medications Active Medications: Active Medications Generic Name Dose Route Start Last Admin Trade Name Freq PRN Reason Stop Dose Admin Acetaminophen 650 mg 01/22/18 20:09 Tylenol 325mg Tab PO Q4 PRN Pain, Mild (1-3) Albuterol/Ipratropium 3 ml 01/23/18 00:00 01/23/18 07:40 Duoneb 3 Mg/0.5 Mg (3 Ml) Ud INH 3 ml RQ6 ANDREA Administration Ferrous Sulfate 325 mg 01/23/18 10:00 01/23/18 11:03 Feosol PO Not Given BID ANDREA Folic Acid 1 mg 01/23/18 10:00 Folic Acid PO DAILY ANDREA Pantoprazole Sodium 80 mg/ 100 mls @ 10 mls/hr 01/22/18 20:00 01/23/18 06:10 Sodium Chloride IVPB 10 mls/hr .Q10H ANDREA Administration 8 MG/HR Azithromycin 500 mg/ Sodium 250 mls @ 250 mls/hr 01/23/18 10:00 01/23/18 09: 15 Chloride IVPB 250 mls/hr DAILY ANDREA Administration Protocol Piperacillin Sod/Tazobactam Sod 2.25 gm in 50 mls @ 100 mls/hr 01/23/18 02:00 01/23/18 09:15 Zosyn 2.25 Gm Iv Premix IVPB 100 mls/hr Q8H ANDREA Administration Protocol Levothyroxine Sodium 100 mcg 01/23/18 06:30 01/23/18 06:30 Synthroid PO Not Given DAILY@0630 ANDREA Magnesium Hydroxide 30 ml 01/22/18 20:09 Milk Of Magnesia PO HS PRN Constipation Methylprednisolone 40 mg 01/22/18 22:00 01/23/18 06:10 Solu-Medrol IVP 40 mg Q8 ANDREA Administration Fluticasone/Salmeterol 1 puff 01/23/18 08:00 Advair Diskus 250/50 INH RQ12 ANDREA Sucralfate 1 gm 01/23/18 10:00 01/23/18 11:02 Carafate Oral Susp PO Not Given BID ANDREA - Patient Studies Lab Studies: Microbiology Studies 01/22/18 12:44 Blood Culture - Preliminary Blood NO GROWTH AFTER 24 HOURS 01/22/18 12:44 Gram Stain - Final Blood Lab Studies 01/23/18 01/23/18 01/23/18 Range/Units 06:22 06:17 06:17 WBC 8.2 (4.8-10.8) K/uL RBC 2.87 L (4.40-5.90) Mil/uL Hgb 8.6 L D (12.0-18.0) g/dL Hct 24.8 L (35.0-51.0) % MCV 86.3 D (80.0-94.0) fL MCH 29.8 (27.0-31.0) pg MCHC 34.5 (33.0-37.0) g/dL RDW 15.6 H (11.5-14.5) % Plt Count 55 L (130-400) K/uL MPV 10.2 (7.2-11.7) fL Neut % (Auto) 97.9 H (50.0-75.0) % Lymph % (Auto) 1.2 L (20.0-40.0) % [place] % (Auto) 0.9 (0.0-10.0) % Eos % (Auto) 0.0 (0.0-4.0) % Baso % (Auto) 0.0 (0.0-2.0) % Neut # (Auto) 8.0 H (1.8-7.0) K/uL Lymph # (Auto) 0.1 L (1.0-4.3) K/uL [place] # (Auto) 0.1 (0.0-0.8) K/uL Eos # (Auto) 0.0 (0.0-0.7) K/uL Baso # (Auto) 0.0 (0.0-0.2) K/uL Neutrophils % (Manual) 92 H (50-75) % Band Neutrophils % 5 H (0-2) % Lymphocytes % (Manual) 2 L (20-40) % Monocytes % (Manual) 1 (0-10) % Platelet Estimate Decreased L (NORMAL) Hypochromasia (manual) Slight Anisocytosis (manual) Slight Smear Path Review pO2 (30-55) mm/Hg VBG pH (7.32-7.43) VBG pCO2 (40-60) mmHg VBG HCO3 mmol/L VBG Total CO2 (22-28) mmol/L VBG O2 Sat (Calc) (40-65) % VBG Base Excess (0.0-2.0) mmol/L VBG Potassium (3.6-5.2) mmol/L Sodium 140 (132-148) mmol/l Chloride 103 (98-107) mmol/L Glucose (75-110) mg/dl Lactate (0.7-2.1) mmol/L FiO2 % Potassium 3.7 (3.6-5.2) mmol/L Carbon Dioxide 29 (22-30) mmol/L Anion Gap 12 (10-20) BUN 60 H (9-20) mg/dL Creatinine 2.0 H (0.8-1.5) mg/dL Est GFR ( Amer) 39 Est GFR (Non-Af Amer) 32 Random Glucose 110 (75-110) mg/dL Calcium 7.5 L (8.6-10.4) mg/dl Phosphorus 3.3 (2.5-4.5) mg/dL Magnesium 2.2 (1.6-2.3) mg/dL Total Bilirubin 0.7 (0.2-1.3) mg/dL AST 13 L D (17-59) U/L ALT 31 (21-72) U/L Alkaline Phosphatase 52 (38-126) U/L Total Protein 4.2 L (6.3-8.3) g/dL Albumin 2.1 L (3.5-5.0) g/dL Globulin 2.1 L (2.2-3.9) gm/dL Albumin/Globulin Ratio 1.0 (1.0-2.1) Alpha Fetoprotein (0.0-7.5) ng/mL Carcinoembryonic Ag 3.9 H (0-3.0) ng/mL CA 19-9 Antigen 22.4 (0-37) U/mL Venous Blood Potassium (3.6-5.2) mmol/L Blood Type Antibody Screen 01/23/18 01/22/18 01/22/18 Range/Units 06:17 15:45 12:48 WBC (4.8-10.8) K/uL RBC (4.40-5.90) Mil/uL Hgb (12.0-18.0) g/dL Hct (35.0-51.0) % MCV (80.0-94.0) fL MCH (27.0-31.0) pg MCHC (33.0-37.0) g/dL RDW (11.5-14.5) % Plt Count (130-400) K/uL MPV (7.2-11.7) fL Neut % (Auto) (50.0-75.0) % Lymph % (Auto) (20.0-40.0) % [place] % (Auto) (0.0-10.0) % Eos % (Auto) (0.0-4.0) % Baso % (Auto) (0.0-2.0) % Neut # (Auto) (1.8-7.0) K/uL Lymph # (Auto) (1.0-4.3) K/uL [place] # (Auto) (0.0-0.8) K/uL Eos # (Auto) (0.0-0.7) K/uL Baso # (Auto) (0.0-0.2) K/uL Neutrophils % (Manual) (50-75) % Band Neutrophils % (0-2) % Lymphocytes % (Manual) (20-40) % Monocytes % (Manual) (0-10) % Platelet Estimate (NORMAL) Hypochromasia (manual) Anisocytosis (manual) Smear Path Review pO2 29 L (30-55) mm/Hg VBG pH 7.26 L (7.32-7.43) VBG pCO2 63 H (40-60) mmHg VBG HCO3 23.3 mmol/L VBG Total CO2 30.2 H (22-28) mmol/L VBG O2 Sat (Calc) 57.9 (40-65) % VBG Base Excess -0.2 L (0.0-2.0) mmol/L VBG Potassium 3.3 L (3.6-5.2) mmol/L Sodium 139.0 (132-148) mmol/l Chloride 105.0 (98-107) mmol/L Glucose 97 (75-110) mg/dl Lactate 1.5 (0.7-2.1) mmol/L FiO2 21.0 % Potassium (3.6-5.2) mmol/L Carbon Dioxide (22-30) mmol/L Anion Gap (10-20) BUN (9-20) mg/dL Creatinine (0.8-1.5) mg/dL Est GFR ( Amer) Est GFR (Non-Af Amer) Random Glucose (75-110) mg/dL Calcium (8.6-10.4) mg/dl Phosphorus (2.5-4.5) mg/dL Magnesium (1.6-2.3) mg/dL Total Bilirubin (0.2-1.3) mg/dL AST (17-59) U/L ALT (21-72) U/L Alkaline Phosphatase (38-126) U/L Total Protein (6.3-8.3) g/dL Albumin (3.5-5.0) g/dL Globulin (2.2-3.9) gm/dL Albumin/Globulin Ratio (1.0-2.1) Alpha Fetoprotein 1.6 (0.0-7.5) ng/mL Carcinoembryonic Ag (0-3.0) ng/mL CA 19-9 Antigen (0-37) U/mL Venous Blood Potassium 3.3 L (3.6-5.2) mmol/L Blood Type A POSITIVE Antibody Screen Negative 01/22/18 Range/Units 12:12 WBC (4.8-10.8) K/uL RBC (4.40-5.90) Mil/uL Hgb (12.0-18.0) g/dL Hct (35.0-51.0) % MCV (80.0-94.0) fL MCH (27.0-31.0) pg MCHC (33.0-37.0) g/dL RDW (11.5-14.5) % Plt Count (130-400) K/uL MPV (7.2-11.7) fL Neut % (Auto) (50.0-75.0) % Lymph % (Auto) (20.0-40.0) % [place] % (Auto) (0.0-10.0) % Eos % (Auto) (0.0-4.0) % Baso % (Auto) (0.0-2.0) % Neut # (Auto) (1.8-7.0) K/uL Lymph # (Auto) (1.0-4.3) K/uL [place] # (Auto) (0.0-0.8) K/uL Eos # (Auto) (0.0-0.7) K/uL Baso # (Auto) (0.0-0.2) K/uL Neutrophils % (Manual) (50-75) % Band Neutrophils % (0-2) % Lymphocytes % (Manual) (20-40) % Monocytes % (Manual) (0-10) % Platelet Estimate (NORMAL) Hypochromasia (manual) Anisocytosis (manual) Smear Path Review pO2 (30-55) mm/Hg VBG pH (7.32-7.43) VBG pCO2 (40-60) mmHg VBG HCO3 mmol/L VBG Total CO2 (22-28) mmol/L VBG O2 Sat (Calc) (40-65) % VBG Base Excess (0.0-2.0) mmol/L VBG Potassium (3.6-5.2) mmol/L Sodium (132-148) mmol/l Chloride (98-107) mmol/L Glucose (75-110) mg/dl Lactate (0.7-2.1) mmol/L FiO2 % Potassium (3.6-5.2) mmol/L Carbon Dioxide (22-30) mmol/L Anion Gap (10-20) BUN (9-20) mg/dL Creatinine (0.8-1.5) mg/dL Est GFR ( Amer) Est GFR (Non-Af Amer) Random Glucose (75-110) mg/dL Calcium (8.6-10.4) mg/dl Phosphorus (2.5-4.5) mg/dL Magnesium (1.6-2.3) mg/dL Total Bilirubin (0.2-1.3) mg/dL AST (17-59) U/L ALT (21-72) U/L Alkaline Phosphatase (38-126) U/L Total Protein (6.3-8.3) g/dL Albumin (3.5-5.0) g/dL Globulin (2.2-3.9) gm/dL Albumin/Globulin Ratio (1.0-2.1) Alpha Fetoprotein (0.0-7.5) ng/mL Carcinoembryonic Ag (0-3.0) ng/mL CA 19-9 Antigen (0-37) U/mL Venous Blood Potassium (3.6-5.2) mmol/L Blood Type Antibody Screen Laboratory Results - last 24 hr 01/22/18 01/22/18 01/22/18 12:12 12:48 15:45 WBC RBC Hgb Hct MCV MCH MCHC RDW Plt Count MPV Neut % (Auto) Lymph % (Auto) [place] % (Auto) Eos % (Auto) Baso % (Auto) Neut # (Auto) Lymph # (Auto) [place] # (Auto) Eos # (Auto) Baso # (Auto) Neutrophils % (Manual) Band Neutrophils % Lymphocytes % (Manual) Monocytes % (Manual) Platelet Estimate Hypochromasia (manual) Anisocytosis (manual) Smear Path Review pO2 29 L VBG pH 7.26 L VBG pCO2 63 H VBG HCO3 23.3 VBG Total CO2 30.2 H VBG O2 Sat (Calc) 57.9 VBG Base Excess -0.2 L VBG Potassium 3.3 L Sodium 139.0 Chloride 105.0 Glucose 97 Lactate 1.5 FiO2 21.0 Potassium Carbon Dioxide Anion Gap BUN Creatinine Est GFR ( Amer) Est GFR (Non-Af Amer) Random Glucose Calcium Phosphorus Magnesium Total Bilirubin AST ALT Alkaline Phosphatase Total Protein Albumin Globulin Albumin/Globulin Ratio Alpha Fetoprotein Carcinoembryonic Ag CA 19-9 Antigen Venous Blood Potassium 3.3 L Blood Type A POSITIVE Antibody Screen Negative 01/23/18 01/23/18 01/23/18 06:17 06:17 06:17 WBC RBC Hgb Hct MCV MCH MCHC RDW Plt Count MPV Neut % (Auto) Lymph % (Auto) [place] % (Auto) Eos % (Auto) Baso % (Auto) Neut # (Auto) Lymph # (Auto) [place] # (Auto) Eos # (Auto) Baso # (Auto) Neutrophils % (Manual) Band Neutrophils % Lymphocytes % (Manual) Monocytes % (Manual) Platelet Estimate Hypochromasia (manual) Anisocytosis (manual) Smear Path Review pO2 VBG pH VBG pCO2 VBG HCO3 VBG Total CO2 VBG O2 Sat (Calc) VBG Base Excess VBG Potassium Sodium 140 Chloride 103 Glucose Lactate FiO2 Potassium 3.7 Carbon Dioxide 29 Anion Gap 12 BUN 60 H Creatinine 2.0 H Est GFR ( Amer) 39 Est GFR (Non-Af Amer) 32 Random Glucose 110 Calcium 7.5 L Phosphorus 3.3 Magnesium 2.2 Total Bilirubin 0.7 AST 13 L D ALT 31 Alkaline Phosphatase 52 Total Protein 4.2 L Albumin 2.1 L Globulin 2.1 L Albumin/Globulin Ratio 1.0 Alpha Fetoprotein 1.6 Carcinoembryonic Ag 3.9 H CA 19-9 Antigen 22.4 Venous Blood Potassium Blood Type Antibody Screen 01/23/18 06:22 WBC 8.2 RBC 2.87 L Hgb 8.6 L D Hct 24.8 L MCV 86.3 D MCH 29.8 MCHC 34.5 RDW 15.6 H Plt Count 55 L MPV 10.2 Neut % (Auto) 97.9 H Lymph % (Auto) 1.2 L [place] % (Auto) 0.9 Eos % (Auto) 0.0 Baso % (Auto) 0.0 Neut # (Auto) 8.0 H Lymph # (Auto) 0.1 L [place] # (Auto) 0.1 Eos # (Auto) 0.0 Baso # (Auto) 0.0 Neutrophils % (Manual) 92 H Band Neutrophils % 5 H Lymphocytes % (Manual) 2 L Monocytes % (Manual) 1 Platelet Estimate Decreased L Hypochromasia (manual) Slight Anisocytosis (manual) Slight Smear Path Review pO2 VBG pH VBG pCO2 VBG HCO3 VBG Total CO2 VBG O2 Sat (Calc) VBG Base Excess VBG Potassium Sodium Chloride Glucose Lactate FiO2 Potassium Carbon Dioxide Anion Gap BUN Creatinine Est GFR ( Amer) Est GFR (Non-Af Amer) Random Glucose Calcium Phosphorus Magnesium Total Bilirubin AST ALT Alkaline Phosphatase Total Protein Albumin Globulin Albumin/Globulin Ratio Alpha Fetoprotein Carcinoembryonic Ag CA 19-9 Antigen Venous Blood Potassium Blood Type Antibody Screen Review of Systems - Review of Systems All systems: reviewed and no additional remarkable complaints except (HPI) Critical Care Progress Note - Nutrition Nutrition: Nutrition Category Date Time Status Liquid Diet [DIET] Diets 01/23/18 Lunch Active Assessment/Plan - Assessment and Plan (Free Text) Assessment: 87 year old male with PMHx of ESRD (Saturday/Saturday), HTN, Atrial Fibrillation on Eliquis, CHF, COPD/Bronchitis, Gastritis, Hypothyroidism, Osteoporosis, Anemia, Pneumonia Arthritis, 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 Patient found to have Hb of 4 and hypotensive 78/30. s/p 3 units PRBC and EGD showing medium size hiatal hernia, erythematous antrum and duodenum. Neuro: - Altered - Head Ct showed no evidence of acute intracranial hemorrhage Pulm: - maintain SPO2 > 90% - NC as needed - CXR showed pulm effusion and associated consolidation, R> L - Duonebs as needed CV: - Hemodynamically stable - Maintain MAP> 65 GI: - Liquid diet - Hb of 4 , s/p 3 units PRBC Hb currently 8.6 - Cont on protonix ggt and carafate - GI consulted for recs - NPO for endoscopy today showing medium size hiatal hernia, erythematous antrum and duodenum. - Elevated BUN 60 - Cont to monitor H/H - Hold all anticoagulation Heme: - Hb of 4 - S/p transfuse 3 units of PRBC - Monitor H/H - Cont Feosol Endo: - maintain euglycemia - Cont levothyroxine daily Renal: - Plan for dialysis today as patient is more sob and CXR showed pulm vascular congestion - Patient receives dialysis mon/fri, received dialysis yesterday - Nephrology consulted for recs - Cr of 3.4 --> 2 today - Monitor I and O - Replete electrolytes as needed ID: - Afebrile - Wbc of 8.2 - Gram neg airam in blood cx, pending official report - Started on Zosyn and azithro - ID consulted for recs - F/u septic work up GI/DVT ppx Case and plan was reviewed and discussed in detail with Dr King. <Yinka King - Last Filed: 01/23/18 16:53> CCU Objective - Vital Signs / Intake & Output Vital Signs (Last 4 hours): Vital Signs Pulse Resp BP Pulse Ox 01/23/18 15:23 101 H 43 H 126/77 98 01/23/18 15:00 100 H 23 100 01/23/18 14:18 100 H 18 124/49 L 94 L 01/23/18 14:02 96 H 23 87/39 L 100 01/23/18 14:00 89 19 100 01/23/18 13:47 79 16 97/23 L 100 01/23/18 13:32 83 16 90/26 L 100 01/23/18 13:18 88 20 125/34 L 98 01/23/18 13:02 103 H 20 95/41 L 96 Intake and Output (Last 8hrs): Intake & Output 01/23/18 01/23/18 01/23/18 06:59 14:59 22:59 Intake Total 1460 370 Output Total 700 0 0 Balance 760 370 0 Weight 117 lb 15.157 oz Intake: Intake, IV Amount 80 370 Left AC 300 Left Antecubital 80 70 Blood Product 1300 Red Blood Cells Cpd As1 325 Lr Unit [id number] Red Blood Cells Cpd As1 325 Lr Unit [id number] Other 80 Red Blood Cells Cpd As1 40 Lr Unit [id number] Red Blood Cells Cpd As1 40 Lr Unit [id number] Output: Urine 0 0 0 Urine, Voided 0 0 0 Other 700 Other: # Bowel Movements 1 1 - Medications Active Medications: Active Medications Generic Name Dose Route Start Last Admin Trade Name Freq PRN Reason Stop Dose Admin Acetaminophen 650 mg 01/22/18 20:09 Tylenol 325mg Tab PO Q4 PRN Pain, Mild (1-3) Albuterol/Ipratropium 3 ml 01/23/18 00:00 01/23/18 14:00 Duoneb 3 Mg/0.5 Mg (3 Ml) Ud INH 3 ml RQ6 ANDREA Administration Ferrous Sulfate 325 mg 01/23/18 10:00 01/23/18 11:03 Feosol PO Not Given BID ANDREA Folic Acid 1 mg 01/23/18 10:00 01/23/18 14:40 Folic Acid PO Not Given DAILY ANDREA Azithromycin 500 mg/ Sodium 250 mls @ 250 mls/hr 01/23/18 10:00 01/23/18 09: 15 Chloride IVPB 250 mls/hr DAILY ANDREA Administration Protocol Piperacillin Sod/Tazobactam Sod 2.25 gm in 50 mls @ 100 mls/hr 01/23/18 02:00 01/23/18 09:15 Zosyn 2.25 Gm Iv Premix IVPB 100 mls/hr Q8H ANDREA Administration Protocol Levothyroxine Sodium 100 mcg 01/23/18 06:30 01/23/18 06:30 Synthroid PO Not Given DAILY@0630 [facility] Magnesium Hydroxide 30 ml 01/22/18 20:09 Milk Of Magnesia PO HS PRN Constipation Methylprednisolone 40 mg 01/22/18 22:00 01/23/18 14:40 Solu-Medrol IVP 40 mg Q8 ANDREA Administration Fluticasone/Salmeterol 1 puff 01/23/18 08:00 01/23/18 07:40 Advair Diskus 250/50 INH Not Given RQ12 [facility] Sucralfate 1 gm 01/23/18 10:00 01/23/18 11:02 Carafate Oral Susp PO Not Given BID ANDREA - Patient Studies Lab Studies: Microbiology Studies 01/22/18 12:44 Blood Culture - Preliminary Blood NO GROWTH AFTER 24 HOURS 01/22/18 12:44 Gram Stain - Final Blood Lab Studies 01/23/18 01/23/18 01/23/18 Range/Units 06:22 06:17 06:17 WBC 8.2 (4.8-10.8) K/uL RBC 2.87 L (4.40-5.90) Mil/uL Hgb 8.6 L D (12.0-18.0) g/dL Hct 24.8 L (35.0-51.0) % MCV 86.3 D (80.0-94.0) fL MCH 29.8 (27.0-31.0) pg MCHC 34.5 (33.0-37.0) g/dL RDW 15.6 H (11.5-14.5) % Plt Count 55 L (130-400) K/uL MPV 10.2 (7.2-11.7) fL Neut % (Auto) 97.9 H (50.0-75.0) % Lymph % (Auto) 1.2 L (20.0-40.0) % [place] % (Auto) 0.9 (0.0-10.0) % Eos % (Auto) 0.0 (0.0-4.0) % Baso % (Auto) 0.0 (0.0-2.0) % Neut # (Auto) 8.0 H (1.8-7.0) K/uL Lymph # (Auto) 0.1 L (1.0-4.3) K/uL [place] # (Auto) 0.1 (0.0-0.8) K/uL Eos # (Auto) 0.0 (0.0-0.7) K/uL Baso # (Auto) 0.0 (0.0-0.2) K/uL Neutrophils % (Manual) 92 H (50-75) % Band Neutrophils % 5 H (0-2) % Lymphocytes % (Manual) 2 L (20-40) % Monocytes % (Manual) 1 (0-10) % Platelet Estimate Decreased L (NORMAL) Hypochromasia (manual) Slight Anisocytosis (manual) Slight Smear Path Review Sodium 140 (132-148) mmol/L Potassium 3.7 (3.6-5.2) mmol/L Chloride 103 (98-107) mmol/L Carbon Dioxide 29 (22-30) mmol/L Anion Gap 12 (10-20) BUN 60 H (9-20) mg/dL Creatinine 2.0 H (0.8-1.5) mg/dL Est GFR ( Amer) 39 Est GFR (Non-Af Amer) 32 Random Glucose 110 (75-110) mg/dL Calcium 7.5 L (8.6-10.4) mg/dl Phosphorus 3.3 (2.5-4.5) mg/dL Magnesium 2.2 (1.6-2.3) mg/dL Total Bilirubin 0.7 (0.2-1.3) mg/dL AST 13 L D (17-59) U/L ALT 31 (21-72) U/L Alkaline Phosphatase 52 (38-126) U/L Total Protein 4.2 L (6.3-8.3) g/dL Albumin 2.1 L (3.5-5.0) g/dL Globulin 2.1 L (2.2-3.9) gm/dL Albumin/Globulin Ratio 1.0 (1.0-2.1) Alpha Fetoprotein (0.0-7.5) ng/mL Carcinoembryonic Ag 3.9 H (0-3.0) ng/mL CA 19-9 Antigen 22.4 (0-37) U/mL Blood Type Antibody Screen 01/23/18 01/22/18 01/22/18 Range/Units 06:17 12:48 12:12 WBC (4.8-10.8) K/uL RBC (4.40-5.90) Mil/uL Hgb (12.0-18.0) g/dL Hct (35.0-51.0) % MCV (80.0-94.0) fL MCH (27.0-31.0) pg MCHC (33.0-37.0) g/dL RDW (11.5-14.5) % Plt Count (130-400) K/uL MPV (7.2-11.7) fL Neut % (Auto) (50.0-75.0) % Lymph % (Auto) (20.0-40.0) % [place] % (Auto) (0.0-10.0) % Eos % (Auto) (0.0-4.0) % Baso % (Auto) (0.0-2.0) % Neut # (Auto) (1.8-7.0) K/uL Lymph # (Auto) (1.0-4.3) K/uL [place] # (Auto) (0.0-0.8) K/uL Eos # (Auto) (0.0-0.7) K/uL Baso # (Auto) (0.0-0.2) K/uL Neutrophils % (Manual) (50-75) % Band Neutrophils % (0-2) % Lymphocytes % (Manual) (20-40) % Monocytes % (Manual) (0-10) % Platelet Estimate (NORMAL) Hypochromasia (manual) Anisocytosis (manual) Smear Path Review Sodium (132-148) mmol/L Potassium (3.6-5.2) mmol/L Chloride (98-107) mmol/L Carbon Dioxide (22-30) mmol/L Anion Gap (10-20) BUN (9-20) mg/dL Creatinine (0.8-1.5) mg/dL Est GFR ( Amer) Est GFR (Non-Af Amer) Random Glucose (75-110) mg/dL Calcium (8.6-10.4) mg/dl Phosphorus (2.5-4.5) mg/dL Magnesium (1.6-2.3) mg/dL Total Bilirubin (0.2-1.3) mg/dL AST (17-59) U/L ALT (21-72) U/L Alkaline Phosphatase (38-126) U/L Total Protein (6.3-8.3) g/dL Albumin (3.5-5.0) g/dL Globulin (2.2-3.9) gm/dL Albumin/Globulin Ratio (1.0-2.1) Alpha Fetoprotein 1.6 (0.0-7.5) ng/mL Carcinoembryonic Ag (0-3.0) ng/mL CA 19-9 Antigen (0-37) U/mL Blood Type A POSITIVE Antibody Screen Negative Laboratory Results - last 24 hr 01/22/18 01/22/18 01/23/18 12:12 12:48 06:17 WBC RBC Hgb Hct MCV MCH MCHC RDW Plt Count MPV Neut % (Auto) Lymph % (Auto) [place] % (Auto) Eos % (Auto) Baso % (Auto) Neut # (Auto) Lymph # (Auto) [place] # (Auto) Eos # (Auto) Baso # (Auto) Neutrophils % (Manual) Band Neutrophils % Lymphocytes % (Manual) Monocytes % (Manual) Platelet Estimate Hypochromasia (manual) Anisocytosis (manual) Smear Path Review Sodium Potassium Chloride Carbon Dioxide Anion Gap BUN Creatinine Est GFR ( Amer) Est GFR (Non-Af Amer) Random Glucose Calcium Phosphorus Magnesium Total Bilirubin AST ALT Alkaline Phosphatase Total Protein Albumin Globulin Albumin/Globulin Ratio Alpha Fetoprotein 1.6 Carcinoembryonic Ag CA 19-9 Antigen Blood Type A POSITIVE Antibody Screen Negative 01/23/18 01/23/18 01/23/18 06:17 06:17 06:22 WBC 8.2 RBC 2.87 L Hgb 8.6 L D Hct 24.8 L MCV 86.3 D MCH 29.8 MCHC 34.5 RDW 15.6 H Plt Count 55 L MPV 10.2 Neut % (Auto) 97.9 H Lymph % (Auto) 1.2 L [place] % (Auto) 0.9 Eos % (Auto) 0.0 Baso % (Auto) 0.0 Neut # (Auto) 8.0 H Lymph # (Auto) 0.1 L [place] # (Auto) 0.1 Eos # (Auto) 0.0 Baso # (Auto) 0.0 Neutrophils % (Manual) 92 H Band Neutrophils % 5 H Lymphocytes % (Manual) 2 L Monocytes % (Manual) 1 Platelet Estimate Decreased L Hypochromasia (manual) Slight Anisocytosis (manual) Slight Smear Path Review Sodium 140 Potassium 3.7 Chloride 103 Carbon Dioxide 29 Anion Gap 12 BUN 60 H Creatinine 2.0 H Est GFR ( Amer) 39 Est GFR (Non-Af Amer) 32 Random Glucose 110 Calcium 7.5 L Phosphorus 3.3 Magnesium 2.2 Total Bilirubin 0.7 AST 13 L D ALT 31 Alkaline Phosphatase 52 Total Protein 4.2 L Albumin 2.1 L Globulin 2.1 L Albumin/Globulin Ratio 1.0 Alpha Fetoprotein Carcinoembryonic Ag 3.9 H CA 19-9 Antigen 22.4 Blood Type Antibody Screen Critical Care Progress Note - Nutrition Nutrition: Nutrition Category Date Time Status Liquid Diet [DIET] Diets 01/23/18 Lunch Active Attending/Attestation - Attestation I have personally seen and examined this patient.: Yes I have fully participated in the care of the patient.: Yes I have reviewed all pertinent clinical information: Yes Notes (Text): 01/23/18 16:17 I have seen and examined the patient. Medical records, lab studies, and imaging were reviewed by me and a management plan was formulated on multidisciplinary rounds with resident Dr. Garcia. I agree with their documented assessment and plan. 87yo M. 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 Dialyzing again today, as patient appears fluid overloaded on CXR. Critical Care Time 35 minutes. Multi-disciplinary rounds were performed with house staff, nursing, speech therapy, respiratory therapy, pharmacy and nutrition with integrated input from the primary team/attending and other consulting services. The documented time is cumulative and includes review of patient data/exams/labs/chart review and examination of the patient on rounds and throughout the day; time is exclusive of any procedures or teaching time.
--- NOTE | 2018-01-23 14:41 | CP.PCM.CON ---
History of Present Illness - History of Present Illness History of Present Illness: dictated Past Patient History - Infectious Disease Hx of Infectious Diseases: None - Past Medical History & Family History Past Medical History?: Yes Past Family History: Reviewed and not pertinent - Past Social History Smoking Status: Former Smoker Chewing Tobacco Use: No Cigar Use: No Alcohol: None Drugs: Denies Home Situation {Lives}: Shelter - CARDIAC Hx Cardiac Disorders: Yes Hx Atrial Fibrillation: Yes Hx Congestive Heart Failure: Yes Hx Hypertension: Yes - PULMONARY Hx Respiratory Disorders: Yes Hx Bronchitis: Yes Hx Chronic Obstructive Pulmonary Disease (COPD): Yes Hx Emphysema: Yes Hx Pneumonia: Yes - NEUROLOGICAL Hx Neurological Disorder: No - HEENT Hx HEENT Problems: Yes Hx Cataracts: Yes - RENAL Hx Chronic Kidney Disease: Yes Hx Dialysis: Yes Type of Dialysis Access: PermaCath Date of Last Dialysis Treatment: 01/20/18 Hx Kidney Stones: No - ENDOCRINE/METABOLIC Hx Endocrine Disorders: Yes Hx Hypothyroidism: Yes - HEMATOLOGICAL/ONCOLOGICAL Hx Blood Disorders: Yes Hx Anemia: Yes Hx Blood Transfusions: Yes Hx Human Immunodeficiency Virus (HIV): No Hx Sickle Cell Disease: No - INTEGUMENTARY Hx Dermatological Problems: No - MUSCULOSKELETAL/RHEUMATOLOGICAL Hx Musculoskeletal Disorders: Yes Hx Arthritis: Yes Hx Falls: No Hx Osteoporosis: Yes - GASTROINTESTINAL Hx Gastrointestinal Disorders: Yes Hx Crohn's Disease: No Hx Diverticulitis: No Hx Gall Bladder Disease: No Hx Gastritis: Yes Hx Pancreatitis: No Other/Comment: Ca of colon - GENITOURINARY/GYNECOLOGICAL Hx Genitourinary Disorders: No Hx Sexually Transmitted Disorders: No - PSYCHIATRIC Hx Anxiety: No Hx Bipolar Disorder: No Hx Depression: No Hx Post Traumatic Stress Disorder: No Hx Schizophrenia: No Hx Substance Use: No - SURGICAL HISTORY Hx Surgeries: Yes Hx Joint Replacement: Yes (left hip replacement) Hx Orthopedic Surgery: Yes (hip surgery) Other/Comment: colon resection 06/2016 - ANESTHESIA Hx Anesthesia: Yes Hx Anesthesia Reactions: No Hx Malignant Hyperthermia: No Meds Allergies/Adverse Reactions: Allergies Allergy/AdvReac Type Severity Reaction Status Date / Time No Known Allergies Allergy Verified 01/22/18 11:49 - Medications Medications: Current Medications Acetaminophen (Tylenol 325mg Tab) 650 mg PO Q4 PRN PRN Reason: Pain, Mild (1-3) Albuterol/Ipratropium (Duoneb 3 Mg/0.5 Mg (3 Ml) Ud) 3 ml INH RQ6 [facility] Last Admin: 01/23/18 14:00 Dose: 3 ml Ferrous Sulfate (Feosol) 325 mg PO BID [facility] Last Admin: 01/23/18 11:03 Dose: Not Given Folic Acid (Folic Acid) 1 mg PO DAILY [facility] Azithromycin 500 mg/ Sodium (Chloride) 250 mls @ 250 mls/hr IVPB DAILY [facility] PRN Reason: Protocol Last Admin: 01/23/18 09:15 Dose: 250 mls/hr Piperacillin Sod/Tazobactam Sod (Zosyn 2.25 Gm Iv Premix) 2.25 gm in 50 mls @ 100 mls/hr IVPB Q8H [facility] PRN Reason: Protocol Last Admin: 01/23/18 09:15 Dose: 100 mls/hr Levothyroxine Sodium (Synthroid) 100 mcg PO DAILY@0630 [facility] Last Admin: 01/23/18 06:30 Dose: Not Given Magnesium Hydroxide (Milk Of Magnesia) 30 ml PO HS PRN PRN Reason: Constipation Methylprednisolone (Solu-Medrol) 40 mg IVP Q8 [facility] Last Admin: 01/23/18 06:10 Dose: 40 mg Fluticasone/Salmeterol (Advair Diskus 250/50) 1 puff INH RQ12 [facility] Last Admin: 01/23/18 07:40 Dose: Not Given Sucralfate (Carafate Oral Susp) 1 gm PO BID [facility] Last Admin: 01/23/18 11:02 Dose: Not Given Results - Vital Signs Recent Vital Signs: Last Vital Signs Temp 98.4 F 01/23/18 12:00 Pulse 83 01/23/18 13:32 Resp 16 01/23/18 13:32 BP 90/26 L 01/23/18 13:32 Pulse Ox 100 01/23/18 13:32 - Labs Result Diagrams: 01/23/18 06:22 01/23/18 06:17 Labs: Laboratory Results - last 24 hr 01/22/18 01/22/18 01/22/18 12:12 12:48 15:45 WBC RBC Hgb Hct MCV MCH MCHC RDW Plt Count MPV Neut % (Auto) Lymph % (Auto) [place] % (Auto) Eos % (Auto) Baso % (Auto) Neut # (Auto) Lymph # (Auto) [place] # (Auto) Eos # (Auto) Baso # (Auto) Neutrophils % (Manual) Band Neutrophils % Lymphocytes % (Manual) Monocytes % (Manual) Platelet Estimate Hypochromasia (manual) Anisocytosis (manual) Smear Path Review pO2 29 L VBG pH 7.26 L VBG pCO2 63 H VBG HCO3 23.3 VBG Total CO2 30.2 H VBG O2 Sat (Calc) 57.9 VBG Base Excess -0.2 L VBG Potassium 3.3 L Sodium 139.0 Chloride 105.0 Glucose 97 Lactate 1.5 FiO2 21.0 Potassium Carbon Dioxide Anion Gap BUN Creatinine Est GFR ( Amer) Est GFR (Non-Af Amer) Random Glucose Calcium Phosphorus Magnesium Total Bilirubin AST ALT Alkaline Phosphatase Total Protein Albumin Globulin Albumin/Globulin Ratio Alpha Fetoprotein Carcinoembryonic Ag CA 19-9 Antigen Venous Blood Potassium 3.3 L Blood Type A POSITIVE Antibody Screen Negative 01/23/18 01/23/18 01/23/18 06:17 06:17 06:17 WBC RBC Hgb Hct MCV MCH MCHC RDW Plt Count MPV Neut % (Auto) Lymph % (Auto) [place] % (Auto) Eos % (Auto) Baso % (Auto) Neut # (Auto) Lymph # (Auto) [place] # (Auto) Eos # (Auto) Baso # (Auto) Neutrophils % (Manual) Band Neutrophils % Lymphocytes % (Manual) Monocytes % (Manual) Platelet Estimate Hypochromasia (manual) Anisocytosis (manual) Smear Path Review pO2 VBG pH VBG pCO2 VBG HCO3 VBG Total CO2 VBG O2 Sat (Calc) VBG Base Excess VBG Potassium Sodium 140 Chloride 103 Glucose Lactate FiO2 Potassium 3.7 Carbon Dioxide 29 Anion Gap 12 BUN 60 H Creatinine 2.0 H Est GFR ( Amer) 39 Est GFR (Non-Af Amer) 32 Random Glucose 110 Calcium 7.5 L Phosphorus 3.3 Magnesium 2.2 Total Bilirubin 0.7 AST 13 L D ALT 31 Alkaline Phosphatase 52 Total Protein 4.2 L Albumin 2.1 L Globulin 2.1 L Albumin/Globulin Ratio 1.0 Alpha Fetoprotein 1.6 Carcinoembryonic Ag 3.9 H CA 19-9 Antigen 22.4 Venous Blood Potassium Blood Type Antibody Screen 01/23/18 06:22 WBC 8.2 RBC 2.87 L Hgb 8.6 L D Hct 24.8 L MCV 86.3 D MCH 29.8 MCHC 34.5 RDW 15.6 H Plt Count 55 L MPV 10.2 Neut % (Auto) 97.9 H Lymph % (Auto) 1.2 L [place] % (Auto) 0.9 Eos % (Auto) 0.0 Baso % (Auto) 0.0 Neut # (Auto) 8.0 H Lymph # (Auto) 0.1 L [place] # (Auto) 0.1 Eos # (Auto) 0.0 Baso # (Auto) 0.0 Neutrophils % (Manual) 92 H Band Neutrophils % 5 H Lymphocytes % (Manual) 2 L Monocytes % (Manual) 1 Platelet Estimate Decreased L Hypochromasia (manual) Slight Anisocytosis (manual) Slight Smear Path Review pO2 VBG pH VBG pCO2 VBG HCO3 VBG Total CO2 VBG O2 Sat (Calc) VBG Base Excess VBG Potassium Sodium Chloride Glucose Lactate FiO2 Potassium Carbon Dioxide Anion Gap BUN Creatinine Est GFR ( Amer) Est GFR (Non-Af Amer) Random Glucose Calcium Phosphorus Magnesium Total Bilirubin AST ALT Alkaline Phosphatase Total Protein Albumin Globulin Albumin/Globulin Ratio Alpha Fetoprotein Carcinoembryonic Ag CA 19-9 Antigen Venous Blood Potassium Blood Type Antibody Screen
[2018-01-23] MEDS ORDERED: Albuterol-Ipratrop 3 mg / 0.5 (3 ml) UD INH STA (15:16)
--- NOTE | 2018-01-23 17:39 | CP.PCM.CON ---
History of Present Illness - History of Present Illness History of Present Illness: I was asked to evaluate patient by Dr Doan. Patient is a 87 year old male with COPD, CAD HTn who was brought from [facility] with dyspnea. Patient was found to have a Hgb of 4. The patient has no chest pain. Previous LV function is normal. Review of Systems - Review of Systems Systems not reviewed;Unavailable: Altered Mental Status - Cardiovascular Cardiovascular: Dyspnea Past Patient History - Infectious Disease Hx of Infectious Diseases: None - Past Medical History & Family History Past Medical History?: Yes Past Family History: Reviewed and not pertinent - Past Social History Smoking Status: Former Smoker Chewing Tobacco Use: No Cigar Use: No Alcohol: None Drugs: Denies Home Situation {Lives}: Group Home - CARDIAC Hx Cardiac Disorders: Yes Hx Atrial Fibrillation: Yes Hx Congestive Heart Failure: Yes Hx Hypertension: Yes - PULMONARY Hx Respiratory Disorders: Yes Hx Bronchitis: Yes Hx Chronic Obstructive Pulmonary Disease (COPD): Yes Hx Emphysema: Yes Hx Pneumonia: Yes - NEUROLOGICAL Hx Neurological Disorder: No - HEENT Hx HEENT Problems: Yes Hx Cataracts: Yes - RENAL Hx Chronic Kidney Disease: Yes Hx Dialysis: Yes Type of Dialysis Access: PermaCath Date of Last Dialysis Treatment: 01/20/18 Hx Kidney Stones: No - ENDOCRINE/METABOLIC Hx Endocrine Disorders: Yes Hx Hypothyroidism: Yes - HEMATOLOGICAL/ONCOLOGICAL Hx Blood Disorders: Yes Hx Anemia: Yes Hx Blood Transfusions: Yes Hx Human Immunodeficiency Virus (HIV): No Hx Sickle Cell Disease: No - INTEGUMENTARY Hx Dermatological Problems: No - MUSCULOSKELETAL/RHEUMATOLOGICAL Hx Musculoskeletal Disorders: Yes Hx Arthritis: Yes Hx Falls: No Hx Osteoporosis: Yes - GASTROINTESTINAL Hx Gastrointestinal Disorders: Yes Hx Crohn's Disease: No Hx Diverticulitis: No Hx Gall Bladder Disease: No Hx Gastritis: Yes Hx Pancreatitis: No Other/Comment: Ca of colon - GENITOURINARY/GYNECOLOGICAL Hx Genitourinary Disorders: No Hx Sexually Transmitted Disorders: No - PSYCHIATRIC Hx Anxiety: No Hx Bipolar Disorder: No Hx Depression: No Hx Post Traumatic Stress Disorder: No Hx Schizophrenia: No Hx Substance Use: No - SURGICAL HISTORY Hx Surgeries: Yes Hx Joint Replacement: Yes (left hip replacement) Hx Orthopedic Surgery: Yes (hip surgery) Other/Comment: colon resection 06/2016 - ANESTHESIA Hx Anesthesia: Yes Hx Anesthesia Reactions: No Hx Malignant Hyperthermia: No Meds Allergies/Adverse Reactions: Allergies Allergy/AdvReac Type Severity Reaction Status Date / Time No Known Allergies Allergy Verified 01/22/18 11:49 - Medications Medications: Current Medications Acetaminophen (Tylenol 325mg Tab) 650 mg PO Q4 PRN PRN Reason: Pain, Mild (1-3) Albuterol/Ipratropium (Duoneb 3 Mg/0.5 Mg (3 Ml) Ud) 3 ml INH RQ6 [facility] Last Admin: 01/23/18 14:00 Dose: 3 ml Ferrous Sulfate (Feosol) 325 mg PO BID [facility] Last Admin: 01/23/18 11:03 Dose: Not Given Folic Acid (Folic Acid) 1 mg PO DAILY [facility] Last Admin: 01/23/18 14:40 Dose: Not Given Azithromycin 500 mg/ Sodium (Chloride) 250 mls @ 250 mls/hr IVPB DAILY [facility] PRN Reason: Protocol Last Admin: 01/23/18 09:15 Dose: 250 mls/hr Piperacillin Sod/Tazobactam Sod (Zosyn 2.25 Gm Iv Premix) 2.25 gm in 50 mls @ 100 mls/hr IVPB Q8H [facility] PRN Reason: Protocol Last Admin: 01/23/18 09:15 Dose: 100 mls/hr Levothyroxine Sodium (Synthroid) 100 mcg PO DAILY@0630 [facility] Last Admin: 01/23/18 06:30 Dose: Not Given Magnesium Hydroxide (Milk Of Magnesia) 30 ml PO HS PRN PRN Reason: Constipation Methylprednisolone (Solu-Medrol) 40 mg IVP Q8 [facility] Last Admin: 01/23/18 14:40 Dose: 40 mg Fluticasone/Salmeterol (Advair Diskus 250/50) 1 puff INH RQ12 [facility] Last Admin: 01/23/18 07:40 Dose: Not Given Sucralfate (Carafate Oral Susp) 1 gm PO BID [facility] Last Admin: 01/23/18 11:02 Dose: Not Given Physical Exam - Constitutional Appears: Chronically Ill - Head Exam Head Exam: NORMAL INSPECTION - Eye Exam Eye Exam: Normal appearance - ENT Exam ENT Exam: Mucous Membranes Moist - Neck Exam Neck exam: Positive for: Full Rom - Respiratory Exam Respiratory Exam: Decreased Breath Sounds - Cardiovascular Exam Cardiovascular Exam: REGULAR RHYTHM - GI/Abdominal Exam GI & Abdominal Exam: Normal Bowel Sounds - Rectal Exam Rectal Exam: Deferred - Extremities Exam Extremities exam: Negative for: pedal edema - Back Exam Back exam: NORMAL INSPECTION Results - Vital Signs Recent Vital Signs: Last Vital Signs Temp 97.3 F L 01/23/18 16:00 Pulse 94 H 01/23/18 17:00 Resp 14 01/23/18 17:00 BP 97/39 L 01/23/18 16:23 Pulse Ox 100 01/23/18 17:00 - Labs Result Diagrams: 01/23/18 06:22 01/23/18 06:17 Labs: Laboratory Results - last 24 hr 01/22/18 01/22/18 01/23/18 12:12 12:48 06:17 WBC RBC Hgb Hct MCV MCH MCHC RDW Plt Count MPV Neut % (Auto) Lymph % (Auto) [place] % (Auto) Eos % (Auto) Baso % (Auto) Neut # (Auto) Lymph # (Auto) [place] # (Auto) Eos # (Auto) Baso # (Auto) Neutrophils % (Manual) Band Neutrophils % Lymphocytes % (Manual) Monocytes % (Manual) Platelet Estimate Hypochromasia (manual) Anisocytosis (manual) Smear Path Review Sodium Potassium Chloride Carbon Dioxide Anion Gap BUN Creatinine Est GFR ( Amer) Est GFR (Non-Af Amer) Random Glucose Calcium Phosphorus Magnesium Total Bilirubin AST ALT Alkaline Phosphatase Total Protein Albumin Globulin Albumin/Globulin Ratio Alpha Fetoprotein 1.6 Carcinoembryonic Ag CA 19-9 Antigen Blood Type A POSITIVE Antibody Screen Negative 01/23/18 01/23/18 01/23/18 06:17 06:17 06:22 WBC 8.2 RBC 2.87 L Hgb 8.6 L D Hct 24.8 L MCV 86.3 D MCH 29.8 MCHC 34.5 RDW 15.6 H Plt Count 55 L MPV 10.2 Neut % (Auto) 97.9 H Lymph % (Auto) 1.2 L [place] % (Auto) 0.9 Eos % (Auto) 0.0 Baso % (Auto) 0.0 Neut # (Auto) 8.0 H Lymph # (Auto) 0.1 L [place] # (Auto) 0.1 Eos # (Auto) 0.0 Baso # (Auto) 0.0 Neutrophils % (Manual) 92 H Band Neutrophils % 5 H Lymphocytes % (Manual) 2 L Monocytes % (Manual) 1 Platelet Estimate Decreased L Hypochromasia (manual) Slight Anisocytosis (manual) Slight Smear Path Review Sodium 140 Potassium 3.7 Chloride 103 Carbon Dioxide 29 Anion Gap 12 BUN 60 H Creatinine 2.0 H Est GFR ( Amer) 39 Est GFR (Non-Af Amer) 32 Random Glucose 110 Calcium 7.5 L Phosphorus 3.3 Magnesium 2.2 Total Bilirubin 0.7 AST 13 L D ALT 31 Alkaline Phosphatase 52 Total Protein 4.2 L Albumin 2.1 L Globulin 2.1 L Albumin/Globulin Ratio 1.0 Alpha Fetoprotein Carcinoembryonic Ag 3.9 H CA 19-9 Antigen 22.4 Blood Type Antibody Screen - EKG Data EKG Interpreted by: Myself Assessment & Plan (1) Severe anemia Assessment and Plan: follow up Hgb. this is likely the cause of his presentation. medical therapy Status: Acute (2) Afib Assessment and Plan: not a candidate for anticoagulation. medical therapy. Status: Acute
--- NOTE | 2018-01-24 00:30 | CP.PCM.CON ---
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 I am unabel to obtain a history from the patient. Review of his medical records shows a hgb of 4 and the patient is s/p 3U PRBC. He is s/p EGD with no evidence of active bleeding. Past medical, surgical, family, social history cannot be obtained from the patient. Allergies: NKA per documentation. Review of systems cannot be obtained from the patient.. Past Patient History - Infectious Disease Hx of Infectious Diseases: None - Past Medical History & Family History Past Medical History?: Yes Past Family History: Reviewed and not pertinent - Past Social History Smoking Status: Former Smoker Chewing Tobacco Use: No Cigar Use: No Alcohol: None Drugs: Denies Home Situation {Lives}: Fdc - CARDIAC Hx Cardiac Disorders: Yes Hx Atrial Fibrillation: Yes Hx Congestive Heart Failure: Yes Hx Hypertension: Yes - PULMONARY Hx Respiratory Disorders: Yes Hx Bronchitis: Yes Hx Chronic Obstructive Pulmonary Disease (COPD): Yes Hx Emphysema: Yes Hx Pneumonia: Yes - NEUROLOGICAL Hx Neurological Disorder: No - HEENT Hx HEENT Problems: Yes Hx Cataracts: Yes - RENAL Hx Chronic Kidney Disease: Yes Hx Dialysis: Yes Type of Dialysis Access: PermaCath Date of Last Dialysis Treatment: 01/20/18 Hx Kidney Stones: No - ENDOCRINE/METABOLIC Hx Endocrine Disorders: Yes Hx Hypothyroidism: Yes - HEMATOLOGICAL/ONCOLOGICAL Hx Blood Disorders: Yes Hx Anemia: Yes Hx Blood Transfusions: Yes Hx Human Immunodeficiency Virus (HIV): No Hx Sickle Cell Disease: No - INTEGUMENTARY Hx Dermatological Problems: No - MUSCULOSKELETAL/RHEUMATOLOGICAL Hx Musculoskeletal Disorders: Yes Hx Arthritis: Yes Hx Falls: No Hx Osteoporosis: Yes - GASTROINTESTINAL Hx Gastrointestinal Disorders: Yes Hx Crohn's Disease: No Hx Diverticulitis: No Hx Gall Bladder Disease: No Hx Gastritis: Yes Hx Pancreatitis: No Other/Comment: Ca of colon - GENITOURINARY/GYNECOLOGICAL Hx Genitourinary Disorders: No Hx Sexually Transmitted Disorders: No - PSYCHIATRIC Hx Anxiety: No Hx Bipolar Disorder: No Hx Depression: No Hx Post Traumatic Stress Disorder: No Hx Schizophrenia: No Hx Substance Use: No - SURGICAL HISTORY Hx Surgeries: Yes Hx Joint Replacement: Yes (left hip replacement) Hx Orthopedic Surgery: Yes (hip surgery) Other/Comment: colon resection 06/2016 - ANESTHESIA Hx Anesthesia: Yes Hx Anesthesia Reactions: No Hx Malignant Hyperthermia: No Meds Allergies/Adverse Reactions: Allergies Allergy/AdvReac Type Severity Reaction Status Date / Time No Known Allergies Allergy Verified 01/22/18 11:49 - Medications Medications: Current Medications Acetaminophen (Tylenol 325mg Tab) 650 mg PO Q4 PRN PRN Reason: Pain, Mild (1-3) Albuterol/Ipratropium (Duoneb 3 Mg/0.5 Mg (3 Ml) Ud) 3 ml INH RQ6 [facility] Last Admin: 01/23/18 14:00 Dose: 3 ml Ferrous Sulfate (Feosol) 325 mg PO BID [facility] Last Admin: 01/23/18 17:54 Dose: Not Given Folic Acid (Folic Acid) 1 mg PO DAILY [facility] Last Admin: 01/23/18 14:40 Dose: Not Given Azithromycin 500 mg/ Sodium (Chloride) 250 mls @ 250 mls/hr IVPB DAILY [facility] PRN Reason: Protocol Last Admin: 01/23/18 09:15 Dose: 250 mls/hr Piperacillin Sod/Tazobactam Sod (Zosyn 2.25 Gm Iv Premix) 2.25 gm in 50 mls @ 100 mls/hr IVPB Q8H [facility] PRN Reason: Protocol Last Admin: 01/23/18 17:53 Dose: 100 mls/hr Levothyroxine Sodium (Synthroid) 100 mcg PO DAILY@0630 [facility] Last Admin: 01/23/18 06:30 Dose: Not Given Magnesium Hydroxide (Milk Of Magnesia) 30 ml PO HS PRN PRN Reason: Constipation Methylprednisolone (Solu-Medrol) 40 mg IVP Q8 [facility] Last Admin: 01/23/18 22:50 Dose: 40 mg Fluticasone/Salmeterol (Advair Diskus 250/50) 1 puff INH RQ12 [facility] Last Admin: 01/23/18 07:40 Dose: Not Given Sucralfate (Carafate Oral Susp) 1 gm PO BID [facility] Last Admin: 01/23/18 17:54 Dose: Not Given Physical Exam - Head Exam Head Exam: ATRAUMATIC - Eye Exam Eye Exam: Normal appearance - ENT Exam ENT Exam: Mucous Membranes Dry - Respiratory Exam Respiratory Exam: NORMAL BREATHING PATTERN - Cardiovascular Exam Cardiovascular Exam: +S1, +S2 - GI/Abdominal Exam GI & Abdominal Exam: Normal Bowel Sounds Results - Vital Signs Recent Vital Signs: Last Vital Signs Temp 98.1 F 01/24/18 00:00 Pulse 91 H 01/24/18 00:04 Resp 23 01/24/18 00:04 BP 109/42 L 01/24/18 00:04 Pulse Ox 94 L 01/24/18 00:04 - Labs Result Diagrams: 01/23/18 06:22 01/23/18 06:17 Labs: Laboratory Results - last 24 hr 01/22/18 01/23/18 01/23/18 12:12 06:17 06:17 WBC RBC Hgb Hct MCV MCH MCHC RDW Plt Count MPV Neut % (Auto) Lymph % (Auto) [place] % (Auto) Eos % (Auto) Baso % (Auto) Neut # (Auto) Lymph # (Auto) [place] # (Auto) Eos # (Auto) Baso # (Auto) Neutrophils % (Manual) Band Neutrophils % Lymphocytes % (Manual) Monocytes % (Manual) Platelet Estimate Hypochromasia (manual) Anisocytosis (manual) Smear Path Review Sodium Potassium Chloride Carbon Dioxide Anion Gap BUN Creatinine Est GFR ( Amer) Est GFR (Non-Af Amer) Random Glucose Calcium Phosphorus Magnesium Total Bilirubin AST ALT Alkaline Phosphatase Total Protein Albumin Globulin Albumin/Globulin Ratio Alpha Fetoprotein 1.6 Carcinoembryonic Ag 3.9 H CA 19-9 Antigen 22.4 01/23/18 01/23/18 06:17 06:22 WBC 8.2 RBC 2.87 L Hgb 8.6 L D Hct 24.8 L MCV 86.3 D MCH 29.8 MCHC 34.5 RDW 15.6 H Plt Count 55 L MPV 10.2 Neut % (Auto) 97.9 H Lymph % (Auto) 1.2 L [place] % (Auto) 0.9 Eos % (Auto) 0.0 Baso % (Auto) 0.0 Neut # (Auto) 8.0 H Lymph # (Auto) 0.1 L [place] # (Auto) 0.1 Eos # (Auto) 0.0 Baso # (Auto) 0.0 Neutrophils % (Manual) 92 H Band Neutrophils % 5 H Lymphocytes % (Manual) 2 L Monocytes % (Manual) 1 Platelet Estimate Decreased L Hypochromasia (manual) Slight Anisocytosis (manual) Slight Smear Path Review Sodium 140 Potassium 3.7 Chloride 103 Carbon Dioxide 29 Anion Gap 12 BUN 60 H Creatinine 2.0 H Est GFR ( Amer) 39 Est GFR (Non-Af Amer) 32 Random Glucose 110 Calcium 7.5 L Phosphorus 3.3 Magnesium 2.2 Total Bilirubin 0.7 AST 13 L D ALT 31 Alkaline Phosphatase 52 Total Protein 4.2 L Albumin 2.1 L Globulin 2.1 L Albumin/Globulin Ratio 1.0 Alpha Fetoprotein Carcinoembryonic Ag CA 19-9 Antigen Assessment & Plan (1) Anemia Assessment and Plan: will check retic count, b12, folate, ferritin to further characterize EGD negative for active bleeding transfusion support PRN Status: Acute (2) Thrombocytopenia Assessment and Plan: likely sepsis related rule out DIC; will add coags and fibrinogen Status: Acute (3) Neuroendocrine cancer Assessment and Plan: on appendix s/p surgery lung lesions ? metastasis will add chromogranin A level Thank you for this interesting consult. Status: Acute
[2018-01-24] MEDS: Piperacill/Tazo 2.25gm in Dex 2.25 GM/50 ML BAG IVPB SCH ×3 (02:15→18:00)
[2018-01-24] MEDS: Albuterol-Ipratrop 3 mg / 0.5 (3 ml) UD INH SCH ×3 (02:22→19:53)
--- NOTE | 2018-01-24 03:41 | CON ---
DATE: 01/23/2018 INFECTIOUS DISEASE CONSULTATION REQUESTED BY: Alexandria Doan MD HISTORY OF PRESENT ILLNESS: This patient is an 87-year-old male. He has history of end-stage renal disease, hypertension, and atrial fibrillation. He gets the dialysis on Saturday, Saturday, and Saturday and has hypertension, atrial fibrillation, CHF, COPD, bronchitis, gastritis, hypothyroidism, osteoporosis, anemia, history of pneumonia. He had a left hip surgery in the past. 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 X-ray, he has lung nodules, which is showing lung mets. It was [facility] which was showing organizing pneumonia. The patient comes in here with a hemoglobin of 4, requiring GI to look into it. He was hypotensive. ICU was involved. He is intubated at this time, remained with hypotension. I am asked for the IV antibiotics. He is a dialysis patient. PAST MEDICAL HISTORY: Significant for pneumonia. SOCIAL HISTORY: Former smoker. REVIEW OF SYSTEM: CARDIOVASCULAR: Cardiac cardenas, he has atrial fibrillation, CHF, and hypertension. PULMONARY: He has bronchitis, emphysema, pneumonia, COPD, and metastatic disease. NEUROLOGIC: No problems reported. HEENT: He has cataracts. RENAL: He has no kidney stones or any kidney issues, but he is on dialysis. He has a kidney failure. ENDOCRINE: He has hypothyroidism. HEMATOLOGIC: He has anemia. No HIV disease. No sickle cell disease. INTEGUMENTARY/DERMATOLOGICAL: No problems. MUSCULOSKELETAL: He has arthritis, osteoporosis. No rheumatoid arthritis. GASTROINTESTINAL: He has no Crohn's. No diverticulitis. No gallbladder disease. He does have gastritis. He does not have any pancreatitis. GENITOURINARY: He has sexually transmitted diseases. PSYCHIATRIC: No psych issues of depression, anxiety, posttraumatic stress syndrome, schizophrenia, or substance use. MISCELLANEOUS: History of anesthesia, yes, history of anesthesia. Reactions, no. History of malignant hyperthermia, no. SURGICAL HISTORY: Significant for joint replacement, left hip surgery. He also had colon resection in 06/2016 when he was found to have a neuroendocrine tumor of the appendix. ALLERGIES: HE IS NOT ALLERGIC TO ANY MEDICINE. PHYSICAL EXAMINATION: VITAL SIGNS: I find his temperature is 97.3, pulse is 98, blood pressure is on the low side 97/39. GENERAL: He has received three units. Endoscopy was negative for any bleed and showed medium-sized hiatal hernia, erythematous antrum. He has received three units. He has altered mental status. HEENT: Head is atraumatic, normocephalic. Pupils are reacting to light. NECK: Supple. SKIN: Extremities have all black and blue allover his upper extremities. LUNGS: Clear. No crackles or rales present. Occasional wheeze. HEART: S1, S2 are regular. No murmurs appreciated. ABDOMEN: Soft, nontender. No guarding, no rigidity present. EXTREMITIES: Have no edema, clubbing or cyanosis. He does have foot protectors present, and skin is warm to touch. PSYCHIATRIC: Unclear as he appears drowsy to me at this time, and he is on Zosyn and Zithromax at this time. LABORATORY DATA: Labs are noted. Labs show white count is 8.2, his hemoglobin is 8.6 now, hematocrit 24.8, platelet count is low at 55. Neutrophils are 92, bands are 5, lymphs are 2. An ABG was done yesterday which showed lactate level was 1.5. Anion gap is 12, BUN is 60, creatinine is 2. He came with a creatinine of 3.4 which has decreased. His proBNP was 37,200. Blood culture is negative one set. Other set is still pending. He had a chest x-ray, and the chest x-ray shows hypoinflation right IJ approach, extended to expected location of the cavoatrial junction, [id number] pulmonary vascular congestion, small bilateral effusion, biapical pleural thickening, cardiomegaly. ASSESSMENT AND PLAN: At this time, I have empirically covered him for pneumonia. He is on Zosyn and Zithromax. We will continue present treatment with respiratory treatments also and we will follow. He has end-stage renal disease with severe anemia. He is getting gastroenterology workup done at this time to find out the cause of anemia. Carmen Alejandro MD
[2018-01-24] MEDS: MethylPREDNISolone 40 mg Vial IVP SCH ×3 (06:10→21:40)
[2018-01-24 06:21] LABS: EOS % 0.2 % (0.0-4.0); HEMOGLOBIN 8.1 g/dL (12.0-18.0); LYMPH # 0.1 K/uL (1.0-4.3); LYMPH % 1.8 % (20.0-40.0); MEAN CELL VOLUME 86.2 fL (80.0-94.0); MEAN CORPUSCULAR HGB CONC 34.8 g/dL (33.0-37.0); MEAN PLATELET VOLUME 10.2 fL (7.2-11.7); MONO # 0.1 K/uL (0.0-0.8); MONO % 1.3 % (0.0-10.0); NEUT # 6.9 K/uL (1.8-7.0); NEUT % 96.7 % (50.0-75.0); PLATELET COUNT 72 K/uL (130-400); RBC 2.71 Mil/uL (4.40-5.90); RED CELL DISTRIBUTION WIDTH 16.1 % (11.5-14.5); WHITE BLOOD COUNT 7.2 K/uL (4.8-10.8)
[2018-01-24] MEDS: Levothyroxine 100 MCG TAB PO SCH (06:30)
[2018-01-24 06:34] LABS: INR 1.2; PROTHROMBIN TIME 12.7 SECONDS (9.7-12.2)
[2018-01-24 07:09] LABS: ALB/GLOB RATIO 1.2 (1.0-2.1); ALBUMIN 2.4 g/dL (3.5-5.0); ALT/SGPT 35 U/L (21-72); AST/SGOT 7 U/L (17-59); BLOOD UREA NITROGEN 39 mg/dL (9-20); CALCIUM 7.8 mg/dl (8.6-10.4); GFR NON-AFRICAN AMERICAN 34
[2018-01-24 07:40] LABS: FOLATE > 20.0 ng/mL
[2018-01-24] MEDS: Fluticasone-Salmeterol 250-50mcg Diskus INH SCH ×2 (07:54→19:54)
[2018-01-24 08:30] LABS: BANDS 1 % (0-2); LYMPHOCYTE 1 % (20-40); MONOCYTE 1 % (0-10); NEUTROPHIL 97 % (50-75); TOTAL CELLS COUNTED 100
[2018-01-24 08:31] LABS: ANISOCYTOSIS SLIGHT; HYPOCHROMIC SLIGHT; MICROCYTOSIS SLIGHT; PLATELET ESTIMATE DECREASED (NORMAL); POIKILOCYTOSIS SLIGHT; TARGET CELLS SLIGHT; TEARDROP CELLS SLIGHT
[2018-01-24 08:32] LABS: OVALOCYTES SLIGHT
--- NOTE | 2018-01-24 09:38 | CP.CCUPN ---
<Thomas Garcia - Last Filed: 01/24/18 12:24> CCU Subjective - Physician Review Subjective (Free Text): Critical care progress note: Pt seen and examined at bedside. No acute events overnight. Endoscopy yesterday showed medium size hiatal hernia, erythematous antrum and duodenum. No active bleeding. No complaints. 12 Point ROS limited as patient is not AAO x 3 CCU Objective - Vital Signs / Intake & Output Vital Signs (Last 4 hours): Vital Signs Pulse Resp BP Pulse Ox 01/24/18 07:46 96 H 01/24/18 07:01 75 17 106/42 L 100 01/24/18 06:00 90 16 113/46 L 100 01/24/18 05:55 90 Intake and Output (Last 8hrs): Intake & Output 01/23/18 01/24/18 01/24/18 22:59 06:59 14:59 Intake Total 150 200 0 Output Total 0 950 Balance 150 -750 0 Weight 113 lb 1.554 oz Intake: Intake, IV Amount 50 50 0 Left AC 50 Left Antecubital 0 50 0 Oral 100 150 Output: Urine 0 Urine, Voided 0 Other 950 Other: # Bowel Movements 1 1 - Physical Exam Head: Positive for: Atraumatic, Normocephalic Pupils: Positive for: PERRL Extroacular Muscles: Positive for: EOMI Mouth: Positive for: Moist Mucous Membranes Neck: Positive for: Normal Range of Motion. Negative for: JVD Respiratory/Chest: Positive for: Clear to Auscultation. Negative for: Wheezes, Rales Cardiovascular: Positive for: Regular Rate and Rhythm, Normal S1, S2 Abdomen: Positive for: Normal Bowel Sounds. Negative for: Tenderness, Distention Upper Extremity: Negative for: Cyanosis, Edema Lower Extremity: Negative for: Edema, CALF TENDERNESS Neurological: Positive for: CN II-XII Intact Skin: Positive for: Warm, Dry Psychiatric: Positive for: Oriented x 3 - Medications Active Medications: Active Medications Generic Name Dose Route Start Last Admin Trade Name Freq PRN Reason Stop Dose Admin Acetaminophen 650 mg 01/22/18 20:09 Tylenol 325mg Tab PO Q4 PRN Pain, Mild (1-3) Albuterol/Ipratropium 3 ml 01/23/18 00:00 01/24/18 07:54 Duoneb 3 Mg/0.5 Mg (3 Ml) Ud INH 3 ml RQ6 ANDREA Administration Ferrous Sulfate 325 mg 01/23/18 10:00 01/23/18 17:54 Feosol PO Not Given BID ANDREA Folic Acid 1 mg 01/23/18 10:00 01/23/18 14:40 Folic Acid PO Not Given DAILY ANDREA Azithromycin 500 mg/ Sodium 250 mls @ 250 mls/hr 01/23/18 10:00 01/23/18 09: 15 Chloride IVPB 250 mls/hr DAILY ANDREA Administration Protocol Piperacillin Sod/Tazobactam Sod 2.25 gm in 50 mls @ 100 mls/hr 01/23/18 02:00 01/24/18 02:15 Zosyn 2.25 Gm Iv Premix IVPB 100 mls/hr Q8H ANDREA Administration Protocol Levothyroxine Sodium 100 mcg 01/23/18 06:30 01/24/18 06:30 Synthroid PO Not Given DAILY@0630 ANDREA Magnesium Hydroxide 30 ml 01/22/18 20:09 Milk Of Magnesia PO HS PRN Constipation Methylprednisolone 40 mg 01/22/18 22:00 01/24/18 06:10 Solu-Medrol IVP 40 mg Q8 ANDREA Administration Fluticasone/Salmeterol 1 puff 01/23/18 08:00 01/24/18 07:54 Advair Diskus 250/50 INH Not Given RQ12 [facility] Sucralfate 1 gm 01/23/18 10:00 01/23/18 17:54 Carafate Oral Susp PO Not Given BID ANDREA - Patient Studies Lab Studies: Microbiology Studies 01/22/18 21:42 MRSA Culture (Admit) - Final Naris MRSA NOT DETECTED 01/22/18 12:44 Blood Culture - Preliminary Blood NO GROWTH AFTER 24 HOURS 01/22/18 12:44 Gram Stain - Final Blood Lab Studies 01/24/18 01/24/18 01/24/18 Range/Units 08:24 06:12 06:12 WBC (4.8-10.8) K/uL RBC (4.40-5.90) Mil/uL Hgb (12.0-18.0) g/dL Hct (35.0-51.0) % MCV (80.0-94.0) fL MCH (27.0-31.0) pg MCHC (33.0-37.0) g/dL RDW (11.5-14.5) % Plt Count (130-400) K/uL MPV (7.2-11.7) fL Neut % (Auto) (50.0-75.0) % Lymph % (Auto) (20.0-40.0) % Winston % (Auto) (0.0-10.0) % Eos % (Auto) (0.0-4.0) % Baso % (Auto) (0.0-2.0) % Neut # (Auto) (1.8-7.0) K/uL Lymph # (Auto) (1.0-4.3) K/uL Winston # (Auto) (0.0-0.8) K/uL Eos # (Auto) (0.0-0.7) K/uL Baso # (Auto) (0.0-0.2) K/uL Neutrophils % (Manual) (50-75) % Band Neutrophils % (0-2) % Lymphocytes % (Manual) (20-40) % Monocytes % (Manual) (0-10) % Platelet Estimate (NORMAL) Hypochromasia (manual) Poikilocytosis (manual Anisocytosis (manual) Microcytosis (manual) Macrocytosis (manual) Target Cells Tear Drop Cells Ovalocytes Smear Path Review Retic Count 1.2 D (0.5-1.5) % PT 12.7 H (9.7-12.2) SECONDS INR 1.2 APTT 28 (21-34) SECONDS Fibrinogen 377 (200-400) mg/dL Sodium (132-148) mmol/L Potassium (3.6-5.2) mmol/L Chloride (98-107) mmol/L Carbon Dioxide (22-30) mmol/L Anion Gap (10-20) BUN (9-20) mg/dL Creatinine (0.8-1.5) mg/dL Est GFR ( Amer) Est GFR (Non-Af Amer) Random Glucose (75-110) mg/dL Calcium (8.6-10.4) mg/dl Phosphorus (2.5-4.5) mg/dL Magnesium (1.6-2.3) mg/dL Ferritin ng/mL Total Bilirubin (0.2-1.3) mg/dL AST (17-59) U/L ALT (21-72) U/L Alkaline Phosphatase (38-126) U/L Total Protein (6.3-8.3) g/dL Albumin (3.5-5.0) g/dL Globulin (2.2-3.9) gm/dL Albumin/Globulin Ratio (1.0-2.1) Vitamin B12 (239-931) pg/mL Folate ng/mL Stool Occult Blood Positive H (NEGATIVE) 01/24/18 01/24/18 01/22/18 Range/Units 06:12 06:12 12:12 WBC 7.2 (4.8-10.8) K/uL RBC 2.71 L (4.40-5.90) Mil/uL Hgb 8.1 L (12.0-18.0) g/dL Hct 23.3 L (35.0-51.0) % MCV 86.2 (80.0-94.0) fL MCH 30.0 (27.0-31.0) pg MCHC 34.8 (33.0-37.0) g/dL RDW 16.1 H (11.5-14.5) % Plt Count 72 L (130-400) K/uL MPV 10.2 (7.2-11.7) fL Neut % (Auto) 96.7 H (50.0-75.0) % Lymph % (Auto) 1.8 L (20.0-40.0) % Winston % (Auto) 1.3 (0.0-10.0) % Eos % (Auto) 0.2 (0.0-4.0) % Baso % (Auto) 0.0 (0.0-2.0) % Neut # (Auto) 6.9 (1.8-7.0) K/uL Lymph # (Auto) 0.1 L (1.0-4.3) K/uL Winston # (Auto) 0.1 (0.0-0.8) K/uL Eos # (Auto) 0.0 (0.0-0.7) K/uL Baso # (Auto) 0.0 (0.0-0.2) K/uL Neutrophils % (Manual) 97 H (50-75) % Band Neutrophils % 1 (0-2) % Lymphocytes % (Manual) 1 L (20-40) % Monocytes % (Manual) 1 (0-10) % Platelet Estimate Decreased L (NORMAL) Hypochromasia (manual) Slight Poikilocytosis (manual Slight Anisocytosis (manual) Slight Microcytosis (manual) Slight Macrocytosis (manual) Slight Target Cells Slight Tear Drop Cells Slight Ovalocytes Slight Smear Path Review Retic Count (0.5-1.5) % PT (9.7-12.2) SECONDS INR APTT (21-34) SECONDS Fibrinogen (200-400) mg/dL Sodium 140 (132-148) mmol/L Potassium 3.3 L (3.6-5.2) mmol/L Chloride 101 (98-107) mmol/L Carbon Dioxide 30 (22-30) mmol/L Anion Gap 12 (10-20) BUN 39 H (9-20) mg/dL Creatinine 1.9 H (0.8-1.5) mg/dL Est GFR ( Amer) 41 Est GFR (Non-Af Amer) 34 Random Glucose 139 H (75-110) mg/dL Calcium 7.8 L (8.6-10.4) mg/dl Phosphorus 3.0 (2.5-4.5) mg/dL Magnesium 2.1 (1.6-2.3) mg/dL Ferritin 909.0 ng/mL Total Bilirubin 0.4 (0.2-1.3) mg/dL AST 7 L D (17-59) U/L ALT 35 (21-72) U/L Alkaline Phosphatase 60 (38-126) U/L Total Protein 4.4 L (6.3-8.3) g/dL Albumin 2.4 L (3.5-5.0) g/dL Globulin 2.0 L (2.2-3.9) gm/dL Albumin/Globulin Ratio 1.2 (1.0-2.1) Vitamin B12 504 (239-931) pg/mL Folate > 20.0 ng/mL Stool Occult Blood (NEGATIVE) Laboratory Results - last 24 hr 01/22/18 01/24/18 01/24/18 12:12 06:12 06:12 WBC 7.2 RBC 2.71 L Hgb 8.1 L Hct 23.3 L MCV 86.2 MCH 30.0 MCHC 34.8 RDW 16.1 H Plt Count 72 L MPV 10.2 Neut % (Auto) 96.7 H Lymph % (Auto) 1.8 L Winston % (Auto) 1.3 Eos % (Auto) 0.2 Baso % (Auto) 0.0 Neut # (Auto) 6.9 Lymph # (Auto) 0.1 L Winston # (Auto) 0.1 Eos # (Auto) 0.0 Baso # (Auto) 0.0 Neutrophils % (Manual) 97 H Band Neutrophils % 1 Lymphocytes % (Manual) 1 L Monocytes % (Manual) 1 Platelet Estimate Decreased L Hypochromasia (manual) Slight Poikilocytosis (manual Slight Anisocytosis (manual) Slight Microcytosis (manual) Slight Macrocytosis (manual) Slight Target Cells Slight Tear Drop Cells Slight Ovalocytes Slight Smear Path Review Retic Count PT INR APTT Fibrinogen Sodium 140 Potassium 3.3 L Chloride 101 Carbon Dioxide 30 Anion Gap 12 BUN 39 H Creatinine 1.9 H Est GFR ( Amer) 41 Est GFR (Non-Af Amer) 34 Random Glucose 139 H Calcium 7.8 L Phosphorus 3.0 Magnesium 2.1 Ferritin 909.0 Total Bilirubin 0.4 AST 7 L D ALT 35 Alkaline Phosphatase 60 Total Protein 4.4 L Albumin 2.4 L Globulin 2.0 L Albumin/Globulin Ratio 1.2 Vitamin B12 504 Folate > 20.0 Stool Occult Blood 01/24/18 01/24/18 01/24/18 06:12 06:12 08:24 WBC RBC Hgb Hct MCV MCH MCHC RDW Plt Count MPV Neut % (Auto) Lymph % (Auto) Winston % (Auto) Eos % (Auto) Baso % (Auto) Neut # (Auto) Lymph # (Auto) Winston # (Auto) Eos # (Auto) Baso # (Auto) Neutrophils % (Manual) Band Neutrophils % Lymphocytes % (Manual) Monocytes % (Manual) Platelet Estimate Hypochromasia (manual) Poikilocytosis (manual Anisocytosis (manual) Microcytosis (manual) Macrocytosis (manual) Target Cells Tear Drop Cells Ovalocytes Smear Path Review Retic Count 1.2 D PT 12.7 H INR 1.2 APTT 28 Fibrinogen 377 Sodium Potassium Chloride Carbon Dioxide Anion Gap BUN Creatinine Est GFR ( Amer) Est GFR (Non-Af Amer) Random Glucose Calcium Phosphorus Magnesium Ferritin Total Bilirubin AST ALT Alkaline Phosphatase Total Protein Albumin Globulin Albumin/Globulin Ratio Vitamin B12 Folate Stool Occult Blood Positive H Review of Systems - Review of Systems Systems not reviewed;Unavailable: Dementia All systems: reviewed and no additional remarkable complaints except Critical Care Progress Note - Nutrition Nutrition: Nutrition Category Date Time Status Liquid Diet [DIET] Diets 01/23/18 Lunch Active Assessment/Plan - Assessment and Plan (Free Text) Assessment: 87 year old male with PMHx of ESRD (Saturday/Saturday), HTN, Atrial Fibrillation on Eliquis, CHF, COPD/Bronchitis, Gastritis, Hypothyroidism, Osteoporosis, Anemia, Pneumonia Arthritis, neuroendocrine tumor of the appendix s/p resection in 06/2016 and lung nodules s/p biopsy showing organizing pneumonia but suspicious for lung metastasis sent in from correction after being found lethargic. Patient found to have Hb of 4 and hypotensive 78/30. s/p 3 units PRBC and EGD showing medium size hiatal hernia, erythematous antrum and duodenum with no active bleeding. Neuro: - Altered - Head Ct showed no evidence of acute intracranial hemorrhage - F/u palliative consult Pulm: - maintain SPO2 > 90% - NC as needed - CXR showed pulm effusion and associated consolidation, R> L - Duonebs as needed - Cont Zithromax - Cont duonebs and Adavair - Cont solumedrol 40mg Q 8 CV: - Hemodynamically stable - Maintain MAP> 65 - Cardiology consult - patient is not a candidate for cardiac cath at this time GI: - Liquid diet - Hb of 4 , s/p 3 units PRBC Hb currently 8.1 - Cont carafate - GI consulted for recs - Elevated BUN 60 - Cont to monitor H/H - Hold all anticoagulation Heme: - Hb of 4 - S/p transfuse 3 units of PRBC - Monitor H/H - Cont Feosol - Dr Chu: sepsis r/o DIC, f/u chromogranin, thrombocytopenia 2/2 sepsis Endo: - maintain euglycemia - Cont levothyroxine daily Renal: - Plan for dialysis again today - f/u repeat CXR - Patient receives dialysis sat/sat, received dialysis yesterday - Nephrology consulted for recs - Cr of 3.4 --> 2--> 1.9 today - Monitor I and O - Replete electrolytes as needed ID: - Afebrile - Wbc of 8.2 - Gram neg iabn in blood cx, pending official report - Cont Zosyn and azithro - ID consulted for recs - Cont zithromax and zosyn - F/u septic work up GI/DVT ppx Case and plan was reviewed and discussed in detail with Dr King. <Yinka King - Last Filed: 01/24/18 17:34> CCU Objective - Vital Signs / Intake & Output Intake and Output (Last 8hrs): Intake & Output 01/24/18 01/24/18 01/24/18 06:59 14:59 22:59 Intake Total 200 580 Output Total 950 Balance -750 580 Weight 113 lb 1.554 oz Intake: Intake, IV Amount 50 0 Left Antecubital 50 0 Oral 150 280 Other 300 Output: Other 950 Other: # Bowel Movements 1 1 - Medications Active Medications: Active Medications Generic Name Dose Route Start Last Admin Trade Name Freq PRN Reason Stop Dose Admin Acetaminophen 650 mg 01/22/18 20:09 Tylenol 325mg Tab PO Q4 PRN Pain, Mild (1-3) Albuterol/Ipratropium 3 ml 01/23/18 00:00 01/24/18 07:54 Duoneb 3 Mg/0.5 Mg (3 Ml) Ud INH 3 ml RQ6 ANDREA Administration Ferrous Sulfate 325 mg 01/23/18 10:00 01/24/18 10:25 Feosol PO 325 mg BID ANDREA Administration Folic Acid 1 mg 01/23/18 10:00 01/24/18 10:25 Folic Acid PO 1 mg DAILY ANDREA Administration Azithromycin 500 mg/ Sodium 250 mls @ 250 mls/hr 01/23/18 10:00 01/24/18 10: 18 Chloride IVPB 250 mls/hr DAILY ANDREA Administration Protocol Piperacillin Sod/Tazobactam Sod 2.25 gm in 50 mls @ 100 mls/hr 01/23/18 02:00 01/24/18 10:20 Zosyn 2.25 Gm Iv Premix IVPB 100 mls/hr Q8H ANDREA Administration Protocol Levothyroxine Sodium 100 mcg 01/23/18 06:30 01/24/18 06:30 Synthroid PO Not Given DAILY@0630 ANDREA Magnesium Hydroxide 30 ml 01/22/18 20:09 Milk Of Magnesia PO HS PRN Constipation Methylprednisolone 40 mg 01/22/18 22:00 01/24/18 06:10 Solu-Medrol IVP 40 mg Q8 ANDREA Administration Fluticasone/Salmeterol 1 puff 01/23/18 08:00 01/24/18 07:54 Advair Diskus 250/50 INH Not Given RQ12 ANDREA Sucralfate 1 gm 01/23/18 10:00 01/24/18 10:25 Carafate Oral Susp PO 1 gm BID ANDREA Administration - Patient Studies Lab Studies: Microbiology Studies 01/22/18 12:44 Blood Culture - Preliminary Blood Gram Negative Iban Gram Stain - Final 01/22/18 12:44 Blood Culture - Preliminary Blood Gram Negative Iban Gram Stain - Final 01/22/18 21:42 MRSA Culture (Admit) - Final Naris MRSA NOT DETECTED Lab Studies 01/24/18 01/24/18 01/24/18 Range/Units 08:24 06:12 06:12 WBC (4.8-10.8) K/uL RBC (4.40-5.90) Mil/uL Hgb (12.0-18.0) g/dL Hct (35.0-51.0) % MCV (80.0-94.0) fL MCH (27.0-31.0) pg MCHC (33.0-37.0) g/dL RDW (11.5-14.5) % Plt Count (130-400) K/uL MPV (7.2-11.7) fL Neut % (Auto) (50.0-75.0) % Lymph % (Auto) (20.0-40.0) % Winston % (Auto) (0.0-10.0) % Eos % (Auto) (0.0-4.0) % Baso % (Auto) (0.0-2.0) % Neut # (Auto) (1.8-7.0) K/uL Lymph # (Auto) (1.0-4.3) K/uL Winston # (Auto) (0.0-0.8) K/uL Eos # (Auto) (0.0-0.7) K/uL Baso # (Auto) (0.0-0.2) K/uL Neutrophils % (Manual) (50-75) % Band Neutrophils % (0-2) % Lymphocytes % (Manual) (20-40) % Monocytes % (Manual) (0-10) % Platelet Estimate (NORMAL) Hypochromasia (manual) Poikilocytosis (manual Anisocytosis (manual) Microcytosis (manual) Macrocytosis (manual) Target Cells Tear Drop Cells Ovalocytes Retic Count 1.2 D (0.5-1.5) % PT 12.7 H (9.7-12.2) SECONDS INR 1.2 APTT 28 (21-34) SECONDS Fibrinogen 377 (200-400) mg/dL Sodium (132-148) mmol/L Potassium (3.6-5.2) mmol/L Chloride (98-107) mmol/L Carbon Dioxide (22-30) mmol/L Anion Gap (10-20) BUN (9-20) mg/dL Creatinine (0.8-1.5) mg/dL Est GFR ( Amer) Est GFR (Non-Af Amer) Random Glucose (75-110) mg/dL Calcium (8.6-10.4) mg/dl Phosphorus (2.5-4.5) mg/dL Magnesium (1.6-2.3) mg/dL Ferritin ng/mL Total Bilirubin (0.2-1.3) mg/dL AST (17-59) U/L ALT (21-72) U/L Alkaline Phosphatase (38-126) U/L Total Protein (6.3-8.3) g/dL Albumin (3.5-5.0) g/dL Globulin (2.2-3.9) gm/dL Albumin/Globulin Ratio (1.0-2.1) Vitamin B12 (239-931) pg/mL Folate ng/mL Stool Occult Blood Positive H (NEGATIVE) 01/24/18 01/24/18 Range/Units 06:12 06:12 WBC 7.2 (4.8-10.8) K/uL RBC 2.71 L (4.40-5.90) Mil/uL Hgb 8.1 L (12.0-18.0) g/dL Hct 23.3 L (35.0-51.0) % MCV 86.2 (80.0-94.0) fL MCH 30.0 (27.0-31.0) pg MCHC 34.8 (33.0-37.0) g/dL RDW 16.1 H (11.5-14.5) % Plt Count 72 L (130-400) K/uL MPV 10.2 (7.2-11.7) fL Neut % (Auto) 96.7 H (50.0-75.0) % Lymph % (Auto) 1.8 L (20.0-40.0) % Winston % (Auto) 1.3 (0.0-10.0) % Eos % (Auto) 0.2 (0.0-4.0) % Baso % (Auto) 0.0 (0.0-2.0) % Neut # (Auto) 6.9 (1.8-7.0) K/uL Lymph # (Auto) 0.1 L (1.0-4.3) K/uL Winston # (Auto) 0.1 (0.0-0.8) K/uL Eos # (Auto) 0.0 (0.0-0.7) K/uL Baso # (Auto) 0.0 (0.0-0.2) K/uL Neutrophils % (Manual) 97 H (50-75) % Band Neutrophils % 1 (0-2) % Lymphocytes % (Manual) 1 L (20-40) % Monocytes % (Manual) 1 (0-10) % Platelet Estimate Decreased L (NORMAL) Hypochromasia (manual) Slight Poikilocytosis (manual Slight Anisocytosis (manual) Slight Microcytosis (manual) Slight Macrocytosis (manual) Slight Target Cells Slight Tear Drop Cells Slight Ovalocytes Slight Retic Count (0.5-1.5) % PT (9.7-12.2) SECONDS INR APTT (21-34) SECONDS Fibrinogen (200-400) mg/dL Sodium 140 (132-148) mmol/L Potassium 3.3 L (3.6-5.2) mmol/L Chloride 101 (98-107) mmol/L Carbon Dioxide 30 (22-30) mmol/L Anion Gap 12 (10-20) BUN 39 H (9-20) mg/dL Creatinine 1.9 H (0.8-1.5) mg/dL Est GFR ( Amer) 41 Est GFR (Non-Af Amer) 34 Random Glucose 139 H (75-110) mg/dL Calcium 7.8 L (8.6-10.4) mg/dl Phosphorus 3.0 (2.5-4.5) mg/dL Magnesium 2.1 (1.6-2.3) mg/dL Ferritin 909.0 ng/mL Total Bilirubin 0.4 (0.2-1.3) mg/dL AST 7 L D (17-59) U/L ALT 35 (21-72) U/L Alkaline Phosphatase 60 (38-126) U/L Total Protein 4.4 L (6.3-8.3) g/dL Albumin 2.4 L (3.5-5.0) g/dL Globulin 2.0 L (2.2-3.9) gm/dL Albumin/Globulin Ratio 1.2 (1.0-2.1) Vitamin B12 504 (239-931) pg/mL Folate > 20.0 ng/mL Stool Occult Blood (NEGATIVE) Laboratory Results - last 24 hr 01/24/18 01/24/18 01/24/18 06:12 06:12 06:12 WBC 7.2 RBC 2.71 L Hgb 8.1 L Hct 23.3 L MCV 86.2 MCH 30.0 MCHC 34.8 RDW 16.1 H Plt Count 72 L MPV 10.2 Neut % (Auto) 96.7 H Lymph % (Auto) 1.8 L Winston % (Auto) 1.3 Eos % (Auto) 0.2 Baso % (Auto) 0.0 Neut # (Auto) 6.9 Lymph # (Auto) 0.1 L Winston # (Auto) 0.1 Eos # (Auto) 0.0 Baso # (Auto) 0.0 Neutrophils % (Manual) 97 H Band Neutrophils % 1 Lymphocytes % (Manual) 1 L Monocytes % (Manual) 1 Platelet Estimate Decreased L Hypochromasia (manual) Slight Poikilocytosis (manual Slight Anisocytosis (manual) Slight Microcytosis (manual) Slight Macrocytosis (manual) Slight Target Cells Slight Tear Drop Cells Slight Ovalocytes Slight Retic Count 1.2 D PT INR APTT Fibrinogen Sodium 140 Potassium 3.3 L Chloride 101 Carbon Dioxide 30 Anion Gap 12 BUN 39 H Creatinine 1.9 H Est GFR ( Amer) 41 Est GFR (Non-Af Amer) 34 Random Glucose 139 H Calcium 7.8 L Phosphorus 3.0 Magnesium 2.1 Ferritin 909.0 Total Bilirubin 0.4 AST 7 L D ALT 35 Alkaline Phosphatase 60 Total Protein 4.4 L Albumin 2.4 L Globulin 2.0 L Albumin/Globulin Ratio 1.2 Vitamin B12 504 Folate > 20.0 Stool Occult Blood 01/24/18 01/24/18 06:12 08:24 WBC RBC Hgb Hct MCV MCH MCHC RDW Plt Count MPV Neut % (Auto) Lymph % (Auto) Winston % (Auto) Eos % (Auto) Baso % (Auto) Neut # (Auto) Lymph # (Auto) Winston # (Auto) Eos # (Auto) Baso # (Auto) Neutrophils % (Manual) Band Neutrophils % Lymphocytes % (Manual) Monocytes % (Manual) Platelet Estimate Hypochromasia (manual) Poikilocytosis (manual Anisocytosis (manual) Microcytosis (manual) Macrocytosis (manual) Target Cells Tear Drop Cells Ovalocytes Retic Count PT 12.7 H INR 1.2 APTT 28 Fibrinogen 377 Sodium Potassium Chloride Carbon Dioxide Anion Gap BUN Creatinine Est GFR ( Amer) Est GFR (Non-Af Amer) Random Glucose Calcium Phosphorus Magnesium Ferritin Total Bilirubin AST ALT Alkaline Phosphatase Total Protein Albumin Globulin Albumin/Globulin Ratio Vitamin B12 Folate Stool Occult Blood Positive H Critical Care Progress Note - Nutrition Nutrition: Nutrition Category Date Time Status Liquid Diet [DIET] Diets 01/23/18 Lunch Active Attending/Attestation - Attestation I have personally seen and examined this patient.: Yes I have fully participated in the care of the patient.: Yes I have reviewed all pertinent clinical information: Yes Notes (Text): 01/24/18 17:31 I have seen and examined the patient. Medical records, lab studies, and imaging were reviewed by me and a management plan was formulated on multidisciplinary rounds with resident Dr. Garcia. I agree with their documented assessment and plan. Patient is breathing better with proper fluid removal from daily dialysis, will most likely need continual dialysis three times a week. EGD was negative for bleeding, h/h remains stable. Clinically improved, stable for downgrade to the floors. Critical Care Time 35 minutes. Multi-disciplinary rounds were performed with house staff, nursing, speech therapy, respiratory therapy, pharmacy and nutrition with integrated input from the primary team/attending and other consulting services. The documented time is cumulative and includes review of patient data/exams/labs/chart review and examination of the patient on rounds and throughout the day; time is exclusive of any procedures or teaching time. 01/24/18 17:34
[2018-01-24] MEDS: Azithromycin 500 MG in Sodium Chloride 0.9% 250 ML IVPB SCH (10:18)
[2018-01-24] MEDS: Sucralfate 1 gm/10 ml Oral Susp UD PO SCH ×2 (10:25→18:41)
--- NOTE | 2018-01-24 13:08 | CP.PCM.PN ---
Subjective - Date & Time of Evaluation Date of Evaluation: 01/24/18 Time of Evaluation: 13:05 - Subjective Subjective: Was called from ICU on 01/23 that patient had increased congestion- repeated dislysis for this; removed 1000ml fluid Awake now, same mental status No active bleeding see on GI study Azotemia better post HD Objective - Vital Signs/Intake and Output Vital Signs (last 24 hours): Temp Pulse Resp BP Pulse Ox 97.9 F 88 14 125/50 L 100 01/24/18 08:00 01/24/18 11:01 01/24/18 11:01 01/24/18 11:01 01/24/18 11:01 Intake and Output: 01/24/18 01/24/18 06:59 18:59 Intake Total 300 580 Output Total 950 Balance -650 580 - Medications Medications: Current Medications Acetaminophen (Tylenol 325mg Tab) 650 mg PO Q4 PRN PRN Reason: Pain, Mild (1-3) Albuterol/Ipratropium (Duoneb 3 Mg/0.5 Mg (3 Ml) Ud) 3 ml INH RQ6 [facility] Last Admin: 01/24/18 07:54 Dose: 3 ml Ferrous Sulfate (Feosol) 325 mg PO BID [facility] Last Admin: 01/24/18 10:25 Dose: 325 mg Folic Acid (Folic Acid) 1 mg PO DAILY [facility] Last Admin: 01/24/18 10:25 Dose: 1 mg Azithromycin 500 mg/ Sodium (Chloride) 250 mls @ 250 mls/hr IVPB DAILY [facility] PRN Reason: Protocol Last Admin: 01/24/18 10:18 Dose: 250 mls/hr Piperacillin Sod/Tazobactam Sod (Zosyn 2.25 Gm Iv Premix) 2.25 gm in 50 mls @ 100 mls/hr IVPB Q8H [facility] PRN Reason: Protocol Last Admin: 01/24/18 10:20 Dose: 100 mls/hr Levothyroxine Sodium (Synthroid) 100 mcg PO DAILY@0630 [facility] Last Admin: 01/24/18 06:30 Dose: Not Given Magnesium Hydroxide (Milk Of Magnesia) 30 ml PO HS PRN PRN Reason: Constipation Methylprednisolone (Solu-Medrol) 40 mg IVP Q8 [facility] Last Admin: 01/24/18 06:10 Dose: 40 mg Fluticasone/Salmeterol (Advair Diskus 250/50) 1 puff INH RQ12 [facility] Last Admin: 01/24/18 07:54 Dose: Not Given Sucralfate (Carafate Oral Susp) 1 gm PO BID [facility] Last Admin: 01/24/18 10:25 Dose: 1 gm - Labs Labs: 01/24/18 06:12 01/24/18 06:12 PT 12.7 SECONDS (9.7-12.2) H 01/24/18 06:12 INR 1.2 01/24/18 06:12 APTT 28 SECONDS (21-34) 01/24/18 06:12 - Constitutional Appears: No Acute Distress, Confused, Cachectic, Chronically Ill - Head Exam Head Exam: ATRAUMATIC, NORMAL INSPECTION - Eye Exam Eye Exam: EOMI, Normal appearance - Neck Exam Neck Exam: Normal Inspection. absent: Tenderness - Respiratory Exam Respiratory Exam: Rhonchi, NORMAL BREATHING PATTERN - Cardiovascular Exam Cardiovascular Exam: REGULAR RHYTHM, +S1 - GI/Abdominal Exam GI & Abdominal Exam: Soft. absent: Tenderness - Extremities Exam Extremities Exam: Normal Inspection. absent: Tenderness - Neurological Exam Neurological Exam: Altered - Skin Skin Exam: Dry, Warm Assessment and Plan (1) ESRD (end stage renal disease) Status: Acute (2) Severe anemia Status: Acute (3) Acute CHF Status: Acute (4) Atrial fibrillation with rapid ventricular response Status: Chronic - Assessment and Plan (Free Text) Plan: Repeat dialysis in AM OK if PICC needed as there is no plan for AV access [employer]
--- NOTE | 2018-01-24 14:56 | RAD ---
Date of service: 01/24/2018 HISTORY: Shortness of breath COMPARISON: 01/23/2018. FINDINGS: The right-sided dialysis catheter terminates at the cavoatrial junction. LUNGS: There is worsening severe pulmonary venous congestion. There is airspace disease in the right lower lobe. The left lung is clear. PLEURA: Small right pleural effusion, no pneumothorax apparent. CARDIOVASCULAR: The cardiomediastinal silhouette is stable. OSSEOUS STRUCTURES: No significant abnormalities. VISUALIZED UPPER ABDOMEN: Normal. OTHER FINDINGS: None. IMPRESSION: Right lower lobe airspace disease may represent atelectasis/pneumonia. Small right pleural effusion. Severe pulmonary venous congestion, worse since the prior examination. Dialysis catheter terminates at the cavoatrial junction.
--- NOTE | 2018-01-24 15:24 | RAD ---
Date of service: 01/24/2018 HISTORY: post PICC line insertion COMPARISON: 01/24/2018 at 10:49 a.m.. FINDINGS: The left PICC line terminates at the cavoatrial junction. The right-sided dialysis catheter terminates in the SVC. LUNGS: Again seen is severe pulmonary venous congestion. There is airspace disease in the right lower lobe. PLEURA: Small right pleural effusion, no pneumothorax apparent. CARDIOVASCULAR: Stable mild cardiomegaly. OSSEOUS STRUCTURES: No significant abnormalities. VISUALIZED UPPER ABDOMEN: Normal. OTHER FINDINGS: None. IMPRESSION: Left PICC line terminates at the cavoatrial junction. No pneumothorax. No other significant interval change.
--- NOTE | 2018-01-24 15:54 | CP.PCM.PN ---
Subjective - Date & Time of Evaluation Date of Evaluation: 01/24/18 Time of Evaluation: 13:30 - Subjective Subjective: clinically same Objective - Vital Signs/Intake and Output Vital Signs (last 24 hours): Temp Pulse Resp BP Pulse Ox 97.9 F 88 14 125/50 L 100 01/24/18 08:00 01/24/18 11:01 01/24/18 11:01 01/24/18 11:01 01/24/18 11:01 Intake and Output: 01/24/18 01/24/18 06:59 18:59 Intake Total 300 580 Output Total 950 Balance -650 580 - Medications Medications: Current Medications Acetaminophen (Tylenol 325mg Tab) 650 mg PO Q4 PRN PRN Reason: Pain, Mild (1-3) Albuterol/Ipratropium (Duoneb 3 Mg/0.5 Mg (3 Ml) Ud) 3 ml INH RQ6 [facility] Last Admin: 01/24/18 07:54 Dose: 3 ml Ferrous Sulfate (Feosol) 325 mg PO BID [facility] Last Admin: 01/24/18 10:25 Dose: 325 mg Folic Acid (Folic Acid) 1 mg PO DAILY [facility] Last Admin: 01/24/18 10:25 Dose: 1 mg Azithromycin 500 mg/ Sodium (Chloride) 250 mls @ 250 mls/hr IVPB DAILY [facility] PRN Reason: Protocol Last Admin: 01/24/18 10:18 Dose: 250 mls/hr Piperacillin Sod/Tazobactam Sod (Zosyn 2.25 Gm Iv Premix) 2.25 gm in 50 mls @ 100 mls/hr IVPB Q8H [facility] PRN Reason: Protocol Last Admin: 01/24/18 10:20 Dose: 100 mls/hr Levothyroxine Sodium (Synthroid) 100 mcg PO DAILY@0630 [facility] Last Admin: 01/24/18 06:30 Dose: Not Given Magnesium Hydroxide (Milk Of Magnesia) 30 ml PO HS PRN PRN Reason: Constipation Methylprednisolone (Solu-Medrol) 40 mg IVP Q8 [facility] Last Admin: 01/24/18 06:10 Dose: 40 mg Fluticasone/Salmeterol (Advair Diskus 250/50) 1 puff INH RQ12 [facility] Last Admin: 01/24/18 07:54 Dose: Not Given Sucralfate (Carafate Oral Susp) 1 gm PO BID [facility] Last Admin: 01/24/18 10:25 Dose: 1 gm - Labs Labs: 01/24/18 06:12 01/24/18 06:12 PT 12.7 SECONDS (9.7-12.2) H 01/24/18 06:12 INR 1.2 01/24/18 06:12 APTT 28 SECONDS (21-34) 01/24/18 06:12
--- NOTE | 2018-01-24 19:09 | PQF ---
PROVIDER RESPONSE TEXT: Metabolic Encephalopathy REVIEWER QUERY TEXT: Encephalopathy Type Encephalopathy is documented in the Medical Record. Please specify type Such as: -- Alcoholic -- Anoxic -- Due to medications or drugs (please specify) -- Hepatic failure (please specify if with or without coma) -- Hypertensive -- Metabolic -- Septic -- Toxic -- Wernicke?s -- Other, please specify The patient's Clinical Indicators include: 87 yo Male, who presents with lethargy pe: v/s: 98/35, sleepy, arousable to voice labs: h/h=4/12.4, ggq=785, cr=3.4 dx: Severe Anemia, Hypotension, ESRD on HD Mgt: Transfused 3 U PRBC, monitored in the ICU Query created by: Silvia Ford on 01/22/2018 5:50 PM Electronically signed by: Angelica FARRIS 01/24/2018 7:07 PM
--- NOTE | 2018-01-24 19:13 | CP.PCM.PN ---
Subjective - Date & Time of Evaluation Date of Evaluation: 01/24/18 Time of Evaluation: 14:00 - Subjective Subjective: dictated Objective - Vital Signs/Intake and Output Vital Signs (last 24 hours): Temp Pulse Resp BP Pulse Ox 97.9 F 88 14 125/50 L 100 01/24/18 08:00 01/24/18 11:01 01/24/18 11:01 01/24/18 11:01 01/24/18 11:01 Intake and Output: 01/24/18 01/25/18 18:59 06:59 Intake Total 790 Output Total 0 Balance 790 - Medications Medications: Current Medications Acetaminophen (Tylenol 325mg Tab) 650 mg PO Q4 PRN PRN Reason: Pain, Mild (1-3) Last Admin: 01/24/18 18:55 Dose: 650 mg Albuterol/Ipratropium (Duoneb 3 Mg/0.5 Mg (3 Ml) Ud) 3 ml INH RQ6 [facility] Last Admin: 01/24/18 07:54 Dose: 3 ml Ferrous Sulfate (Feosol) 325 mg PO BID [facility] Last Admin: 01/24/18 10:25 Dose: 325 mg Folic Acid (Folic Acid) 1 mg PO DAILY [facility] Last Admin: 01/24/18 10:25 Dose: 1 mg Azithromycin 500 mg/ Sodium (Chloride) 250 mls @ 250 mls/hr IVPB DAILY [facility] PRN Reason: Protocol Last Admin: 01/24/18 10:18 Dose: 250 mls/hr Piperacillin Sod/Tazobactam Sod (Zosyn 2.25 Gm Iv Premix) 2.25 gm in 50 mls @ 100 mls/hr IVPB Q8H [facility] PRN Reason: Protocol Last Admin: 01/24/18 18:00 Dose: 100 mls/hr Levothyroxine Sodium (Synthroid) 100 mcg PO DAILY@0630 [facility] Last Admin: 01/24/18 06:30 Dose: Not Given Magnesium Hydroxide (Milk Of Magnesia) 30 ml PO HS PRN PRN Reason: Constipation Methylprednisolone (Solu-Medrol) 40 mg IVP Q8 [facility] Last Admin: 01/24/18 18:42 Dose: 40 mg Fluticasone/Salmeterol (Advair Diskus 250/50) 1 puff INH RQ12 [facility] Last Admin: 01/24/18 07:54 Dose: Not Given Sucralfate (Carafate Oral Susp) 1 gm PO BID [facility] Last Admin: 01/24/18 18:41 Dose: 1 gm - Labs Labs: 01/24/18 06:12 01/24/18 06:12 PT 12.7 SECONDS (9.7-12.2) H 01/24/18 06:12 INR 1.2 01/24/18 06:12 APTT 28 SECONDS (21-34) 01/24/18 06:12
--- NOTE | 2018-01-24 22:11 | PN ---
DATE: 01/24/2018 LOCATION: ICU 8. SUBJECTIVE: This is an 87-year-old male seen and examined in rounds, without significant clinical changes or reported active bleeding. The entire chart is reviewed including, but not limited to, the most recent lab and radiology study results, current and previous medication list, current and previous medical events. Case discussed with the staff at the time of the round. Most recent lab results today showed hemoglobin 8.1, hematocrit 23.3, thrombocytopenia of 72, PT of 200.7, potassium 3.3, BUN 39, creatinine 1.9, glucose 139, calcium 7.8, albumin of 2.4, total protein 4.24.. PHYSICAL EXAMINATION: GENERAL: An 87-year-old male, comfortable in bed. VITAL SIGNS: Afebrile with pulse of 84, respiratory rate 16 to 18, blood pressure 130/54. HEENT: Showed pale, dry oral mucous membrane. Nonicteric sclerae. LUNGS: Few scattered crepitation. Decreased air entry at bases. HEART: Positive S1 and S2. ABDOMEN: Soft. Bowel sounds are present. No mass or organomegaly. No rebound tenderness or guarding. EXTREMITIES: Without significant clubbing, cyanosis, or edema. NEUROLOGIC: No reported new neurological deficits, sensory or motor. IMPRESSION: 1. Recent history of gastrointestinal blood loss with anemia and reexacerbation of peptic ulcer disease. 2. Known history of hypertension, congestive heart failure, chronic obstructive pulmonary disease associated with bronchitis. 3. History of hypothyroidism with osteoporosis. 4. Status post appendectomy indices to tumor mass lesion before. 5. Poorly controlled diabetes mellitus. 6. Known history of end-stage renal disease, known history of atrial fibrillation. SUGGESTIONS: 1. Continue current management. 2. Follow up cancer markers include CEA and PSA. 3. Should the patient have further drop of his hemoglobin and hematocrit, then colonoscopy is to be considered; otherwise, close observation to follow. Zarina Maddox MD
--- NOTE | 2018-01-24 23:36 | PN ---
DATE: 01/24/2018 SUBJECTIVE: The patient was awake. He was confused. They were going to put a PICC line in. PHYSICAL EXAMINATION: VITAL SIGNS: T-max was 97.9, pulse 89, blood pressure 126/51, respirations were 20. HEENT: Head is atraumatic, normocephalic. NECK: Supple. LUNGS: Clear today. HEART: S1, S2 are regular. ABDOMEN: Soft, nontender. EXTREMITIES: Have ecchymosis on upper extremities and needs a line. Extremities had no edema, nontender. LABORATORY DATA: Labs are noted. Labs show white count is 7.2, hemoglobin 8.1, hematocrit 23.3, platelet count is 72, still kind of low. Creatinine is 1.9, is better. Potassium is 3.3. His blood cultures came out positive for gram-negative rods. MEDICATIONS: He is on Zosyn and Zithromax. ASSESSMENT AND PLAN: He has been getting dialysis, and he remains on antibiotics and steroids. He was breathing on his own. He came in with severe anemia. Has acute congestive heart failure. Has had atrial fibrillation with rapid response and has end-stage renal disease. If peripherally inserted central catheter line needed as there is no plan for AV access, they were going to repeat the dialysis again in the morning. He has gram-negatives also and identification and sensitivity is pending. He is a dialysis patient. I am not sure what about the chest x-ray. Chest x-ray shows left peripherally inserted central catheter line at the cavoatrial junction. No pneumothorax. Probably, he got the line now when I am writing this note. At this time, I would repeat the cultures again and change the medication to Merrem and get echocardiogram if not done to rule out vegetation. He has dialysis, I want to see if he was getting through the catheter or was having a fistula which I should find out from Dr. Miller's note. He also has lung metastasis; it could be secondary to the lungs or the source could be the dialysis site. We will repeat the cultures tomorrow and changed to meropenem and we will follow. I will stay away from meropenem at this time because the platelets are low, and it is coming up, let me see his platelets. Platelets are slightly better night now, so we will continue with Zosyn itself and would repeat blood cultures tomorrow and give him gentamicin. We will follow. Carmen Alejandro MD
[2018-01-25] MEDS: Piperacill/Tazo 2.25gm in Dex 2.25 GM/50 ML BAG IVPB SCH ×2 (01:36→09:37)
[2018-01-25] MEDS: Albuterol-Ipratrop 3 mg / 0.5 (3 ml) UD INH SCH ×4 (02:59→19:36)
[2018-01-25] MEDS: MethylPREDNISolone 40 mg Vial IVP SCH ×3 (05:40→21:30)
[2018-01-25 06:30] LABS: BASO % 0.1 % (0.0-2.0); HEMOGLOBIN 6.6 g/dL (12.0-18.0); LYMPH # 0.1 K/uL (1.0-4.3); LYMPH % 2.7 % (20.0-40.0); MEAN CELL VOLUME 87.1 fL (80.0-94.0); MEAN CORPUSCULAR HEMOGLOBIN 29.4 pg (27.0-31.0); MEAN CORPUSCULAR HGB CONC 33.7 g/dL (33.0-37.0); MEAN PLATELET VOLUME 10.2 fL (7.2-11.7); MONO # 0.1 K/uL (0.0-0.8); MONO % 1.3 % (0.0-10.0); NEUT # 4.8 K/uL (1.8-7.0); NEUT % 95.9 % (50.0-75.0); PLATELET COUNT 86 K/uL (130-400); RBC 2.25 Mil/uL (4.40-5.90); RED CELL DISTRIBUTION WIDTH 15.7 % (11.5-14.5)
[2018-01-25 06:46] LABS: ALB/GLOB RATIO 1.2 (1.0-2.1); ALBUMIN 2.1 g/dL (3.5-5.0); CALCIUM 7.4 mg/dl (8.6-10.4)
[2018-01-25] MEDS: Fluticasone-Salmeterol 250-50mcg Diskus INH SCH ×2 (07:58→19:36)
[2018-01-25] MEDS: Azithromycin 500 MG in Sodium Chloride 0.9% 250 ML IVPB SCH (09:37)
[2018-01-25] MEDS: Sucralfate 1 gm/10 ml Oral Susp UD PO SCH ×2 (09:38→18:15)
[2018-01-25 10:03] LABS: ANISOCYTOSIS SLIGHT; BANDS 5 % (0-2); LYMPHOCYTE 3 % (20-40); MONOCYTE 1 % (0-10); NEUTROPHIL 91 % (50-75); PLATELET ESTIMATE DECREASED (NORMAL); TOTAL CELLS COUNTED 100
[2018-01-25 10:04] LABS: HYPOCHROMIC SLIGHT
[2018-01-25] MEDS: Meropenem 500 MG in Sodium Chloride 0.9% 100 ML IVPB SCH ×2 (11:44→21:30)
--- NOTE | 2018-01-25 11:46 | CP.PCM.PN ---
Subjective - Date & Time of Evaluation Date of Evaluation: 01/25/18 Time of Evaluation: 11:44 - Subjective Subjective: confused on pressors hemoglobin still low HD today with prbc unable to obtain ROS due to AMS Objective - Vital Signs/Intake and Output Vital Signs (last 24 hours): Temp Pulse Resp BP Pulse Ox 98.5 F 88 20 106/44 L 97 01/25/18 04:00 01/25/18 04:00 01/25/18 04:00 01/25/18 04:00 01/25/18 04:00 Intake and Output: 01/25/18 01/25/18 06:59 18:59 Intake Total 200 Output Total 0 Balance 200 - Medications Medications: Current Medications Acetaminophen (Tylenol 325mg Tab) 650 mg PO Q4 PRN PRN Reason: Pain, Mild (1-3) Last Admin: 01/25/18 01:41 Dose: 650 mg Albuterol/Ipratropium (Duoneb 3 Mg/0.5 Mg (3 Ml) Ud) 3 ml INH RQ6 [facility] Last Admin: 01/25/18 07:56 Dose: 3 ml Ferrous Sulfate (Feosol) 325 mg PO BID [facility] Last Admin: 01/25/18 09:38 Dose: 325 mg Folic Acid (Folic Acid) 1 mg PO DAILY [facility] Last Admin: 01/25/18 09:38 Dose: 1 mg Azithromycin 500 mg/ Sodium (Chloride) 250 mls @ 250 mls/hr IVPB DAILY [facility] PRN Reason: Protocol Last Admin: 01/25/18 09:37 Dose: 250 mls/hr Gentamicin Sulfate 80 mg/ (Sodium Chloride) 102 mls @ 100 mls/hr IVPB TTS [facility] PRN Reason: Protocol Meropenem 500 mg/ Sodium (Chloride) 100 mls @ 100 mls/hr IVPB Q12H [facility] PRN Reason: Protocol Levothyroxine Sodium (Synthroid) 100 mcg PO DAILY@0630 [facility] Last Admin: 01/24/18 06:30 Dose: Not Given Magnesium Hydroxide (Milk Of Magnesia) 30 ml PO HS PRN PRN Reason: Constipation Methylprednisolone (Solu-Medrol) 40 mg IVP Q8 [facility] Last Admin: 01/25/18 05:40 Dose: 40 mg Fluticasone/Salmeterol (Advair Diskus 250/50) 1 puff INH RQ12 [facility] Last Admin: 01/25/18 07:58 Dose: Not Given Sucralfate (Carafate Oral Susp) 1 gm PO BID [facility] Last Admin: 01/25/18 09:38 Dose: 1 gm - Labs Labs: 01/25/18 06:28 01/25/18 06:28 PT 12.7 SECONDS (9.7-12.2) H 01/24/18 06:12 INR 1.2 01/24/18 06:12 APTT 28 SECONDS (21-34) 01/24/18 06:12 - Constitutional Appears: Confused, Chronically Ill - Head Exam Head Exam: ATRAUMATIC, NORMAL INSPECTION - Eye Exam Eye Exam: EOMI, Normal appearance - ENT Exam ENT Exam: Mucous Membranes Moist - Neck Exam Neck Exam: Full ROM. absent: Lymphadenopathy - Respiratory Exam Respiratory Exam: Decreased Breath Sounds, Rhonchi - Cardiovascular Exam Cardiovascular Exam: Irregular Rhythm - GI/Abdominal Exam GI & Abdominal Exam: Distended. absent: Tenderness - Extremities Exam Extremities Exam: Pedal Edema Assessment and Plan - Assessment and Plan (Free Text) Assessment: HD today with UF and prbc continue to monitor hemoglobin pressor support as needed
--- NOTE | 2018-01-25 12:11 | PN ---
DATE: 01/25/2018 LOCATIONS: ICU 8. SUBJECTIVE: This is an 87-year-old male seen early in rounds without reported recent episodes of active bleeding or actual chest pain or palpitation. However, the patient is still incontinent of some darkish blackish fecal material with the complaint of generalized muscle pain. The entire chart is reviewed including but not limited to the most recent lab and radiology study results, current and the previous medication list, current and the previous medical events. Today's lab showed hemoglobin dropped to 6.6, hematocrit 19.6, with thrombocytopenia of 86, BUN 61, creatinine 2.5, calcium 7.4, with albumin 2.1, total protein 3.9, due to malnutrition. PHYSICAL EXAMINATION: GENERAL: An 87-year-old male. VITAL SIGNS: Afebrile, with pulse of 86, respiratory rate 20-22, blood pressure 114/54. HEENT: Pale, dry oral mucous membranes. Nonicteric sclerae. LUNGS: Few scattered crepitations, decreased air entry at bases. HEART: Positive S1 and S2. ABDOMEN: Soft, with mild generalized tenderness. No mass or organomegaly. No rebound tenderness or guarding. EXTREMITIES: With lower extremity edematous changes. No clubbing or cyanosis. NEUROLOGIC: No reported new neurological deficits, sensory or motor. IMPRESSION: 1. Anemia with subsequent drop of hemoglobin and hematocrit again with episodes of melena, the possibility of right side colon blood loss with possible gastrointestinal tract angiodysplasia. 2. Re-exacerbation of peptic ulcer disease. 3. Rule out occult gastrointestinal malignancy. 4. Known history, but not limited to chronic obstructive pulmonary disease, hypertension, congestive heart failure, bronchitis. 5. Known history of osteoporosis with hypothyroidism. 6. Malnutrition, with hypoalbuminemia. 7. Poorly controlled hypertension. 8. Known history of end-stage renal disease, atrial fibrillation, with electrolyte imbalance. SUGGESTIONS: 1. Continue current management. 2. Central hyperalimentation. 3. Repeat stool for occult blood. 4. The patient may need colonoscopy only when he is stable, if there is subsequent and significant drop of hemoglobin and hematocrit. Zarina Maddox MD [facility] # [id number]
--- NOTE | 2018-01-25 16:02 | CP.PCM.PN ---
Subjective - Date & Time of Evaluation Date of Evaluation: 01/25/18 Time of Evaluation: 15:40 - Subjective Subjective: Patient having dialysis appears shaking,positive blood cultures for ESBL will need Right chest wall catheter present will need to be changed in view of septiciemia . Patient is awake but confused Objective - Vital Signs/Intake and Output Vital Signs (last 24 hours): Temp Pulse Resp BP Pulse Ox 98.3 F 83 17 112/56 L 100 01/25/18 15:52 01/25/18 15:52 01/25/18 15:52 01/25/18 15:52 01/25/18 15:00 Intake and Output: 01/25/18 01/25/18 06:59 18:59 Intake Total 200 0 Output Total 0 Balance 200 0 - Medications Medications: Current Medications Acetaminophen (Tylenol 325mg Tab) 650 mg PO Q4 PRN PRN Reason: Pain, Mild (1-3) Last Admin: 01/25/18 12:34 Dose: 650 mg Albuterol/Ipratropium (Duoneb 3 Mg/0.5 Mg (3 Ml) Ud) 3 ml INH RQ6 [facility] Last Admin: 01/25/18 13:29 Dose: 3 ml Ferrous Sulfate (Feosol) 325 mg PO BID [facility] Last Admin: 01/25/18 09:38 Dose: 325 mg Folic Acid (Folic Acid) 1 mg PO DAILY [facility] Last Admin: 01/25/18 09:38 Dose: 1 mg Azithromycin 500 mg/ Sodium (Chloride) 250 mls @ 250 mls/hr IVPB DAILY [facility] PRN Reason: Protocol Last Admin: 01/25/18 09:37 Dose: 250 mls/hr Gentamicin Sulfate 80 mg/ (Sodium Chloride) 102 mls @ 100 mls/hr IVPB TTS [facility] PRN Reason: Protocol Meropenem 500 mg/ Sodium (Chloride) 100 mls @ 100 mls/hr IVPB Q12H [facility] PRN Reason: Protocol Last Admin: 01/25/18 11:44 Dose: 100 mls/hr Levothyroxine Sodium (Synthroid) 100 mcg PO DAILY@0630 [facility] Last Admin: 01/24/18 06:30 Dose: Not Given Magnesium Hydroxide (Milk Of Magnesia) 30 ml PO HS PRN PRN Reason: Constipation Methylprednisolone (Solu-Medrol) 40 mg IVP Q8 [facility] Last Admin: 01/25/18 05:40 Dose: 40 mg Fluticasone/Salmeterol (Advair Diskus 250/50) 1 puff INH RQ12 [facility] Last Admin: 01/25/18 07:58 Dose: Not Given Sucralfate (Carafate Oral Susp) 1 gm PO BID [facility] Last Admin: 01/25/18 09:38 Dose: 1 gm - Labs Labs: 01/25/18 06:28 01/25/18 06:28 PT 12.7 SECONDS (9.7-12.2) H 01/24/18 06:12 INR 1.2 01/24/18 06:12 APTT 28 SECONDS (21-34) 01/24/18 06:12 - Constitutional Appears: Confused - Head Exam Head Exam: ATRAUMATIC, NORMOCEPHALIC - Eye Exam Eye Exam: Normal appearance - Neck Exam Neck Exam: Normal Inspection - Respiratory Exam Respiratory Exam: NORMAL BREATHING PATTERN Additional comments: no wheezing ,no ronchi - Cardiovascular Exam Cardiovascular Exam: REGULAR RHYTHM - GI/Abdominal Exam GI & Abdominal Exam: Soft, Normal Bowel Sounds - Extremities Exam Additional comments: foot protectors on Assessment and Plan (1) E. coli septic shock Assessment & Plan: most likely lungs and or cathter sepsis has a dialysis catheter right chest wall, needs vascular eval. also needs echo to r/o vegetation Status: Acute (2) Thrombocytopenia Status: Acute (3) NOEMI (acute kidney injury) Status: Acute
--- NOTE | 2018-01-25 16:17 | CP.PCM.PN ---
Subjective - Date & Time of Evaluation Date of Evaluation: 01/25/18 Time of Evaluation: 13:45 - Subjective Subjective: clinically same Objective - Vital Signs/Intake and Output Vital Signs (last 24 hours): Temp Pulse Resp BP Pulse Ox 98.3 F 76 16 115/56 L 100 01/25/18 16:10 01/25/18 16:10 01/25/18 16:10 01/25/18 16:10 01/25/18 16:00 Intake and Output: 01/25/18 01/25/18 06:59 18:59 Intake Total 200 325 Output Total 0 Balance 200 325 - Medications Medications: Current Medications Acetaminophen (Tylenol 325mg Tab) 650 mg PO Q4 PRN PRN Reason: Pain, Mild (1-3) Last Admin: 01/25/18 12:34 Dose: 650 mg Albuterol/Ipratropium (Duoneb 3 Mg/0.5 Mg (3 Ml) Ud) 3 ml INH RQ6 [facility] Last Admin: 01/25/18 13:29 Dose: 3 ml Ferrous Sulfate (Feosol) 325 mg PO BID [facility] Last Admin: 01/25/18 09:38 Dose: 325 mg Folic Acid (Folic Acid) 1 mg PO DAILY [facility] Last Admin: 01/25/18 09:38 Dose: 1 mg Azithromycin 500 mg/ Sodium (Chloride) 250 mls @ 250 mls/hr IVPB DAILY ANDREA PRN Reason: Protocol Last Admin: 01/25/18 09:37 Dose: 250 mls/hr Gentamicin Sulfate 80 mg/ (Sodium Chloride) 102 mls @ 100 mls/hr IVPB TTS ANDREA PRN Reason: Protocol Meropenem 500 mg/ Sodium (Chloride) 100 mls @ 100 mls/hr IVPB Q12H [facility]REA PRN Reason: Protocol Last Admin: 01/25/18 11:44 Dose: 100 mls/hr Levothyroxine Sodium (Synthroid) 100 mcg PO DAILY@0630 [facility] Last Admin: 01/24/18 06:30 Dose: Not Given Magnesium Hydroxide (Milk Of Magnesia) 30 ml PO HS PRN PRN Reason: Constipation Methylprednisolone (Solu-Medrol) 40 mg IVP Q8 [facility] Last Admin: 01/25/18 15:00 Dose: 40 mg Fluticasone/Salmeterol (Advair Diskus 250/50) 1 puff INH RQ12 [facility] Last Admin: 01/25/18 07:58 Dose: Not Given Sucralfate (Carafate Oral Susp) 1 gm PO BID [facility] Last Admin: 01/25/18 09:38 Dose: 1 gm - Labs Labs: 01/25/18 06:28 01/25/18 06:28 PT 12.7 SECONDS (9.7-12.2) H 01/24/18 06:12 INR 1.2 01/24/18 06:12 APTT 28 SECONDS (21-34) 01/24/18 06:12 - Constitutional Appears: Well - Head Exam Head Exam: ATRAUMATIC, NORMAL INSPECTION, NORMOCEPHALIC - Eye Exam Eye Exam: EOMI, Normal appearance, PERRL Pupil Exam: NORMAL ACCOMODATION, PERRL - ENT Exam ENT Exam: Mucous Membranes Moist, Normal Exam - Neck Exam Neck Exam: Full ROM, Normal Inspection. absent: Lymphadenopathy - Respiratory Exam Respiratory Exam: Decreased Breath Sounds - Cardiovascular Exam Cardiovascular Exam: REGULAR RHYTHM, +S1, +S2 - GI/Abdominal Exam GI & Abdominal Exam: Soft, Diminished Bowel Sounds - Rectal Exam Rectal Exam: Deferred
[2018-01-25] MEDS: Levothyroxine 100 MCG TAB PO SCH (19:49)
[2018-01-26] MEDS: Albuterol-Ipratrop 3 mg / 0.5 (3 ml) UD INH SCH ×4 (02:30→19:32)
[2018-01-26] MEDS: Levothyroxine 100 MCG TAB PO SCH (06:08)
[2018-01-26] MEDS: MethylPREDNISolone 40 mg Vial IVP SCH ×3 (06:08→21:43)
[2018-01-26] MEDS: Fluticasone-Salmeterol 250-50mcg Diskus INH SCH ×2 (07:57→19:32)
[2018-01-26] MEDS: Meropenem 500 MG in Sodium Chloride 0.9% 100 ML IVPB SCH ×2 (09:28→21:43)
[2018-01-26] MEDS: Sucralfate 1 gm/10 ml Oral Susp UD PO SCH ×2 (09:28→17:27)
[2018-01-26] MEDS: Azithromycin 500 MG in Sodium Chloride 0.9% 250 ML IVPB SCH (09:28)
--- NOTE | 2018-01-26 12:19 | CARD ---
APPROVED REPORT Date of service: 01/25/2018 EXAM: Two-dimensional and M-mode echocardiogram with Doppler and color Doppler. Other Information Quality : Technically LimitedRhythm : INDICATION GRAM NEGATIVE SEPTICIEMIA 2D DIMENSIONS IVSd0.7 (0.7-1.1cm)LVDd4.4 (3.9-5.9cm) LVOT Diameter1.9 (1.8-2.4cm)PWd0.9 (0.7-1.1cm) LVDs3.0 (2.5-4.0cm)FS (%) 31.5 % LVEF (%)59.6 (>50%) Mitral Valve MV E Dcrlnmhc257.7cm/sMV A Mjqkivuw826.2cm/sMV [id number] E/A ratio1.1MVA (PHT)4.06cm2 TDI E/Lateral E'0.0E/Medial E'0.0 Pulmonary Valve PV Peak Ttljptrq00.8cm/sPV Peak Grad.3mmHg Tricuspid Valve TR Peak Pxbcilbz277cc/sTR Peak Gr.[id number] LEFT VENTRICLE The left ventricle is normal size. There is normal left ventricular wall thickness. The left ventricular function is normal. The left ventricular ejection fraction is within the normal range. No regional wall motion abnormalities noted. The left ventricular diastolic function is normal. No left ventricle thrombus noted on this study. There is no ventricular septal defect visualized. There is no left ventricular aneurysm. There is no mass noted in the left ventricle. RIGHT VENTRICLE The right ventricle is normal size. There is normal right ventricular wall thickness. The right ventricular systolic function is normal. ATRIA The left atrium size is normal. The right atrium size is normal. The interatrial septum is intact with no evidence for an atrial septal defect. AORTIC VALVE The aortic valve is normal in structure and function. No aortic regurgitation is present. There is no aortic valvular stenosis. There is no aortic valvular vegetation. MITRAL VALVE The mitral valve is normal in structure and function. There is no evidence of mitral valve prolapse. There is no mitral valve stenosis. There is no mitral valve regurgitation noted. TRICUSPID VALVE The tricuspid valve is normal in structure and function. There is mild to moderate tricuspid regurgitation. Right ventricular systolic pressure is estimated at 50-60 mmHg. There is no tricuspid valve prolapse or vegetation. There is no tricuspid valve stenosis. PULMONIC VALVE The pulmonary valve is normal in structure and function. There is no pulmonic valvular regurgitation. There is no pulmonic valvular stenosis. GREAT VESSELS The aortic root is normal in size. The ascending aorta is normal in size. The pulmonary artery is normal. The IVC is normal in size and collapses >50% with inspiration. PERICARDIAL EFFUSION The pericardium appears normal. There is no pleural effusion. <Conclusion> The left ventricular function is normal. The left ventricular ejection fraction is within the normal range. No regional wall motion abnormalities noted. There is mild to moderate tricuspid regurgitation. Right ventricular systolic pressure is estimated at 50-60 mmHg.
--- NOTE | 2018-01-26 12:24 | CP.PCM.PN ---
Subjective - Date & Time of Evaluation Date of Evaluation: 01/26/18 Time of Evaluation: 12:21 - Subjective Subjective: Pulmonary Follow up, Covering Dr May The patient was Seen/interviewed and examined by me at the bedside, Medical records reviewed and Management issues were discussed and formulated with the house staff. 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 In the ED labwork was done and showed the patient had Hb of 4. Patient hypotensive with blood pressure of 78/30. ICU consulted for anemia with hb of 4 and hypotension. Comfortable, saturation low 96% on stephania cammula CXR B/L pleural effusion and consolidation, R> L Being treated for pneumonia with pleural effusion Clinically improving, hemodynamically improved Afebrile, A-Fib on the monitor Objective - Vital Signs/Intake and Output Vital Signs (last 24 hours): Temp Pulse Resp BP Pulse Ox 98.5 F 95 H 20 125/56 L 96 01/26/18 04:00 01/26/18 04:00 01/26/18 04:00 01/26/18 04:00 01/26/18 04:00 Intake and Output: 01/26/18 01/26/18 06:59 18:59 Intake Total 250 Output Total 1 Balance 249 - Medications Medications: Current Medications Acetaminophen (Tylenol 325mg Tab) 650 mg PO Q4 PRN PRN Reason: Pain, Mild (1-3) Last Admin: 01/25/18 20:44 Dose: 650 mg Albuterol/Ipratropium (Duoneb 3 Mg/0.5 Mg (3 Ml) Ud) 3 ml INH RQ6 [facility] Last Admin: 01/26/18 07:29 Dose: 3 ml Ferrous Sulfate (Feosol) 325 mg PO BID [facility] Last Admin: 01/26/18 09:28 Dose: 325 mg Folic Acid (Folic Acid) 1 mg PO DAILY [facility] Last Admin: 01/26/18 09:28 Dose: 1 mg Gentamicin Sulfate 80 mg/ (Sodium Chloride) 102 mls @ 100 mls/hr IVPB TTS ANDREA PRN Reason: Protocol Last Admin: 01/25/18 18:14 Dose: 100 mls/hr Meropenem 500 mg/ Sodium (Chloride) 100 mls @ 100 mls/hr IVPB Q12H [facility] PRN Reason: Protocol Last Admin: 01/26/18 09:28 Dose: 100 mls/hr Levothyroxine Sodium (Synthroid) 100 mcg PO DAILY@0630 [facility] Last Admin: 01/26/18 06:08 Dose: 100 mcg Magnesium Hydroxide (Milk Of Magnesia) 30 ml PO HS PRN PRN Reason: Constipation Methylprednisolone (Solu-Medrol) 40 mg IVP Q8 [facility] Last Admin: 01/26/18 06:08 Dose: 40 mg Fluticasone/Salmeterol (Advair Diskus 250/50) 1 puff INH RQ12 [facility] Last Admin: 01/26/18 07:57 Dose: 1 puff Sucralfate (Carafate Oral Susp) 1 gm PO BID [facility] Last Admin: 01/26/18 09:28 Dose: 1 gm - Labs Labs: 01/25/18 06:28 01/25/18 06:28 PT 12.7 SECONDS (9.7-12.2) H 01/24/18 06:12 INR 1.2 01/24/18 06:12 APTT 28 SECONDS (21-34) 01/24/18 06:12 - Constitutional Appears: Well, Non-toxic, Confused, Chronically Ill - Head Exam Head Exam: ATRAUMATIC, NORMAL INSPECTION - Eye Exam Eye Exam: EOMI, Normal appearance Pupil Exam: NORMAL ACCOMODATION, PERRL - Neck Exam Neck Exam: Full ROM. absent: Lymphadenopathy - Respiratory Exam Respiratory Exam: Decreased Breath Sounds, Prolonged Expiratory Phase, Rhonchi, Wheezes. absent: Accessory Muscle Use, Chest Wall Tenderness, Clear to Ausculation Bilateral, Respiratory Distress, NORMAL BREATHING PATTERN - Cardiovascular Exam Cardiovascular Exam: Irregular Rhythm, +S1, +S2. absent: Bradycardia, Tachycardia, REGULAR RHYTHM, JVD, RRR - GI/Abdominal Exam GI & Abdominal Exam: Distended, Soft, Normal Bowel Sounds. absent: Firm, Guarding, Rigid - Extremities Exam Extremities Exam: Normal Inspection. absent: Calf Tenderness, Full ROM, Pedal Edema, Tenderness - Back Exam Back Exam: absent: CVA tenderness (L), CVA tenderness (R) - Neurological Exam Neurological Exam: Alert, Altered, Awake Assessment and Plan (1) Pleural effusion Status: Acute (2) Atelectasis Status: Acute (3) COPD (chronic obstructive pulmonary disease) with acute bronchitis Status: Acute - Assessment and Plan (Free Text) Assessment: Afebrile on Zithromax, Continue for 5 days Follow up cultures Continue IV solumedrol 40mg Q 8H, davair and Duonebs as needed
--- NOTE | 2018-01-26 13:22 | PN ---
DATE: 01/26/2018 LOCATION: ICU 8. SUBJECTIVE: This is an 87-year-old male seen and examined in rounds, appeared to be more awake, alert, and oriented without reported recent active bleeding. However, the patient is still incontinent of tarry dark-colored fecal material, but no hematemesis. No reported actual chest pain or palpitation. The entire chart is reviewed including but not limited to the most recent lab and radiology study results, current and the previous medication list, current and the previous medical events. Today's lab results are still pending. However, the patient reported to have significant drop of hemoglobin and hematocrit with thrombocytopenia, with guaiac-positive stool with low albumin and low total protein, increased BUN and creatinine. PHYSICAL EXAMINATION: GENERAL: An 87-year-old male. VITAL SIGNS: Afebrile, with pulse of 92, respiratory rate 20-22, blood pressure 120/58. HEENT: Showed pale, dry oral mucous membranes. Nonicteric sclerae. LUNGS: Few scattered crepitations. Decreased air entry at bases. HEART: Positive S1 and S2. ABDOMEN: Soft, with mild generalized tenderness. No mass or organomegaly. No rebound tenderness or guarding. EXTREMITIES: Without significant clubbing, cyanosis, or edema. NEUROLOGIC: No reported neurological deficits, sensory or motor. IMPRESSION: 1. Anemia with reexacerbation of peptic ulcer disease. 2. Guaiac-positive stool with possible lower gastrointestinal blood loss versus occult gastrointestinal malignancy. 3. Known history of hypertension, congestive heart failure, chronic obstructive pulmonary disease, with bronchitis. 4. Hypothyroidism by history. 5. Malnutrition with hypoalbuminemia. 6. End-stage renal disease, on hemodialysis. SUGGESTIONS: 1. Continue current management. 2. Blood transfusion as needed to keep hemoglobin 10 g%. 3. If the patient has subsequent drop of hemoglobin and hematocrit, then colonoscopy should be kept in mind after adequate preparation, otherwise close observation to follow. Zarina Maddox MD
--- NOTE | 2018-01-26 14:25 | CP.PCM.PN ---
Subjective - Date & Time of Evaluation Date of Evaluation: 01/26/18 Time of Evaluation: 15:00 - Subjective Subjective: clinically same Objective - Vital Signs/Intake and Output Vital Signs (last 24 hours): Temp Pulse Resp BP Pulse Ox 98.5 F 113 H 20 103/48 L 92 L 01/26/18 04:00 01/26/18 14:00 01/26/18 14:00 01/26/18 12:12 01/26/18 14:00 Intake and Output: 01/26/18 01/26/18 06:59 18:59 Intake Total 250 Output Total 1 Balance 249 - Medications Medications: Current Medications Acetaminophen (Tylenol 325mg Tab) 650 mg PO Q4 PRN PRN Reason: Pain, Mild (1-3) Last Admin: 01/25/18 20:44 Dose: 650 mg Albuterol/Ipratropium (Duoneb 3 Mg/0.5 Mg (3 Ml) Ud) 3 ml INH RQ6 [facility] Last Admin: 01/26/18 13:41 Dose: 3 ml Ferrous Sulfate (Feosol) 325 mg PO BID [facility] Last Admin: 01/26/18 09:28 Dose: 325 mg Folic Acid (Folic Acid) 1 mg PO DAILY [facility] Last Admin: 01/26/18 09:28 Dose: 1 mg Gentamicin Sulfate 80 mg/ (Sodium Chloride) 102 mls @ 100 mls/hr IVPB TTS ANDREA PRN Reason: Protocol Last Admin: 01/25/18 18:14 Dose: 100 mls/hr Meropenem 500 mg/ Sodium (Chloride) 100 mls @ 100 mls/hr IVPB Q12H [facility] PRN Reason: Protocol Last Admin: 01/26/18 09:28 Dose: 100 mls/hr Levothyroxine Sodium (Synthroid) 100 mcg PO DAILY@0630 [facility] Last Admin: 01/26/18 06:08 Dose: 100 mcg Magnesium Hydroxide (Milk Of Magnesia) 30 ml PO HS PRN PRN Reason: Constipation Methylprednisolone (Solu-Medrol) 40 mg IVP Q8 [facility] Last Admin: 01/26/18 06:08 Dose: 40 mg Fluticasone/Salmeterol (Advair Diskus 250/50) 1 puff INH RQ12 [facility] Last Admin: 01/26/18 07:57 Dose: 1 puff Sucralfate (Carafate Oral Susp) 1 gm PO BID [facility] Last Admin: 01/26/18 09:28 Dose: 1 gm - Labs Labs: 01/25/18 06:28 01/25/18 06:28 PT 12.7 SECONDS (9.7-12.2) H 01/24/18 06:12 INR 1.2 01/24/18 06:12 APTT 28 SECONDS (21-34) 01/24/18 06:12 - Constitutional Appears: Well - Head Exam Head Exam: ATRAUMATIC, NORMAL INSPECTION, NORMOCEPHALIC - Eye Exam Eye Exam: EOMI, Normal appearance, PERRL Pupil Exam: NORMAL ACCOMODATION, PERRL - ENT Exam ENT Exam: Mucous Membranes Moist, Normal Exam - Neck Exam Neck Exam: Full ROM, Normal Inspection. absent: Lymphadenopathy - Respiratory Exam Respiratory Exam: Decreased Breath Sounds - Cardiovascular Exam Cardiovascular Exam: REGULAR RHYTHM, +S1, +S2 - GI/Abdominal Exam GI & Abdominal Exam: Soft, Diminished Bowel Sounds - Rectal Exam Rectal Exam: Deferred Assessment and Plan - Assessment and Plan (Free Text) Plan: Discussed with the family Not complaining of pain on the left arm On hemodialysis IV Vanco Solu-Medrol Family is around As ordered
--- NOTE | 2018-01-26 19:39 | CP.PCM.PN ---
Subjective - Date & Time of Evaluation Date of Evaluation: 01/24/18 Time of Evaluation: 12:00 - Subjective Subjective: Confused Objective - Vital Signs/Intake and Output Vital Signs (last 24 hours): Temp Pulse Resp BP Pulse Ox 98.6 F 108 H 20 101/46 L 99 01/26/18 16:00 01/26/18 16:00 01/26/18 16:00 01/26/18 15:36 01/26/18 16:00 Intake and Output: 01/26/18 01/27/18 18:59 06:59 Intake Total 530 Balance 530 - Medications Medications: Current Medications Acetaminophen (Tylenol 325mg Tab) 650 mg PO Q4 PRN PRN Reason: Pain, Mild (1-3) Last Admin: 01/25/18 20:44 Dose: 650 mg Albuterol/Ipratropium (Duoneb 3 Mg/0.5 Mg (3 Ml) Ud) 3 ml INH RQ6 [facility] Last Admin: 01/26/18 19:32 Dose: 3 ml Ferrous Sulfate (Feosol) 325 mg PO BID [facility] Last Admin: 01/26/18 17:27 Dose: 325 mg Folic Acid (Folic Acid) 1 mg PO DAILY [facility] Last Admin: 01/26/18 09:28 Dose: 1 mg Gentamicin Sulfate 80 mg/ (Sodium Chloride) 102 mls @ 100 mls/hr IVPB TTS [facility]REA PRN Reason: Protocol Last Admin: 01/25/18 18:14 Dose: 100 mls/hr Meropenem 500 mg/ Sodium (Chloride) 100 mls @ 100 mls/hr IVPB Q12H [facility] PRN Reason: Protocol Last Admin: 01/26/18 09:28 Dose: 100 mls/hr Levothyroxine Sodium (Synthroid) 100 mcg PO DAILY@0630 [facility] Last Admin: 01/26/18 06:08 Dose: 100 mcg Magnesium Hydroxide (Milk Of Magnesia) 30 ml PO HS PRN PRN Reason: Constipation Methylprednisolone (Solu-Medrol) 40 mg IVP Q8 [facility] Last Admin: 01/26/18 14:30 Dose: 40 mg Fluticasone/Salmeterol (Advair Diskus 250/50) 1 puff INH RQ12 [facility] Last Admin: 01/26/18 19:32 Dose: 1 puff Sucralfate (Carafate Oral Susp) 1 gm PO BID [facility] Last Admin: 01/26/18 17:27 Dose: 1 gm - Labs Labs: 01/25/18 06:28 01/25/18 06:28 PT 12.7 SECONDS (9.7-12.2) H 01/24/18 06:12 INR 1.2 01/24/18 06:12 APTT 28 SECONDS (21-34) 01/24/18 06:12 - Head Exam Head Exam: ATRAUMATIC - Eye Exam Eye Exam: Normal appearance - ENT Exam ENT Exam: Mucous Membranes Dry - Respiratory Exam Respiratory Exam: NORMAL BREATHING PATTERN - Cardiovascular Exam Cardiovascular Exam: +S1, +S2 - Extremities Exam Extremities Exam: Pedal Edema Assessment and Plan (1) Anemia Assessment & Plan: chronic disease, renal disease GIANA per renal FOBT positive transfusion support PRN Status: Acute (2) Thrombocytopenia Assessment & Plan: secondary to sepsis no current DIC Status: Acute (3) Neuroendocrine cancer Assessment & Plan: on appendix s/p surgery lung lesions ? metastasis f/u chromogranin A level Status: Acute
--- NOTE | 2018-01-26 19:41 | CP.PCM.PN ---
Subjective - Date & Time of Evaluation Date of Evaluation: 01/25/18 Time of Evaluation: 18:00 - Subjective Subjective: Confused. Objective - Vital Signs/Intake and Output Vital Signs (last 24 hours): Temp Pulse Resp BP Pulse Ox 98.6 F 108 H 20 101/46 L 99 01/26/18 16:00 01/26/18 16:00 01/26/18 16:00 01/26/18 15:36 01/26/18 16:00 Intake and Output: 01/26/18 01/27/18 18:59 06:59 Intake Total 530 Balance 530 - Medications Medications: Current Medications Acetaminophen (Tylenol 325mg Tab) 650 mg PO Q4 PRN PRN Reason: Pain, Mild (1-3) Last Admin: 01/25/18 20:44 Dose: 650 mg Albuterol/Ipratropium (Duoneb 3 Mg/0.5 Mg (3 Ml) Ud) 3 ml INH RQ6 [facility] Last Admin: 01/26/18 19:32 Dose: 3 ml Ferrous Sulfate (Feosol) 325 mg PO BID [facility] Last Admin: 01/26/18 17:27 Dose: 325 mg Folic Acid (Folic Acid) 1 mg PO DAILY [facility] Last Admin: 01/26/18 09:28 Dose: 1 mg Gentamicin Sulfate 80 mg/ (Sodium Chloride) 102 mls @ 100 mls/hr IVPB TTS [facility]RE[facility] PRN Reason: Protocol Last Admin: 01/25/18 18:14 Dose: 100 mls/hr Meropenem 500 mg/ Sodium (Chloride) 100 mls @ 100 mls/hr IVPB Q12H [facility] PRN Reason: Protocol Last Admin: 01/26/18 09:28 Dose: 100 mls/hr Levothyroxine Sodium (Synthroid) 100 mcg PO DAILY@0630 [facility] Last Admin: 01/26/18 06:08 Dose: 100 mcg Magnesium Hydroxide (Milk Of Magnesia) 30 ml PO HS PRN PRN Reason: Constipation Methylprednisolone (Solu-Medrol) 40 mg IVP Q8 [facility] Last Admin: 01/26/18 14:30 Dose: 40 mg Fluticasone/Salmeterol (Advair Diskus 250/50) 1 puff INH RQ12 [facility] Last Admin: 01/26/18 19:32 Dose: 1 puff Sucralfate (Carafate Oral Susp) 1 gm PO BID [facility] Last Admin: 01/26/18 17:27 Dose: 1 gm - Labs Labs: 01/25/18 06:28 01/25/18 06:28 PT 12.7 SECONDS (9.7-12.2) H 01/24/18 06:12 INR 1.2 01/24/18 06:12 APTT 28 SECONDS (21-34) 01/24/18 06:12 - Head Exam Head Exam: ATRAUMATIC - Eye Exam Eye Exam: Normal appearance - ENT Exam ENT Exam: Mucous Membranes Dry - Respiratory Exam Respiratory Exam: NORMAL BREATHING PATTERN - Cardiovascular Exam Cardiovascular Exam: +S1, +S2 - GI/Abdominal Exam GI & Abdominal Exam: Normal Bowel Sounds Assessment and Plan (1) Anemia Assessment & Plan: chronic disease, renal disease GIANA per renal FOBT positive transfusion support PRN Status: Acute (2) Thrombocytopenia Assessment & Plan: secondary to sepsis no current DIC Status: Acute (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
--- NOTE | 2018-01-27 00:20 | CON ---
DATE: 01/22/2018 LOCATION: ICU 8. HISTORY OF PRESENT ILLNESS: This is an 87 years old male was admitted to the hospital through the emergency room from a half-way due to change of mental status, being lethargic with generalized weakness and malaise with intermittent period of shortness of breath. It has to be mentioned that all the information obtained from the medical record, medical staff and nursing staff notes as the patient unable to give accurate history. No reported actual bleeding or significant shortness of breath. PAST MEDICAL HISTORY: Including but not limited to; 1. Colon CA with status post partial colon resection as per record with mets to the lung. 2. History of COPD with bronchitis. 3. History of hypertension, congestive heart failure. 4. Peptic ulcer disease, hypothyroidism, osteoporosis by history. 5. Osteoarthritis with left hip surgery before. 6. Previous history of atrial fibrillation. 7. The patient has history of status post appendectomy due to was reported as a mass of the appendix. 8. Last upper endoscopy was done on 06/2017 and the latest colonoscopy as per record done on 04/2014. FAMILY HISTORY: Positive for diabetes mellitus. SOCIAL HISTORY: Ex tobacco smoker, but no recent history of alcohol intake. ALLERGIES TO MEDICATIONS: UNCLEAR. CURRENT MEDICATIONS: Post admission medication list was reviewed. After being admitted to the hospital, the patient was found to have hemoglobin of 4, hematocrit 12.4 with thrombocytopenia of 64. Blood glucose level 122, BUN 112, creatinine 3.4 due to the patient's known past medical history of renal failure, on hemodialysis. PHYSICAL EXAMINATION: GENERAL: An 87 years old male, somewhat awake, alert. VITAL SIGNS: Afebrile with pulse of 84, respiratory 20-24, blood pressure of 104/48. HEENT: Showed pale dry oral mucous membrane. Nonicteric sclerae. LUNGS: Few scattered crepitation with decreased air entry at bases. HEART: Positive S1 and S2. ABDOMEN: Soft with slight distension and mild generalized tenderness. No mass or organomegaly. No rebound tenderness or guarding. RECTAL: Examination deferred due to the patient's shortness of breath. EXTREMITIES: With lower extremities mild edematous changes. No clubbing or cyanosis. NEUROLOGIC: No reported new neurological deficits, sensory or motor. IMPRESSION: 1. Severe anemia, the possibility gastrointestinal blood loss upper versus lower was raised versus, less likely anemia secondary to chronic disease. 2. Thrombocytopenia of unclear etiology. 3. Multiple past medical history as mentioned above including, but not limited to colon cancer, partial colon resection, end-stage renal disease on hemodialysis, as well as hypertension, diabetes mellitus, chronic obstructive pulmonary disease with bronchitis. Rest as above. SUGGESTIONS: 1. Agree with your plan. 2. Correct the patient's electrolyte imbalance with also transfusion of platelets due to his thrombocytopenia. 3. Proton pump inhibitors. 4. Guaiac all the stools q.d. x3. 5. Blood transfusion to keep hemoglobin 10 gm percent. 6. Repeat cancer markers including CEA and PSA. 7. Endoscopic evaluation of the upper GI tract to follow but lower GI tract when the patient is more stable clinically and after blood transfusion and adequate preparation. 8. Further recommendation to follow. Thank you for letting me participate in your patient's case management. Zarina Maddox MD
[2018-01-27] MEDS: Albuterol-Ipratrop 3 mg / 0.5 (3 ml) UD INH SCH ×4 (01:38→19:00)
[2018-01-27] MEDS: MethylPREDNISolone 40 mg Vial IVP SCH ×3 (05:46→22:19)
[2018-01-27] MEDS: Levothyroxine 100 MCG TAB PO SCH (05:46)
[2018-01-27 06:35] LABS: BASO % 0.1 % (0.0-2.0); EOS % 0.1 % (0.0-4.0); HEMOGLOBIN 10.3 g/dL (12.0-18.0); LYMPH # 0.1 K/uL (1.0-4.3); LYMPH % 2.2 % (20.0-40.0); MEAN CELL VOLUME 88.5 fL (80.0-94.0); MEAN CORPUSCULAR HEMOGLOBIN 30.2 pg (27.0-31.0); MEAN CORPUSCULAR HGB CONC 34.2 g/dL (33.0-37.0); MEAN PLATELET VOLUME 9.1 fL (7.2-11.7); MONO # 0.2 K/uL (0.0-0.8); MONO % 2.3 % (0.0-10.0); NEUT # 6.3 K/uL (1.8-7.0); NEUT % 95.3 % (50.0-75.0); PLATELET COUNT 119 K/uL (130-400); RBC 3.41 Mil/uL (4.40-5.90); RED CELL DISTRIBUTION WIDTH 14.7 % (11.5-14.5); WHITE BLOOD COUNT 6.6 K/uL (4.8-10.8)
[2018-01-27] MEDS: Fluticasone-Salmeterol 250-50mcg Diskus INH SCH ×2 (07:56→19:00)
[2018-01-27 08:38] LABS: HYPOCHROMIC SLIGHT; LYMPHOCYTE 2 % (20-40); MONOCYTE 2 % (0-10); NEUTROPHIL 96 % (50-75); PLATELET ESTIMATE SLIGHTLY DECREASED (NORMAL); TOTAL CELLS COUNTED 100
[2018-01-27] MEDS: Sucralfate 1 gm/10 ml Oral Susp UD PO SCH ×2 (09:26→17:06)
[2018-01-27] MEDS: Meropenem 500 MG in Sodium Chloride 0.9% 100 ML IVPB SCH ×2 (09:38→22:23)
--- NOTE | 2018-01-27 11:38 | CP.PCM.PN ---
Subjective - Date & Time of Evaluation Date of Evaluation: 01/27/18 Time of Evaluation: 11:35 - Subjective Subjective: more alert does not feel well s/p dialysis 01/25 no new complaint on treatment for bacteremia Objective - Vital Signs/Intake and Output Vital Signs (last 24 hours): Temp Pulse Resp BP Pulse Ox 98 F 102 H 15 124/65 97 01/27/18 04:00 01/27/18 04:00 01/27/18 04:00 01/27/18 04:00 01/27/18 04:00 - Medications Medications: Current Medications Acetaminophen (Tylenol 325mg Tab) 650 mg PO Q4 PRN PRN Reason: Pain, Mild (1-3) Last Admin: 01/25/18 20:44 Dose: 650 mg Albuterol/Ipratropium (Duoneb 3 Mg/0.5 Mg (3 Ml) Ud) 3 ml INH RQ6 [facility] Last Admin: 01/27/18 07:30 Dose: 3 ml Ferrous Sulfate (Feosol) 325 mg PO BID [facility] Last Admin: 01/27/18 09:26 Dose: 325 mg Folic Acid (Folic Acid) 1 mg PO DAILY [facility] Last Admin: 01/27/18 09:26 Dose: 1 mg Gentamicin Sulfate 80 mg/ (Sodium Chloride) 102 mls @ 100 mls/hr IVPB TTS ANDREA PRN Reason: Protocol Last Admin: 01/25/18 18:14 Dose: 100 mls/hr Meropenem 500 mg/ Sodium (Chloride) 100 mls @ 100 mls/hr IVPB Q12H [facility] PRN Reason: Protocol Last Admin: 01/27/18 09:38 Dose: 100 mls/hr Levothyroxine Sodium (Synthroid) 100 mcg PO DAILY@0630 [facility] Last Admin: 01/27/18 05:46 Dose: 100 mcg Magnesium Hydroxide (Milk Of Magnesia) 30 ml PO HS PRN PRN Reason: Constipation Methylprednisolone (Solu-Medrol) 40 mg IVP Q8 [facility] Last Admin: 01/27/18 05:46 Dose: 40 mg Fluticasone/Salmeterol (Advair Diskus 250/50) 1 puff INH RQ12 [facility] Last Admin: 01/27/18 07:56 Dose: Not Given Sucralfate (Carafate Oral Susp) 1 gm PO BID [facility] Last Admin: 01/27/18 09:26 Dose: 1 gm - Labs Labs: 01/27/18 06:07 01/25/18 06:28 PT 12.7 SECONDS (9.7-12.2) H 01/24/18 06:12 INR 1.2 01/24/18 06:12 APTT 28 SECONDS (21-34) 01/24/18 06:12 - Constitutional Appears: No Acute Distress, Cachectic, Chronically Ill - Head Exam Head Exam: ATRAUMATIC, NORMAL INSPECTION - Eye Exam Eye Exam: EOMI, Normal appearance - Neck Exam Neck Exam: Normal Inspection. absent: Tenderness - Respiratory Exam Respiratory Exam: Clear to Ausculation Bilateral, NORMAL BREATHING PATTERN - Cardiovascular Exam Cardiovascular Exam: Tachycardia, Irregular Rhythm - GI/Abdominal Exam GI & Abdominal Exam: Soft. absent: Tenderness - Extremities Exam Extremities Exam: Normal Inspection. absent: Tenderness - Neurological Exam Neurological Exam: Altered - Skin Skin Exam: Dry, Warm Assessment and Plan (1) ESRD (end stage renal disease) Status: Acute (2) Severe anemia Status: Acute (3) Acute CHF Status: Acute (4) Atrial fibrillation with rapid ventricular response Status: Chronic (5) Bacteremia due to Escherichia coli Status: Acute - Assessment and Plan (Free Text) Plan: IV ABs Dailysis TTS Consider change in HD cath due to bacteremia
--- NOTE | 2018-01-27 13:13 | CP.PCM.PCO ---
Physician Communication Note - Physician Communication Note Physician Communication Note: Family meeting tomorrow at 5 pm
--- NOTE | 2018-01-27 13:17 | CP.PCM.CON ---
History of Present Illness - History of Present Illness History of Present Illness: Palliative consult requested by Thomas Garcia the Car Mechanic Helper, for goals of care discussion patient is a 87 yo male [place] with changes in mental status and lethargy fallowed by intermittent SOB. CXR on admission showed Mild pulmonary venous congestion and pulmonary effusion. SoluMedrol started. CT head was negative intracranial bleeding but significant encephalomacia was seen indicating possibility of trauma and fallow up was suggested. Patient found with large, tarry stools and positive of Guac. S/P Endoscopy yesterday, Doctor Eliazar on board,. gastritis, hiatal hernia and esophagitis seen. Patient is on Protonix. E Coli in blood diagnosed and Merrem and Genta IV on board. PMH: ESRD with HD M-T-F, colon CA, S/P partial resection, lung mets, COPD, CHF Soc. Hx: single, [facility] resident, daughter Oneyda contact lens curve grinder Fam. Hx: DM in family Review of Systems - Review of Systems All systems: reviewed and no additional remarkable complaints except Review of Systems: ROS unobtainable from patient due to intermitent confusion. ROS obtained from nursing. per nursing, patient is more alert today and talks more butstill confused. Past Patient History - Infectious Disease Hx of Infectious Diseases: None - Past Medical History & Family History Past Medical History?: Yes Past Family History: Reviewed and not pertinent - Past Social History Smoking Status: Former Smoker Chewing Tobacco Use: No Cigar Use: No Alcohol: None Drugs: Denies Home Situation {Lives}: Senior Living - CARDIAC Hx Cardiac Disorders: Yes Hx Atrial Fibrillation: Yes Hx Congestive Heart Failure: Yes Hx Hypertension: Yes - PULMONARY Hx Respiratory Disorders: Yes Hx Bronchitis: Yes Hx Chronic Obstructive Pulmonary Disease (COPD): Yes Hx Emphysema: Yes Hx Pneumonia: Yes - NEUROLOGICAL Hx Neurological Disorder: No - HEENT Hx HEENT Problems: Yes Hx Cataracts: Yes - RENAL Hx Chronic Kidney Disease: Yes Hx Dialysis: Yes Type of Dialysis Access: PermaCath Date of Last Dialysis Treatment: 01/20/18 Hx Kidney Stones: No - ENDOCRINE/METABOLIC Hx Endocrine Disorders: Yes Hx Hypothyroidism: Yes - HEMATOLOGICAL/ONCOLOGICAL Hx Blood Disorders: Yes Hx Anemia: Yes Hx Blood Transfusions: Yes Hx Human Immunodeficiency Virus (HIV): No Hx Sickle Cell Disease: No - INTEGUMENTARY Hx Dermatological Problems: No - MUSCULOSKELETAL/RHEUMATOLOGICAL Hx Musculoskeletal Disorders: Yes Hx Arthritis: Yes Hx Falls: No Hx Osteoporosis: Yes - GASTROINTESTINAL Hx Gastrointestinal Disorders: Yes Hx Crohn's Disease: No Hx Diverticulitis: No Hx Gall Bladder Disease: No Hx Gastritis: Yes Hx Pancreatitis: No Other/Comment: Ca of colon - GENITOURINARY/GYNECOLOGICAL Hx Genitourinary Disorders: No Hx Sexually Transmitted Disorders: No - PSYCHIATRIC Hx Anxiety: No Hx Bipolar Disorder: No Hx Depression: No Hx Post Traumatic Stress Disorder: No Hx Schizophrenia: No Hx Substance Use: No - SURGICAL HISTORY Hx Surgeries: Yes Hx Joint Replacement: Yes (left hip replacement) Hx Orthopedic Surgery: Yes (hip surgery) Other/Comment: colon resection 06/2016 - ANESTHESIA Hx Anesthesia: Yes Hx Anesthesia Reactions: No Hx Malignant Hyperthermia: No Meds Allergies/Adverse Reactions: Allergies Allergy/AdvReac Type Severity Reaction Status Date / Time No Known Allergies Allergy Verified 01/22/18 11:49 - Medications Medications: Current Medications Acetaminophen (Tylenol 325mg Tab) 650 mg PO Q4 PRN PRN Reason: Pain, Mild (1-3) Last Admin: 01/25/18 20:44 Dose: 650 mg Albuterol/Ipratropium (Duoneb 3 Mg/0.5 Mg (3 Ml) Ud) 3 ml INH RQ6 [facility] Last Admin: 01/27/18 07:30 Dose: 3 ml Ferrous Sulfate (Feosol) 325 mg PO BID [facility] Last Admin: 01/27/18 09:26 Dose: 325 mg Folic Acid (Folic Acid) 1 mg PO DAILY [facility] Last Admin: 01/27/18 09:26 Dose: 1 mg Gentamicin Sulfate 80 mg/ (Sodium Chloride) 102 mls @ 100 mls/hr IVPB TTS ANDREA PRN Reason: Protocol Last Admin: 01/25/18 18:14 Dose: 100 mls/hr Meropenem 500 mg/ Sodium (Chloride) 100 mls @ 100 mls/hr IVPB Q12H [facility] PRN Reason: Protocol Last Admin: 01/27/18 09:38 Dose: 100 mls/hr Levothyroxine Sodium (Synthroid) 100 mcg PO DAILY@0630 [facility] Last Admin: 01/27/18 05:46 Dose: 100 mcg Magnesium Hydroxide (Milk Of Magnesia) 30 ml PO HS PRN PRN Reason: Constipation Methylprednisolone (Solu-Medrol) 40 mg IVP Q8 [facility] Last Admin: 01/27/18 05:46 Dose: 40 mg Fluticasone/Salmeterol (Advair Diskus 250/50) 1 puff INH RQ12 [facility] Last Admin: 01/27/18 07:56 Dose: Not Given Sucralfate (Carafate Oral Susp) 1 gm PO BID [facility] Last Admin: 01/27/18 09:26 Dose: 1 gm Physical Exam - Constitutional Appears: No Acute Distress, Chronically Ill - Head Exam Head Exam: ATRAUMATIC, NORMAL INSPECTION, NORMOCEPHALIC - Eye Exam Eye Exam: EOMI, Normal appearance, PERRL Pupil Exam: NORMAL ACCOMODATION, PERRL - ENT Exam ENT Exam: Mucous Membranes Moist, Normal Exam - Neck Exam Neck exam: Positive for: Normal Inspection - Respiratory Exam Respiratory Exam: Decreased Breath Sounds, NORMAL BREATHING PATTERN - Cardiovascular Exam Cardiovascular Exam: Tachycardia - GI/Abdominal Exam GI & Abdominal Exam: Normal Bowel Sounds, Soft - Rectal Exam Rectal Exam: Black Stool - Extremities Exam Extremities exam: Positive for: pedal edema - Back Exam Back exam: NORMAL INSPECTION - Neurological Exam Neurological exam: Alert, Altered - Psychiatric Exam Psychiatric exam: Flat Affect - Skin Skin Exam: Normal Color, Warm Results - Vital Signs Recent Vital Signs: Last Vital Signs Temp 98 F 01/27/18 04:00 Pulse 99 H 01/27/18 08:00 Resp 15 01/27/18 04:00 BP 124/65 01/27/18 04:00 Pulse Ox 97 01/27/18 04:00 - Labs Result Diagrams: 01/27/18 06:07 01/25/18 06:28 Labs: Laboratory Results - last 24 hr 01/27/18 06:07 WBC 6.6 RBC 3.41 L Hgb 10.3 L D Hct 30.2 L MCV 88.5 MCH 30.2 MCHC 34.2 RDW 14.7 H Plt Count 119 L D MPV 9.1 Neut % (Auto) 95.3 H Lymph % (Auto) 2.2 L [place] % (Auto) 2.3 Eos % (Auto) 0.1 Baso % (Auto) 0.1 Neut # (Auto) 6.3 Lymph # (Auto) 0.1 L [place] # (Auto) 0.2 Eos # (Auto) 0.0 Baso # (Auto) 0.0 Neutrophils % (Manual) 96 H Lymphocytes % (Manual) 2 L Monocytes % (Manual) 2 Platelet Estimate Slightly decreased L Hypochromasia (manual) Slight Assessment & Plan - Assessment and Plan (Free Text) Assessment: Palliative consult DNR/DNI, copy of POLST on chart, PCP 20% I reviewed medical records, all diagnostic studies, examined and interviewed patient in the bed Patient is alert, confused and with speech that is clear. Patient examined in recliner chair in ICU. Physical exam reveals chronically ill male in no acute distress. When asked how he felt, patient answered " no good", but was not able to further elaborate on this statement. His left arm and both calfs are wrapped up due to weeping edema. very limited ROM and patient needs max assistance with ADLs. Per nursing, patient is incontinent of large , tarry stools. Hb today is 10.3 after blood transfusions, was 6.6. Upper endoscopy did not find source of GI bleeding. Folic acid and FeSO4 on board. Bacteremia is treated with IV antibiotics. Previous admission record reveals POLST signed on 06/29/16 by the patient, indicating DNR/DNI. Patient was not able to discuss Code status again. I spoke to his daughter Oneyda over the phone and we agreed to meet tomorrow at 5 pm and discuss goals of care. Impression * Chronically ill male with multiple co morbidities * Confusion * Rectal bleed * Anemia secondary to GI blood loss * At risk for significant pressure sores 2nd to limited mobility and incontinence * Blood infection Suggestions * Promote safety, reorient as needed * Promote skin integrity * Maintain Hb > 10 * GI per Doctor Eliazar * Continue IV antibiotics * DNR/DNI per POLST on chart Family meeting tomorrow with patient's daughter Oneyda. Will discuss Comfort care if OK with PMD.
--- NOTE | 2018-01-27 15:37 | CP.PCM.PN ---
Subjective - Date & Time of Evaluation Date of Evaluation: 01/27/18 Time of Evaluation: 14:45 - Subjective Subjective: clinically same Objective - Vital Signs/Intake and Output Vital Signs (last 24 hours): Temp Pulse Resp BP Pulse Ox 98 F 99 H 15 124/65 97 01/27/18 04:00 01/27/18 08:00 01/27/18 04:00 01/27/18 04:00 01/27/18 04:00 - Medications Medications: Current Medications Acetaminophen (Tylenol 325mg Tab) 650 mg PO Q4 PRN PRN Reason: Pain, Mild (1-3) Last Admin: 01/25/18 20:44 Dose: 650 mg Albuterol/Ipratropium (Duoneb 3 Mg/0.5 Mg (3 Ml) Ud) 3 ml INH RQ6 [facility] Last Admin: 01/27/18 13:43 Dose: 3 ml Ferrous Sulfate (Feosol) 325 mg PO BID [facility] Last Admin: 01/27/18 09:26 Dose: 325 mg Folic Acid (Folic Acid) 1 mg PO DAILY [facility] Last Admin: 01/27/18 09:26 Dose: 1 mg Gentamicin Sulfate 80 mg/ (Sodium Chloride) 102 mls @ 100 mls/hr IVPB TTS ANDREA PRN Reason: Protocol Last Admin: 01/25/18 18:14 Dose: 100 mls/hr Meropenem 500 mg/ Sodium (Chloride) 100 mls @ 100 mls/hr IVPB Q12H [facility] PRN Reason: Protocol Last Admin: 01/27/18 09:38 Dose: 100 mls/hr Levothyroxine Sodium (Synthroid) 100 mcg PO DAILY@0630 [facility] Last Admin: 01/27/18 05:46 Dose: 100 mcg Magnesium Hydroxide (Milk Of Magnesia) 30 ml PO HS PRN PRN Reason: Constipation Methylprednisolone (Solu-Medrol) 40 mg IVP Q8 [facility] Last Admin: 01/27/18 14:18 Dose: 40 mg Fluticasone/Salmeterol (Advair Diskus 250/50) 1 puff INH RQ12 [facility] Last Admin: 01/27/18 07:56 Dose: Not Given Sucralfate (Carafate Oral Susp) 1 gm PO BID [facility] Last Admin: 01/27/18 09:26 Dose: 1 gm - Labs Labs: 01/27/18 06:07 01/25/18 06:28 PT 12.7 SECONDS (9.7-12.2) H 01/24/18 06:12 INR 1.2 01/24/18 06:12 APTT 28 SECONDS (21-34) 01/24/18 06:12 - Constitutional Appears: Well - Head Exam Head Exam: ATRAUMATIC, NORMAL INSPECTION, NORMOCEPHALIC - Eye Exam Eye Exam: EOMI, Normal appearance, PERRL Pupil Exam: NORMAL ACCOMODATION, PERRL - ENT Exam ENT Exam: Mucous Membranes Moist, Normal Exam - Neck Exam Neck Exam: Full ROM, Normal Inspection. absent: Lymphadenopathy - Respiratory Exam Respiratory Exam: Decreased Breath Sounds - Cardiovascular Exam Cardiovascular Exam: REGULAR RHYTHM, +S1, +S2 - GI/Abdominal Exam GI & Abdominal Exam: Soft, Diminished Bowel Sounds - Rectal Exam Rectal Exam: Deferred
--- NOTE | 2018-01-27 15:51 | PN ---
DATE: 01/27/2018 LOCATION: ICU 8. SUBJECTIVE: This 87-year-old male seen and examined in rounds, still on contact isolation without reported active bleeding at the time of my physical examination with reported melena on and off before, but no reported active hematemesis. No reported actual chest pain, palpitation. The entire chart is reviewed including but not limited to the most recent lab and radiology study results, current and the previous medication list, current and the previous medical events, and the patient received two units of blood transfusion with hemoglobin of 10.3, hematocrit 30.2 with thrombocytopenia of 119. Rest of lab results still pending. PHYSICAL EXAMINATION: GENERAL: An 87-year-old male. VITAL SIGNS: Afebrile with pulse of 98, respiratory rate 20 to 22, blood pressure of 120/68. HEENT: Showed pale, dry oral mucous membrane. Nonicteric sclerae. LUNGS: Few scattered crepitation. Decreased air entry at bases. HEART: Positive S1 and S2. ABDOMEN: Soft with slight generalized tenderness. No mass or organomegaly. No rebound tenderness or guarding. EXTREMITIES: Without significant clubbing, cyanosis or edema. NEUROLOGICAL: No reported new neurological deficits, sensory or motor. The patient is still on Z-Vaibhav as well as IV steroids. SUGGESTIONS: 1. Agree with your plan. 2. Due to the patient's recurrent episode of melena and subsequent drop of hemoglobin and hematocrit, we will repeat H and H. If it drops further more, then consider colonoscopy after adequate preparation. Zarina Maddox MD
--- NOTE | 2018-01-27 19:12 | CP.PCM.PN ---
Subjective - Date & Time of Evaluation Date of Evaluation: 01/27/18 Time of Evaluation: 14:15 - Subjective Subjective: dictated Objective - Vital Signs/Intake and Output Vital Signs (last 24 hours): Temp Pulse Resp BP Pulse Ox 98.2 F 92 H 16 118/62 100 01/27/18 16:00 01/27/18 16:00 01/27/18 16:00 01/27/18 16:00 01/27/18 16:00 Intake and Output: 01/27/18 01/28/18 18:59 06:59 Intake Total 250 Balance 250 - Medications Medications: Current Medications Acetaminophen (Tylenol 325mg Tab) 650 mg PO Q4 PRN PRN Reason: Pain, Mild (1-3) Last Admin: 01/25/18 20:44 Dose: 650 mg Albuterol/Ipratropium (Duoneb 3 Mg/0.5 Mg (3 Ml) Ud) 3 ml INH RQ6 [facility] Last Admin: 01/27/18 13:43 Dose: 3 ml Ferrous Sulfate (Feosol) 325 mg PO BID [facility] Last Admin: 01/27/18 17:06 Dose: 325 mg Folic Acid (Folic Acid) 1 mg PO DAILY [facility] Last Admin: 01/27/18 09:26 Dose: 1 mg Gentamicin Sulfate 80 mg/ (Sodium Chloride) 102 mls @ 100 mls/hr IVPB TTS ANDREA PRN Reason: Protocol Last Admin: 01/25/18 18:14 Dose: 100 mls/hr Meropenem 500 mg/ Sodium (Chloride) 100 mls @ 100 mls/hr IVPB Q12H [facility] PRN Reason: Protocol Last Admin: 01/27/18 09:38 Dose: 100 mls/hr Levothyroxine Sodium (Synthroid) 100 mcg PO DAILY@0630 [facility] Last Admin: 01/27/18 05:46 Dose: 100 mcg Magnesium Hydroxide (Milk Of Magnesia) 30 ml PO HS PRN PRN Reason: Constipation Methylprednisolone (Solu-Medrol) 40 mg IVP Q8 [facility] Last Admin: 01/27/18 14:18 Dose: 40 mg Fluticasone/Salmeterol (Advair Diskus 250/50) 1 puff INH RQ12 [facility] Last Admin: 01/27/18 07:56 Dose: Not Given Sucralfate (Carafate Oral Susp) 1 gm PO BID [facility] Last Admin: 01/27/18 17:06 Dose: 1 gm - Labs Labs: 01/27/18 06:07 01/25/18 06:28 PT 12.7 SECONDS (9.7-12.2) H 01/24/18 06:12 INR 1.2 01/24/18 06:12 APTT 28 SECONDS (21-34) 01/24/18 06:12 Assessment and Plan (1) E. coli septic shock Status: Acute (2) Thrombocytopenia Status: Acute (3) NOEMI (acute kidney injury) Status: Acute
[2018-01-28] MEDS: Albuterol-Ipratrop 3 mg / 0.5 (3 ml) UD INH SCH ×4 (01:05→19:50)
[2018-01-28] MEDS: MethylPREDNISolone 40 mg Vial IVP SCH ×3 (06:01→21:52)
[2018-01-28] MEDS: Levothyroxine 100 MCG TAB PO SCH (06:30)
[2018-01-28 06:40] LABS: EOS % 0.1 % (0.0-4.0); HEMOGLOBIN 10.3 g/dL (12.0-18.0); LYMPH # 0.2 K/uL (1.0-4.3); LYMPH % 2.4 % (20.0-40.0); MEAN CELL VOLUME 89.9 fL (80.0-94.0); MEAN CORPUSCULAR HGB CONC 33.4 g/dL (33.0-37.0); MEAN PLATELET VOLUME 8.5 fL (7.2-11.7); MONO # 0.3 K/uL (0.0-0.8); MONO % 3.4 % (0.0-10.0); NEUT # 7.7 K/uL (1.8-7.0); NEUT % 94.1 % (50.0-75.0); PLATELET COUNT 168 K/uL (130-400); RBC 3.43 Mil/uL (4.40-5.90); RED CELL DISTRIBUTION WIDTH 14.8 % (11.5-14.5); WHITE BLOOD COUNT 8.2 K/uL (4.8-10.8)
[2018-01-28 07:38] LABS: ALB/GLOB RATIO 1.1 (1.0-2.1); ALBUMIN 2.1 g/dL (3.5-5.0); CALCIUM 7.8 mg/dl (8.6-10.4)
[2018-01-28] MEDS: Fluticasone-Salmeterol 250-50mcg Diskus INH SCH ×2 (07:39→19:50)
--- NOTE | 2018-01-28 08:08 | PN ---
DATE: 01/27/2018 SUBJECTIVE: The patient was awake and alert and he is confused. He has a dialysis catheter which needs to come out as he has gram-negative septicemia. He remains on meropenem 500 mg every 12 and he was on gentamicin also and he is chronically ill, however. PHYSICAL EXAMINATION: HEENT: Head is atraumatic, normocephalic. LUNGS: Clear. HEART: Tachycardic. ABDOMEN: Soft. EXTREMITIES: Dry and warm to touch. ASSESSMENT AND PLAN: He has bacteremia due to Escherichia coli and will need probably change of hemodialysis catheter due to bacteremia, so needs vascular surgeon. We will follow. We will continue with Merrem and gentamicin at this time. Carmen Alejandro MD
[2018-01-28 08:20] LABS: BANDS 1 % (0-2); LYMPHOCYTE 1 % (20-40); TOTAL CELLS COUNTED 100
[2018-01-28 08:21] LABS: MONOCYTE 1 % (0-10); NEUTROPHIL 97 % (50-75); PLATELET ESTIMATE NORMAL (NORMAL)
[2018-01-28] MEDS: Sucralfate 1 gm/10 ml Oral Susp UD PO SCH ×2 (10:46→21:47)
[2018-01-28] MEDS: Meropenem 500 MG in Sodium Chloride 0.9% 100 ML IVPB SCH ×2 (10:49→21:58)
--- NOTE | 2018-01-28 11:28 | CP.PCM.PN ---
Subjective - Date & Time of Evaluation Date of Evaluation: 01/28/18 Time of Evaluation: 11:26 - Subjective Subjective: Awake, does not feel well Due to E.Coli bacteremia for catheter change On IV ABs Due for HD later today K repleted Family meeting pending Objective - Vital Signs/Intake and Output Vital Signs (last 24 hours): Temp Pulse Resp BP Pulse Ox 98.4 F 104 H 20 126/69 96 01/28/18 07:51 01/28/18 07:51 01/28/18 07:51 01/28/18 07:51 01/28/18 07:51 Intake and Output: 01/28/18 01/28/18 06:59 18:59 Intake Total 200 Balance 200 - Medications Medications: Current Medications Acetaminophen (Tylenol 325mg Tab) 650 mg PO Q4 PRN PRN Reason: Pain, Mild (1-3) Last Admin: 01/25/18 20:44 Dose: 650 mg Albuterol/Ipratropium (Duoneb 3 Mg/0.5 Mg (3 Ml) Ud) 3 ml INH RQ6 [facility] Last Admin: 01/28/18 07:39 Dose: 3 ml Ferrous Sulfate (Feosol) 325 mg PO BID [facility] Last Admin: 01/28/18 10:46 Dose: Not Given Folic Acid (Folic Acid) 1 mg PO DAILY [facility] Last Admin: 01/28/18 10:46 Dose: Not Given Gentamicin Sulfate 80 mg/ (Sodium Chloride) 102 mls @ 100 mls/hr IVPB TTS [facility] PRN Reason: Protocol Last Admin: 01/28/18 10:48 Dose: 100 mls/hr Meropenem 500 mg/ Sodium (Chloride) 100 mls @ 100 mls/hr IVPB Q12H [facility] PRN Reason: Protocol Last Admin: 01/28/18 10:49 Dose: 100 mls/hr Potassium Chloride (Potassium Chloride 20 Meq/100 Ml) 20 meq in 100 mls @ 50 mls/hr IVPB ONCE ONE Stop: 01/28/18 12:12 Last Admin: 01/28/18 10:51 Dose: 50 mls/hr Levothyroxine Sodium (Synthroid) 100 mcg PO DAILY@0630 [facility] Last Admin: 01/28/18 06:30 Dose: Not Given Magnesium Hydroxide (Milk Of Magnesia) 30 ml PO HS PRN PRN Reason: Constipation Methylprednisolone (Solu-Medrol) 40 mg IVP Q8 [facility] Last Admin: 01/28/18 06:01 Dose: 40 mg Fluticasone/Salmeterol (Advair Diskus 250/50) 1 puff INH RQ12 [facility] Last Admin: 01/28/18 07:39 Dose: Not Given Sucralfate (Carafate Oral Susp) 1 gm PO BID [facility] Last Admin: 01/28/18 10:46 Dose: Not Given - Labs Labs: 01/28/18 06:30 01/28/18 06:30 PT 12.7 SECONDS (9.7-12.2) H 01/24/18 06:12 INR 1.2 01/24/18 06:12 APTT 28 SECONDS (21-34) 01/24/18 06:12 - Constitutional Appears: No Acute Distress, Confused, Chronically Ill - Head Exam Head Exam: ATRAUMATIC, NORMAL INSPECTION - Eye Exam Eye Exam: EOMI, Normal appearance - Neck Exam Neck Exam: Normal Inspection. absent: Tenderness - Respiratory Exam Respiratory Exam: Clear to Ausculation Bilateral, NORMAL BREATHING PATTERN - Cardiovascular Exam Cardiovascular Exam: REGULAR RHYTHM, +S1 - GI/Abdominal Exam GI & Abdominal Exam: Soft. absent: Tenderness - Extremities Exam Extremities Exam: Normal Inspection. absent: Tenderness - Neurological Exam Neurological Exam: Altered - Skin Skin Exam: Dry, Warm Assessment and Plan (1) ESRD (end stage renal disease) Status: Acute (2) Severe anemia Status: Acute (3) Acute CHF Status: Acute (4) Atrial fibrillation with rapid ventricular response Status: Chronic (5) Bacteremia due to Escherichia coli Status: Acute - Assessment and Plan (Free Text) Plan: IV ABs for bacteremia Permcath change Dialysis later and TTS for now Family meeting pending Can stop dialysis if family wishes to stop- await decision
[2018-01-28] MEDS ORDERED: HEPARIN-NS 5,000 UNITS/500 ML 5,000 UNIT/500 ML BAG IV ONE (13:52)
[2018-01-28] MEDS ORDERED: ceFAZolin 1 gm in NS 0 GM/0 ML BAG IVPB ONE (13:53)
[2018-01-28] MEDS ORDERED: Lidocaine Hydrochloride 10 ML INJ ONE (13:53)
[2018-01-28] MEDS ORDERED: Iohexol 240 (50 ml) ONE ×2 (13:53→15:34)
[2018-01-28] MEDS ORDERED: Propofol 10 mg/ml Inj (20 ML) ONE (14:08)
--- NOTE | 2018-01-28 16:05 | PN ---
DATE: 01/28/2018 SUBJECTIVE: This is an 87-year-old male reported to be in a status of DNR and DNI, seen early in rounds today without significant clinical changes, appeared to be with period of confusion, disorientation, somewhat awake at times without reported active GI bleeding, nausea, vomiting or reported chest pain or palpitation, but intermittent period of shortness of breath. The entire chart is reviewed including but not limited to the most recent lab and radiology study results, current and the previous medication list, current and the previous medical events, and hemoglobin is 10.3, hematocrit 30.8 post blood transfusion with potassium 3.4, BUN 57, creatinine 3.1, calcium 7.8 with low albumin and low total protein. PHYSICAL EXAMINATION: GENERAL: An 87-year-old male. VITAL SIGNS: Afebrile with pulse of 100, respiratory rate 20 to 22, blood pressure of 130/62. HEENT: Showed pale, dry oral mucous membrane. Nonicteric sclerae. LUNGS: Few scattered crepitation. Decreased air entry at bases. HEART: Positive S1 and S2. ABDOMEN: Soft with mild generalized tenderness. No mass or organomegaly. No rebound tenderness or guarding. EXTREMITIES: Without significant edema, clubbing or cyanosis. NEUROLOGICAL: No reported new neurological deficit, sensory or motor. IMPRESSION: 1. Reported hypochromic microcytic anemia with rectal bleeding, none recently. 2. Re-exacerbation of peptic ulcer disease. 3. Status post upper endoscopy with biopsy. 4. Multiple past medical history including but not limited to change of mental status, hypertension, congestive heart failure, chronic obstructive pulmonary disease with recurrent bronchitis. 5. known history of hypothyroidism. 6. End-stage renal disease, on hemodialysis. SUGGESTIONS: 1. Continue current management. 2. Antireflux measure. 3. Peripheral hyperalimentation. 4. No need for aggressive GI procedures further more and close observation to follow. Zarina Maddox MD
[2018-01-28] MEDS ORDERED: Sodium Chloride 0.9% 50 ML IV ONE (16:12)
[2018-01-28] MEDS ORDERED: Oxycodone/Acetaminophen 5/325 mg Tab PO PRN (16:15)
--- NOTE | 2018-01-28 16:15 | PCM.SURG1 ---
Surgeon's Initial Post Op Note - Surgeon's Notes Surgeon: Dr. Agrawal Boiler Riveter: rosemary Robertson PGY3 Type of Anesthesia: IV Sedation, Local Anesthesia Administered By: TG Pre-Operative Diagnosis: End stage renal disease needing HD Operative Findings: erthema around R permacath site. Post-Operative Diagnosis: Same Operation Performed: removal of R Permacath. Placement of L Permacath Specimen/Specimens Removed: none Estimated Blood Loss: EBL {In ML}: 300 Blood Products Given: N/A Drains Used: No Drains Post-Op Condition: Fair Date of Surgery/Procedure: 01/28/18 Time of Surgery/Procedure: 16:14
--- NOTE | 2018-01-28 16:31 | RAD ---
Date of service: 01/28/2018 HISTORY: permacath, PACU COMPARISON: 01/24/2018 FINDINGS: LUNGS: Low-normal lung volumes Interval coalescent pulmonary edema and/or right basal infiltrate. PLEURA: Right pleural effusion slightly different projection possibly layering despite semi-erect labeling No pneumothorax CARDIOVASCULAR: Mild cardiomegaly. Central pulmonary venous congestion. Interstitial pulmonary edema increased since prior exam. Atherosclerotic vascular calcifications present. Especially over each apex. OSSEOUS STRUCTURES: No significant abnormalities. VISUALIZED UPPER ABDOMEN: Normal. OTHER FINDINGS: Dialysis catheter-via left approach right prior dialysis catheter removed. Left PICC line inserted position unchanged tip probably in right atrium IMPRESSION: Dialysis catheter removals and insertions as detailed above. Interval increased pulmonary interstitial edema Right pleural effusion probably in part layering-slight increase suspect. Right basal compressive atelectasis and/or coalescent pulmonary edema with or without infiltrate right lung base all considerations. Atherosclerotic vascular calcifications present.
--- NOTE | 2018-01-28 16:49 | CP.PCM.PN ---
Subjective - Date & Time of Evaluation Date of Evaluation: 01/28/18 Time of Evaluation: 16:47 - Subjective Subjective: patient offers no complaints. Patient is asking to go home. Objective - Vital Signs/Intake and Output Vital Signs (last 24 hours): Temp Pulse Resp BP Pulse Ox 97.4 F L 92 H 20 109/74 99 01/28/18 16:03 01/28/18 16:03 01/28/18 16:03 01/28/18 16:03 01/28/18 16:03 Intake and Output: 01/28/18 01/28/18 06:59 18:59 Intake Total 200 500 Balance 200 500 - Medications Medications: Current Medications Acetaminophen (Tylenol 325mg Tab) 650 mg PO Q4 PRN PRN Reason: Pain, Mild (1-3) Last Admin: 01/25/18 20:44 Dose: 650 mg Albuterol/Ipratropium (Duoneb 3 Mg/0.5 Mg (3 Ml) Ud) 3 ml INH RQ6 [facility] Last Admin: 01/28/18 13:21 Dose: Not Given Ferrous Sulfate (Feosol) 325 mg PO BID [facility] Last Admin: 01/28/18 10:46 Dose: Not Given Folic Acid (Folic Acid) 1 mg PO DAILY [facility] Last Admin: 01/28/18 10:46 Dose: Not Given Gentamicin Sulfate 80 mg/ (Sodium Chloride) 102 mls @ 100 mls/hr IVPB TTS ANDREA PRN Reason: Protocol Last Admin: 01/28/18 10:48 Dose: 100 mls/hr Meropenem 500 mg/ Sodium (Chloride) 100 mls @ 100 mls/hr IVPB Q12H [facility] PRN Reason: Protocol Last Admin: 01/28/18 10:49 Dose: 100 mls/hr Levothyroxine Sodium (Synthroid) 100 mcg PO DAILY@0630 [facility] Last Admin: 01/28/18 06:30 Dose: Not Given Magnesium Hydroxide (Milk Of Magnesia) 30 ml PO HS PRN PRN Reason: Constipation Methylprednisolone (Solu-Medrol) 40 mg IVP Q8 [facility] Last Admin: 01/28/18 14:29 Dose: Not Given Oxycodone/Acetaminophen (Percocet 5/325 Mg Tab) 2 tab PO Q4H PRN PRN Reason: Pain, severe (8-10) Stop: 01/31/18 16:16 Fluticasone/Salmeterol (Advair Diskus 250/50) 1 puff INH RQ12 [facility] Last Admin: 01/28/18 07:39 Dose: Not Given Sucralfate (Carafate Oral Susp) 1 gm PO BID [facility] Last Admin: 01/28/18 10:46 Dose: Not Given - Labs Labs: 01/28/18 06:30 01/28/18 06:30 PT 12.7 SECONDS (9.7-12.2) H 01/24/18 06:12 INR 1.2 01/24/18 06:12 APTT 28 SECONDS (21-34) 01/24/18 06:12 - Constitutional Appears: No Acute Distress, Chronically Ill - Head Exam Head Exam: ATRAUMATIC, NORMAL INSPECTION, NORMOCEPHALIC - Eye Exam Eye Exam: EOMI, Normal appearance, PERRL Pupil Exam: NORMAL ACCOMODATION, PERRL - ENT Exam ENT Exam: Mucous Membranes Moist, Normal Exam - Neck Exam Neck Exam: Full ROM, Normal Inspection - Respiratory Exam Respiratory Exam: Decreased Breath Sounds, NORMAL BREATHING PATTERN - Cardiovascular Exam Cardiovascular Exam: Tachycardia - GI/Abdominal Exam GI & Abdominal Exam: Normal Bowel Sounds - Rectal Exam Rectal Exam: Deferred - Extremities Exam Extremities Exam: Pedal Edema - Back Exam Additional comments: pressure sore - Neurological Exam Neurological Exam: Alert, Awake Neuro motor strength exam: Left Upper Extremity: 2/1, Right Upper Extremity: 2/1 , Left Lower Extremity: 2/1, Right Lower Extremity: 2/1 - Psychiatric Exam Psychiatric exam: Flat Affect - Skin Skin Exam: Pallor Assessment and Plan - Assessment and Plan (Free Text) Assessment: Patient seen and examined in bed. Patient is S/P removal of [place] o cath. No acute distress. Hb remains stable at 10.3. No further reports of tarry stool. Goals of care discussed over the phone with patient's daughter Oneyda who is main intensive care unit registered nurse for the patient at home. POLST signed by the patient 06/29/16 discussed with Oneyda. She is determined to try every option out there available to support her father's life. I reassured her that her father was just receiving that kind of care. I offered plenty of information about DNR/DNI and reassured her that it does not affect care that patient is receiving. Oneyda was very clear that her biggest concern was her father quality of life. She is aware of her father's diagnosis of colon cancer, ESRD, acute blood loss and so on. She admits that her father had told her that he was tired from everything. However, Oneyda feels that as a main intensive care unit registered nurse , she has right to make decision for her father. She is convinced that her father is not always able to advocate for himself due to intermittent confusion. She wants to decide on DNR/ DNI when she feels is the time. The daughter is further concerned with patient's pressure sores and his inability to walk. She is looking into wound clinic placement where patient can get the PT as well. She had discussed it with Doctor Jayson Doan. Impression * Chronically ill male , colon cancer * Limited mobility * weakness * pressure sores to LEs * Daughter Oneyda very much involved in care * Daughter Oneyda is insisting on Full Code status * Daughter has concern about discharge placement, is looking into wound clinic placement Suggestion * PT for OOB as tolerated * Refer to wound care * Full Code * Discharge planing. Advance care planing 45 min
--- NOTE | 2018-01-28 16:51 | CP.PCM.PN ---
Subjective - Date & Time of Evaluation Date of Evaluation: 01/28/18 Time of Evaluation: 08:00 - Subjective Subjective: clinically same Objective - Vital Signs/Intake and Output Vital Signs (last 24 hours): Temp Pulse Resp BP Pulse Ox 97.4 F L 92 H 20 109/74 99 01/28/18 16:03 01/28/18 16:03 01/28/18 16:03 01/28/18 16:03 01/28/18 16:03 Intake and Output: 01/28/18 01/28/18 06:59 18:59 Intake Total 200 500 Balance 200 500 - Medications Medications: Current Medications Acetaminophen (Tylenol 325mg Tab) 650 mg PO Q4 PRN PRN Reason: Pain, Mild (1-3) Last Admin: 01/25/18 20:44 Dose: 650 mg Albuterol/Ipratropium (Duoneb 3 Mg/0.5 Mg (3 Ml) Ud) 3 ml INH RQ6 [facility] Last Admin: 01/28/18 13:21 Dose: Not Given Ferrous Sulfate (Feosol) 325 mg PO BID [facility] Last Admin: 01/28/18 10:46 Dose: Not Given Folic Acid (Folic Acid) 1 mg PO DAILY [facility] Last Admin: 01/28/18 10:46 Dose: Not Given Gentamicin Sulfate 80 mg/ (Sodium Chloride) 102 mls @ 100 mls/hr IVPB TTS ANDREA PRN Reason: Protocol Last Admin: 01/28/18 10:48 Dose: 100 mls/hr Meropenem 500 mg/ Sodium (Chloride) 100 mls @ 100 mls/hr IVPB Q12H [facility] PRN Reason: Protocol Last Admin: 01/28/18 10:49 Dose: 100 mls/hr Levothyroxine Sodium (Synthroid) 100 mcg PO DAILY@0630 [facility] Last Admin: 01/28/18 06:30 Dose: Not Given Magnesium Hydroxide (Milk Of Magnesia) 30 ml PO HS PRN PRN Reason: Constipation Methylprednisolone (Solu-Medrol) 40 mg IVP Q8 [facility] Last Admin: 01/28/18 14:29 Dose: Not Given Oxycodone/Acetaminophen (Percocet 5/325 Mg Tab) 2 tab PO Q4H PRN PRN Reason: Pain, severe (8-10) Stop: 01/31/18 16:16 Fluticasone/Salmeterol (Advair Diskus 250/50) 1 puff INH RQ12 [facility] Last Admin: 01/28/18 07:39 Dose: Not Given Sucralfate (Carafate Oral Susp) 1 gm PO BID [facility] Last Admin: 01/28/18 10:46 Dose: Not Given - Labs Labs: 01/28/18 06:30 01/28/18 06:30 PT 12.7 SECONDS (9.7-12.2) H 01/24/18 06:12 INR 1.2 01/24/18 06:12 APTT 28 SECONDS (21-34) 01/24/18 06:12 - Constitutional Appears: Well - Head Exam Head Exam: ATRAUMATIC, NORMAL INSPECTION, NORMOCEPHALIC - Eye Exam Eye Exam: EOMI, Normal appearance, PERRL Pupil Exam: NORMAL ACCOMODATION, PERRL - ENT Exam ENT Exam: Mucous Membranes Moist, Normal Exam - Neck Exam Neck Exam: Full ROM, Normal Inspection. absent: Lymphadenopathy - Respiratory Exam Respiratory Exam: Decreased Breath Sounds - Cardiovascular Exam Cardiovascular Exam: REGULAR RHYTHM, +S1, +S2 - GI/Abdominal Exam GI & Abdominal Exam: Soft, Diminished Bowel Sounds - Rectal Exam Rectal Exam: Deferred
--- NOTE | 2018-01-28 16:57 | RAD ---
PROCEDURE: HISTORY: As Above COMPARISON: None TECHNIQUE: Total fluoroscopic time utilized during the procedure: 455 seconds. Total dose 89.91 mGy FINDINGS: Submitted images from the current procedure: 8 please refer to the physician's notes performing the procedure. IMPRESSION: Less than 1 hour fluoroscopic time utilized during performance of the procedure
[2018-01-28 19:02] LABS: BASO % 0.1 % (0.0-2.0); EOS % 0.1 % (0.0-4.0); HEMOGLOBIN 9.5 g/dL (12.0-18.0); LYMPH # 0.3 K/uL (1.0-4.3); LYMPH % 2.1 % (20.0-40.0); MEAN CELL VOLUME 90.6 fL (80.0-94.0); MEAN CORPUSCULAR HGB CONC 33.1 g/dL (33.0-37.0); MEAN PLATELET VOLUME 8.5 fL (7.2-11.7); MONO # 0.6 K/uL (0.0-0.8); NEUT # 13.4 K/uL (1.8-7.0); NEUT % 93.7 % (50.0-75.0); PLATELET COUNT 238 K/uL (130-400); RBC 3.17 Mil/uL (4.40-5.90); WHITE BLOOD COUNT 14.3 K/uL (4.8-10.8)
[2018-01-28 19:38] LABS: BANDS 2 % (0-2); LYMPHOCYTE 4 % (20-40); MICROCYTOSIS SLIGHT; MONOCYTE 6 % (0-10); NEUTROPHIL 88 % (50-75); PLATELET ESTIMATE NORMAL (NORMAL); TEARDROP CELLS SLIGHT; TOTAL CELLS COUNTED 100
[2018-01-28 19:39] LABS: LARGE PLATELETS PRESENT
--- NOTE | 2018-01-29 00:49 | OP ---
PROCEDURE DATE: 01/28/2018 PREOPERATIVE DIAGNOSIS: Renal failure. POSTOPERATIVE DIAGNOSIS: Renal failure. PROCEDURE CARRIED OUT: Removal of right internal jugular Permacath and placement of left internal jugular Permacath. SURGEON: Naseem Agrawal Jr., MD. SANE RN: Dr. Rondon. ANESTHESIOLOGIST: Mr. Chand. INDICATIONS: The patient is an elderly man with renal insufficiency, requires dialysis. OPERATIVE FINDINGS: The old catheter is removed. The patient is very fragile and there is bleeding from the removal site, which had to be controlled. In addition to the jugular site, the neck was oozing. After we have done this we then punctured the left jugular vein and under ultrasound guidance advanced the guidewire centrally. Eventually, we were able to place the sheath dilator in appropriate location to deliver a catheter. Initially, we had some problems with placement of the catheter, return of flow etc., and because of this the placement was somewhat difficult. Nonetheless, eventually we got into the proper position although was in slightly far into the atrium and into the inferior vena cava. There was excellent flow and the procedure was terminated. Operation carried out is removal of right-sided Permacath and placement of left internal jugular Permacath. It originated on the left chest wall went through the left internal jugular vein and terminated in the inferior vena cava . Naseem Agrawal Jr., MD
[2018-01-29] MEDS: Albuterol-Ipratrop 3 mg / 0.5 (3 ml) UD INH SCH ×4 (01:14→21:19)
[2018-01-29] MEDS: MethylPREDNISolone 40 mg Vial IVP SCH ×2 (06:02→14:33)
[2018-01-29] MEDS: Levothyroxine 100 MCG TAB PO SCH (06:14)
[2018-01-29 07:48] LABS: BASO % 0.2 % (0.0-2.0); EOS % 0.1 % (0.0-4.0); HEMOGLOBIN 8.6 g/dL (12.0-18.0); LYMPH # 0.2 K/uL (1.0-4.3); LYMPH % 1.5 % (20.0-40.0); MEAN CELL VOLUME 89.9 fL (80.0-94.0); MEAN CORPUSCULAR HGB CONC 33.4 g/dL (33.0-37.0); MEAN PLATELET VOLUME 8.7 fL (7.2-11.7); MONO # 0.3 K/uL (0.0-0.8); MONO % 2.5 % (0.0-10.0); NEUT # 10.7 K/uL (1.8-7.0); NEUT % 95.7 % (50.0-75.0); NRBC % 0.1 % (0.0-2.0); PLATELET COUNT 208 K/uL (130-400); RBC 2.88 Mil/uL (4.40-5.90); WHITE BLOOD COUNT 11.2 K/uL (4.8-10.8)
--- NOTE | 2018-01-29 09:22 | CP.PCM.PN ---
Subjective - Date & Time of Evaluation Date of Evaluation: 01/29/18 Time of Evaluation: : - Subjective Subjective: s/p dialysis 01/28- minimal UF appears same has been congested at times s/p permcath change 01/28 for bacteremia dialysis tolerated ok 01/28 Objective - Vital Signs/Intake and Output Vital Signs (last 24 hours): Temp Pulse Resp BP Pulse Ox 98 F 83 20 110/65 100 01/29/18 00:00 01/29/18 00:00 01/29/18 00:00 01/29/18 00:00 01/29/18 00:00 Intake and Output: 01/29/18 01/29/18 06:59 18:59 Intake Total 120 Balance 120 - Medications Medications: Current Medications Acetaminophen (Tylenol 325mg Tab) 650 mg PO Q4 PRN PRN Reason: Pain, Mild (1-3) Last Admin: 01/25/18 20:44 Dose: 650 mg Albuterol/Ipratropium (Duoneb 3 Mg/0.5 Mg (3 Ml) Ud) 3 ml INH RQ6 [facility] Last Admin: 01/29/18 07:25 Dose: 3 ml Ferrous Sulfate (Feosol) 325 mg PO BID [facility] Last Admin: 01/28/18 21:47 Dose: Not Given Folic Acid (Folic Acid) 1 mg PO DAILY [facility] Last Admin: 01/28/18 10:46 Dose: Not Given Gentamicin Sulfate 80 mg/ (Sodium Chloride) 102 mls @ 100 mls/hr IVPB TTS ANDREA PRN Reason: Protocol Last Admin: 01/28/18 10:48 Dose: 100 mls/hr Meropenem 500 mg/ Sodium (Chloride) 100 mls @ 100 mls/hr IVPB Q12H [facility] PRN Reason: Protocol Last Admin: 01/28/18 21:58 Dose: 100 mls/hr Levothyroxine Sodium (Synthroid) 100 mcg PO DAILY@0630 [facility] Last Admin: 01/29/18 06:14 Dose: 100 mcg Magnesium Hydroxide (Milk Of Magnesia) 30 ml PO HS PRN PRN Reason: Constipation Methylprednisolone (Solu-Medrol) 40 mg IVP Q8 [facility] Last Admin: 01/29/18 06:02 Dose: 40 mg Oxycodone/Acetaminophen (Percocet 5/325 Mg Tab) 2 tab PO Q4H PRN PRN Reason: Pain, severe (8-10) Stop: 01/31/18 16:16 Fluticasone/Salmeterol (Advair Diskus 250/50) 1 puff INH RQ12 [facility] Last Admin: 01/28/18 19:50 Dose: Not Given Sucralfate (Carafate Oral Susp) 1 gm PO BID [facility] Last Admin: 01/28/18 21:47 Dose: Not Given - Labs Labs: 01/29/18 07:35 01/28/18 06:30 PT 12.7 SECONDS (9.7-12.2) H 01/24/18 06:12 INR 1.2 01/24/18 06:12 APTT 28 SECONDS (21-34) 01/24/18 06:12 - Constitutional Appears: No Acute Distress, Confused, Chronically Ill - Head Exam Head Exam: ATRAUMATIC, NORMAL INSPECTION - Eye Exam Eye Exam: EOMI, Normal appearance - Neck Exam Neck Exam: absent: Tenderness - Respiratory Exam Respiratory Exam: Clear to Ausculation Bilateral, NORMAL BREATHING PATTERN - Cardiovascular Exam Cardiovascular Exam: REGULAR RHYTHM, +S1 - GI/Abdominal Exam GI & Abdominal Exam: Soft. absent: Tenderness - Extremities Exam Extremities Exam: Normal Inspection. absent: Tenderness - Neurological Exam Neurological Exam: Awake, CN II-XII Intact - Skin Skin Exam: Dry, Warm Assessment and Plan (1) ESRD (end stage renal disease) Status: Acute (2) Severe anemia Status: Acute (3) Acute CHF Status: Acute (4) Atrial fibrillation with rapid ventricular response Status: Chronic (5) Bacteremia due to Escherichia coli Status: Acute - Assessment and Plan (Free Text) Plan: Dialysis TTS for now- mild UF as patiejnt has been unstable Use new permcath IV ABs for bacteremia Continue to pursue family wishes- maintain dialysis schedule unless family wishes otherwise
[2018-01-29 10:06] LABS: ANISOCYTOSIS SLIGHT; BANDS 1 % (0-2); HYPOCHROMIC SLIGHT; LYMPHOCYTE 2 % (20-40); MONOCYTE 8 % (0-10); NEUTROPHIL 89 % (50-75); PLATELET ESTIMATE NORMAL (NORMAL); TOTAL CELLS COUNTED 100
[2018-01-29] MEDS: Sucralfate 1 gm/10 ml Oral Susp UD PO SCH ×2 (11:25→17:11)
[2018-01-29] MEDS: Meropenem 500 MG in Sodium Chloride 0.9% 100 ML IVPB SCH ×2 (11:25→22:00)
[2018-01-29] MEDS: Fluticasone-Salmeterol 250-50mcg Diskus INH SCH ×2 (11:34→21:18)
--- NOTE | 2018-01-29 12:51 | CP.PCM.PN ---
Subjective - Date & Time of Evaluation Date of Evaluation: 01/29/18 Time of Evaluation: 12:49 - Subjective Subjective: Vascular surgery progress note for Dr. Jeovanny José, PGY-2 Pt S & E at bedside at 0920 Pt resting comfortably in bed. Denies any problems, states he "feels the same as always". No problems/pain. Objective - Vital Signs/Intake and Output Vital Signs (last 24 hours): Temp Pulse Resp BP Pulse Ox 97.5 F L 94 H 20 100/64 96 01/29/18 07:00 01/29/18 07:00 01/29/18 07:00 01/29/18 07:00 01/29/18 07:00 Intake and Output: 01/29/18 01/29/18 06:59 18:59 Intake Total 120 Balance 120 - Medications Medications: Current Medications Acetaminophen (Tylenol 325mg Tab) 650 mg PO Q4 PRN PRN Reason: Pain, Mild (1-3) Last Admin: 01/25/18 20:44 Dose: 650 mg Albuterol/Ipratropium (Duoneb 3 Mg/0.5 Mg (3 Ml) Ud) 3 ml INH RQ6 [facility] Last Admin: 01/29/18 07:25 Dose: 3 ml Ferrous Sulfate (Feosol) 325 mg PO BID [facility] Last Admin: 01/29/18 11:25 Dose: 325 mg Folic Acid (Folic Acid) 1 mg PO DAILY [facility] Last Admin: 01/29/18 11:25 Dose: 1 mg Gentamicin Sulfate 80 mg/ (Sodium Chloride) 102 mls @ 100 mls/hr IVPB TTS [facility]RE[facility] PRN Reason: Protocol Last Admin: 01/28/18 10:48 Dose: 100 mls/hr Meropenem 500 mg/ Sodium (Chloride) 100 mls @ 100 mls/hr IVPB Q12H [facility] PRN Reason: Protocol Last Admin: 01/29/18 11:25 Dose: 100 mls/hr Levothyroxine Sodium (Synthroid) 100 mcg PO DAILY@0630 [facility] Last Admin: 01/29/18 06:14 Dose: 100 mcg Magnesium Hydroxide (Milk Of Magnesia) 30 ml PO HS PRN PRN Reason: Constipation Methylprednisolone (Solu-Medrol) 40 mg IVP Q8 [facility] Last Admin: 01/29/18 06:02 Dose: 40 mg Oxycodone/Acetaminophen (Percocet 5/325 Mg Tab) 2 tab PO Q4H PRN PRN Reason: Pain, severe (8-10) Stop: 01/31/18 16:16 Fluticasone/Salmeterol (Advair Diskus 250/50) 1 puff INH RQ12 [facility] Last Admin: 01/29/18 11:34 Dose: Not Given Sucralfate (Carafate Oral Susp) 1 gm PO BID [facility] Last Admin: 01/29/18 11:25 Dose: 1 gm - Labs Labs: 01/29/18 07:35 01/28/18 06:30 PT 12.7 SECONDS (9.7-12.2) H 01/24/18 06:12 INR 1.2 01/24/18 06:12 APTT 28 SECONDS (21-34) 01/24/18 06:12 - Constitutional Appears: Non-toxic, No Acute Distress - Head Exam Head Exam: ATRAUMATIC, NORMAL INSPECTION, NORMOCEPHALIC - Eye Exam Eye Exam: EOMI, Normal appearance - ENT Exam ENT Exam: Mucous Membranes Moist, Normal Exam - Neck Exam Additional comments: Left permacath in place over left chest wall diffuse ecchymoses over upper chest extending from left chest wall to right chest wall and lower neck- mildly tender - Respiratory Exam Respiratory Exam: NORMAL BREATHING PATTERN - Cardiovascular Exam Cardiovascular Exam: REGULAR RHYTHM, +S1, +S2 - GI/Abdominal Exam GI & Abdominal Exam: Soft. absent: Distended, Firm, Guarding, Tenderness - Extremities Exam Extremities Exam: Normal Inspection - Neurological Exam Neurological Exam: Alert, Awake, CN II-XII Intact, Oriented x3 - Psychiatric Exam Psychiatric exam: Normal Affect, Normal Mood - Skin Skin Exam: Dry, Intact, Warm. absent: Normal Color (ecchymoses over chest wall) Assessment and Plan - Assessment and Plan (Free Text) Assessment: 87M POD#1 s/p removal of R permacath, placement of L permacath Plan: Continue medical mgmt No further vascular surgery intervention as this time Please re-consult as needed DW Dr. Tanja José, PGY-2
--- NOTE | 2018-01-29 20:26 | CP.PCM.PN ---
Subjective - Date & Time of Evaluation Date of Evaluation: 01/29/18 Time of Evaluation: 07:45 - Subjective Subjective: clinically same Objective - Vital Signs/Intake and Output Vital Signs (last 24 hours): Temp Pulse Resp BP Pulse Ox 98.3 F 101 H 20 92/48 L 93 L 01/29/18 16:00 01/29/18 16:00 01/29/18 16:00 01/29/18 16:00 01/29/18 16:00 - Medications Medications: Current Medications Acetaminophen (Tylenol 325mg Tab) 650 mg PO Q4 PRN PRN Reason: Pain, Mild (1-3) Last Admin: 01/25/18 20:44 Dose: 650 mg Albuterol/Ipratropium (Duoneb 3 Mg/0.5 Mg (3 Ml) Ud) 3 ml INH RQ6 [facility] Last Admin: 01/29/18 13:24 Dose: 3 ml Ferrous Sulfate (Feosol) 325 mg PO BID [facility] Last Admin: 01/29/18 17:11 Dose: 325 mg Folic Acid (Folic Acid) 1 mg PO DAILY [facility] [place] Last Admin: 01/29/18 11:25 Dose: 1 mg Gentamicin Sulfate 80 mg/ (Sodium Chloride) 102 mls @ 100 mls/hr IVPB TTS [facility] PRN Reason: Protocol Last Admin: 01/28/18 10:48 Dose: 100 mls/hr Meropenem 500 mg/ Sodium (Chloride) 100 mls @ 100 mls/hr IVPB Q12H [facility] PRN Reason: Protocol Last Admin: 01/29/18 11:25 Dose: 100 mls/hr Levothyroxine Sodium (Synthroid) 100 mcg PO DAILY@0630 [facility] [place] Last Admin: 01/29/18 06:14 Dose: 100 mcg Magnesium Hydroxide (Milk Of Magnesia) 30 ml PO HS PRN PRN Reason: Constipation Methylprednisolone (Solu-Medrol) 40 mg IVP Q12H [facility] Oxycodone/Acetaminophen (Percocet 5/325 Mg Tab) 2 tab PO Q4H PRN PRN Reason: Pain, severe (8-10) Stop: 01/31/18 16:16 Last Admin: 01/29/18 20:10 Dose: 2 tab Fluticasone/Salmeterol (Advair Diskus 250/50) 1 puff INH RQ12 [facility] [place] Last Admin: 01/29/18 11:34 Dose: Not Given Sucralfate (Carafate Oral Susp) 1 gm PO BID [facility] Last Admin: 01/29/18 17:11 Dose: 1 gm - Labs Labs: 01/29/18 07:35 01/28/18 06:30 PT 12.7 SECONDS (9.7-12.2) H 01/24/18 06:12 INR 1.2 01/24/18 06:12 APTT 28 SECONDS (21-34) 01/24/18 06:12
--- NOTE | 2018-01-29 23:15 | CP.PCM.PN ---
Subjective - Date & Time of Evaluation Date of Evaluation: 01/26/18 Time of Evaluation: 12:00 - Subjective Subjective: Appears comfortable Objective - Vital Signs/Intake and Output Vital Signs (last 24 hours): Temp Pulse Resp BP Pulse Ox 98 F 101 H 20 100/60 93 L 01/29/18 22:18 01/29/18 16:00 01/29/18 16:00 01/29/18 22:18 01/29/18 16:00 - Medications Medications: Current Medications Acetaminophen (Tylenol 325mg Tab) 650 mg PO Q4 PRN PRN Reason: Pain, Mild (1-3) Last Admin: 01/25/18 20:44 Dose: 650 mg Albuterol/Ipratropium (Duoneb 3 Mg/0.5 Mg (3 Ml) Ud) 3 ml INH RQ6 [facility] Last Admin: 01/29/18 21:19 Dose: 3 ml Ferrous Sulfate (Feosol) 325 mg PO BID [facility] Last Admin: 01/29/18 17:11 Dose: 325 mg Folic Acid (Folic Acid) 1 mg PO DAILY [facility] Last Admin: 01/29/18 11:25 Dose: 1 mg Gentamicin Sulfate 80 mg/ (Sodium Chloride) 102 mls @ 100 mls/hr IVPB TTS [facility] PRN Reason: Protocol Last Admin: 01/28/18 10:48 Dose: 100 mls/hr Meropenem 500 mg/ Sodium (Chloride) 100 mls @ 100 mls/hr IVPB Q12H [facility] PRN Reason: Protocol Last Admin: 01/29/18 22:00 Dose: 100 mls/hr Levothyroxine Sodium (Synthroid) 100 mcg PO DAILY@0630 [facility] Last Admin: 01/29/18 06:14 Dose: 100 mcg Magnesium Hydroxide (Milk Of Magnesia) 30 ml PO HS PRN PRN Reason: Constipation Methylprednisolone (Solu-Medrol) 40 mg IVP Q12H [facility] Oxycodone/Acetaminophen (Percocet 5/325 Mg Tab) 2 tab PO Q4H PRN PRN Reason: Pain, severe (8-10) Stop: 01/31/18 16:16 Last Admin: 01/29/18 20:10 Dose: 2 tab Fluticasone/Salmeterol (Advair Diskus 250/50) 1 puff INH RQ12 [facility] Last Admin: 01/29/18 21:18 Dose: Not Given Sucralfate (Carafate Oral Susp) 1 gm PO BID [facility] Last Admin: 01/29/18 17:11 Dose: 1 gm - Labs Labs: 01/29/18 07:35 01/28/18 06:30 PT 12.7 SECONDS (9.7-12.2) H 01/24/18 06:12 INR 1.2 01/24/18 06:12 APTT 28 SECONDS (21-34) 01/24/18 06:12 - Head Exam Head Exam: ATRAUMATIC - Eye Exam Eye Exam: Normal appearance - ENT Exam ENT Exam: Mucous Membranes Dry - Respiratory Exam Respiratory Exam: NORMAL BREATHING PATTERN - Cardiovascular Exam Cardiovascular Exam: +S1, +S2 - GI/Abdominal Exam GI & Abdominal Exam: Normal Bowel Sounds Assessment and Plan (1) Anemia Assessment & Plan: chronic disease, renal disease GIANA per renal FOBT positive transfusion support PRN Status: Acute (2) Thrombocytopenia Assessment & Plan: secondary to sepsis no current DIC Status: Acute (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
--- NOTE | 2018-01-29 23:17 | CP.PCM.PN ---
Subjective - Date & Time of Evaluation Date of Evaluation: 01/27/18 Time of Evaluation: 09:00 - Subjective Subjective: Mental status improved Objective - Vital Signs/Intake and Output Vital Signs (last 24 hours): Temp Pulse Resp BP Pulse Ox 98 F 101 H 20 100/60 93 L 01/29/18 22:18 01/29/18 16:00 01/29/18 16:00 01/29/18 22:18 01/29/18 16:00 - Medications Medications: Current Medications Acetaminophen (Tylenol 325mg Tab) 650 mg PO Q4 PRN PRN Reason: Pain, Mild (1-3) Last Admin: 01/25/18 20:44 Dose: 650 mg Albuterol/Ipratropium (Duoneb 3 Mg/0.5 Mg (3 Ml) Ud) 3 ml INH RQ6 [facility] Last Admin: 01/29/18 21:19 Dose: 3 ml Ferrous Sulfate (Feosol) 325 mg PO BID [facility] [place] Last Admin: 01/29/18 17:11 Dose: 325 mg Folic Acid (Folic Acid) 1 mg PO DAILY [facility] [place] Last Admin: 01/29/18 11:25 Dose: 1 mg Gentamicin Sulfate 80 mg/ (Sodium Chloride) 102 mls @ 100 mls/hr IVPB TTS [facility] PRN Reason: Protocol Last Admin: 01/28/18 10:48 Dose: 100 mls/hr Meropenem 500 mg/ Sodium (Chloride) 100 mls @ 100 mls/hr IVPB Q12H [facility] PRN Reason: Protocol Last Admin: 01/29/18 22:00 Dose: 100 mls/hr Levothyroxine Sodium (Synthroid) 100 mcg PO DAILY@0630 [facility] [place] Last Admin: 01/29/18 06:14 Dose: 100 mcg Magnesium Hydroxide (Milk Of Magnesia) 30 ml PO HS PRN PRN Reason: Constipation Methylprednisolone (Solu-Medrol) 40 mg IVP Q12H [facility] Oxycodone/Acetaminophen (Percocet 5/325 Mg Tab) 2 tab PO Q4H PRN PRN Reason: Pain, severe (8-10) Stop: 01/31/18 16:16 Last Admin: 01/29/18 20:10 Dose: 2 tab Fluticasone/Salmeterol (Advair Diskus 250/50) 1 puff INH RQ12 [facility] [place] Last Admin: 01/29/18 21:18 Dose: Not Given Sucralfate (Carafate Oral Susp) 1 gm PO BID [facility] Last Admin: 01/29/18 17:11 Dose: 1 gm - Labs Labs: 01/29/18 07:35 01/28/18 06:30 PT 12.7 SECONDS (9.7-12.2) H 01/24/18 06:12 INR 1.2 01/24/18 06:12 APTT 28 SECONDS (21-34) 01/24/18 06:12 - Head Exam Head Exam: ATRAUMATIC - Eye Exam Eye Exam: Normal appearance - ENT Exam ENT Exam: Mucous Membranes Dry - Respiratory Exam Respiratory Exam: NORMAL BREATHING PATTERN - Cardiovascular Exam Cardiovascular Exam: +S1, +S2 - GI/Abdominal Exam GI & Abdominal Exam: Normal Bowel Sounds Assessment and Plan (1) Anemia Assessment & Plan: chronic disease, renal disease GIANA per renal FOBT positive transfusion support PRN Status: Acute (2) Thrombocytopenia Assessment & Plan: secondary to sepsis no current DIC Status: Acute (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
--- NOTE | 2018-01-29 23:18 | CP.PCM.PN ---
Subjective - Date & Time of Evaluation Date of Evaluation: 01/28/18 Time of Evaluation: 13:00 - Subjective Subjective: Appears fatigued. Objective - Vital Signs/Intake and Output Vital Signs (last 24 hours): Temp Pulse Resp BP Pulse Ox 98 F 101 H 20 100/60 93 L 01/29/18 22:18 01/29/18 16:00 01/29/18 16:00 01/29/18 22:18 01/29/18 16:00 - Medications Medications: Current Medications Acetaminophen (Tylenol 325mg Tab) 650 mg PO Q4 PRN PRN Reason: Pain, Mild (1-3) Last Admin: 01/25/18 20:44 Dose: 650 mg Albuterol/Ipratropium (Duoneb 3 Mg/0.5 Mg (3 Ml) Ud) 3 ml INH RQ6 [facility] Last Admin: 01/29/18 21:19 Dose: 3 ml Ferrous Sulfate (Feosol) 325 mg PO BID [facility] Last Admin: 01/29/18 17:11 Dose: 325 mg Folic Acid (Folic Acid) 1 mg PO DAILY [facility] Last Admin: 01/29/18 11:25 Dose: 1 mg Gentamicin Sulfate 80 mg/ (Sodium Chloride) 102 mls @ 100 mls/hr IVPB TTS [facility] PRN Reason: Protocol Last Admin: 01/28/18 10:48 Dose: 100 mls/hr Meropenem 500 mg/ Sodium (Chloride) 100 mls @ 100 mls/hr IVPB Q12H [facility] PRN Reason: Protocol Last Admin: 01/29/18 22:00 Dose: 100 mls/hr Levothyroxine Sodium (Synthroid) 100 mcg PO DAILY@0630 [facility] Last Admin: 01/29/18 06:14 Dose: 100 mcg Magnesium Hydroxide (Milk Of Magnesia) 30 ml PO HS PRN PRN Reason: Constipation Methylprednisolone (Solu-Medrol) 40 mg IVP Q12H [facility] Oxycodone/Acetaminophen (Percocet 5/325 Mg Tab) 2 tab PO Q4H PRN PRN Reason: Pain, severe (8-10) Stop: 01/31/18 16:16 Last Admin: 01/29/18 20:10 Dose: 2 tab Fluticasone/Salmeterol (Advair Diskus 250/50) 1 puff INH RQ12 [facility] Last Admin: 01/29/18 21:18 Dose: Not Given Sucralfate (Carafate Oral Susp) 1 gm PO BID [facility] Last Admin: 01/29/18 17:11 Dose: 1 gm - Labs Labs: 01/29/18 07:35 01/28/18 06:30 PT 12.7 SECONDS (9.7-12.2) H 01/24/18 06:12 INR 1.2 01/24/18 06:12 APTT 28 SECONDS (21-34) 01/24/18 06:12 - Head Exam Head Exam: ATRAUMATIC - Eye Exam Eye Exam: Normal appearance - ENT Exam ENT Exam: Mucous Membranes Dry - Respiratory Exam Respiratory Exam: NORMAL BREATHING PATTERN - Cardiovascular Exam Cardiovascular Exam: +S1, +S2 - GI/Abdominal Exam GI & Abdominal Exam: Normal Bowel Sounds Assessment and Plan (1) Anemia Assessment & Plan: chronic disease, renal disease GIANA per renal FOBT positive transfusion support PRN Status: Acute (2) Thrombocytopenia Assessment & Plan: secondary to sepsis no current DIC Status: Acute (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
--- NOTE | 2018-01-29 23:20 | CP.PCM.PN ---
Subjective - Date & Time of Evaluation Date of Evaluation: 01/29/18 Time of Evaluation: 19:00 - Subjective Subjective: Appears comfortable s/p permacath change Objective - Vital Signs/Intake and Output Vital Signs (last 24 hours): Temp Pulse Resp BP Pulse Ox 98 F 101 H 20 100/60 93 L 01/29/18 22:18 01/29/18 16:00 01/29/18 16:00 01/29/18 22:18 01/29/18 16:00 - Medications Medications: Current Medications Acetaminophen (Tylenol 325mg Tab) 650 mg PO Q4 PRN PRN Reason: Pain, Mild (1-3) Last Admin: 01/25/18 20:44 Dose: 650 mg Albuterol/Ipratropium (Duoneb 3 Mg/0.5 Mg (3 Ml) Ud) 3 ml INH RQ6 [facility] Last Admin: 01/29/18 21:19 Dose: 3 ml Ferrous Sulfate (Feosol) 325 mg PO BID [facility] Last Admin: 01/29/18 17:11 Dose: 325 mg Folic Acid (Folic Acid) 1 mg PO DAILY [facility] Last Admin: 01/29/18 11:25 Dose: 1 mg Gentamicin Sulfate 80 mg/ (Sodium Chloride) 102 mls @ 100 mls/hr IVPB TTS [facility] PRN Reason: Protocol Last Admin: 01/28/18 10:48 Dose: 100 mls/hr Meropenem 500 mg/ Sodium (Chloride) 100 mls @ 100 mls/hr IVPB Q12H [facility] PRN Reason: Protocol Last Admin: 01/29/18 22:00 Dose: 100 mls/hr Levothyroxine Sodium (Synthroid) 100 mcg PO DAILY@0630 [facility] Last Admin: 01/29/18 06:14 Dose: 100 mcg Magnesium Hydroxide (Milk Of Magnesia) 30 ml PO HS PRN PRN Reason: Constipation Methylprednisolone (Solu-Medrol) 40 mg IVP Q12H [facility] Oxycodone/Acetaminophen (Percocet 5/325 Mg Tab) 2 tab PO Q4H PRN PRN Reason: Pain, severe (8-10) Stop: 01/31/18 16:16 Last Admin: 01/29/18 20:10 Dose: 2 tab Fluticasone/Salmeterol (Advair Diskus 250/50) 1 puff INH RQ12 [facility] Last Admin: 01/29/18 21:18 Dose: Not Given Sucralfate (Carafate Oral Susp) 1 gm PO BID [facility] Last Admin: 01/29/18 17:11 Dose: 1 gm - Labs Labs: 01/29/18 07:35 01/28/18 06:30 PT 12.7 SECONDS (9.7-12.2) H 01/24/18 06:12 INR 1.2 01/24/18 06:12 APTT 28 SECONDS (21-34) 01/24/18 06:12 - Head Exam Head Exam: ATRAUMATIC - Eye Exam Eye Exam: Normal appearance - ENT Exam ENT Exam: Mucous Membranes Dry - Respiratory Exam Respiratory Exam: NORMAL BREATHING PATTERN - Cardiovascular Exam Cardiovascular Exam: +S1, +S2 - GI/Abdominal Exam GI & Abdominal Exam: Normal Bowel Sounds Assessment and Plan (1) Anemia Assessment & Plan: chronic disease, renal disease GIANA per renal FOBT positive transfusion support PRN Status: Acute (2) 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
--- NOTE | 2018-01-30 00:01 | PN ---
DATE: 01/29/2018 LOCATION: 367, bed A. SUBJECTIVE: This is an 87-year-old male, seen and examined in rounds post dialysis without any reported significant clinical changes, post Permacath insertion. The patient had been on dialysis. No reported chest pain, palpitation, or evidence of active GI bleeding this morning. The entire chart is reviewed including but not limited to most recent lab and radiology study results, current and the previous medication list. Current and the previous medical events. Today's white blood cell is 11.2, hemoglobin 8.6, hematocrit 25.9 with normal platelet count. Rest of the lab results still pending. However, the patient still has low total protein and albumin with increased BUN and creatinine. PHYSICAL EXAMINATION: GENERAL: An 87-year-old male. VITAL SIGNS: Afebrile with pulse of 98, respiratory 20 to 22, blood pressure 106/62. HEENT: Showed pale dry oral mucoid membrane. Nonicteric sclerae. LUNGS: Few scattered crepitation. Decreased air entry at bases. HEART: Positive S1 and S2. ABDOMEN: Soft. Bowel sounds are present with mild abdominal distention and left lower quadrant area mild tenderness. No mass or organomegaly. No rebound tenderness or guarding. EXTREMITIES: Without significant clubbing, cyanosis, or edema. No new reported neurological deficits, sensory or motor. IMPRESSION: 1. Severe anemia with re-exacerbation of peptic ulcer disease. 2. To rule out lower gastrointestinal tract source of blood loss. 3. Multiple past medical history including mainly end-stage renal disease, hypertension, congestive heart failure with chronic obstructive pulmonary disease as well as recurrent bronchitis. 4. Known history of hypothyroidism SUGGESTIONS: 1. Continue current management. 2. The patient may need endoscopic evaluation of the lower GI tract when he is more stable clinically, and if there is subsequent drop of hemoglobin and hematocrit. Further recommendation to follow. Zarina Maddox MD
[2018-01-30] MEDS: Albuterol-Ipratrop 3 mg / 0.5 (3 ml) UD INH SCH ×4 (01:42→19:45)
[2018-01-30] MEDS: MethylPREDNISolone 40 mg Vial IVP SCH ×2 (06:11→17:04)
[2018-01-30] MEDS: Levothyroxine 100 MCG TAB PO SCH (06:15)
[2018-01-30] MEDS: Fluticasone-Salmeterol 250-50mcg Diskus INH SCH ×2 (07:22→19:45)
[2018-01-30 08:25] LABS: BASO % 0.1 % (0.0-2.0); EOS # 0.1 K/uL (0.0-0.7); HEMOGLOBIN 8.3 g/dL (12.0-18.0); LYMPH # 0.4 K/uL (1.0-4.3); LYMPH % 2.5 % (20.0-40.0); MEAN CELL VOLUME 91.1 fL (80.0-94.0); MEAN CORPUSCULAR HEMOGLOBIN 30.2 pg (27.0-31.0); MEAN CORPUSCULAR HGB CONC 33.2 g/dL (33.0-37.0); MEAN PLATELET VOLUME 8.3 fL (7.2-11.7); MONO # 0.5 K/uL (0.0-0.8); MONO % 3.8 % (0.0-10.0); NEUT # 13.2 K/uL (1.8-7.0); NEUT % 92.6 % (50.0-75.0); PLATELET COUNT 254 K/uL (130-400); RBC 2.73 Mil/uL (4.40-5.90); RED CELL DISTRIBUTION WIDTH 15.3 % (11.5-14.5); WHITE BLOOD COUNT 14.3 K/uL (4.8-10.8)
[2018-01-30 08:39] LABS: CALCIUM 7.8 mg/dl (8.6-10.4)
--- NOTE | 2018-01-30 09:54 | CP.PCM.PN ---
Subjective - Date & Time of Evaluation Date of Evaluation: 01/30/18 Time of Evaluation: 09:52 - Subjective Subjective: Seen at dialysis BP low- will limit UF to 1000ml Hg 8.3 post permcath change Alert , appears congested as before Objective - Vital Signs/Intake and Output Vital Signs (last 24 hours): Temp Pulse Resp BP Pulse Ox 97.9 F 104 H 20 94/52 L 95 01/30/18 07:46 01/30/18 09:00 01/30/18 07:46 01/30/18 09:00 01/30/18 07:46 Intake and Output: 01/30/18 01/30/18 06:59 18:59 Intake Total 150 Balance 150 - Medications Medications: Current Medications Acetaminophen (Tylenol 325mg Tab) 650 mg PO Q4 PRN PRN Reason: Pain, Mild (1-3) Last Admin: 01/25/18 20:44 Dose: 650 mg Albuterol/Ipratropium (Duoneb 3 Mg/0.5 Mg (3 Ml) Ud) 3 ml INH RQ6 [facility] Last Admin: 01/30/18 07:23 Dose: 3 ml Ferrous Sulfate (Feosol) 325 mg PO BID [facility] Last Admin: 01/29/18 17:11 Dose: 325 mg Folic Acid (Folic Acid) 1 mg PO DAILY [facility] Last Admin: 01/29/18 11:25 Dose: 1 mg Gentamicin Sulfate 80 mg/ (Sodium Chloride) 102 mls @ 100 mls/hr IVPB TTS [facility] PRN Reason: Protocol Last Admin: 01/28/18 10:48 Dose: 100 mls/hr Meropenem 500 mg/ Sodium (Chloride) 100 mls @ 100 mls/hr IVPB Q12H [facility] PRN Reason: Protocol Last Admin: 01/29/18 22:00 Dose: 100 mls/hr Levothyroxine Sodium (Synthroid) 100 mcg PO DAILY@0630 [facility] Last Admin: 01/30/18 06:15 Dose: 100 mcg Magnesium Hydroxide (Milk Of Magnesia) 30 ml PO HS PRN PRN Reason: Constipation Methylprednisolone (Solu-Medrol) 40 mg IVP Q12H [facility] Last Admin: 01/30/18 06:11 Dose: 40 mg Oxycodone/Acetaminophen (Percocet 5/325 Mg Tab) 2 tab PO Q4H PRN PRN Reason: Pain, severe (8-10) Stop: 01/31/18 16:16 Last Admin: 01/29/18 20:10 Dose: 2 tab Fluticasone/Salmeterol (Advair Diskus 250/50) 1 puff INH RQ12 [facility] Last Admin: 01/30/18 07:22 Dose: 1 puff Sucralfate (Carafate Oral Susp) 1 gm PO BID [facility] Last Admin: 01/29/18 17:11 Dose: 1 gm - Labs Labs: 01/30/18 08:13 01/30/18 08:13 PT 12.7 SECONDS (9.7-12.2) H 01/24/18 06:12 INR 1.2 01/24/18 06:12 APTT 28 SECONDS (21-34) 01/24/18 06:12 - Constitutional Appears: No Acute Distress, Confused, Cachectic, Chronically Ill - Head Exam Head Exam: ATRAUMATIC, NORMAL INSPECTION - Eye Exam Eye Exam: EOMI, Normal appearance - Neck Exam Neck Exam: Normal Inspection. absent: Tenderness - Respiratory Exam Respiratory Exam: Rhonchi, NORMAL BREATHING PATTERN - Cardiovascular Exam Cardiovascular Exam: REGULAR RHYTHM, +S1 - GI/Abdominal Exam GI & Abdominal Exam: Tenderness. absent: Soft - Extremities Exam Extremities Exam: Normal Inspection. absent: Tenderness - Neurological Exam Neurological Exam: Altered, CN II-XII Intact - Skin Skin Exam: Dry, Warm Assessment and Plan (1) ESRD (end stage renal disease) Status: Acute (2) Severe anemia Status: Acute (3) Acute CHF Status: Acute (4) Atrial fibrillation with rapid ventricular response Status: Chronic (5) Bacteremia due to Escherichia coli Status: Acute - Assessment and Plan (Free Text) Plan: Dilaysis now Limit UF 1000ml as BP low Transfuse 1 unit prbcs due to severe anemia IV ABs for bacteremia
[2018-01-30 10:23] LABS: BANDS 6 % (0-2); LYMPHOCYTE 2 % (20-40); METAMYELOCYTE 2 % (0-0); MONOCYTE 5 % (0-10); MYELOCYTE 1 % (0-0); NEUTROPHIL 84 % (50-75); PLATELET ESTIMATE NORMAL (NORMAL); TOTAL CELLS COUNTED 100
[2018-01-30 10:24] LABS: ANISOCYTOSIS SLIGHT; HYPOCHROMIC SLIGHT
[2018-01-30] MEDS: Sucralfate 1 gm/10 ml Oral Susp UD PO SCH ×2 (10:34→17:04)
[2018-01-30] MEDS: Meropenem 500 MG in Sodium Chloride 0.9% 100 ML IVPB SCH ×3 (10:35→21:52)
[2018-01-30 10:55] LABS: HEPATITIS B SURFACE AG Negative (NEGATIVE)
[2018-01-30 11:12] LABS: HEPATITIS C ANTIBODY NEGATIVE (NEGATIVE)
--- NOTE | 2018-01-30 15:21 | PN ---
DATE: 01/30/2018 LOCATION: 367, bed A. SUBJECTIVE: This is an 87-year-old male seen and examined in rounds without any significant clinical changes with intermittent period of being mildly restless with slight agitation, reported to have very poor appetite, incontinent of fecal material, but no reported active bleeding. No reported actual chest pain, palpitation or significant increase of shortness of breath. The entire chart is reviewed including but not limited to the most recent lab and radiology study results, current and the previous medication list, and today's lab showed hemoglobin of 8.3, hematocrit 24.9, leukocytosis of 14.3 with normal platelet count. BUN 57, creatinine 3.2, the patient is to be on hemodialysis with albumin 2.1, total protein 4.1. PHYSICAL EXAMINATION: General: An 87-year-old male. VITAL SIGNS: Afebrile with pulse of 100, respiratory rate 20 to 22, blood pressure of 104/56. HEENT: Showed pale, dry oral mucous membrane. Nonicteric sclerae. LUNGS: Few scattered crepitation. Decreased air entry at bases. HEART: Positive S1 and S2. ABDOMEN: Soft with slight generalized tenderness. No mass or organomegaly. No rebound tenderness or guarding. EXTREMITIES: Without significant clubbing, cyanosis or edema. NEUROLOGICAL: No reported new neurological deficits, sensory or motor. IMPRESSION: 1. Anemia, to rule out lower gastrointestinal tract source of blood loss versus anemia secondary to chronic disease. 2. Re-exacerbation of peptic ulcer disease. 3. To rule out occult gastrointestinal malignancy. 4. End-stage renal disease, on hemodialysis. 5. Multiple past medical history including but not limited to chronic obstructive pulmonary disease, recurrent bronchitis, hypertension with congestive heart failure. 6. Known history of hypothyroidism. 7. Respiratory alkalosis secondary to above. 8. Status post placement of left Perma-Cath. SUGGESTIONS: 1. Continue current management. 2. The patient will need colonoscopy when he is more stable clinically. 3. Complete stool workup to rule out an early episode of Pseudomembranous colitis. The patient has semi-soft, semi-watery bowel movement with leukocytosis. 4. Further recommendation to follow. Zarina Maddox MD [facility] # [id number]
--- NOTE | 2018-01-30 16:05 | CP.PCM.PN ---
Subjective - Date & Time of Evaluation Date of Evaluation: 01/30/18 Time of Evaluation: 07:45 - Subjective Subjective: clinically same Objective - Vital Signs/Intake and Output Vital Signs (last 24 hours): Temp Pulse Resp BP Pulse Ox 98.5 F 106 H 20 170/74 H 99 01/30/18 15:42 01/30/18 15:42 01/30/18 15:42 01/30/18 15:42 01/30/18 15:42 Intake and Output: 01/30/18 01/30/18 06:59 18:59 Intake Total 150 355 Balance 150 355 - Medications Medications: Current Medications Acetaminophen (Tylenol 325mg Tab) 650 mg PO Q4 PRN PRN Reason: Pain, Mild (1-3) Last Admin: 01/25/18 20:44 Dose: 650 mg Albuterol/Ipratropium (Duoneb 3 Mg/0.5 Mg (3 Ml) Ud) 3 ml INH RQ6 [facility] Last Admin: 01/30/18 13:22 Dose: Not Given Ferrous Sulfate (Feosol) 325 mg PO BID [facility] Last Admin: 01/30/18 10:34 Dose: Not Given Folic Acid (Folic Acid) 1 mg PO DAILY [facility] Last Admin: 01/30/18 10:35 Dose: Not Given Gentamicin Sulfate 80 mg/ (Sodium Chloride) 102 mls @ 100 mls/hr IVPB TTS [facility] PRN Reason: Protocol Last Admin: 01/30/18 14:47 Dose: 100 mls/hr Meropenem 500 mg/ Sodium (Chloride) 100 mls @ 100 mls/hr IVPB Q12H [facility] PRN Reason: Protocol Last Admin: 01/30/18 14:50 Dose: 100 mls/hr Levothyroxine Sodium (Synthroid) 100 mcg PO DAILY@0630 [facility] Last Admin: 01/30/18 06:15 Dose: 100 mcg Magnesium Hydroxide (Milk Of Magnesia) 30 ml PO HS PRN PRN Reason: Constipation Methylprednisolone (Solu-Medrol) 40 mg IVP Q12H [facility] Last Admin: 01/30/18 06:11 Dose: 40 mg Oxycodone/Acetaminophen (Percocet 5/325 Mg Tab) 2 tab PO Q4H PRN PRN Reason: Pain, severe (8-10) Stop: 01/31/18 16:16 Last Admin: 01/29/18 20:10 Dose: 2 tab Fluticasone/Salmeterol (Advair Diskus 250/50) 1 puff INH RQ12 [facility] Last Admin: 01/30/18 07:22 Dose: 1 puff Sucralfate (Carafate Oral Susp) 1 gm PO BID [facility] Last Admin: 01/30/18 10:34 Dose: Not Given - Labs Labs: 01/30/18 08:13 01/30/18 08:13 PT 12.7 SECONDS (9.7-12.2) H 01/24/18 06:12 INR 1.2 01/24/18 06:12 APTT 28 SECONDS (21-34) 01/24/18 06:12
--- NOTE | 2018-01-30 18:16 | CP.PCM.PN ---
Subjective - Date & Time of Evaluation Date of Evaluation: 01/30/18 Time of Evaluation: 14:30 - Subjective Subjective: dictated Objective - Vital Signs/Intake and Output Vital Signs (last 24 hours): Temp Pulse Resp BP Pulse Ox 98.5 F 106 H 20 170/74 H 99 01/30/18 15:42 01/30/18 15:42 01/30/18 15:42 01/30/18 15:42 01/30/18 15:42 Intake and Output: 01/30/18 01/30/18 06:59 18:59 Intake Total 150 355 Balance 150 355 - Medications Medications: Current Medications Acetaminophen (Tylenol 325mg Tab) 650 mg PO Q4 PRN PRN Reason: Pain, Mild (1-3) Last Admin: 01/25/18 20:44 Dose: 650 mg Albuterol/Ipratropium (Duoneb 3 Mg/0.5 Mg (3 Ml) Ud) 3 ml INH RQ6 [facility] Last Admin: 01/30/18 13:22 Dose: Not Given Ferrous Sulfate (Feosol) 325 mg PO BID [facility] Last Admin: 01/30/18 17:01 Dose: 325 mg Folic Acid (Folic Acid) 1 mg PO DAILY [facility] Last Admin: 01/30/18 10:35 Dose: Not Given Gentamicin Sulfate 80 mg/ (Sodium Chloride) 102 mls @ 100 mls/hr IVPB TTS [facility] PRN Reason: Protocol Last Admin: 01/30/18 14:47 Dose: 100 mls/hr Meropenem 500 mg/ Sodium (Chloride) 100 mls @ 100 mls/hr IVPB Q12H [facility] PRN Reason: Protocol Last Admin: 01/30/18 14:50 Dose: 100 mls/hr Levothyroxine Sodium (Synthroid) 100 mcg PO DAILY@0630 [facility] Last Admin: 01/30/18 06:15 Dose: 100 mcg Magnesium Hydroxide (Milk Of Magnesia) 30 ml PO HS PRN PRN Reason: Constipation Methylprednisolone (Solu-Medrol) 40 mg IVP Q12H [facility] Last Admin: 01/30/18 17:04 Dose: 40 mg Oxycodone/Acetaminophen (Percocet 5/325 Mg Tab) 2 tab PO Q4H PRN PRN Reason: Pain, severe (8-10) Stop: 01/31/18 16:16 Last Admin: 01/29/18 20:10 Dose: 2 tab Fluticasone/Salmeterol (Advair Diskus 250/50) 1 puff INH RQ12 [facility] Last Admin: 01/30/18 07:22 Dose: 1 puff Sucralfate (Carafate Oral Susp) 1 gm PO BID [facility] Last Admin: 01/30/18 17:04 Dose: 1 gm - Labs Labs: 01/30/18 08:13 01/30/18 08:13 PT 12.7 SECONDS (9.7-12.2) H 01/24/18 06:12 INR 1.2 01/24/18 06:12 APTT 28 SECONDS (21-34) 01/24/18 06:12 Assessment and Plan (1) E. coli septic shock Status: Acute (2) Thrombocytopenia Status: Acute (3) NOEMI (acute kidney injury) Status: Acute
--- NOTE | 2018-01-30 23:32 | PN ---
DATE: 01/30/2018 SUBJECTIVE: The patient was seen after a long time, and he has a new catheter on the left side of his chest wall now. PHYSICAL EXAMINATION: GENERAL: He is awake. He has dementia, unable to give any information. He has severe ecchymosis around his neck, all around his neck at this time, and he has a dressing on the other catheter site which was removed. VITAL SIGNS: T-max is 98.5, pulse is 106, blood pressure 170/74, and respirations are 20. HEENT: Head is atraumatic, normocephalic. LUNGS: Have bilateral rhonchi. Few crackles. HEART: S1, S2 are regular. ABDOMEN: He wants me to cover him, it seems. The abdomen is soft, and no guarding, no rigidity present. EXTREMITIES: Remain with bilateral dressings on lower extremities. LABORATORY DATA: Labs are noted. Labs show he has blood cultures positive from 01/22/2018 and 01/25/2018, so they have E. coli. I would like to see the leg wounds to see if that E. coli was also coming from there. Obviously, he did have catheter sepsis as there was localized redness at the site, and his labs are showing white count is 14.3 today, hemoglobin 8.3, hematocrit 24.9, platelet count is 254. White count has increased. BUN is 57, creatinine is 3.2. ASSESSMENT AND PLAN: He is a dialysis patient, and his Escherichia coli was extended-spectrum beta-lactamase positive with meropenem sensitive, and he is on meropenem every 12 hours, and he is on gentamicin also, 80. For now, I will also add vancomycin as he has these lower extremity lesions, ulcerations, and dressings which need to be evaluated further, and we will follow, and we will try to see them on my next visit. So, he came in with Escherichia coli septicemia, was hypotensive, in shock, and he is on antibiotics now and is recovering. Blood culture has been ordered for today. We will follow. Carmen Alejandro MD
[2018-01-31] MEDS: Albuterol-Ipratrop 3 mg / 0.5 (3 ml) UD INH SCH ×4 (02:49→20:05)
[2018-01-31] MEDS: MethylPREDNISolone 40 mg Vial IVP SCH ×2 (05:33→17:06)
[2018-01-31] MEDS: Levothyroxine 100 MCG TAB PO SCH (05:33)
[2018-01-31] MEDS: Fluticasone-Salmeterol 250-50mcg Diskus INH SCH ×2 (07:37→20:06)
--- NOTE | 2018-01-31 09:07 | CP.PCM.PN ---
Subjective - Date & Time of Evaluation Date of Evaluation: 01/30/18 Time of Evaluation: 13:00 - Subjective Subjective: Awake Objective - Vital Signs/Intake and Output Vital Signs (last 24 hours): Temp Pulse Resp BP Pulse Ox 98 F 92 H 20 97/61 L 99 01/31/18 07:43 01/31/18 07:43 01/31/18 07:43 01/31/18 07:43 01/30/18 15:42 Intake and Output: 01/31/18 01/31/18 06:59 18:59 Intake Total 300 Balance 300 - Medications Medications: Current Medications Acetaminophen (Tylenol 325mg Tab) 650 mg PO Q4 PRN PRN Reason: Pain, Mild (1-3) Last Admin: 01/25/18 20:44 Dose: 650 mg Albuterol/Ipratropium (Duoneb 3 Mg/0.5 Mg (3 Ml) Ud) 3 ml INH RQ6 [facility] Last Admin: 01/31/18 07:36 Dose: 3 ml Ferrous Sulfate (Feosol) 325 mg PO BID [facility] Last Admin: 01/30/18 17:01 Dose: 325 mg Folic Acid (Folic Acid) 1 mg PO DAILY [facility] Last Admin: 01/30/18 10:35 Dose: Not Given Gentamicin Sulfate 80 mg/ (Sodium Chloride) 102 mls @ 100 mls/hr IVPB TTS [facility] PRN Reason: Protocol Last Admin: 01/30/18 14:47 Dose: 100 mls/hr Meropenem 500 mg/ Sodium (Chloride) 100 mls @ 100 mls/hr IVPB Q12H [facility] PRN Reason: Protocol Last Admin: 01/30/18 21:52 Dose: 100 mls/hr Vancomycin HCl 500 mg/ Sodium (Chloride) 100 mls @ 100 mls/hr IVPB TTS [facility] PRN Reason: Protocol Levothyroxine Sodium (Synthroid) 100 mcg PO DAILY@0630 [facility] Last Admin: 01/31/18 05:33 Dose: 100 mcg Magnesium Hydroxide (Milk Of Magnesia) 30 ml PO HS PRN PRN Reason: Constipation Methylprednisolone (Solu-Medrol) 40 mg IVP Q12H [facility] Last Admin: 01/31/18 05:33 Dose: 40 mg Oxycodone/Acetaminophen (Percocet 5/325 Mg Tab) 2 tab PO Q4H PRN PRN Reason: Pain, severe (8-10) Stop: 01/31/18 16:16 Last Admin: 01/29/18 20:10 Dose: 2 tab Fluticasone/Salmeterol (Advair Diskus 250/50) 1 puff INH RQ12 [facility] Last Admin: 01/31/18 07:37 Dose: 1 puff Sucralfate (Carafate Oral Susp) 1 gm PO BID [facility] Last Admin: 01/30/18 17:04 Dose: 1 gm - Labs Labs: 01/30/18 08:13 01/30/18 08:13 PT 12.7 SECONDS (9.7-12.2) H 01/24/18 06:12 INR 1.2 01/24/18 06:12 APTT 28 SECONDS (21-34) 01/24/18 06:12 - Head Exam Head Exam: ATRAUMATIC - Eye Exam Eye Exam: Normal appearance - ENT Exam ENT Exam: Mucous Membranes Dry - Respiratory Exam Respiratory Exam: Decreased Breath Sounds - Cardiovascular Exam Cardiovascular Exam: +S1, +S2 - GI/Abdominal Exam GI & Abdominal Exam: Normal Bowel Sounds Assessment and Plan (1) Anemia Assessment & Plan: chronic disease, renal disease GIANA per renal FOBT positive transfusion support PRN Status: Acute (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
--- NOTE | 2018-01-31 09:24 | CP.PCM.PN ---
Subjective - Date & Time of Evaluation Date of Evaluation: 01/31/18 Time of Evaluation: :20 - Subjective Subjective: s/p dialysis 01/30 appears same alert, congested as before Received 1 unit prbcs blood tx Objective - Vital Signs/Intake and Output Vital Signs (last 24 hours): Temp Pulse Resp BP Pulse Ox 98 F 92 H 20 97/61 L 99 01/31/18 07:43 01/31/18 07:43 01/31/18 07:43 01/31/18 07:43 01/30/18 15:42 Intake and Output: 01/31/18 01/31/18 06:59 18:59 Intake Total 300 Balance 300 - Medications Medications: Current Medications Acetaminophen (Tylenol 325mg Tab) 650 mg PO Q4 PRN PRN Reason: Pain, Mild (1-3) Last Admin: 01/25/18 20:44 Dose: 650 mg Albuterol/Ipratropium (Duoneb 3 Mg/0.5 Mg (3 Ml) Ud) 3 ml INH RQ6 [facility] Last Admin: 01/31/18 07:36 Dose: 3 ml Ferrous Sulfate (Feosol) 325 mg PO BID [facility] Last Admin: 01/30/18 17:01 Dose: 325 mg Folic Acid (Folic Acid) 1 mg PO DAILY [facility] Last Admin: 01/30/18 10:35 Dose: Not Given Gentamicin Sulfate 80 mg/ (Sodium Chloride) 102 mls @ 100 mls/hr IVPB TTS [facility] PRN Reason: Protocol Last Admin: 01/30/18 14:47 Dose: 100 mls/hr Meropenem 500 mg/ Sodium (Chloride) 100 mls @ 100 mls/hr IVPB Q12H [facility] PRN Reason: Protocol Last Admin: 01/30/18 21:52 Dose: 100 mls/hr Vancomycin HCl 500 mg/ Sodium (Chloride) 100 mls @ 100 mls/hr IVPB TTS [facility] PRN Reason: Protocol Levothyroxine Sodium (Synthroid) 100 mcg PO DAILY@0630 [facility] Last Admin: 01/31/18 05:33 Dose: 100 mcg Magnesium Hydroxide (Milk Of Magnesia) 30 ml PO HS PRN PRN Reason: Constipation Methylprednisolone (Solu-Medrol) 40 mg IVP Q12H [facility] Last Admin: 01/31/18 05:33 Dose: 40 mg Oxycodone/Acetaminophen (Percocet 5/325 Mg Tab) 2 tab PO Q4H PRN PRN Reason: Pain, severe (8-10) Stop: 01/31/18 16:16 Last Admin: 01/29/18 20:10 Dose: 2 tab Fluticasone/Salmeterol (Advair Diskus 250/50) 1 puff INH RQ12 [facility] Last Admin: 01/31/18 07:37 Dose: 1 puff Sucralfate (Carafate Oral Susp) 1 gm PO BID [facility] Last Admin: 01/30/18 17:04 Dose: 1 gm - Labs Labs: 01/30/18 08:13 01/30/18 08:13 PT 12.7 SECONDS (9.7-12.2) H 01/24/18 06:12 INR 1.2 01/24/18 06:12 APTT 28 SECONDS (21-34) 01/24/18 06:12 - Constitutional Appears: No Acute Distress, Chronically Ill - Head Exam Head Exam: ATRAUMATIC, NORMAL INSPECTION - Eye Exam Eye Exam: EOMI, Normal appearance - Neck Exam Neck Exam: Normal Inspection. absent: Tenderness - Respiratory Exam Respiratory Exam: Rhonchi, NORMAL BREATHING PATTERN - Cardiovascular Exam Cardiovascular Exam: Irregular Rhythm, +S1 - GI/Abdominal Exam GI & Abdominal Exam: Soft. absent: Tenderness - Extremities Exam Extremities Exam: Normal Inspection. absent: Tenderness - Neurological Exam Neurological Exam: Awake, CN II-XII Intact - Skin Skin Exam: Dry, Warm Assessment and Plan (1) ESRD (end stage renal disease) Status: Acute (2) Severe anemia Status: Acute (3) Acute CHF Status: Acute (4) Atrial fibrillation with rapid ventricular response Status: Chronic (5) Bacteremia due to Escherichia coli Status: Acute - Assessment and Plan (Free Text) Plan: Dialysis in AM, TTS Increase UF as pt remains mildly congested recheck cbc
[2018-01-31] MEDS: Sucralfate 1 gm/10 ml Oral Susp UD PO SCH ×2 (10:14→17:06)
[2018-01-31] MEDS: Meropenem 500 MG in Sodium Chloride 0.9% 100 ML IVPB SCH ×2 (10:14→21:52)
--- NOTE | 2018-01-31 12:14 | CP.PCM.PN ---
Subjective - Date & Time of Evaluation Date of Evaluation: 01/31/18 Time of Evaluation: 07:15 - Subjective Subjective: clinically same Objective - Vital Signs/Intake and Output Vital Signs (last 24 hours): Temp Pulse Resp BP Pulse Ox 98 F 92 H 20 97/61 L 99 01/31/18 07:43 01/31/18 07:43 01/31/18 07:43 01/31/18 07:43 01/30/18 15:42 Intake and Output: 01/31/18 01/31/18 06:59 18:59 Intake Total 300 Balance 300 - Medications Medications: Current Medications Acetaminophen (Tylenol 325mg Tab) 650 mg PO Q4 PRN PRN Reason: Pain, Mild (1-3) Last Admin: 01/25/18 20:44 Dose: 650 mg Albuterol/Ipratropium (Duoneb 3 Mg/0.5 Mg (3 Ml) Ud) 3 ml INH RQ6 [facility] Last Admin: 01/31/18 07:36 Dose: 3 ml Ferrous Sulfate (Feosol) 325 mg PO BID [facility] Last Admin: 01/31/18 10:14 Dose: 325 mg Folic Acid (Folic Acid) 1 mg PO DAILY [facility] Last Admin: 01/31/18 10:14 Dose: 1 mg Gentamicin Sulfate 80 mg/ (Sodium Chloride) 102 mls @ 100 mls/hr IVPB TTS [facility] PRN Reason: Protocol Last Admin: 01/30/18 14:47 Dose: 100 mls/hr Meropenem 500 mg/ Sodium (Chloride) 100 mls @ 100 mls/hr IVPB Q12H [facility] PRN Reason: Protocol Last Admin: 01/31/18 10:14 Dose: 100 mls/hr Vancomycin HCl 500 mg/ Sodium (Chloride) 100 mls @ 100 mls/hr IVPB TTS [facility] PRN Reason: Protocol Levothyroxine Sodium (Synthroid) 100 mcg PO DAILY@0630 [facility] Last Admin: 01/31/18 05:33 Dose: 100 mcg Magnesium Hydroxide (Milk Of Magnesia) 30 ml PO HS PRN PRN Reason: Constipation Methylprednisolone (Solu-Medrol) 40 mg IVP Q12H [facility] Last Admin: 01/31/18 05:33 Dose: 40 mg Oxycodone/Acetaminophen (Percocet 5/325 Mg Tab) 2 tab PO Q4H PRN PRN Reason: Pain, severe (8-10) Stop: 01/31/18 16:16 Last Admin: 01/29/18 20:10 Dose: 2 tab Fluticasone/Salmeterol (Advair Diskus 250/50) 1 puff INH RQ12 [facility] Last Admin: 01/31/18 07:37 Dose: 1 puff Sucralfate (Carafate Oral Susp) 1 gm PO BID [facility] Last Admin: 01/31/18 10:14 Dose: 1 gm - Labs Labs: 01/30/18 08:13 01/30/18 08:13 PT 12.7 SECONDS (9.7-12.2) H 01/24/18 06:12 INR 1.2 01/24/18 06:12 APTT 28 SECONDS (21-34) 01/24/18 06:12
--- NOTE | 2018-01-31 16:13 | CP.PCM.PN ---
Subjective - Date & Time of Evaluation Date of Evaluation: 01/31/18 Time of Evaluation: 15:00 - Subjective Subjective: dictated Objective - Vital Signs/Intake and Output Vital Signs (last 24 hours): Temp Pulse Resp BP Pulse Ox 98 F 92 H 20 97/61 L 99 01/31/18 07:43 01/31/18 07:43 01/31/18 07:43 01/31/18 07:43 01/30/18 15:42 Intake and Output: 01/31/18 01/31/18 06:59 18:59 Intake Total 300 350 Balance 300 350 - Medications Medications: Current Medications Acetaminophen (Tylenol 325mg Tab) 650 mg PO Q4 PRN PRN Reason: Pain, Mild (1-3) Last Admin: 01/25/18 20:44 Dose: 650 mg Albuterol/Ipratropium (Duoneb 3 Mg/0.5 Mg (3 Ml) Ud) 3 ml INH RQ6 [facility] Last Admin: 01/31/18 13:08 Dose: 3 ml Ferrous Sulfate (Feosol) 325 mg PO BID [facility] Last Admin: 01/31/18 10:14 Dose: 325 mg Folic Acid (Folic Acid) 1 mg PO DAILY [facility] Last Admin: 01/31/18 10:14 Dose: 1 mg Gentamicin Sulfate 80 mg/ (Sodium Chloride) 102 mls @ 100 mls/hr IVPB TTS [facility] PRN Reason: Protocol Last Admin: 01/30/18 14:47 Dose: 100 mls/hr Meropenem 500 mg/ Sodium (Chloride) 100 mls @ 100 mls/hr IVPB Q12H [facility] PRN Reason: Protocol Last Admin: 01/31/18 10:14 Dose: 100 mls/hr Vancomycin HCl 500 mg/ Sodium (Chloride) 100 mls @ 100 mls/hr IVPB TTS [facility] PRN Reason: Protocol Levothyroxine Sodium (Synthroid) 100 mcg PO DAILY@0630 [facility] Last Admin: 01/31/18 05:33 Dose: 100 mcg Magnesium Hydroxide (Milk Of Magnesia) 30 ml PO HS PRN PRN Reason: Constipation Methylprednisolone (Solu-Medrol) 40 mg IVP Q12H [facility] Last Admin: 01/31/18 05:33 Dose: 40 mg Oxycodone/Acetaminophen (Percocet 5/325 Mg Tab) 2 tab PO Q4H PRN PRN Reason: Pain, severe (8-10) Stop: 01/31/18 16:16 Last Admin: 01/29/18 20:10 Dose: 2 tab Fluticasone/Salmeterol (Advair Diskus 250/50) 1 puff INH RQ12 [facility] Last Admin: 01/31/18 07:37 Dose: 1 puff Sucralfate (Carafate Oral Susp) 1 gm PO BID [facility] Last Admin: 01/31/18 10:14 Dose: 1 gm - Labs Labs: 01/30/18 08:13 01/30/18 08:13 PT 12.7 SECONDS (9.7-12.2) H 01/24/18 06:12 INR 1.2 01/24/18 06:12 APTT 28 SECONDS (21-34) 01/24/18 06:12 Assessment and Plan (1) E. coli septic shock Status: Acute (2) Thrombocytopenia Status: Acute (3) NOEMI (acute kidney injury) Status: Acute
--- NOTE | 2018-01-31 21:49 | PN ---
DATE: 01/31/2018 LOCATION: 367, bed A. SUBJECTIVE: This is an 87-year-old male, seen and examined in rounds without significant clinical changes or reported active bleeding. The patient is post upper endoscopy with biopsy, appeared to be somewhat more alert and oriented, post hemodialysis as well as blood transfusion due to his anemia. No reported actual chest pain, palpitation, or significant increase of shortness of breath. The entire chart is reviewed including but not limited to the most recent lab and radiology study results, current and the previous medication lists, current and the previous medical events. LABORATORY DATA: Today's lab showed leukocytosis of 14.3, hemoglobin 8.3, hematocrit 24.9 with normal platelet count. CO2 of 32 with BUN of 57, creatinine 3.2, calcium 7.8. The patient had low total protein and albumin. PHYSICAL EXAMINATION: GENERAL: An 87-year-old male. VITAL SIGNS: Afebrile with pulse of 96, respiratory rate 20 to 22, blood pressure 110/54. HEENT: Showed pale, dry oral mucous membrane. Nonicteric sclerae. LUNGS: Few scattered crepitation. Decreased air entry at bases. HEART: Positive S1 and S2. ABDOMEN: Soft with mild generalized tenderness. No mass or organomegaly. No rebound tenderness or guarding. NEUROLOGIC: No reported new neurological deficits, sensory or motor. IMPRESSION: 1. Escherichia coli septicemia by recent history. 2. Re-exacerbation of peptic ulcer disease. 3. End-stage renal disease, on hemodialysis. 4. Anemia secondary to above versus lower gastrointestinal blood loss. The possibility of occult lower gastrointestinal malignancy should be ruled in or out. 5. Multiple past medical history including chronic obstructive pulmonary disease, recurrent bronchitis, hypertension with congestive heart failure. 6. Known history of hypothyroidism. 7. Status post left PermCath insertion. SUGGESTIONS: 1. Continue current management. 2. Blood transfusion as needed to keep hemoglobin around 10 g percent. 3. The patient will need endoscopic evaluation of the lower GI tract when he is more stable clinically if there is subsequent drop of hemoglobin and hematocrit. Zarina Maddox MD
--- NOTE | 2018-02-01 00:16 | PN ---
DATE: 01/31/2018 SUBJECTIVE: This patient was seen today. He was awake but he was very congested. He is a dialysis patient, so I could not do much for him. He received blood. He is due for dialysis tomorrow, but he has a catheter on the left side chest wall. PHYSICAL EXAMINATION: VITAL SIGNS: T-max is 98.3. LUNGS: Bilateral crackles heard. HEART: S1 and S2, tachycardic. ABDOMEN: Soft, nontender. No guarding, no rigidity present. EXTREMITIES: Had bilateral dressings with nonadhesive dressings. NEUROLOGIC: He appeared really ill. LABORATORY DATA: White count is 14.3, hemoglobin 8.3, hematocrit 24.9, platelet count is 254. This is from yesterday. There are no new labs today. White count is 14.3. I do not see another lab from today. Sodium is 140, potassium 3.7, chlorides of 102, creatinine remains high at 3.2. ASSESSMENT AND PLAN: He is a dialysis patient. His blood cultures are negative, 24 hours. He had Escherichia coli septicemia probably from the catheter. It has been removed and changed. He remains congested. Plan is hopefully with dialysis, he will come around. He has bilateral lower extremity ulcerations. I have left him on vancomycin. He is on meropenem and gentamicin at this time. Once the blood cultures are negative 48 hours most probably on Saturday, I can get him off the gentamicin. To continue present treatment at this time. Prognosis remains guarded. Carmen Alejandro MD
[2018-02-01] MEDS: Albuterol-Ipratrop 3 mg / 0.5 (3 ml) UD INH SCH ×4 (02:17→19:49)
[2018-02-01] MEDS: Levothyroxine 100 MCG TAB PO SCH (06:25)
[2018-02-01] MEDS: MethylPREDNISolone 40 mg Vial IVP SCH ×2 (06:26→19:03)
[2018-02-01 07:21] LABS: MEAN CELL VOLUME 91.4 fL (80.0-94.0); MEAN CORPUSCULAR HEMOGLOBIN 30.8 pg (27.0-31.0); MEAN CORPUSCULAR HGB CONC 33.7 g/dL (33.0-37.0); MEAN PLATELET VOLUME 8.6 fL (7.2-11.7); RBC 2.91 Mil/uL (4.40-5.90)
[2018-02-01 07:22] LABS: WHITE BLOOD COUNT 22.7 K/uL (4.8-10.8)
[2018-02-01] MEDS: Fluticasone-Salmeterol 250-50mcg Diskus INH SCH ×2 (07:39→22:20)
[2018-02-01 08:00] LABS: ALB/GLOB RATIO 1.1 (1.0-2.1); ALBUMIN 2.2 g/dL (3.5-5.0)
--- NOTE | 2018-02-01 08:43 | CP.PCM.PN ---
Subjective - Date & Time of Evaluation Date of Evaluation: 02/01/18 Time of Evaluation: 08:40 - Subjective Subjective: afebrile bp better today comfortable in bed appears confused States no to all questions in ROS Objective - Vital Signs/Intake and Output Vital Signs (last 24 hours): Temp Pulse Resp BP Pulse Ox 97.6 F 105 H 20 129/67 99 02/01/18 08:27 02/01/18 08:27 02/01/18 08:27 02/01/18 08:27 02/01/18 08:27 Intake and Output: 02/01/18 02/01/18 06:59 18:59 Intake Total 350 Balance 350 - Medications Medications: Current Medications Acetaminophen (Tylenol 325mg Tab) 650 mg PO Q4 PRN PRN Reason: Pain, Mild (1-3) Last Admin: 01/25/18 20:44 Dose: 650 mg Albuterol/Ipratropium (Duoneb 3 Mg/0.5 Mg (3 Ml) Ud) 3 ml INH RQ6 [facility] Last Admin: 02/01/18 07:39 Dose: 3 ml Ferrous Sulfate (Feosol) 325 mg PO BID [facility] Last Admin: 01/31/18 17:05 Dose: 325 mg Folic Acid (Folic Acid) 1 mg PO DAILY [facility] Last Admin: 01/31/18 10:14 Dose: 1 mg Gentamicin Sulfate 80 mg/ (Sodium Chloride) 102 mls @ 100 mls/hr IVPB TTS [facility] PRN Reason: Protocol Last Admin: 01/30/18 14:47 Dose: 100 mls/hr Meropenem 500 mg/ Sodium (Chloride) 100 mls @ 100 mls/hr IVPB Q12H [facility] PRN Reason: Protocol Last Admin: 01/31/18 21:52 Dose: 100 mls/hr Vancomycin HCl 500 mg/ Sodium (Chloride) 100 mls @ 100 mls/hr IVPB TTS [facility] PRN Reason: Protocol Levothyroxine Sodium (Synthroid) 100 mcg PO DAILY@0630 [facility] Last Admin: 02/01/18 06:25 Dose: 100 mcg Magnesium Hydroxide (Milk Of Magnesia) 30 ml PO HS PRN PRN Reason: Constipation Methylprednisolone (Solu-Medrol) 40 mg IVP Q12H [facility] Last Admin: 02/01/18 06:26 Dose: 40 mg Fluticasone/Salmeterol (Advair Diskus 250/50) 1 puff INH RQ12 [facility] Last Admin: 02/01/18 07:39 Dose: Not Given Sucralfate (Carafate Oral Susp) 1 gm PO BID [facility] Last Admin: 01/31/18 17:06 Dose: 1 gm - Labs Labs: 02/01/18 07:00 02/01/18 07:00 PT 12.7 SECONDS (9.7-12.2) H 01/24/18 06:12 INR 1.2 01/24/18 06:12 APTT 28 SECONDS (21-34) 01/24/18 06:12 - Constitutional Appears: No Acute Distress - Respiratory Exam Additional comments: coarse sounds prolonged inspiration and expiration ocasional rhonchi - Cardiovascular Exam Cardiovascular Exam: REGULAR RHYTHM - GI/Abdominal Exam GI & Abdominal Exam: Soft. absent: Distended, Tenderness - Extremities Exam Extremities Exam: absent: Calf Tenderness - Neurological Exam Neurological Exam: Awake - Skin Skin Exam: Dry, Warm Assessment and Plan (1) ESRD (end stage renal disease) Status: Acute (2) COPD (chronic obstructive pulmonary disease) with acute bronchitis Status: Acute - Assessment and Plan (Free Text) Plan: schedule dialysis today with ultrafiltration
[2018-02-01] MEDS: Sucralfate 1 gm/10 ml Oral Susp UD PO SCH ×2 (09:59→17:50)
[2018-02-01] MEDS: Meropenem 500 MG in Sodium Chloride 0.9% 100 ML IVPB SCH ×2 (10:00→21:45)
--- NOTE | 2018-02-01 11:12 | PN ---
DATE: 02/01/2018 LOCATION: 367, bed A. SUBJECTIVE: This is an 87 years old male seen and examined in rounds without significant clinical changes or reported active bleeding without reported actual chest pain, palpitation, chills or fever recently, appeared to be awake, alert with a complaint of congestion despite his hemodialysis. The entire chart is reviewed including but not limited to the most recent lab and radiology study results, current and the previous medication list, current and the previous medical events. Case discussed with the staff at length. Today's lab showed leukocytosis of 22.7, hemoglobin 9, hematocrit 26.6 with blood glucose level 109. Rest of the lab results still pending and the patient still have low albumin and low total protein as well as low calcium. PHYSICAL EXAMINATION: GENERAL: An 87 years old male. VITAL SIGNS: Afebrile with pulse of 104, respiratory 20-22, blood pressure 106/64. HEENT: Showed pale dry oral mucous membrane. Nonicteric sclerae. LUNGS: Few scattered crepitation. Decreased air entry at bases. HEART: Positive S1 and S2. ABDOMEN: Soft with mild generalized tenderness. No mass or organomegaly. No rebound tenderness or guarding. EXTREMITIES: With lower extremity edematous changes. No clubbing or cyanosis. NEUROLOGIC: No reported new neurological deficits, sensory or motor. No new reported focal deficits. IMPRESSION: 1. Reexacerbation of peptic ulcer disease. The patient is status post upper endoscopy recently. 2. End-stage renal disease on hemodialysis. 3. Escherichia coli septicemia, by recent history, on antibiotics. 4. Multiple past medical history including mainly chronic obstructive pulmonary disease, bronchitis, hypertension, congestive heart failure, hypothyroidism. 5. Anemia most likely secondary to gastrointestinal blood loss versus chronic disease; however, no evidence of active bleeding in the meantime from the gastrointestinal tract. 6. Status post Portacath insertion, the patient has leukocytosis and the possibility of infected site of the Portacath should be ruled in or out. SUGGESTIONS: 1. Continue current management. 2. Repeat stool for occult blood. 3. Follow up cancer markers including CEA. 4. Under any more stable condition, the patient may need colonoscopy. Further recommendation to follow. Zarina Maddox MD [facility] # [id number]
--- NOTE | 2018-02-01 18:25 | CP.PCM.PN ---
Subjective - Date & Time of Evaluation Date of Evaluation: 02/01/18 Time of Evaluation: 15:00 - Subjective Subjective: dictated Objective - Vital Signs/Intake and Output Vital Signs (last 24 hours): Temp Pulse Resp BP Pulse Ox 98.6 F 104 H 18 109/56 L 95 02/01/18 16:00 02/01/18 16:00 02/01/18 16:00 02/01/18 16:00 02/01/18 16:00 Intake and Output: 02/01/18 02/01/18 06:59 18:59 Intake Total 350 Balance 350 - Medications Medications: Current Medications Acetaminophen (Tylenol 325mg Tab) 650 mg PO Q4 PRN PRN Reason: Pain, Mild (1-3) Last Admin: 01/25/18 20:44 Dose: 650 mg Albuterol/Ipratropium (Duoneb 3 Mg/0.5 Mg (3 Ml) Ud) 3 ml INH RQ6 [facility] Last Admin: 02/01/18 13:03 Dose: 3 ml Ferrous Sulfate (Feosol) 325 mg PO BID [facility] Last Admin: 02/01/18 17:50 Dose: 325 mg Folic Acid (Folic Acid) 1 mg PO DAILY [facility] Last Admin: 02/01/18 09:59 Dose: Not Given Meropenem 500 mg/ Sodium (Chloride) 100 mls @ 100 mls/hr IVPB Q12H [facility] PRN Reason: Protocol Last Admin: 02/01/18 10:00 Dose: Not Given Vancomycin HCl 500 mg/ Sodium (Chloride) 100 mls @ 100 mls/hr IVPB TTS [facility] PRN Reason: Protocol Last Admin: 02/01/18 14:49 Dose: 100 mls/hr Levothyroxine Sodium (Synthroid) 100 mcg PO DAILY@0630 [facility] Last Admin: 02/01/18 06:25 Dose: 100 mcg Magnesium Hydroxide (Milk Of Magnesia) 30 ml PO HS PRN PRN Reason: Constipation Methylprednisolone (Solu-Medrol) 40 mg IVP Q12H [facility] Last Admin: 02/01/18 06:26 Dose: 40 mg Fluticasone/Salmeterol (Advair Diskus 250/50) 1 puff INH RQ12 [facility] Last Admin: 02/01/18 07:39 Dose: Not Given Sucralfate (Carafate Oral Susp) 1 gm PO BID [facility] Last Admin: 02/01/18 17:50 Dose: 1 gm - Labs Labs: 02/01/18 07:00 02/01/18 07:00 PT 12.7 SECONDS (9.7-12.2) H 01/24/18 06:12 INR 1.2 01/24/18 06:12 APTT 28 SECONDS (21-34) 01/24/18 06:12 Assessment and Plan (1) E. coli septic shock Status: Acute (2) Thrombocytopenia Status: Acute (3) NOEMI (acute kidney injury) Status: Acute
--- NOTE | 2018-02-01 20:11 | CP.PCM.PN ---
Subjective - Date & Time of Evaluation Date of Evaluation: 02/01/18 Time of Evaluation: 07:15 - Subjective Subjective: clinically same Objective - Vital Signs/Intake and Output Vital Signs (last 24 hours): Temp Pulse Resp BP Pulse Ox 98.6 F 104 H 18 109/56 L 95 02/01/18 16:00 02/01/18 16:00 02/01/18 16:00 02/01/18 16:00 02/01/18 16:00 - Medications Medications: Current Medications Acetaminophen (Tylenol 325mg Tab) 650 mg PO Q4 PRN PRN Reason: Pain, Mild (1-3) Last Admin: 01/25/18 20:44 Dose: 650 mg Albuterol/Ipratropium (Duoneb 3 Mg/0.5 Mg (3 Ml) Ud) 3 ml INH RQ6 [facility] Last Admin: 02/01/18 19:49 Dose: 3 ml Ferrous Sulfate (Feosol) 325 mg PO BID [facility] Last Admin: 02/01/18 17:50 Dose: 325 mg Folic Acid (Folic Acid) 1 mg PO DAILY [facility] Last Admin: 02/01/18 09:59 Dose: Not Given Meropenem 500 mg/ Sodium (Chloride) 100 mls @ 100 mls/hr IVPB Q12H [facility] PRN Reason: Protocol Last Admin: 02/01/18 10:00 Dose: Not Given Vancomycin HCl 500 mg/ Sodium (Chloride) 100 mls @ 100 mls/hr IVPB TTS [facility] PRN Reason: Protocol Last Admin: 02/01/18 14:49 Dose: 100 mls/hr Amikacin Sulfate 500 mg/ (Sodium Chloride) 102 mls @ 100 mls/hr IV ONCE ONE PRN Reason: Protocol Stop: 02/01/18 20:31 Last Admin: 02/01/18 19:03 Dose: 100 mls/hr Levothyroxine Sodium (Synthroid) 100 mcg PO DAILY@0630 [facility] Last Admin: 02/01/18 06:25 Dose: 100 mcg Magnesium Hydroxide (Milk Of Magnesia) 30 ml PO HS PRN PRN Reason: Constipation Methylprednisolone (Solu-Medrol) 40 mg IVP Q12H [facility] Last Admin: 02/01/18 19:03 Dose: 40 mg Fluticasone/Salmeterol (Advair Diskus 250/50) 1 puff INH RQ12 [facility] Last Admin: 02/01/18 07:39 Dose: Not Given Sucralfate (Carafate Oral Susp) 1 gm PO BID [facility] Last Admin: 02/01/18 17:50 Dose: 1 gm - Labs Labs: 02/01/18 07:00 02/01/18 07:00 PT 12.7 SECONDS (9.7-12.2) H 01/24/18 06:12 INR 1.2 01/24/18 06:12 APTT 28 SECONDS (21-34) 01/24/18 06:12
--- NOTE | 2018-02-01 23:16 | PN ---
DATE: 02/01/2018 SUBJECTIVE: The patient was seen today. He was very awake. He speaks Greek, speaks some Vietnamese. He said he did not wanted to eat and he wanted to go back home. He did had dialysis done. He was less dyspneic today. PHYSICAL EXAMINATION: VITAL SIGNS: T-max was 98.6, heart rate of 104, blood pressure 109/56 and respirations were 20. HEENT: Head is atraumatic and normocephalic. GENERAL: He had left side the new catheter and he was comfortable. LUNGS: Had bilateral rhonchi. HEART: S1, S2 are regular. ABDOMEN: Soft, nontender. No guarding, no rigidity present. EXTREMITIES: Have bilateral leg ulcerations. I asked him if he feels pain, he denied now. LABORATORY DATA: Labs are noted. Labs show white count has increased to 22.7 today, hemoglobin is 9, hematocrit is 26.8, platelet count is 265, so his white count is going up. His blood cultures have been negative. He did had E. coli and this E. Coli was meropenem as well as and ESBL positive. So white count is going up. His albuterol is there, ferrous sulfate, folic acid was not given and he is on levothyroxine, magnesium but they did not give the meropenem, I am not sure why they did not give that, maybe he was on dialysis that time, he is on vancomycin 500 and we had discontinued the gentamicin. ASSESSMENT AND PLAN: So, his white count is going up. He is on antibiotics at this time. We will find out why he did not get the meropenem and also order a chest x-ray for him for today and look into it as he may have been aspirating and will leave the vancomycin on and leave the meropenem and give him one dose of other antibiotic, I guess I could give him one dose of amikacin today. I tried to look over his leg wounds, but he avoided it and there appeared to be superficial ulcerations. We will follow. Carmen Alejandro MD
[2018-02-02 01:06] LABS: ABG ALLEN TEST POS; ARTERIAL BLOOD GAS HCO3 29.7 mmol/L (21-28); ARTERIAL BLOOD GAS HEMOGLOBIN 8.7 g/dL (11.7-17.4); ARTERIAL BLOOD GAS O2 SAT 100.1 % (95-98); ARTERIAL BLOOD GAS PCO2 56 mm/Hg (35-45); ARTERIAL BLOOD GAS PH 7.37 (7.35-7.45); ARTERIAL BLOOD GAS PO2 232 mm/Hg (80-100); ARTERIAL BLOOD GAS TCO2 34.1 mmol/L (22-28)
[2018-02-02] MEDS: Albuterol-Ipratrop 3 mg / 0.5 (3 ml) UD INH SCH ×3 (01:34→21:42)
--- NOTE | 2018-02-02 04:00 | PCM.RRT ---
INFORMATION SYSTEMS PROJECT MANAGER Nurses Assessment - Situation Date: 02/02/18 Time INFORMATION SYSTEMS PROJECT MANAGER was called: 00:52 INFORMATION SYSTEMS PROJECT MANAGER Responder Arrival Time:: 01:00 INFORMATION SYSTEMS PROJECT MANAGER Location:: Med/Oncology Room Number: 367 INFORMATION SYSTEMS PROJECT MANAGER Reason for Call: Hypotension, Respiratory Distress, O2 Saturation below 90% , Not Responding to Urgent Treatment INFORMATION SYSTEMS PROJECT MANAGER Called By: RN - IV IV Inserted during INFORMATION SYSTEMS PROJECT MANAGER?: No New IV Insertion Tolerance: Fair - Respiratory INFORMATION SYSTEMS PROJECT MANAGER Delivery Method: Nasal Cannula @L/min, Venturi Mask @%, Non Rebreather @% Received Nebulizer Treatments: No Was the Patient Ventilated with Bag/Mask 100% O2?: (nasal cannula 3lpm, non rebreather 100%, Venturi mask 8lpm 40%) Secretions Suctioned?: No Was the Patient Intubated?: No Was the Patient Placed on a Ventilator?: No - Ventilator Settings SAO2 %: 93 - Diagnostic Test Ordered EKG: No Chest X-Ray: Yes (done) CT Scan: No - Stat Labs Ordered INFORMATION SYSTEMS PROJECT MANAGER Stat Labs Ordered: ABG CPR started during INFORMATION SYSTEMS PROJECT MANAGER?: No - Vital Signs Vital Signs: Rapid Response Vital Sign Blood Pressure 114/60 Pulse Rate 114 Respiratory Rate 20 Temperature 98.3 F Oxygen Saturation 84 - Sebas Coma Scale Coma Scale Eye Opening: Spontaneous Coma Scale Motor: Obeys Commands Movement Coma Scale Verbal: Confused/able to answer Coma Scale Total: 14 - Sepsis Screen Part 1 Sepsis Screen Part 1: Hypotensive - Time INFORMATION SYSTEMS PROJECT MANAGER Ended Time INFORMATION SYSTEMS PROJECT MANAGER Ended: 01:34 - Vital Signs at end of INFORMATION SYSTEMS PROJECT MANAGER Vital Signs at end of INFORMATION SYSTEMS PROJECT MANAGER: Rapid Response End Vital Sign Blood Pressure 105/61 Pulse Rate 113 Respiratory Rate 20 Temperature 98.3 F O2 Sat by Pulse Oximetry 97 - Recommendations Notifications: Attending Physician, Family or Designated Caregiver - Respiratory Oxygen Delivery Method: Nasal Cannula @L/min, Venturi Mask @%, Non Rebreather @% - Constitutional Appears: Agitated, Chronically Ill - Head Head Exam: ATRAUMATIC, NORMAL INSPECTION, NORMOCEPHALIC - Eyes Eye Exam: EOMI, Normal appearance - Respiratory Exam Respiratory Exam: NORMAL BREATHING PATTERN - Cardiovascular Exam Cardiovascular Exam: REGULAR RHYTHM, +S1, +S2 - GI/Abdominal Exam GI & Abdominal Exam: Soft, Normal Bowel Sounds - Neurological Exam Neurological Exam: Alert, Awake, Oriented x3 Plan - Assessment of Findings&Treatment Plan House doctor note INFORMATION SYSTEMS PROJECT MANAGER called by nurse for patient at 12:52AM. Patient's heart rate elevated in 120 -130s, saturating down to 84% on 3L NC. NRB mask was given. CXR obtained demonstrates increased consolidation of RLL comparied to previous image. ABG done with NRB in place showed PO2 of 232. Venturi mask 40% given, saturation increased to 97%. Patient in no acute distress, communicating appropriately and responding to questions being asked. To be transferred to telemetry, per Dr. Zamudio for continued monitoring of HR in setting of worsening hypoxia.
[2018-02-02] MEDS: MethylPREDNISolone 40 mg Vial IVP SCH ×2 (05:07→17:44)
[2018-02-02] MEDS: Levothyroxine 100 MCG TAB PO SCH (07:00)
[2018-02-02] MEDS: Fluticasone-Salmeterol 250-50mcg Diskus INH SCH ×2 (07:10→21:42)
--- NOTE | 2018-02-02 08:23 | RAD ---
Date of service: 02/01/2018 HISTORY: INCREASING WBC COMPARISON: 02/01/2018 FINDINGS: Left-sided dialysis catheter terminates in the right atrium. LUNGS: There is persistent severe pulmonary venous congestion and interstitial pulmonary edema. Persistent airspace disease in the right lower lobe. PLEURA: There is a new pleural-based opacity in the left mid lateral chest wall. No change in small right pleural effusion, no pneumothorax apparent. CARDIOVASCULAR: Normal. OSSEOUS STRUCTURES: No significant abnormalities. VISUALIZED UPPER ABDOMEN: Normal. OTHER FINDINGS: None. IMPRESSION: No change in severe pulmonary venous congestion and mild interstitial pulmonary edema. Persistent airspace disease in the right lower lobe which may represent atelectasis or pneumonia. Redemonstration of small right pleural effusion. New suspected loculated fluid along the left lateral chest wall.
[2018-02-02 08:28] LABS: BASO % 0.2 % (0.0-2.0); HEMOGLOBIN 8.3 g/dL (12.0-18.0); LYMPH # 0.3 K/uL (1.0-4.3); LYMPH % 1.1 % (20.0-40.0); MEAN CELL VOLUME 92.9 fL (80.0-94.0); MEAN CORPUSCULAR HEMOGLOBIN 30.3 pg (27.0-31.0); MEAN CORPUSCULAR HGB CONC 32.6 g/dL (33.0-37.0); MEAN PLATELET VOLUME 8.7 fL (7.2-11.7); MONO # 0.9 K/uL (0.0-0.8); MONO % 3.6 % (0.0-10.0); NEUT # 24.3 K/uL (1.8-7.0); NEUT % 95.1 % (50.0-75.0); PLATELET COUNT 280 K/uL (130-400); RBC 2.74 Mil/uL (4.40-5.90); RED CELL DISTRIBUTION WIDTH 15.2 % (11.5-14.5); WHITE BLOOD COUNT 25.5 K/uL (4.8-10.8)
--- NOTE | 2018-02-02 08:33 | RAD ---
Date of service: 02/02/2018 HISTORY: desaturation COMPARISON: 02/01/2018 FINDINGS: Left-sided dialysis catheter terminates in the right atrium. The left PICC line terminates at the cavoatrial junction. LUNGS: There is redemonstration of moderate pulmonary venous congestion. There is persistent airspace disease in the right lower lobe. PLEURA: Small right pleural effusion, no pneumothorax apparent. CARDIOVASCULAR: Normal. OSSEOUS STRUCTURES: No significant abnormalities. VISUALIZED UPPER ABDOMEN: Normal. OTHER FINDINGS: None. IMPRESSION: No change in right lower lobe airspace disease and small right pleural effusion. No other significant interval change.
[2018-02-02] MEDS: Meropenem 500 MG in Sodium Chloride 0.9% 100 ML IVPB SCH ×2 (09:38→21:55)
[2018-02-02] MEDS: Sucralfate 1 gm/10 ml Oral Susp UD PO SCH ×2 (09:39→17:07)
[2018-02-02 10:37] LABS: BANDS 6 % (0-2); LYMPHOCYTE 1 % (20-40); METAMYELOCYTE 1 % (0-0); MONOCYTE 2 % (0-10); MYELOCYTE 1 % (0-0); NEUTROPHIL 89 % (50-75); PLATELET ESTIMATE NORMAL (NORMAL); TOTAL CELLS COUNTED 100
[2018-02-02 10:38] LABS: ANISOCYTOSIS SLIGHT; LARGE PLATELETS PRESENT
--- NOTE | 2018-02-02 11:17 | CP.PCM.PN ---
Subjective - Date & Time of Evaluation Date of Evaluation: 02/02/18 Time of Evaluation: 09:45 - Subjective Subjective: 87-year-old male status post rapid response and was transferred to /telemetry for increasing shortness of breath, hypoxemia and hypotension. 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 Review of his medical records shows a hgb of 4 and the patient is s/p 3U PRBC. He is s/p EGD with no evidence of active bleeding. Objective - Vital Signs/Intake and Output Vital Signs (last 24 hours): Temp Pulse Resp BP Pulse Ox 98 F 130 H 24 96/63 L 95 02/02/18 05:30 02/02/18 05:42 02/02/18 05:30 02/02/18 05:30 02/02/18 05:30 Intake and Output: 02/02/18 02/02/18 06:59 18:59 Intake Total 380 Balance 380 - Medications Medications: Current Medications Acetaminophen (Tylenol 325mg Tab) 650 mg PO Q4 PRN PRN Reason: Pain, Mild (1-3) Last Admin: 01/25/18 20:44 Dose: 650 mg Albuterol/Ipratropium (Duoneb 3 Mg/0.5 Mg (3 Ml) Ud) 3 ml INH RQ6 [facility] Last Admin: 02/02/18 01:34 Dose: 3 ml Ferrous Sulfate (Feosol) 325 mg PO BID [facility] Last Admin: 02/02/18 09:39 Dose: 325 mg Folic Acid (Folic Acid) 1 mg PO DAILY [facility] Last Admin: 02/02/18 09:40 Dose: 1 mg Meropenem 500 mg/ Sodium (Chloride) 100 mls @ 100 mls/hr IVPB Q12H [facility]RE[facility] PRN Reason: Protocol Last Admin: 02/02/18 09:38 Dose: 100 mls/hr Vancomycin HCl 500 mg/ Sodium (Chloride) 100 mls @ 100 mls/hr IVPB TTS ANDREA PRN Reason: Protocol Last Admin: 02/01/18 14:49 Dose: 100 mls/hr Levothyroxine Sodium (Synthroid) 100 mcg PO DAILY@0630 [facility] Last Admin: 02/02/18 07:00 Dose: Not Given Magnesium Hydroxide (Milk Of Magnesia) 30 ml PO HS PRN PRN Reason: Constipation Methylprednisolone (Solu-Medrol) 40 mg IVP Q12H [facility] Last Admin: 02/02/18 05:07 Dose: 40 mg Montelukast Sodium (Singulair) 10 mg PO DAILY [facility] Last Admin: 02/02/18 09:39 Dose: 10 mg Fluticasone/Salmeterol (Advair Diskus 250/50) 1 puff INH RQ12 [facility] Last Admin: 02/01/18 22:20 Dose: Not Given Sucralfate (Carafate Oral Susp) 1 gm PO BID [facility] Last Admin: 02/02/18 09:39 Dose: 1 gm - Labs Labs: 02/02/18 08:08 02/01/18 07:00 PT 12.7 SECONDS (9.7-12.2) H 01/24/18 06:12 INR 1.2 01/24/18 06:12 APTT 28 SECONDS (21-34) 01/24/18 06:12 - Head Exam Head Exam: ATRAUMATIC, NORMOCEPHALIC - ENT Exam ENT Exam: Mucous Membranes Moist - Respiratory Exam Respiratory Exam: Decreased Breath Sounds - GI/Abdominal Exam GI & Abdominal Exam: Soft, Normal Bowel Sounds Assessment and Plan (1) Respiratory insufficiency Assessment & Plan: continue IV antibiotics Nebulizer treatment and steroids CAT scan of the chest Hemodialysis Status: Acute (2) Pneumonia Status: Acute (3) ESRD (end stage renal disease) Status: Acute (4) Pleural effusion Status: Acute
--- NOTE | 2018-02-02 12:12 | CP.PCM.PN ---
Subjective - Date & Time of Evaluation Date of Evaluation: 02/02/18 Time of Evaluation: 12:00 - Subjective Subjective: patient was transferred to ICU. had hypoxia and associated tachycardia. Objective - Vital Signs/Intake and Output Vital Signs (last 24 hours): Temp Pulse Resp BP Pulse Ox 98 F 130 H 24 96/63 L 95 02/02/18 05:30 02/02/18 05:42 02/02/18 05:30 02/02/18 05:30 02/02/18 05:30 Intake and Output: 02/02/18 02/02/18 06:59 18:59 Intake Total 380 Balance 380 - Medications Medications: Current Medications Acetaminophen (Tylenol 325mg Tab) 650 mg PO Q4 PRN PRN Reason: Pain, Mild (1-3) Last Admin: 01/25/18 20:44 Dose: 650 mg Albuterol/Ipratropium (Duoneb 3 Mg/0.5 Mg (3 Ml) Ud) 3 ml INH RQ6 [facility] Last Admin: 02/02/18 07:10 Dose: 3 ml Ferrous Sulfate (Feosol) 325 mg PO BID [facility] Last Admin: 02/02/18 09:39 Dose: 325 mg Folic Acid (Folic Acid) 1 mg PO DAILY [facility] Last Admin: 02/02/18 09:40 Dose: 1 mg Meropenem 500 mg/ Sodium (Chloride) 100 mls @ 100 mls/hr IVPB Q12H [facility] PRN Reason: Protocol Last Admin: 02/02/18 09:38 Dose: 100 mls/hr Vancomycin HCl 500 mg/ Sodium (Chloride) 100 mls @ 100 mls/hr IVPB TTS [facility]REA PRN Reason: Protocol Last Admin: 02/01/18 14:49 Dose: 100 mls/hr Levothyroxine Sodium (Synthroid) 100 mcg PO DAILY@0630 [facility] Last Admin: 02/02/18 07:00 Dose: Not Given Magnesium Hydroxide (Milk Of Magnesia) 30 ml PO HS PRN PRN Reason: Constipation Methylprednisolone (Solu-Medrol) 40 mg IVP Q12H [facility] Last Admin: 02/02/18 05:07 Dose: 40 mg Montelukast Sodium (Singulair) 10 mg PO DAILY [facility] Last Admin: 02/02/18 09:39 Dose: 10 mg Fluticasone/Salmeterol (Advair Diskus 250/50) 1 puff INH RQ12 [facility] Last Admin: 02/02/18 07:10 Dose: Not Given Sucralfate (Carafate Oral Susp) 1 gm PO BID [facility] Last Admin: 02/02/18 09:39 Dose: 1 gm - Labs Labs: 02/02/18 08:08 02/01/18 07:00 PT 12.7 SECONDS (9.7-12.2) H 01/24/18 06:12 INR 1.2 01/24/18 06:12 APTT 28 SECONDS (21-34) 01/24/18 06:12 - Constitutional Appears: Chronically Ill - Head Exam Head Exam: NORMAL INSPECTION - Eye Exam Eye Exam: Normal appearance - ENT Exam ENT Exam: Mucous Membranes Moist - Neck Exam Neck Exam: absent: Lymphadenopathy - Respiratory Exam Respiratory Exam: Decreased Breath Sounds - Cardiovascular Exam Cardiovascular Exam: Tachycardia - GI/Abdominal Exam GI & Abdominal Exam: Normal Bowel Sounds - Rectal Exam Rectal Exam: Deferred - Extremities Exam Extremities Exam: Pedal Edema - Back Exam Back Exam: NORMAL INSPECTION - Skin Skin Exam: Normal Color Assessment and Plan (1) Afib Assessment & Plan: tachycardic due to hypoxia and pneumonia. will monitor. continue antibitoics. explained mechanism of tachycardia to the family. Status: Acute
--- NOTE | 2018-02-02 14:12 | PN ---
DATE: 02/02/2018 LOCATION: ICU 16. SUBJECTIVE: This is an 87-year-old male, seen and examined in the emergency room, on VentiMask, appeared to be somewhat lethargic with semi-alert. Reported to have on cardiac sonographer atrial fibrillation with less oral intake. The entire chart is reviewed including but not limited to the most recent lab and radiology study result, current and the previous medication list, current and the previous medical events. The patient had a complaint of chest pain previously and reported to have period of semi-confusion and disorientation. Most recent lab results today showed leukocytosis of 25.5, hemoglobin 8.3, hematocrit 25.5 with normal platelet count, but abnormal ABGs with blood glucose level of 110. Previously reported to have low total protein and low albumin. Most recently done chest x-ray today, official report is still pending; however, yesterday chest x-ray showed pulmonary congestion with mild pulmonary edema and pneumonia. PHYSICAL EXAMINATION: GENERAL: An 87-year-old male. VITAL SIGNS: Afebrile with pulse of 126, respiratory rate 20 to 22, blood pressure 100/60. HEENT: Showed pale, dry oral mucous membrane. Nonicteric sclerae. LUNGS: Few scattered crepitation. Decreased air entry at bases. HEART: S1 and S2 with increased rate. ABDOMEN: Soft with mild generalized tenderness. No mass or organomegaly. No rebound tenderness or guarding. EXTREMITIES: Lower extremities, mild edematous changes. NEUROLOGICAL: No reported new neurological deficit, sensory or motor despite the patient had been somewhat semi-confused and more disoriented, he is status post rapid respond to call. IMPRESSION: 1. Cardiac arrhythmias. 2. Chronic obstructive pulmonary disease with pneumonia. 3. Congestive heart failure. 4. Anemia, most likely secondary to gastrointestinal blood loss, upper versus lower. 5. Re-exacerbation of peptic ulcer disease. 6. End-stage renal disease, on hemodialysis. 7. Multiple past medical history including but not limited to hypertension, chronic obstructive pulmonary disease with bronchitis and pneumonia as well as congestive heart failure. 8. Status post Port-A-Cath insertion. 9. Respiratory insufficiency secondary to above. SUGGESTIONS: 1. Continue current management. 2. Blood transfusion as needed to keep hemoglobin around 10 g percent. 3. Anti-reflux measure. 4. No aggressive GI workup in the meantime until the patient is more stable clinically. Otherwise, on the close observation to follow. 5. Peripheral hyperalimentation in the meantime and coordination with the nephrology construction safety consultant on the case. Zarina Maddox MD
--- NOTE | 2018-02-02 14:28 | CP.CCUPN ---
<Thomas Garcia - Last Filed: 02/02/18 14:40> CCU Subjective - Physician Review Subjective (Free Text): Critical care progress note: Pt seen and examined at bedside. No acute events overnight. Patient is telemetry patient however he developed increasingly more short of breath, hypoxemic, and was placed on ventimask, currently saturating in the 90's. Pt will be upgraded to the ICU level of care. 12 Point ROS limited 2/2 dementia CCU Objective - Vital Signs / Intake & Output Vital Signs (Last 4 hours): Vital Signs Temp Pulse Resp BP Pulse Ox 02/02/18 13:55 98.3 F 99 H 20 106/62 96 02/02/18 11:00 98.2 F 110 H 24 106/60 96 Intake and Output (Last 8hrs): Intake & Output 02/01/18 02/02/18 02/02/18 22:59 06:59 14:59 Intake Total 320 60 Balance 320 60 Weight 122 lb 9.232 oz Intake: Intake, IV Amount 200 left arm picc 200 Oral 120 60 Other: # Voids Urine, Voided 1 # Bowel Movements 1 - Physical Exam Head: Positive for: Atraumatic, Normocephalic Pupils: Positive for: PERRL Extroacular Muscles: Positive for: EOMI Mouth: Positive for: Moist Mucous Membranes Neck: Positive for: Normal Range of Motion. Negative for: JVD Respiratory/Chest: Positive for: Respiratory Distress, Rales. Negative for: Wheezes Cardiovascular: Positive for: Regular Rate and Rhythm, Normal S1, S2 Abdomen: Positive for: Normal Bowel Sounds. Negative for: Tenderness, Distention Upper Extremity: Negative for: Cyanosis, Edema Lower Extremity: Negative for: Edema, CALF TENDERNESS Neurological: Positive for: CN II-XII Intact Skin: Positive for: Warm, Dry Psychiatric: Positive for: Oriented x 3 - Medications Active Medications: Active Medications Generic Name Dose Route Start Last Admin Trade Name Freq PRN Reason Stop Dose Admin Acetaminophen 650 mg 01/22/18 20:09 01/25/18 20:44 Tylenol 325mg Tab PO 650 mg Q4 PRN Administration Pain, Mild (1-3) Albuterol/Ipratropium 3 ml 01/23/18 00:00 02/02/18 07:10 Duoneb 3 Mg/0.5 Mg (3 Ml) Ud INH 3 ml RQ6 ANASTASIYA Administration Ferrous Sulfate 325 mg 01/23/18 10:00 02/02/18 09:39 Feosol PO 325 mg BID ANASTASIYA Administration Folic Acid 1 mg 01/23/18 10:00 02/02/18 09:40 Folic Acid PO 1 mg DAILY ANASTASIYA Administration Meropenem 500 mg/ Sodium 100 mls @ 100 mls/hr 01/25/18 10:00 02/02/18 09:38 Chloride IVPB 100 mls/hr Q12H ANASTASIYA Administration Protocol Vancomycin HCl 500 mg/ Sodium 100 mls @ 100 mls/hr 02/01/18 10:00 02/01/18 14 :49 Chloride IVPB 100 mls/hr TTS ANASTASIYA Administration Protocol Levothyroxine Sodium 100 mcg 01/23/18 06:30 02/02/18 07:00 Synthroid PO Not Given DAILY@0630 [facility] Magnesium Hydroxide 30 ml 01/22/18 20:09 Milk Of Magnesia PO HS PRN Constipation Methylprednisolone 40 mg 01/30/18 06:00 02/02/18 05:07 Solu-Medrol IVP 40 mg Q12H ANASTASIYA Administration Montelukast Sodium 10 mg 02/02/18 10:00 02/02/18 09:39 Singulair PO 10 mg DAILY ANASTASIYA Administration Fluticasone/Salmeterol 1 puff 01/23/18 08:00 02/02/18 07:10 Advair Diskus 250/50 INH Not Given RQ12 [facility] Sucralfate 1 gm 01/23/18 10:00 02/02/18 09:39 Carafate Oral Susp PO 1 gm BID ANASTASIYA Administration - Patient Studies Lab Studies: Microbiology Studies 01/30/18 13:52 Blood Culture - Preliminary Blood-During Dialysis NO GROWTH AFTER 3 DAYS 01/30/18 13:52 Blood Culture - Preliminary Blood-During Dialysis NO GROWTH AFTER 3 DAYS Lab Studies 02/02/18 02/02/18 02/02/18 Range/Units 08:08 01:00 00:53 WBC 25.5 H (4.8-10.8) K/uL RBC 2.74 L (4.40-5.90) Mil/uL Hgb 8.3 L (12.0-18.0) g/dL Hct 25.5 L (35.0-51.0) % MCV 92.9 (80.0-94.0) fL MCH 30.3 (27.0-31.0) pg MCHC 32.6 L (33.0-37.0) g/dL RDW 15.2 H (11.5-14.5) % Plt Count 280 (130-400) K/uL MPV 8.7 (7.2-11.7) fL Neut % (Auto) 95.1 H (50.0-75.0) % Lymph % (Auto) 1.1 L (20.0-40.0) % [place] % (Auto) 3.6 (0.0-10.0) % Eos % (Auto) 0.0 (0.0-4.0) % Baso % (Auto) 0.2 (0.0-2.0) % Neut # (Auto) 24.3 H (1.8-7.0) K/uL Lymph # (Auto) 0.3 L (1.0-4.3) K/uL [place] # (Auto) 0.9 H (0.0-0.8) K/uL Eos # (Auto) 0.0 (0.0-0.7) K/uL Baso # (Auto) 0.0 (0.0-0.2) K/uL Neutrophils % (Manual) 89 H (50-75) % Band Neutrophils % 6 H (0-2) % Lymphocytes % (Manual) 1 L (20-40) % Monocytes % (Manual) 2 (0-10) % Metamyelocytes % 1 H (0-0) % Myelocytes % 1 H (0-0) % Platelet Estimate Normal (NORMAL) Large Platelets Present Basophilic Stippling Slight Anisocytosis (manual) Slight Puncture Site Rr pCO2 56 H (35-45) mm/Hg pO2 232 H (80-100) mm/Hg HCO3 29.7 H (21-28) mmol/L ABG pH 7.37 (7.35-7.45) ABG Total CO2 34.1 H (22-28) mmol/L ABG O2 Saturation 100.1 H (95-98) % ABG Base Excess 6.1 H (-2.0-3.0) mmol/L ABG Hemoglobin 8.7 L (11.7-17.4) g/dL ABG Carboxyhemoglobin 3.5 H (0.5-1.5) % POC ABG HHb (Measured) -0.1 L (0.0-5.0) % ABG Methemoglobin 1.7 (0.0-3.0) % Alber Test Pos A-a O2 Difference 411.0 mm/Hg Respiratory Index 1.8 Hgb O2 Saturation 94.9 L (95.0-98.0) % FiO2 100.0 % POC Glucose (mg/dL) 110 (65-110) mg/dL 02/01/18 02/01/18 Range/Units 21:17 16:40 WBC (4.8-10.8) K/uL RBC (4.40-5.90) Mil/uL Hgb (12.0-18.0) g/dL Hct (35.0-51.0) % MCV (80.0-94.0) fL MCH (27.0-31.0) pg MCHC (33.0-37.0) g/dL RDW (11.5-14.5) % Plt Count (130-400) K/uL MPV (7.2-11.7) fL Neut % (Auto) (50.0-75.0) % Lymph % (Auto) (20.0-40.0) % [place] % (Auto) (0.0-10.0) % Eos % (Auto) (0.0-4.0) % Baso % (Auto) (0.0-2.0) % Neut # (Auto) (1.8-7.0) K/uL Lymph # (Auto) (1.0-4.3) K/uL [place] # (Auto) (0.0-0.8) K/uL Eos # (Auto) (0.0-0.7) K/uL Baso # (Auto) (0.0-0.2) K/uL Neutrophils % (Manual) (50-75) % Band Neutrophils % (0-2) % Lymphocytes % (Manual) (20-40) % Monocytes % (Manual) (0-10) % Metamyelocytes % (0-0) % Myelocytes % (0-0) % Platelet Estimate (NORMAL) Large Platelets Basophilic Stippling Anisocytosis (manual) Puncture Site pCO2 (35-45) mm/Hg pO2 (80-100) mm/Hg HCO3 (21-28) mmol/L ABG pH (7.35-7.45) ABG Total CO2 (22-28) mmol/L ABG O2 Saturation (95-98) % ABG Base Excess (-2.0-3.0) mmol/L ABG Hemoglobin (11.7-17.4) g/dL ABG Carboxyhemoglobin (0.5-1.5) % POC ABG HHb (Measured) (0.0-5.0) % ABG Methemoglobin (0.0-3.0) % Alber Test A-a O2 Difference mm/Hg Respiratory Index Hgb O2 Saturation (95.0-98.0) % FiO2 % POC Glucose (mg/dL) 104 121 H (65-110) mg/dL Laboratory Results - last 24 hr 02/01/18 02/01/18 02/02/18 16:40 21:17 00:53 WBC RBC Hgb Hct MCV MCH MCHC RDW Plt Count MPV Neut % (Auto) Lymph % (Auto) [place] % (Auto) Eos % (Auto) Baso % (Auto) Neut # (Auto) Lymph # (Auto) [place] # (Auto) Eos # (Auto) Baso # (Auto) Neutrophils % (Manual) Band Neutrophils % Lymphocytes % (Manual) Monocytes % (Manual) Metamyelocytes % Myelocytes % Platelet Estimate Large Platelets Basophilic Stippling Anisocytosis (manual) Puncture Site pCO2 pO2 HCO3 ABG pH ABG Total CO2 ABG O2 Saturation ABG Base Excess ABG Hemoglobin ABG Carboxyhemoglobin POC ABG HHb (Measured) ABG Methemoglobin Alber Test A-a O2 Difference Respiratory Index Hgb O2 Saturation FiO2 POC Glucose (mg/dL) 121 H 104 110 02/02/18 02/02/18 01:00 08:08 WBC 25.5 H RBC 2.74 L Hgb 8.3 L Hct 25.5 L MCV 92.9 MCH 30.3 MCHC 32.6 L RDW 15.2 H Plt Count 280 MPV 8.7 Neut % (Auto) 95.1 H Lymph % (Auto) 1.1 L [place] % (Auto) 3.6 Eos % (Auto) 0.0 Baso % (Auto) 0.2 Neut # (Auto) 24.3 H Lymph # (Auto) 0.3 L [place] # (Auto) 0.9 H Eos # (Auto) 0.0 Baso # (Auto) 0.0 Neutrophils % (Manual) 89 H Band Neutrophils % 6 H Lymphocytes % (Manual) 1 L Monocytes % (Manual) 2 Metamyelocytes % 1 H Myelocytes % 1 H Platelet Estimate Normal Large Platelets Present Basophilic Stippling Slight Anisocytosis (manual) Slight Puncture Site Rr pCO2 56 H pO2 232 H HCO3 29.7 H ABG pH 7.37 ABG Total CO2 34.1 H ABG O2 Saturation 100.1 H ABG Base Excess 6.1 H ABG Hemoglobin 8.7 L ABG Carboxyhemoglobin 3.5 H POC ABG HHb (Measured) -0.1 L ABG Methemoglobin 1.7 Alber Test Pos A-a O2 Difference 411.0 Respiratory Index 1.8 Hgb O2 Saturation 94.9 L FiO2 100.0 POC Glucose (mg/dL) Critical Care Progress Note - Nutrition Nutrition: Nutrition Category Date Time Status Pureed [Dysphagia/Modified Consistency Diet] [DIET] Diets 01/30/18 Dinner Active Assessment/Plan - Assessment and Plan (Free Text) Assessment: 87 year old male with PMHx of ESRD (Saturday/Saturday), HTN, Atrial Fibrillation on Eliquis, CHF, COPD/Bronchitis, Gastritis, Hypothyroidism, Osteoporosis, Anemia, Pneumonia Arthritis, 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 Patient found to have Hb of 4 and hypotensive 78/30. s/p 3 units PRBC and EGD showed no active bleeding. Patient upgraded from tele to ICU level of care for increased shortness of breath, and hypoxemic concerning for possible aspiration. Neuro: - Altered - F/u palliative consult - pain control Pulm: - maintain SPO2 > 90% - Currently on ventimask - Chest x-ray consistent with right lower lung infiltrate and pleural effusion - Duonebs anastasiya - Cont duonebs, singuilar, and Adavair - Cont solumedrol 40mg Q 12 CV: - Hemodynamically stable - Maintain MAP> 65 - Cardiology consult - patient is not a candidate for cardiac cath at this time GI: - NPO - Cont carafate - GI consulted for recs - Cont to monitor H/H Heme: - Monitor H/H - Cont Feosol - Heme onc consulted for recs Endo: - maintain euglycemia - Cont levothyroxine daily Renal: - Patient received dialysis yesterday - Nephrology consulted for recs - Monitor I and O - Replete electrolytes as needed ID: - wbc 25.5 - Cont broad spectrum antibiotics with elizabet and vanco - Bacteremic with ecoli, recent blood cx neg thus far - ID consulted for recs - F/u septic work up GI/DVT ppx Case and plan was reviewed and discussed in detail with Dr Narayan. <Alan Narayan P - Last Filed: 02/02/18 18:17> CCU Objective - Vital Signs / Intake & Output Intake and Output (Last 8hrs): Intake & Output 02/02/18 02/02/18 02/02/18 06:59 14:59 22:59 Intake Total 60 Balance 60 Weight 122 lb 9.232 oz Intake: Oral 60 Other: # Bowel Movements 1 - Medications Active Medications: Active Medications Generic Name Dose Route Start Last Admin Trade Name Freq PRN Reason Stop Dose Admin Acetaminophen 650 mg 01/22/18 20:09 01/25/18 20:44 Tylenol 325mg Tab PO 650 mg Q4 PRN Administration Pain, Mild (1-3) Albuterol/Ipratropium 3 ml 01/23/18 00:00 02/02/18 07:10 Duoneb 3 Mg/0.5 Mg (3 Ml) Ud INH 3 ml RQ6 ANASTASIYA Administration Ferrous Sulfate 325 mg 01/23/18 10:00 02/02/18 17:07 Feosol PO Not Given BID ANASTASIYA Folic Acid 1 mg 01/23/18 10:00 02/02/18 09:40 Folic Acid PO 1 mg DAILY ANASTASIYA Administration Meropenem 500 mg/ Sodium 100 mls @ 100 mls/hr 01/25/18 10:00 02/02/18 09:38 Chloride IVPB 100 mls/hr Q12H ANASTASIYA Administration Protocol Vancomycin HCl 500 mg/ Sodium 100 mls @ 100 mls/hr 02/01/18 10:00 02/01/18 14 :49 Chloride IVPB 100 mls/hr TTS ANASTASIYA Administration Protocol Levothyroxine Sodium 100 mcg 01/23/18 06:30 02/02/18 07:00 Synthroid PO Not Given DAILY@0630 ANASTASIYA Magnesium Hydroxide 30 ml 01/22/18 20:09 Milk Of Magnesia PO HS PRN Constipation Methylprednisolone 40 mg 01/30/18 06:00 02/02/18 17:44 Solu-Medrol IVP 40 mg Q12H ANASTASIYA Administration Montelukast Sodium 10 mg 02/02/18 10:00 02/02/18 09:39 Singulair PO 10 mg DAILY ANASTASIYA Administration Fluticasone/Salmeterol 1 puff 01/23/18 08:00 02/02/18 07:10 Advair Diskus 250/50 INH Not Given RQ12 ANASTASIYA Sucralfate 1 gm 01/23/18 10:00 02/02/18 17:07 Carafate Oral Susp PO Not Given BID ANASTASIYA - Patient Studies Lab Studies: Microbiology Studies 01/30/18 13:52 Blood Culture - Preliminary Blood-During Dialysis NO GROWTH AFTER 3 DAYS 01/30/18 13:52 Blood Culture - Preliminary Blood-During Dialysis NO GROWTH AFTER 3 DAYS Lab Studies 02/02/18 02/02/18 02/02/18 Range/Units 14:52 08:08 01:00 WBC 25.5 H (4.8-10.8) K/uL RBC 2.74 L (4.40-5.90) Mil/uL Hgb 8.3 L (12.0-18.0) g/dL Hct 25.5 L (35.0-51.0) % MCV 92.9 (80.0-94.0) fL MCH 30.3 (27.0-31.0) pg MCHC 32.6 L (33.0-37.0) g/dL RDW 15.2 H (11.5-14.5) % Plt Count 280 (130-400) K/uL MPV 8.7 (7.2-11.7) fL Neut % (Auto) 95.1 H (50.0-75.0) % Lymph % (Auto) 1.1 L (20.0-40.0) % [place] % (Auto) 3.6 (0.0-10.0) % Eos % (Auto) 0.0 (0.0-4.0) % Baso % (Auto) 0.2 (0.0-2.0) % Neut # (Auto) 24.3 H (1.8-7.0) K/uL Lymph # (Auto) 0.3 L (1.0-4.3) K/uL [place] # (Auto) 0.9 H (0.0-0.8) K/uL Eos # (Auto) 0.0 (0.0-0.7) K/uL Baso # (Auto) 0.0 (0.0-0.2) K/uL Neutrophils % (Manual) 89 H (50-75) % Band Neutrophils % 6 H (0-2) % Lymphocytes % (Manual) 1 L (20-40) % Monocytes % (Manual) 2 (0-10) % Metamyelocytes % 1 H (0-0) % Myelocytes % 1 H (0-0) % Platelet Estimate Normal (NORMAL) Large Platelets Present Basophilic Stippling Slight Anisocytosis (manual) Slight Puncture Site Lf Rr pCO2 60 H 56 H (35-45) mm/Hg pO2 356 H 232 H (80-100) mm/Hg HCO3 22.8 29.7 H (21-28) mmol/L ABG pH 7.24 L 7.37 (7.35-7.45) ABG Total CO2 27.5 34.1 H (22-28) mmol/L ABG O2 Saturation 100.1 H 100.1 H (95-98) % ABG Base Excess -2.8 L 6.1 H (-2.0-3.0) mmol/L ABG Hemoglobin 8.7 L (11.7-17.4) g/dL ABG Carboxyhemoglobin 3.5 H (0.5-1.5) % POC ABG HHb (Measured) -0.1 L (0.0-5.0) % ABG Methemoglobin 1.7 (0.0-3.0) % Alber Test Na Pos ABG Potassium 2.7 L (3.6-5.2) mmol/L A-a O2 Difference 282.0 411.0 mm/Hg Respiratory Index 0.8 1.8 Hgb O2 Saturation 94.9 L (95.0-98.0) % Sodium 144.0 (132-148) mmol/l Chloride 118.0 H (98-107) mmol/L Glucose 91 (75-110) mg/dl FiO2 100.0 100.0 % Crit Value Called To Dr narayan Crit Value Called By [facility] Crit Value Read Back Y Blood Gas Notified Time 1455 POC Glucose (mg/dL) (65-110) mg/dL Arterial Blood Potassium 2.7 L (3.6-5.2) mmol/L 02/02/18 02/01/18 Range/Units 00:53 21:17 WBC (4.8-10.8) K/uL RBC (4.40-5.90) Mil/uL Hgb (12.0-18.0) g/dL Hct (35.0-51.0) % MCV (80.0-94.0) fL MCH (27.0-31.0) pg MCHC (33.0-37.0) g/dL RDW (11.5-14.5) % Plt Count (130-400) K/uL MPV (7.2-11.7) fL Neut % (Auto) (50.0-75.0) % Lymph % (Auto) (20.0-40.0) % [place] % (Auto) (0.0-10.0) % Eos % (Auto) (0.0-4.0) % Baso % (Auto) (0.0-2.0) % Neut # (Auto) (1.8-7.0) K/uL Lymph # (Auto) (1.0-4.3) K/uL [place] # (Auto) (0.0-0.8) K/uL Eos # (Auto) (0.0-0.7) K/uL Baso # (Auto) (0.0-0.2) K/uL Neutrophils % (Manual) (50-75) % Band Neutrophils % (0-2) % Lymphocytes % (Manual) (20-40) % Monocytes % (Manual) (0-10) % Metamyelocytes % (0-0) % Myelocytes % (0-0) % Platelet Estimate (NORMAL) Large Platelets Basophilic Stippling Anisocytosis (manual) Puncture Site pCO2 (35-45) mm/Hg pO2 (80-100) mm/Hg HCO3 (21-28) mmol/L ABG pH (7.35-7.45) ABG Total CO2 (22-28) mmol/L ABG O2 Saturation (95-98) % ABG Base Excess (-2.0-3.0) mmol/L ABG Hemoglobin (11.7-17.4) g/dL ABG Carboxyhemoglobin (0.5-1.5) % POC ABG HHb (Measured) (0.0-5.0) % ABG Methemoglobin (0.0-3.0) % Alber Test ABG Potassium (3.6-5.2) mmol/L A-a O2 Difference mm/Hg Respiratory Index Hgb O2 Saturation (95.0-98.0) % Sodium (132-148) mmol/l Chloride (98-107) mmol/L Glucose (75-110) mg/dl FiO2 % Crit Value Called To Crit Value Called By Crit Value Read Back Blood Gas Notified Time POC Glucose (mg/dL) 110 104 (65-110) mg/dL Arterial Blood Potassium (3.6-5.2) mmol/L Laboratory Results - last 24 hr 02/01/18 02/02/18 02/02/18 21:17 00:53 01:00 WBC RBC Hgb Hct MCV MCH MCHC RDW Plt Count MPV Neut % (Auto) Lymph % (Auto) [place] % (Auto) Eos % (Auto) Baso % (Auto) Neut # (Auto) Lymph # (Auto) [place] # (Auto) Eos # (Auto) Baso # (Auto) Neutrophils % (Manual) Band Neutrophils % Lymphocytes % (Manual) Monocytes % (Manual) Metamyelocytes % Myelocytes % Platelet Estimate Large Platelets Basophilic Stippling Anisocytosis (manual) Puncture Site Rr pCO2 56 H pO2 232 H HCO3 29.7 H ABG pH 7.37 ABG Total CO2 34.1 H ABG O2 Saturation 100.1 H ABG Base Excess 6.1 H ABG Hemoglobin 8.7 L ABG Carboxyhemoglobin 3.5 H POC ABG HHb (Measured) -0.1 L ABG Methemoglobin 1.7 Alber Test Pos ABG Potassium A-a O2 Difference 411.0 Respiratory Index 1.8 Hgb O2 Saturation 94.9 L Sodium Chloride Glucose FiO2 100.0 Crit Value Called To Crit Value Called By Crit Value Read Back Blood Gas Notified Time POC Glucose (mg/dL) 104 110 Arterial Blood Potassium 02/02/18 02/02/18 08:08 14:52 WBC 25.5 H RBC 2.74 L Hgb 8.3 L Hct 25.5 L MCV 92.9 MCH 30.3 MCHC 32.6 L RDW 15.2 H Plt Count 280 MPV 8.7 Neut % (Auto) 95.1 H Lymph % (Auto) 1.1 L [place] % (Auto) 3.6 Eos % (Auto) 0.0 Baso % (Auto) 0.2 Neut # (Auto) 24.3 H Lymph # (Auto) 0.3 L [place] # (Auto) 0.9 H Eos # (Auto) 0.0 Baso # (Auto) 0.0 Neutrophils % (Manual) 89 H Band Neutrophils % 6 H Lymphocytes % (Manual) 1 L Monocytes % (Manual) 2 Metamyelocytes % 1 H Myelocytes % 1 H Platelet Estimate Normal Large Platelets Present Basophilic Stippling Slight Anisocytosis (manual) Slight Puncture Site Lf pCO2 60 H pO2 356 H HCO3 22.8 ABG pH 7.24 L ABG Total CO2 27.5 ABG O2 Saturation 100.1 H ABG Base Excess -2.8 L ABG Hemoglobin ABG Carboxyhemoglobin POC ABG HHb (Measured) ABG Methemoglobin Alber Test Na ABG Potassium 2.7 L A-a O2 Difference 282.0 Respiratory Index 0.8 Hgb O2 Saturation Sodium 144.0 Chloride 118.0 H Glucose 91 FiO2 100.0 Crit Value Called To Dr narayan Crit Value Called By [facility] Crit Value Read Back Y Blood Gas Notified Time 1455 POC Glucose (mg/dL) Arterial Blood Potassium 2.7 L Critical Care Progress Note - Nutrition Nutrition: Nutrition Category Date Time Status Pureed [Dysphagia/Modified Consistency Diet] [DIET] Diets 01/30/18 Dinner Active Attending/Attestation - Attestation I have personally seen and examined this patient.: Yes I have fully participated in the care of the patient.: Yes I have reviewed all pertinent clinical information: Yes Notes (Text): 02/02/18 18:07 Patient was seen this am during [employer] for hypoxia needing about 40% ventimask form nasal cannula, CXR showed increased interstitial markings and some worsening opacity in the right base in my opinion pl effusion with DD of pna, atelectesis. Patient upgraded from medsurg to tele and hence he was brought into icu as tele patient. Over the period of the day patient has been more and more tired, exhausted and episodes of hypoxia needing NRB, hence icu eval was called. Repeat CXR showing worsening of the same radio opacity, ABG done shown no worsening of oxygenation but co2 retention, drop in PH. Patient was upgraded to ICU, prior course in hospital low hemoglobin, gi bleeding, s/p transfusion, ESRD on hd, poor intake, resistant Ecoli bacterimia. Spoke to daughter Oneyda who is also NOK, about him being tired and giving up, patient's daughter expressed knowledge of decline, poor intake and patient gradually being exhausted of his condition, and requested DNR/DNI. Daughter also inclining towards comfort measures but wants to take more time. DNR order inserted in the chart, daughter signed the DNR papers as well.
[2018-02-02 14:56] LABS: ARTERIAL BLOOD GAS HCO3 22.8 mmol/L (21-28); ARTERIAL BLOOD GAS O2 SAT 100.1 % (95-98); ARTERIAL BLOOD GAS PCO2 60 mm/Hg (35-45); ARTERIAL BLOOD GAS PH 7.24 (7.35-7.45); ARTERIAL BLOOD GAS PO2 356 mm/Hg (80-100); ARTERIAL BLOOD GAS TCO2 27.5 mmol/L (22-28)
--- NOTE | 2018-02-02 15:08 | RAD ---
Date of service: 02/02/2018 HISTORY: sob COMPARISON: 02/02/2018 at 1:21 a.m. FINDINGS: Left-sided dialysis catheter terminates in the right atrium. LUNGS: There is worsening pulmonary venous congestion and interstitial pulmonary edema. Mild left basilar atelectasis. PLEURA: Persistent moderate right pleural effusion, no pneumothorax apparent. CARDIOVASCULAR: The cardiomediastinal silhouette is stable. OSSEOUS STRUCTURES: No significant interval change. VISUALIZED UPPER ABDOMEN: Normal. OTHER FINDINGS: None. IMPRESSION: Worsening congestive heart failure.
--- NOTE | 2018-02-02 18:12 | CP.PCM.PN ---
Subjective - Date & Time of Evaluation Date of Evaluation: 02/02/18 Time of Evaluation: 10:15 - Subjective Subjective: clinically same Objective - Vital Signs/Intake and Output Vital Signs (last 24 hours): Temp Pulse Resp BP Pulse Ox 98.3 F 99 H 20 106/62 96 02/02/18 13:55 02/02/18 13:55 02/02/18 13:55 02/02/18 13:55 02/02/18 13:55 Intake and Output: 02/02/18 02/02/18 06:59 18:59 Intake Total 380 Balance 380 - Medications Medications: Current Medications Acetaminophen (Tylenol 325mg Tab) 650 mg PO Q4 PRN PRN Reason: Pain, Mild (1-3) Last Admin: 01/25/18 20:44 Dose: 650 mg Albuterol/Ipratropium (Duoneb 3 Mg/0.5 Mg (3 Ml) Ud) 3 ml INH RQ6 [facility] Last Admin: 02/02/18 07:10 Dose: 3 ml Ferrous Sulfate (Feosol) 325 mg PO BID [facility] Last Admin: 02/02/18 17:07 Dose: Not Given Folic Acid (Folic Acid) 1 mg PO DAILY [facility] Last Admin: 02/02/18 09:40 Dose: 1 mg Meropenem 500 mg/ Sodium (Chloride) 100 mls @ 100 mls/hr IVPB Q12H ANDREA PRN Reason: Protocol Last Admin: 02/02/18 09:38 Dose: 100 mls/hr Vancomycin HCl 500 mg/ Sodium (Chloride) 100 mls @ 100 mls/hr IVPB TTS ANDREA PRN Reason: Protocol Last Admin: 02/01/18 14:49 Dose: 100 mls/hr Levothyroxine Sodium (Synthroid) 100 mcg PO DAILY@0630 [facility] Last Admin: 02/02/18 07:00 Dose: Not Given Magnesium Hydroxide (Milk Of Magnesia) 30 ml PO HS PRN PRN Reason: Constipation Methylprednisolone (Solu-Medrol) 40 mg IVP Q12H [facility] Last Admin: 02/02/18 17:44 Dose: 40 mg Montelukast Sodium (Singulair) 10 mg PO DAILY [facility] Last Admin: 02/02/18 09:39 Dose: 10 mg Fluticasone/Salmeterol (Advair Diskus 250/50) 1 puff INH RQ12 [facility] Last Admin: 02/02/18 07:10 Dose: Not Given Sucralfate (Carafate Oral Susp) 1 gm PO BID [facility] Last Admin: 02/02/18 17:07 Dose: Not Given - Labs Labs: 02/02/18 08:08 02/01/18 07:00 PT 12.7 SECONDS (9.7-12.2) H 01/24/18 06:12 INR 1.2 01/24/18 06:12 APTT 28 SECONDS (21-34) 01/24/18 06:12
[2018-02-03] MEDS: Albuterol-Ipratrop 3 mg / 0.5 (3 ml) UD INH SCH ×3 (01:24→13:46)
[2018-02-03 06:06] VITALS: O2SAT 100
[2018-02-03] MEDS: Levothyroxine 100 MCG TAB PO SCH (06:41)
[2018-02-03] MEDS: MethylPREDNISolone 40 mg Vial IVP SCH ×2 (06:41→18:04)
[2018-02-03] MEDS: Fluticasone-Salmeterol 250-50mcg Diskus INH SCH (07:41)
[2018-02-03] MEDS: Meropenem 500 MG in Sodium Chloride 0.9% 100 ML IVPB SCH (09:42)
[2018-02-03] MEDS: Sucralfate 1 gm/10 ml Oral Susp UD PO SCH ×2 (09:42→17:20)
--- NOTE | 2018-02-03 11:18 | CP.PCM.PN ---
Subjective - Date & Time of Evaluation Date of Evaluation: 02/03/18 Time of Evaluation: 11:12 - Subjective Subjective: Events noted, transferred to ICU, placed on biPAP. Very dyspneic s/p dialysis 02/01- UF 1000ml Discussed with daughter and ICU team. Will hold further dialysis as patient not improving with treatments DNR/DNI noted. Only for comfort care now. Objective - Vital Signs/Intake and Output Vital Signs (last 24 hours): Temp Pulse Resp BP Pulse Ox 97.7 F 90 16 110/49 L 100 02/03/18 08:00 02/03/18 08:11 02/03/18 08:11 02/03/18 08:11 02/03/18 08:11 Intake and Output: 02/03/18 02/03/18 06:59 18:59 Intake Total 0 200 Balance 0 200 - Medications Medications: Current Medications Acetaminophen (Tylenol 325mg Tab) 650 mg PO Q4 PRN PRN Reason: Pain, Mild (1-3) Last Admin: 01/25/18 20:44 Dose: 650 mg Albuterol/Ipratropium (Duoneb 3 Mg/0.5 Mg (3 Ml) Ud) 3 ml INH RQ6 [facility] Last Admin: 02/03/18 07:40 Dose: 3 ml Ferrous Sulfate (Feosol) 325 mg PO BID [facility] Last Admin: 02/03/18 09:42 Dose: 325 mg Folic Acid (Folic Acid) 1 mg PO DAILY [facility] Last Admin: 02/03/18 09:42 Dose: 1 mg Meropenem 500 mg/ Sodium (Chloride) 100 mls @ 100 mls/hr IVPB Q12H [facility] PRN Reason: Protocol Last Admin: 02/03/18 09:42 Dose: 100 mls/hr Vancomycin HCl 500 mg/ Sodium (Chloride) 100 mls @ 100 mls/hr IVPB TTS ANDREA PRN Reason: Protocol Last Admin: 02/01/18 14:49 Dose: 100 mls/hr Levothyroxine Sodium (Synthroid) 100 mcg PO DAILY@0630 [facility] Last Admin: 02/03/18 06:41 Dose: Not Given Magnesium Hydroxide (Milk Of Magnesia) 30 ml PO HS PRN PRN Reason: Constipation Methylprednisolone (Solu-Medrol) 40 mg IVP Q12H [facility] Last Admin: 02/03/18 06:41 Dose: 40 mg Montelukast Sodium (Singulair) 10 mg PO DAILY [facility] Last Admin: 02/03/18 09:42 Dose: 10 mg Fluticasone/Salmeterol (Advair Diskus 250/50) 1 puff INH RQ12 [facility] Last Admin: 02/03/18 07:41 Dose: Not Given Sucralfate (Carafate Oral Susp) 1 gm PO BID [facility] Last Admin: 02/03/18 09:42 Dose: 1 gm - Labs Labs: 02/02/18 08:08 02/01/18 07:00 PT 12.7 SECONDS (9.7-12.2) H 01/24/18 06:12 INR 1.2 01/24/18 06:12 APTT 28 SECONDS (21-34) 01/24/18 06:12 - Constitutional Appears: In Acute Distress, Cachectic, Chronically Ill - Head Exam Head Exam: ATRAUMATIC, NORMAL INSPECTION - Eye Exam Eye Exam: EOMI, Normal appearance - Neck Exam Neck Exam: Normal Inspection. absent: Tenderness - Respiratory Exam Respiratory Exam: Rhonchi, Respiratory Distress - Cardiovascular Exam Cardiovascular Exam: Tachycardia, +S1 - GI/Abdominal Exam GI & Abdominal Exam: Soft. absent: Tenderness - Extremities Exam Extremities Exam: Normal Inspection. absent: Tenderness - Neurological Exam Neurological Exam: Altered - Skin Skin Exam: Dry, Warm Assessment and Plan (1) ESRD (end stage renal disease) Status: Acute (2) Severe anemia Status: Acute (3) Acute CHF Status: Acute (4) Atrial fibrillation with rapid ventricular response Status: Chronic (5) Bacteremia due to Escherichia coli Status: Acute - Assessment and Plan (Free Text) Plan: Hold dialysis Comfort care only
--- NOTE | 2018-02-03 15:08 | CP.PCM.PN ---
Subjective - Date & Time of Evaluation Date of Evaluation: 02/03/18 Time of Evaluation: 10:55 - Subjective Subjective: patient seen and examined Patient was placed on BiPAP last night for shortness breath Afebrile Objective - Vital Signs/Intake and Output Vital Signs (last 24 hours): Temp Pulse Resp BP Pulse Ox 97.8 F 93 H 15 102/46 L 100 02/03/18 13:00 02/03/18 13:46 02/03/18 12:11 02/03/18 12:11 02/03/18 12:11 Intake and Output: 02/03/18 02/03/18 06:59 18:59 Intake Total 0 200 Balance 0 200 - Medications Medications: Current Medications Acetaminophen (Tylenol 325mg Tab) 650 mg PO Q4 PRN PRN Reason: Pain, Mild (1-3) Last Admin: 01/25/18 20:44 Dose: 650 mg Albuterol/Ipratropium (Duoneb 3 Mg/0.5 Mg (3 Ml) Ud) 3 ml INH RQ6 [facility] Last Admin: 02/03/18 13:46 Dose: Not Given Ferrous Sulfate (Feosol) 325 mg PO BID [facility] Last Admin: 02/03/18 09:42 Dose: 325 mg Folic Acid (Folic Acid) 1 mg PO DAILY [facility] Last Admin: 02/03/18 09:42 Dose: 1 mg Meropenem 500 mg/ Sodium (Chloride) 100 mls @ 100 mls/hr IVPB Q12H [facility] PRN Reason: Protocol Last Admin: 02/03/18 09:42 Dose: 100 mls/hr Vancomycin HCl 500 mg/ Sodium (Chloride) 100 mls @ 100 mls/hr IVPB TTS [facility] PRN Reason: Protocol Last Admin: 02/01/18 14:49 Dose: 100 mls/hr Levothyroxine Sodium (Synthroid) 100 mcg PO DAILY@0630 [facility] Last Admin: 02/03/18 06:41 Dose: Not Given Magnesium Hydroxide (Milk Of Magnesia) 30 ml PO HS PRN PRN Reason: Constipation Methylprednisolone (Solu-Medrol) 40 mg IVP Q12H [facility] Last Admin: 02/03/18 06:41 Dose: 40 mg Montelukast Sodium (Singulair) 10 mg PO DAILY [facility] Last Admin: 02/03/18 09:42 Dose: 10 mg Fluticasone/Salmeterol (Advair Diskus 250/50) 1 puff INH RQ12 [facility] Last Admin: 02/03/18 07:41 Dose: Not Given Sucralfate (Carafate Oral Susp) 1 gm PO BID [facility] Last Admin: 02/03/18 09:42 Dose: 1 gm - Labs Labs: 02/02/18 08:08 02/01/18 07:00 PT 12.7 SECONDS (9.7-12.2) H 01/24/18 06:12 INR 1.2 01/24/18 06:12 APTT 28 SECONDS (21-34) 01/24/18 06:12 - Head Exam Head Exam: ATRAUMATIC, NORMOCEPHALIC - ENT Exam ENT Exam: Mucous Membranes Moist - Neck Exam Neck Exam: Normal Inspection - Respiratory Exam Respiratory Exam: Decreased Breath Sounds - Cardiovascular Exam Cardiovascular Exam: REGULAR RHYTHM - GI/Abdominal Exam GI & Abdominal Exam: Soft - Extremities Exam Extremities Exam: Pedal Edema Assessment and Plan (1) Respiratory insufficiency Assessment & Plan: Continue BiPAP Continue IV antibiotics Hemodialysis Case discussed with family Status: Acute (2) Pneumonia Status: Acute (3) ESRD (end stage renal disease) Status: Acute (4) Pleural effusion Status: Acute
--- NOTE | 2018-02-03 16:02 | CP.PCM.PN ---
Subjective - Date & Time of Evaluation Date of Evaluation: 02/03/18 Time of Evaluation: 14:45 - Subjective Subjective: dictated Objective - Vital Signs/Intake and Output Vital Signs (last 24 hours): Temp Pulse Resp BP Pulse Ox 97.8 F 93 H 15 102/46 L 100 02/03/18 13:00 02/03/18 13:46 02/03/18 12:11 02/03/18 12:11 02/03/18 12:11 Intake and Output: 02/03/18 02/03/18 06:59 18:59 Intake Total 0 200 Balance 0 200 - Medications Medications: Current Medications Acetaminophen (Tylenol 325mg Tab) 650 mg PO Q4 PRN PRN Reason: Pain, Mild (1-3) Last Admin: 01/25/18 20:44 Dose: 650 mg Albuterol/Ipratropium (Duoneb 3 Mg/0.5 Mg (3 Ml) Ud) 3 ml INH RQ6 [facility] Last Admin: 02/03/18 13:46 Dose: Not Given Ferrous Sulfate (Feosol) 325 mg PO BID [facility] Last Admin: 02/03/18 09:42 Dose: 325 mg Folic Acid (Folic Acid) 1 mg PO DAILY [facility] Last Admin: 02/03/18 09:42 Dose: 1 mg Meropenem 500 mg/ Sodium (Chloride) 100 mls @ 100 mls/hr IVPB Q12H [facility] PRN Reason: Protocol Last Admin: 02/03/18 09:42 Dose: 100 mls/hr Vancomycin HCl 500 mg/ Sodium (Chloride) 100 mls @ 100 mls/hr IVPB TTS [facility] PRN Reason: Protocol Last Admin: 02/01/18 14:49 Dose: 100 mls/hr Levothyroxine Sodium (Synthroid) 100 mcg PO DAILY@0630 [facility] Last Admin: 02/03/18 06:41 Dose: Not Given Magnesium Hydroxide (Milk Of Magnesia) 30 ml PO HS PRN PRN Reason: Constipation Methylprednisolone (Solu-Medrol) 40 mg IVP Q12H [facility] Last Admin: 02/03/18 06:41 Dose: 40 mg Montelukast Sodium (Singulair) 10 mg PO DAILY [facility] Last Admin: 02/03/18 09:42 Dose: 10 mg Fluticasone/Salmeterol (Advair Diskus 250/50) 1 puff INH RQ12 [facility] Last Admin: 02/03/18 07:41 Dose: Not Given Sucralfate (Carafate Oral Susp) 1 gm PO BID [facility] Last Admin: 02/03/18 09:42 Dose: 1 gm - Labs Labs: 02/02/18 08:08 02/01/18 07:00 PT 12.7 SECONDS (9.7-12.2) H 01/24/18 06:12 INR 1.2 01/24/18 06:12 APTT 28 SECONDS (21-34) 01/24/18 06:12 Assessment and Plan (1) E. coli septic shock Status: Acute (2) Thrombocytopenia Status: Acute (3) NOEMI (acute kidney injury) Status: Acute
[2018-02-03 18:10] VITALS: TEMP 98.2
[2018-02-03 18:14] VITALS: BP 96/45; PULSE 103; RESP 23
--- NOTE | 2018-02-03 20:56 | PN ---
DATE: 02/03/2018 SUBJECTIVE: The patient was seen in the ICU. He remains on BiPAP and is breathing easier. Actually, he is lethargic, on the BiPAP machine and his son and daughter from [place] are at the bedside. They said that their sister decides about him and that the sister is deciding whether it is good to have him on further dialysis or not and for further treatment. PHYSICAL EXAMINATION: VITAL SIGNS: T-max is 97.8, pulse 93, blood pressure 102/46, respirations on the BiPAP machine. GENERAL: He remains lethargic. NECK: Supple. LUNGS: Bilateral rhonchi. HEART: S1 and S2 are regular. ABDOMEN: Soft, nontender. No guarding. No rigidity present. Catheter was changed before. EXTREMITIES: Remain with bilateral nonadhesive dressings on both lower legs. He has ulcerations. LABORATORY DATA: Labs show white count of 25.5, hemoglobin 8.3, hematocrit is 25.9, neutrophils are 89. He is a dialysis patient, creatinine is 2.9. Micro cardenas, his blood cultures were E. colic and he had the catheter changed. They are waiting for a sputum culture. ASSESSMENT AND PLAN: The patient is on vancomycin and Merrem. He is also on steroids now and most probably the white count is secondary to steroids and/or infection. He does have respiratory issues and he has renal failure and he does recently had the catheter changed. We will discontinue isolation as the recent blood cultures are negative. The patient remains, however, acutely ill and continue present medications at this time. We will follow. He did come with a hemoglobin of 4. Carmen Alejandro MD
--- NOTE | 2018-02-07 22:08 | CP.PCM.PN ---
Subjective - Date & Time of Evaluation Date of Evaluation: 01/31/18 Time of Evaluation: 12:00 - Subjective Subjective: Awake Objective - Vital Signs/Intake and Output Vital Signs (last 24 hours): Temp Pulse Resp BP Pulse Ox 98.2 F 103 H 23 96/45 L 100 02/03/18 17:00 02/03/18 18:00 02/03/18 18:00 02/03/18 16:11 02/03/18 18:00 - Labs Labs: 02/02/18 08:08 02/01/18 07:00 PT 12.7 SECONDS (9.7-12.2) H 01/24/18 06:12 INR 1.2 01/24/18 06:12 APTT 28 SECONDS (21-34) 01/24/18 06:12 - Head Exam Head Exam: ATRAUMATIC - ENT Exam ENT Exam: Mucous Membranes Dry - Respiratory Exam Respiratory Exam: Decreased Breath Sounds - Cardiovascular Exam Cardiovascular Exam: +S1, +S2 - GI/Abdominal Exam GI & Abdominal Exam: Normal Bowel Sounds Assessment and Plan (1) Anemia Assessment & Plan: chronic disease, renal disease GIANA per renal FOBT positive transfusion support PRN Status: Acute (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
--- NOTE | 2018-02-07 22:10 | CP.PCM.PN ---
Subjective - Date & Time of Evaluation Date of Evaluation: 02/01/18 Time of Evaluation: 12:00 - Subjective Subjective: Awake but confused. Objective - Vital Signs/Intake and Output Vital Signs (last 24 hours): Temp Pulse Resp BP Pulse Ox 98.2 F 103 H 23 96/45 L 100 02/03/18 17:00 02/03/18 18:00 02/03/18 18:00 02/03/18 16:11 02/03/18 18:00 - Labs Labs: 02/02/18 08:08 02/01/18 07:00 PT 12.7 SECONDS (9.7-12.2) H 01/24/18 06:12 INR 1.2 01/24/18 06:12 APTT 28 SECONDS (21-34) 01/24/18 06:12 - Head Exam Head Exam: ATRAUMATIC - Eye Exam Eye Exam: Normal appearance - ENT Exam ENT Exam: Mucous Membranes Dry - Respiratory Exam Respiratory Exam: NORMAL BREATHING PATTERN - Cardiovascular Exam Cardiovascular Exam: +S1, +S2 - GI/Abdominal Exam GI & Abdominal Exam: Normal Bowel Sounds Assessment and Plan (1) Anemia Assessment & Plan: chronic disease, renal disease GIANA per renal FOBT positive transfusion support PRN Status: Acute (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
--- NOTE | 2018-02-07 22:13 | CP.PCM.PN ---
Subjective - Date & Time of Evaluation Date of Evaluation: 02/03/18 Time of Evaluation: 11:00 - Subjective Subjective: on bipap for comfort measure. Objective - Vital Signs/Intake and Output Vital Signs (last 24 hours): Temp Pulse Resp BP Pulse Ox 98.2 F 103 H 23 96/45 L 100 02/03/18 17:00 02/03/18 18:00 02/03/18 18:00 02/03/18 16:11 02/03/18 18:00 - Labs Labs: 02/02/18 08:08 02/01/18 07:00 PT 12.7 SECONDS (9.7-12.2) H 01/24/18 06:12 INR 1.2 01/24/18 06:12 APTT 28 SECONDS (21-34) 01/24/18 06:12 - Head Exam Head Exam: ATRAUMATIC - Eye Exam Eye Exam: Normal appearance - ENT Exam ENT Exam: Mucous Membranes Dry - Respiratory Exam Respiratory Exam: NORMAL BREATHING PATTERN - Cardiovascular Exam Cardiovascular Exam: +S1, +S2 - GI/Abdominal Exam GI & Abdominal Exam: Normal Bowel Sounds Assessment and Plan (1) Anemia Assessment & Plan: chronic disease, renal disease GIANA per renal FOBT positive transfusion support PRN Status: Acute (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
--- NOTE | 2018-02-07 22:55 | PQF ---
PROVIDER RESPONSE TEXT: Severe sepsis/intubated bilateral pneumponia With acute on chronic combied chf REVIEWER QUERY TEXT: Rule Out Sepsis Clarification Rule out Sepsis is documented in the Medical Record. Please clarify whether: -- Patient has sepsis - Please document confirmed, suspected or probable causative organism - Please document confirmed, suspected or probable localized infection - Please clarify if sepsis is related to a device - Please clarify if sepsis was present on admission -- Sepsis was ruled out (include corresponding diagnosis for patient?s clinical picture and treatment ) -- Patient had sepsis which is resolved -- Other, please specify The patient's Clinical Indicators include: 01/30/18 Progress Note 87 year old male sent in from [facility] after being found Lethargic. Patient is on Dialysis. 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 ; COPD, CHF/HTN/ESRD 01/30/18 P.NMike Smith MD - Catheter sepsis, localized redness at the site, and Labs are showi ng White Count 14.3 Blood Culture Positive for E. Coli Query created by: Jolynn Gan on 02/06/2018 2:20 PM Electronically signed by: Angelica FARRIS 02/07/2018 10:52 PM
== END 2018-02-03 18:20 | DRG 871 ==
LOC: C.ER 11:27 → C.9E 14:16 → C.9I 15:26 → C.3T 01-27 18:34 → C.9I 02-02 05:36
PROVIDERS: ADMIT Internal Medicine Nephrology; ATTEND Internal Medicine Nephrology
PROC: 30233N1 Transfusion of Nonautologous Red Blood Cells into Peripheral Vein, Percutaneous Approach (ICD-10-PCS; 2018-01-23)
PROC: 5A09457 Assistance with Respiratory Ventilation, 24-96 Consecutive Hours, Continuous Positive Airway Pressure (ICD-10-PCS; 2018-01-23)
PROC: 0DB88ZX Excision of Small Intestine, Via Natural or Artificial Opening Endoscopic, Diagnostic (ICD-10-PCS; 2018-01-23)
PROC: 02HV33Z Insertion of Infusion Device into Superior Vena Cava, Percutaneous Approach (ICD-10-PCS; 2018-01-24)
PROC: 02PY33Z Removal of Infusion Device from Great Vessel, Percutaneous Approach (ICD-10-PCS; 2018-01-28)
PROC: 06H033Z Insertion of Infusion Device into Inferior Vena Cava, Percutaneous Approach (ICD-10-PCS; principal; 2018-01-28 15:45)
DX: A41.51 Sepsis due to Escherichia coli [E. coli] (principal); N18.6 End stage renal disease; G93.41 Metabolic encephalopathy; R65.21 Severe sepsis with septic shock; J18.9 Pneumonia, unspecified organism; C18.9 Malignant neoplasm of colon, unspecified; C78.00 Secondary malignant neoplasm of unspecified lung; E46 Unspecified protein-calorie malnutrition; I13.2 Hypertensive heart and chronic kidney disease with heart failure and with stage 5 chronic kidney disease, or end stage renal disease; J44.0 Chronic obstructive pulmonary disease with (acute) lower respiratory infection; J98.11 Atelectasis; M81.0 Age-related osteoporosis without current pathological fracture; D50.0 Iron deficiency anemia secondary to blood loss (chronic); D63.8 Anemia in other chronic diseases classified elsewhere; D69.6 Thrombocytopenia, unspecified; E11.22 Type 2 diabetes mellitus with diabetic chronic kidney disease; E03.9 Hypothyroidism, unspecified; E11.65 Type 2 diabetes mellitus with hyperglycemia; I25.10 Atherosclerotic heart disease of native coronary artery without angina pectoris; I48.91 Unspecified atrial fibrillation; I50.9 Heart failure, unspecified; J20.9 Acute bronchitis, unspecified; Z51.5 Encounter for palliative care